=== PATIENT | female | born 1965 | race Two or more races ===

== ENCOUNTER 2017-01-03 17:39 | Observation (INO) | payer SELFPAY ==
[2017-01-03 17:50] VITALS: BMI 31.1
[2017-01-03 18:22] LABS: BASOPHIL 0.5 % (0-2.0); MCHC 33.9 g/dl (32.0-36.0); MEAN CELL VOLUME 88.3 fl (80-96); PLATELET COUNT 250 K/MM3 (134-434); RDW 14.5 % (11.6-15.6); WHITE BLOOD COUNT 9.6 K/mm3 (4.0-10.0)
[2017-01-03] MEDS ORDERED: ASPIRIN 81 MG CHEWABLE TABLETS ONE (18:22)
[2017-01-03 18:50] LABS: ALBUMIN 3.5 g/dl (3.4-5.0); ANION GAP 10 (8-16); CALCIUM 8.7 mg/dL (8.5-10.1); CO2 25 mmol/L (21-32); GLUCOSE,RANDOM 99 mg/dL (74-106); MAGNESIUM 1.7 mg/dL (1.8-2.4)
[2017-01-03] MEDS ORDERED: ASPIRIN 81 MG CHEWABLE TABLETS PO ONE (18:50)
[2017-01-03] MEDS ORDERED: NITROGLYCERIN SUBLINGUAL 1/150 0.4 MG TAB SL ONE (18:50)
[2017-01-03] MEDS ORDERED: SODIUM CHLORIDE 1,000 ML IV STA (18:50)
[2017-01-03 18:56] LABS: ALK PHOS 75 U/L (45-117); BILIRUBIN,TOTAL 0.4 mg/dL (0.2-1.0); CREATININE 0.9 mg/dL (0.55-1.02); SGOT/AST 41 U/L (15-37); SGPT/ALT 59 U/L (12-78); TOT PROT 7.6 g/dl (6.4-8.2); TROPONIN I < 0.02 ng/ml (0.00-0.05)
--- NOTE | 2017-01-03 18:59 | PDOC ---
History of Present Illness - General History Source: Patient, Old Records Exam Limitations: No Limitations - History of Present Illness Initial Comments: 01/03/17 19:13 The patient is a 51 year old female, with a significant past medical history of asthma and hypertension (patient has been noncompliant with medications for the past 3 months due to insurance issues), who presents to the emergency department with nonradiating midsternal chest pressure since the patient woke up this morning. The patient describes the chest pressure as squeezing and reports an associated tension-like headache. The patient states that she experienced similar symptoms in the past when her blood pressure was uncontrolled and was too high. The patient denies palpitations or shortness of breath. The patient denies fever, chills, cough, nausea, vomiting or any recent illnesses. Allergies: Morphine. Past Surgical History: None reported. Social History: Former smoker (quit 8 months ago). Denies alcohol or drug use. <Joselyn Guerrero - Last Filed: 01/03/17 20:59> - General History Source: Patient, Family Exam Limitations: No Limitations <Ernesto Heller - Last Filed: 01/03/17 21:29> - General Chief Complaint: Chest Pain Stated Complaint: CHEST PAIN Time Seen by Provider: 01/03/17 18:01 Past History <Joselyn Guerrero - Last Filed: 01/03/17 20:59> - Past Medical History Anemia: Yes (iron deficiency) Asthma: Yes HTN: Yes Thyroid Disease: Yes (hypo) - Immunization History Immunization Up to Date: Yes - Psycho/Social/Smoking Cessation Hx Anxiety: No Suicidal Ideation: No Smoking Status: No Smoking History: Never smoked Have you smoked in the past 12 months: Yes Number of Cigarettes Smoked Daily: 0 If you are a former smoker, when did you quit?: 8 months ago Information on smoking cessation initiated: No Hx Alcohol Use: No Drug/Substance Use Hx: No Substance Use Type: None <Ernesto Heller - Last Filed: 01/03/17 21:29> - Past Medical History Allergies/Adverse Reactions: Allergies Allergy/AdvReac Type Severity Reaction Status Date / Time morphine Allergy Severe Hives Verified 01/03/17 17:50 Home Medications: Ambulatory Orders Albuterol Sulfate [Proair Respiclick] 90 mcg IH Q3H PRN #1 aer.pow.[email or web address] 03/07/16 Amlodipine Besylate [Norvasc -] 10 mg PO DAILY #30 tablet 03/07/16 Salmeterol/Fluticasone [Advair 100Mcg/50Mcg -] 1 puff IH BID #1 inhaler Levothyroxine [Synthroid -] 75 mcg PO DAILY 05/05/16 Sertraline HCl [Zoloft -] 25 mg PO DAILY 05/05/16 Amoxicillin - [Amoxicillin 875mg Tablet -] 875 mg PO BID #14 tab 10/16/16 Review of Systems - Review of Systems Able to Perform ROS?: Yes Comments:: 01/03/17 19:11 GENERAL/CONSTITUTIONAL: No fever or chills. No weakness. HEAD, EYES, EARS, NOSE AND THROAT: No change in vision. No ear pain or discharge. No sore throat. CARDIOVASCULAR: +Chest pressure. No shortness of breath. RESPIRATORY: No cough, wheezing, or hemoptysis. GASTROINTESTINAL: No nausea, vomiting, diarrhea or constipation. GENITOURINARY: No dysuria, frequency, or change in urination. MUSCULOSKELETAL: No joint or muscle swelling or pain. No neck or back pain. SKIN: No rash. NEUROLOGIC: +Headache. No vertigo, loss of consciousness, or change in strength/ sensation. ENDOCRINE: No increased thirst. No abnormal weight change. HEMATOLOGIC/LYMPHATIC: No anemia, easy bleeding, or history of blood clots. ALLERGIC/IMMUNOLOGIC: No hives or skin allergy. <Joselyn Guerrero - Last Filed: 01/03/17 20:59> *Physical Exam - Vital Signs Last Vital Signs Temp Pulse Resp BP Pulse Ox 98 F 90 19 169/139 98 01/03/17 17:48 01/03/17 17:48 01/03/17 17:48 01/03/17 17:48 01/03/17 17:48 - Physical Exam Comments: 01/03/17 19:10 GENERAL: Awake, alert, and fully oriented, in no acute distress. HEAD: No signs of trauma. EYES: PERRLA, EOMI, sclera anicteric, conjunctiva clear. ENT: Auricles normal inspection, hearing grossly normal, nares patent, oropharynx clear without exudates. Moist mucosa. NECK: Normal ROM, supple, no lymphadenopathy, JVD, or masses. LUNGS: Breath sounds equal, clear to auscultation bilaterally. No wheezes, and no crackles. HEART: Regular rate and rhythm, normal S1 and S2, no murmurs, rubs or gallops. ABDOMEN: Soft, nontender, normoactive bowel sounds. No guarding, no rebound. No masses. EXTREMITIES: Normal range of motion, no edema. No clubbing or cyanosis. No cords , erythema, or tenderness. NEUROLOGICAL: Cranial nerves II through XII intact. Normal speech, normal gait. SKIN: Warm, dry, normal turgor, no rashes or lesions noted. <Joselyn Guerrero - Last Filed: 01/03/17 20:59> - Vital Signs Last Vital Signs Temp Pulse Resp BP Pulse Ox 98 F 90 19 169/139 98 01/03/17 17:48 01/03/17 17:48 01/03/17 17:48 01/03/17 17:48 01/03/17 17:48 <Ernesto Heller - Last Filed: 01/03/17 21:29> Heart Score/ECG Review - History History: Moderately suspicious - Electrocardiogram EKG: Normal - Age Age: 45-65 - Risk Factors Risk Factors Heart Score: Yes Hx Hypertension, Yes Hx Obesity Based on the list above the patient has:: 1-2 risk factors - Troponin Troponin: </= normal limit - Score Heart Score - Total: 3 #1 ECG reviewed & interpreted by me at: 17:50 01/03/17 18:55 NSR 86 no std/lianet, normal axis, normal intervals, QTC 457 msec. no brugada, no HOCM, no WPW <Ernesto Heller - Last Filed: 01/03/17 21:29> ED Treatment Course - LABORATORY CBC & Chemistry Diagram: 01/03/17 18:10 01/03/17 18:10 - ADDITIONAL ORDERS Additional order review: Laboratory Results 01/03/17 01/03/17 18:10 18:10 Sodium 140 Potassium 3.7 Chloride 105 Carbon Dioxide 25 Anion Gap 10 BUN 12 Creatinine 0.9 Creat Clearance w eGFR > 60 Random Glucose 99 Calcium 8.7 Magnesium 1.7 L Total Bilirubin 0.4 D AST 41 H D ALT 59 D Alkaline Phosphatase 75 Creatine Kinase 96 Troponin I < 0.02 Total Protein 7.6 Albumin 3.5 Serum , Qual Negative 01/03/17 18:10 RBC 4.16 MCV 88.3 MCHC 33.9 RDW 14.5 MPV 8.0 Neutrophils % 69.0 Lymphocytes % 21.2 Monocytes % 6.3 Eosinophils % 3.0 Basophils % 0.5 - Medications Given in the ED: ED Medications Discontinued Medications Generic Name Dose Route Start Last Admin Trade Name Tomq PRN Reason Stop Dose Admin Aspirin 324 mg 01/03/17 18:50 01/03/17 18:59 Asa - PO 01/03/17 18:51 324 mg ONCE ONE Administration Nitroglycerin 0.4 mg 01/03/17 18:50 01/03/17 18:40 Nitrostat - SL 01/03/17 18:51 0.4 mg ONCE ONE Administration <Joselyn Guerrero - Last Filed: 01/03/17 20:59> - LABORATORY CBC & Chemistry Diagram: 01/03/17 18:10 01/03/17 18:10 - ADDITIONAL ORDERS Additional order review: Laboratory Results 01/03/17 18:10 Serum , Qual Negative 01/03/17 18:10 RBC 4.16 MCV 88.3 MCHC 33.9 RDW 14.5 MPV 8.0 Neutrophils % 69.0 Lymphocytes % 21.2 Monocytes % 6.3 Eosinophils % 3.0 Basophils % 0.5 - RADIOLOGY Radiology Studies Ordered: Category Date Time Status HEAD CT WITHOUT CONTRAST [CT] Stat CT Scan 01/03/17 18:10 Ordered CHEST X-RAY PORTABLE* [RAD] Stat Radiology 01/03/17 18:10 Completed <Ernesto Heller - Last Filed: 01/03/17 21:29> Medical Decision Making - Medical Decision Making 01/03/17 19:16 EXAM: RAD/CHEST X-RAY PORTABLE Reviewed By: Dr. Destiny Santos IMPRESSION: No acute cardiopulmonary disease is present. EXAM: CT/HEAD CT Reviewed By: Dr. Berenice Townsend IMPRESSION: 1. There is no evidence of an acute intracranial process, intracranial hemorrhage or mass effect. 2. The ventricles are normal size. 3. 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 There is mild to moderate right ethmoid and sphenoid sinus mucosal thickening. <Joselyn Guerrero - Last Filed: 01/03/17 20:59> - Medical Decision Making 01/03/17 18:57 A portion of this note was documented by scribe services under my direction. I have reviewed the details of the note, within reason, and agree with the documentation with the following case summary and management plan written by me. Patient treated in the ED. Nursing notes are reviewed and incorporated into the medical decision-making. Vital signs reviewed. Peripheral IV access obtained by the nurse, laboratory studies are drawn and sent, reviewed and interpreted by myself. Vital Signs Temp Pulse Resp BP Pulse Ox 98 F 90 19 169/139 98 01/03/17 17:48 01/03/17 17:48 01/03/17 17:48 01/03/17 17:48 01/03/17 17:48 51-year-old female with past medical history of hypertension, asthma presents to the ED for elevated blood pressures and chest pressure. Patient reported yesterday feeling fatigued but without any focal symptoms. Today, patient woke up with chest tightness radiating up to her head. Reports a tension-like headache. She reports that she's not been taking her blood pressure medication last 3 months as she is having insurance issues. She does not remember the name of her medicines. Patient reported that she had a similar incident several years ago chest tightness in setting hypertension. She was admitted and worked up but did not have an VT at that time. Patient noted have elevated blood pressures here. We'll need to rule out VT. Given the headache and elevated blood pressure, we'll obtain head CT, though I have low suspicions for subarachnoid hemorrhage. We'll trial nitroglycerin and aspirin. We will admit the patient to the hospital for further nausea for cardiac workup. 01/03/17 21:[address] reviewed. No acute findings. Nitro improved blood pressure CBC, BMP 01/03/17 18:10 01/03/17 18:10 CMP Sodium 140 mmol/L (136-145) 01/03/17 18:10 Potassium 3.7 mmol/L (3.5-5.1) 01/03/17 18:10 Chloride 105 mmol/L (98-107) 01/03/17 18:10 Carbon Dioxide 25 mmol/L (21-32) 01/03/17 18:10 Anion Gap 10 (8-16) 01/03/17 18:10 BUN 12 mg/dL (7-18) 01/03/17 18:10 Creatinine 0.9 mg/dL (0.55-1.02) 01/03/17 18:10 Creat Clearance w eGFR > 60 (>60) 01/03/17 18:10 Random Glucose 99 mg/dL (74-106) 01/03/17 18:10 Calcium 8.7 mg/dL (8.5-10.1) 01/03/17 18:10 Magnesium 1.7 mg/dL (1.8-2.4) L 01/03/17 18:10 Total Bilirubin 0.4 mg/dL (0.2-1.0) D 01/03/17 18:10 AST 41 U/L (15-37) H D 01/03/17 18:10 ALT 59 U/L (12-78) D 01/03/17 18:10 Alkaline Phosphatase 75 U/L (45-117) 01/03/17 18:10 Creatine Kinase 96 IU/L (26-192) 01/03/17 18:10 Troponin I < 0.02 ng/ml (0.00-0.05) 01/03/17 18:10 Total Protein 7.6 g/dl (6.4-8.2) 01/03/17 18:10 Albumin 3.5 g/dl (3.4-5.0) 01/03/17 18:10 Serum , Qual Negative 01/03/17 18:10 Labs reviewed. Pt's chest pain persist despite nitro. Will admit for TASHA. Case discussed with Dr. Montalvo. She accepts under telemetry observation. Case discussed in detail with admitting physician including history, physical exam and ancillary studies. Admitting physician has assumed care for the patient, will follow all pending diagnostics and will complete the evaluation and treatment. <Ernesto Heller - Last Filed: 01/03/17 21:29> *DC/Admit/Observation/Transfer - Attestations Scribe Attestion: 01/03/17 19:10 Documentation prepared by Joselyn Guerrero, acting as medical technologist clinical for Ernesto Heller MD. <Joselyn Guerrero - Last Filed: 01/03/17 20:59> - Discharge Dispostion Admit: Yes <Erensto Heller - Last Filed: 01/03/17 21:29> Diagnosis at time of Disposition: Chest pain Qualifiers: Chest pain type: unspecified Qualified Code(s): R07.9 - Chest pain, unspecified - Discharge Dispostion Condition at time of disposition: Stable
[2017-01-03] MEDS ORDERED: ACETAMINOPHEN INJECTION 100 ML IVPB ONE (19:50)
[2017-01-03] MEDS ORDERED: ACETAMINOPHEN 1000 MG/100 ML VIAL (NON FORMULARY) IVPB ONE (20:00)
[2017-01-03] MEDS ORDERED: HYDROmorphone HCL CARPU-JECT 1 MG/1 ML DISP.SYRIN IVPB ONE (21:28)
[2017-01-03] MEDS ORDERED: PATIENT'S OWN MEDICATION (NON-FORMULARY) (Albuterol Sulfate [Proair Respiclick] 90 MCG) IH PRN (22:19)
[2017-01-03] MEDS ORDERED: ONDANSETRON 4 MG/2 ML VIAL IVPB PRN (22:25)
[2017-01-03] MEDS ORDERED: HYDROmorphone HCL CARPU-JECT 1 MG/1 ML DISP.SYRIN IVPUSH PRN (22:25)
[2017-01-03] MEDS ORDERED: NITROGLYCERIN SUBLINGUAL 1/150 0.4 MG TAB SL PRN (22:25)
[2017-01-03] MEDS ORDERED: ENALAPRILAT DIHYDRATE 1.25 MG/1 ML VIAL IVPB PRN (22:29)
[2017-01-03] MEDS ORDERED: DEXTROSE 5%-NORMAL SALINE 1,000 ML IV SCH (22:30)
--- NOTE | 2017-01-03 22:34 | HP ---
<Alexandria Lobato - Last Filed: 01/03/17 22:47> CHIEF COMPLAINT: Chest Pain PCP: -- HISTORY OF PRESENT ILLNESS: The patient is a 51 yo F who presents to the ED with CC of mid sternal chest pain, constant, 10/10 in severity, pressure like, that started in the middle of the night with associated cold sweats. She denies any exacerbating or alleviating factors. She denies taking any medications for pain relief. The patient reports previous episodes of chest pain couple of years ago where she was hospitalized and had undergone stress test but was unable to tolerate it. Patient unable to follow up with PCP due to insurance issues. Patient also complains of sore throat, which she was treated for with Amoxicillin with no relief. The patient presents to the ED for further evaluation. She denies SOB, headache or dizziness. She denies fever, chills, nausea, vomit, diarrhea or constipation. She denies dysuria, frequency, urgency or hematuria. PMHx: HTN, Asthma, Hypothyroidism, Varicose veins, Peptic ulcerative disease PSHx: Tubal ligation, Uterine fibroid surgery Allergies: Morphine Family Hx: Father at age 78 due to CAD and AL , Grandmother and mother with unknown CA Social Hx: Former smoker (30 packs/year) since age of 17 Recent Travel: None HOME MEDICATIONS: Home Medications Medication Instructions Recorded Albuterol Sulfate [Proair 90 mcg IH Q3H PRN #1 aer.pow.ba 03/07/16 Respiclick] Amlodipine Besylate [Norvasc -] 10 mg PO DAILY #30 tablet 03/07/16 Salmeterol/Fluticasone [Advair 1 puff IH BID #1 inhaler 03/07/16 100Mcg/50Mcg -] Levothyroxine [Synthroid -] 75 mcg PO DAILY 05/05/16 Sertraline HCl [Zoloft -] 25 mg PO DAILY 05/05/16 Amoxicillin - [Amoxicillin 875mg 875 mg PO BID #14 tab 10/16/16 Tablet -] REVIEW OF SYSTEMS CONSTITUTIONAL: Absent: fever, chills, diaphoresis, generalized weakness, malaise, loss of appetite, weight change HEENT: +cough. +sore throat. Absent: rhinorrhea, nasal congestion, throat swelling, difficulty swallowing, mouth swelling, ear pain, eye pain, visual changes CARDIOVASCULAR: Absent: chest pain, syncope, palpitations, irregular heart rate, lightheadedness , peripheral edema RESPIRATORY: Absent: cough, shortness of breath, dyspnea with exertion, orthopnea, wheezing, stridor, hemoptysis GASTROINTESTINAL: +acid reflux. Absent: abdominal pain, abdominal distension, nausea, vomiting, diarrhea, constipation, melena, hematochezia GENITOURINARY: Absent: dysuria, frequency, urgency, hesitancy, hematuria, flank pain, genital pain MUSCULOSKELETAL: Absent: myalgia, arthralgia, joint swelling, back pain, neck pain SKIN: Absent: rash, itching, pallor HEMATOLOGIC/IMMUNOLOGIC: Absent: easy bleeding, easy bruising, lymphadenopathy, frequent infections ENDOCRINE: Absent: unexplained weight gain, unexplained weight loss, heat intolerance, cold intolerance NEUROLOGIC: +headache Absent: focal weakness or paresthesias, dizziness, unsteady gait, seizure, mental status changes, bladder or bowel incontinence PSYCHIATRIC: Absent: anxiety, depression, suicidal or homicidal ideation, hallucinations. PHYSICAL EXAMINATION Vital Signs - 24 hr 01/03/17 01/03/17 17:48 19:20 Temperature 98 F Pulse Rate 90 Pulse Rate [ 58 L Apical] Respiratory 19 18 Rate Blood Pressure 169/139 Blood Pressure 152/102 [Right Arm] O2 Sat by Pulse 98 99 Oximetry (%) GENERAL: Awake, alert, and fully oriented, in no acute distress. HEAD: Normal with no signs of trauma. EYES: Pupils equal, round and reactive to light, extraocular movements intact, sclera anicteric, conjunctiva clear. No lid lag. EARS, NOSE, THROAT: Ears normal, nares patent, oropharynx. Moist mucous membranes. +erythema with no exudates. NECK: Normal range of motion, supple without lymphadenopathy, JVD, or masses. LUNGS: Breath sounds equal, clear to auscultation bilaterally. No wheezes, and no crackles. No accessory muscle use. HEART: Regular rate and rhythm, normal S1 and S2 without murmur, rub or gallop. +Reproducible chest pain. ABDOMEN: + Epigastric tenderness to palpation. Soft, nontender, not distended, normoactive bowel sounds, no guarding, no rebound, no masses. No hepatomegaly or splenomegaly. MUSCULOSKELETAL: Normal range of motion at all joints. No bony deformities or tenderness. No CVA tenderness. UPPER EXTREMITIES: 2+ pulses, warm, well-perfused. No cyanosis. No clubbing. No peripheral edema. LOWER EXTREMITIES: 2+ pulses, warm, well-perfused. No calf tenderness. No peripheral edema. NEUROLOGICAL: Cranial nerves II-XII intact. Normal speech. PSYCHIATRIC: Cooperative. Good eye contact. Appropriate mood and affect. SKIN: Warm, dry, normal turgor, no rashes or lesions noted, normal capillary refill. Laboratory Results - last 24 hr 01/03/17 01/03/17 01/03/17 18:10 18:10 18:10 WBC 9.6 RBC 4.16 Hgb 12.5 Hct 36.7 MCV 88.3 MCHC 33.9 RDW 14.5 Plt Count 250 MPV 8.0 Neutrophils % 69.0 Lymphocytes % 21.2 Monocytes % 6.3 Eosinophils % 3.0 Basophils % 0.5 Sodium 140 Potassium 3.7 Chloride 105 Carbon Dioxide 25 Anion Gap 10 BUN 12 Creatinine 0.9 Creat Clearance w eGFR > 60 Random Glucose 99 Calcium 8.7 Magnesium 1.7 L Total Bilirubin 0.4 D AST 41 H D ALT 59 D Alkaline Phosphatase 75 Creatine Kinase 96 Troponin I < 0.02 Total Protein 7.6 Albumin 3.5 Serum , Qual Negative EKG Reviewed by Dr. Montalvo Impression: NSR at 86 bpm ASSESSMENT/PLAN: 51 yo F with PMhx of HTN presents with atypical chest pain. 1.) Chest pain/ Atypical, musculoskeletal however considering risk factors will have to r/o ACS. Patient has epigastric tenderness and gastritis/peptic ulcerative disease cannot be excluded. Plan: -Serial cardiac enzymes -Aspirin -BP control -IV PPIs -Pain control with IV Dilaudid prn (avoid NSAIDs) 2.) Uncontrolled HTN Plan: -Will start low dose of amlodipine -Monitor BP -Adjust medications accordingly 3.) Hypothyroidism Plan: -Will continue with current dose synthroid 4.) Hx of Asthma Plan: -Currently stable -Plan to continue Advair and Albuterol as needed 5.) Sore throat: Patient apparently completed dose of amoxicillin as outpatient 6.) Gastritis, Possible peptic ulcerative disease Plan: - IV PPIs -Clear liquid diet -Will involve Gi if no improvement of her symptoms -US of RUQ to r/o cholecystitis 7.) DVT PPx -SCDs Admitted for inpatient observation. Documentation prepared by Alexandria Lobato, acting as medical surgery nurse for Sara Montalvo MD. <Sara Montalvo - Last Filed: 01/03/17 22:53> Visit type - Emergency Visit Emergency Visit: Yes Care time: The patient presented to the Emergency Department on the above date and was hospitalized for further evaluation of their emergent condition. - New Patient This patient is new to me today: Yes Date on this admission: 01/03/17 - Critical Care Critical Care patient: No
[2017-01-04] MEDS ORDERED: ONDANSETRON 4 MG/2 ML VIAL ONE (03:21)
[2017-01-04] MEDS ORDERED: HYDROmorphone HCL CARPU-JECT 1 MG/1 ML DISP.SYRIN ONE ×2 (03:21)
[2017-01-04] MEDS ORDERED: LEVOTHYROXINE NA 75 MCG TABLET (FP) PO SCH (07:00)
[2017-01-04 07:10] LABS: ALBUMIN 2.9 g/dl (3.4-5.0); ANION GAP 11 (8-16); CALCIUM 7.8 mg/dL (8.5-10.1); CHOLESTEROL 165 mg/dL (50-200); CO2 22 mmol/L (21-32); CREATININE 0.8 mg/dL (0.55-1.02); GLUCOSE,RANDOM 87 mg/dL (74-106); MAGNESIUM 1.6 mg/dL (1.8-2.4); SGOT/AST 22 U/L (15-37); SGPT/ALT 44 U/L (12-78); TOT PROT 6.5 g/dl (6.4-8.2)
[2017-01-04 07:11] LABS: ALK PHOS 67 U/L (45-117); BILIRUBIN,TOTAL 0.5 mg/dL (0.2-1.0); LDL CHOLESTEROL (ONLY SJRH) 88 mg/dL (5-100)
[2017-01-04] MEDS ORDERED: LEVOTHYROXINE NA 25 MCG TABLET (FP) ONE (08:05)
[2017-01-04 08:22] LABS: TROPONIN I < 0.02 ng/ml (0.00-0.05)
[2017-01-04] MEDS ORDERED: FLUTICASONE/SALMETEROL 100 MCG/50 MCG DISKUS IH SCH (10:00)
[2017-01-04] MEDS ORDERED: SERTRALINE HCL 25 MG TABLET (FP) PO SCH (10:00)
[2017-01-04] MEDS ORDERED: ASPIRIN COATED 81 MG TABLET.EC PO SCH (10:00)
[2017-01-04] MEDS ORDERED: PANTOPRAZOLE SODIUM 100 ML IVPB SCH (10:00)
[2017-01-04] MEDS ORDERED: amLODIPine BESYLATE 10 MG TABLET (FP) PO SCH (10:00)
[2017-01-04] MEDS ORDERED: SERTRALINE HCL 50 MG TABLET (FP) ONE (10:19)
[2017-01-04] MEDS ORDERED: PANTOPRAZOLE SODIUM 100 ML IVPB ONE (10:19)
[2017-01-04] MEDS ORDERED: amLODIPine BESYLATE 5 MG TABLET (FP) ONE (10:21)
--- NOTE | 2017-01-04 11:32 | EKG ---
Test Reason : Blood Pressure : / mmHG Vent. Rate : 061 BPM Atrial Rate : 061 BPM P-R Int : 160 ms QRS Dur : 086 ms QT Int : 452 ms P-R-T Axes : 026 014 023 degrees QTc Int : 455 ms NORMAL SINUS RHYTHM NORMAL ECG WHEN COMPARED WITH ECG OF 05-MAY-2016 14:30, NO SIGNIFICANT CHANGE WAS FOUND Confirmed by FLORENTIN TAYLOR MD ([id number]) on 01/04/2017 11:32:19 AM Referred By: Confirmed By:FLORENTIN TAYLOR MD
--- NOTE | 2017-01-04 11:46 | EKG ---
Test Reason : Blood Pressure : / mmHG Vent. Rate : 062 BPM Atrial Rate : 062 BPM P-R Int : 164 ms QRS Dur : 084 ms QT Int : 464 ms P-R-T Axes : 033 025 025 degrees QTc Int : 470 ms NORMAL SINUS RHYTHM NORMAL ECG WHEN COMPARED WITH ECG OF 04-JAN-2017 06:27, NO SIGNIFICANT CHANGE WAS FOUND Confirmed by FLORENTIN TAYLOR MD ([id number]) on 01/04/2017 11:45:58 AM Referred By: JAMIN NOVA Confirmed By:FLORENTIN TAYLOR MD
[2017-01-04] MEDS ORDERED: PNEUMOC 13-VAL CONJ-DIP CRM/PF 0.5 ML DISP.SYRIN IM ONE (11:47)
[2017-01-04] MEDS ORDERED: INFLUENZA VACCINE 45 MCG/0.5 ML (MDV 16-17) IM ONE (11:47)
[2017-01-04 12:45] LABS: TROPONIN I < 0.02 ng/ml (0.00-0.05)
[2017-01-04] MEDS ORDERED: ACETAMINOPHEN 325 MG TABLET (FP) PO PRN (13:21)
[2017-01-04] MEDS ORDERED: MAGNESIUM SULF 50% (8.12 MEQ/2 ML-1 GM VIAL) IVPB ONE (13:50)
--- NOTE | 2017-01-04 13:53 | DS ---
Physical Exam: SUBJECTIVE: Patient seen and examined OBJECTIVE: Vital Signs Period Temp Pulse Resp BP Sys/Sigala Pulse Ox Last 24 Hr 97.2 F-98.4 F 61-69 16-18 131-153/78-84 98-100 PHYSICAL EXAM GENERAL: The patient is awake, alert, and fully oriented, in no acute distress. HEAD: Normal with no signs of trauma. EYES: PERRL, extraocular movements intact, sclera anicteric, conjunctiva clear. ENT: Ears normal, nares patent, oropharynx clear without exudates, moist mucous membranes. NECK: Trachea midline, full range of motion, supple. LUNGS: Breath sounds equal, clear to auscultation bilaterally, no wheezes, no crackles, no accessory muscle use. HEART: Regular rate and rhythm, S1, S2 without murmur, rub or gallop. ABDOMEN: Soft, nontender, nondistended, normoactive bowel sounds, no guarding, no rebound, no hepatosplenomegaly, no masses. EXTREMITIES: 2+ pulses, warm, well-perfused, no edema. NEUROLOGICAL: Cranial nerves II through XII grossly intact. Normal speech, gait not observed. PSYCH: Normal mood, normal affect. SKIN: Warm, dry, normal turgor, no rashes or lesions noted. LABS Laboratory Results - last 24 hr 01/04/17 01/04/17 06:05 12:06 Sodium 139 Potassium 3.8 Chloride 106 Carbon Dioxide 22 Anion Gap 11 BUN 10 Creatinine 0.8 Creat Clearance w eGFR > 60 Random Glucose 87 Calcium 7.8 L Magnesium 1.6 L Total Bilirubin 0.5 D AST 22 D ALT 44 D Alkaline Phosphatase 67 Creatine Kinase 68 67 Troponin I < 0.02 < 0.02 Total Protein 6.5 Albumin 2.9 L Triglycerides 195 H Cholesterol 165 Total LDL Cholesterol 88 HDL Cholesterol 57 CBC, BMP 01/03/17 18:10 01/04/17 06:05 HOSPITAL COURSE: Date of Admission:01/03/17 The patient is a 51 yo F who presents to the ED with CC of mid sternal chest pain, constant, 10/10 in severity, pressure like, that started in the middle of the night with associated cold sweats. She denies any exacerbating or alleviating factors. She denies taking any medications for pain relief. The patient reports previous episodes of chest pain couple of years ago where she was hospitalized and had undergone stress test but was unable to tolerate it. Patient unable to follow up with PCP due to insurance issues. Patient also complains of sore throat, which she was treated for with Amoxicillin with no relief. The patient presents to the ED for further evaluation. She denies SOB, headache or dizziness. She denies fever, chills, nausea, vomit, diarrhea or constipation. She denies dysuria, frequency, urgency or hematuria. Our working diagnosis was atypical chest pain r/o ACS mostly likely musculoskeletal and GI origin. We trended the troponins, it was negative x3. we did 2 ekgs, they were both normal with NSR. Chest Xray was negative. US right upper quadrant did not show cholecystitis or cholelithiasis but showed fatty liver. The patient had high blood pressure on admission but after receiving amlodipine her blood pressure normalized. Overnight there was no even on the monitor. The epigastric pain has subsided with PPI. Pt still have chest wall tenderness which diminished with acetaminophen. So a diagnosis of Costochodritis and mild gastritis was made. Pt is discharge with Acetaminophen, Nexium/Zantac. Pt is to follow up with PCP, gastroeneterology within 1 week. 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 Referrals: Jacob Chandler MD [Staff Physician] - Americo Ivan MD [Staff Physician] - John Ojeda MD [Staff Physician] - Disposition: HOME - Home Medications Comprehensive Discharge Medication List: Ambulatory Orders Albuterol Sulfate [Proair Respiclick] 90 mcg IH Q3H PRN #1 aer.pow.[email or web address] 03/07/16 Amlodipine Besylate [Norvasc -] 10 mg PO DAILY #30 tablet 03/07/16 Salmeterol/Fluticasone [Advair 100Mcg/50Mcg -] 1 puff IH BID #1 inhaler Levothyroxine [Synthroid -] 75 mcg PO DAILY 05/05/16 Sertraline HCl [Zoloft -] 25 mg PO DAILY 05/05/16 Zolpidem Tartrate [Ambien] 5 mg PO HS PRN 01/04/17 This patient is new to me today: Yes Date on this admission: 01/04/17 Emergency Visit: Yes ED Registration Date: 01/03/17 Care time: The patient presented to the Emergency Department on the above date and was hospitalized for further evaluation of their emergent condition. Critical Care patient: No - Discharge Referral Referred to [facility] Med P.C.: No
--- NOTE | 2017-01-04 14:52 | PN ---
Teaching Attending Note Name of Resident: Jalele Sadler ATTENDING PHYSICIAN STATEMENT I saw and evaluated the patient. I reviewed the resident's note and discussed the case with the resident. I agree with the resident's findings and plan as documented. SUBJECTIVE: seen and evaluated at the bedside OBJECTIVE: layrngitic speech, reproducible chest wall tendernes ASSESSMENT AND PLAN: 51 year old woman admitted for atypical chest pain -EKG shows no ischemic changes -trops negative -chest pain is clearly reproducible -for discharge home with PPI and instruction to stay hydrated for viral illness and to see PMD and GI as outpatient
[2017-01-04 14:57] VITALS: BP 150/91; PULSE 90; TEMP 98
[2017-01-04] MEDS ORDERED: ATORVASTATIN CA 40 MG TABLET (FP) PO SCH (22:00)
--- NOTE | 2017-01-08 22:47 | EKG ---
Test Reason : Blood Pressure : / mmHG Vent. Rate : 086 BPM Atrial Rate : 086 BPM P-R Int : 132 ms QRS Dur : 084 ms QT Int : 382 ms P-R-T Axes : 038 049 042 degrees QTc Int : 457 ms NORMAL SINUS RHYTHM NORMAL ECG WHEN COMPARED WITH ECG OF 05-MAY-2016 14:30, NO SIGNIFICANT CHANGE WAS FOUND Confirmed by YUE MERCEDES MD ([id number]) on 01/08/2017 10:46:50 PM Referred By: Confirmed By:YUE MERCEDES MD
== END 2017-01-04 15:20 | disposition home or self-care (01) ==
LOC: JER 17:39 → JERBED 21:29 → UNDOADMOB 01-04 00:48
PROVIDERS: ADMIT Internal Medicine; ATTEND Internal Medicine
PROC: 3E033NZ Introduction of Analgesics, Hypnotics, Sedatives into Peripheral Vein, Percutaneous Approach (ICD-10-PCS; principal; 2017-01-03)
PROC: 3E033GC Introduction of Other Therapeutic Substance into Peripheral Vein, Percutaneous Approach (ICD-10-PCS; 2017-01-03)
PROC: 3E0337Z Introduction of Electrolytic and Water Balance Substance into Peripheral Vein, Percutaneous Approach (ICD-10-PCS; 2017-01-03)
PROC: 3E0F7GC Introduction of Other Therapeutic Substance into Respiratory Tract, Via Natural or Artificial Opening (ICD-10-PCS; 2017-01-03)
PROC: 3E0234Z Introduction of Serum, Toxoid and Vaccine into Muscle, Percutaneous Approach (ICD-10-PCS; 2017-01-03)
DX: R07.89 Other chest pain (principal); I10 Essential (primary) hypertension; R51 Headache; D50.9 Iron deficiency anemia, unspecified; D03.9 Melanoma in situ, unspecified; J45.909 Unspecified asthma, uncomplicated; Z91.14 Patient's other noncompliance with medication regimen; E66.9 Obesity, unspecified; Z68.31 Body mass index [BMI] 31.0-31.9, adult; J02.9 Acute pharyngitis, unspecified; I83.90 Asymptomatic varicose veins of unspecified lower extremity; K27.9 Peptic ulcer, site unspecified, unspecified as acute or chronic, without hemorrhage or perforation; K29.70 Gastritis, unspecified, without bleeding; Z87.891 Personal history of nicotine dependence; Z86.718 Personal history of other venous thrombosis and embolism
CPT/HCPCS: 36415; 70450-TC; 71010-TC; 76705-TC; 80053; 80061; 82550; 83721; 83735; 84484; 84703; 85025; 93005; 93010; 99285-25; G0378

== ENCOUNTER 2017-03-01 12:13 | Inpatient (IN) | payer SELFPAY ==
--- NOTE | 2017-03-01 14:38 | PDOC ---
*Physical Exam - Vital Signs Last Vital Signs Temp Pulse Resp BP Pulse Ox 98.9 F 99 H 18 141/98 100 03/01/17 12:31 03/01/17 12:31 03/01/17 12:31 03/01/17 12:31 03/01/17 12:31 ED Treatment Course - LABORATORY CBC & Chemistry Diagram: 03/02/17 07:30 03/02/17 07:30 Medical Decision Making - Medical Decision Making 03/01/17 15:22 Pt seen by Midlevel Provider under my direct supervision Ancillary studies reviewed I agree with plan as outlined by Midlevel Provider *DC/Admit/Observation/Transfer Diagnosis at time of Disposition: Colitis - Discharge Dispostion Condition at time of disposition: Fair
[2017-03-01] MEDS ORDERED: HYDROmorphone HCL CARPU-JECT 2 MG/1 ML DISP.SYRIN IVPB ONE ×2 (14:50→17:34)
[2017-03-01] MEDS ORDERED: SODIUM CHLORIDE 1,000 ML IV STA ×2 (14:55→17:41)
[2017-03-01] MEDS ORDERED: ONDANSETRON 4 MG/2 ML VIAL IVPUSH ONE (14:55)
[2017-03-01 15:12] LABS: BASOPHIL 0.4 % (0-2.0); MCH 29.5 pg (25.7-33.7); MCHC 32.7 g/dl (32.0-36.0); MEAN CELL VOLUME 90.2 fl (80-96); MEAN PLT VOLUME 7.8 fl (7.5-11.1); NEUTROPHILS 85.3 % (42.8-82.8); PLATELET COUNT 216 K/MM3 (134-434); RDW 13.4 % (11.6-15.6); WHITE BLOOD COUNT 9.3 K/mm3 (4.0-10.0)
[2017-03-01 15:14] LABS: URINE APPEARANCE CLEAR; URINE BILIRUBIN NEGATIVE (NEGATIVE); URINE COLOR YELLOW; URINE GLUCOSE (UA) NEGATIVE (NEGATIVE); URINE KETONE 1+ (NEGATIVE); URINE LEUK ESTERASE NEGATIVE (NEGATIVE); URINE NITRITE NEGATIVE (NEGATIVE); URINE UROBILINOGEN NEGATIVE E.U./dl (0.2-1.0)
[2017-03-01 15:15] LABS: URINE BLOOD 1+ (NEGATIVE); URINE PROTEIN 2+ (NEGATIVE)
[2017-03-01 15:16] LABS: URINE HYALINE CAST 1 /lpf; URINE MUCUS RARE; URINE RBC 46 /hpf (0-3); URINE WBC 1 /hpf (3-5)
--- NOTE | 2017-03-01 15:24 | PDOC ---
History of Present Illness - General Chief Complaint: Pain Stated Complaint: RT SIDE PAIN Time Seen by Provider: 03/01/17 14:27 History Source: Patient - History of Present Illness Timing/Duration: reports: getting worse Past History - Past Medical History Allergies/Adverse Reactions: Allergies Allergy/AdvReac Type Severity Reaction Status Date / Time morphine Allergy Severe Hives Verified 03/01/17 12:31 Home Medications: Ambulatory Orders Amlodipine Besylate [Norvasc -] 10 mg PO DAILY #30 tablet 03/07/16 Levothyroxine [Synthroid -] 75 mcg PO DAILY 05/05/16 Anemia: Yes (iron deficiency) Asthma: Yes HTN: Yes Hypercholesterolemia: Yes Thyroid Disease: Yes (hypo) - Immunization History Immunization Up to Date: Yes - Psycho/Social/Smoking Cessation Hx Anxiety: No Suicidal Ideation: No Smoking Status: No Smoking History: Never smoked Have you smoked in the past 12 months: No Number of Cigarettes Smoked Daily: 0 If you are a former smoker, when did you quit?: 8 months ago Information on smoking cessation initiated: No Hx Alcohol Use: No Drug/Substance Use Hx: No Substance Use Type: None Review of Systems - Review of Systems Constitutional: Yes: Fever ABD/GI: Yes: Diarrhea, Nausea, Vomiting, Abdominal cramping : No: Dysuria, Flank Pain, Hematuria *Physical Exam - Vital Signs Last Vital Signs Temp Pulse Resp BP Pulse Ox 98.9 F 99 H 18 141/98 100 03/01/17 12:31 03/01/17 12:31 03/01/17 12:31 03/01/17 12:31 03/01/17 12:31 - Physical Exam General Appearance: Yes: Appropriately Dressed, Severe Distress HEENT: positive: Normal Voice Neck: positive: Supple Respiratory/Chest: negative: Respiratory Distress Gastrointestinal/Abdominal: positive: Tender (sig ttp to RLQ and mid lower abd, no CVAT) Musculoskeletal: negative: CVA Tenderness Integumentary: positive: Dry, Warm Neurologic: positive: Fully Oriented, Alert, Normal Mood/Affect ED Treatment Course - LABORATORY CBC & Chemistry Diagram: 03/01/17 15:00 03/01/17 15:00 - ADDITIONAL ORDERS Additional order review: Laboratory Results 03/01/17 14:55 Urine Color Yellow Urine Appearance Clear Urine pH 6.0 Urine Protein 2+ H Urine Glucose (UA) Negative Urine Ketones 1+ H Urine Blood 1+ H Urine Nitrite Negative Urine Bilirubin Negative Urine Urobilinogen Negative Ur Leukocyte Esterase Negative 03/01/17 15:00 RBC 4.22 MCV 90.2 MCHC 32.7 RDW 13.4 MPV 7.8 Neutrophils % 85.3 H D Lymphocytes % 9.2 D Monocytes % 5.1 Eosinophils % 0.0 D Basophils % 0.4 - RADIOLOGY Radiology Studies Ordered: Category Date Time Status ABDOMEN & PELVIS CT WITH CONTR [CT] Stat CT Scan 03/01/17 14:48 Ordered Medical Decision Making - Medical Decision Making 03/01/17 15:18 52 yo F, asthma, myomectomy, p/w lower abd pain w/ n/v/d and fever. Pt states sxs started 3 days ago and constant w/ highest temp of 100. Taking otc meds w/ no relief. No recent travel, abx use or sick contact. No acute sxs or vaginal discharge. No h/o similar sxs See exam R/o appy vs colitis, possibly diverticulitis, ?renal colic -pain control -zofran -IVF -labs -CT 03/01/17 15:25 03/01/17 17:[address], no e/o appy, diverticulitis, abscess or acute pelvic ab/ nl. labs wnl. On reassessment, pt continues to appear uncomfortable and writhing in pain on stretcher. May benefit from admission to OBs for abx, pain control and reassessment 03/01/17 17:39 03/01/17 17:41 03/01/17 18:09 Pt admitted to hospitalist for pain control *DC/Admit/Observation/Transfer Diagnosis at time of Disposition: Colitis - Discharge Dispostion Condition at time of disposition: Fair Admit: Yes
[2017-03-01 15:26] LABS: INR 1.02 (0.82-1.09); PROTHROMBIN TIME (PATIENT) 11.2 SEC (9.98-11.88)
[2017-03-01] MEDS ORDERED: HYDROmorphone HCL CARPU-JECT 2 MG/1 ML DISP.SYRIN ONE ×2 (15:45→17:52)
[2017-03-01] MEDS ORDERED: ONDANSETRON 4 MG/2 ML VIAL ONE (15:45)
[2017-03-01 15:50] LABS: ALBUMIN 3.5 g/dl (3.4-5.0); ALK PHOS 76 U/L (45-117); ANION GAP 10 (8-16); BILIRUBIN,TOTAL 0.5 mg/dL (0.2-1.0); CALCIUM 9.1 mg/dL (8.5-10.1); CO2 25 mmol/L (21-32); CREATININE 0.9 mg/dL (0.55-1.02); GLUCOSE,RANDOM 108 mg/dL (74-106); SGOT/AST 20 U/L (15-37); SGPT/ALT 22 U/L (12-78); TOT PROT 7.9 g/dl (6.4-8.2)
[2017-03-01] MEDS ORDERED: CIPROFLOXACIN 500 MG TABLET (RESTRICTED TO ID) PO ONE (17:04)
[2017-03-01] MEDS ORDERED: metroNIDAZOLE 500 MG TABLET PO ONE (17:04)
[2017-03-01] MEDS ORDERED: CIPROFLOXACIN 400 MG/D5W 200 ML IVPB ONE (17:34)
[2017-03-01] MEDS ORDERED: METOCLOPRAMIDE HCL INJECTION 10 MG/2 ML VIAL IVPB ONE (17:41)
[2017-03-01] MEDS ORDERED: METOCLOPRAMIDE HCL INJECTION 10 MG/2 ML VIAL ONE (17:52)
[2017-03-01] MEDS ORDERED: ONDANSETRON 4 MG/2 ML VIAL IVPB PRN (18:14)
[2017-03-01] MEDS ORDERED: ALBUTEROL SO4 0.083% IH SOL 2.5 MG/3 ML VIAL.NEB. NEB PRN (18:14)
[2017-03-01] MEDS ORDERED: morphine CARPU-JECT 2 MG/1 ML DISP.SYRIN IVPUSH PRN (18:14)
--- NOTE | 2017-03-01 18:19 | HP ---
CHIEF COMPLAINT:abdominal pain PCP:none HISTORY OF PRESENT ILLNESS: 52 yo F, asthma,hypothyroidism , and HTN presents with 3 day history of worsening RLQ abdominal pain. She states that three days prior she was out to dinner when she developed RLQ abdominal pain with nausea and vomiting. For past three days pain has worsened and is accompanied by bilous vomiting and dark diarrhea. She describes constant 10/10 RLQ crampy abdominal pain that radiates to her back. Pain worse with movement and palpations. No alleviating factors, tried pepto bismol with no relief. Denies fever, chills, blood in stools or vomitous. Never had this problem in past. Denies CP,GONZALES, SOB, or palpitations. ER course was notable for: (1)CT shows possible collitis. (2)EKG- NSR with no st or t changes. (3)WBC not elevated. Recent Travel:denies PAST MEDICAL HISTORY: asthma,hypothyroidism , and HTN PAST SURGICAL HISTORY: Social History: Smoking: quit 7 yrs ago Alcohol:social Drugs: denies Family History: Allergies morphine Allergy (Severe, Verified 03/01/17 12:31) Hives HOME MEDICATIONS: Home Medications Medication Instructions Recorded Amlodipine Besylate [Norvasc -] 10 mg PO DAILY #30 tablet 03/07/16 Levothyroxine [Synthroid -] 75 mcg PO DAILY 05/05/16 REVIEW OF SYSTEMS CONSTITUTIONAL: (+)loss of appetite Absent: fever, chills, diaphoresis, generalized weakness, malaise, , weight change HEENT: Absent: rhinorrhea, nasal congestion, throat pain, throat swelling, difficulty swallowing, mouth swelling, ear pain, eye pain, visual changes CARDIOVASCULAR: Absent: chest pain, syncope, palpitations, irregular heart rate, lightheadedness , peripheral edema RESPIRATORY: Absent: cough, shortness of breath, dyspnea with exertion, orthopnea, wheezing, stridor, hemoptysis GASTROINTESTINAL:(+)abdominal pain, abdominal distension, nausea, vomiting, diarrhea, Absent: constipation, melena, hematochezia GENITOURINARY: Absent: dysuria, frequency, urgency, hesitancy, hematuria, flank pain, genital pain MUSCULOSKELETAL: Absent: myalgia, arthralgia, joint swelling, back pain, neck pain SKIN: Absent: rash, itching, pallor HEMATOLOGIC/IMMUNOLOGIC: Absent: easy bleeding, easy bruising, lymphadenopathy, frequent infections ENDOCRINE: Absent: unexplained weight gain, unexplained weight loss, heat intolerance, cold intolerance NEUROLOGIC: Absent: headache, focal weakness or paresthesias, dizziness, unsteady gait, seizure, mental status changes, bladder or bowel incontinence PSYCHIATRIC: Absent: anxiety, depression, suicidal or homicidal ideation, hallucinations. PHYSICAL EXAMINATION Vital Signs - 24 hr 03/01/17 12:31 Temperature 98.9 F Pulse Rate 99 H Respiratory 18 Rate Blood Pressure 141/98 O2 Sat by Pulse 100 Oximetry (%) GENERAL: AAO x3 , NAD HEAD: NC/AT EYES:PERRLA ,EOMI, sclera anicteric, conjunctiva clear. No lid lag. EARS, NOSE, THROAT: Moist mucous membranes. NECK: Supple without lymphadenopathy, JVD, or masses. LUNGS: CTAB No wheezes, and no crackles. No accessory muscle use. HEART: RRR, normal S1 and S2 without murmur, rub or gallop. ABDOMEN: RLQ tenderness, normoactive bowel sounds, voluntary guarding, no rebound, no masses. MUSCULOSKELETAL: Normal range of motion at all joints. No bony deformities or tenderness. No CVA tenderness. UPPER EXTREMITIES: 2+ pulses, warm, well-perfused. No cyanosis. No clubbing. No peripheral edema. LOWER EXTREMITIES: 2+ pulses, warm, well-perfused. No calf tenderness. No peripheral edema. NEUROLOGICAL: Cranial nerves II-XII intact. Normal speech.gait not observed. Laboratory Results - last 24 hr 03/01/17 03/01/17 03/01/17 14:48 14:55 15:00 WBC 9.3 RBC 4.22 Hgb 12.4 Hct 38.0 MCV 90.2 MCHC 32.7 RDW 13.4 Plt Count 216 MPV 7.8 Neutrophils % 85.3 H D Lymphocytes % 9.2 D Monocytes % 5.1 Eosinophils % 0.0 D Basophils % 0.4 INR Sodium Potassium Chloride Carbon Dioxide Anion Gap BUN Creatinine Creat Clearance w eGFR Random Glucose Calcium Total Bilirubin AST ALT Alkaline Phosphatase Total Protein Albumin Serum , Qual Urine Color Yellow Urine Appearance Clear Urine pH 6.0 Ur Specific [place] 1.020 Urine Protein 2+ H Urine Glucose (UA) Negative Urine Ketones 1+ H Urine Blood 1+ H Urine Nitrite Negative Urine Bilirubin Negative Urine Urobilinogen Negative Ur Leukocyte Esterase Negative Urine RBC 46 Urine WBC 1 Ur Epithelial Cells Rare Hyaline Casts 1 Urine Mucus Rare Blood Type O NEGATIVE Antibody Screen Negative 03/01/17 03/01/17 03/01/17 15:00 15:00 15:20 WBC RBC Hgb Hct MCV MCHC RDW Plt Count MPV Neutrophils % Lymphocytes % Monocytes % Eosinophils % Basophils % INR 1.02 Sodium 138 Potassium 3.6 Chloride 103 Carbon Dioxide 25 Anion Gap 10 BUN 10 Creatinine 0.9 Creat Clearance w eGFR > 60 Random Glucose 108 H D Calcium 9.1 Total Bilirubin 0.5 AST 20 ALT 22 D Alkaline Phosphatase 76 Total Protein 7.9 D Albumin 3.5 D Serum , Qual Negative Urine Color Urine Appearance Urine pH Ur Specific [place] Urine Protein Urine Glucose (UA) Urine Ketones Urine Blood Urine Nitrite Urine Bilirubin Urine Urobilinogen Ur Leukocyte Esterase Urine RBC Urine WBC Ur Epithelial Cells Hyaline Casts Urine Mucus Blood Type Antibody Screen ASSESSMENT/PLAN: 52 yo F, asthma,hypothyroidism , and HTN presents with 3 day history of worsening RLQ abdominal pain placed on observation for possible colitis. Problem List - Problem (1) Colitis Assessment/Plan: * CT show possible colitis. * Pain management * NPO * IVF NS @ 100ml/hr * IV Ceftriaxone. (2) Asthma Assessment/Plan: * Albuterol PRN (3) Hypertension Assessment/Plan: * Amlodipine 5mg PO daily Code(s): I10 - ESSENTIAL (PRIMARY) HYPERTENSION (4) Hypothyroidism Assessment/Plan: * Continue Levothyroxin Code(s): E03.9 - HYPOTHYROIDISM, UNSPECIFIED (5) Obesity (BMI 30-39.9) Code(s): E66.9 - OBESITY, UNSPECIFIED Visit type - Emergency Visit Emergency Visit: Yes ED Registration Date: 03/03/17 Care time: The patient presented to the Emergency Department on the above date and was hospitalized for further evaluation of their emergent condition. - New Patient This patient is new to me today: Yes Date on this admission: 03/05/17 - Critical Care Critical Care patient: No
--- NOTE | 2017-03-01 18:49 | PN ---
Teaching Attending Note Name of Resident: Tre Gupta ATTENDING PHYSICIAN STATEMENT I saw and evaluated the patient. I reviewed the resident's note and discussed the case with the resident. I agree with the resident's findings and plan as documented. SUBJECTIVE: Patient is c/o having intractable nausea and vomiting and diarrhea that started 3 days ago with worsening nausea and vomiting. OBJECTIVE: Vital Signs Temperature 98.9 F 03/01/17 12:31 Pulse Rate 99 H 03/01/17 12:31 Respiratory Rate 18 03/01/17 12:31 Blood Pressure 141/98 03/01/17 12:31 O2 Sat by Pulse Oximetry (%) 100 03/01/17 12:31 CBCD WBC 9.3 K/mm3 (4.0-10.0) 03/01/17 15:00 RBC 4.22 M/mm3 (3.60-5.2) 03/01/17 15:00 Hgb 12.4 GM/dL (10.7-15.3) 03/01/17 15:00 Hct 38.0 % (32.4-45.2) 03/01/17 15:00 MCV 90.2 fl (80-96) 03/01/17 15:00 MCHC 32.7 g/dl (32.0-36.0) 03/01/17 15:00 RDW 13.4 % (11.6-15.6) 03/01/17 15:00 Plt Count 216 K/MM3 (134-434) 03/01/17 15:00 MPV 7.8 fl (7.5-11.1) 03/01/17 15:00 CMP Sodium 138 mmol/L (136-145) 03/01/17 15:00 Potassium 3.6 mmol/L (3.5-5.1) 03/01/17 15:00 Chloride 103 mmol/L (98-107) 03/01/17 15:00 Carbon Dioxide 25 mmol/L (21-32) 03/01/17 15:00 Anion Gap 10 (8-16) 03/01/17 15:00 BUN 10 mg/dL (7-18) 03/01/17 15:00 Creatinine 0.9 mg/dL (0.55-1.02) 03/01/17 15:00 Creat Clearance w eGFR > 60 (>60) 03/01/17 15:00 Random Glucose 108 mg/dL (74-106) H D 03/01/17 15:00 Calcium 9.1 mg/dL (8.5-10.1) 03/01/17 15:00 Total Bilirubin 0.5 mg/dL (0.2-1.0) 03/01/17 15:00 AST 20 U/L (15-37) 03/01/17 15:00 ALT 22 U/L (12-78) D 03/01/17 15:00 Alkaline Phosphatase 76 U/L (45-117) 03/01/17 15:00 Total Protein 7.9 g/dl (6.4-8.2) D 03/01/17 15:00 Albumin 3.5 g/dl (3.4-5.0) D 03/01/17 15:00 Current Medications Generic Name Dose Route Start Last Admin Trade Name Freq PRN Reason Stop Dose Admin Albuterol Sulfate 1 amp 03/01/17 18:14 Ventolin 0.083% Nebulizer Soln - NEB Q4H PRN SHORT OF BREATH/WHEEZING Amlodipine Besylate 10 mg 03/02/17 10:00 Norvasc - PO DAILY FRANNIE Heparin Sodium (Porcine) 5,000 unit 03/01/17 22:00 Heparin - SQ BID FRANNIE Levothyroxine Sodium 75 mcg 03/02/17 10:00 Synthroid - PO DAILY FRANNIE Morphine Sulfate 2 mg 03/01/17 18:14 Morphine Injection - IVPUSH Q4H PRN PAIN Ondansetron HCl 4 mg 03/01/17 18:14 Zofran Injection IVPB Q6H PRN NAUSEA Home Medications Medication Instructions Recorded Amlodipine Besylate [Norvasc -] 10 mg PO DAILY #30 tablet 03/07/16 Levothyroxine [Synthroid -] 75 mcg PO DAILY 05/05/16 GENERAL: AAO x3 , mild distress HEAD: NC/AT EYES:PERRLA ,EOMI, sclera anicteric, conjunctiva clear. No lid lag. EARS, NOSE, THROAT: Moist mucous membranes. NECK: Supple , no JVD, or masses. LUNGS: CTAB No wheezes, and no crackles. No accessory muscle use. HEART: RRR, normal S1 and S2 without murmur, rub or gallop. ABDOMEN: RLQ tenderness, normoactive bowel sounds, voluntary guarding, no rebound, no masses appreciated MUSCULOSKELETAL: Normal range of motion at all joints. No bony deformities or tenderness. No CVA tenderness. EXTREMITIES: 2+ pulses, warm, well-perfused. No cyanosis. No clubbing. No peripheral edema. NEUROLOGICAL: Cranial nerves II-XII intact. Normal speech .gait not observed. ASSESSMENT AND PLAN: 52 yo F, asthma,hypothyroidism , and HTN presents with 3 day history of worsening RLQ abdominal pain placed on observation for possible colitis. #Acute RLQ pain; CT suggestive of possible Colitis , IV dilaudid for pain , NPO ,IVF NS @ 100ml/hr ; monitor vitals and CBC in am # Intractable nausea and vomiting with diarrhea started 3 days ago ; Acute Gastroenteritis most likely Viral will repeat cbc, cmp # Asthma stable ,albuterol PRN # Hypertension Amlodipine 5mg PO daily # Hypothyroidism Continue Levothyroxine # Morbid Obesity (BMI 30-39.9) weight loss recommended DVT Px: Heparin sq
[2017-03-01] MEDS ORDERED: ENOXAPARIN NA (PORCINE) 40 MG/0.4 ML DISP.SYRIN SQ ONE (19:59)
[2017-03-01] MEDS: ENOXAPARIN NA (PORCINE) 40 MG/0.4 ML DISP.SYRIN SQ SCH (20:20)
[2017-03-01] MEDS ORDERED: HEPARIN NA (PORCINE) 5,000 UNITS/ML 1ML VIAL SQ SCH (22:00)
[2017-03-01] MEDS: SODIUM CHLORIDE 1,000 ML IV SCH (22:30)
[2017-03-02] MEDS ORDERED: HYDROmorphone HCL CARPU-JECT 1 MG/1 ML DISP.SYRIN ONE (00:51)
[2017-03-02] MEDS: HYDROmorphone HCL CARPU-JECT 1 MG/1 ML DISP.SYRIN IVPB PRN ×5 (01:00→20:23)
[2017-03-02] MEDS ORDERED: LORATADINE 10 MG TABLET PO PRN (03:45)
[2017-03-02 04:14] VITALS: BMI 33.2
[2017-03-02 06:18] LABS: URINE APPEARANCE CLEAR; URINE BILIRUBIN NEGATIVE (NEGATIVE); URINE BLOOD NEGATIVE (NEGATIVE); URINE COLOR YELLOW; URINE GLUCOSE (UA) NEGATIVE (NEGATIVE); URINE KETONE TRACE (NEGATIVE); URINE LEUK ESTERASE NEGATIVE (NEGATIVE); URINE NITRITE NEGATIVE (NEGATIVE); URINE UROBILINOGEN NEGATIVE E.U./dl (0.2-1.0)
[2017-03-02 06:32] LABS: URINE PROTEIN 1+ (NEGATIVE)
[2017-03-02 06:35] LABS: URINE MUCUS MODERATE; URINE RBC 1 /hpf (0-3); URINE WBC 2 /hpf (3-5)
[2017-03-02 08:27] LABS: BASOPHIL 0.3 % (0-2.0); MCH 30.5 pg (25.7-33.7); MEAN CELL VOLUME 89.6 fl (80-96); MEAN PLT VOLUME 7.8 fl (7.5-11.1); NEUTROPHILS 74.4 % (42.8-82.8); PLATELET COUNT 152 K/MM3 (134-434); RDW 13.2 % (11.6-15.6); WHITE BLOOD COUNT 5.9 K/mm3 (4.0-10.0)
--- NOTE | 2017-03-02 09:03 | PN ---
Physical Exam: SUBJECTIVE: Patient seen and examined Patient is feeling better today but still having diarrhea nut less and still feeling nauseas. OBJECTIVE: Vital Signs Temperature 98.6 F 03/02/17 05:58 Pulse Rate 84 03/02/17 05:58 Respiratory Rate 18 03/02/17 05:58 Blood Pressure 149/86 03/02/17 05:58 O2 Sat by Pulse Oximetry (%) 97 03/02/17 02:00 GENERAL: The patient is awake, alert, and fully oriented, in no acute distress. HEAD: Normal with no signs of trauma. EYES: PERRL, extraocular movements intact, sclera anicteric, conjunctiva clear. ENT: Ears normal, oropharynx clear without exudates, moist mucous membranes. NECK: Trachea midline, full range of motion, supple. LUNGS: Breath sounds equal, clear to auscultation bilaterally, no wheezes, no crackles, no accessory muscle use. HEART: Regular rate and rhythm, S1, S2 without murmur, rub or gallop. ABDOMEN: Soft, mild diffuse tenderness, nondistended, large abdomen , normoactive bowel sounds, no guarding, no hepatosplenomegaly, no masses. EXTREMITIES: 2+ pulses, warm, well-perfused, no edema. NEUROLOGICAL: Cranial nerves II through XII grossly intact. Normal speech, gait not observed. PSYCH: Normal mood, normal affect. SKIN: Warm, dry, normal turgor, no rashes or lesions noted Laboratory Results - last 24 hr 03/02/17 03/02/17 04:30 07:30 WBC 5.9 D RBC 3.28 L D Hgb 10.0 L D Hct 29.4 L D MCV 89.6 MCHC 34.0 RDW 13.2 Plt Count 152 D MPV 7.8 Neutrophils % 74.4 Lymphocytes % 16.7 D Monocytes % 7.6 Eosinophils % 1.0 D Basophils % 0.3 Urine Color Yellow Urine Appearance Clear Urine pH 5.0 Urine Protein 1+ H Urine Glucose (UA) Negative Urine Ketones Trace H Urine Blood Negative Urine Nitrite Negative Urine Bilirubin Negative Urine Urobilinogen Negative Ur Leukocyte Esterase Negative Urine RBC 1 Urine WBC 2 Ur Epithelial Cells Few Urine Mucus Moderate Active Medications Generic Name Dose Route Start Last Admin Trade Name Freq PRN Reason Stop Dose Admin Albuterol Sulfate 1 amp 03/01/17 18:14 Ventolin 0.083% Nebulizer Soln - NEB Q4H PRN SHORT OF BREATH/WHEEZING Amlodipine Besylate 10 mg 03/02/17 10:00 Norvasc - PO DAILY FRANNIE Enoxaparin Sodium 40 mg 03/01/17 19:30 03/01/17 20:20 Lovenox - SQ 40 mg DAILY FRANNIE Administration Hydromorphone HCl 1 mg 03/01/17 19:01 03/02/17 04:57 Dilaudid Injection - IVPB 1 mg Q4H PRN Administration PAIN Sodium Chloride 1,000 mls @ 125 mls/hr 03/01/17 20:00 03/01/17 22:30 Normal Saline - IV 03/03/17 03:59 125 mls/hr ASDIR FRANNIE Administration Levothyroxine Sodium 75 mcg 03/02/17 10:00 Synthroid - PO DAILY FRANNIE Loratadine 10 mg 03/02/17 03:45 03/02/17 04:57 Claritin - PO 10 mg DAILY PRN Administration COUGH Ondansetron HCl 4 mg 03/01/17 18:14 03/02/17 06:51 Zofran Injection IVPB 4 mg Q6H PRN Administration NAUSEA Home Medications Medication Instructions Recorded Amlodipine Besylate [Norvasc -] 10 mg PO DAILY #30 tablet 03/07/16 Levothyroxine [Synthroid -] 75 mcg PO DAILY 05/05/16 ASSESSMENT/PLAN: 52 yo F, asthma,hypothyroidism , and HTN presents with 3 day history of worsening RLQ abdominal pain placed on observation for possible colitis. # Acute viral gastroenteritis continue IVF, stool culture pending , zofran for nausea and vomiting #Acute mild RLQ pain no rebound, no guarding ; CT suggestive of possible early Colitis , IV dilaudid for pain ,advance diet to full liquid diet ,IVF NS @ 100ml/hr ; monitor vitals and CBC in am # Asthma Albuterol PRN # Hypertension Amlodipine 5mg PO daily # Hypothyroidism Continue Levothyroxine # Morbid Obesity (BMI 30-39.9) weight loss recommended DVT Px; Lovenox Visit type - Emergency Visit Emergency Visit: Yes ED Registration Date: 03/01/17 Care time: The patient presented to the Emergency Department on the above date and was hospitalized for further evaluation of their emergent condition. - New Patient This patient is new to me today: No - Critical Care Critical Care patient: No
[2017-03-02 09:41] LABS: INR 1.11 (0.82-1.09); PROTHROMBIN TIME (PATIENT) 12.2 SEC (9.98-11.88)
[2017-03-02 09:43] LABS: ACTIVATED PTT 23.2 SECONDS (26.9-34.4)
[2017-03-02 10:15] LABS: ALBUMIN 2.7 g/dl (3.4-5.0); ALK PHOS 56 U/L (45-117); ANION GAP 10 (8-16); BILIRUBIN,TOTAL 0.4 mg/dL (0.2-1.0); CO2 21 mmol/L (21-32); CREATININE 0.7 mg/dL (0.55-1.02); GLUCOSE,RANDOM 89 mg/dL (74-106); MAGNESIUM 1.9 mg/dL (1.8-2.4); PHOSPHOROUS 2.7 mg/dL (2.5-4.9); SGOT/AST 19 U/L (15-37); SGPT/ALT 18 U/L (12-78)
[2017-03-02] MEDS: ENOXAPARIN NA (PORCINE) 40 MG/0.4 ML DISP.SYRIN SQ SCH (11:32)
[2017-03-02] MEDS: amLODIPine BESYLATE 10 MG TABLET (FP) PO SCH (11:32)
[2017-03-02] MEDS: LEVOTHYROXINE NA 75 MCG TABLET (FP) PO SCH (11:32)
[2017-03-02] MEDS: SODIUM CHLORIDE 1,000 ML IV SCH ×2 (12:55→20:24)
--- NOTE | 2017-03-02 14:08 | CON.GI ---
Consult Consult Specialty:: GI Referred by:: Dr Eden Reason for Consultation:: abdominal pain - History of Present Illness Chief Complaint: abdominal pain History of Present Illness: 52 F with h/o hypothyroid and HTN admitted with 3 days of RLQ pain which has been escalating. She has low-grade fever and vomiting. She had diarrhea this am. At this time she c/o r lower back pain. CT done on admission shows areas of colonic thickening in the ascending colon and R transverse colon suggesting colitis. - History Source History Provided By: Patient Limitations to Obtaining History: No Limitations - Past Medical History ...LMP: 12/09/16 - Alcohol/Substance Use Hx Alcohol Use: No - Smoking History Smoking history: Never smoked Have you smoked in the past 12 months: No Aproximately how many cigarettes per day: 0 If you are a former smoker, when did you quit?: 8 months ago Home Medications - Allergies Allergies/Adverse Reactions: Allergies Allergy/AdvReac Type Severity Reaction Status Date / Time morphine Allergy Severe Hives Verified 03/01/17 12:31 - Home Medications Home Medications: Ambulatory Orders Amlodipine Besylate [Norvasc -] 10 mg PO DAILY #30 tablet 03/07/16 Levothyroxine [Synthroid -] 75 mcg PO DAILY 05/05/16 Physical Exam-GI Vital Signs: Vital Signs Temperature 99.1 F 03/02/17 09:00 Pulse Rate 80 03/02/17 09:00 Respiratory Rate 18 03/02/17 09:00 Blood Pressure 135/83 03/02/17 09:00 O2 Sat by Pulse Oximetry (%) 97 03/02/17 02:00 Constitutional: Yes: Well Nourished, Anxious, Moderate Distress HENT: Yes: Normocephalic Neck: Yes: Supple Cardiovascular: Yes: Regular Rate and Rhythm Respiratory: Yes: CTA Bilaterally Gastrointestinal Inspection: Yes: WNL ...Auscultate: Yes: Normoactive Bowel Sounds ...Palpate: Yes: Soft, Tenderness (RLQ) Labs: CBC, BMP 03/02/17 07:30 03/02/17 07:30 INR, PTT INR 1.11 (0.82-1.09) 03/02/17 07:30 Imaging - Results Cat Scan: Report Reviewed (colitis as above) Assessment/Plan 52 F with above findings, suggestive of colitis. Urine with 1+ blood on admission Will start AbRx
[2017-03-02] MEDS: LEVOFLOXACIN 500 MG IVPB 100 ML IVPB SCH (15:14)
[2017-03-02] MEDS: METRONIDAZOLE 500 MG PREMIXED 100 ML IVPB SCH ×2 (15:14→20:24)
[2017-03-03] MEDS: HYDROmorphone HCL CARPU-JECT 1 MG/1 ML DISP.SYRIN IVPB PRN ×5 (00:47→21:49)
[2017-03-03] MEDS: METRONIDAZOLE 500 MG PREMIXED 100 ML IVPB SCH ×4 (02:11→21:48)
[2017-03-03] MEDS: amLODIPine BESYLATE 10 MG TABLET (FP) PO SCH (09:59)
[2017-03-03] MEDS: ENOXAPARIN NA (PORCINE) 40 MG/0.4 ML DISP.SYRIN SQ SCH (09:59)
[2017-03-03] MEDS: LEVOTHYROXINE NA 75 MCG TABLET (FP) PO SCH (10:01)
--- NOTE | 2017-03-03 11:51 | PN ---
Progress Note (short form) - Note Progress Note: Patient is c/o having severe right lower flank/back pain. Vital Signs Temperature 98.6 F 03/03/17 06:00 Pulse Rate 83 03/03/17 06:00 Respiratory Rate 18 03/03/17 06:00 Blood Pressure 132/87 03/03/17 06:00 O2 Sat by Pulse Oximetry (%) 99 03/03/17 06:00 GENERAL: The patient is awake, alert, and fully oriented, in no acute distress. HEAD: Normal with no signs of trauma. EYES: PERRL, extraocular movements intact, sclera anicteric, conjunctiva clear. ENT: Ears normal, oropharynx clear without exudates, moist mucous membranes. NECK: Trachea midline, full range of motion, supple. LUNGS: Breath sounds equal, clear to auscultation bilaterally, no wheezes, no crackles, no accessory muscle use. HEART: Regular rate and rhythm, S1, S2 without murmur, rub or gallop. ABDOMEN: Soft, severe CVA tenderness of the right side ,ND, normoactive bowel sounds, no guarding, no hepatosplenomegaly, no masses appreciated. EXTREMITIES: 2+ pulses, warm, well-perfused, no edema. NEUROLOGICAL: Cranial nerves II through XII grossly intact. Normal speech, gait not observed. PSYCH: Normal mood, normal affect. SKIN: Warm, dry, normal turgor, no rashes or lesions noted CBCD WBC 5.9 K/mm3 (4.0-10.0) D 03/02/17 07:30 RBC 3.28 M/mm3 (3.60-5.2) L D 03/02/17 07:30 Hgb 10.0 GM/dL (10.7-15.3) L D 03/02/17 07:30 Hct 29.4 % (32.4-45.2) L D 03/02/17 07:30 MCV 89.6 fl (80-96) 03/02/17 07:30 MCHC 34.0 g/dl (32.0-36.0) 03/02/17 07:30 RDW 13.2 % (11.6-15.6) 03/02/17 07:30 Plt Count 152 K/MM3 (134-434) D 03/02/17 07:30 MPV 7.8 fl (7.5-11.1) 03/02/17 07:30 CMP Sodium 139 mmol/L (136-145) 03/02/17 07:30 Potassium 3.5 mmol/L (3.5-5.1) 03/02/17 07:30 Chloride 108 mmol/L (98-107) H 03/02/17 07:30 Carbon Dioxide 21 mmol/L (21-32) 03/02/17 07:30 Anion Gap 10 (8-16) 03/02/17 07:30 BUN 10 mg/dL (7-18) 03/02/17 07:30 Creatinine 0.7 mg/dL (0.55-1.02) D 03/02/17 07:30 Creat Clearance w eGFR > 60 (>60) 03/02/17 07:30 Random Glucose 89 mg/dL (74-106) 03/02/17 07:30 Calcium 8.0 mg/dL (8.5-10.1) L 03/02/17 07:30 Total Bilirubin 0.4 mg/dL (0.2-1.0) 03/02/17 07:30 AST 19 U/L (15-37) 03/02/17 07:30 ALT 18 U/L (12-78) 03/02/17 07:30 Alkaline Phosphatase 56 U/L (45-117) D 03/02/17 07:30 Total Protein 6.0 g/dl (6.4-8.2) L D 03/02/17 07:30 Albumin 2.7 g/dl (3.4-5.0) L D 03/02/17 07:30 Current Medications Generic Name Dose Route Start Last Admin Trade Name Freq PRN Reason Stop Dose Admin Albuterol Sulfate 1 amp 03/01/17 18:14 Ventolin 0.083% Nebulizer Soln - NEB Q4H PRN SHORT OF BREATH/WHEEZING Amlodipine Besylate 10 mg 03/02/17 10:00 03/03/17 09:59 Norvasc - PO 10 mg DAILY FRANNIE Administration Enoxaparin Sodium 40 mg 03/01/17 19:30 03/03/17 09:59 Lovenox - SQ 40 mg DAILY FRANNIE Administration Hydromorphone HCl 1 mg 03/01/17 19:01 03/03/17 11:36 Dilaudid Injection - IVPB 1 mg Q4H PRN Administration PAIN Levofloxacin 100 mls @ 100 mls/hr 03/02/17 14:30 03/02/17 15:14 Levaquin 500 Mg Premixed Ivpb - IVPB 100 mls/hr DAILY FRANNIE Administration Metronidazole 100 mls @ 100 mls/hr 03/02/17 15:00 03/03/17 09:58 Flagyl 500mg Premixed Ivpb - IVPB 100 mls/hr Q6H-IV FRANNIE Administration Levothyroxine Sodium 75 mcg 03/02/17 10:00 03/03/17 10:01 Synthroid - PO 75 mcg DAILY FRANNIE Administration Loratadine 10 mg 03/02/17 03:45 03/02/17 04:57 Claritin - PO 10 mg DAILY PRN Administration COUGH Home Medications Medication Instructions Recorded Amlodipine Besylate [Norvasc -] 10 mg PO DAILY #30 tablet 03/07/16 Levothyroxine [Synthroid -] 75 mcg PO DAILY 05/05/16 CT suggestive of possible early Colitis A/P: 52 yo F, asthma,hypothyroidism , and HTN presents with 3 day history of worsening RLQ abdominal pain placed on observation for possible colitis. # Acute Early colitis on IV antibiotic Levaquin /flagyl Gi on the case # Acute CVA tenderness right side ;US kidney and pelvis r/o pyloneph continue IV antibiotic # Hx of panick disorder on Zoloft continue # Acute viral gastroenteritis improved no further diarrhea continue IVF, stool culture is still pending # Asthma Albuterol PRN # Hypertension Amlodipine 5mg PO daily # Hypothyroidism Continue Levothyroxine # Morbid Obesity (BMI 30-39.9) weight loss recommended DVT Px; Lovenox Renal/pelvic US ordered Visit type - Emergency Visit Emergency Visit: Yes ED Registration Date: 03/03/17 Care time: The patient presented to the Emergency Department on the above date and was hospitalized for further evaluation of their emergent condition. - New Patient This patient is new to me today: No - Critical Care Critical Care patient: No
[2017-03-03] MEDS: LEVOFLOXACIN 500 MG IVPB 100 ML IVPB SCH (12:20)
--- NOTE | 2017-03-03 12:45 | PN ---
GI Progress Note Subjective: Patient states feeling much better since antibiotics started. She has increased R back/flank pain however. - Objective Vital Signs: Vital Signs Temperature 98.5 F 03/03/17 10:00 Pulse Rate 79 03/03/17 10:00 Respiratory Rate 20 03/03/17 10:00 Blood Pressure 145/84 03/03/17 10:00 O2 Sat by Pulse Oximetry (%) 99 03/03/17 06:00 Constitutional: Well Nourished, Calm HENT: Yes: WNL Neck: Yes: WNL Cardiovascular: Yes: Regular Rate and Rhythm Respiratory: Yes: CTA Bilaterally Gastrointestinal Inspection: Yes: WNL ...Auscultate: Yes: Normoactive Bowel Sounds ...Palpate: Yes: Soft, Tenderness (mild RLQ) ...Percussion: Yes: Dullness Genitourinary: Yes: CVA Tenderness - Right Labs: INR, PTT INR 1.11 (0.82-1.09) 03/02/17 07:30 CBC, BMP 03/02/17 07:30 03/02/17 07:30 Assessment/Plan R CVA tenderness and flank pain R/O evolving Pyelo Sent for dedicated renal U/S Continue IVAB
[2017-03-03] MEDS: SERTRALINE HCL 25 MG TABLET (FP) PO SCH (14:03)
[2017-03-03] MEDS ORDERED: ZOLPIDEM TARTRATE 5 MG TABLET PO ONE (23:01)
--- NOTE | 2017-03-03 23:07 | CON.OBG ---
Consult Consult Specialty:: obgyn Reason for Consultation:: ovarian cyst - History of Present Illness Chief Complaint: pain History of Present Illness: 52 y/o admitted with pain and colitis. Has a 3.7 cm ovairn cyst. When questioned , has a h/o ovarian cysts. 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: Alzheimer's, CVA, Dementia, Migraine, Multiple Sclerosis, Peripheral Neuropathy, Parkinson's, Seizure, Syncope, TIA, Vertigo, Other Cardio/Vascular: No: AFIB, Aneurysm, Aortic Insufficiency, Aortic Stenosis, CAD , CHF, Deep Vein Thrombosis, HTN, Hyperlipdemia, DE, Mitral Insufficiency, Mitral Stenosis, Murmur, Pulmonary Hypertension, Other Gastrointestinal: No: Ascites, Cancer, Constipation, Crohn's Disease, Diverticulitis, Diverticulosis, Esophageal Varices, Gastritis, GERD, GI Bleed, Hemorrhoids, Hiatal Hernia, Inflamatory Bowel Disease, Irritable Bowel Disease, Pancreatitis, Peptic Ulcer Disease, Ulcerative Colitis, Other Hepatobiliary: No: Cirrhosis, Cholelithiasis, Cholecystitis, Choledocholithiasis , Hepatitis A, Hepatitis B, Hepatitis C, Other Renal/: No: Renal Failure, Renal Inusuff, BPH, Cancer, Hematuria, Hemodialysis , Neurogenic Bladder, Renal Calculi, UTI, Other Reproductive: No: Ectopic , Endometriosis, Fibroids, PID, Polycystic Ovary Syndrome, Postmenopausal, Other ...LMP: 12/09/16 Heme/Onc: No: Anemia, B12 Deficiency, Bleeding Disorder, Cancer, Current Chemotherapy, Current Radiation Therapy, Hemochromatosis, Hypercoaguable State, Myeloproliferative Synd, Sickle Cell Disease, Sickle Cell Trait, Thrombocytopenia, Other Infectious Disease: No: AIDS, C-Diff, Herpes Zoster, HIV, MRSA, STD's, Tuberculosis, VREF, Other Psych: No: Addictions, Anxiety, Bipolar, Depression, Panic, Psychosis, Schizophrenia, Other Musculoskeletal: No: Bursitis, Chronic low back pain, Hemiparesis, Hemiplegia, Osteoarthritis, Paraplegia, Other ENT: No: Allergic Rhinitis, Sinusitis, Other Endocrine: No: Custer's Disease, Caroline's Disease, Diabetes Insipidus, Diabetes Mellitus, Hyperparathyroidism, Hyperthyroidism, Hypothyroidism, Osteopenia, SIADH, Other Dermatology: No: Basal Cell, Cellulitis, Eczema, Melanoma, Psoriasis, Squamous Cell, Other - Alcohol/Substance Use Hx Alcohol Use: No - Smoking History Smoking history: Never smoked Have you smoked in the past 12 months: No Aproximately how many cigarettes per day: 0 If you are a former smoker, when did you quit?: 8 months ago Home Medications - Allergies Allergies/Adverse Reactions: Allergies Allergy/AdvReac Type Severity Reaction Status Date / Time morphine Allergy Severe Hives Verified 03/01/17 12:31 - Home Medications Home Medications: Ambulatory Orders Amlodipine Besylate [Norvasc -] 10 mg PO DAILY #30 tablet 03/07/16 Levothyroxine [Synthroid -] 75 mcg PO DAILY 05/05/16 Review of Systems - Review of Systems Constitutional: reports: No Symptoms Eyes: reports: No Symptoms HENT: reports: No Symptoms Neck: reports: No Symptoms Cardiovascular: reports: No Symptoms Gastrointestinal: reports: No Symptoms Genitourinary: reports: No Symptoms Breasts: reports: No Symptoms Reported Integumentary: reports: No Symptoms Neurological: reports: No Symptoms Endocrine: reports: No Symptoms Hematology/Lymphatic: reports: No Symptoms Psychiatric: reports: No Symptoms Physical Exam-WIND [employer] MECH[employer]IC Vital Signs: Vital Signs Temperature 98.3 F 03/03/17 18:00 Pulse Rate 77 03/03/17 18:00 Respiratory Rate 20 03/03/17 18:00 Blood Pressure 140/86 03/03/17 18:00 O2 Sat by Pulse Oximetry (%) 97 03/03/17 14:00 Constitutional: Yes: Well Nourished Eyes: Yes: WNL HENT: Yes: WNL Neck: Yes: WNL Cardiovascular: Yes: WNL Respiratory: Yes: WNL Gastrointestinal: Yes: WNL ...Rectal Exam: Yes: WNL Renal/: Yes: WNL External Genitalia: Yes: Normal Vaginal Exam: Yes: Normal Cervix: Yes: Normal Assessment/Plan as above f/u cyst in 2 -3 cycles
[2017-03-04] MEDS: METRONIDAZOLE 500 MG PREMIXED 100 ML IVPB SCH ×4 (03:07→21:39)
[2017-03-04] MEDS: LEVOTHYROXINE NA 75 MCG TABLET (FP) PO SCH (08:07)
[2017-03-04] MEDS: HYDROmorphone HCL CARPU-JECT 1 MG/1 ML DISP.SYRIN IVPB PRN ×3 (08:57→22:26)
[2017-03-04] MEDS: amLODIPine BESYLATE 10 MG TABLET (FP) PO SCH (09:09)
[2017-03-04] MEDS: SERTRALINE HCL 25 MG TABLET (FP) PO SCH (09:09)
[2017-03-04] MEDS: ENOXAPARIN NA (PORCINE) 40 MG/0.4 ML DISP.SYRIN SQ SCH (09:10)
--- NOTE | 2017-03-04 10:31 | PN ---
Progress Note (short form) - Note Progress Note: Patient continues to have Right CVA tenderness. Feeling dizzy at this time. Temperature 98.1 F 03/04/17 06:00 Pulse Rate 71 03/04/17 06:00 Respiratory Rate 16 03/04/17 06:00 Blood Pressure 137/92 03/04/17 06:00 O2 Sat by Pulse Oximetry (%) 98 03/03/17 22:00 GENERAL: The patient is awake, alert, and fully oriented, in no acute distress. HEAD: Normal with no signs of trauma. EYES: PERRL, extraocular movements intact, sclera anicteric, conjunctiva clear. ENT: Ears normal, oropharynx clear without exudates, moist mucous membranes. NECK: Trachea midline, full range of motion, supple. LUNGS: Breath sounds equal, clear to auscultation bilaterally, no wheezes, no crackles, no accessory muscle use. HEART: Regular rate and rhythm, S1, S2 without murmur, rub or gallop. ABDOMEN: Soft, severe CVA tenderness of the right side ,ND, normoactive bowel sounds, no guarding, no hepatosplenomegaly, no masses appreciated. EXTREMITIES: 2+ pulses, warm, well-perfused, no edema. NEUROLOGICAL: Cranial nerves II through XII grossly intact. Normal speech, gait is unsteady. PSYCH: Normal mood, normal affect. SKIN: Warm, dry, normal turgor, no rashes or lesions noted CBCD WBC 5.9 K/mm3 (4.0-10.0) D 03/02/17 07:30 RBC 3.28 M/mm3 (3.60-5.2) L D 03/02/17 07:30 Hgb 10.0 GM/dL (10.7-15.3) L D 03/02/17 07:30 Hct 29.4 % (32.4-45.2) L D 03/02/17 07:30 MCV 89.6 fl (80-96) 03/02/17 07:30 MCHC 34.0 g/dl (32.0-36.0) 03/02/17 07:30 RDW 13.2 % (11.6-15.6) 03/02/17 07:30 Plt Count 152 K/MM3 (134-434) D 03/02/17 07:30 MPV 7.8 fl (7.5-11.1) 03/02/17 07:30 CMP Sodium 139 mmol/L (136-145) 03/02/17 07:30 Potassium 3.5 mmol/L (3.5-5.1) 03/02/17 07:30 Chloride 108 mmol/L (98-107) H 03/02/17 07:30 Carbon Dioxide 21 mmol/L (21-32) 03/02/17 07:30 Anion Gap 10 (8-16) 03/02/17 07:30 BUN 10 mg/dL (7-18) 03/02/17 07:30 Creatinine 0.7 mg/dL (0.55-1.02) D 03/02/17 07:30 Creat Clearance w eGFR > 60 (>60) 03/02/17 07:30 Random Glucose 89 mg/dL (74-106) 03/02/17 07:30 Calcium 8.0 mg/dL (8.5-10.1) L 03/02/17 07:30 Total Bilirubin 0.4 mg/dL (0.2-1.0) 03/02/17 07:30 AST 19 U/L (15-37) 03/02/17 07:30 ALT 18 U/L (12-78) 03/02/17 07:30 Alkaline Phosphatase 56 U/L (45-117) D 03/02/17 07:30 Total Protein 6.0 g/dl (6.4-8.2) L D 03/02/17 07:30 Albumin 2.7 g/dl (3.4-5.0) L D 03/02/17 07:30 Current Medications Generic Name Dose Route Start Last Admin Trade Name Freq PRN Reason Stop Dose Admin Albuterol Sulfate 1 amp 03/01/17 18:14 03/03/17 21:50 Ventolin 0.083% Nebulizer Soln - NEB 1 amp Q4H PRN Administration SHORT OF BREATH/WHEEZING Amlodipine Besylate 10 mg 03/02/17 10:00 03/04/17 09:09 Norvasc - PO 10 mg DAILY FRANNIE Administration Enoxaparin Sodium 40 mg 03/01/17 19:30 03/04/17 09:10 Lovenox - SQ 40 mg DAILY FRANNIE Administration Hydromorphone HCl 1 mg 03/01/17 19:01 03/04/17 08:57 Dilaudid Injection - IVPB 1 mg Q4H PRN Administration PAIN Levofloxacin 100 mls @ 100 mls/hr 03/02/17 14:30 03/03/17 12:20 Levaquin 500 Mg Premixed Ivpb - IVPB 100 mls/hr DAILY FRANNIE Administration Metronidazole 100 mls @ 100 mls/hr 03/02/17 15:00 03/04/17 09:39 Flagyl 500mg Premixed Ivpb - IVPB 100 mls/hr Q6H-IV FRANNIE Administration Levothyroxine Sodium 75 mcg 03/04/17 08:00 03/04/17 08:07 Synthroid - PO 75 mcg AM FRANNIE Administration Loratadine 10 mg 03/02/17 03:45 03/02/17 04:57 Claritin - PO 10 mg DAILY PRN Administration COUGH Sertraline HCl 25 mg 03/03/17 12:30 03/04/17 09:09 Zoloft - PO 25 mg DAILY FRANNIE Administration Home Medications Medication Instructions Recorded Amlodipine Besylate [Norvasc -] 10 mg PO DAILY #30 tablet 03/07/16 Levothyroxine [Synthroid -] 75 mcg PO DAILY 05/05/16 CT suggestive of possible early Colitis US of [place] and bladder: 3.7cm left ovarian cyst slightly thickened internal septation A/P: 52 yo F, asthma,hypothyroidism , and HTN presents with 3 day history of worsening RLQ abdominal pain placed on observation for possible colitis. # Acute Early colitis on IV antibiotic Levaquin /flagyl Gi on the case # Left ovarian cyst 3.7cm with slightly thickened internla septation. OBGyn consult, ordered CA-125, CEA level and Alpha protein. # Acute viral gastroenteritis improved no further diarrhea, only formed stool, continue IVF, stool culture is still pending # Acute CVA tenderness right side ;US kidney and pelvis , no pyloneph continue IV antibiotic # Hx of panick disorder on Zoloft continue # Asthma Albuterol PRN # Hypertension Amlodipine 5mg PO daily # Hypothyroidism Continue Levothyroxine # Morbid Obesity (BMI 30-39.9) weight loss recommended DVT Px; Lovenox Visit type - Emergency Visit Emergency Visit: Yes ED Registration Date: 03/03/17 Care time: The patient presented to the Emergency Department on the above date and was hospitalized for further evaluation of their emergent condition. - New Patient This patient is new to me today: No - Critical Care Critical Care patient: No
[2017-03-04] MEDS: LEVOFLOXACIN 500 MG IVPB 100 ML IVPB SCH (10:42)
[2017-03-04] MEDS ORDERED: PNEUMOC 13-VAL CONJ-DIP CRM/PF 0.5 ML DISP.SYRIN IM ONE (11:22)
[2017-03-04] MEDS ORDERED: PNEUMOCOCCAL 23 VACCINE 0.5 ML VIAL IM ONE (12:00)
--- NOTE | 2017-03-04 13:34 | PN ---
GI Progress Note Subjective: Patient appears comfortable. Still with nausea and R flank/back pain Had episode of dizziness earlier while in the shower. - Objective Vital Signs: Vital Signs Temperature 98.2 F 03/04/17 12:52 Pulse Rate 76 03/04/17 12:52 Respiratory Rate 20 03/04/17 12:52 Blood Pressure 148/98 03/04/17 12:52 O2 Sat by Pulse Oximetry (%) 99 03/04/17 12:52 Constitutional: Well Nourished, Calm Neck: Yes: Supple Cardiovascular: Yes: Regular Rate and Rhythm Respiratory: Yes: CTA Bilaterally Gastrointestinal Inspection: Yes: WNL ...Auscultate: Yes: Normoactive Bowel Sounds ...Palpate: Yes: Soft, Tenderness (RLQ) ...Percussion: Yes: Dullness Labs: INR, PTT INR 1.11 (0.82-1.09) 03/02/17 07:30 CBC, BMP 03/02/17 07:30 03/02/17 07:30 Hepatic Panel Total Bilirubin 0.4 mg/dL (0.2-1.0) 03/02/17 07:30 AST 19 U/L (15-37) 03/02/17 07:30 ALT 18 U/L (12-78) 03/02/17 07:30 Alkaline Phosphatase 56 U/L (45-117) D 03/02/17 07:30 Albumin 2.7 g/dl (3.4-5.0) L D 03/02/17 07:30 - ....Imaging Ultrasound: Report Reviewed (Surreptitious finding of septated L ovarian cyst. Otherwise normal) Assessment/Plan Patient still with symptoms despite no pathology on radiology and blood testing. Patient now tells me she was formerly a heavy drinker, drinking a quart of vodka daily for 4-[address] shows normal liver morphology and LFT's are normal Will check AFP and fibrosure. Unlikely significant underlying liver disease.
[2017-03-04] MEDS ORDERED: ZOLPIDEM TARTRATE 5 MG TABLET PO PRN (19:42)
[2017-03-05] MEDS: METRONIDAZOLE 500 MG PREMIXED 100 ML IVPB SCH ×3 (03:12→14:35)
[2017-03-05] MEDS: LEVOTHYROXINE NA 75 MCG TABLET (FP) PO SCH (06:43)
[2017-03-05 08:10] LABS: BASOPHIL 0.4 % (0-2.0); EOSINOPHIL 3.8 % (0-4.5); MCH 30.1 pg (25.7-33.7); MCHC 34.1 g/dl (32.0-36.0); MEAN CELL VOLUME 88.5 fl (80-96); MEAN PLT VOLUME 7.8 fl (7.5-11.1); NEUTROPHILS 59.1 % (42.8-82.8); PLATELET COUNT 211 K/MM3 (134-434); RDW 13.3 % (11.6-15.6); WHITE BLOOD COUNT 5.9 K/mm3 (4.0-10.0)
[2017-03-05 08:44] LABS: ALBUMIN 2.7 g/dl (3.4-5.0); ANION GAP 10 (8-16); BILIRUBIN,TOTAL 0.3 mg/dL (0.2-1.0); CALCIUM 8.6 mg/dL (8.5-10.1); CO2 23 mmol/L (21-32); COCKROFT - GAULT 146.6335; CREATININE 0.6 mg/dL (0.55-1.02); GLUCOSE,RANDOM 98 mg/dL (74-106); MAGNESIUM 1.9 mg/dL (1.8-2.4); PHOSPHOROUS 2.7 mg/dL (2.5-4.9); SGOT/AST 40 U/L (15-37); SGPT/ALT 31 U/L (12-78); TOT PROT 6.4 g/dl (6.4-8.2)
[2017-03-05 08:45] LABS: ALK PHOS 64 U/L (45-117)
[2017-03-05] MEDS: SERTRALINE HCL 25 MG TABLET (FP) PO SCH (10:43)
[2017-03-05] MEDS: amLODIPine BESYLATE 10 MG TABLET (FP) PO SCH (10:43)
[2017-03-05] MEDS: ENOXAPARIN NA (PORCINE) 40 MG/0.4 ML DISP.SYRIN SQ SCH (10:43)
[2017-03-05] MEDS: LEVOFLOXACIN 500 MG IVPB 100 ML IVPB SCH (11:29)
[2017-03-05] MEDS: HYDROmorphone HCL CARPU-JECT 1 MG/1 ML DISP.SYRIN IVPB PRN (13:47)
[2017-03-05] MEDS ORDERED: diphenhydrAMINE HCL 25 MG CAPSULE (FP) PO ONE ×2 (14:00→17:15)
--- NOTE | 2017-03-05 16:03 | DS ---
Physical Exam: SUBJECTIVE: Patient seen and examined at bedside. No overnight events. No new complaints. Pain significantly improved. Deneis CP,GONZALES, SOB, abd.pain, n/v. OBJECTIVE: Vital Signs Period Temp Pulse Resp BP Sys/Sigala Pulse Ox Last 24 Hr 97.9 F-98.6 F 63-68 18-18 129-144/84-92 96-100 PHYSICAL EXAM GENERAL: AAO x3 , NAD HEAD: NC/AT EYES:PERRLA ,EOMI, sclera anicteric, conjunctiva clear. No lid lag. EARS, NOSE, THROAT: Moist mucous membranes. NECK: Supple without lymphadenopathy, JVD, or masses. LUNGS: CTAB No wheezes, and no crackles. No accessory muscle use. HEART: RRR, normal S1 and S2 without murmur, rub or gallop. ABDOMEN: soft, obsese, nontender,nondistended, normoactive bowel sounds, no guarding, no rebound, no masses. MUSCULOSKELETAL: Normal range of motion at all joints. No bony deformities or tenderness. No CVA tenderness. UPPER EXTREMITIES: 2+ pulses, warm, well-perfused. No cyanosis. No clubbing. No peripheral edema. LOWER EXTREMITIES: 2+ pulses, warm, well-perfused. No calf tenderness. No peripheral edema. NEUROLOGICAL: Cranial nerves II-XII intact. Normal speech.gait not observed. LABS Laboratory Results - last 24 hr 03/05/17 03/05/17 07:00 07:00 WBC 5.9 RBC 3.62 Hgb 10.9 Hct 32.1 L MCV 88.5 MCHC 34.1 RDW 13.3 Plt Count 211 D MPV 7.8 Neutrophils % 59.1 D Lymphocytes % 26.6 D Monocytes % 10.1 Eosinophils % 3.8 D Basophils % 0.4 Sodium 141 Potassium 3.9 Chloride 108 H Carbon Dioxide 23 Anion Gap 10 BUN 10 Creatinine 0.6 Creat Clearance w eGFR > 60 Random Glucose 98 Calcium 8.6 Phosphorus 2.7 Magnesium 1.9 Total Bilirubin 0.3 D AST 40 H D ALT 31 D Alkaline Phosphatase 64 Total Protein 6.4 Albumin 2.7 L IMAGING: * CT/ABDOMEN PELVIS CT WITH CONTR HISTORY PROVIDED: Right lower quadrant pain. Sequential axial images were obtained from the domes of the diaphragms through the symphysis pubis following the administration of intravenous contrast material. There are atelectatic changes at both lung bases, most marked on within the left lower lobe posteriorly. A trace amount of left pleural fluid is also noted. The liver, spleen, pancreas, adrenal glands and kidneys demonstrate no significant abnormalities. There is no evidence of intra-abdominal or retroperitoneal lymphadenopathy or fluid collections. There is no evidence of pneumoperitoneum, bowel obstruction or intra-abdominal abscess. The appendix is normal in caliber with no CT evidence of acute appendicitis. There is mild irregularity of the right and transverse colon and the possibility of right- sided colitis cannot be excluded. This finding is difficult to confirm without oral contrast material. Clinical correlation and possibly follow-up colonoscopy is recommended. No abnormalities of the left colon are identified. There is no evidence of diverticulitis. Examination of the pelvis demonstrates no evidence of pelvic masses, fluid collections or lymphadenopathy. The uterus is somewhat prominent. There is no evidence of acute bony abnormalities. IMPRESSION: 1. Questionable irregularity of the right and transverse colon. Colitis cannot be excluded. 2. No evidence of appendicitis or acute pathology within the abdomen or pelvis. Please see above discussion. Reported By: Tyler Means MD 1700 * US/KIDNEY / RENAL US [id number] US/PELVIC / BLADDER US Renal ultrasound Urinary bladder ultrasound Clinical information: evaluate for hydronephrosis, bladder mass There is no hydronephrosis. The kidneys appear unremarkable in position, cortical thickness, echogenicity and size. Each kidney measures approximately 11.4 cm in length. There is no perirenal fluid collection. Evaluation of the urinary bladder demonstrates no gross mass lesion or calculus. Additional evaluation utilizing cystoscopy may be performed. No post void residual urinary volume is seen. There is no discrete uterine pathology. Endometrial thickness appears unremarkable measuring 0.3 cm. A 3.7 cm left ovarian cyst is noted containing a slightly thickened internal septation. There is no obvious associated soft tissue nodularity. The right ovary appears unremarkable. No free intraperitoneal fluid is seen. IMPRESSION: No hydronephrosis is identified involving either kidney. The kidneys demonstrate no definite sonographic pathology. No gross urinary bladder mass lesion is noted. A 3.7 cm left ovarian cyst is seen containing a slightly thickened internal septation. Correlation with 6 week follow-up sonography is suggested to evaluate for at least partial resolution. Reported By: Jacob Harvey MD 1622 HOSPITAL COURSE: 52 yo F, asthma,hypothyroidism , and HTN presents with 3 day history of worsening RLQ abdominal pain found to have acute colitis seen on CT abdomen. Patient was kept NPO and given Ceftriaxone and pain control with dilaudid in ED. Patient was seen by Dr. Fernandez (GI) and was started on IV Levaquin and Flagyl and received 3 day course in house and will be sent with oral to complete 7 day course. Tolerated advanced diet and patient pain was significantly improved will need follow up in one week with Dr. Fernandez. Also on US imaging a left sided septated ovarial cyst was seen and Dr. Brooks was consulted . Cyst had some concerning features and tumor makers were sent and results pending. Given a referral to follow up with Dr. Brooks in one week. Hypertension mangaged with home meds, amlodipine. For her asthma was given albuterol PRN for SOB. Levothyroxine was continue at home dose. Patient is stable at time of discharge and instructed to complete her antibiotics and follow up with MD. Date of Admission:03/03/17 Date of Discharge: 03/05/17 Minutes to complete discharge: 42 <Tre Gupta - Last Filed: 03/05/17 15:47> Physical Exam: SUBJECTIVE: Patient seen and examined OBJECTIVE: Vital Signs Period Temp Pulse Resp BP Sys/Sigala Pulse Ox Last 24 Hr 98.2 F-98.6 F 63-68 18-18 129-144/86-92 96-100 PHYSICAL EXAM GENERAL: The patient is awake, alert, and fully oriented, in no acute distress. HEAD: Normal with no signs of trauma. EYES: PERRL, extraocular movements intact, sclera anicteric, conjunctiva clear. ENT: Ears normal, nares patent, oropharynx clear without exudates, moist mucous membranes. NECK: Trachea midline, full range of motion, supple. LUNGS: Breath sounds equal, clear to auscultation bilaterally, no wheezes, no crackles, no accessory muscle use. HEART: Regular rate and rhythm, S1, S2 without murmur, rub or gallop. ABDOMEN: Soft, nontender, nondistended, normoactive bowel sounds, no guarding, no rebound, no hepatosplenomegaly, no masses. EXTREMITIES: 2+ pulses, warm, well-perfused, no edema. NEUROLOGICAL: Cranial nerves II through XII grossly intact. Normal speech, gait not observed. PSYCH: Normal mood, normal affect. SKIN: Warm, dry, normal turgor, no rashes or lesions noted. LABS Laboratory Results - last 24 hr 03/05/17 03/05/17 07:00 07:00 WBC 5.9 RBC 3.62 Hgb 10.9 Hct 32.1 L MCV 88.5 MCHC 34.1 RDW 13.3 Plt Count 211 D MPV 7.8 Neutrophils % 59.1 D Lymphocytes % 26.6 D Monocytes % 10.1 Eosinophils % 3.8 D Basophils % 0.4 Sodium 141 Potassium 3.9 Chloride 108 H Carbon Dioxide 23 Anion Gap 10 BUN 10 Creatinine 0.6 Creat Clearance w eGFR > 60 Random Glucose 98 Calcium 8.6 Phosphorus 2.7 Magnesium 1.9 Total Bilirubin 0.3 D AST 40 H D ALT 31 D Alkaline Phosphatase 64 Total Protein 6.4 Albumin 2.7 L HOSPITAL COURSE: Date of Admission:03/03/17 Date of Discharge: 03/05/17 Also was suggested to repeat vaginal US within 3 months as per 's suggestion. <Gio Eden - Last Filed: 03/05/17 18:58> Discharge Summary Reason For Visit: COLITIS Current Active Problems Colitis (Acute) Asthma (Chronic) Hypertension (Chronic) Hypothyroidism (Chronic) Obesity (BMI 30-39.9) (Chronic) - Home Medications Comprehensive Discharge Medication List: Ambulatory Orders Amlodipine Besylate [Norvasc -] 10 mg PO DAILY #30 tablet 03/07/16 Levothyroxine [Synthroid -] 75 mcg PO DAILY 05/05/16 Levofloxacin [Levaquin] 500 mg PO DAILY #4 tablet 03/05/17 Metronidazole 500 mg PO Q6H #16 tablet 03/05/17 <Tre Gupta - Last Filed: 03/05/17 15:47> Current Active Problems Colitis (Acute) Asthma (Chronic) Hypertension (Chronic) Hypothyroidism (Chronic) Obesity (BMI 30-39.9) (Chronic) - Home Medications Comprehensive Discharge Medication List: Ambulatory Orders Amlodipine Besylate [Norvasc -] 10 mg PO DAILY #30 tablet 03/07/16 Levothyroxine [Synthroid -] 75 mcg PO DAILY 05/05/16 Levofloxacin [Levaquin] 500 mg PO DAILY #4 tablet 03/05/17 Metronidazole 500 mg PO Q6H #16 tablet 03/05/17 <Gio Eden - Last Filed: 03/05/17 18:58> Condition: Stable - Instructions Diet, Activity, Other Instructions: You have been treated for acute colitis. Please garbage pick up man the medication from pharmacy and take as directed for 4 more days. Follow up with your primary doctor in one week. Follow up with Dr. Fernandez (GI) in one week. For your ovarian cyst please make an appointment to follow up with Dr. Brooks(OBGYN). Regular diet . Increase activity as tolerated. Referrals: Baltazar Brooks MD [Staff Physician] - Chirag Fernandez MD [Staff Physician] - Disposition: HOME Problem List - Problems (1) Colitis (2) Asthma (3) Hypertension Code(s): I10 - ESSENTIAL (PRIMARY) HYPERTENSION (4) Hypothyroidism Code(s): E03.9 - HYPOTHYROIDISM, UNSPECIFIED (5) Obesity (BMI 30-39.9) Code(s): E66.9 - OBESITY, UNSPECIFIED <Tre Gupta - Last Filed: 03/05/17 15:47> This patient is new to me today: No Emergency Visit: Yes ED Registration Date: 03/03/17 Care time: The patient presented to the Emergency Department on the above date and was hospitalized for further evaluation of their emergent condition. Critical Care patient: No - Discharge Referral Referred to [facility] Med P.C.: No <Tre Gupta - Last Filed: 03/05/17 15:47>
--- NOTE | 2017-03-05 16:53 | HOSP ---
Subjective - Review of Symptoms Events since last encounter: To Whom it May Concern, This letter is to inform you that Christian Erazo was admitted to [facility] on 03/01/17 for an acute medical condition. She is able to return to work 03/08/17 upon completion of her treatment. If you have any further question please call [phone] Thank you, Tre Gupta MD Physical Examination Vital Signs: Visit type - Emergency Visit Emergency Visit: Yes ED Registration Date: 03/03/17 Care time: The patient presented to the Emergency Department on the above date and was hospitalized for further evaluation of their emergent condition. - New Patient This patient is new to me today: No - Critical Care Critical Care patient: No
--- NOTE | 2017-03-05 18:38 | PN ---
Teaching Attending Note Name of Resident: Tre Gupta ATTENDING PHYSICIAN STATEMENT I saw and evaluated the patient. I reviewed the resident's note and discussed the case with the resident. I agree with the resident's findings and plan as documented. SUBJECTIVE: Patient is feelinb better today. No further abdominal pain. OBJECTIVE: Vital Signs Temperature 98.2 F 03/05/17 05:58 Pulse Rate 68 03/05/17 10:00 Respiratory Rate 18 03/05/17 10:00 Blood Pressure 130/92 03/05/17 10:00 O2 Sat by Pulse Oximetry (%) 96 03/05/17 09:00 CBCD WBC 5.9 K/mm3 (4.0-10.0) 03/05/17 07:00 RBC 3.62 M/mm3 (3.60-5.2) 03/05/17 07:00 Hgb 10.9 GM/dL (10.7-15.3) 03/05/17 07:00 Hct 32.1 % (32.4-45.2) L 03/05/17 07:00 MCV 88.5 fl (80-96) 03/05/17 07:00 MCHC 34.1 g/dl (32.0-36.0) 03/05/17 07:00 RDW 13.3 % (11.6-15.6) 03/05/17 07:00 Plt Count 211 K/MM3 (134-434) D 03/05/17 07:00 MPV 7.8 fl (7.5-11.1) 03/05/17 07:00 CMP Sodium 141 mmol/L (136-145) 03/05/17 07:00 Potassium 3.9 mmol/L (3.5-5.1) 03/05/17 07:00 Chloride 108 mmol/L (98-107) H 03/05/17 07:00 Carbon Dioxide 23 mmol/L (21-32) 03/05/17 07:00 Anion Gap 10 (8-16) 03/05/17 07:00 BUN 10 mg/dL (7-18) 03/05/17 07:00 Creatinine 0.6 mg/dL (0.55-1.02) 03/05/17 07:00 Creat Clearance w eGFR > 60 (>60) 03/05/17 07:00 Random Glucose 98 mg/dL (74-106) 03/05/17 07:00 Calcium 8.6 mg/dL (8.5-10.1) 03/05/17 07:00 Total Bilirubin 0.3 mg/dL (0.2-1.0) D 03/05/17 07:00 AST 40 U/L (15-37) H D 03/05/17 07:00 ALT 31 U/L (12-78) D 03/05/17 07:00 Alkaline Phosphatase 64 U/L (45-117) 03/05/17 07:00 Total Protein 6.4 g/dl (6.4-8.2) 03/05/17 07:00 Albumin 2.7 g/dl (3.4-5.0) L 03/05/17 07:00 Home Medications Medication Instructions Recorded Amlodipine Besylate [Norvasc -] 10 mg PO DAILY #30 tablet 03/07/16 Levothyroxine [Synthroid -] 75 mcg PO DAILY 05/05/16 Levofloxacin [Levaquin] 500 mg PO DAILY #4 tablet 03/05/17 Metronidazole 500 mg PO Q6H #16 tablet 03/05/17 CT suggestive of possible early Colitis US of Kidneys and bladder: 3.7cm left ovarian cyst slightly thickened internal septation ASSESSMENT AND PLAN: 52 yo F, asthma,hypothyroidism , and HTN presents with 3 day history of worsening RLQ abdominal pain placed on observation for possible colitis. # Acute Early colitis received IV antibiotics Levaquin /flagyl , will discharge her with po flagyl/levaquin for 4 more days. discussed with Follow with for colonoscopy # Left ovarian cyst 3.7cm with slightly thickened internal septation. OBGyn consult, ordered CA-125, CEA level and Alpha protein, needs to follow up with as an outpatient , repeat US in 3 months, transvaginal US in 3 months period. # Hx of panick disorder on Zoloft continue # Asthma Albuterol PRN # Hypertension Amlodipine 5mg PO daily # Hypothyroidism Continue Levothyroxine # Morbid Obesity (BMI 30-39.9) weight loss recommended Discharge patient home with follow visits to and
[2017-03-05 20:09] VITALS: BP 120/76; PULSE 76; TEMP 98.3
[2017-03-08 09:15] LABS: ALPHA 2 MACROGLOBULINS,QN 99 mg/dL (110-276); BILIRUBIN TOTAL <0.1 mg/dL (0.0-1.2); FIBROSIS SCORE- 0.01 (0.00-0.21); GGT= 29 IU/L (0-60); GLUCOSE SERUM 94 mg/dL (65-99); HAPTOGLOBIN= 275 mg/dL (34-200); HEIGHT. 62 Inches (.); STEATOSIS SCORE- 0.82 (0.00-0.30); TRIGLYCERIDES= 140 mg/dL (0-149); WEIGHT. 182 LBS (.)
== END 2017-03-05 17:35 | disposition home or self-care (01) | DRG 249 ==
LOC: JER 12:13 → JERBED 18:08 → J5S 03-02 02:01 → OBSVTOIN 03-03 12:15
PROVIDERS: ADMIT Internal Medicine; ATTEND Internal Medicine
DX: K52.9 Noninfective gastroenteritis and colitis, unspecified (principal); I10 Essential (primary) hypertension; J45.909 Unspecified asthma, uncomplicated; E03.9 Hypothyroidism, unspecified; E66.01 Morbid (severe) obesity due to excess calories; Z68.33 Body mass index [BMI] 33.0-33.9, adult; Z71.3 Dietary counseling and surveillance; R11.2 Nausea with vomiting, unspecified; N83.202 Unspecified ovarian cyst, left side; F41.0 Panic disorder [episodic paroxysmal anxiety]; Z87.891 Personal history of nicotine dependence
CPT/HCPCS: 36415; 74177-TC; 76775-TC; 76856-TC; 80053; 81003; 81015; 82105; 82378; 83735; 84100; 84703; 85025; 85610; 85730; 86304; 86803; 86850; 86900; 86901; 87045; 87046; 87086; 87205; 90732; 94010; 94640; 99283-25; G0009; G0378

== ENCOUNTER 2017-09-16 06:20 | Day surgery (SDC) | payer OTHER ==
[2017-09-13 10:56] VITALS: BMI 33.1
[2017-09-16] MEDS: HYDROmorphone HCL CARPU-JECT 2 MG/1 ML DISP.SYRIN ONE ×2 (09:38→09:48)
--- NOTE | 2017-09-16 09:38 | HP ---
Past Medical History - Primary Care Physician PCP:: Rickey Moran - Admission Chief Complaint: 52yo P4 with menorrhagia, adenomyosis, fibroid uterus admitted for hysteroscopy, D&C, endometrial ablation. 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: No: Alzheimer's, CVA, Dementia, Migraine, Multiple Sclerosis, Peripheral Neuropathy, Parkinson's, Seizure, Syncope, TIA, Vertigo, Other Cardiovascular: Yes: HTN Pulmonary: Yes: Asthma Gastrointestinal: Yes: Ulcerative Colitis Hepatobiliary: No: Cirrhosis, Cholelithiasis, Cholecystitis, Choledocholithiasis , Hepatitis A, Hepatitis B, Hepatitis C, Other Renal/: No: Renal Failure, Renal Inusuff, BPH, Cancer, Hematuria, Hemodialysis , Neurogenic Bladder, Renal Calculi, UTI, Other Reproductive: Yes: Fibroids, PID ...Para: 4 ...Spon : 2 ...Induced : 1 Heme/Onc: Yes: Anemia Infectious Disease: No: AIDS, C-Diff, Herpes Zoster, HIV, MRSA, STD's, Tuberculosis, VREF, Other Psych: No: Addictions, Anxiety, Bipolar, Depression, Panic, Psychosis, Schizophrenia, Other Musculoskeletal: No: Bursitis, Chronic low back pain, Hemiparesis, Hemiplegia, Osteoarthritis, Paraplegia, Other Rheumatology: No: Fibromyalgia, Gout, Lupus, Rheumatoid Arthritis, Sarcoidosis, Vasculitis, Other Endocrine: No: Gurjit's Disease, Helen's Disease, Diabetes Insipidus, Diabetes Mellitus, Hyperparathyroidism, Hyperthyroidism, Hypothyroidism, Osteopenia, SIADH, Other Dermatology: No: Basal Cell, Cellulitis, Eczema, Melanoma, Psoriasis, Squamous Cell, Other - Past Surgical History Past Surgical History: Yes: Tubal Ligation Hx Myomectomy: No Hx Transabdominal Cerclage: No Additional Surgical History: D&C. Ovarian cystectomy. Rib "shaved" - Smoking History Smoking history: Former smoker Have you smoked in the past 12 months: No Aproximately how many cigarettes per day: 0 If you are a former smoker, when did you quit?: 12 years ago - Alcohol/Substance Use Hx Alcohol Use: Yes (SOCIAL) History of Substance Use: reports: None - Social History ADL: Independent History of Recent Travel: No Home Medications - Allergies Allergies/Adverse Reactions: Allergies Allergy/AdvReac Type Severity Reaction Status Date / Time morphine AdvReac Intermediate Itching Verified 09/16/17 06:57 - Home Medications Home Medications: Ambulatory Orders Ibuprofen 600 mg PO TID #30 tablet 08/11/17 Albuterol 0.083% Nebulizer Alia [Ventolin 0.083%] 1 neb NEB TID 09/13/17 Albuterol Sulfate [Proair Respiclick] 90 mcg IH PRN 09/13/17 Diphenhydramine HCl [Benadryl -] 25 mg PO DAILY 09/13/17 Fluticasone/Salmeterol [Advair 250-50 Diskus] 1 each IH BID 09/13/17 Hydrochlorothiazide 25 mg PO DAILY 09/13/17 Lisinopril [Prinivil] 20 mg PO DAILY 09/13/17 Family Disease History - Family Disease History Family Disease History: Diabetes: Mother, Heart Disease: Father (renal failure) , Other: Father Review of Systems - Review of Systems Constitutional: reports: No Symptoms Eyes: reports: No Symptoms HENT: reports: No Symptoms Neck: reports: No Symptoms Cardiovascular: reports: No Symptoms Respiratory: reports: No Symptoms Gastrointestinal: reports: No Symptoms Genitourinary: reports: No Symptoms Breasts: reports: No Symptoms Reported Musculoskeletal: reports: No Symptoms Integumentary: reports: No Symptoms Neurological: reports: No Symptoms Endocrine: reports: No Symptoms Hematology/Lymphatic: reports: No Symptoms Psychiatric: reports: No Symptoms Pain Intensity: 0 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 Signs: Vital Signs Temperature 97.8 F 09/16/17 06:45 Pulse Rate 74 09/16/17 06:45 Respiratory Rate 16 09/16/17 06:45 Blood Pressure 130/94 09/16/17 06:45 O2 Sat by Pulse Oximetry (%) 97 09/16/17 06:45 Constitutional: Yes: No Distress, Calm, Obese Eyes: Yes: WNL, Conjunctiva Clear HENT: Yes: WNL, Atraumatic, Normocephalic Neck: Yes: WNL, Supple, Trachea Midline Cardiovascular: Yes: WNL, Regular Rate and Rhythm Respiratory: Yes: WNL, Regular, CTA Bilaterally Gastrointestinal: Yes: WNL, Normal Bowel Sounds, Soft, Abdomen, Obese ...Rectal Exam: Yes: Deferred Renal/: Yes: WNL Pelvis: Yes: WNL External Genitalia: Yes: Normal Internal Exam Deferred: No Vaginal Exam: Yes: Normal Cervix: Yes: Normal Uterus: Yes: Enlarged Adnexa: Normal: Left, Right Breast(s): Yes: WNL Musculoskeletal: Yes: WNL Extremities: Yes: WNL Edema: No Integumentary: Yes: WNL Neurological: Yes: WNL, Alert, Oriented ...Motor Strength: WNL Psychiatric: Yes: WNL, Alert, Oriented Imaging - Results Ultrasound: Report Reviewed Assessment/Plan 52yo P4 with menorrhagia, adenomyosis, fibroid uterus admitted for hysteroscopy , D&C, endometrial ablation. We had discussed the risks, benefits, alternatives of surgery at length including but not limited to infection, bleeding, scarring , perforation, amenorrhea, infertility, hysterectomy, etc. The pt verbalized understanding and requested to proceed with surgery. I emphasized that all surgeries have risks and no guarantees can be provided
--- NOTE | 2017-09-16 09:48 | OP ---
Operative Note - Note: Operative Date: 09/16/17 Pre-Operative Diagnosis: Menorrhagia. Adenomyosis. Fibroid uterus Operation: Hysteroscopy, D&C, Endometrial ablation using HTA Genesys Findings: Enlarge uterine cavity with some submucosal myomas. Post-Operative Diagnosis: Same as Pre-op Surgeon: Rickey Moran Anesthesiologist/REGIONAL SALES ASSOCIATE: Benjy Nguyen Anesthesia: General Specimens Removed: Endometrial curettings Estimated Blood Loss (mls): 5 Drains, Volume Out (mls): 0 Blood Volume Replaced (mls): 0 Fluid Volume Replaced (mls): 600 Operative Report Dictated: Yes
[2017-09-16] MEDS ORDERED: oxyCODONE HCL 5 MG TABLET PO PRN ×2 (09:49→10:29)
[2017-09-16] MEDS ORDERED: ACETAMINOPHEN 1000 MG/100 ML VIAL (NON FORMULARY) IVPB PRN (09:49)
[2017-09-16] MEDS ORDERED: IBUPROFEN 800 MG/8 ML IJ IVPB PRN (09:49)
[2017-09-16] MEDS ORDERED: KETOROLAC TROMETHAMINE 30 MG/1 ML VIAL ONE (09:58)
[2017-09-16] MEDS ORDERED: SODIUM CHLORIDE 1,000 ML IV SCH (10:00)
[2017-09-16] MEDS ORDERED: HYDROmorphone HCL CARPU-JECT 2 MG/1 ML DISP.SYRIN IVPUSH PRN (10:29)
[2017-09-16] MEDS ORDERED: ONDANSETRON 4 MG/2 ML VIAL IVPUSH PRN (10:29)
[2017-09-16] MEDS ORDERED: LACTATED RINGERS SOLUTION 1,000 ML IV SCH (10:30)
[2017-09-16 10:57] VITALS: TEMP 98.5
[2017-09-16 13:38] VITALS: BP 127/70; PULSE 87
--- NOTE | 2017-09-16 19:54 | OP ---
DATE OF OPERATION: 09/16/2017 PREOPERATIVE DIAGNOSES: Menorrhagia, adenomyosis, possible fibroid uterus. POSTOPERATIVE DIAGNOSES: Menorrhagia, adenomyosis, possible fibroid uterus. PROCEDURE: Hysteroscopy, dilatation and curettage, endometrial ablation using [employer] System. FINDINGS: Enlarged uterine cavity with what appears to be some submucosal myomas; otherwise, normal uterine cavity. No pelvic or adnexal masses on examination under anesthesia. SURGEON: Rickey Moran MD ANESTHESIOLOGIST: Benjy Nguyen MD COMPLICATIONS: None. ESTIMATED BLOOD LOSS: 5 mL INTRAVENOUS FLUIDS: 600 mL of crystalloids. HYSTEROSCOPY FLUID DEFICIT: 0 mL PATHOLOGY: Endometrial curettings. FINDINGS: Examination under anesthesia revealed a slightly enlarged uterus with no pelvic or adnexal masses. Hysteroscopy revealed a slightly enlarged endometrial cavity with what appeared to be possible submucosal myomas. Otherwise, the endometrial cavity was within normal limits. DESCRIPTION OF PROCEDURE: The patient was met preoperatively. Risks, benefits, and alternatives of surgery were discussed in details. All questions were answered. The patient was then brought to the OR with the IV running. She was placed on the surgical table in the supine position. General endotracheal anesthesia was achieved without difficulty. The patient was then placed in a dorsal lithotomy position using adjustable Alban stirrups. The patient was examined under anesthesia. A slightly enlarged uterus was noted. There were no pelvic or adnexal masses noted on examination under anesthesia. The patient was then prepped and draped in the usual sterile fashion. A timeout procedure was conducted as per standard protocol. A weighted speculum was introduced inside the vagina with good visualization of the cervix. The anterior cervical lip was grasped with a single-tooth tenaculum. The cervical os was dilated to accommodate size 25 Ward dilator. A uterine curettage was then performed, and the tissue was submitted to Pathology for evaluation. Once the curettage was completed, a hysteroscope was introduced inside the uterine cavity. The uterine cavity appeared to be slightly enlarged with possible submucosal myomas. Once the uterine cavity was surveyed, a hysteroscopy procedure was initiated using [employer] System. The hysteroscopy was conducted under direct visualization with a closed-loop fluid management system. There was no fluid lost or deficit during the procedure. There were no complications during the procedure. The entire procedure was conducted under direct real-time visualization. Approximately 8 minutes and 40 seconds into the ablation cycle, the [employer] System automatically shut down due to an unknown error. The endometrial ablation was not restarted, and the surgeon proceeded with a cool-down cycle. The cool-down cycle took approximately 10 minutes. The entire process was under direct visualization and without complications. Once the cool-down cycle was completed, all of the instruments were removed from the patient. Good hemostasis was noted. Hysteroscopy confirmed excellent ablation of the endometrial cavity at the end of procedure. Sponge, lap, and instrument counts were correct. The patient was transferred to recovery room awake and in stable condition. Terri [id number]
--- NOTE | 2017-09-17 18:41 | PATH ---
Surgical Pathology Report Patient Name: LAMBERT ALVAREZ [facility]. Rec. #: [id number] /Age/Gender: 1965 (Age: 52) / F Account: [id number] Location: [facility] Taken: 09/16/2017 Received: 09/16/2017 Reported: 09/17/2017 Physicians: Rickey Moran M.D. Specimen(s) Received ENDOMETRIAL CURETTINGS Clinical History Preoperative diagnosis: Adenomyosis, frequent menstruation with regular cycles Final Diagnosis ENDOMETRIAL CURETTINGS, DILATATION AND CURETTAGE: POLYPOID FRAGMENTS OF PROLIFERATIVE ENDOMETRIUM AND BENIGN ENDOCERVICAL TISSUE. Electronically Signed Trinidad Dacosta M.D. Gross Description Received in formalin labeled "endometrial curettings," is a 1.8 x 1.5 x 0.2 cm aggregate of elias-brown soft tissue fragments. The formalin is filtered and the specimen is entirely submitted in one cassette. 09/16/201709/16/2017
== END 2017-09-16 13:39 | disposition home or self-care (01) ==
LOC: JASU-SURG 06:20
PROVIDERS: ATTEND Obstetrics & Gynecology
PROC: 0U5B8ZZ Destruction of Endometrium, Via Natural or Artificial Opening Endoscopic (ICD-10-PCS; principal; 2017-09-16 08:00)
PROC: 0UDB8ZX Extraction of Endometrium, Via Natural or Artificial Opening Endoscopic, Diagnostic (ICD-10-PCS; 2017-09-16 08:00)
DX: N92.0 Excessive and frequent menstruation with regular cycle (principal); N80.0 Endometriosis of uterus; D25.0 Submucous leiomyoma of uterus
CPT/HCPCS: 84703; 86850; 86900; 86901; 88305-TC; 94760

== ENCOUNTER 2018-01-04 10:36 | Emergency (ER) | payer OTHER ==
[2018-01-04 10:59] VITALS: BP 154/108; PULSE 71; TEMP 97.9; BMI 31.8
--- NOTE | 2018-01-04 11:38 | PDOC ---
History of Present Illness - General Chief Complaint: Sore Throat Stated Complaint: SORE THROAT Time Seen by Provider: 01/04/18 11:29 History Source: Patient Exam Limitations: No Limitations - History of Present Illness Initial Comments: 01/04/18 11:34 [id number] woman past medical history of asthma presents emergency Department with 2 weeks of vocal hoarseness and 1 week of sore throat. Patient states over the past couple days she developed a subjective fever and the pain in her throat became worse. She states she still currently able to tolerate her own secretions and is able to eat and drink without difficulty. She denies chest pain, abdominal pain, nausea, vomiting, shortness of breath. Past History - Past Medical History Allergies/Adverse Reactions: Allergies Allergy/AdvReac Type Severity Reaction Status Date / Time morphine AdvReac Intermediate Itching Verified 01/04/18 10:59 Home Medications: Ambulatory Orders Lisinopril [Prinivil] 20 mg PO DAILY 09/13/17 Amoxicillin - [Amoxicillin 500mg Capsule -] 500 mg PO BID #20 capsule 01/04/18 Anemia: Yes (iron deficiency) Asthma: Yes COPD: No HTN: Yes Hypercholesterolemia: Yes Thyroid Disease: Yes (hypo) - Immunization History Immunization Up to Date: Yes - Suicide/Smoking/Psychosocial Hx Smoking Status: No Smoking History: Former smoker Have you smoked in the past 12 months: No Number of Cigarettes Smoked Daily: 0 If you are a former smoker, when did you quit?: 12 years ago Information on smoking cessation initiated: No Hx Alcohol Use: Yes (SOCIAL) Drug/Substance Use Hx: No Substance Use Type: None Review of Systems - Review of Systems Able to Perform ROS?: Yes Is the patient limited [place] proficient: No Constitutional: Yes: See HPI HEENTM: Yes: See HPI Respiratory: Yes: See HPI Cardiac (ROS): No: Symptoms Reported ABD/GI: No: Symptoms Reported : No: Symptoms Reported Musculoskeletal: No: Symptoms Reported Integumentary: No: Symptoms Reported Neurological: No: Symptoms reported Endocrine: No: Symptoms Reported Hematologic/Lymphatic: No: Symptoms Reported *Physical Exam - Vital Signs Last Vital Signs Temp Pulse Resp BP Pulse Ox 97.9 F 71 18 154/108 99 01/04/18 10:56 01/04/18 10:56 01/04/18 10:56 01/04/18 10:56 01/04/18 10:56 - Physical Exam General Appearance: Yes: Appropriately Dressed. No: Apparent Distress HEENT: positive: TMs Normal, Muffled/Hoarse voice, Pharyngeal Erythema, Tonsillar Exudate, Tonsillar Erythema Neck: positive: Trachea midline, Supple Respiratory/Chest: positive: Lungs Clear, Normal Breath Sounds. negative: Respiratory Distress, Accessory Muscle Use Cardiovascular: positive: Regular Rhythm, Regular Rate. negative: Murmur Musculoskeletal: positive: Normal Inspection. 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 TMs within normal limits bilaterally. External auditory canals clear free of exudates or erythema Pharyngeal and peritonsillar erythema present. Exudate present to tonsils. Tender anterior cervical lymphadenopathy present. Halitosis present. No stridor auscultated. Lungs clear to auscultation bilaterally respirations even and unlabored. Physical exam is highly indicative of a streptococcal pharyngitis. I will treat the patient with amoxicillin as an outpatient. *DC/Admit/Observation/Transfer Diagnosis at time of Disposition: Streptococcal pharyngitis - Discharge Dispostion Disposition: HOME Condition at time of disposition: Stable Admit: No - Prescriptions Prescriptions: Amoxicillin - [Amoxicillin 500mg Capsule -] 500 mg PO BID #20 capsule - Referrals Referrals: Ruiz Granados MD [Primary Care Provider] - - Patient Instructions Additional Instructions: Take amoxicillin as prescribed. Salt water garggles. Throw away your toothbrush in 3 days and start using a new toothbrush. No sharing of drinks, utensils or toothbrushes. Take Motrin as directed by spray mixer's instructions. Return to ED for worsening fevers, worsening sore throat, chest pain, shortness of breath or any other concerns. - Post Discharge Activity
== END 2018-01-04 11:46 | disposition home or self-care (01) ==
LOC: JERFT 10:36
DX: J02.0 Streptococcal pharyngitis (principal); B95.5 Unspecified streptococcus as the cause of diseases classified elsewhere; I10 Essential (primary) hypertension; E78.00 Pure hypercholesterolemia, unspecified; D50.8 Other iron deficiency anemias; J45.909 Unspecified asthma, uncomplicated; Z87.891 Personal history of nicotine dependence
CPT/HCPCS: 99281-25

== ENCOUNTER 2018-08-07 08:27 | Inpatient (IN) | payer SELFPAY ==
--- NOTE | 2018-08-07 09:10 | PDOC ---
History of Present Illness - General Chief Complaint: Shortness of Breath Stated Complaint: SOB Time Seen by Provider: 08/07/18 08:51 - History of Present Illness Initial Comments: 53yo F with PMH of HTN, thyroid disorder, asthma, and obesity presenting with shortness of breath. Patient states that this started at 2am this morning, waking her up from sleep. She took her asthma inhaler twice and felt no relief. Patient endorses chest tightness that she rates 10/10. It is non-radiating and constant, worsening when she lays flat. Patient reports diaphoresis, but no nausea or vomiting. She has had dyspnea on exertion for the last two weeks. Patient reports that for the past three days she has had chills, scratchy throat , and has been unable to sleep laying flat has had to use four pillows. Patient states this episode differs from previous asthma attacks because she is not wheezing. Never had an NH. Patient was recommended by her primary care doctor to see a direct support professional home health, but had not done so. Father had a NH in his early 70s. No hemoptysis, no recent surgical history, no recent mobilization, no hormone use, no history of DVT or PE. Reports difficulty urinating, but no dysuria, hematuria, or frequency. No fevers or abdominal pain. Past History - Past Medical History Allergies/Adverse Reactions: Allergies Allergy/AdvReac Type Severity Reaction Status Date / Time morphine AdvReac Intermediate Itching Verified 06/03/18 12:11 Home Medications: Ambulatory Orders Lisinopril [Prinivil] 20 mg PO DAILY 09/13/17 Albuterol Sulfate Inhaler - [Ventolin Hfa Inhaler -] 1 puff IH BID 06/03/18 Fluticasone/Salmeterol [Advair 250-50 Diskus] 1 each IH BID 06/03/18 Levothyroxine [Synthroid -] 50 mcg PO DAILY 08/07/18 Anemia: Yes (iron deficiency) Asthma: Yes COPD: No HTN: Yes Hypercholesterolemia: Yes Thyroid Disease: Yes (hypo) - Immunization History Immunization Up to Date: Yes - Suicide/Smoking/Psychosocial Hx Smoking Status: No Smoking History: Former smoker Have you smoked in the past 12 months: No Number of Cigarettes Smoked Daily: 2 If you are a former smoker, when did you quit?: 12 years ago Information on smoking cessation initiated: No Hx Alcohol Use: No Drug/Substance Use Hx: No Substance Use Type: None Review of Systems - Review of Systems Comments:: Constitutional: no fever, +chills HEENT: +throat pain, no dysphagia Cardiovascular: no chest pain, no palpitations Respiratory: no cough, +shortness of breath Gastrointestinal: no abdominal pain, no nausea, no vomiting Genitourinary: no dysuria, no frequency Musculoskeletal: no myalgia, no arthralgia Skin: no rash, no itching Neurologic: no headache, no dizziness *Physical Exam - Vital Signs Last Vital Signs Temp Pulse Resp BP Pulse Ox 98.0 F 107 H 20 178/135 H 100 08/07/18 08:48 08/07/18 08:56 08/07/18 08:48 08/07/18 08:48 08/07/18 08:56 - Physical Exam Comments: General: Awake, alert, and fully oriented Head: no signs of trauma Eyes: EOMI, sclera anicteric ENT: Moist mucus membranes Neck: Normal ROM, supple Lungs: Tachypnic, Lungs clear, Normal breath sounds Cardio: Regular rhythm, S1 and S2 present Abdomen: Soft, nontender. No guarding, no rebound, no masses Extremities: Normal range of motion, Distal pulses present, no cords or tenderness SKIN: Warm, Dry, normal turgor Neurologic: Cranial nerves II through XII grossly intact. Normal speech ED Treatment Course - LABORATORY CBC & Chemistry Diagram: 08/07/18 09:00 08/07/18 09:00 - RADIOLOGY Radiology Studies Ordered: Category Date Time Status CHEST PA & LAT [RAD] Stat Radiology 08/07/18 09:03 Ordered Medical Decision Making - Medical Decision Making 53yo F with PMH of HTN, thyroid disorder, asthma, and obesity presenting with shortness of breath. -DDX includes but not limited to CHF, ACS, PE, PNA, asthma exacerbation, anxiety -Labs -EKG: rate 110, QTc 468, sinus tachycardia with TWI in anterolateral leads -CXR -CTA: Decision made to CTA patient to rule out PE as she is tachycardic and SOB. -duoneb, ativan 08/07/18 09:09 -Patient reports feeling better after receiving ativan and duoneb -CXR shows "left lower lobe infiltrate" suggestive of pneumonia. Ordered ceftriaxone and azithromycin. -BNP elevated ~5000 -Ordered blood cultures, lactate 08/07/18 10:25 Patient reports shortness of breath and anxiety after CTA as she had to lay flat. 0.5 ativan ordered 08/07/18 11:43 CTA negative for PE. Bilateral pleural effusions consistent with CHF. Dr. Heller discussed case with inpatient team who accepted patient for admission 08/07/18 12:15 *DC/Admit/Observation/Transfer Diagnosis at time of Disposition: CHF (congestive heart failure) Qualifiers: Heart failure type: unspecified Heart failure chronicity: acute Qualified Code( s): I50.9 - Heart failure, unspecified Pneumonia Qualifiers: Pneumonia type: due to unspecified organism Laterality: unspecified laterality Lung location: unspecified part of lung Qualified Code(s): J18.9 - Pneumonia, unspecified organism - Discharge Dispostion Condition at time of disposition: Stable - Referrals Referrals: Ruiz Granados MD [Primary Care Provider] - - Patient Instructions - Post Discharge Activity
[2018-08-07] MEDS ORDERED: predniSONE 20 MG TABLET (UD) PO ONE (09:12)
[2018-08-07] MEDS ORDERED: ALBUTEROL SO4 2.5/IPRATROPIUM 0.5 INH SOL 3 ML VIAL.NEB. NEB ONE ×2 (09:12)
[2018-08-07 09:28] LABS: BASO % 0.4 % (0-2.0); EOS % 0.9 % (0-4.5); HEMATOCRIT 35.1 % (32.4-45.2); HEMOGLOBIN 11.4 GM/dL (10.7-15.3); LYMPH % 11.7 % (8-40); MCH 29.8 pg (25.7-33.7); MCHC 32.6 g/dl (32.0-36.0); MEAN CELL VOLUME 91.5 fl (80-96); MONO % 4.5 % (3.8-10.2); NEUT % 82.5 % (42.8-82.8); PLATELET COUNT 243 K/MM3 (134-434); RBC 3.84 M/mm3 (3.60-5.2); RDW 14.2 % (11.6-15.6); WHITE BLOOD COUNT 8.5 K/mm3 (4.0-10.0)
[2018-08-07] MEDS ORDERED: predniSONE 20 MG TABLET (UD) ONE (09:28)
[2018-08-07] MEDS ORDERED: LORazepam 2 MG/ML SDV VIAL ONE ×2 (09:29→12:31)
--- NOTE | 2018-08-07 09:44 | PDOC ---
Attending Attestation - Resident Resident Name: Berenice Brown - ED Attending Attestation I have performed the following: I have examined & evaluated the patient, The case was reviewed & discussed with the resident, I agree w/resident's findings & plan, Exceptions are as noted - HPI HPI: 08/07/18 09:45 53 yo F c/ hx of HTN, thyroid disorder, asthma, obesity p/w SOB since 2 this morning. [place] chills and aches for last several days but no cough. Denies sick contacts. [place] lately with [employer] and SOB. This morning, woke up with severe chest tightness and difficulty breathing. [place] orthopneic. Uses now 4 pillows. Denies prior hx of CHF. has two nebulizers used this morning with no relief. Denies fevers, chills. Came in for an evaluation. - Physicial Exam PE: 08/07/18 09:48 GENERAL: Awake, alert, and fully oriented, in no acute distress HEAD: No signs of trauma EYES: EOMI, sclera anicteric, conjunctiva clear ENT: Auricles normal inspection, hearing grossly normal, nares patent,Moist mucosa NECK: Normal ROM, supple, LUNGS: Diminished breath sounds at the bases. +tight breath sounds. Mild tachypneic. HEART: Tachycardic. Regular rate and rhythm, normal S1 and S2, no murmurs, rubs or gallops ABDOMEN: Soft, nontender, No guarding, no rebound. No masses EXTREMITIES: Normal range of motion, no edema. No clubbing or cyanosis. No cords, erythema, or tenderness NEUROLOGICAL: Cranial nerves II through XII grossly intact. Normal speech SKIN: Warm, Dry, normal turgor, no rashes or lesions noted. - Medical Decision Making 08/07/18 09:48 Vital Signs Temp Pulse Resp BP Pulse Ox 98.0 F 95 H 22 H 157/114 H 95 08/07/18 08:48 08/07/18 09:24 08/07/18 09:24 08/07/18 09:24 08/07/18 09:24 The patient's shortness of breath may be secondary to congestive heart failure. However, the patient did report this feels somewhat similar to her pneumonia. He which is not coughing, her chest x-ray demonstrates left lower pneumonia. Within differentials also rule out myocardial infarction and acute coronary syndrome. We'll obtain lactic acid and a cultures and give empiric community acquired pneumonia antibiotics. However, given the acute onset and shortness of breath and tachycardia, we'll obtain a CAT scan a chest rule out pulmonary was in. Ultimately, given the patient's shortness of breath, the patient should be admitted to the hospital for further evaluation. 08/07/18 12:08 CBC, BMP 08/07/18 09:00 08/07/18 09:00 CMP Sodium 141 mmol/L (136-145) 08/07/18 09:00 Potassium 3.6 mmol/L (3.5-5.1) 08/07/18 09:00 Chloride 110 mmol/L (98-107) H 08/07/18 09:00 Carbon Dioxide 19 mmol/L (21-32) L 08/07/18 09:00 Anion Gap 12 MMOL/L (8-16) 08/07/18 09:00 BUN 15 mg/dL (7-18) 08/07/18 09:00 Creatinine 0.6 mg/dL (0.55-1.3) 08/07/18 09:00 Creat Clearance w eGFR > 60 (>60) 08/07/18 09:00 Random Glucose 107 mg/dL (74-106) H 08/07/18 09:00 Calcium 8.9 mg/dL (8.5-10.1) 08/07/18 09:00 Total Bilirubin 0.6 mg/dL (0.2-1) 08/07/18 09:00 AST 52 U/L (15-37) H 08/07/18 09:00 ALT 64 U/L (13-61) H 08/07/18 09:00 Alkaline Phosphatase 84 U/L (45-117) 08/07/18 09:00 Troponin I 0.03 ng/ml (0.00-0.05) 08/07/18 09:00 B-Natriuretic Peptide 4957.5 pg/ml (5-125) H 08/07/18 09:00 Total Protein 7.1 g/dl (6.4-8.2) 08/07/18 09:00 Albumin 3.2 g/dl (3.4-5.0) L 08/07/18 09:00 TSH 2.57 uIU/ml (0.358-3.74) 08/07/18 09:00 Chest xray shows left lower infiltrate. Blood cultures and lactic acid ordered. Ceftriaxone and azithromycin ordered. CT chest demonstrates bilateral pleural effusions, borderline cardiomegaly. Will treat as new onset CHF. 20 mg IV lasix ordered. Case discussed with [facility] hospitalist. Larry admitted to [facility] admission. Case discussed in detail with admitting physician including history, physical exam and ancillary studies. Admitting physician has assumed care for the patient, will follow all pending diagnostics and will complete the evaluation and treatment. *DC/Admit/Observation/Transfer Diagnosis at time of Disposition: CHF (congestive heart failure) Qualifiers: Heart failure type: unspecified Heart failure chronicity: acute Qualified Code( s): I50.9 - Heart failure, unspecified Pneumonia Qualifiers: Pneumonia type: due to unspecified organism Laterality: unspecified laterality Lung location: unspecified part of lung Qualified Code(s): J18.9 - Pneumonia, unspecified organism - Discharge Dispostion Condition at time of disposition: Stable Decision to Admit order: Yes - Referrals - Patient Instructions - Post Discharge Activity Heart Score/ECG Review #1 ECG reviewed & interpreted by me at: 08:40 08/07/18 10:22 NSR 110, occasional PAC, no std/lianet, T wave flat I, avL, VTWI V4-V6, QTC 468 msec
[2018-08-07 09:55] LABS: INR 0.99 (0.83-1.09); PROTHROMBIN TIME (PATIENT) 11.7 SEC (9.7-13.0)
[2018-08-07 10:05] LABS: ALBUMIN 3.2 g/dl (3.4-5.0); ALK PHOS 84 U/L (45-117); ANION GAP 12 MMOL/L (8-16); BILIRUBIN,TOTAL 0.6 mg/dL (0.2-1); BLOOD UREA NITROGEN 15 mg/dL (7-18); CALCIUM 8.9 mg/dL (8.5-10.1); CHLORIDE 110 mmol/L (98-107); CO2 19 mmol/L (21-32); CREATININE 0.6 mg/dL (0.55-1.3); GLUCOSE,RANDOM 107 mg/dL (74-106); N-TERMINAL BNP 4957.5 pg/ml (5-125); POTASSIUM 3.6 mmol/L (3.5-5.1); SGOT/AST 52 U/L (15-37); SGPT/ALT 64 U/L (13-61); SODIUM 141 mmol/L (136-145); TOT PROT 7.1 g/dl (6.4-8.2)
[2018-08-07] MEDS ORDERED: AZITHROMYCIN IVPB 500 MG in DEXTROSE 5%-WATER - 250 ML IVPB ONE (10:22)
[2018-08-07] MEDS ORDERED: AZITHROMYCIN IVPB 500 MG/250 ML BAG IVPB ONE (11:40)
[2018-08-07] MEDS ORDERED: CEFTRIAXONE 1 GM/50 ML BAG ONE (11:41)
[2018-08-07] MEDS ORDERED: FUROSEMIDE 100 MG/10 ML INJECTABLE VIAL IVPB ONE (12:07)
[2018-08-07] MEDS ORDERED: FUROSEMIDE 40 MG/4 ML INJECTABLE VIAL IVPB ONE (12:20)
[2018-08-07 12:50] LABS: URINE APPEARANCE CLEAR; URINE BILIRUBIN NEGATIVE (<2.0 mg/dL); URINE COLOR STRAW; URINE GLUCOSE (UA) NEGATIVE (NEGATIVE); URINE KETONE NEGATIVE (NEGATIVE); URINE LEUK ESTERASE NEGATIVE (NEGATIVE); URINE NITRITE NEGATIVE (NEGATIVE); URINE PROTEIN NEGATIVE (NEGATIVE); URINE UROBILINOGEN NEGATIVE mg/dL (0.2-1.0)
[2018-08-07] MEDS ORDERED: METOPROLOL TARTRATE 5 MG/5 ML VIAL IVPUSH ONE (12:57)
[2018-08-07] MEDS ORDERED: METOPROLOL TARTRATE 5 MG/5 ML VIAL ONE (13:16)
--- NOTE | 2018-08-07 13:31 | HP ---
CHIEF COMPLAINT: SOB PCP: Dr. Granados HISTORY OF PRESENT ILLNESS: 53 y/o F with PMHx of HTN, Hypothyroidism, Asthma, Migraines and obesity was BIBEMS from home with SOB. Over the past few months, patient has been becoming increasingly short of breath. At 2 am, Patient woke from sleep in extreme shortness of breath accompanied by chest tightness. She describes the chest tightness as mid-sternal, 101 worse with breathing and lying flat, and improves with sitting up. Patient Drank Tea, turned on her air conditioner, and tried her home dose Nebulizers with no relief, at which point she called for EMS. Patient usually uses 4 pillows to sleep however over the past few days, she has been either using 7 pillows to sleep. She additionally mentions a decreased exercise tolerance; in the past she was able to walk 8 blocks however over the past few days she hasnt even been able to complete 1 block. She is compliant with a low salt diet and has not had any recent medication changes. Patient admits she has poor compliance with medications; She does not routinely take her home HTN meds, but admits to taking them when she experiences headache or blurry vision. Earlier this year prior to her DnC, she underwent a cardiac workup including Echo and tredmill stress test (unable to complete) which she says were all normal. She was told by her PCP at that time that she needs to follow with a immigration coordinator but has not done so. Additionally she endorses Blurry vision, Stiff neck, tinnitus. Has not had a flu shot this year. ER course was notable for: (1) CTA (2) Prednisone, Lasix (3) Azithromycin, Ceftriaxone Recent Travel: Denies PAST MEDICAL HISTORY: HTN Hypothyroidism Asthma Migraines Obesity PAST SURGICAL HISTORY: DnC x 2 Rib surgery Forehead Cyst removal Social History: Smoking: Quit 8 years; 2 ppd x 30 years before this Alcohol: Social Drugs: Denies Ambulation: Without assistance Occupation: [employer] Residence: At home with family Family History: Father: Pacemaker, Bypass surgery, from CHF Mother: HTN HLD Family has hx of Breast cancer and asthma Allergies morphine Adverse Reaction (Intermediate, Verified 06/03/18 12:11) Itching HOME MEDICATIONS: Home Medications Medication Instructions Recorded Lisinopril [Prinivil] 20 mg PO DAILY 09/13/17 Albuterol Sulfate Inhaler - 1 puff IH BID 06/03/18 [Ventolin Hfa Inhaler -] Fluticasone/Salmeterol [Advair 1 each IH BID 06/03/18 250-50 Diskus] Levothyroxine [Synthroid -] 50 mcg PO DAILY 08/07/18 REVIEW OF SYSTEMS As per [facility] PHYSICAL EXAMINATION Vital Signs - 24 hr 08/07/18 08/07/18 08/07/18 08:48 08:56 09:24 Temperature 98.0 F Pulse Rate 107 H 107 H Pulse Rate [ 95 H Apical] Respiratory 20 22 H Rate Blood Pressure 178/135 H Blood Pressure 157/114 H [Right] O2 Sat by Pulse 100 100 95 Oximetry (%) GENERAL: A&Ox3, NAD HEAD: NCAT EYES: PERRL, EOMI EARS, NOSE, THROAT: Oropharynx clear without exudates. Moist mucous membranes. NECK: No JVD LUNGS: Bilateral fine crackles, Able to speak in full sentences, via 2L NC HEART: RRR, normal S1 and S2 without murmur. ABDOMEN: Soft, nontender, not distended, + bowel sounds, no guarding MUSCULOSKELETAL: No CVA tenderness. EXTREMITIES: 2+ pulses, No calf tenderness. 1+ pitting edema. NEUROLOGICAL: Cranial nerves II-XII intact. Normal speech. SKIN: Warm, dry, no rashes or lesions noted, normal capillary refill. Laboratory Results - last 24 hr 08/07/18 08/07/18 08/07/18 09:00 09:00 09:00 WBC 8.5 RBC 3.84 Hgb 11.4 Hct 35.1 MCV 91.5 MCH 29.8 MCHC 32.6 RDW 14.2 Plt Count 243 MPV 8.0 Absolute Neuts (auto) 7.0 Neutrophils % 82.5 Lymphocytes % 11.7 D Monocytes % 4.5 Eosinophils % 0.9 Basophils % 0.4 Nucleated RBC % 0 PT with INR 11.70 INR 0.99 Sodium 141 Potassium 3.6 Chloride 110 H Carbon Dioxide 19 L Anion Gap 12 BUN 15 Creatinine 0.6 Creat Clearance w eGFR > 60 Random Glucose 107 H Calcium 8.9 Total Bilirubin 0.6 AST 52 H ALT 64 H Alkaline Phosphatase 84 Troponin I 0.03 B-Natriuretic Peptide 4957.5 H Total Protein 7.1 Albumin 3.2 L TSH 2.57 Urine Color Urine Appearance Urine pH Ur Specific [place] Urine Protein Urine Glucose (UA) Urine Ketones Urine Blood Urine Nitrite Urine Bilirubin Urine Urobilinogen Ur Leukocyte Esterase 08/07/18 12:40 WBC RBC Hgb Hct MCV MCH MCHC RDW Plt Count MPV Absolute Neuts (auto) Neutrophils % Lymphocytes % Monocytes % Eosinophils % Basophils % Nucleated RBC % PT with INR INR Sodium Potassium Chloride Carbon Dioxide Anion Gap BUN Creatinine Creat Clearance w eGFR Random Glucose Calcium Total Bilirubin AST ALT Alkaline Phosphatase Troponin I B-Natriuretic Peptide Total Protein Albumin TSH Urine Color Straw Urine Appearance Clear Urine pH 6.0 Ur Specific [place] 1.039 H Urine Protein Negative Urine Glucose (UA) Negative Urine Ketones Negative Urine Blood Negative Urine Nitrite Negative Urine Bilirubin Negative Urine Urobilinogen Negative Ur Leukocyte Esterase Negative IMAGING: -EKG: SINUS TACHYCARDIA WITH PREMATURE ATRIAL COMPLEXES, NONSPECIFIC T WAVE ABNORMALITY, VR 110, QTc 468 -CXR: Segmental left lower lobe infiltrate. -Chest CTA: No evidence of pulmonary embolism. Moderate bilateral pleural effusions with areas of atelectasis bilaterally. Cardiomegaly and small pericardial effusion. ASSESSMENT/PLAN: 53 y/o F with PMHx of HTN, Hypothyroidism, Asthma, Migraines and obesity was BIBEMS from home with SOB. #New Onset CHF -Likely due to long standing HTN with poor medication compliance -BNP 4958 -Echo Pending -Given 1 dose Lasix 40mg in ED, Continue daily -Cardiology (Dr. Burton) consulted -I&Os, Daily weights #Chest Tightness -Likely due to congestion from New Onset CHF; R/O ACS -Trops 0.03 -EKG noted above -Trend Trops and EKG #Transaminitis -Likely due to Liver congestion -Continue to monitor #Hypertensive Urgency -Will attempt to decrease BP 20% in first hours -Resume Home dose Lisinopril #Hx of Hypothyroidism -TSH 3.57 -Continue home dose Synthroid #PPx -DVT: Lovenox Dispo: Admit to tele Visit type - Emergency Visit Emergency Visit: Yes ED Registration Date: 08/07/18 Care time: The patient presented to the Emergency Department on the above date and was hospitalized for further evaluation of their emergent condition. - New Patient This patient is new to me today: Yes Date on this admission: 08/07/18 - Critical Care Critical Care patient: No
--- NOTE | 2018-08-07 14:48 | EKG ---
Test Reason : Blood Pressure : / mmHG Vent. Rate : 110 BPM Atrial Rate : 110 BPM P-R Int : 138 ms QRS Dur : 086 ms QT Int : 346 ms P-R-T Axes : 037 025 114 degrees QTc Int : 468 ms POOR DATA QUALITY, INTERPRETATION MAY BE ADVERSELY AFFECTED SINUS TACHYCARDIA WITH PREMATURE ATRIAL COMPLEXES NONSPECIFIC T WAVE ABNORMALITY ABNORMAL ECG WHEN COMPARED WITH ECG OF 04-JAN-2017 09:26, PREMATURE ATRIAL COMPLEXES ARE NOW PRESENT VENT. RATE HAS INCREASED BY 48 BPM NONSPECIFIC T WAVE ABNORMALITY NOW EVIDENT IN ANTEROLATERAL LEADS Confirmed by STEPHANIE COONEY MD ([id number]) on 08/07/2018 2:48:26 PM Referred By: Confirmed By:STEPHANIE COONEY MD
[2018-08-07 14:52] VITALS: BMI 32.9
[2018-08-07] MEDS ORDERED: FLU VACCINE QUAD 60 MCG/0.5 ML (MDV 18-19) IM ONE (14:52)
--- NOTE | 2018-08-07 14:54 | CON.CARD ---
Consult Consult Specialty:: Cardiology Referred by:: Evelyn Reason for Consultation:: CHF - History of Present Illness Chief Complaint: shortness of breath History of Present Illness: 53F h/o HTN, hypothyroidism, asthma, obesity p/w dyspnea and orthopnea. Woke up at 2 AM with short of breath, chest tightness, tried nebs without relief. Usually sleeps with 4 pillows, now with 7 pillows over last few days and has had decreased exercise tolerance, dyspnea on exertion wth a few blocks. Reportedly had normal echo and treadmill stress test that she could not complete earlier this year. In the ER BNP 4957, CTA chest no PE with mod bilateral pleural effusions and small pericardial effusion. Given IV lasix 20 mg x 1. Feels better now, still SOB, feels better sitting up. no prior history of CHF, had been told to see a application systems architect before but doesn't know why. - Past Medical History Cardio/Vascular: Yes: HTN Pulmonary: Yes: Asthma Gastrointestinal: Yes: Ulcerative Colitis ...LMP: 08/08/17 - Past Surgical History Past Surgical History: Yes: Tubal Ligation - Alcohol/Substance Use Hx Alcohol Use: No History of Substance Use: reports: None - Smoking History Smoking history: Former smoker Have you smoked in the past 12 months: No Aproximately how many cigarettes per day: 2 If you are a former smoker, when did you quit?: 12 years ago - Social History ADL: Independent History of Recent Travel: No Home Medications - Allergies Allergies/Adverse Reactions: Allergies Allergy/AdvReac Type Severity Reaction Status Date / Time morphine AdvReac Intermediate Itching Verified 06/03/18 12:11 - Home Medications Home Medications: Ambulatory Orders Lisinopril [Prinivil] 20 mg PO DAILY 09/13/17 Albuterol Sulfate Inhaler - [Ventolin Hfa Inhaler -] 1 puff IH BID 06/03/18 Fluticasone/Salmeterol [Advair 250-50 Diskus] 1 each IH BID 06/03/18 Levothyroxine [Synthroid -] 50 mcg PO DAILY 08/07/18 Family Disease History - Family Disease History Family Disease History: Diabetes: Mother, Heart Disease: Father (renal failure) , Other: Father Review of Systems - Review of Systems Constitutional: reports: No Symptoms Eyes: reports: No Symptoms HENT: reports: No Symptoms Neck: reports: No Symptoms Cardiovascular: reports: Shortness of Breath Respiratory: reports: Orthopnea, SOB on Exertion Gastrointestinal: reports: No Symptoms Genitourinary: reports: No Symptoms Musculoskeletal: reports: No Symptoms Integumentary: reports: No Symptoms Neurological: reports: No Symptoms Endocrine: reports: No Symptoms Hematology/Lymphatic: reports: No Symptoms Psychiatric: reports: No Symptoms Vital Signs: Vital Signs Temperature 98.0 F 08/07/18 08:48 Pulse Rate 86 08/07/18 13:52 Respiratory Rate 18 08/07/18 13:52 Blood Pressure 152/105 H 08/07/18 13:52 O2 Sat by Pulse Oximetry (%) 100 08/07/18 13:52 Constitutional: Yes: No Distress, Calm Eyes: Yes: Conjunctiva Clear, EOM Intact HENT: Yes: Atraumatic, Normocephalic Neck: Yes: Supple, Trachea Midline Respiratory: Yes: Regular, CTA Bilaterally (dec breath sounds at bases) Gastrointestinal: Yes: Normal Bowel Sounds, Soft Renal/: Yes: WNL Cardiovascular: Yes: Regular Rate and Rhythm JVD: Yes Carotid Bruit: No Heart Sounds: Yes: S1, S2 Musculoskeletal: Yes: WNL Extremities: Yes: WNL Edema: Yes Edema: LLE: 1+, RLE: 1+ Peripheral Pulses: 2+ Left Doralis Pedis, 2+ Right Dorsalis Pedis Integumentary: Yes: WNL Neurological: Yes: Alert, Oriented ...Motor Strength: WNL Psychiatric: Yes: Alert, Oriented - Other Data Labs, Other Data: CBC, BMP 08/07/18 09:00 08/07/18 09:00 INR, PTT INR 0.99 (0.83-1.09) 08/07/18 09:00 Troponin, BNP 08/07/18 09:00 Troponin I 0.03 B-Natriuretic Peptide 4957.5 H Troponin, BNP 08/07/18 09:00 Troponin I 0.03 B-Natriuretic Peptide 4957.5 H Assessment/Plan CTA chest no PE, small pericardial effusion, mod brennan pleural effusions EKG: sinus tachy, PACs tele: sinus, PVCs Heart failure exacerbation, shortness of breath, orthopnea - elevated BNP, pleural effusions on CTA chest - EF not known, echo pending - received lasix 20 mg IV x 1 - continue lasix 40 mg IV BID - cont lisinopril - monitor Cr, daily standing weights, strict I/O monitoring HTN - elevated in ER, BP improving received IV metoprolol - has a history of difficult to control BP per patient, has tried multiple meds with intolerance in the past - cont home lisinopril, not taken yet today hypothyroidism - manage per primary team
[2018-08-07] MEDS ORDERED: FUROSEMIDE 40 MG/4 ML INJECTABLE VIAL IVPUSH ONE (15:14)
--- NOTE | 2018-08-07 15:24 | PN ---
Teaching Attending Note Name of Resident: Denisse Martinez ATTENDING PHYSICIAN STATEMENT I saw and evaluated the patient. I reviewed the resident's note and discussed the case with the resident. I agree with the resident's findings and plan as documented. CC: SOB HPI: 53 y/o lady with h/o HTN, hypothyroidism, asthma, obesity and migraines, who presented with SOB x 3 days . for the past 3 weeks she has been having orthopnea and needed 7 pillows to sleep on at night. normally she sleeps on 4. no change in diet, or meds. she reports not being compliant with her Bp , and taking her lisinopril as needed when she has GONZALES. recently in she had an echo prior to [employer] procedure, and was told ( normal). she could not finish a routine stress test due to anxiety. she denies exertional CP , but has tightness x 3 days now. her sx are different form her asthma OBJECTIVE: AND , AAOx3. HEENT: no facial droop, EOMI, MMM. CV: RRR, no MRG , no JVD Lungs decreased breath sounds at bases , no crackles Ext : fullness in ankles otherwise no pitting edema. varicose veins. abd : soft, NT, ND , obese, no hepatojugular reflux Neuro : no facial droop. EOMI, tongue at mid line. round equa pupils , reactive to light strength 5/5 in upper an lower extremities proximally and distally EKG, CXray, CTA reviewed. ASSESSMENT AND PLAN: 53 y/o lady with h/o HTN, hypothyroidism, asthma, obesity and migraines, who presented with SOB x 3 days . 1- SOB : due to Acute heart failure. likely diastolic given her longstanding uncontrolled HTN. No concern for ACS. EKG with TWI in V4-6. Nl trop. - start lasix 40 IV daily - echo pending - hold off BB until type of heart failure is identified - cont her lisinopril - I&O , weight - no clinical evidence of PNA . will not continue Abx given in ER 2- HTN urgency: due to non compliance with meds - will slowly decrease BP . - resume home lisinopril 3- Mild transaminitis: likely due ot liver congestion. monitor 4- h/o Hypothyroidism, confirm and resume her home dose. TSH 3.5 5- DVT Px HLOC
[2018-08-07] MEDS ORDERED: LISINOPRIL 20 MG TABLET (FP) PO ONE (15:56)
--- NOTE | 2018-08-07 15:56 | EKG ---
Test Reason : Blood Pressure : / mmHG Vent. Rate : 091 BPM Atrial Rate : 091 BPM P-R Int : 156 ms QRS Dur : 088 ms QT Int : 440 ms P-R-T Axes : 030 017 062 degrees QTc Int : 541 ms NORMAL SINUS RHYTHM T WAVE ABNORMALITY, CONSIDER ANTEROLATERAL ISCHEMIA PROLONGED QT ABNORMAL ECG WHEN COMPARED WITH ECG OF 07-AUG-2018 08:39, PREMATURE ATRIAL COMPLEXES ARE NO LONGER PRESENT T WAVE INVERSION NOW EVIDENT IN ANTERIOR LEADS QT HAS LENGTHENED Confirmed by STEPHANIE COONEY MD ([id number]) on 08/07/2018 3:56:15 PM Referred By: JAH MATHIS Confirmed By:STEPHANIE COONEY MD
[2018-08-07] MEDS: MELATONIN 5 MG TABLETS PO SCH (22:08)
[2018-08-08] MEDS: FUROSEMIDE 40 MG/4 ML INJECTABLE VIAL IVPUSH SCH ×2 (05:37→15:14)
[2018-08-08] MEDS: ALBUTEROL SO4 0.083% IH SOL 2.5 MG/3 ML VIAL.NEB. NEB PRN ×2 (06:00→14:30)
[2018-08-08 07:04] LABS: BASO % 0.3 % (0-2.0); EOS % 1.1 % (0-4.5); HEMATOCRIT 36.3 % (32.4-45.2); HEMOGLOBIN 11.7 GM/dL (10.7-15.3); MCH 29.5 pg (25.7-33.7); MCHC 32.3 g/dl (32.0-36.0); MEAN CELL VOLUME 91.1 fl (80-96); MEAN PLT VOLUME 8.2 fl (7.5-11.1); MONO % 6.2 % (3.8-10.2); NEUT % 69.4 % (42.8-82.8); PLATELET COUNT 264 K/MM3 (134-434); RBC 3.99 M/mm3 (3.60-5.2); RDW 14.5 % (11.6-15.6); WHITE BLOOD COUNT 8.9 K/mm3 (4.0-10.0)
[2018-08-08 08:01] LABS: ALBUMIN 3.3 g/dl (3.4-5.0); ALK PHOS 73 U/L (45-117); ANION GAP 12 MMOL/L (8-16); BILIRUBIN,TOTAL 0.6 mg/dL (0.2-1); BLOOD UREA NITROGEN 15 mg/dL (7-18); CALCIUM 9.3 mg/dL (8.5-10.1); CHLORIDE 105 mmol/L (98-107); CHOLESTEROL 230 mg/dL (50-200); CO2 22 mmol/L (21-32); CREATININE 0.8 mg/dL (0.55-1.3); GLUCOSE,RANDOM 103 mg/dL (74-106); HDL CHOLESTEROL 63 mg/dL (40-60); MAGNESIUM 2.1 mg/dL (1.8-2.4); PHOSPHOROUS 3.7 mg/dL (2.5-4.9); POTASSIUM 3.4 mmol/L (3.5-5.1); SGOT/AST 29 U/L (15-37); SGPT/ALT 51 U/L (13-61); SODIUM 138 mmol/L (136-145); TOT PROT 7.4 g/dl (6.4-8.2); TRIGLYCERIDES 141 mg/dL (0-150)
[2018-08-08] MEDS: LISINOPRIL 20 MG TABLET (FP) PO SCH (09:35)
[2018-08-08] MEDS: ENOXAPARIN NA (PORCINE) 40 MG/0.4 ML DISP.SYRIN SQ SCH (09:35)
[2018-08-08] MEDS ORDERED: FUROSEMIDE 40 MG/4 ML INJECTABLE VIAL IVPUSH SCH (10:00)
--- NOTE | 2018-08-08 11:18 | PN ---
Progress Note (short form) - Note Progress Note: s: no cp palps dizzy; sob improving o: Vital Signs Period Temp Pulse Resp BP Sys/Sigala Pulse Ox Last 24 Hr 98 F-98.6 F 72-94 18-20 116-157/56-108 96-100 Constitutional: Yes: No Distress, Calm Eyes: Yes: Conjunctiva Clear Respiratory: Yes: Regular, CTA Bilaterally nl eff Gastrointestinal: Yes: Normal Bowel Sounds, Soft Cardiovascular: Yes: Regular Rate and Rhythm JVD: Yes Heart Sounds: Yes: S1, S2 Edema: trace le edema bl Integumentary: no jaundice diaphoresis Neurological: Yes: Alert, Oriented Current Medications Generic Name Dose Route Start Last Admin Trade Name Freq PRN Reason Stop Dose Admin Albuterol Sulfate 1 amp 08/08/18 05:34 08/08/18 06:00 Ventolin 0.083% Nebulizer Soln - NEB 1 amp Q8H PRN Administration SHORT OF BREATH/WHEEZING Enoxaparin Sodium 40 mg 08/08/18 10:00 08/08/18 09:35 Lovenox - SQ 40 mg DAILY FRANNIE Administration Furosemide 40 mg 08/08/18 06:00 08/08/18 05:37 Lasix Injection - IVPUSH 40 mg BID@0600,1400 FRANNIE Administration Lisinopril 20 mg 08/08/18 10:00 08/08/18 09:35 Prinivil PO 20 mg DAILY FRANNIE Administration Melatonin 10 mg 08/07/18 22:00 08/07/18 22:08 Melatonin PO 10 mg HS FRANNIE Administration CBC, BMP 08/08/18 05:30 08/08/18 05:30 Assessment/Plan CTA chest no PE, small pericardial effusion, mod brennan pleural effusions EKG: sinus tachy, PACs tele: sinus, occ PVCs acute heart failure exacerbation, shortness of breath, orthopnea - elevated BNP, pleural effusions on CTA chest - EF not known, echo pending - sxs improving, continue lasix 40 mg IV BID - cont lisinopril - monitor Cr, daily standing weights, strict I/O monitoring HTN -cont lisinopril hypothyroidism - manage per primary team
--- NOTE | 2018-08-08 12:49 | ECHO ---
Name: LAMBERT ALVAREZ Exam:Adult Echocardiogram Study Date: 08/07/2018 01:07 PM Age: 53 yrs Reason For Study: ASSESS LVF Height: 62 in Weight: 170 lb BSA: 1.8 m2 MMode/2D Measurements & Calculations IVSd: 0.98 cm Ao root diam: 2.6 cm LVIDd: 5.3 cm LA dimension: 3.9 cm LVIDs: 4.5 cm LVPWd: 0.94 cm EDV(Teich): 136.2 ml ESV(Teich): 92.0 ml Doppler Measurements & Calculations MV E max dany: 83.1 cm/sec Ao V2 max: 138.4 cm/sec MV A max dany: 75.8 cm/sec Ao max P.7 mmHg MV E/A: 1.1 MV dec time: 0.13 sec LV V1 max P.85 mmHg MR max dany: 389.8 cm/sec LV V1 max: 46.2 cm/sec MR max P.0 mmHg Med Peak E' Dany: 6.9 cm/sec Med E/e': 12.1 Lat Peak E' Dany: 4.2 cm/sec Lat E/e': 20.0 Left Ventricle Left ventricular systolic function is severely reduced. Ejection Fraction = 20-25%. There is severe g lobal hypokinesis of the left ventricle. Right Ventricle The right ventricle is not well visualized. Atria The left atrium is borderline dilated. Mitral Valve The mitral valve is grossly normal. There is no mitral valve stenosis. There is mild mitral regurgita tion. Tricuspid Valve The tricuspid valve is not well visualized, but is grossly normal. Aortic Valve No hemodynamically significant valvular aortic stenosis. No aortic regurgitation is present. Pulmonic Valve The pulmonic valve is not well seen, but is grossly normal. There is no pulmonic valvular stenosis. T here is no pulmonic valvular regurgitation. Great Vessels The aortic root is normal size. Pericardium/Pleura There is no pericardial effusion. Interpretation Summary There is severe global hypokinesis of the left ventricle. Left ventricular systolic function is severely reduced. Ejection Fraction = 20-25%. The left atrium is borderline dilated. There is mild mitral regurgitation. There is no pericardial effusion. MD Everette Reis 08/08/2018 12:48 PM
--- NOTE | 2018-08-08 13:50 | PN ---
Teaching Attending Note Name of Resident: Wilder Hartley ATTENDING PHYSICIAN STATEMENT I saw and evaluated the patient. I reviewed the resident's note and discussed the case with the resident. I agree with the resident's findings and plan as documented. SUBJECTIVE: No fever or chills . No CP but feels tightness. SOB is better. OBJECTIVE: AND, AAOx3. CV: RRR, no MRG, no JVD Lungs: CTB , decreased breath sounds at bases Ext: fullness in ankles otherwise no pitting edema. varicose veins. ASSESSMENT AND PLAN: 53 y/o lady with h/o HTN, hypothyroidism, asthma, obesity and migraines, who presented with SOB x 3 days . 1- Acute systolic CHF exacerbation: echo with severely reduces EF. - cont lasix BID - cont ACEI - avoid BB now , pending euvolemia. - etiology of CHF will need to be determined, might need a R/L heart cath . - monitor for arrhythmias. - correct electrolytes. - will d/w card the need for temporary life vest after dc 2- HTN urgency:improved - cont lisinopril 3- Mild transaminitis: likely due ot liver congestion.resolved 4- h/o Hypothyroidism. not quan meds at home but TSH is NL. f/u as outpt 5- DVT Px
[2018-08-08] MEDS ORDERED: ACETAMINOPHEN 325 MG TABLET (FP) ONE (15:09)
--- NOTE | 2018-08-08 19:50 | PN ---
Physical Exam: SUBJECTIVE: Patient seen and examined this morning at bedside. Experienced some chest tightness that improved with breathing treatment. No acute overnight events as per nursing. OBJECTIVE: Vital Signs Period Temp Pulse Resp BP Sys/Sigala Pulse Ox Last 24 Hr 98 F-98.6 F 72-88 18-20 115-149/56-90 96-96 GENERAL: A&Ox3, NAD HEAD: NCAT EYES: PERRL, EOMI ENT: Oropharynx clear without exudates. Moist mucous membranes. NECK: No JVD LUNGS: clear to auscultation bilaterally, no wheezes, via 2L NC HEART: RRR, normal S1 and S2 without murmur. ABDOMEN: Soft, nontender, not distended, + bowel sounds, no guarding EXTREMITIES: 2+ pulses, No peripheral edema. NEUROLOGICAL: Cranial nerves II-XII intact. Normal speech. SKIN: Warm, dry, no rashes or lesions noted Laboratory Results - last 24 hr 08/07/18 08/08/18 08/08/18 20:20 05:30 05:30 WBC 8.9 RBC 3.99 Hgb 11.7 Hct 36.3 MCV 91.1 MCH 29.5 MCHC 32.3 RDW 14.5 Plt Count 264 MPV 8.2 Absolute Neuts (auto) 6.2 Neutrophils % 69.4 Lymphocytes % 23.0 D Monocytes % 6.2 Eosinophils % 1.1 Basophils % 0.3 Nucleated RBC % 0 Sodium 138 Potassium 3.4 L Chloride 105 Carbon Dioxide 22 Anion Gap 12 BUN 15 Creatinine 0.8 Creat Clearance w eGFR > 60 Random Glucose 103 Calcium 9.3 Phosphorus 3.7 Magnesium 2.1 Total Bilirubin 0.6 AST 29 ALT 51 Alkaline Phosphatase 73 Troponin I < 0.02 Total Protein 7.4 Albumin 3.3 L Triglycerides 141 Cholesterol 230 H Total LDL Cholesterol 145 H HDL Cholesterol 63 H TSH 2.67 Microbiology 08/07/18 12:00 Blood - Peripheral Venous Blood Culture - Preliminary NO GROWTH OBTAINED AFTER 24 HOURS, INCUBATION TO CONTINUE FOR 4 DAYS. 08/07/18 12:00 Blood - Peripheral Venous Blood Culture - Preliminary NO GROWTH OBTAINED AFTER 24 HOURS, INCUBATION TO CONTINUE FOR 4 DAYS. 08/07/18 12:40 Urine - Urine Clean Catch Urine Culture - Final 08/07/18 15:30 Nasopharyngeal Swab Influenza Types A,B Antigen - Final 08/07/18 15:30 Nasopharyngeal Swab - Final Active Medications Albuterol Sulfate (Ventolin 0.083% Nebulizer Soln -) 1 amp NEB Q8H PRN PRN Reason: SHORT OF BREATH/WHEEZING Last Admin: 08/08/18 14:30 Dose: 1 amp Atorvastatin Calcium (Lipitor -) 40 mg PO HS [facility] Enoxaparin Sodium (Lovenox -) 40 mg SQ DAILY [facility] Last Admin: 08/08/18 09:35 Dose: 40 mg Furosemide (Lasix Injection -) 40 mg IVPUSH BID@0600,1400 [facility] Last Admin: 08/08/18 15:14 Dose: 40 mg Lisinopril (Prinivil) 20 mg PO DAILY [facility] Last Admin: 08/08/18 09:35 Dose: 20 mg Melatonin (Melatonin) 10 mg PO HS [facility] Last Admin: 08/07/18 22:08 Dose: 10 mg IMAGING: -EKG (08/07 @ 08:36): SINUS TACHYCARDIA WITH PREMATURE ATRIAL COMPLEXES, NONSPECIFIC T WAVE ABNORMALITY, VR 110, QTc 468 -EKG (08/07 @ 15:00): NORMAL SINUS RHYTHM, T WAVE ABNORMALITY, CONSIDER ANTEROLATERAL ISCHEMIA, PROLONGED QT, VR 91, QTc 541 -ECHO: Severe global hypokinesis of the LV, LV systoilc function is severely reduced, EF 20-25%, LA is boderline dilated, Mild MR, No pericardial effusion -CXR: Segmental left lower lobe infiltrate. -Chest CTA: No evidence of pulmonary embolism. Moderate bilateral pleural effusions with areas of atelectasis bilaterally. Cardiomegaly and small pericardial effusion. -DUPLEX: There is no evidence of deep venous thromboses in both lower extremities. ASSESSMENT/PLAN: 53 y/o F with PMHx of HTN, Hypothyroidism, Asthma, Migraines and obesity was BIBEMS from home with SOB. #New Onset CHF -ECHO: Severe global hypokinesis of the LV, EF 20-25% -BNP 4958 -Continue Lasix BID -Cardiology (Dr. Burton) consulted, Appreciate Rec's -I&Os, Daily weights #Chest Tightness -Likely due to congestion from New Onset CHF; R/O ACS -Trops and EKG noted #Transaminitis -Likely due to Liver congestion, Resolved #Hypertensive Urgency -Continue Home dose Lisinopril #Hx of Hypothyroidism -TSH 3.57 -Continue home dose Synthroid #PPx -DVT: Lovenox Dispo: Tele Visit type - Emergency Visit Emergency Visit: Yes ED Registration Date: 08/07/18 Care time: The patient presented to the Emergency Department on the above date and was hospitalized for further evaluation of their emergent condition. - New Patient This patient is new to me today: No - Critical Care Critical Care patient: No - Discharge Referral Referred to [facility] Med [facility] No
[2018-08-08] MEDS ORDERED: diphenhydrAMINE HCL 25 MG CAPSULE (FP) PO ONE (22:28)
[2018-08-08] MEDS: MELATONIN 5 MG TABLETS PO SCH (22:38)
[2018-08-08] MEDS: ATORVASTATIN CA 40 MG TABLET (FP) PO SCH (22:38)
[2018-08-09] MEDS: ALBUTEROL SO4 0.083% IH SOL 2.5 MG/3 ML VIAL.NEB. NEB PRN ×3 (02:28→21:56)
[2018-08-09] MEDS: FUROSEMIDE 40 MG/4 ML INJECTABLE VIAL IVPUSH SCH ×2 (06:30→13:12)
[2018-08-09 06:56] LABS: BASO % 0.4 % (0-2.0); HEMATOCRIT 34.3 % (32.4-45.2); HEMOGLOBIN 11.7 GM/dL (10.7-15.3); LYMPH % 29.3 % (8-40); MCH 31.4 pg (25.7-33.7); MCHC 34.1 g/dl (32.0-36.0); MEAN PLT VOLUME 8.1 fl (7.5-11.1); MONO % 9.3 % (3.8-10.2); PLATELET COUNT 256 K/MM3 (134-434); RBC 3.73 M/mm3 (3.60-5.2); RDW 14.5 % (11.6-15.6); WHITE BLOOD COUNT 7.1 K/mm3 (4.0-10.0)
[2018-08-09 07:11] LABS: ALBUMIN 3.1 g/dl (3.4-5.0); ALK PHOS 72 U/L (45-117); ANION GAP 8 MMOL/L (8-16); BILIRUBIN,TOTAL 0.3 mg/dL (0.2-1); BLOOD UREA NITROGEN 24 mg/dL (7-18); CHLORIDE 107 mmol/L (98-107); CO2 27 mmol/L (21-32); CREATININE 0.9 mg/dL (0.55-1.3); GLUCOSE,RANDOM 106 mg/dL (74-106); PHOSPHOROUS 4.6 mg/dL (2.5-4.9); POTASSIUM 3.7 mmol/L (3.5-5.1); SGOT/AST 20 U/L (15-37); SGPT/ALT 45 U/L (13-61); SODIUM 142 mmol/L (136-145); TOT PROT 6.8 g/dl (6.4-8.2)
[2018-08-09] MEDS: ENOXAPARIN NA (PORCINE) 40 MG/0.4 ML DISP.SYRIN SQ SCH (09:49)
[2018-08-09] MEDS: LISINOPRIL 20 MG TABLET (FP) PO SCH (09:49)
--- NOTE | 2018-08-09 11:18 | PN ---
Progress Note (short form) - Note Progress Note: s: chest tightness, short of breath this morning. no edema, palps, dizziness o: Vital Signs Period Temp Pulse Resp BP Sys/Sigala Pulse Ox Last 24 Hr 98 F-98.2 F 71-88 18-20 115-123/76-87 96-96 Constitutional: Yes: No Distress, Calm Eyes: Yes: Conjunctiva Clear Respiratory: Yes: Regular, CTA Bilaterally nl eff Gastrointestinal: Yes: Normal Bowel Sounds, Soft Cardiovascular: Yes: Regular Rate and Rhythm JVD: Yes Heart Sounds: Yes: S1, S2 Edema: trace le edema bl Integumentary: no jaundice diaphoresis Neurological: Yes: Alert, Oriented Assessment/Plan CTA chest no PE, small pericardial effusion, mod brennan pleural effusions EKG: sinus tachy, PACs echo 08/2018 severe global hypokinesis of LV, EF 20-25%, LA bl dilated, mild MR tele: sinus, occ PVCs acute systolic heart failure exacerbation - elevated BNP, pleural effusions on CTA chest - EF 20-25%, new diagnosis - cardiac cath as outpatient for further evaluation - sxs improving, weight down, still has JVD, trace edema, some dyspnea continue lasix 40 mg IV BID - cont lisinopril, start metoprolol succinate 12.5 mg daily - monitor Cr, daily standing weights, strict I/O monitoring HTN -cont lisinopril HLD - lipid panel reviewed, continue statin hypothyroidism - manage per primary team
[2018-08-09] MEDS: POLYETHYLENE GLYCOL 3350 119 GM BTL PO SCH (13:12)
[2018-08-09] MEDS: DOCUSATE SODIUM 100 MG CAPSULE (FP) PO SCH ×2 (13:12→22:03)
[2018-08-09] MEDS: metoPROLOL SUCCINATE 25 MG TAB.SR.24H (FP) PO SCH (13:12)
[2018-08-09] MEDS: SENNOSIDES 8.6MG TABLET (FP) PO SCH ×2 (13:13→22:03)
--- NOTE | 2018-08-09 13:13 | PN ---
Physical Exam: SUBJECTIVE: Patient seen and examined this morning at bedside. Experienced some burning with urination. Also mentions has not had a BM in No acute overnight events as per nursing. OBJECTIVE: Vital Signs Period Temp Pulse Resp BP Sys/Sigala Pulse Ox Last 24 Hr 98 F-98.2 F 71-88 18-20 115-123/76-87 96-96 GENERAL: A&Ox3, NAD HEAD: NCAT EYES: PERRL, EOMI ENT: Oropharynx clear without exudates. Moist mucous membranes. NECK: No JVD LUNGS: clear to auscultation bilaterally, no wheezes, via 2L NC HEART: RRR, normal S1 and S2 without murmur. ABDOMEN: Soft, nontender, not distended, + bowel sounds, no guarding EXTREMITIES: 2+ pulses, No peripheral edema. NEUROLOGICAL: Cranial nerves II-XII intact. Normal speech. SKIN: Warm, dry, no rashes or lesions noted Laboratory Results - last 24 hr 08/09/18 08/09/18 05:30 05:30 WBC 7.1 RBC 3.73 Hgb 11.7 Hct 34.3 MCV 92.0 MCH 31.4 MCHC 34.1 RDW 14.5 Plt Count 256 MPV 8.1 Absolute Neuts (auto) 4.1 Neutrophils % 58.0 Lymphocytes % 29.3 D Monocytes % 9.3 Eosinophils % 3.0 D Basophils % 0.4 Nucleated RBC % 0 Sodium 142 Potassium 3.7 Chloride 107 Carbon Dioxide 27 Anion Gap 8 BUN 24 H Creatinine 0.9 Creat Clearance w eGFR > 60 Random Glucose 106 Calcium 9.0 Phosphorus 4.6 Magnesium 2.0 Total Bilirubin 0.3 AST 20 ALT 45 Alkaline Phosphatase 72 Total Protein 6.8 Albumin 3.1 L Microbiology 08/07/18 12:00 Blood - Peripheral Venous Blood Culture - Preliminary NO GROWTH OBTAINED AFTER 48 HOURS, INCUBATION TO CONTINUE FOR 3 DAYS. 08/07/18 12:00 Blood - Peripheral Venous Blood Culture - Preliminary NO GROWTH OBTAINED AFTER 48 HOURS, INCUBATION TO CONTINUE FOR 3 DAYS. 08/07/18 12:40 Urine - Urine Clean Catch Urine Culture - Final 08/07/18 15:30 Nasopharyngeal Swab Influenza Types A,B Antigen - Final 08/07/18 15:30 Nasopharyngeal Swab - Final Active Medications Albuterol Sulfate (Ventolin 0.083% Nebulizer Soln -) 1 amp NEB Q8H PRN PRN Reason: SHORT OF BREATH/WHEEZING Last Admin: 08/09/18 02:28 Dose: 1 amp Atorvastatin Calcium (Lipitor -) 40 mg PO HS [facility] 234 BEDS AT [facility] Last Admin: 08/08/18 22:38 Dose: 40 mg Enoxaparin Sodium (Lovenox -) 40 mg SQ DAILY [facility]CLUDE 234 BEDS AT [facility] Last Admin: 08/09/18 09:49 Dose: 40 mg Furosemide (Lasix Injection -) 40 mg IVPUSH BID@0600,1400 [facility] 234 BEDS AT [facility] Last Admin: 08/09/18 06:30 Dose: 40 mg Lisinopril (Prinivil) 20 mg PO DAILY [facility] 234 BEDS AT [facility] Last Admin: 08/09/18 09:49 Dose: 20 mg Melatonin (Melatonin) 10 mg PO HS [facility] 234 BEDS AT [facility] Last Admin: 08/08/18 22:38 Dose: 10 mg Metoprolol Succinate (Toprol Xl -) 12.5 mg PO DAILY [facility]S [facility]CLUDE 234 BEDS AT [facility] IMAGING: -EKG (08/07 @ 08:36): SINUS TACHYCARDIA WITH PREMATURE ATRIAL COMPLEXES, NONSPECIFIC T WAVE ABNORMALITY, VR 110, QTc 468 -EKG (08/07 @ 15:00): NORMAL SINUS RHYTHM, T WAVE ABNORMALITY, CONSIDER ANTEROLATERAL ISCHEMIA, PROLONGED QT, VR 91, QTc 541 -ECHO: Severe global hypokinesis of the LV, LV systoilc function is severely reduced, EF 20-25%, LA is boderline dilated, Mild MR, No pericardial effusion -CXR: Segmental left lower lobe infiltrate. -Chest CTA: No evidence of pulmonary embolism. Moderate bilateral pleural effusions with areas of atelectasis bilaterally. Cardiomegaly and small pericardial effusion. -DUPLEX: There is no evidence of deep venous thromboses in both lower extremities. ASSESSMENT/PLAN: 53 y/o F with PMHx of HTN, Hypothyroidism, Asthma, Migraines and obesity was BIBEMS from home with SOB. #New Onset Sysolic Heart Failure -ECHO: Severe global hypokinesis of the LV, EF 20-25% -BNP 4958 -Continue Lasix BID -Started Metoprolol Sccinate Daily -Cardiology (Dr. Burton) consulted, Appreciate Rec's, Cardiac Cath Shortly after D/C, Recheck Echo for improvement in 3 months, -I&Os, Daily weights #Hypertensive Urgency -Continue Home dose Lisinopril -Started Metoprolol Sccinate Daily #Burning with Urination -UA Pending, Will treat accordingly #Constipation -Miralax, Colace, Senna #Chest Tightness -Likely due to congestion from New Onset CHF; R/O ACS -Trops and EKG noted #Transaminitis -Likely due to Liver congestion, Resolved #HLD -Continue Lipitor #Hx of Hypothyroidism -TSH 3.57 -Continue home dose Synthroid #PPx -DVT: Lovenox Dispo: Tele Visit type - Emergency Visit Emergency Visit: Yes ED Registration Date: 08/07/18 Care time: The patient presented to the Emergency Department on the above date and was hospitalized for further evaluation of their emergent condition. - New Patient This patient is new to me today: No - Critical Care Critical Care patient: No - Discharge Referral Referred to [facility] Med [facility] No
[2018-08-09 14:17] LABS: URINE APPEARANCE SLCLOUDY; URINE BILIRUBIN NEGATIVE (<2.0 mg/dL); URINE COLOR YELLOW; URINE GLUCOSE (UA) NEGATIVE (NEGATIVE); URINE KETONE NEGATIVE (NEGATIVE); URINE LEUK ESTERASE 1+ (NEGATIVE); URINE NITRITE NEGATIVE (NEGATIVE); URINE PROTEIN NEGATIVE (NEGATIVE); URINE UROBILINOGEN NEGATIVE mg/dL (0.2-1.0)
[2018-08-09 14:21] LABS: EPI CELLS MODERATE /HPF (FEW); URINE BACTERIA RARE /hpf (NONE SEEN); URINE HYALINE CAST 1 /lpf; URINE MUCUS RARE
--- NOTE | 2018-08-09 14:28 | PN ---
Teaching Attending Note Name of Resident: Denisse Martinez ATTENDING PHYSICIAN STATEMENT I saw and evaluated the patient. I reviewed the resident's note and discussed the case with the resident. I agree with the resident's findings and plan as documented. SUBJECTIVE: No fever or chills . SOB is better . cough. no cp , LE edema improved . has dysuria today and constipation OBJECTIVE: AND, AAOx3. CV: RRR, no MRG, no JVD Lungs: CTAB , decreased breath sounds at bases Ext:No LE edema ASSESSMENT AND PLAN: 53 y/o lady with h/o HTN, hypothyroidism, asthma, obesity and migraines, who presented with SOB x 3 days . 1- Acute systolic CHF exacerbation: echo with severely reduces EF. - cont lasix BID - cont ACEI. BB added - R/L heart cath as out pt . - monitor for arrhythmias. tele with one episode of SVT - will d/w card the need for temporary life vest after dc 2- HTN - cont lisinopril . BB added 3- Mild transaminitis: due to liver congestion.resolved 4- h/o Hypothyroidism. not taking meds at home but TSH is NL. f/u as outpt 5- check UA for dysuria and treat constipation 6- DVT Px
[2018-08-09] MEDS ORDERED: diphenhydrAMINE HCL 25 MG CAPSULE (FP) PO ONE (21:49)
[2018-08-09] MEDS: MELATONIN 5 MG TABLETS PO SCH (22:03)
[2018-08-09] MEDS: ATORVASTATIN CA 40 MG TABLET (FP) PO SCH (22:03)
[2018-08-10] MEDS: DOCUSATE SODIUM 100 MG CAPSULE (FP) PO SCH ×3 (07:06→21:59)
[2018-08-10] MEDS: FUROSEMIDE 40 MG/4 ML INJECTABLE VIAL IVPUSH SCH ×2 (07:06→13:48)
[2018-08-10] MEDS: ALBUTEROL SO4 0.083% IH SOL 2.5 MG/3 ML VIAL.NEB. NEB PRN ×2 (07:30→15:27)
[2018-08-10] MEDS: metoPROLOL SUCCINATE 25 MG TAB.SR.24H (FP) PO SCH (09:52)
[2018-08-10] MEDS: SENNOSIDES 8.6MG TABLET (FP) PO SCH ×2 (09:53→21:59)
[2018-08-10] MEDS: LISINOPRIL 20 MG TABLET (FP) PO SCH (09:53)
[2018-08-10] MEDS: ENOXAPARIN NA (PORCINE) 40 MG/0.4 ML DISP.SYRIN SQ SCH (09:53)
[2018-08-10] MEDS: POLYETHYLENE GLYCOL 3350 119 GM BTL PO SCH (09:53)
--- NOTE | 2018-08-10 11:21 | PN ---
Progress Note (short form) - Note Progress Note: s: walking down the butcher without dyspnea. complains of orthopnea, but is anxious to lie down fully given h/o shortness of breath. no edema, palps, dizziness o: Current Medications Albuterol Sulfate (Ventolin 0.083% Nebulizer Soln -) 1 amp NEB Q8H PRN PRN Reason: SHORT OF BREATH/WHEEZING Last Admin: 08/10/18 07:30 Dose: 1 amp Atorvastatin Calcium (Lipitor -) 40 mg PO HS [facility] Last Admin: 08/09/18 22:03 Dose: 40 mg Docusate Sodium (Colace -) 100 mg PO TID [facility] Last Admin: 08/10/18 07:06 Dose: 100 mg Enoxaparin Sodium (Lovenox -) 40 mg SQ DAILY [facility] Last Admin: 08/10/18 09:53 Dose: 40 mg Furosemide (Lasix Injection -) 40 mg IVPUSH BID@0600,1400 [facility] Last Admin: 08/10/18 07:06 Dose: 40 mg Lisinopril (Prinivil) 20 mg PO DAILY [facility] Last Admin: 08/10/18 09:53 Dose: 20 mg Melatonin (Melatonin) 10 mg PO HS [facility] Last Admin: 08/09/18 22:03 Dose: 10 mg Metoprolol Succinate (Toprol Xl -) 12.5 mg PO DAILY [facility] Last Admin: 08/10/18 09:52 Dose: 12.5 mg Polyethylene Glycol (Miralax (For Daily Use) -) 17 gm PO DAILY [facility] Last Admin: 08/10/18 09:53 Dose: 17 grams Senna (Senna -) 1 tab PO BID [facility] Last Admin: 08/10/18 09:53 Dose: 1 tab Vital Signs Period Temp Pulse Resp BP Sys/Sigala Pulse Ox Last 24 Hr 98 F-98.4 F 71-87 18-20 110-135/63-90 98-98 Constitutional: Yes: No Distress, Calm Eyes: Yes: Conjunctiva Clear Respiratory: Yes: Regular, CTA Bilaterally nl eff Gastrointestinal: Yes: Normal Bowel Sounds, Soft Cardiovascular: Yes: Regular Rate and Rhythm JVD: No Heart Sounds: Yes: S1, S2 Edema: trace le edema bl Integumentary: no jaundice diaphoresis Neurological: Yes: Alert, Oriented Assessment/Plan CTA chest no PE, small pericardial effusion, mod brennan pleural effusions EKG: sinus tachy, PACs echo 08/2018 severe global hypokinesis of LV, EF 20-25%, LA bl dilated, mild MR tele: sinus, occ PVCs acute systolic heart failure exacerbation - elevated BNP, pleural effusions on CTA chest - EF 20-25%, new diagnosis - cardiac cath as outpatient for ischemic evaluation. would not recommend life vest at this point - cont lisinopril, metoprolol succinate 12.5 mg daily - monitor Cr, daily standing weights, strict I/O monitoring - sxs improving, weight down, Cr stable with BUN rising. cont lasix 40 mg IV BID for now, may be able to transition to PO tomorrow as patient is ambulating without dyspnea, exam improving, however still complaining of orthopnea HTN -cont lisinopril HLD - lipid panel reviewed, continue statin hypothyroidism - manage per primary team
[2018-08-10] MEDS ORDERED: ACETAMINOPHEN 500 MG TABLET (FP) PO ONE (14:15)
--- NOTE | 2018-08-10 14:33 | PN ---
Progress Note (short form) - Note Progress Note: Subjective: no fever or chills. SOB is better . Objective: Vital Signs: Last Vital Signs Temp Pulse Resp BP Pulse Ox 97.1 F L 90 20 115/69 95 08/10/18 10:00 08/10/18 14:08 08/10/18 10:00 08/10/18 10:00 08/10/18 14:08 Physical Exam: OBJECTIVE: AND, AAOx3. CV: RRR, no MRG, no JVD Lungs: CTAB Ext: No LE edema ASSESSMENT AND PLAN: 53 y/o lady with h/o HTN, hypothyroidism, asthma, obesity and migraines, who presented with SOB x 3 days . 1- Acute systolic CHF exacerbation: echo with severely reduces EF. - cont lasix BID - cont ACEI and BB - R/L heart cath as out pt . - monitor for arrhythmias. - life vest after dc was d/w Card,. Repeat echo as out pt was recommended before deciding on that 2- HTN - cont lisinopril and BB 3- Mild transaminitis: due to liver congestion.resolved 4- h/o Hypothyroidism. not taking meds at home but TSH is NL. f/u as outpt 5- DVT Px Visit type - Emergency Visit Emergency Visit: Yes ED Registration Date: 08/07/18 Care time: The patient presented to the Emergency Department on the above date and was hospitalized for further evaluation of their emergent condition. - New Patient This patient is new to me today: No - Critical Care Critical Care patient: No
[2018-08-10] MEDS ORDERED: PT OWN MED DRAWER 7, Y5N ONE (21:48)
[2018-08-10] MEDS: ATORVASTATIN CA 40 MG TABLET (FP) PO SCH (21:59)
[2018-08-10] MEDS: MELATONIN 5 MG TABLETS PO SCH (21:59)
[2018-08-11] MEDS: ALBUTEROL SO4 0.083% IH SOL 2.5 MG/3 ML VIAL.NEB. NEB PRN ×3 (00:07→17:39)
[2018-08-11] MEDS: DOCUSATE SODIUM 100 MG CAPSULE (FP) PO SCH ×3 (05:57→21:11)
[2018-08-11] MEDS: FUROSEMIDE 40 MG/4 ML INJECTABLE VIAL IVPUSH SCH ×2 (05:57→14:16)
[2018-08-11 06:56] LABS: ANION GAP 6 MMOL/L (8-16); BLOOD UREA NITROGEN 26 mg/dL (7-18); CALCIUM 9.1 mg/dL (8.5-10.1); CHLORIDE 105 mmol/L (98-107); CO2 28 mmol/L (21-32); GLUCOSE,RANDOM 122 mg/dL (74-106); POTASSIUM 3.9 mmol/L (3.5-5.1); SODIUM 139 mmol/L (136-145)
--- NOTE | 2018-08-11 09:42 | PN ---
Progress Note, Physician Chief Complaint: sob History of Present Illness: sob definitely improved vs home (was severe) but remains orthopneic and sleeping sitting almost upright. no cp no palpit, leg swelling severe GONZALES began yest, nausea too denies regular etoh, drugs - Current Medication List Current Medications: Active Medications Albuterol Sulfate (Ventolin 0.083% Nebulizer Soln -) 1 amp NEB Q8H PRN PRN Reason: SHORT OF BREATH/WHEEZING Last Admin: 08/11/18 06:01 Dose: 1 amp Atorvastatin Calcium (Lipitor -) 40 mg PO HS [facility] Last Admin: 08/10/18 21:59 Dose: 40 mg Docusate Sodium (Colace -) 100 mg PO TID [facility] Last Admin: 08/11/18 05:57 Dose: 100 mg Enoxaparin Sodium (Lovenox -) 40 mg SQ DAILY [facility] Last Admin: 08/10/18 09:53 Dose: 40 mg Furosemide (Lasix Injection -) 40 mg IVPUSH BID@0600,1400 [facility] Last Admin: 08/11/18 05:57 Dose: 40 mg Lisinopril (Prinivil) 20 mg PO DAILY [facility] Last Admin: 08/10/18 09:53 Dose: 20 mg Melatonin (Melatonin) 10 mg PO [facility] Last Admin: 08/10/18 21:59 Dose: 10 mg Metoprolol Succinate (Toprol Xl -) 12.5 mg PO DAILY [facility] Last Admin: 08/10/18 09:52 Dose: 12.5 mg Polyethylene Glycol (Miralax (For Daily Use) -) 17 gm PO DAILY [facility] Last Admin: 08/10/18 09:53 Dose: 17 grams Senna (Senna -) 1 tab PO BID [facility] Last Admin: 08/10/18 21:59 Dose: Not Given - Objective Vital Signs: Vital Signs Temperature 98.1 F 08/11/18 05:00 Pulse Rate 78 08/11/18 05:00 Respiratory Rate 78 H 08/11/18 05:00 Blood Pressure 126/80 08/11/18 05:00 O2 Sat by Pulse Oximetry (%) 96 08/10/18 21:00 Constitutional: Yes: No Distress, Calm Eyes: No: Sclera Icterus HENT: No: Nasal Congestion Cardiovascular: Yes: Regular Rate and Rhythm, S1, S2, Other (PMI non diplaced). No: JVD, Gallop, Murmur Respiratory: Yes: CTA Bilaterally. No: Accessory Muscle Use, Rales, Wheezes Gastrointestinal: Yes: Normal Bowel Sounds, Soft. No: Tenderness Musculoskeletal: Yes: Other (No kyphosis) Extremities: No: Cyanosis Edema: No Integumentary: No: Jaundice Neurological: Yes: Alert, Oriented (x3) Psychiatric: No: Agitated Labs: CBC, BMP 08/09/18 05:30 08/11/18 05:30 INR, PTT INR 0.99 (0.83-1.09) 08/07/18 09:00 Assessment/Plan CTA chest no PE, small pericardial effusion, mod brennan pleural effusions EKG: sinus tachy, PACs echo 08/2018 severe global hypokinesis of LV, EF 20-25%. RV tds. LA bl dilated. mild MR tele: NSR acute systolic heart failure exacerbation - elevated BNP, pleural effusions on CTA chest - EF 20-25%, new diagnosis--? etiology. no FH of CHF except father (early onset CAD/CABG). had not seen MD for several years prior to HTN dx approx 3 yrs ago-- ? hypertensive CMP. glucoses unremarkable. - cardiac cath as outpatient for ischemic evaluation. would not recommend life vest at this point - receiving lasix 40 mg IV BID here. - dry wt not known. was 182 on discharge 02/2017 admit here - 08/11: wt has come down 2 lbs with diuresis here, remains at 185. given moderate pleural effusions on admitting CT chest 08/07, doubt 2 lbs of diuresis has made significant headway--hence she is still c/o sob/orthopnea. increase diuretics (lasix 80 iv bid, for 2 doses today)--observe orthopnea, bp, wt and bun/creat response. (doubt will need inotropes for effective diuresis, does not appear low-output). - cont home lisinopril. - ? severe GONZALES from metoprolol 12.5 (started 1 day before sx onset), now worse today ? b/c increased dose to 25--d/c metoprolol for now. try carvedilol or bisoprolol later. - d/w'd pt, will plan to rule out CAD as inpatient (? transfer for L/RHC tomorrow) HTN -bp controlled -cont lisinopril HLD - lipid panel reviewed, continue statin. outpt f/u hypothyroidism - TSH normal
[2018-08-11] MEDS ORDERED: metoPROLOL SUCCINATE 25 MG TAB.SR.24H (FP) PO SCH (09:45)
[2018-08-11] MEDS: ENOXAPARIN NA (PORCINE) 40 MG/0.4 ML DISP.SYRIN SQ SCH (10:18)
[2018-08-11] MEDS: SENNOSIDES 8.6MG TABLET (FP) PO SCH ×2 (10:21→21:11)
[2018-08-11] MEDS: LISINOPRIL 20 MG TABLET (FP) PO SCH (10:21)
[2018-08-11] MEDS ORDERED: ACETAMINOPHEN/CAFFEINE/BUTALBITAL 1 TAB PO ONE (10:33)
[2018-08-11] MEDS: POLYETHYLENE GLYCOL 3350 119 GM BTL PO SCH (10:34)
--- NOTE | 2018-08-11 12:22 | PN ---
Teaching Attending Note Name of Resident: Denisse Martinez ATTENDING PHYSICIAN STATEMENT I saw and evaluated the patient. I reviewed the resident's note and discussed the case with the resident. I agree with the resident's findings and plan as documented. SUBJECTIVE: No fever or chills . No abd pain, has GONZALES , still has orthopnea but her SOB significantly improved OBJECTIVE: AND, AAOx3. CV: RRR, no MRG, no JVD Lungs: CTAB Ext: No LE edema ASSESSMENT AND PLAN: 53 y/o lady with h/o HTN, hypothyroidism, asthma, obesity and migraines, who presented with SOB x 3 days . 1- Acute systolic CHF exacerbation: - lasix increased per card - cont ACEI a. BB dc'd due to GONZALES . - PVCs on tele - plan for inpt cath and transfer to OSH tomorrow 2- HTN - cont lisinopril 3- Mild transaminitis: due to liver congestion.resolved 4- h/o Hypothyroidism. not taking meds at home but TSH is NL. f/u as outpt 5- GONZALES : hold BB and try fioricet . hold her home imitrix for now DVT Px
--- NOTE | 2018-08-11 20:25 | PN ---
Physical Exam: SUBJECTIVE: Patient seen and examined this morning at bedside. Feels SOB with laying flat. Continues to have Headaches. Denies any fevers, chills, chest pain , SOB, nausea, vomiting. OBJECTIVE: Vital Signs Period Temp Pulse Resp BP Sys/Sigala Pulse Ox Last 24 Hr 97.5 F-98.1 F 69-94 18-20 109-137/64-89 96-97 GENERAL: A&Ox3, NAD HEAD: NCAT EYES: PERRL, EOMI ENT: Oropharynx clear without exudates. Moist mucous membranes. NECK: No JVD LUNGS: clear to auscultation bilaterally, no wheezes, via 2L NC HEART: RRR, normal S1 and S2 without murmur. ABDOMEN: Soft, nontender, not distended, + bowel sounds, no guarding EXTREMITIES: 2+ pulses, No peripheral edema. NEUROLOGICAL: Cranial nerves II-XII intact. Normal speech. SKIN: Warm, dry, no rashes or lesions noted Laboratory Results - last 24 hr 08/11/18 05:30 Sodium 139 Potassium 3.9 Chloride 105 Carbon Dioxide 28 Anion Gap 6 L BUN 26 H Creatinine 1.0 Creat Clearance w eGFR 58.45 Random Glucose 122 H Calcium 9.1 Microbiology 08/07/18 12:00 Blood - Peripheral Venous Blood Culture - Preliminary NO GROWTH OBTAINED AFTER 96 HOURS, INCUBATION TO CONTINUE FOR 1 DAYS. 08/07/18 12:00 Blood - Peripheral Venous Blood Culture - Preliminary NO GROWTH OBTAINED AFTER 96 HOURS, INCUBATION TO CONTINUE FOR 1 DAYS. 08/07/18 12:40 Urine - Urine Clean Catch Urine Culture - Final 08/07/18 15:30 Nasopharyngeal Swab Influenza Types A,B Antigen - Final 08/07/18 15:30 Nasopharyngeal Swab - Final Active Medications Albuterol Sulfate (Ventolin 0.083% Nebulizer Soln -) 1 amp NEB Q8H PRN PRN Reason: SHORT OF BREATH/WHEEZING Last Admin: 08/11/18 17:39 Dose: 1 amp Atorvastatin Calcium (Lipitor -) 40 mg PO HS [facility] Last Admin: 08/10/18 21:59 Dose: 40 mg Docusate Sodium (Colace -) 100 mg PO TID [facility] Last Admin: 08/11/18 14:16 Dose: 100 mg Enoxaparin Sodium (Lovenox -) 40 mg SQ DAILY [facility] Last Admin: 08/11/18 10:18 Dose: 40 mg Furosemide (Lasix Injection -) 80 mg IVPUSH BID@0600,1400 [facility] Last Admin: 08/11/18 14:16 Dose: 80 mg Lisinopril (Prinivil) 20 mg PO DAILY [facility] Last Admin: 08/11/18 10:21 Dose: 20 mg Melatonin (Melatonin) 10 mg PO HS [facility] Last Admin: 08/10/18 21:59 Dose: 10 mg Polyethylene Glycol (Miralax (For Daily Use) -) 17 gm PO DAILY [facility] Last Admin: 08/11/18 10:34 Dose: 17 grams Senna (Senna -) 1 tab PO BID [facility] Last Admin: 08/11/18 10:21 Dose: 1 tab IMAGING: -EKG (08/07 @ 08:36): SINUS TACHYCARDIA WITH PREMATURE ATRIAL COMPLEXES, NONSPECIFIC T WAVE ABNORMALITY, VR 110, QTc 468 -EKG (08/07 @ 15:00): NORMAL SINUS RHYTHM, T WAVE ABNORMALITY, CONSIDER ANTEROLATERAL ISCHEMIA, PROLONGED QT, VR 91, QTc 541 -ECHO: Severe global hypokinesis of the LV, LV systoilc function is severely reduced, EF 20-25%, LA is boderline dilated, Mild MR, No pericardial effusion -CXR: Segmental left lower lobe infiltrate. -Chest CTA: No evidence of pulmonary embolism. Moderate bilateral pleural effusions with areas of atelectasis bilaterally. Cardiomegaly and small pericardial effusion. -DUPLEX: There is no evidence of deep venous thromboses in both lower extremities. ASSESSMENT/PLAN: 53 y/o F with PMHx of HTN, Hypothyroidism, Asthma, Migraines and obesity was BIBEMS from home with SOB. #New Onset Sysolic Heart Failure -ECHO: Severe global hypokinesis of the LV, EF 20-25% -BNP 4958 -Continue Lasix BID, increased to 80mg -Continue Metoprolol Sucinate, ACEi Daily -Cardiology (Dr. Burton) consulted, Appreciate Rec's -I&Os, Daily weights -Cardio to transfer for L/RHC tomorrow #Hypertensive Urgency -Continue Home dose Lisinopril -Started Metoprolol Sucinate Daily #Headache -Fioricet -Beta blockers held, Home dose imitrex held #Burning with Urination -UA Noted #Constipation -Miralax, Colace, Senna #Chest Tightness -Likely due to congestion from New Onset CHF; R/O ACS -Trops and EKG noted #Transaminitis -Likely due to Liver congestion, Resolved #HLD -Continue Lipitor #Hx of Hypothyroidism -TSH 3.57 -Continue home dose Synthroid #PPx -DVT: Lovenox Dispo: Cardio to transfer for L/RHC tomorrow Visit type - Emergency Visit Emergency Visit: Yes ED Registration Date: 08/07/18 Care time: The patient presented to the Emergency Department on the above date and was hospitalized for further evaluation of their emergent condition. - New Patient This patient is new to me today: No - Critical Care Critical Care patient: No - Discharge Referral Referred to [facility] Med P.C.: No
[2018-08-11] MEDS ORDERED: diphenhydrAMINE HCL 25 MG CAPSULE (FP) PO ONE (20:37)
[2018-08-11] MEDS: ATORVASTATIN CA 40 MG TABLET (FP) PO SCH (21:11)
[2018-08-11] MEDS: MELATONIN 5 MG TABLETS PO SCH ×2 (21:11→21:29)
[2018-08-12] MEDS: ALBUTEROL SO4 0.083% IH SOL 2.5 MG/3 ML VIAL.NEB. NEB PRN (05:03)
[2018-08-12] MEDS: DOCUSATE SODIUM 100 MG CAPSULE (FP) PO SCH (06:11)
[2018-08-12] MEDS: FUROSEMIDE 40 MG/4 ML INJECTABLE VIAL IVPUSH SCH (06:13)
[2018-08-12 07:38] LABS: ANION GAP 11 MMOL/L (8-16); BLOOD UREA NITROGEN 24 mg/dL (7-18); CALCIUM 9.9 mg/dL (8.5-10.1); CHLORIDE 102 mmol/L (98-107); CO2 26 mmol/L (21-32); CREATININE 0.9 mg/dL (0.55-1.3); GLUCOSE,RANDOM 95 mg/dL (74-106); MAGNESIUM 2.1 mg/dL (1.8-2.4); PHOSPHOROUS 3.9 mg/dL (2.5-4.9); SODIUM 139 mmol/L (136-145)
[2018-08-12 07:52] VITALS: BP 98/76; PULSE 75; TEMP 97.4
--- NOTE | 2018-08-12 07:55 | DS ---
Physical Exam: SUBJECTIVE: Patient was transferred to to [facility] for Cardiac cath before she could be seen or examined. OBJECTIVE: Vital Signs Period Temp Pulse Resp BP Sys/Sigala Pulse Ox Last 24 Hr 97.4 F-98.2 F 75-86 18-20 98-137/52-87 96-97 PHYSICAL EXAM Unable to exam as patient has been transferred prior to examination LABS Laboratory Last Values WBC 7.1 K/mm3 (4.0-10.0) 08/09/18 05:30 RBC 3.73 M/mm3 (3.60-5.2) 08/09/18 05:30 Hgb 11.7 GM/dL (10.7-15.3) 08/09/18 05:30 Hct 34.3 % (32.4-45.2) 08/09/18 05:30 MCV 92.0 fl (80-96) 08/09/18 05:30 MCH 31.4 pg (25.7-33.7) 08/09/18 05:30 MCHC 34.1 g/dl (32.0-36.0) 08/09/18 05:30 RDW 14.5 % (11.6-15.6) 08/09/18 05:30 Plt Count 256 K/MM3 (134-434) 08/09/18 05:30 MPV 8.1 fl (7.5-11.1) 08/09/18 05:30 Absolute Neuts (auto) 4.1 K/mm3 (1.5-8.0) 08/09/18 05:30 Neutrophils % 58.0 % (42.8-82.8) 08/09/18 05:30 Lymphocytes % 29.3 % (8-40) D 08/09/18 05:30 Monocytes % 9.3 % (3.8-10.2) 08/09/18 05:30 Eosinophils % 3.0 % (0-4.5) D 08/09/18 05:30 Basophils % 0.4 % (0-2.0) 08/09/18 05:30 Nucleated RBC % 0 % (0-0) 08/09/18 05:30 PT with INR 11.70 SEC (9.7-13.0) 08/07/18 09:00 INR 0.99 (0.83-1.09) 08/07/18 09:00 Sodium 139 mmol/L (136-145) 08/12/18 05:30 Potassium 4.0 mmol/L (3.5-5.1) 08/12/18 05:30 Chloride 102 mmol/L (98-107) 08/12/18 05:30 Carbon Dioxide 26 mmol/L (21-32) 08/12/18 05:30 Anion Gap 11 MMOL/L (8-16) 08/12/18 05:30 BUN 24 mg/dL (7-18) H 08/12/18 05:30 Creatinine 0.9 mg/dL (0.55-1.3) 08/12/18 05:30 Creat Clearance w eGFR > 60 (>60) 08/12/18 05:30 Random Glucose 95 mg/dL (74-106) 08/12/18 05:30 Lactic Acid 1.4 mmol/L (0.4-2.0) 08/07/18 12:00 Calcium 9.9 mg/dL (8.5-10.1) 08/12/18 05:30 Phosphorus 3.9 mg/dL (2.5-4.9) 08/12/18 05:30 Magnesium 2.1 mg/dL (1.8-2.4) 08/12/18 05:30 Total Bilirubin 0.3 mg/dL (0.2-1) 08/09/18 05:30 AST 20 U/L (15-37) 08/09/18 05:30 ALT 45 U/L (13-61) 08/09/18 05:30 Alkaline Phosphatase 72 U/L (45-117) 08/09/18 05:30 Troponin I < 0.02 ng/ml (0.00-0.05) 08/07/18 20:20 B-Natriuretic Peptide 4957.5 pg/ml (5-125) H 08/07/18 09:00 Total Protein 6.8 g/dl (6.4-8.2) 08/09/18 05:30 Albumin 3.1 g/dl (3.4-5.0) L 08/09/18 05:30 Triglycerides 141 mg/dL (0-150) 08/08/18 05:30 Cholesterol 230 mg/dL (50-200) H 08/08/18 05:30 Total LDL Cholesterol 145 mg/dL (5-100) H 08/08/18 05:30 HDL Cholesterol 63 mg/dL (40-60) H 08/08/18 05:30 TSH 2.67 uIU/ml (0.358-3.74) 08/08/18 05:30 Urine Color Yellow 08/09/18 13:50 Urine Appearance Slcloudy 08/09/18 13:50 Urine pH 6.0 (5.0-8.0) 08/09/18 13:50 Ur Specific [place] 1.017 (1.010-1.035) 08/09/18 13:50 Urine Protein Negative (NEGATIVE) 08/09/18 13:50 Urine Glucose (UA) Negative (NEGATIVE) 08/09/18 13:50 Urine Ketones Negative (NEGATIVE) 08/09/18 13:50 Urine Blood Negative (NEGATIVE) 08/09/18 13:50 Urine Nitrite Negative (NEGATIVE) 08/09/18 13:50 Urine Bilirubin Negative (<2.0 mg/dL) 08/09/18 13:50 Urine Urobilinogen Negative mg/dL (0.2-1.0) 08/09/18 13:50 Ur Leukocyte Esterase 1+ (NEGATIVE) H 08/09/18 13:50 Urine WBC (Auto) 6 /hpf (3-5) 08/09/18 13:50 Urine RBC (Auto) 1 /hpf (0-3) 08/09/18 13:50 Ur Epithelial Cells Moderate /HPF (FEW) 08/09/18 13:50 Urine Bacteria Rare /hpf (NONE SEEN) 08/09/18 13:50 Hyaline Casts 1 /lpf 08/09/18 13:50 Urine Mucus Rare 08/09/18 13:50 Microbiology 08/07/18 12:00 Blood - Peripheral Venous Blood Culture - Preliminary NO GROWTH OBTAINED AFTER 96 HOURS, INCUBATION TO CONTINUE FOR 1 DAYS. 08/07/18 12:00 Blood - Peripheral Venous Blood Culture - Preliminary NO GROWTH OBTAINED AFTER 96 HOURS, INCUBATION TO CONTINUE FOR 1 DAYS. 08/07/18 12:40 Urine - Urine Clean Catch Urine Culture - Final 08/07/18 15:30 Nasopharyngeal Swab Influenza Types A,B Antigen - Final 08/07/18 15:30 Nasopharyngeal Swab - Final IMAGING: -EKG (08/07 @ 08:36): SINUS TACHYCARDIA WITH PREMATURE ATRIAL COMPLEXES, NONSPECIFIC T WAVE ABNORMALITY, VR 110, QTc 468 -EKG (08/07 @ 15:00): NORMAL SINUS RHYTHM, T WAVE ABNORMALITY, CONSIDER ANTEROLATERAL ISCHEMIA, PROLONGED QT, VR 91, QTc 541 -ECHO: Severe global hypokinesis of the LV, LV systoilc function is severely reduced, EF 20-25%, LA is boderline dilated, Mild MR, No pericardial effusion -CXR: Segmental left lower lobe infiltrate. -Chest CTA: No evidence of pulmonary embolism. Moderate bilateral pleural effusions with areas of atelectasis bilaterally. Cardiomegaly and small pericardial effusion. -DUPLEX: There is no evidence of deep venous thromboses in both lower extremities. HOSPITAL COURSE: Date of Admission:08/07/18 Date of Discharge: 08/12/18 53 y/o F was BIBEMS from home with SOB. On admission, her BP was 178/135. Trops , EKG and ECHO were done (noted above). Cardiology recommended ruling out CAD with a Left and Right heart Cath. She was monitored on Tele. Patient home dose Imitrex was held. Her constipation and transaminitis resolved. Patient was transferred to [facility] for left and right heart cath. Minutes to complete discharge: 40 Discharge Summary Reason For Visit: CONGESTIVE HEART FAILURE, PNEUMONIA Current Active Problems CHF (congestive heart failure) (Acute) Pneumonia (Acute) Condition: Stable - Instructions Diet, Activity, Other Instructions: You are being transferred to [facility] for a catheterization of your heart. You will be under the care of a cardiac team at that facility, moving forward. You will need to follow up with your sourcing specialist after the procedure is done. You can speak with your sourcing specialist and with the medical team at that facility regarding discharge instructions. Referrals: Ruiz Granados MD [Primary Care Provider] - Rell Burton MD [Staff Physician] - Disposition: TRANSFER ACUTE CARE/OTHER HOSP - Home Medications Comprehensive Discharge Medication List: Ambulatory Orders Lisinopril [Prinivil] 20 mg PO DAILY 09/13/17 Albuterol Sulfate Inhaler - [Ventolin Hfa Inhaler -] 1 puff IH BID 06/03/18 Fluticasone/Salmeterol [Advair 250-50 Diskus] 1 each IH BID 06/03/18 Levothyroxine [Synthroid -] 50 mcg PO DAILY 08/07/18 This patient is new to me today: No Emergency Visit: Yes ED Registration Date: 08/07/18 Care time: The patient presented to the Emergency Department on the above date and was hospitalized for further evaluation of their emergent condition. Critical Care patient: No - Discharge Referral Referred to [facility] Med [facility].C.: No
--- NOTE | 2018-08-12 11:54 | HOSP ---
Subjective - Review of Symptoms Events since last encounter: patient was transferred early in am before she was evaluated by me. Physical Examination Vital Signs: Vital Signs Temperature 97.4 F L 08/12/18 05:00 Pulse Rate 75 08/12/18 05:00 Respiratory Rate 18 08/12/18 05:00 Blood Pressure 98/76 08/12/18 05:00 O2 Sat by Pulse Oximetry (%) 96 08/11/18 21:00 Labs: CBC, BMP 08/09/18 05:30 08/12/18 05:30
== END 2018-08-12 08:24 | disposition short-term general hospital (02) | DRG 194 ==
LOC: JER 08:27 → JERBED 12:11 → J4W 14:30
PROVIDERS: ADMIT Internal Medicine; ATTEND Internal Medicine
DX: I11.0 Hypertensive heart disease with heart failure (principal); I50.21 Acute systolic (congestive) heart failure; I31.3 Pericardial effusion (noninflammatory); I16.0 Hypertensive urgency; J45.909 Unspecified asthma, uncomplicated; E66.9 Obesity, unspecified; Z68.33 Body mass index [BMI] 33.0-33.9, adult; E03.9 Hypothyroidism, unspecified; G43.909 Migraine, unspecified, not intractable, without status migrainosus; Z91.14 Patient's other noncompliance with medication regimen; R74.0 Nonspecific elevation of levels of transaminase and lactic acid dehydrogenase [LDH]; I49.3 Ventricular premature depolarization; K59.00 Constipation, unspecified; J98.11 Atelectasis; J18.9 Pneumonia, unspecified organism; J90 Pleural effusion, not elsewhere classified
CPT/HCPCS: 36415; 71045-TC-FY; 71275-TC; 80048; 80053; 80061; 81003; 81015; 83605; 83721; 83735; 83880; 84100; 84443; 84484; 85025; 85610; 87040; 87086; 87804; 90688; 93005; 93010; 93306-TC; 93970-TC; 94640; 94761; 97116-GP; 97161-GP; 99283-25; G0008

== ENCOUNTER 2018-11-12 11:51 | Observation (INO) | payer OTHER ==
[2018-11-12 12:25] VITALS: BMI 36.3
--- NOTE | 2018-11-12 13:46 | EKG ---
Test Reason : Blood Pressure : / mmHG Vent. Rate : 061 BPM Atrial Rate : 061 BPM P-R Int : 152 ms QRS Dur : 088 ms QT Int : 422 ms P-R-T Axes : 033 034 038 degrees QTc Int : 424 ms NORMAL SINUS RHYTHM NORMAL ECG WHEN COMPARED WITH ECG OF 07-AUG-2018 15:07, VENT. RATE HAS DECREASED BY 30 BPM NONSPECIFIC T WAVE ABNORMALITY, IMPROVED IN INFERIOR LEADS T WAVE INVERSION NO LONGER EVIDENT IN ANTERIOR LEADS QT HAS SHORTENED Confirmed by MICHEL MANN, CATE ([id number]) on 11/12/2018 1:46:08 PM Referred By: Confirmed By:CATE PEARSON MD
--- NOTE | 2018-11-12 14:24 | PDOC ---
Attending Attestation - Resident Resident Name: FredtoniKevin - ED Attending Attestation I have performed the following: I have examined & evaluated the patient, The case was reviewed & discussed with the resident, I agree w/resident's findings & plan, Exceptions are as noted - Physicial Exam PE: 11/12/18 15:13 Patient is awake and alert, well-appearing, in no distress Normocephalic and atraumatic No JVD, CTA RRR - Medical Decision Making 11/12/18 15:13 53-year-old female with history of cardiomyopathy, hypertension presents with atraumatic chest pain radiating to the back and neck associated with left arm weakness and hypotension. Will rule out dissection. Will obtain CT of head or contrast followed by a CTA of chest with contrast. Likely admission. <Matthew Ramírez - Last Filed: 11/12/18 15:13> - HPI HPI: 11/12/18 15:16 The patient is a 53 year old female with history of CHF (20-25% EF, no clear etiology with "mostly normal" cath) asthma, HTN, anemia, who presents to the ED today with chest pain and shortness of breath since last night. She reports that the pain radiates to her back and neck. She reports associated left arm weakness. She denies fevers, chills, vomiting, endorses nausea. allergies: Morphine <Laury Luna - Last Filed: 11/12/18 15:21> Attestations - Attestations 11/12/18 15:17 Documentation prepared by Laury Luna, acting as medical office scheduler for Matthew Ramírez MD <Laury Luna - Last Filed: 11/12/18 15:21>
[2018-11-12 14:44] LABS: INR 1.03 (0.83-1.09); PROTHROMBIN TIME (PATIENT) 12.1 SEC (9.7-13.0)
[2018-11-12 14:49] LABS: ALBUMIN 3.4 g/dl (3.4-5.0); ALK PHOS 83 U/L (45-117); ANION GAP 5 MMOL/L (8-16); BILIRUBIN,TOTAL 0.4 mg/dL (0.2-1); BLOOD UREA NITROGEN 21 mg/dL (7-18); CALCIUM 8.9 mg/dL (8.5-10.1); CHLORIDE 108 mmol/L (98-107); CO2 27 mmol/L (21-32); GLUCOSE,RANDOM 98 mg/dL (74-106); MAGNESIUM 2.4 mg/dL (1.8-2.4); N-TERMINAL BNP 251.9 pg/ml (5-125); SGOT/AST 22 U/L (15-37); SGPT/ALT 44 U/L (13-61); SODIUM 140 mmol/L (136-145); TOT PROT 7.5 g/dl (6.4-8.2)
[2018-11-12 14:52] LABS: BASO % 0.3 % (0-2.0); EOS % 2.6 % (0-4.5); HEMATOCRIT 30.1 % (32.4-45.2); HEMOGLOBIN 10.6 GM/dL (10.7-15.3); MCH 32.5 pg (25.7-33.7); MCHC 35.2 g/dl (32.0-36.0); MEAN CELL VOLUME 92.5 fl (80-96); MEAN PLT VOLUME 8.4 fl (7.5-11.1); MONO % 6.4 % (3.8-10.2); NEUT % 63.7 % (42.8-82.8); PLATELET COUNT 256 K/MM3 (134-434); RBC 3.26 M/mm3 (3.60-5.2); RDW 14.2 % (11.6-15.6); WHITE BLOOD COUNT 7.7 K/mm3 (4.0-10.0)
--- NOTE | 2018-11-12 15:00 | PDOC ---
History of Present Illness - General Chief Complaint: Chest Pain Stated Complaint: CHEST PAIN Time Seen by Provider: 11/12/18 13:26 History Source: Patient Exam Limitations: No Limitations - History of Present Illness Initial Comments: 11/12/18 15:06 Patient is a 53F with history of CHF (20-25% EF, no clear etiology with "mostly normal" cath) asthma, HTN, anemia here today with chest pain and shortness of breath that onset last night. Patient reports that the pain radiates to her back and neck. Patient reports left arm weakness as well. Denies fevers, chills , vomiting, endorses nausea. Denies leg swelling, history of blood clots. Patient endorses no modifying factors to her pain or shortness of breath. Patient states that she has recently changed what diuretic she's taking, but does not know the name and simply says that it's stronger than furosemide. Past History - Past Medical History Allergies/Adverse Reactions: Allergies Allergy/AdvReac Type Severity Reaction Status Date / Time morphine AdvReac Intermediate Itching Verified 11/12/18 12:22 Home Medications: Ambulatory Orders Aspirin [Aspirin EC] 81 mg PO DAILY 11/12/18 Carvedilol 12.5 mg PO BID 11/12/18 Ergocalciferol (Vitamin D2) [Vitamin D2] 50,000 unit PO WEEKLY 11/12/18 Ferrous Sulfate 325 mg PO BID 11/12/18 Furosemide 80 mg PO DAILY 11/12/18 Levothyroxine [Synthroid -] 25 mcg PO DAILY 11/12/18 Lisinopril [Prinivil -] 40 mg PO DAILY 11/12/18 Pantoprazole Sodium [Protonix -] 20 mg PO DAILY 11/12/18 Anemia: Yes (iron deficiency) Asthma: Yes Cancer: No Cardiac Disorders: No CVA: No COPD: No CHF: Yes Dementia: No Diabetes: No GI Disorders: No Disorders: No HTN: Yes Hypercholesterolemia: Yes Liver Disease: No Seizures: No Thyroid Disease: Yes (hypo) - Surgical History Abdominal Surgery: No Appendectomy: No Cardiac Surgery: No Cholecystectomy: No Lung Surgery: No Neurologic Surgery: No Orthopedic Surgery: No - Immunization History Immunization Up to Date: Yes - Suicide/Smoking/Psychosocial Hx Smoking Status: No Smoking History: Never smoked Have you smoked in the past 12 months: No Number of Cigarettes Smoked Daily: 2 If you are a former smoker, when did you quit?: 12 years ago Hx Alcohol Use: No Drug/Substance Use Hx: No Substance Use Type: None Hx Substance Use Treatment: No Review of Systems - Review of Systems Comments:: 11/12/18 15:10 GENERAL/CONSTITUTIONAL: No fever or chills. No weakness. HEAD, EYES, EARS, NOSE AND THROAT: No change in vision. No sore throat. CARDIOVASCULAR: +chest pain +shortness of breath RESPIRATORY: No cough, wheezing, or hemoptysis. GASTROINTESTINAL: No nausea, vomiting, diarrhea or constipation. GENITOURINARY: No dysuria, frequency, or change in urination. MUSCULOSKELETAL: +l arm pain. +neck +back pain. SKIN: No rash NEUROLOGIC: No headache, vertigo, loss of consciousness, +l arm weakness ENDOCRINE: No increased thirst. No abnormal weight change HEMATOLOGIC/LYMPHATIC: No anemia, easy bleeding, or history of blood clots. ALLERGIC/IMMUNOLOGIC: No hives or skin allergy. *Physical Exam - Vital Signs Last Vital Signs Temp Pulse Resp BP Pulse Ox 97.8 F 67 18 91/54 L 96 11/12/18 12:22 11/12/18 12:22 11/12/18 12:22 11/12/18 12:22 11/12/18 12:22 - Physical Exam Comments: 11/12/18 15:10 GENERAL: Awake, alert, and fully oriented, in no acute distress HEAD: No signs of trauma, normocephalic, atraumatic EYES: PERRLA, EOMI, sclera anicteric, conjunctiva clear ENT: Auricles normal inspection, hearing grossly normal, nares patent, oropharynx clear without exudates. Moist mucosa NECK: Normal ROM, supple, no lymphadenopathy, JVD, or masses LUNGS: No distress, speaks full sentences, clear to auscultation bilaterally HEART: Regular rate and rhythm, normal S1 and S2, no murmurs, rubs or gallops, peripheral pulses normal and equal bilaterally. ABDOMEN: Soft, nontender, normoactive bowel sounds. No guarding, no rebound. No masses EXTREMITIES: Normal inspection, Normal range of motion, no edema. No clubbing or cyanosis. NEUROLOGICAL: Cranial nerves II through XII grossly intact. Normal speech, normal gait, 4/5 strength in L arm SKIN: Warm, Dry, normal turgor, no rashes or lesions noted. Moderate Sedation - Procedure Monitoring Vital Signs: Procedure Monitoring Vital Signs Temperature 97.8 F 11/12/18 12:22 Pulse Rate 67 11/12/18 12:22 Respiratory Rate 18 11/12/18 12:22 Blood Pressure 91/54 L 11/12/18 12:22 O2 Sat by Pulse Oximetry (%) 96 11/12/18 12:22 ED Treatment Course - LABORATORY CBC & Chemistry Diagram: 11/12/18 14:16 11/12/18 14:16 - ADDITIONAL ORDERS Additional order review: Laboratory Results 11/12/18 14:16 PT with INR 12.10 INR 1.03 - RADIOLOGY Radiology Studies Ordered: Category Date Time Status CHEST CTA [CT] Stat CT Scan 11/12/18 13:[address] WITHOUT CONTRAST [CT] Stat CT Scan 11/12/18 13:40 Ordered CHEST PA & LAT [RAD] Stat Radiology 11/12/18 13:39 Taken Medical Decision Making - Medical Decision Making 11/12/18 15:11 Patient is a 53F with history of CHF (reduced EF, unknown etiology, recently diagnosed), asthma, HTN, anemia here today with chest pain that radiates to back , left arm weakness. DDx includes, but is not limited to: chf, overdiuresis, stroke, dissection. Will workup with cardiac labs, ekg, cxr, cta. Hypotensive 90 /54. EKG shows normal sinus rhythm with rate of 61. No st elevation/depressions. Normal axis. Normal intervals. No significant t wave abnormalities. CXR clear. CBC, CMP reassuring. Trop neg. BNP mildly elevated. Pending CTA. Holding on fluids until dissection rule out. Patient will require admission. 11/12/18 17:[address] head normal. Presume 2/2 dehydration, given 500cc fluids. Hospitalist paged for obs admission. *DC/Admit/Observation/Transfer Diagnosis at time of Disposition: Chest pain - Discharge Dispostion Condition at time of disposition: Stable Decision to Admit order: Yes - Referrals Referrals: Delia Urbina MD [Primary Care Provider] - - Patient Instructions - Post Discharge Activity
[2018-11-12] MEDS ORDERED: SODIUM CHLORIDE 500 ML IV STA ×2 (15:12→17:22)
[2018-11-12] MEDS ORDERED: ACETAMINOPHEN 500 MG TABLET (FP) PO ONE (19:55)
[2018-11-12] MEDS ORDERED: ACETAMINOPHEN 325 MG TABLET (FP) ONE (20:09)
--- NOTE | 2018-11-12 21:39 | HP ---
Admitting History and Physical - Primary Care Physician PCP: Martinez Choi - Admission History of Present Illness: 53F with history of CHF (20-25% EF, no clear etiology with "mostly normal" cath ) asthma, HTN, anemia here today with chest pain and shortness of breath that onset last night. Patient reports that the pain radiates to her back and neck. Patient reports left arm weakness as well. Denies fevers, chills, vomiting, endorses nausea. Denies leg swelling, history of blood clots. Patient endorses no modifying factors to her pain or shortness of breath. Patient states that she has recently changed what diuretic she's taking, but does not know the name and simply says that it's stronger than furosemide. - Past Medical History Cardiovascular: Yes: HTN Pulmonary: Yes: Asthma Gastrointestinal: Yes: Ulcerative Colitis ...LMP: 08/08/17 Heme/Onc: Yes: Anemia - Past Surgical History Past Surgical History: Yes: Tubal Ligation - Smoking History Smoking history: Never smoked Have you smoked in the past 12 months: No Aproximately how many cigarettes per day: 2 If you are a former smoker, when did you quit?: 12 years ago - Alcohol/Substance Use Hx Alcohol Use: No History of Substance Use: reports: None - Social History ADL: Independent History of Recent Travel: No Home Medications - Allergies Allergies/Adverse Reactions: Allergies Allergy/AdvReac Type Severity Reaction Status Date / Time morphine AdvReac Intermediate Itching Verified 11/12/18 12:22 - Home Medications Home Medications: Ambulatory Orders Aspirin [Aspirin EC] 81 mg PO DAILY 11/12/18 Carvedilol 12.5 mg PO BID 11/12/18 Ergocalciferol (Vitamin D2) [Vitamin D2] 50,000 unit PO WEEKLY 11/12/18 Ferrous Sulfate 325 mg PO BID 11/12/18 Furosemide 80 mg PO DAILY 11/12/18 Levothyroxine [Synthroid -] 25 mcg PO DAILY 11/12/18 Lisinopril [Prinivil -] 40 mg PO DAILY 11/12/18 Pantoprazole Sodium [Protonix -] 20 mg PO DAILY 11/12/18 Family Disease History - Family Disease History Family Disease History: Diabetes: Mother, Heart Disease: Father (renal failure) , Other: Father Review of Systems - Review of Systems Cardiovascular: reports: Chest Pain Physical Examination Vital Signs: Vital Signs Temperature 97.8 F 11/12/18 12:22 Pulse Rate 67 11/12/18 12:22 Respiratory Rate 18 11/12/18 12:22 Blood Pressure 91/54 L 11/12/18 12:22 O2 Sat by Pulse Oximetry (%) 96 11/12/18 12:22 Constitutional: Yes: No Distress HENT: Yes: Atraumatic Neck: Yes: Supple Cardiovascular: Yes: Regular Rate and Rhythm Respiratory: Yes: CTA Bilaterally Gastrointestinal: Yes: Normal Bowel Sounds Extremities: Yes: WNL Edema: No Neurological: Yes: Alert, Oriented Labs: CBC, BMP 11/12/18 14:16 11/12/18 14:16 Assessment/Plan Laboratory Tests 11/12/18 11/12/18 11/12/18 14:16 14:16 14:16 WBC 7.7 RBC 3.26 L Hgb 10.6 L Hct 30.1 L MCV 92.5 MCH 32.5 MCHC 35.2 RDW 14.2 Plt Count 256 MPV 8.4 Absolute Neuts (auto) 4.9 Neutrophils % 63.7 Lymphocytes % 27.0 Monocytes % 6.4 Eosinophils % 2.6 Basophils % 0.3 Nucleated RBC % 0 PT with INR 12.10 INR 1.03 Sodium 140 Potassium 4.0 Chloride 108 H Carbon Dioxide 27 Anion Gap 5 L BUN 21 H Creatinine 1.0 Creat Clearance w eGFR 58.45 Random Glucose 98 Calcium 8.9 Magnesium 2.4 Total Bilirubin 0.4 AST 22 ALT 44 Alkaline Phosphatase 83 Creatine Kinase 91 Troponin I < 0.02 B-Natriuretic Peptide 251.9 H Total Protein 7.5 Albumin 3.4
[2018-11-12] MEDS ORDERED: CARVEDILOL 12.5 MG TABLET (FP) ONE (22:36)
[2018-11-12] MEDS: CARVEDILOL 12.5 MG TABLET (FP) PO SCH (22:56)
[2018-11-13] MEDS ORDERED: LEVOTHYROXINE NA 25 MCG TABLET (FP) ONE (06:50)
[2018-11-13] MEDS: LEVOTHYROXINE NA 25 MCG TABLET (FP) PO SCH (07:13)
[2018-11-13] MEDS ORDERED: PT OWN MED DRAWER 7, Y5N ONE (08:56)
[2018-11-13] MEDS ORDERED: FUROSEMIDE 40 MG TABLET (FP) PO SCH (10:00)
[2018-11-13] MEDS: CARVEDILOL 12.5 MG TABLET (FP) PO SCH (10:03)
[2018-11-13] MEDS: ASPIRIN COATED 81 MG TABLET.EC PO SCH (10:03)
[2018-11-13] MEDS: PANTOPRAZOLE 20 MG TABLET (FP) PO SCH (10:04)
[2018-11-13] MEDS: LISINOPRIL 20 MG TABLET (FP) PO SCH (10:04)
[2018-11-13] MEDS ORDERED: traMADol HCL 50 MG TABLET PO ONE (11:00)
[2018-11-13] MEDS: FLUTICASONE/SALMETEROL 100 MCG/50 MCG DISKUS IH SCH (11:17)
[2018-11-13] MEDS: ALBUTEROL SO4 2.5/IPRATROPIUM 0.5 INH SOL 3 ML VIAL.NEB. NEB PRN (12:21)
--- NOTE | 2018-11-13 13:41 | PN ---
Progress Note, Physician Chief Complaint: Pt sitting in stretcher in no acute distress. pt appears very anxious, reports she is feeling better today however still c/o substernal heaviness. Denies sob, n/v/d Reassessed pt around 1330, pt reports having a syncopal episode in the bathroom. she said she is urinating a lot from lasix and got up and felt very dizzy which caused to lose consciousness and fall where she hit her lower back. She denies hitting head head. She reports accompanying nausea. Cardiology informed of findings. 1345 called by RN. Pt now reporting she hit her head during fall - Current Medication List Current Medications: Active Medications Albuterol/Ipratropium (Duoneb -) 1 amp NEB Q6H PRN PRN Reason: SHORTNESS OF BREATH Last Admin: 11/13/18 12:21 Dose: 1 amp Aspirin (Ecotrin -) 81 mg PO DAILY [facility] Last Admin: 11/13/18 10:03 Dose: 81 mg Carvedilol (Coreg -) 12.5 mg PO BID [facility] Last Admin: 11/13/18 10:03 Dose: 12.5 mg Furosemide (Lasix -) 80 mg PO DAILY [facility] Last Admin: 11/13/18 10:04 Dose: 80 mg Levothyroxine Sodium (Synthroid -) 25 mcg PO DAILY@0700 [facility] Last Admin: 11/13/18 07:13 Dose: 25 mcg Lisinopril (Prinivil) 40 mg PO DAILY [facility] Last Admin: 11/13/18 10:04 Dose: 40 mg Pantoprazole Sodium (Protonix -) 20 mg PO DAILY [facility] Last Admin: 11/13/18 10:04 Dose: 20 mg Fluticasone/Salmeterol (Advair 100mcg/50mcg -) 1 puff IH BID [facility] Last Admin: 11/13/18 11:17 Dose: Not Given - Objective Vital Signs: Vital Signs Temperature 97.4 F L 11/13/18 10:00 Pulse Rate 80 11/13/18 10:00 Respiratory Rate 18 11/13/18 10:00 Blood Pressure 126/87 11/13/18 10:00 O2 Sat by Pulse Oximetry (%) 98 11/13/18 07:56 Constitutional: Yes: Well Nourished, Anxious Cardiovascular: Yes: Regular Rate and Rhythm Respiratory: Yes: WNL, Regular, CTA Bilaterally. No: Accessory Muscle Use, SOB , Tachypnea, Wheezes Gastrointestinal: Yes: WNL, Normal Bowel Sounds, Soft, Abdomen, Obese. No: Distention, Tenderness Genitourinary: Yes: WNL Edema: Yes Edema: LLE: Trace, RLE: Trace Neurological: Yes: WNL, Alert, Oriented Psychiatric: Yes: WNL, Alert, Oriented Labs: CBC, BMP 11/12/18 14:16 11/12/18 14:16 INR, PTT INR 1.03 (0.83-1.09) 11/12/18 14:16 Problem List - Problems (1) Chest pain Assessment/Plan: suspect atypical suspect anxiety provoked trop x2 neg echo pending chest cta neg case discussed w/ cardiology Code(s): R07.9 - CHEST PAIN, UNSPECIFIED (2) Syncope Assessment/Plan: possible vasovagal orthostatics ordered echo pending head ct/lumbar xray ordered fall precautions tele monitoring Code(s): R55 - SYNCOPE AND COLLAPSE Qualifiers: Encounter type: initial encounter (3) CHF (congestive heart failure) Assessment/Plan: stable, euvolemic continue lasix Code(s): I50.9 - HEART FAILURE, UNSPECIFIED Qualifiers: Heart failure type: systolic Heart failure chronicity: chronic Qualified Code(s): I50.22 - Chronic systolic (congestive) heart failure (4) Hypertension Assessment/Plan: controlled continue home meds Code(s): I10 - ESSENTIAL (PRIMARY) HYPERTENSION Qualifiers: Hypertension type: essential hypertension Qualified Code(s): I10 - Essential (primary) hypertension (5) Hypothyroidism Assessment/Plan: stable continue synthroid Code(s): E03.9 - HYPOTHYROIDISM, UNSPECIFIED
--- NOTE | 2018-11-13 13:45 | CON.CARD ---
Cardiology Consult (text) - Consultation Consultation Note: Consult Consult Specialty:: Cardiology Referred by:: Bryanna Reason for Consultation:: chest pain - History of Present Illness Chief Complaint: chest pain History of Present Illness: 53F h/o HTN, hypothyroidism, asthma, obesity, nonischemic cardiomyopathy, chronic systolic HF p/w chest pain, shortness of breath starting night prior to admission. Pain radiates to back and neck, constant. No edema, palps. Occasional dizziness. Of note patient was recently seen in clinic 10/2017 for dizziness, tiredness, shortness of breath; appeared euvolemic on exam, CXR no congestion. had been on torsemide which was changed back to lasix which was reduced to 40 mg daily and carvedilol and lisinopril doses were increased, had planned echo next week to reevaluate EF. This morning went to the bathroom to urinate, after urinating felt lightheadedness/room spinning and "blacked out" she is not sure for how long. no prior episodes of syncope - Past Medical History Cardio/Vascular: Yes: HTN Pulmonary: Yes: Asthma Gastrointestinal: Yes: Ulcerative Colitis ...LMP: 08/08/17 - Past Surgical History Past Surgical History: Yes: Tubal Ligation - Alcohol/Substance Use Hx Alcohol Use: No History of Substance Use: reports: None - Smoking History Smoking history: Former smoker Have you smoked in the past 12 months: No Aproximately how many cigarettes per day: 2 If you are a former smoker, when did you quit?: 12 years ago - Social History ADL: Independent History of Recent Travel: No Home Medications - Allergies Allergies/Adverse Reactions: Allergies Allergy/AdvReac Type Severity Reaction Status Date / Time morphine AdvReac Intermediate Itching Verified 11/12/18 12:22 Current Medications Albuterol/Ipratropium (Duoneb -) 1 amp NEB Q6H PRN PRN Reason: SHORTNESS OF BREATH Last Admin: 11/13/18 12:21 Dose: 1 amp Aspirin (Ecotrin -) 81 mg PO DAILY [facility] Last Admin: 11/13/18 10:03 Dose: 81 mg Carvedilol (Coreg -) 12.5 mg PO BID [facility] Last Admin: 11/13/18 10:03 Dose: 12.5 mg Furosemide (Lasix -) 80 mg PO DAILY [facility] Last Admin: 02/07/19 10:04 Dose: 80 mg Levothyroxine Sodium (Synthroid -) 25 mcg PO DAILY@0700 [facility] Last Admin: 11/13/18 07:13 Dose: 25 mcg Lisinopril (Prinivil) 40 mg PO DAILY [facility] Last Admin: 11/13/18 10:04 Dose: 40 mg Pantoprazole Sodium (Protonix -) 20 mg PO DAILY [facility] Last Admin: 11/13/18 10:04 Dose: 20 mg Fluticasone/Salmeterol (Advair 100mcg/50mcg -) 1 puff IH BID [facility] Last Admin: 11/13/18 11:17 Dose: Not Given Family Disease History - Family Disease History Family Disease History: Diabetes: Mother, Heart Disease: Father (renal failure) , Other: Father Review of Systems - Review of Systems Constitutional: reports: No Symptoms Eyes: reports: No Symptoms HENT: reports: No Symptoms Neck: reports: No Symptoms Cardiovascular: reports: Shortness of Breath Respiratory: reports: Orthopnea, SOB on Exertion Gastrointestinal: reports: No Symptoms Genitourinary: reports: No Symptoms Musculoskeletal: reports: No Symptoms Integumentary: reports: No Symptoms Neurological: reports: No Symptoms Endocrine: reports: No Symptoms Hematology/Lymphatic: reports: No Symptoms Psychiatric: reports: No Symptoms Vital Signs Period Temp Pulse Resp BP Sys/Sigala Pulse Ox Last 24 Hr 97.4 F-98.6 F 56-80 18-20 121-136/69-87 96-98 Constitutional: Yes: No Distress, Calm Eyes: Yes: Conjunctiva Clear, EOM Intact HENT: Yes: Atraumatic, Normocephalic Neck: Yes: Supple, Trachea Midline Respiratory: Yes: Regular, CTA Bilaterally Gastrointestinal: Yes: Normal Bowel Sounds, Soft Renal/: Yes: WNL Cardiovascular: Yes: Regular Rate and Rhythm JVD: No Carotid Bruit: No Heart Sounds: Yes: S1, S2 Musculoskeletal: Yes: WNL Extremities: Yes: WNL Edema: No Peripheral Pulses: 2+ Left Doralis Pedis, 2+ Right Dorsalis Pedis Integumentary: Yes: WNL Neurological: Yes: Alert, Oriented ...Motor Strength: WNL Psychiatric: Yes: Alert, Oriented - Other Data Laboratory Last Values WBC 7.7 K/mm3 (4.0-10.0) 11/12/18 14:16 RBC 3.26 M/mm3 (3.60-5.2) L 11/12/18 14:16 Hgb 10.6 GM/dL (10.7-15.3) L 11/12/18 14:16 Hct 30.1 % (32.4-45.2) L 11/12/18 14:16 MCV 92.5 fl (80-96) 11/12/18 14:16 MCH 32.5 pg (25.7-33.7) 11/12/18 14:16 MCHC 35.2 g/dl (32.0-36.0) 11/12/18 14:16 RDW 14.2 % (11.6-15.6) 11/12/18 14:16 Plt Count 256 K/MM3 (134-434) 11/12/18 14:16 MPV 8.4 fl (7.5-11.1) 11/12/18 14:16 Absolute Neuts (auto) 4.9 K/mm3 (1.5-8.0) 11/12/18 14:16 Neutrophils % 63.7 % (42.8-82.8) 11/12/18 14:16 Lymphocytes % 27.0 % (8-40) 11/12/18 14:16 Monocytes % 6.4 % (3.8-10.2) 11/12/18 14:16 Eosinophils % 2.6 % (0-4.5) 11/12/18 14:16 Basophils % 0.3 % (0-2.0) 11/12/18 14:16 Nucleated RBC % 0 % (0-0) 11/12/18 14:16 PT with INR 12.10 SEC (9.7-13.0) 11/12/18 14:16 INR 1.03 (0.83-1.09) 11/12/18 14:16 Sodium 140 mmol/L (136-145) 11/12/18 14:16 Potassium 4.0 mmol/L (3.5-5.1) 11/12/18 14:16 Chloride 108 mmol/L (98-107) H 11/12/18 14:16 Carbon Dioxide 27 mmol/L (21-32) 11/12/18 14:16 Anion Gap 5 MMOL/L (8-16) L 11/12/18 14:16 BUN 21 mg/dL (7-18) H 11/12/18 14:16 Creatinine 1.0 mg/dL (0.55-1.3) 11/12/18 14:16 Creat Clearance w eGFR 58.45 (>60) 11/12/18 14:16 Random Glucose 98 mg/dL (74-106) 11/12/18 14:16 Calcium 8.9 mg/dL (8.5-10.1) 11/12/18 14:16 Magnesium 2.4 mg/dL (1.8-2.4) 11/12/18 14:16 Total Bilirubin 0.4 mg/dL (0.2-1) 11/12/18 14:16 AST 22 U/L (15-37) 11/12/18 14:16 ALT 44 U/L (13-61) 11/12/18 14:16 Alkaline Phosphatase 83 U/L (45-117) 11/12/18 14:16 Creatine Kinase 68 U/L (26-192) 11/13/18 11:05 Troponin I < 0.02 ng/ml (0.00-0.05) 11/13/18 11:05 B-Natriuretic Peptide 251.9 pg/ml (5-125) H 11/12/18 14:16 Total Protein 7.5 g/dl (6.4-8.2) 11/12/18 14:16 Albumin 3.4 g/dl (3.4-5.0) 11/12/18 14:16 Assessment/Plan CTA chest:no aortic dissection, resolution of prior effusions EKG: sinus, nl intervals, no ischemic changes echo 08/2018 severe global hypokinesis of LV, EF 20-25%. RV tds. LA bl dilated. mild MR echo 11/2018 LV function mild to mod reduced, EF 40-45%, mild to mod global hypokinesis of LV, nl RV function chest pain, sob - likely MSK, worse with moving arm - CTA chest unremarkable - trop neg x 2, EKG stable, recent cath no obstructive dz dizziness/syncope - complained of loss of consciousness and fall in the shower while in ER - history consistent with vasvogal, also complained of episodes of lightheadedness at home, may be overdiuresis - felt better yesterday after receiving IVF - monitoring on tele Chronic systolic HF - BNP 281, no congestive changes on CT chest - cardiac cath nonobstructive dz 08/2018 - less likely HF exacerbation - cont home lisinopril 40 mg daily, carvedilol 25 mg BID - reduce lasix to 20 mg daily, dizziness may be due to overdiuresis, appears euvolemic - echo shows improved EF compared to prior HTN - cont home meds hypothyroidism - manage per primary team
[2018-11-13] MEDS ORDERED: ACETAMINOPHEN 325 MG TABLET (FP) PO PRN (14:49)
--- NOTE | 2018-11-13 16:13 | ECHO ---
Name: LAMBERT ALVAREZ Exam:Adult Echocardiogram Study Date: 11/13/2018 02:34 PM Age: 53 yrs Reason For Study: syncope Height: 62 in Weight: 199 lb BSA: 1.9 m2 MMode/2D Measurements & Calculations IVSd: 0.97 cm Ao root diam: 2.7 cm LVIDd: 5.7 cm LA dimension: 3.6 cm LVIDs: 3.0 cm LVPWd: 1.2 cm LVPWs: 1.7 cm EDV(Teich): 159.0 ml ESV(Teich): 36.0 ml LVOT diam: 2.0 cm RV S Dany: 14.4 cm/sec Doppler Measurements & Calculations MV E max dany: 80.0 cm/sec Ao V2 max: 187.4 cm/sec MV A max dany: 80.0 cm/sec Ao max P.0 mmHg MV E/A: 1.00 MV dec time: 0.21 sec ALFONZO(V,D): 1.7 cm2 LV V1 max P.2 mmHg PA V2 max: 111.3 cm/sec LV V1 max: 102.8 cm/sec PA max P.0 mmHg Med Peak E' Dany: 6.7 cm/sec Med E/e': 11.9 Lat Peak E' Dany: 7.1 cm/sec Lat E/e': 11.3 Procedure A complete two-dimensional transthoracic echocardiogram was performed (2D, M-mode, Doppler and color flow Doppler). Left Ventricle The left ventricle is normal in size. Left ventricular systolic function is mild to moderately reduce d. Ejection Fraction = 40-45%. There is mild to moderate global hypokinesis of the left ventricle. Right Ventricle The right ventricle is normal in size and function. Atria Normal left and right atrial size and function. Mitral Valve There is no mitral regurgitation noted. Tricuspid Valve There is trace tricuspid regurgitation. There was insufficient TR detected to calculate RV systolic p ressure. Aortic Valve No hemodynamically significant valvular aortic stenosis. No aortic regurgitation is present. Pulmonic Valve There is no pulmonic valvular regurgitation. Great Vessels The aortic root is normal size. Pericardium/Pleura There is no pericardial effusion. Interpretation Summary Left ventricular systolic function is mild to moderately reduced. The left ventricle is normal in size. There is mild to moderate global hypokinesis of the left ventricle. The right ventricle is normal in size and function. There is trace tricuspid regurgitation. MD Javi Dash 11/13/2018 04:12 PM
[2018-11-13] MEDS ORDERED: ACETAMINOPHEN 325 MG TABLET (FP) ONE (17:19)
[2018-11-13] MEDS: CARVEDILOL 25 MG TABLET (FP) PO SCH (21:42)
[2018-11-13] MEDS ORDERED: diphenhydrAMINE HCL 25 MG CAPSULE (FP) PO ONE (21:51)
[2018-11-14] MEDS: FLUTICASONE/SALMETEROL 100 MCG/50 MCG DISKUS IH SCH ×2 (00:02→09:19)
[2018-11-14] MEDS: ALBUTEROL SO4 2.5/IPRATROPIUM 0.5 INH SOL 3 ML VIAL.NEB. NEB PRN ×2 (01:07→09:51)
[2018-11-14] MEDS: LEVOTHYROXINE NA 25 MCG TABLET (FP) PO SCH (06:26)
[2018-11-14 06:33] LABS: BASO % 0.3 % (0-2.0); HEMATOCRIT 27.4 % (32.4-45.2); HEMOGLOBIN 9.4 GM/dL (10.7-15.3); LYMPH % 32.4 % (8-40); MCHC 34.4 g/dl (32.0-36.0); MEAN CELL VOLUME 92.9 fl (80-96); MEAN PLT VOLUME 7.9 fl (7.5-11.1); MONO % 8.6 % (3.8-10.2); NEUT % 55.7 % (42.8-82.8); PLATELET COUNT 203 K/MM3 (134-434); RBC 2.95 M/mm3 (3.60-5.2); RDW 14.4 % (11.6-15.6); WHITE BLOOD COUNT 6.1 K/mm3 (4.0-10.0)
[2018-11-14 07:14] LABS: ANION GAP 5 MMOL/L (8-16); BLOOD UREA NITROGEN 19 mg/dL (7-18); CALCIUM 8.5 mg/dL (8.5-10.1); CHLORIDE 110 mmol/L (98-107); CO2 27 mmol/L (21-32); CREATININE 0.8 mg/dL (0.55-1.3); GLUCOSE,RANDOM 96 mg/dL (74-106); MAGNESIUM 2.2 mg/dL (1.8-2.4); PHOSPHOROUS 3.6 mg/dL (2.5-4.9); POTASSIUM 4.1 mmol/L (3.5-5.1); SODIUM 141 mmol/L (136-145)
[2018-11-14] MEDS: PANTOPRAZOLE 20 MG TABLET (FP) PO SCH (09:17)
[2018-11-14] MEDS: ASPIRIN COATED 81 MG TABLET.EC PO SCH (09:17)
[2018-11-14] MEDS: CARVEDILOL 25 MG TABLET (FP) PO SCH (09:17)
[2018-11-14] MEDS: LISINOPRIL 20 MG TABLET (FP) PO SCH (09:17)
[2018-11-14] MEDS ORDERED: FUROSEMIDE 20 MG TABLET (FP) PO SCH (10:00)
[2018-11-14 10:32] VITALS: BP 140/78; PULSE 66; TEMP 98
--- NOTE | 2018-11-14 11:27 | PN ---
Progress Note (short form) - Note Progress Note: s: no cp sob palps dizzy o: Vital Signs Period Temp Pulse Resp BP Sys/Sigala Pulse Ox Last 24 Hr 97.8 F-98.6 F 54-102 16-20 98-159/54-90 96-100 Constitutional: Yes: No Distress, Calm Eyes: Yes: Conjunctiva Clear Respiratory: Yes: Regular, CTA Bilaterally Gastrointestinal: Yes: Normal Bowel Sounds, Soft Cardiovascular: Yes: Regular Rate and Rhythm JVD: No Edema: No Peripheral Pulses: 2+ Left Doralis Pedis, 2+ Right Dorsalis Pedis Neurological: Yes: Alert, Oriented Current Medications Generic Name Dose Route Start Last Admin Trade Name Freq PRN Reason Stop Dose Admin Acetaminophen 650 mg 11/13/18 14:49 11/13/18 17:37 Tylenol - PO 650 mg Q6H PRN Administration PAIN LEVEL 1-5 Albuterol/Ipratropium 1 amp 11/13/18 10:24 11/14/18 09:51 Duoneb - NEB 1 amp Q6H PRN Administration SHORTNESS OF BREATH Aspirin 81 mg 11/13/18 10:00 11/14/18 09:17 Ecotrin - PO 81 mg DAILY FRANNIE Administration Carvedilol 25 mg 11/13/18 22:00 11/14/18 09:17 Coreg - PO 25 mg BID FRANNIE Administration Furosemide 20 mg 11/14/18 10:00 11/14/18 09:17 Lasix - PO 20 mg DAILY FRANNIE Administration Levothyroxine Sodium 25 mcg 11/13/18 07:00 11/14/18 06:26 Synthroid - PO 25 mcg DAILY@0700 FRANNIE Administration Lisinopril 40 mg 11/13/18 10:00 11/14/18 09:17 Prinivil PO 40 mg DAILY FRANNIE Administration Pantoprazole Sodium 20 mg 11/13/18 10:00 11/14/18 09:17 Protonix - PO 20 mg DAILY FRANNIE Administration Fluticasone/Salmeterol 1 puff 11/13/18 11:45 11/14/18 09:19 Advair 100mcg/50mcg - IH 1 puff BID FRANNIE Administration CBC, BMP 11/14/18 05:30 11/14/18 05:30 Assessment/Plan CTA chest:no aortic dissection, resolution of prior effusions EKG: sinus, nl intervals, no ischemic changes echo 08/2018 severe global hypokinesis of LV, EF 20-25%. RV tds. LA bl dilated. mild MR echo 11/2018 LV function mild to mod reduced, EF 40-45%, mild to mod global hypokinesis of LV, nl RV function tele: sr chest pain, sob - likely MSK, worse with moving arm - CTA chest unremarkable - trop neg, EKG stable, recent cath no obstructive dz dizziness/syncope - complained of loss of consciousness and fall in the shower while in ER - history consistent with vasvogal, also complained of episodes of lightheadedness at home, may be overdiuresis - felt better after receiving IVF Chronic systolic HF - BNP 281, no congestive changes on CT chest - cardiac cath nonobstructive dz 08/2018 - less likely HF exacerbation - cont home lisinopril 40 mg daily, carvedilol 25 mg BID - reduce lasix to 20 mg daily, dizziness may be due to overdiuresis, appears euvolemic - echo shows improved EF compared to prior HTN - cont home meds hypothyroidism - manage per primary team cardiac ortiz stable for dc
--- NOTE | 2018-11-14 12:57 | DS ---
Physical Examination Vital Signs: Vital Signs Temperature 98 F 11/14/18 10:00 Pulse Rate 66 11/14/18 10:00 Respiratory Rate 20 11/14/18 10:00 Blood Pressure 140/78 11/14/18 10:00 O2 Sat by Pulse Oximetry (%) 100 11/14/18 10:00 Constitutional: Yes: Well Nourished, No Distress, Calm Cardiovascular: Yes: WNL, Regular Rate and Rhythm Respiratory: Yes: WNL, Regular, CTA Bilaterally. No: Accessory Muscle Use, SOB , Tachypnea, Wheezes Gastrointestinal: Yes: WNL, Normal Bowel Sounds, Soft. No: Distention, Tenderness Renal/: Yes: WNL Musculoskeletal: Yes: WNL Extremities: Yes: WNL Edema: Yes Edema: LLE: Trace, RLE: Trace Neurological: Yes: WNL, Alert, Oriented Psychiatric: Yes: WNL, Alert, Oriented Labs: CBC, BMP 11/14/18 05:30 11/14/18 05:30 Discharge Summary Reason For Visit: CHEST PAIN Current Active Problems Chest pain (Acute) Syncope (Acute) Hospital Course: 53 year old female admitted for evaluation of chest pain. All cardiac work up negative. Pt had a syncopal episode during her stay, all work up negative. suspect vasovagal , possible 2/2 overdiuresis. Lasix decreased by cardiology. Pt is medically stable for discharge home. Follow up as directed Condition: Good - Instructions Diet, Activity, Other Instructions: meds as directed lasix 20mg daily Referrals: Tori Peters MD [Staff Physician] - 1 Week Delia Urbina MD [Primary Care Provider] - 1 Week Disposition: HOME - Home Medications Comprehensive Discharge Medication List: Ambulatory Orders Aspirin [Aspirin EC] 81 mg PO DAILY 11/12/18 Carvedilol 25 mg PO BID 11/12/18 Ergocalciferol (Vitamin D2) [Vitamin D2] 50,000 unit PO WEEKLY 11/12/18 Ferrous Sulfate 325 mg PO BID 11/12/18 Levothyroxine [Synthroid -] 25 mcg PO DAILY 11/12/18 Lisinopril [Prinivil -] 40 mg PO DAILY 11/12/18 Pantoprazole Sodium [Protonix -] 20 mg PO DAILY 11/12/18 Salmeterol/Fluticasone [Advair 100Mcg/50Mcg -] 1 puff IH BID inhaler 11/13/18 Furosemide [Lasix -] 20 mg PO DAILY #30 tablet 11/14/18
== END 2018-11-14 13:26 | disposition home or self-care (01) ==
LOC: JER 11:51 → JERBED 17:27 → J4W 11-13 19:45
PROVIDERS: ADMIT Internal Medicine; ATTEND Internal Medicine
PROC: 3E0F7GC Introduction of Other Therapeutic Substance into Respiratory Tract, Via Natural or Artificial Opening (ICD-10-PCS; principal; 2018-11-12)
DX: R07.9 Chest pain, unspecified (principal); R55 Syncope and collapse; I50.22 Chronic systolic (congestive) heart failure; I11.0 Hypertensive heart disease with heart failure; I42.0 Dilated cardiomyopathy; E03.9 Hypothyroidism, unspecified; D50.9 Iron deficiency anemia, unspecified; E78.5 Hyperlipidemia, unspecified; J45.909 Unspecified asthma, uncomplicated; E66.9 Obesity, unspecified; Z68.37 Body mass index [BMI] 37.0-37.9, adult; Z79.82 Long term (current) use of aspirin; Z88.6 Allergy status to analgesic agent
CPT/HCPCS: 36415; 70450-TC; 71046-TC-FY; 71275-TC; 72100-TC-FY; 80048; 80053; 82550; 83735; 83880; 84100; 84484; 85025; 85610; 93005; 93010; 93306-TC; 94640; 96360; 96361; 99284-25; G0378

== ENCOUNTER 2019-01-16 18:59 | Inpatient (IN) | payer OTHER ==
[2019-01-16 19:16] VITALS: BMI 35.4
--- NOTE | 2019-01-16 19:44 | PDOC ---
History of Present Illness - General Chief Complaint: Urinary Problem Stated Complaint: KIDNEY PAIN Time Seen by Provider: 01/16/19 19:35 - History of Present Illness Initial Comments: 01/16/19 19:37 53 yo F with h/o HTN, obesity, CHF, fibroids, asthma, hypothyroidism, who p/w BL flank pain. Patient with 3 days of stable, dull, crampy, BL flank pain, with no identifiable triggers or alleviators. Reports being advised by Production Engineer Track to come to ED for elevated Creatinine 1.7 as seen on preop labs. Scheduled for elective total hysterectomy in setting of ongoing menometrorrhagia. Currently with 3 days of vaginal bleeding and clotting requiring 3 tampons, 3 pads per day. Reports 2 weeks of dry productive cough, worse with supine positioning. 3 days of intermittent SOB, decreased urination. Recently discontinued lisinopril , now on Losartan for HTN. On Torsemide once daily x 1 month. Was on Toresmide four times a day but switched to once daily by Cardiology Dr. Suarez. Patient denies GONZALES, vision change, palpitations, orthopena, PND, leg swelling/ pain, N/V, F,C, CP, urinary complaints, hematuria, BPR, abdominal pain, diarrhea , constipation, lightheadedness, weakness, sensory changes. PMHx: as noted above ROS: as noted Allergies: Morphine Past History - Past Medical History Allergies/Adverse Reactions: Allergies Allergy/AdvReac Type Severity Reaction Status Date / Time morphine AdvReac Intermediate Itching Verified 01/16/19 19:12 Home Medications: Ambulatory Orders Aspirin [Aspirin EC] 81 mg PO DAILY 11/12/18 Carvedilol 25 mg PO BID 11/12/18 Ergocalciferol (Vitamin D2) [Vitamin D2] 50,000 unit PO WEEKLY 11/12/18 Ferrous Sulfate 325 mg PO BID 11/12/18 Levothyroxine [Synthroid -] 25 mcg PO DAILY 11/12/18 Pantoprazole Sodium [Protonix -] 20 mg PO DAILY 11/12/18 Furosemide [Lasix -] 20 mg PO DAILY #30 tablet 11/14/18 Albuterol Sulfate Inhaler - [Ventolin Hfa Inhaler -] 1 - 2 inh PO QID 01/16/19 Atorvastatin Ca [Lipitor] 10 mg PO HS 01/16/19 Losartan Potassium 100 mg PO DAILY 01/16/19 Anemia: Yes (iron deficiency) Asthma: Yes Cancer: No Cardiac Disorders: No CVA: No COPD: No CHF: Yes Dementia: No Diabetes: No GI Disorders: No Disorders: No HTN: Yes Hypercholesterolemia: Yes Liver Disease: No Seizures: No Thyroid Disease: Yes (hypo) - Surgical History Abdominal Surgery: No Appendectomy: No Cardiac Surgery: No Cholecystectomy: No Lung Surgery: No Neurologic Surgery: No Orthopedic Surgery: No - Immunization History Immunization Up to Date: Yes - Suicide/Smoking/Psychosocial Hx Smoking Status: No Smoking History: Never smoked Have you smoked in the past 12 months: No Number of Cigarettes Smoked Daily: 2 If you are a former smoker, when did you quit?: 12 years ago Hx Alcohol Use: No Drug/Substance Use Hx: No Substance Use Type: None Hx Substance Use Treatment: No Review of Systems - Review of Systems Comments:: 01/16/19 19:37 GENERAL/CONSTITUTIONAL: No fever or chills. No weakness. HEAD, EYES, EARS, NOSE AND THROAT: No change in vision. No ear pain or discharge. No sore throat. CARDIOVASCULAR: No chest pain or shortness of breath RESPIRATORY:+ cough, wheezing. No hemoptysis. GASTROINTESTINAL: No nausea, vomiting, diarrhea or constipation. GENITOURINARY: + Vaginal bleeding, decreased urination. No dysuria, frequency. MUSCULOSKELETAL:+ Flank Pain BL. No joint or muscle swelling or pain. No neck or back pain. SKIN: No rash NEUROLOGIC: No headache, vertigo, loss of consciousness, or change in strength/ sensation. ENDOCRINE: No increased thirst. No abnormal weight change HEMATOLOGIC/LYMPHATIC: No anemia, easy bleeding, or history of blood clots. ALLERGIC/IMMUNOLOGIC: No hives or skin allergy. *Physical Exam - Vital Signs Last Vital Signs Temp Pulse Resp BP Pulse Ox 98.8 F 72 18 95/62 97 01/16/19 19:12 01/16/19 19:12 01/16/19 19:12 01/16/19 19:12 01/16/19 19:12 - Physical Exam Comments: 01/16/19 19:37 GENERAL: Awake, alert, and fully oriented, in no acute distress HEAD: No signs of trauma, normocephalic, atraumatic EYES: PERRLA, EOMI, sclera anicteric, conjunctiva clear ENT: Hearing grossly normal, nares patent, oropharynx clear without exudates. Moist mucosa NECK: Normal ROM, supple, no lymphadenopathy, JVD, or masses LUNGS: + Diffuse mild exp rhonci. No distress, speaks full sentences, absent rales HEART: Regular rate and rhythm, normal S1 and S2, no murmurs, rubs or gallops, peripheral pulses normal and equal bilaterally. ABDOMEN:+ BL flank ttp. Soft, nontender, normoactive bowel sounds. No guarding , no rebound. No masses EXTREMITIES : Normal inspection, Normal range of motion, no edema. No clubbing or cyanosis. NEUROLOGICAL: Cranial nerves II through XII grossly intact. Normal speech, normal gait, no focal sensorimotor deficits SKIN: Warm, Dry, normal turgor, no rashes or lesions noted ED Treatment Course - LABORATORY CBC & Chemistry Diagram: 01/17/19 06:30 01/17/19 06:30 - ADDITIONAL ORDERS Additional order review: 01/17/19 00:05 Raffy Martin Name: LAMBERT ALVAREZ DEPARTMENT OF RADIOLOGY Phys: Anthony Melgar RESIDENT : 1965 Age: 53 Sex: F [facility] Acct: [id number] Loc: [address] Exam Date: 01/16/19 Status: TALIA Reddy [id number] Unit Number: [id number] EXAM#: TYPE/EXAM: RESULT: [id number] CT/SPIRAL- RENAL-STONE CT Abdomen and pelvis pain. CT scan of the abdomen pelvis without oral and intravenous contrast Coronal and sagittal reformatted images were obtained Compared to prior CT scan of the abdomen pelvis dated 06/03/2018 There are mild atelectatic changes in the medial aspect of the right middle lobe and lingular segment of the left upper lobe as well as minimal atelectatic changes in the right posterior costophrenic angle. The heart is within normal limits in size with a trace of pericardial effusion. Partially distended stomach limiting evaluation of its wall. The liver, spleen, pancreas, partially distended gallbladder, both adrenal glands and both kidneys appear unremarkable. There is no evidence of hydroureteronephrosis, renal or ureteral stone, bilaterally. Partially distended urinary bladder without wall thickening or intraluminal stones. There is no evidence of small bowel obstruction. Normal-appearing terminal ileum and appendix. Normal stool burden in the colon without wall thickening. Normal size uterus. Both ovaries were identified and are within normal limits in size. Perirectal and pericecal fat are clear. No free air , free fluid or gross enlarged lymph nodes are identified. Normal size abdominal aorta down through its bifurcation. Moderate degenerative disc disease at L4-L5 and L5-S1 level. Moderate to marked right and moderate left facet hypertrophy at L5-S1 level. There is mild compression of L4 superior endplate, on the right, likely chronic without compromise of the spinal canal. Impression: There is no evidence of hydroureteronephrosis, renal or ureteral stone, bilaterally. No CT evidence of an acute process in the abdomen and pelvis. Moderate degenerative disc disease at L4-L5 and L5-S1 level with minimal compression of the right L5 superior endplate, likely chronic. Reported By: Destiny Santos MD 01/16/195 Anthony Melgar Technologist: Jorge Nelson Transcribed Date/Time: 01/16/192344 Mailing Machine Operator: Destiny Santos Printed Date/Time: By: Medical Decision Making - Medical Decision Making 01/16/19 19:44 53 yo F with h/o HTN, CHF, fibroids, asthma, hypothyroidism, who p/w 3 days of stable, dull, crampy, BL flank pain and decreased urination, 3 days of vaginal bleeding and clotting, 3 days of SOB, 2 weeks of dry productive cough, worse with supine positioning. BP 95/62, vitals otherwise wnl, AF. Will assess for obstructive uropathy, renal dysfunction, acute blood loss anemia. Will consider acute CHF exxacerbation. R/o PNA, ACS, or demand ischemia. Will assess for cardiac dysarrythmias, hypoglycemia, electrolyte abnml, metabolic and toxic derangements, acid-base disturbances, infection. ED Course: 01/16/19 22:31 Laboratory Tests 01/16/19 01/16/19 01/16/19 20:40 20:40 20:40 WBC 8.3 Hgb 10.7 Hct 32.0 L D BUN 51 H Creatinine 2.5 H B-Natriuretic Peptide 50.4 Serum , Qual 01/16/19 20:40 WBC Hgb Hct BUN Creatinine B-Natriuretic Peptide Serum , Qual Negative 01/16/19 22:50 EKG: NSR with absent TAMMY, STD. Nml interval duration and axis. Nml R wave progression. Absent Q waves. 01/17/19 00:06 CTAP: There is no evidence of hydroureteronephrosis, renal or ureteral stone, bilaterally. No CT evidence of an acute process in the abdomen and pelvis. Moderate degenerative disc disease at L4-L5 and L5-S1 level with minimal compression of the right L5 superior endplate, likely chronic. 01/17/19 00:06 UA: Neg 01/17/19 00:34 Patient endorsed to medicine. Admit to [facility]. *DC/Admit/Observation/Transfer Diagnosis at time of Disposition: GERARD (acute kidney injury) - Discharge Dispostion Condition at time of disposition: Stable Decision to Admit order: Yes - Referrals - Patient Instructions - Post Discharge Activity
[2019-01-16] MEDS ORDERED: SODIUM CHLORIDE 1,000 ML IV STA (19:57)
--- NOTE | 2019-01-16 20:16 | PDOC ---
Attending Attestation - HPI HPI: The patient is a 53 year old female with history of CHF (20-25% EF, no clear etiology with "mostly normal" cath), HTN, iron deficiency anemia, obesity, fibroids, asthma, HLD, and hypothyroidism, who presents to the emergency department today complaining of bilateral flank pain, vaginal bleeding, decreased urinary output, and shortness of breath for 3 days. Patient describes her flank pain as dull and crampy in nature, without any aggravating or alleviating factors. Patient notes her OBGYN referred her to come to the ED for elevated creatine (1.7) while obtaining pre-operative labs (yesterday), as patient is going to undergoing elective total hysterectomy for her current menometrorrhagia. Patient notes her vaginal bleeding consists of heavy clotting , requiring 3 tampons/3 pads per day, with associated decreased urinary output. Patient additionally complains of intermittent shortness of breath, with associated dry cough. She notes her cough is exacerbated while lying on her back. Patient was recently switching from Lisinopril to Losartan for her hypertension because of concern of her cough. The patient denies chest pain, headache and dizziness. Denies fever, chills, nausea, vomit, diarrhea and constipation. Denies dysuria, urgency and hematuria. Allergies: Morphine Past surgical history: None reported Social history: PCP: Dr. Delia Urbina OBGYN: Dr. Shona Demarco Cardiology: Dr. Tori Peters 01/16/19 21:37 - Physicial Exam PE: GENERAL: Awake, alert, and oriented. The patient is in no acute distress. HEAD: Normal with no signs of trauma. EYES: PERRLA, EOMI, sclera anicteric, conjunctiva clear. ENT: Ears normal, nares patent, oropharynx clear without exudates. Moist mucous membranes. NECK: Normal range of motion, supple without lymphadenopathy, JVD, or masses. LUNGS: Breath sounds equal, clear to auscultation bilaterally. No wheezes, and no crackles. HEART:Regular rate and rhythm, normal S1 and S2 without murmur, rub or gallop. ABDOMEN: Soft, nontender, normoactive bowel sounds. No guarding, no rebound. No masses palpable. EXTREMITIES: Normal range of motion, no edema. No clubbing or cyanosis. No erythema, or tenderness. NEUROLOGICAL: Cranial nerves II through XII grossly intact. Normal speech. No focal neurological deficits. MUSCULOSKELETAL: Back non-tender to palpation, no CVA tenderness SKIN: Warm, Dry, normal turgor, no rashes or lesions noted. 01/16/19 21:38 - Medical Decision Making EXAM#: TYPE/EXAM: RESULT: [id number] CT/SPIRAL- RENAL-STONE CT Abdomen and pelvis pain. Impression: There is no evidence of hydroureteronephrosis, renal or ureteral stone, bilaterally. No CT evidence of an acute process in the abdomen and pelvis. Moderate degenerative disc disease at L4-L5 and L5-S1 level with minimal compression of the right L5 superior endplate, likely chronic. Reported By: Destiny Santos MD 01/16/19 23:45 Documentation prepared by COLLIN Saul, acting as medical affairs specialist for Susan Rachel MD. 01/17/19 03:48 <Calrey Ledezma - Last Filed: 01/17/19 03:48> - Resident Resident Name: Anthony Melgar - ED Attending Attestation I have performed the following: I have examined & evaluated the patient, The case was reviewed & discussed with the resident, I agree w/resident's findings & plan, Exceptions are as noted - Medical Decision Making 01/16/19 20:36 53 yo F h/o CHF, Asthma, Fibroid uterus who presents to the ER with a complaint of 3 days bilateral flank pain Pt had labs which demonstrated possible GERARD Pt has had vaginal bleeding Pt has had shortness of breath x 3 days Pt s/p adjustment of torsemide 1 month ago 01/16/19 22:29 Laboratory Tests 11/14/18 11/14/18 01/16/19 05:30 05:30 20:40 WBC 6.1 8.3 Hgb 9.4 L 10.7 Hct 27.4 L 32.0 L D Plt Count 203 D 273 D INR Anion Gap 5 L Creatinine 0.8 Serum , Qual 01/16/19 01/16/19 01/16/19 20:40 20:40 20:40 WBC Hgb Hct Plt Count INR 1.03 Anion Gap 11 Creatinine 2.5 H Serum , Qual Negative Awaiting spiral CT 01/16/19 23:03 Twelve-lead EKG was performed and reviewed by me. There is normal sinus rhythm with a normal rate of 72 bpm. The axis is normal. The intervals are normal. There are no ST or T wave abnormalities. Impression: Normal twelve-lead EKG CT: no obstructing stones, no hydronephrosis/hydro ureter Clinical impression: ACUTE KIDNEY INJURY <Susan Rachel - Last Filed: 01/17/19 20:06>
[2019-01-16 21:03] LABS: BASO % 0.4 % (0-2.0); EOS % 3.3 % (0-4.5); HEMOGLOBIN 10.7 GM/dL (10.7-15.3); LYMPH % 23.9 % (8-40); MCH 30.2 pg (25.7-33.7); MCHC 33.3 g/dl (32.0-36.0); MEAN CELL VOLUME 90.7 fl (80-96); MEAN PLT VOLUME 8.1 fl (7.5-11.1); MONO % 7.8 % (3.8-10.2); NEUT % 64.6 % (42.8-82.8); PLATELET COUNT 273 K/MM3 (134-434); RBC 3.53 M/mm3 (3.60-5.2); RDW 13.4 % (11.6-15.6); WHITE BLOOD COUNT 8.3 K/mm3 (4.0-10.0)
[2019-01-16 21:13] LABS: INR 1.03 (0.83-1.09); PROTHROMBIN TIME (PATIENT) 12.1 SEC (9.7-13.0)
[2019-01-16] MEDS ORDERED: ACETAMINOPHEN 1000 MG/100 ML VIAL (NON FORMULARY) IVPB ONE (21:20)
[2019-01-16] MEDS ORDERED: ACETAMINOPHEN INJECTION 100 ML IVPB ONE (21:23)
[2019-01-16 21:37] LABS: ALBUMIN 3.9 g/dl (3.4-5.0); ALK PHOS 87 U/L (45-117); ANION GAP 11 MMOL/L (8-16); BILIRUBIN,TOTAL 0.6 mg/dL (0.2-1); BLOOD UREA NITROGEN 51 mg/dL (7-18); CALCIUM 9.3 mg/dL (8.5-10.1); CHLORIDE 104 mmol/L (98-107); CO2 23 mmol/L (21-32); CREATININE 2.5 mg/dL (0.55-1.3); GLUCOSE,RANDOM 103 mg/dL (74-106); POTASSIUM 3.6 mmol/L (3.5-5.1); SGOT/AST 30 U/L (15-37); SGPT/ALT 36 U/L (13-61); SODIUM 139 mmol/L (136-145); TOT PROT 8.3 g/dl (6.4-8.2)
[2019-01-16 22:32] LABS: EPI CELLS 3.1 /HPF (0-5/HPF); PH,URINE 5.5 (5.0-8.0); URINE APPEARANCE CLEAR; URINE BACTERIA 128.7 /hpf (NEGATIVE); URINE BILIRUBIN NEGATIVE (NEGATIVE); URINE CASTS 1 /hpf (0-8); URINE COLOR YELLOW; URINE GLUCOSE (UA) NEGATIVE (NEGATIVE); URINE KETONE NEGATIVE (NEGATIVE); URINE LEUK ESTERASE NEGATIVE (NEGATIVE); URINE NITRITE NEGATIVE (NEGATIVE); URINE PROTEIN NEGATIVE (NEGATIVE); URINE RBC 1 /hpf (0-4); URINE UROBILINOGEN 0.2 mg/dL (0.2-1.0); URINE WBC 2 /hpf (0-5)
[2019-01-17] MEDS ORDERED: LORazepam 2 MG/ML SDV VIAL ONE (00:25)
--- NOTE | 2019-01-17 01:18 | PN ---
Teaching Attending Note Name of Resident: [place] ATTENDING PHYSICIAN STATEMENT I saw and evaluated the patient. I reviewed the resident's note and discussed the case with the resident. I agree with the resident's findings and plan as documented. SUBJECTIVE: Patient is a 53 year old woman with PMH HTN, obesity, CHF (diagnosed 08/2018), menometrorrhagia due to fibroids, asthma and hypothyroidism, who presents with bilateral flank pain for 4 days. Pain is dull, crampy, with no identifiable triggers or alleviators. Reports being advised by Forestry Biology Specialist to come to ER for elevated Creatinine 1.7 as seen on preop labs for hysterectomy. Scheduled for elective total hysterectomy in setting of ongoing menometrorrhagia. Currently with 3 days of vaginal bleeding and clotting requiring 3 tampons, 3 pads per day. Reports 2 weeks of dry productive cough, worse with supine positioning. Has had 3 days of intermittent SOB, decreased urination. Her PCP discontinued lisinopril when Azotemia was found. Now on Losartan for HTN. On Torsemide once daily x 1 month. Was on Toresmide four times a day but switched to once daily by Cardiology Dr. Suarez. Says she had 8 loose bowel movements yesterday and passed out yesterday in her kitchen and her daughter held her and prevented her from falling to the ground. Denies family history of kidney stones. 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 Does not smoke or use illicit drugs. Patient denies headache, vision change, palpitations , orthopena, PND, leg swelling/pain, nausea, vomiting, fever, chills, chest pain , hematuria, or abdominal pain. OBJECTIVE: Alert Vital Signs Period Temp Pulse Resp BP Sys/Sigala Pulse Ox Last 24 Hr 98.8 F 72 18 95/62 97 HEENT: No Jaundice, eye redness or discharge, PERRLA, EOMI. Normocephalic, atraumatic. External ears are normal and hearing is grossly intact. No nasal discharge. Neck: Supple, nontender. No palpable adenopathy or thyromegaly. No JVD Chest: Good effort. Clear to auscultation and percussion. Heart: Regular. No S3, rub or murmur Abdomen: Not distended, soft, nontender and no HSM. No rebound or guarding. Normal bowel sounds. Ext: Peripheral pulses intact. No leg edema. Low back tenderness. Skin: Warm and dry. No petechiae, rash or ecchymosis. Neuro: Alert. Oriented x3. CN 2-12 grossly intact. Sensation grossly intact in all four extremities and DTR are symmetric. Psych: Appropriate mood and affect. Good insight. Current Medications Generic Name Dose Route Start Last Admin Trade Name Freq PRN Reason Stop Dose Admin Acetaminophen 650 mg 01/17/19 02:14 Tylenol - PO Q6H PRN PAIN LEVEL 1-5 OR FEVER Methyl Salicylate 1 applic 01/17/19 10:00 Delmar-Schmitt - TP BID FRANNIE Miscellaneous 1 each 01/17/19 15:00 Lidoderm Patch Removal MC 01/17/19 15:01 ONCE ONE Home Medications Medication Instructions Recorded Aspirin [Aspirin EC] 81 mg PO DAILY 11/12/18 Carvedilol 25 mg PO BID 11/12/18 Ergocalciferol (Vitamin D2) 50,000 unit PO WEEKLY 11/12/18 [Vitamin D2] Ferrous Sulfate 325 mg PO BID 11/12/18 Levothyroxine [Synthroid -] 25 mcg PO DAILY 11/12/18 Pantoprazole Sodium [Protonix -] 20 mg PO DAILY 11/12/18 Furosemide [Lasix -] 20 mg PO DAILY #30 tablet 11/14/18 Albuterol Sulfate Inhaler - 1 - 2 inh PO QID 01/16/19 [Ventolin Hfa Inhaler -] Atorvastatin Ca [Lipitor] 10 mg PO HS 01/16/19 Losartan Potassium 100 mg PO DAILY 01/16/19 Abnormal Lab Results 01/16/19 01/16/19 01/16/19 20:40 20:40 22:00 RBC 3.53 L Hct 32.0 L D BUN 51 H Creatinine 2.5 H Total Protein 8.3 H Ur Specific [place] 1.008 L Urine Blood 1+ H ASSESSMENT AND PLAN: 1. Low back pain - Likely musculoskeletal or related to lumbar disc disease. CT scan of abd/pelvis showed degenerative lumbar disc disease, no kidney/ureteral stones or other gross abnormality. Will do pain control with warm compress, lidocaine patch, bengay and PO tramadol. If pain persists after the aforementioned measures will add prednisone and possibly get an MRI. Recent near syncope may be due to blood loss/excessive diuresis causing intravascular volume contraction. Will hold lasix and monitor daily standing weight in view of CHF. 2. Anemia - Possibly chiefly due to menometrorrhagia. Was already scheduled for hysterectomy. Do basic anemia work up including serial stool guaiacs, reticulocyte count and iron studies. 3. Obesity Counseled on the risks associated with obesity. Will provide patient all the necessary assistance, counseling and positive reinforcement to facilitate weight loss. Consult quotation checker. 4. CKD? - Urine SG of 1.008 if correct, suggests some underlying intrinsic kidney disease perhaps exacerbated by intravascular volume contraction. Lisinopril and lasix on hold. Monitor urine output and get kidney sonogram, PTH and phosphate. Will permit liberal oral fluid intake but avoid IV hydration in view of CHF history. Consult nephrology and avoid nephrotoxic agents such as NSAIDS, aminoglycosides, contrast dyes and certain Alternative medicine products. 5. DVT prophylaxis - SCDs, TEDs, Early ambulation 6. Advance directives - Full code
[2019-01-17] MEDS ORDERED: LIDOCAINE 5% TOPICAL PATCH TP ONE (02:13)
[2019-01-17] MEDS ORDERED: LIDOCAINE 5% TOPICAL PATCH ONE (02:26)
--- NOTE | 2019-01-17 03:00 | HP ---
CHIEF COMPLAINT:low back pain, heavy vaginal bleeding PCP: CArdio: OCCUPATIONAL MEDICINE OFFICER: Dr. Demarco HISTORY OF PRESENT ILLNESS: Patient is a 53 year old female with past medical history of HTN, obesity, systolic CHF, fibroids, asthma, Hypothyroidism, anxiety, presented to the ED with bilateral low back pain for 3 days. Patient reported the back pain started about 3 days ago and was described as "heavy" at the paraspinal area at the lower back. Patient also has history of fibroids presenting as menometrorrhagia. She was planned for KASSANDRA-Bilateral salpingectomy by her OCCUPATIONAL MEDICINE OFFICER and was sent to cardio for pre-op clearance. Yesterday, patient was seen by cardio, where Crea was noted to be 1.7 and Lisinopril was switched to Losartan. PAtient also reports nonproductive cough in the last week and shortness of breath relieved by albuterol inhaler. Otherwise, she denies fever, chills, headache, dizziness, chest pain, abdominal pain, diarrhea, urinary symptoms. ER course was notable for: (1)Spiral CT: no hydroureteronephrosis, no kidney or ureteral stones bilaterally , no acute abdominal/pelvic pathologies, degenerative disc disease L4-L5, L5-S1. (2)BUN/Cr 51/2.5 (3)BP 95/62 Recent Travel:denies PAST MEDICAL HISTORY: HTN obesity systolic CHF fibroids asthma Hypothyroidism anxiety PAST SURGICAL HISTORY: Social History: Smoking: previous smoker, quit 10 years ago ([id number]) Alcohol:occasional Drugs: denies Family History: Allergies morphine Adverse Reaction (Intermediate, Verified 01/16/19 19:12) Itching HOME MEDICATIONS: Home Medications Medication Instructions Recorded Aspirin [Aspirin EC] 81 mg PO DAILY 11/12/18 Carvedilol 25 mg PO BID 11/12/18 Ergocalciferol (Vitamin D2) 50,000 unit PO WEEKLY 11/12/18 [Vitamin D2] Ferrous Sulfate 325 mg PO BID 11/12/18 Levothyroxine [Synthroid -] 25 mcg PO DAILY 11/12/18 Pantoprazole Sodium [Protonix -] 20 mg PO DAILY 11/12/18 Furosemide [Lasix -] 20 mg PO DAILY #30 tablet 11/14/18 Albuterol Sulfate Inhaler - 1 - 2 inh PO QID 01/16/19 [Ventolin Hfa Inhaler -] Atorvastatin Ca [Lipitor] 10 mg PO HS 01/16/19 Losartan Potassium 100 mg PO DAILY 01/16/19 REVIEW OF SYSTEMS CONSTITUTIONAL: Absent: fever, chills, diaphoresis, generalized weakness, malaise, loss of appetite, weight change HEENT: Absent: rhinorrhea, nasal congestion, throat pain, throat swelling, difficulty swallowing, mouth swelling, ear pain, eye pain, visual changes CARDIOVASCULAR: Absent: chest pain, syncope, palpitations, irregular heart rate, lightheadedness , peripheral edema RESPIRATORY: cough, shortness of breath Absent: dyspnea with exertion, orthopnea, wheezing, stridor, hemoptysis GASTROINTESTINAL: Absent: abdominal pain, abdominal distension, nausea, vomiting, diarrhea, constipation, melena, hematochezia GENITOURINARY: heavy vaginal bleeding Absent: dysuria, frequency, urgency, hesitancy, hematuria, flank pain, genital pain MUSCULOSKELETAL: back pain Absent: myalgia, arthralgia, joint swelling,neck pain SKIN: Absent: rash, itching, pallor HEMATOLOGIC/IMMUNOLOGIC: Absent: easy bleeding, easy bruising, lymphadenopathy, frequent infections ENDOCRINE: Absent: unexplained weight gain, unexplained weight loss, heat intolerance, cold intolerance NEUROLOGIC: Absent: headache, focal weakness or paresthesias, dizziness, unsteady gait, seizure, mental status changes, bladder or bowel incontinence PSYCHIATRIC: Absent: anxiety, depression, suicidal or homicidal ideation, hallucinations. PHYSICAL EXAMINATION Vital Signs - 24 hr 01/16/19 19:12 Temperature 98.8 F Pulse Rate 72 Respiratory 18 Rate Blood Pressure 95/62 O2 Sat by Pulse 97 Oximetry (%) GENERAL: Awake, alert, and fully oriented, in no acute distress. HEAD: Normal with no signs of trauma. EYES: PERRLA, EOMI, sclera anicteric, conjunctiva clear. EARS, NOSE, THROAT: oropharynx clear without exudates. Moist mucous membranes. NECK: Normal range of motion, supple without lymphadenopathy, JVD, or masses. LUNGS: Breath sounds equal, clear to auscultation bilaterally. HEART: Regular rate and rhythm, normal S1 and S2 without murmur, rub or gallop. ABDOMEN: Soft, nontender, not distended, normoactive bowel sounds. MUSCULOSKELETAL: Normal range of motion at all joints. No CVA tenderness. + paraspinal tenderness at L5-S1 level. UPPER EXTREMITIES: 2+ pulses, warm, well-perfused. No peripheral edema. LOWER EXTREMITIES: 2+ pulses, warm, well-perfused. No peripheral edema. NEUROLOGICAL: Cranial nerves II-XII intact. Normal speech. Normal gait. PSYCHIATRIC: Cooperative. Good eye contact. Appropriate mood and affect. SKIN: Warm, dry, normal turgor, no rashes or lesions noted. Laboratory Results - last 24 hr 01/16/19 01/16/19 01/16/19 20:40 20:40 20:40 WBC 8.3 RBC 3.53 L Hgb 10.7 Hct 32.0 L D MCV 90.7 MCH 30.2 MCHC 33.3 RDW 13.4 Plt Count 273 D MPV 8.1 Absolute Neuts (auto) 5.3 Neutrophils % 64.6 Lymphocytes % 23.9 D Monocytes % 7.8 Eosinophils % 3.3 Basophils % 0.4 Nucleated RBC % 0 PT with INR INR Sodium 139 Potassium 3.6 Chloride 104 Carbon Dioxide 23 Anion Gap 11 BUN 51 H Creatinine 2.5 H Creat Clearance w eGFR 20.30 Random Glucose 103 Calcium 9.3 Total Bilirubin 0.6 AST 30 ALT 36 Alkaline Phosphatase 87 B-Natriuretic Peptide 50.4 Total Protein 8.3 H Albumin 3.9 Serum , Qual Urine Color Urine Appearance Urine pH Ur Specific [place] Urine Protein Urine Glucose (UA) Urine Ketones Urine Blood Urine Nitrite Urine Bilirubin Urine Urobilinogen Ur Leukocyte Esterase Urine WBC (Auto) Urine RBC (Auto) Urine Casts (Auto) U Epithel Cells (Auto) Urine Bacteria (Auto) Blood Type Antibody Screen 01/16/19 01/16/19 01/16/19 20:40 20:40 20:40 WBC RBC Hgb Hct MCV MCH MCHC RDW Plt Count MPV Absolute Neuts (auto) Neutrophils % Lymphocytes % Monocytes % Eosinophils % Basophils % Nucleated RBC % PT with INR 12.10 INR 1.03 Sodium Potassium Chloride Carbon Dioxide Anion Gap BUN Creatinine Creat Clearance w eGFR Random Glucose Calcium Total Bilirubin AST ALT Alkaline Phosphatase B-Natriuretic Peptide Total Protein Albumin Serum , Qual Negative Urine Color Urine Appearance Urine pH Ur Specific [place] Urine Protein Urine Glucose (UA) Urine Ketones Urine Blood Urine Nitrite Urine Bilirubin Urine Urobilinogen Ur Leukocyte Esterase Urine WBC (Auto) Urine RBC (Auto) Urine Casts (Auto) U Epithel Cells (Auto) Urine Bacteria (Auto) Blood Type O NEGATIVE Antibody Screen Negative 04/12/19 22:00 WBC RBC Hgb Hct MCV MCH MCHC RDW Plt Count MPV Absolute Neuts (auto) Neutrophils % Lymphocytes % Monocytes % Eosinophils % Basophils % Nucleated RBC % PT with INR INR Sodium Potassium Chloride Carbon Dioxide Anion Gap BUN Creatinine Creat Clearance w eGFR Random Glucose Calcium Total Bilirubin AST ALT Alkaline Phosphatase B-Natriuretic Peptide Total Protein Albumin Serum , Qual Urine Color Yellow Urine Appearance Clear Urine pH 5.5 Ur Specific [place] 1.008 L Urine Protein Negative Urine Glucose (UA) Negative Urine Ketones Negative Urine Blood 1+ H Urine Nitrite Negative Urine Bilirubin Negative Urine Urobilinogen 0.2 Ur Leukocyte Esterase Negative Urine WBC (Auto) 2 Urine RBC (Auto) 1 Urine Casts (Auto) 1 U Epithel Cells (Auto) 3.1 Urine Bacteria (Auto) 128.7 Blood Type Antibody Screen ASSESSMENT/PLAN: Patient is a 53 year old female with past medical history of HTN, obesity, systolic CHF, fibroids, asthma, Hypothyroidism, anxiety, presented to the ED with bilateral low back pain for 3 days, noted to have elevated Cr on recent labs. #Acute kidney injury, likely intrarenal -BUN/Cr 51/2.5, UA sp gr 1.008 -Spiral CT: no hydroureteronephrosis, no kidney or ureteral stones bilaterally -PTH, calcium and phosphate ordered -Renal US -I & O -Will avoid IV hydration with hx of CHF, encourage increased oral fluid intake -Nephrology (Dr. Dominique) consulted. -Will hold losartan and Lasix -Avoid nephrotoxic agents such as NSAIds, aminoglycosides and contrast. #Low back pain -likely MSK -will given Lidocaine patch and tylenol prn as patient is allergic to morphine -Avoid NSAIDs #Heavy vaginal bleeding 2/2 fibroids -H/H stable, will continue to monitor -consider consult for OCCUPATIONAL MEDICINE OFFICER #Anemia: -likely from heavy vaginal bleeding -Continue Ferrous sulfate 325 BId #Asthma -Albuterol neb q6h PRN #HTN -Will continue Carvedilol 25mg BID with parameters #systolic CHF -Echo (11/13/18): EF 40-45%, LV systolic function mild to moderately reduced, mild-mod global hypokinesis of LV, RV normal, trace TR -Will hold Lasix and Losartan right now #Hypothyroidism -Continue Synthroid 25mcg daily #FEN -Not on any standing fluids -Encourage increased oral fluid intake -Electrolytes wnl, routine bmp monitoring -Sodium controlled diet #Prophylaxis -SCDs, current heavy vaginal bleed #Disposition -full code -med surg Visit type - Emergency Visit Emergency Visit: Yes ED Registration Date: 01/17/19 Care time: The patient presented to the Emergency Department on the above date and was hospitalized for further evaluation of their emergent condition. - New Patient This patient is new to me today: Yes Date on this admission: 01/17/19 - Critical Care Critical Care patient: No
[2019-01-17] MEDS ORDERED: ALBUTEROL SO4 0.083% IH SOL 2.5 MG/3 ML VIAL.NEB. NEB ONE ×2 (03:22→12:30)
[2019-01-17] MEDS ORDERED: POTASSIUM CHLORIDE TABS 20 MEQ TABLET.ER (FP) PO ONE ×3 (03:32→06:09)
[2019-01-17] MEDS ORDERED: LEVOTHYROXINE NA 25 MCG TABLET (FP) ONE (06:10)
[2019-01-17] MEDS: LEVOTHYROXINE NA 25 MCG TABLET (FP) PO SCH (06:15)
[2019-01-17 07:31] LABS: BASO % 0.6 % (0-2.0); EOS % 3.5 % (0-4.5); HEMATOCRIT 27.8 % (32.4-45.2); HEMOGLOBIN 9.5 GM/dL (10.7-15.3); LYMPH % 34.5 % (8-40); MCH 30.8 pg (25.7-33.7); MCHC 34.1 g/dl (32.0-36.0); MEAN CELL VOLUME 90.3 fl (80-96); MEAN PLT VOLUME 8.1 fl (7.5-11.1); MONO % 9.6 % (3.8-10.2); NEUT % 51.8 % (42.8-82.8); PLATELET COUNT 239 K/MM3 (134-434); RBC 3.08 M/mm3 (3.60-5.2); RDW 13.3 % (11.6-15.6); WHITE BLOOD COUNT 6.3 K/mm3 (4.0-10.0)
[2019-01-17 08:11] LABS: ALBUMIN 3.4 g/dl (3.4-5.0); ALK PHOS 67 U/L (45-117); ANION GAP 9 MMOL/L (8-16); BILIRUBIN,TOTAL 0.4 mg/dL (0.2-1); BLOOD UREA NITROGEN 50 mg/dL (7-18); CALCIUM 8.7 mg/dL (8.5-10.1); CHLORIDE 108 mmol/L (98-107); CO2 24 mmol/L (21-32); CREATININE 1.7 mg/dL (0.55-1.3); GLUCOSE,RANDOM 95 mg/dL (74-106); PHOSPHOROUS 4.9 mg/dL (2.5-4.9); POTASSIUM 3.6 mmol/L (3.5-5.1); SGOT/AST 20 U/L (15-37); SGPT/ALT 31 U/L (13-61); SODIUM 140 mmol/L (136-145); TOT PROT 7.2 g/dl (6.4-8.2)
[2019-01-17] MEDS ORDERED: ACETAMINOPHEN 325 MG TABLET (FP) ONE (09:13)
[2019-01-17] MEDS: ACETAMINOPHEN 325 MG TABLET (FP) PO PRN ×2 (09:22→18:27)
[2019-01-17] MEDS: METHYL SALICYLATE/MENTHOL OINT 30 GM TUBE TP SCH ×2 (09:53→21:35)
[2019-01-17] MEDS: FERROUS SO4 325 MG TABLET (FP) PO SCH ×2 (09:53→21:35)
[2019-01-17] MEDS: PANTOPRAZOLE 20 MG TABLET (FP) PO SCH (09:53)
[2019-01-17] MEDS: ASPIRIN COATED 81 MG TABLET.EC PO SCH (09:53)
[2019-01-17] MEDS ORDERED: CARVEDILOL 25 MG TABLET (FP) PO SCH (10:00)
[2019-01-17] MEDS: ALBUTEROL SO4 0.083% IH SOL 2.5 MG/3 ML VIAL.NEB. NEB PRN ×2 (12:38→20:18)
--- NOTE | 2019-01-17 13:37 | PN ---
Physical Exam: SUBJECTIVE: Patient seen and examined, dizziness improved. Ongoing periods with heavy bleeding, reports passes clots with need to change 4 pads a day. no chest pain, dyspnea, dizziness noted Bilateral flank pain with dysuria and urinary dribbling/urgency. OBJECTIVE: Vital Signs Period Temp Pulse Resp BP Sys/Sigala Pulse Ox Last 24 Hr 97.5 F-98.8 F 62-84 18-20 77-105/45-71 95-97 Intake & Output 01/14/19 01/15/19 01/16/19 01/17/19 23:59 23:59 23:59 23:59 Intake Total 270 Balance 270 Weight 194 lb GENERAL: The patient is awake, alert, and fully oriented, in no acute distress, pallor. HEAD: Normal with no signs of trauma. EYES: PERRL, extraocular movements intact, sclera anicteric, conjunctiva clear. No ptosis. ENT: Ears normal, nares patent, oropharynx clear without exudates, moist mucous membranes. NECK: Trachea midline, full range of motion, supple. LUNGS: Breath sounds equal, clear to auscultation bilaterally, no wheezes, no crackles, no accessory muscle use. HEART: Regular rate and rhythm, S1, S2 ABDOMEN: Soft, nontender, nondistended, normoactive bowel sounds, no guarding, no rebound,no CVA tenderness EXTREMITIES: 2+ pulses, warm, well-perfused, no edema. PSYCH: Normal mood, normal affect. SKIN: Warm, dry, normal turgor, no rashes or lesions noted Laboratory Results - last 24 hr 01/16/19 01/16/19 01/16/19 20:40 20:40 20:40 WBC 8.3 RBC 3.53 L Hgb 10.7 Hct 32.0 L D MCV 90.7 MCH 30.2 MCHC 33.3 RDW 13.4 Plt Count 273 D MPV 8.1 Absolute Neuts (auto) 5.3 Neutrophils % 64.6 Lymphocytes % 23.9 D Monocytes % 7.8 Eosinophils % 3.3 Basophils % 0.4 Nucleated RBC % 0 PT with INR INR Sodium 139 Potassium 3.6 Chloride 104 Carbon Dioxide 23 Anion Gap 11 BUN 51 H Creatinine 2.5 H Creat Clearance w eGFR 20.30 Random Glucose 103 Calcium 9.3 Phosphorus Magnesium Total Bilirubin 0.6 AST 30 ALT 36 Alkaline Phosphatase 87 B-Natriuretic Peptide 50.4 Total Protein 8.3 H Albumin 3.9 Serum , Qual Urine Color Urine Appearance Urine pH Ur Specific [place] Urine Protein Urine Glucose (UA) Urine Ketones Urine Blood Urine Nitrite Urine Bilirubin Urine Urobilinogen Ur Leukocyte Esterase Urine WBC (Auto) Urine RBC (Auto) Urine Casts (Auto) U Epithel Cells (Auto) Urine Bacteria (Auto) Blood Type Antibody Screen Crossmatch 01/16/19 01/16/19 01/16/19 20:40 20:40 20:40 WBC RBC Hgb Hct MCV MCH MCHC RDW Plt Count MPV Absolute Neuts (auto) Neutrophils % Lymphocytes % Monocytes % Eosinophils % Basophils % Nucleated RBC % PT with INR 12.10 INR 1.03 Sodium Potassium Chloride Carbon Dioxide Anion Gap BUN Creatinine Creat Clearance w eGFR Random Glucose Calcium Phosphorus Magnesium Total Bilirubin AST ALT Alkaline Phosphatase B-Natriuretic Peptide Total Protein Albumin Serum , Qual Negative Urine Color Urine Appearance Urine pH Ur Specific [place] Urine Protein Urine Glucose (UA) Urine Ketones Urine Blood Urine Nitrite Urine Bilirubin Urine Urobilinogen Ur Leukocyte Esterase Urine WBC (Auto) Urine RBC (Auto) Urine Casts (Auto) U Epithel Cells (Auto) Urine Bacteria (Auto) Blood Type O NEGATIVE Antibody Screen Negative Crossmatch See Detail 01/16/19 01/17/19 01/17/19 22:00 06:30 06:30 WBC 6.3 RBC 3.08 L Hgb 9.5 L Hct 27.8 L MCV 90.3 MCH 30.8 MCHC 34.1 RDW 13.3 Plt Count 239 MPV 8.1 Absolute Neuts (auto) 3.3 Neutrophils % 51.8 Lymphocytes % 34.5 D Monocytes % 9.6 Eosinophils % 3.5 Basophils % 0.6 Nucleated RBC % 0 PT with INR INR Sodium 140 Potassium 3.6 Chloride 108 H Carbon Dioxide 24 Anion Gap 9 BUN 50 H Creatinine 1.7 H Creat Clearance w eGFR 31.69 Random Glucose 95 Calcium 8.7 Phosphorus 4.9 Magnesium 2.0 Total Bilirubin 0.4 AST 20 ALT 31 Alkaline Phosphatase 67 B-Natriuretic Peptide Total Protein 7.2 Albumin 3.4 Serum , Qual Urine Color Yellow Urine Appearance Clear Urine pH 5.5 Ur Specific [place] 1.008 L Urine Protein Negative Urine Glucose (UA) Negative Urine Ketones Negative Urine Blood 1+ H Urine Nitrite Negative Urine Bilirubin Negative Urine Urobilinogen 0.2 Ur Leukocyte Esterase Negative Urine WBC (Auto) 2 Urine RBC (Auto) 1 Urine Casts (Auto) 1 U Epithel Cells (Auto) 3.1 Urine Bacteria (Auto) 128.7 Blood Type Antibody Screen Crossmatch Home Medications Medication Instructions Recorded Aspirin [Aspirin EC] 81 mg PO DAILY 11/12/18 Carvedilol 25 mg PO BID 11/12/18 Ergocalciferol (Vitamin D2) 50,000 unit PO WEEKLY 11/12/18 [Vitamin D2] Ferrous Sulfate 325 mg PO BID 11/12/18 Levothyroxine [Synthroid -] 25 mcg PO DAILY 11/12/18 Pantoprazole Sodium [Protonix -] 20 mg PO DAILY 11/12/18 Furosemide [Lasix -] 20 mg PO DAILY #30 tablet 11/14/18 Albuterol Sulfate Inhaler - 1 - 2 inh PO QID 01/16/19 [Ventolin Hfa Inhaler -] Atorvastatin Ca [Lipitor] 10 mg PO HS 01/16/19 Losartan Potassium 100 mg PO DAILY 01/16/19 Active Medications Generic Name Dose Route Start Last Admin Trade Name Freq PRN Reason Stop Dose Admin Acetaminophen 650 mg 01/17/19 02:14 01/17/19 09:22 Tylenol - PO 650 mg Q6H PRN Administration PAIN LEVEL 1-5 OR FEVER Albuterol Sulfate 1 amp 01/17/19 03:17 01/17/19 12:38 Ventolin 0.083% Nebulizer Soln - NEB 1 amp Q6H PRN Administration SHORT OF BREATH/WHEEZING Aspirin 81 mg 01/17/19 10:00 01/17/19 09:53 Ecotrin - PO 81 mg DAILY [facility] Administration Atorvastatin Calcium 10 mg 01/17/19 22:00 Lipitor - PO HS [facility] Carvedilol 25 mg 01/17/19 10:00 Coreg - PO BID [facility] Ergocalciferol 50,000 unit 01/23/19 10:00 Drisdol - PO Fr@1000 [facility] Ferrous Sulfate 325 mg 01/17/19 10:00 01/17/19 09:53 Feosol - PO 325 mg BID [facility] Administration Levothyroxine Sodium 25 mcg 01/17/19 07:00 01/17/19 06:15 Synthroid - PO 25 mcg DAILY@0700 [facility] Administration Methyl Salicylate 1 applic 01/17/19 10:00 01/17/19 09:53 Delmar-Schmitt - TP Not Given BID FRANNIE Miscellaneous 1 each 01/17/19 15:00 Lidoderm Patch Removal MC 01/17/19 15:01 ONCE ONE Pantoprazole Sodium 20 mg 01/17/19 10:00 01/17/19 09:53 Protonix - PO 20 mg DAILY FRANNIE Administration CT A/P results reviewed ASSESSMENT/PLAN: 53 yof with PMHx of HTN, hypothyroidism, asthma, obesity, nonischemic cardiomyopathy, chronic systolic HF (last Echo 11/2018 EF 40-45%), cath 08/2018 with non obstructive dz, dizziness/syncope in felt from vasovagal/over diuresis admitted with lower back pain and GERARD. -GERARD, suspect prerenal from hypotension, poor oral intake/continuation of lasix/ ARB -Acute on chronic blood loss anemia from menorrhagia/fibroids -Chronic systolic HF (last Echo 11/2018 EF 40-45%) -Nonischemic cardiomyopathy -Hypothyroidism -HTN -Asthma -Obesity Plan: Reports subjective fevers with cough/poor oral intake over last 1 week. ALso was on lasix reportedly at 80 mg daily that was decreased to 20 mg daily 2 days ago, per patient Recent cough, with change in lisinopril to losartan. Suspect all above combined with ongoing heavy menstrual blood loss contributed to hypotension/hypovolumia and GERARD. Cr improved with hydration. Await renal input. Will transfuse 1 unit PRBC given ongoing blood loss. Fe panel prior. Additional IVF post transfusion based on hemodynamics, oral intake and renal function. ua and CT A/P neg for concerns. Hold lasix/losartan. Continue ASA, decrease coreg to 12.5 mg BID as tolerated. Continue ASA/levothyroxine/statin/Fe suppl. DVTPPX SCDs for now Dispo in 1-2 days if renal function improves and no new concerns. Plan discussed with patient and nursing in detail, all questions answered. Visit type - Emergency Visit Emergency Visit: Yes ED Registration Date: 01/17/19 Care time: The patient presented to the Emergency Department on the above date and was hospitalized for further evaluation of their emergent condition. - New Patient This patient is new to me today: Yes Date on this admission: 01/17/19 - Critical Care Critical Care patient: No - Discharge Referral Referred to [facility] Med P.C.: No
[2019-01-17] MEDS ORDERED: LIDOCAINE PATCH REMOVAL MC ONE (15:00)
--- NOTE | 2019-01-17 17:50 | CONSULT ---
Consult Consult Specialty:: Nephrology Reason for Consultation:: GERARD - History of Present Illness Chief Complaint: sent in for abnormal creatinine History of Present Illness: Pt is a 53 year old female with pmhx of obesity, CHF, HTN, asthma, hypothyroidism and uterine fibroids who was sent in to the ER for elevated creatinine of 1.7. She denies history of CKD. She has had vaginal bleeding that is active. She was getting preop labs for a hysterectomy. She was also on lasix for CHF. She says that her blood pressure was low and she felt that she was going to pass out several times. She was on lisinopril which was changed to losartan. She was also on torsemide. - History Source History Provided By: Patient, Medical Record - Past Medical History Cardio/Vascular: Yes: CHF, HTN Pulmonary: Yes: Asthma Gastrointestinal: Yes: Ulcerative Colitis Renal/: Yes: Other (fibroids) ...LMP: 08/08/17 Heme/Onc: Yes: Anemia - Past Surgical History Past Surgical History: Yes: Tubal Ligation - Alcohol/Substance Use Hx Alcohol Use: No History of Substance Use: reports: None - Smoking History Smoking history: Never smoked Have you smoked in the past 12 months: No Aproximately how many cigarettes per day: 2 If you are a former smoker, when did you quit?: 12 years ago - Social History ADL: Independent History of Recent Travel: No Home Medications - Allergies Allergies/Adverse Reactions: Allergies Allergy/AdvReac Type Severity Reaction Status Date / Time morphine AdvReac Intermediate Itching Verified 01/16/19 19:12 - Home Medications Home Medications: Ambulatory Orders Aspirin [Aspirin EC] 81 mg PO DAILY 11/12/18 Carvedilol 25 mg PO BID 11/12/18 Ergocalciferol (Vitamin D2) [Vitamin D2] 50,000 unit PO WEEKLY 11/12/18 Ferrous Sulfate 325 mg PO BID 11/12/18 Levothyroxine [Synthroid -] 25 mcg PO DAILY 11/12/18 Pantoprazole Sodium [Protonix -] 20 mg PO DAILY 11/12/18 Furosemide [Lasix -] 20 mg PO DAILY #30 tablet 11/14/18 Albuterol Sulfate Inhaler - [Ventolin Hfa Inhaler -] 1 - 2 inh PO QID 01/16/19 Atorvastatin Ca [Lipitor] 10 mg PO HS 01/16/19 Losartan Potassium 100 mg PO DAILY 01/16/19 Family Disease History - Family Disease History Family Disease History: Diabetes: Mother, Heart Disease: Father (renal failure) , Other: Father Review of Systems - Review of Systems Constitutional: reports: Malaise. denies: Chills Eyes: reports: No Symptoms HENT: reports: No Symptoms Neck: reports: No Symptoms Cardiovascular: reports: Shortness of Breath. denies: Edema Respiratory: reports: SOB on Exertion Gastrointestinal: reports: No Symptoms Genitourinary: reports: Vaginal Bleeding Musculoskeletal: reports: No Symptoms Integumentary: reports: No Symptoms Neurological: reports: No Symptoms Endocrine: reports: No Symptoms Hematology/Lymphatic: reports: No Symptoms Psychiatric: reports: No Symptoms Physical Exam Vital Signs: Vital Signs Temperature 98.2 F 01/17/19 16:44 Pulse Rate 66 01/17/19 16:44 Respiratory Rate 18 01/17/19 16:44 Blood Pressure 103/57 L 01/17/19 16:44 O2 Sat by Pulse Oximetry (%) 98 01/17/19 16:44 Constitutional: Yes: Calm Eyes: Yes: Conjunctiva Clear HENT: Yes: Atraumatic Cardiovascular: Yes: S1, S2 Respiratory: Yes: CTA Bilaterally Gastrointestinal: Yes: Soft Renal/: Yes: WNL Musculoskeletal: Yes: WNL Edema: No Neurological: Yes: Oriented Psychiatric: Yes: Oriented Labs: CBC, BMP 01/17/19 06:30 01/17/19 06:30 Laboratory Tests 08/12/18 11/12/18 01/16/19 05:30 14:16 20:40 Hgb 10.7 Creatinine 0.9 1.0 Urine Protein Urine Blood Ur Random Sodium 01/16/19 01/16/19 01/17/19 20:40 22:00 06:30 Hgb 9.5 L Creatinine 2.5 H Urine Protein Negative Urine Blood 1+ H Ur Random Sodium 01/17/19 01/17/19 06:30 16:07 Hgb Creatinine 1.7 H Urine Protein Urine Blood Ur Random Sodium 19 L Imaging - Results Chest X-ray: Report Reviewed Cat Scan: Report Reviewed Ultrasound: Report Reviewed Problem List - Problems (1) GERARD (acute kidney injury) Code(s): N17.9 - ACUTE KIDNEY FAILURE, UNSPECIFIED (2) CHF (congestive heart failure) Code(s): I50.9 - HEART FAILURE, UNSPECIFIED Qualifiers: Heart failure type: systolic Heart failure chronicity: chronic Qualified Code(s): I50.22 - Chronic systolic (congestive) heart failure (3) Hypothyroidism Code(s): E03.9 - HYPOTHYROIDISM, UNSPECIFIED Assessment/Plan Current Medications Generic Name Dose Route Start Last Admin Trade Name Freq PRN Reason Stop Dose Admin Acetaminophen 650 mg 01/17/19 02:14 01/17/19 09:22 Tylenol - PO 650 mg Q6H PRN Administration PAIN LEVEL 1-5 OR FEVER Albuterol Sulfate 1 amp 01/17/19 03:17 01/17/19 12:38 Ventolin 0.083% Nebulizer Soln - NEB 1 amp Q6H PRN Administration SHORT OF BREATH/WHEEZING Aspirin 81 mg 01/17/19 10:00 01/17/19 09:53 Ecotrin - PO 81 mg DAILY FRANNIE Administration Atorvastatin Calcium 10 mg 01/17/19 22:00 Lipitor - PO HS FRANNIE Carvedilol 12.5 mg 01/17/19 22:00 Coreg - PO BID FRANNIE Ergocalciferol 50,000 unit 01/23/19 10:00 Drisdol - PO Fr@1000 FRANNIE Ferrous Sulfate 325 mg 01/17/19 10:00 01/17/19 09:53 Feosol - PO 325 mg BID FRANNIE Administration Levothyroxine Sodium 25 mcg 01/17/19 07:00 01/17/19 06:15 Synthroid - PO 25 mcg DAILY@0700 FRANNIE Administration Methyl Salicylate 1 applic 01/17/19 10:00 01/17/19 09:53 Delmar-Schmitt - TP Not Given BID FRANNIE Pantoprazole Sodium 20 mg 01/17/19 10:00 01/17/19 09:53 Protonix - PO 20 mg DAILY FRANNIE Administration Impression 1. GERARD 2. hypotension 3. anemia 4. uterine fibroids 5. vaginal bleed 6. hx of CHF 7. hypothyroidism 8. hyperlipidemia Plan - renal function is improving - likely etiology is pre-renal disease in the setting of low urine sodium along with hypotension and vaginal bleeding - hold losartan - hold torsemide - monitor volume status closely as she is getting prbc - hold coreg if bp remain low - u/s negative for obstruction - renal function is improving - repeat labs in am Dr Dominique
[2019-01-17] MEDS: CARVEDILOL 12.5 MG TABLET (FP) PO SCH (21:35)
[2019-01-17] MEDS ORDERED: ATORVASTATIN CA 10 MG TABLET (FP) PO SCH (22:00)
[2019-01-17] MEDS ORDERED: CYCLOBENZAPRINE HCL 10 MG TABLET (FP) PO ONE (22:30)
[2019-01-18] MEDS ORDERED: CYCLOBENZAPRINE HCL 10 MG TABLET (FP) PO ONE (00:45)
[2019-01-18] MEDS: LEVOTHYROXINE NA 25 MCG TABLET (FP) PO SCH (06:04)
[2019-01-18] MEDS: ALBUTEROL SO4 0.083% IH SOL 2.5 MG/3 ML VIAL.NEB. NEB PRN (06:14)
[2019-01-18 06:58] LABS: SERUM IRON SATURATION 10 % (15-55); TOTAL IRON BINDING CAPACITY 392 ug/dL (250-450); UIBC 353 ug/dL (131-425)
[2019-01-18 08:02] LABS: ANION GAP 6 MMOL/L (8-16); BASO % 0.8 % (0-2.0); BLOOD UREA NITROGEN 34 mg/dL (7-18); CALCIUM 8.9 mg/dL (8.5-10.1); CHLORIDE 110 mmol/L (98-107); CO2 24 mmol/L (21-32); CREATININE 1.2 mg/dL (0.55-1.3); EOS % 4.2 % (0-4.5); GLUCOSE,RANDOM 109 mg/dL (74-106); HEMATOCRIT 29.7 % (32.4-45.2); LYMPH % 37.9 % (8-40); MAGNESIUM 2.1 mg/dL (1.8-2.4); MCH 30.7 pg (25.7-33.7); MCHC 33.8 g/dl (32.0-36.0); MEAN CELL VOLUME 90.8 fl (80-96); MEAN PLT VOLUME 8.4 fl (7.5-11.1); MONO % 10.6 % (3.8-10.2); NEUT % 46.5 % (42.8-82.8); PHOSPHOROUS 2.9 mg/dL (2.5-4.9); PLATELET COUNT 222 K/MM3 (134-434); POTASSIUM 3.9 mmol/L (3.5-5.1); RBC 3.27 M/mm3 (3.60-5.2); RDW 13.3 % (11.6-15.6); SODIUM 141 mmol/L (136-145); WHITE BLOOD COUNT 5.9 K/mm3 (4.0-10.0)
[2019-01-18] MEDS ORDERED: PT OWN MED DRAWER 7, Y5N ONE (09:29)
[2019-01-18] MEDS: FERROUS SO4 325 MG TABLET (FP) PO SCH (10:01)
[2019-01-18] MEDS: CARVEDILOL 12.5 MG TABLET (FP) PO SCH (10:01)
[2019-01-18] MEDS: ASPIRIN COATED 81 MG TABLET.EC PO SCH (10:01)
[2019-01-18] MEDS: PANTOPRAZOLE 20 MG TABLET (FP) PO SCH (10:01)
[2019-01-18] MEDS: METHYL SALICYLATE/MENTHOL OINT 30 GM TUBE TP SCH (10:02)
[2019-01-18] MEDS: ACETAMINOPHEN 325 MG TABLET (FP) PO PRN (10:02)
--- NOTE | 2019-01-18 12:28 | DS ---
Physical Exam: SUBJECTIVE: Patient seen and examined, feels well, still with ongoing menstrual blood loss. No chest pain, dyspnea, orthopnea, PND or leg swelling. Tolerating diet well.Bilateral flank discomfort that improves with nieves-russ and warm packs OBJECTIVE: Vital Signs Period Temp Pulse Resp BP Sys/Sigala Pulse Ox Last 24 Hr 97.7 F-99.3 F 63-75 16-20 93-130/53-71 95-98 Intake & Output 01/15/19 01/16/19 01/17/19 01/18/19 23:59 23:59 23:59 23:59 Intake Total 720 350 Balance 720 350 Weight 194 lb 198 lb 204 lb PHYSICAL EXAM GENERAL: The patient is awake, alert, and fully oriented, in no acute distress, pallor, no respiratory distress, able to speak in full sentences. HEAD: Normal with no signs of trauma. EYES: PERRL, extraocular movements intact, sclera anicteric, conjunctiva clear. No ptosis. ENT: Ears normal, nares patent, oropharynx clear without exudates, moist mucous membranes. NECK: Trachea midline, full range of motion, supple. LUNGS: Breath sounds equal, clear to auscultation bilaterally, no wheezes, no crackles, no accessory muscle use. HEART: Regular rate and rhythm, S1, S2 ABDOMEN: Soft, nontender, nondistended, normoactive bowel sounds, no guarding, no rebound,no CVA tenderness EXTREMITIES: 2+ pulses, warm, well-perfused, no edema. PSYCH: Normal mood, normal affect. SKIN: Warm, dry, normal turgor, no rashes or lesions noted LABS Laboratory Results - last 24 hr 01/16/19 01/17/19 01/17/19 20:40 06:30 14:00 WBC RBC Hgb Hct MCV MCH MCHC RDW Plt Count MPV Absolute Neuts (auto) Neutrophils % Lymphocytes % Monocytes % Eosinophils % Basophils % Nucleated RBC % Sodium 140 Potassium 3.6 Chloride 108 H Carbon Dioxide 24 Anion Gap 9 BUN 50 H Creatinine 1.7 H Creat Clearance w eGFR 31.69 Random Glucose 95 Calcium 8.7 Phosphorus 4.9 Magnesium 2.0 Iron 39 TIBC 392 Iron Saturation 10 L Ferritin 120.0 Total Bilirubin 0.4 AST 20 ALT 31 Alkaline Phosphatase 67 Total Protein 7.2 Albumin 3.4 Urine Osmolality Ur Random Sodium Ur Random Potassium Ur Random Chloride Blood Type O NEGATIVE Antibody Screen Negative Crossmatch See Detail 01/17/19 01/17/19 01/18/19 16:07 16:07 06:30 WBC 5.9 RBC 3.27 L Hgb 10.0 L Hct 29.7 L MCV 90.8 MCH 30.7 MCHC 33.8 RDW 13.3 Plt Count 222 MPV 8.4 Absolute Neuts (auto) 2.8 Neutrophils % 46.5 Lymphocytes % 37.9 Monocytes % 10.6 H Eosinophils % 4.2 Basophils % 0.8 Nucleated RBC % 0 Sodium Potassium Chloride Carbon Dioxide Anion Gap BUN Creatinine Creat Clearance w eGFR Random Glucose Calcium Phosphorus Magnesium Iron TIBC Iron Saturation Ferritin Total Bilirubin AST ALT Alkaline Phosphatase Total Protein Albumin Urine Osmolality 391 Ur Random Sodium 19 L Ur Random Potassium 22.2 L Ur Random Chloride < 11 L Blood Type Antibody Screen Crossmatch 01/18/19 06:30 WBC RBC Hgb Hct MCV MCH MCHC RDW Plt Count MPV Absolute Neuts (auto) Neutrophils % Lymphocytes % Monocytes % Eosinophils % Basophils % Nucleated RBC % Sodium 141 Potassium 3.9 Chloride 110 H Carbon Dioxide 24 Anion Gap 6 L BUN 34 H Creatinine 1.2 Creat Clearance w eGFR 47.36 Random Glucose 109 H Calcium 8.9 Phosphorus 2.9 Magnesium 2.1 Iron TIBC Iron Saturation Ferritin Total Bilirubin AST ALT Alkaline Phosphatase Total Protein Albumin Urine Osmolality Ur Random Sodium Ur Random Potassium Ur Random Chloride Blood Type Antibody Screen Crossmatch CT A/P spiral study: CT scan of the abdomen pelvis without oral and intravenous contrast Coronal and sagittal reformatted images were obtained Compared to prior CT scan of the abdomen pelvis dated 06/03/2018 There are mild atelectatic changes in the medial aspect of the right middle lobe and lingular segment of the left upper lobe as well as minimal atelectatic changes in the right posterior costophrenic angle. The heart is within normal limits in size with a trace of pericardial effusion. Partially distended stomach limiting evaluation of its wall. The liver, spleen, pancreas, partially distended gallbladder, both adrenal glands and both kidneys appear unremarkable. There is no evidence of hydroureteronephrosis, renal or ureteral stone, bilaterally. Partially distended urinary bladder without wall thickening or intraluminal stones. There is no evidence of small bowel obstruction. Normal-appearing terminal ileum and appendix. Normal stool burden in the colon without wall thickening. Normal size uterus. Both ovaries were identified and are within normal limits in size. Perirectal and pericecal fat are clear. No free air , free fluid or gross enlarged lymph nodes are identified. Normal size abdominal aorta down through its bifurcation. Moderate degenerative disc disease at L4-L5 and L5-S1 level. Moderate to marked right and moderate left facet hypertrophy at L5-S1 level. There is mild compression of L4 superior endplate, on the right, likely chronic without compromise of the spinal canal. Impression: There is no evidence of hydroureteronephrosis, renal or ureteral stone, bilaterally. No CT evidence of an acute process in the abdomen and pelvis. Moderate degenerative disc disease at L4-L5 and L5-S1 level with minimal compression of the right L5 superior endplate, likely chronic. Renal US: Clinical information: acute kidney injury No hydronephrosis is identified. The kidneys appear unremarkable in position, cortical thickness, echogenicity and size. The right kidney measures approximately 11.3 cm in length, the left kidney 10.7 cm. No obvious mass lesion or calculus is seen within the limitations of sonography. There is no perirenal fluid collection Impression: Negative exam. No sonographic abnormality is identified. No definite interval change is seen in comparison to a prior ultrasound exam of 02/26/2017 CXR: Single AP view of the chest has been submitted. Since 11/12/2018, again noted are well expanded lung chandra, normal mediastinum and sharp angles. An acute infiltrate or failure is not seen. Again noted is chronic scarring or atelectasis by the left heart border. This was present on the prior study of 11/12. The bones and soft tissues are intact. Correlation recommended. Impression : No acute pathology. Chronic changes by left heart border. No significant change since 11/12/2018. HOSPITAL COURSE: Date of Admission:01/17/19 Date of Discharge: 01/18/19 Minutes to complete discharge: 40 Discharge Summary Reason For Visit: ACUTE KIDNEY INJURY Current Active Problems GERARD (acute kidney injury) (Acute) Hospital Course: 53 yof with PMHx of HTN, hypothyroidism, asthma, obesity, nonischemic cardiomyopathy, chronic systolic HF (last Echo 11/2018 EF 40-45%), cath 08/2018 with non obstructive dz, dizziness/syncope in felt from vasovagal/over diuresis, planned for KASSANDRA-BSO on 01/26, admitted with bilateral Lower back pain "like heaviness" associated with heavy menstrual bleed and cr 2.5. Patient reported URI like symptoms last week with poor oral intake. She was seen outpatient for preo-op clearance when her cr was noted 1.7. She reported her lisinopril was changed to losartan given recent cough and her lasix was decreased from 80 mg to 20 mg just 2 days prior to admission. She was noted with hypotensives episodes on admission. Her GERARD was suspected from her poor oral intake, continuation of lasix/ARB, ongoing heavy menstrual blood loss with resultant hypotension/hypovolumia. She received IV hydration and 1 unit PRBC during her stay. Her GERARD resolved with discharge creatinine of 1.2. Her lasix/losartan were held. She had CT A/P and renal US as above neg for any concerns. She was seen by nephrology. Her volume status was closely monitored with no concerns. Her coreg has been decreased to 12.5 mg BID. She is advised to hold her losartan and resume lasix at lower dose 20 mg and coreg at 12.5 mg BID with close outpatient monitoring. Her back pain improved with warm packs/topical analgesics and likely from her fibroids and menstrual cramps. She will discharged in stable condition with PCP follow up tomorrow and advised close home monitoring of her weights and BP. Condition: Stable - Instructions Diet, Activity, Other Instructions: You were admitted with abnormal kidney function, found with ongoing menstrual bleeding and low BP. Your lasix and losartan were held. You received 1 unit blood with improved response. You had kidney ultrasound that was negative for concerns. You were seen bargeman. MEDICATIONS: Stop your losartan for now. Following medications are changed: Resume lasix at 20 mg daily starting tomorrow Your coreg has been decreased to 12.5 mg twice daily for now. (Prescription has been provided) (do not take your home 25 mg dose of coreg while taking this) Continue other medications as before. INSTRUCTIONS: It is very important that your kidney function, weights and BP are closely monitored after discharge from the hospital. You are discharged on lasix 20 mg daily and reduced dose of coreg 12.5 mg twice daily. However, based on your kidney function, weights and BP, the medications will need to be titrated and hence, advised close follow up with your primary doctor, watershed program manager and bargeman this week. Weigh yourself daily and notify doctor if weight gain > 3lbs in 2 days Home BP monitoring daily till next doctor visit. Notify your doctor if SBP ( upper reading) persistently > 140. If it is <100 or you notice any dizziness or concerns, you are advised to come to the ED. Your blood counts (CBC) will also need close monitoring with your doctor. FOLLOW UP: With PCP Dr. Urbina tomorrow as scheduled With watershed program manager in 1 week Advised follow up with bargeman in 1-2 weeks (Information is provided of the doctor who saw you in the hospital) Blood work BMP (Basic Metabolic panel) and CBC (Complete blood count) in 3 days with your doctor. Continued follow up with your Commissioner Of [employer]. If you notice any dizziness, decreased urination, trouble breathing, ongoing bleeding that does not stop or any new concerns, please call 911 or come to the ED. Referrals: Tori Peters MD [Staff Physician] - 1 Week Delia Urbina MD [Primary Care Provider] - 01/19/19 Cheng Dominique MD [Staff Physician] - 1 Week Disposition: HOME - Home Medications Comprehensive Discharge Medication List: Ambulatory Orders Aspirin [Aspirin EC] 81 mg PO DAILY 11/12/18 Ergocalciferol (Vitamin D2) [Vitamin D2] 50,000 unit PO WEEKLY 11/12/18 Ferrous Sulfate 325 mg PO BID 11/12/18 Levothyroxine [Synthroid -] 25 mcg PO DAILY 11/12/18 Pantoprazole Sodium [Protonix -] 20 mg PO DAILY 11/12/18 Furosemide [Lasix -] 20 mg PO DAILY #30 tablet 11/14/18 Albuterol Sulfate Inhaler - [Ventolin HFA Inhaler -] 1 - 2 inh PO QID 01/16/19 Atorvastatin Ca [Lipitor] 10 mg PO HS 01/16/19 Carvedilol [Coreg -] 12.5 mg PO BID #30 tablet 01/18/19 Methyl Salicylate/Menthol Oint [Analgesic [place] -] 1 applic TP BID PRN #1 applic 01/18/19 This patient is new to me today: No Emergency Visit: Yes ED Registration Date: 01/17/19 Care time: The patient presented to the Emergency Department on the above date and was hospitalized for further evaluation of their emergent condition. Critical Care patient: No - Discharge Referral Referred to [facility] Med P.C.: No
[2019-01-18 14:29] VITALS: BP 120/75; PULSE 69; TEMP 98.2
--- NOTE | 2019-01-19 10:38 | EKG ---
Test Reason : Blood Pressure : / mmHG Vent. Rate : 072 BPM Atrial Rate : 072 BPM P-R Int : 154 ms QRS Dur : 088 ms QT Int : 412 ms P-R-T Axes : 032 026 034 degrees QTc Int : 451 ms NORMAL SINUS RHYTHM NORMAL ECG WHEN COMPARED WITH ECG OF 12-NOV-2018 11:59, NO SIGNIFICANT CHANGE WAS FOUND Confirmed by STEPHANIE COONEY MD ([id number]) on 01/19/2019 10:38:32 AM Referred By: Confirmed By:STEPHANIE COONEY MD
[2019-01-23] MEDS ORDERED: ERGOCALCIFEROL (VITAMIN D2) 50,000 UNIT CAPSULE (FP) PO SCH (10:00)
== END 2019-01-18 13:15 | disposition home or self-care (01) | DRG 469 ==
LOC: JER 18:59 → JERBED 01-17 00:08 → OBSVTOIN 01-17 01:59 → J7W 01-17 18:00
PROVIDERS: ADMIT Internal Medicine; ATTEND Hospitalist
PROC: 30233N1 Transfusion of Nonautologous Red Blood Cells into Peripheral Vein, Percutaneous Approach (ICD-10-PCS; principal; 2019-01-17)
DX: N17.9 Acute kidney failure, unspecified (principal); I11.0 Hypertensive heart disease with heart failure; I50.22 Chronic systolic (congestive) heart failure; I42.8 Other cardiomyopathies; D62 Acute posthemorrhagic anemia; I95.9 Hypotension, unspecified; E03.9 Hypothyroidism, unspecified; J45.909 Unspecified asthma, uncomplicated; E66.9 Obesity, unspecified; Z68.37 Body mass index [BMI] 37.0-37.9, adult; E78.5 Hyperlipidemia, unspecified; M51.86 Other intervertebral disc disorders, lumbar region; D64.9 Anemia, unspecified; F41.9 Anxiety disorder, unspecified; D25.9 Leiomyoma of uterus, unspecified
CPT/HCPCS: 36415; 36430; 36511; 71045-TC-FY; 74176-TC; 76775-TC; 80048; 80053; 81003; 82310; 82436; 82728; 83540; 83550; 83735; 83880; 83935; 83970; 84100; 84133; 84300; 84703; 85025; 85610; 86850; 86900; 86901; 86922; 87086; 93005; 93010; 94640; 99285-25; G0378; J0131; J7030; P9038; P9058

== ENCOUNTER 2019-01-26 06:07 | Inpatient (IN) | payer OTHER ==
[2019-01-23 15:13] VITALS: BMI 35.4
[2019-01-23 15:26] LABS: BASO % 0.4 % (0-2.0); EOS % 3.2 % (0-4.5); HEMATOCRIT 33.2 % (32.4-45.2); HEMOGLOBIN 11.2 GM/dL (10.7-15.3); LYMPH % 29.1 % (8-40); MCH 30.7 pg (25.7-33.7); MCHC 33.8 g/dl (32.0-36.0); MEAN CELL VOLUME 90.7 fl (80-96); MEAN PLT VOLUME 8.4 fl (7.5-11.1); MONO % 8.2 % (3.8-10.2); NEUT % 59.1 % (42.8-82.8); PLATELET COUNT 241 K/MM3 (134-434); RBC 3.66 M/mm3 (3.60-5.2); RDW 13.2 % (11.6-15.6); WHITE BLOOD COUNT 7.2 K/mm3 (4.0-10.0)
[2019-01-23 16:02] LABS: ALBUMIN 3.8 g/dl (3.4-5.0); ALK PHOS 76 U/L (45-117); ANION GAP 8 MMOL/L (8-16); BILIRUBIN,TOTAL 0.4 mg/dL (0.2-1); BLOOD UREA NITROGEN 24 mg/dL (7-18); CALCIUM 9.3 mg/dL (8.5-10.1); CHLORIDE 105 mmol/L (98-107); CO2 27 mmol/L (21-32); CREATININE 1.2 mg/dL (0.55-1.3); GLUCOSE,RANDOM 94 mg/dL (74-106); SGOT/AST 24 U/L (15-37); SGPT/ALT 44 U/L (13-61); SODIUM 140 mmol/L (136-145); TOT PROT 7.6 g/dl (6.4-8.2)
[~2019-01-26 06:07] MED LIST: BUPIVACAINE HCL/PF (5 MG/ML) 30 ML VIAL IJ ONE
[2019-01-26] MEDS ORDERED: IBUPROFEN 800 MG/8 ML IJ IVPB PRN (07:01)
[2019-01-26] MEDS ORDERED: PHENAZOPYRIDINE HCL 100 MG TABLET (FP) PO ONE (07:04)
[2019-01-26] MEDS ORDERED: PHENAZOPYRIDINE HCL 100 MG TABLET (FP) PO STA (07:05)
--- NOTE | 2019-01-26 07:08 | HP ---
History & Physical Update - History History: No Change - Physical Physical: No Change - Assessment Assessment: No Change - Plan Plan: No Change (No change in HP)
[2019-01-26] MEDS ORDERED: PROPOFOL 20 ML ONE (07:23)
[2019-01-26] MEDS ORDERED: fentaNYL CITRATE 250 MCG/5 ML VIAL ONE (07:23)
[2019-01-26] MEDS ORDERED: ROCURONIUM BROMIDE 50 MG/5 ML VIAL ONE ×2 (07:23→09:43)
[2019-01-26] MEDS ORDERED: LIDOCAINE HCL/PF 2% SDV 5ML VIAL ONE (07:25)
[2019-01-26] MEDS ORDERED: DEXAMETHASONE SOD PHOSPHATE 4 MG/1 ML VIAL ONE (07:25)
[2019-01-26] MEDS ORDERED: BUPIVACAINE HCL/PF 0.5% (5MG/ML) 10 ML VIAL ONE ×2 (07:48→07:54)
[2019-01-26] MEDS ORDERED: MIDAZOLAM HCL 2 MG/2 ML SINGLE DOSE VIAL ONE ×2 (07:55)
[2019-01-26] MEDS ORDERED: ceFAZolin SODIUM 1 GM VIAL IVPB ONE (09:05)
[2019-01-26] MEDS ORDERED: ALBUTEROL SO4 8 GM HFA INHALER IH ONE (09:18)
[2019-01-26] MEDS ORDERED: ceFAZolin SODIUM 1 GM VIAL ONE (09:32)
[2019-01-26] MEDS ORDERED: DESFLURANE GAS 240 ML BOTTLE IH ONE (10:25)
[2019-01-26] MEDS ORDERED: LACTATED RINGERS SOLUTION 1,000 ML IV SCH (10:45)
[2019-01-26] MEDS ORDERED: GLYCOPYRROLATE 0.2 MG/1 ML VIAL ONE (11:12)
[2019-01-26] MEDS ORDERED: NEOSTIGMINE METHYLSULFATE 0.5 MG/ML - 10 ML MDV ONE (11:12)
[2019-01-26] MEDS ORDERED: HYDROmorphone *PCA* 10MG/50ML DISP.SYRIN PCA SCH ×2 (11:15→14:07)
[2019-01-26] MEDS ORDERED: DOCUSATE SODIUM 100 MG CAPSULE (FP) PO PRN (11:44)
[2019-01-26] MEDS ORDERED: BISACODYL 5 MG TABLET.DR (FP) PO PRN (11:44)
[2019-01-26] MEDS ORDERED: FUROSEMIDE 20 MG TABLET (FP) PO SCH (11:45)
[2019-01-26] MEDS ORDERED: ERGOCALCIFEROL (VITAMIN D2) 50,000 UNIT CAPSULE (FP) PO SCH (11:45)
--- NOTE | 2019-01-26 11:54 | SURG ---
Surgery Biofuels Product Development Manager Note Biofuels Product Development Manager: Walter Pleitez PA-C Date of Service: 01/26/19 Diagnosis: Fibroid uterus, Lt ovarian cyst, pelvic pain Procedure: Robotic assisted hysterectomy, Left ovarian cystectomy, bilateral salpingectomy I was present for the entirety of the operative procedure. For further detail, please refer to operative report.
[2019-01-26 13:02] LABS: ANION GAP 7 MMOL/L (8-16); BLOOD UREA NITROGEN 23 mg/dL (7-18); CALCIUM 9.1 mg/dL (8.5-10.1); CHLORIDE 106 mmol/L (98-107); CO2 26 mmol/L (21-32); GLUCOSE,RANDOM 129 mg/dL (74-106); POTASSIUM 4.2 mmol/L (3.5-5.1); SODIUM 139 mmol/L (136-145)
--- NOTE | 2019-01-26 13:07 | OP ---
DATE OF OPERATION: 01/26/2019 PREOPERATIVE DIAGNOSIS: Leiomyomatous uterus, menorrhagia, and abdominal pain. OPERATION: Robotic-laparoscopic total hysterectomy, bilateral salpingectomy, and left ovarian cystectomy. SURGEON: Shona Demarco MD BROADCAST ENGINEER: ALAN Watson. ANESTHESIA: General. FINDINGS: Uterus approximately 10 to 12 cm in size. Cyst of Morgnani noted on the periovarian cyst noted on the right tube and left ovary revealed a 3-cm ovarian cyst. PROCEDURE: The patient was taken to the operating room and placed in the dorsal lithotomy position and prepped and draped in the usual sterile fashion. A time-out was performed in accordance with hospital regulations. A speculum was placed in the vagina. The anterior lip of the cervix was grasped with a single-tooth tenaculum. The cervix was then dilated to accommodate the uterine manipulator. The uterine manipulator was then placed and the Phelan catheter was inserted. Attention was then drawn to the umbilicus where an 8-mm umbilical incision was made. The Veress needle was inserted into the cavity. Approximately 3 to 4 mL of CO2 was insufflated into the cavity. The Veress needle was then removed and an 8-mm trocar was then inserted. Laparoscope and camera were attached and visualization revealed omental adhesions as well as a 3-cm left ovarian cyst and the 2 cm cyst of Morgnani or periovarian cyst was noted on the right side. The tubes were noted to be normal. The right ovary was noted to be normal and the uterus was approximately 10 to 12 cm in size. Two trocars were placed on the left side parallel to the umbilical incision and 1 incision. Then an 8-mm incision was made 10 cm apart and then the upper abdominal incision 5 mm incision was made for the AirSeal cannula. Trocars were inserted under direct visualization. Attention was then drawn to the right side where 2 parallel incisions were made 10 mm apart from the umbilicus. The scalpel was then used to make an 8-mm incision and trocars were inserted under direct visualization. Placement of trocars was then secured. The da Julia robot was then side docked to the patients bedside. Trocars were then inserted and instruments were then placed under direct visualization. On the right side tenaculum and EndoShears were placed. On the left side a vessel sealer was placed along with the AirSeal cannula was placed. The AirSeal was then activated. After instruments had been placed control of the console was then done. The tenaculum was then used to elevate the uterus to the right side. Tubes were noticed to be normal. The uterine ovarian ligament was then identified, clamped, and cut along with the tubes on the left. The round ligament was identified, clamped, and cut. The uterine artery was identified and clamped and cut along the left side. Vesicular uterine reflection was then entered and the bladder was bluntly dissected out of the operative field. The cardinal ligaments were identified, clamped and cut down to the level of the cervix. The vagina was then entered using EndoShears after the bladder had been securely removed from the attachment to the uterus and the cervix. Tenting procedure was completed on this side. The uterine ovarian ligaments were identified, clamped, and cut. The tubes were identified, clamped, and cut. The round ligaments were identified, coagulated, clamped, and cut. Vesicular uterine reflection was then placed out of the operative field and the bladder was removed from the right side. After the bladder had been removed, the ureter on the right side was seen to be active in peristalsis. No ureter was seen prior to the surgery on the left side. The patient was noted to have a high creatinine of 1.2, we will evaluate postoperatively. The EndoShears were then use to cut the surface away from the vagina. The uterus and cervix was then removed from the vagina. The 2-0 V-Loc suture was passed into the abdomen. The tubes were bilaterally grasped coagulated, clamped and cut and was removed. Both the right and left tubes were removed. The da Julia robot was then used to close the vaginal wall using 2-0 V-Loc suture in a continuous fashion. Hemostasis was achieved. Attention was then drawn to the left ovary where a left ovarian cyst and EndoShears was then used to open the left ovary and the cyst wall was then removed and submitted to pathology. Hemostasis was achieved. Hemostasis was noted and everything was noted to be hemostatic. The 2-0 V-Loc suture needle was removed and all instruments were then removed. CO2 was removed from the abdomen. Sutures were then closed using 4-0 Biosyn stitch in a subcuticular fashion. The wound was cleaned and dressed. The patient tolerated the procedure well. ESTIMATED BLOOD LOSS: 250 mL. Terri [id number]
[2019-01-26] MEDS ORDERED: ONDANSETRON 4 MG/2 ML VIAL ONE (13:39)
[2019-01-26] MEDS: ONDANSETRON 4 MG/2 ML VIAL IVPUSH PRN ×2 (13:40→20:24)
--- NOTE | 2019-01-26 17:23 | OP ---
Operative Note - Note: Operative Date: 01/26/19 Pre-Operative Diagnosis: Fibroid uterus, ovarian cyst, pelvic pain Operation: Robotic assisted hysterectomy, bilateral salpingectomy, ovarian cystectomy Post-Operative Diagnosis: Same as Pre-op Surgeon: Shona Demarco Auto Painter Helper: Walter Pleitez Anesthesiologist/FUR STYLIST: Saima Fry Anesthesia: General Estimated Blood Loss (mls): 250 Operative Report Dictated: Yes
[2019-01-26] MEDS: FERROUS SO4 325 MG TABLET (FP) PO SCH (17:30)
[2019-01-26] MEDS ORDERED: CEFAZOLIN 1 GM/D5W 1 GM/50 ML BAG IVPB SCH (18:00)
[2019-01-26] MEDS ORDERED: ACETAMINOPHEN 325 MG TABLET (FP) PO PRN (18:23)
[2019-01-26 19:33] LABS: HEMATOCRIT 29.1 % (32.4-45.2); HEMOGLOBIN 9.8 GM/dL (10.7-15.3); MCH 30.7 pg (25.7-33.7); MCHC 33.8 g/dl (32.0-36.0); MEAN CELL VOLUME 90.8 fl (80-96); MEAN PLT VOLUME 8.7 fl (7.5-11.1); PLATELET COUNT 223 K/MM3 (134-434); RDW 13.1 % (11.6-15.6); WHITE BLOOD COUNT 9.8 K/mm3 (4.0-10.0)
[2019-01-26 19:55] LABS: BLOOD UREA NITROGEN 21 mg/dL (7-18); CREATININE 0.9 mg/dL (0.55-1.3); GLUCOSE,RANDOM 148 mg/dL (74-106); POTASSIUM 4.3 mmol/L (3.5-5.1); SODIUM 140 mmol/L (136-145)
[2019-01-26 19:56] LABS: ANION GAP 11 MMOL/L (8-16); CALCIUM 9.4 mg/dL (8.5-10.1); CHLORIDE 107 mmol/L (98-107); CO2 23 mmol/L (21-32)
[2019-01-26] MEDS: CEFAZOLIN 2 GM/D5W 2 GM/50 ML ML IVPB SCH ×2 (20:07→20:10)
[2019-01-26] MEDS: ATORVASTATIN CA 10 MG TABLET (FP) PO SCH (22:27)
[2019-01-26] MEDS: CARVEDILOL 12.5 MG TABLET (FP) PO SCH (22:27)
[2019-01-26] MEDS: SIMETHICONE 80 MG TAB.CHEW (FP) PO PRN (22:27)
[2019-01-27] MEDS: SIMETHICONE 80 MG TAB.CHEW (FP) PO PRN ×3 (03:14→21:32)
[2019-01-27] MEDS ORDERED: ALBUTEROL SO4 0.083% IH SOL 2.5 MG/3 ML VIAL.NEB. NEB ONE (03:24)
[2019-01-27] MEDS: ALBUTEROL SO4 0.083% IH SOL 2.5 MG/3 ML VIAL.NEB. NEB PRN ×3 (03:42→23:42)
[2019-01-27] MEDS ORDERED: PCA PUMP KEY 1 EACH EACH ONE ×2 (04:10→09:48)
[2019-01-27] MEDS: LEVOTHYROXINE NA 25 MCG TABLET (FP) PO SCH (06:38)
[2019-01-27] MEDS: diphenhydrAMINE HCL 25 MG CAPSULE (FP) PO PRN ×3 (07:22→21:42)
[2019-01-27] MEDS: FERROUS SO4 325 MG TABLET (FP) PO SCH (08:13)
--- NOTE | 2019-01-27 08:18 | PN ---
Progress Note (short form) - Note Progress Note: POD#1 Robotic assisted total hysterectomy, bilateral salpingectomy, ovarian cystectomy. Patient seen and examined at bedside c/o pain/ gas pain overnight despite [employer]LE[employer] ENTREPR[employer]UR MEDIA PERSONALITY. She tolerated her clear diet and has not been OOB to ambulate yet. She denies any CP, SOB, N/V fever or chills. Vital Signs Temp 98.1 F 01/27/19 02:00 Pulse 56 L 01/27/19 04:51 Resp 17 01/27/19 04:51 BP 101/60 01/27/19 04:51 Pulse Ox 99 01/26/19 21:00 Intake & Output 01/26/19 01/26/19 01/27/19 11:59 23:59 11:59 Intake Total 1400 1365 650 Output Total 319 006 6160 Balance 930 465 -450 Weight 201 lb 8 oz Intake: IV 1400 925 650 Lactated Ringers Solution 500 650 1,000 ml @ 125 mls/hr IV ASDIR FRANNIE Rx#: [id number] IVPB 100 Oral 340 Output: Urine 840 568 5196 Kaiser 600 1100 Estimated Blood Loss 250 Other: Voiding Method Indwelling Catheter Weight Measurement Method Standing Scale CBC, BMP 01/26/19 18:45 01/26/19 18:45 PE: A&Ox3, NAD unlabored resp on RA ABD: Obese, distended and diffusely ttp throughout. dressings c/d/i with surrounding tissue intact and no evidence of tracking or d/c. LE compartments soft, supple and non-tender with +2 PD pulses. Problem List - Problems (1) History of robot-assisted laparoscopic hysterectomy Assessment/Plan: POD#1 patient doing well. 1) d/c kaiser this morning 2) OOB with PT, encourage ambulation 3) advance diet as tolerated 4) Simethicone for gas 5) encourage IS 6) will look to wean [employer]RE[employer]IA PERSONALITY this morning 7) d/c planning for home. Evaluation and plan discussed with Dr Demarco. Code(s): Z90.710 - ACQUIRED ABSENCE OF BOTH CERVIX AND UTERUS
[2019-01-27 08:41] LABS: HEMATOCRIT 27.6 % (32.4-45.2); HEMOGLOBIN 9.4 GM/dL (10.7-15.3); MCHC 34.2 g/dl (32.0-36.0); MEAN CELL VOLUME 90.5 fl (80-96); MEAN PLT VOLUME 8.4 fl (7.5-11.1); PLATELET COUNT 215 K/MM3 (134-434); RBC 3.05 M/mm3 (3.60-5.2); RDW 13.1 % (11.6-15.6); WHITE BLOOD COUNT 10.8 K/mm3 (4.0-10.0)
[2019-01-27 09:00] LABS: BLOOD UREA NITROGEN 13 mg/dL (7-18); CHLORIDE 104 mmol/L (98-107); CO2 25 mmol/L (21-32); CREATININE 0.8 mg/dL (0.55-1.3); GLUCOSE,RANDOM 106 mg/dL (74-106); POTASSIUM 3.9 mmol/L (3.5-5.1); SODIUM 136 mmol/L (136-145)
[2019-01-27 09:01] LABS: ANION GAP 7 MMOL/L (8-16); CALCIUM 9.5 mg/dL (8.5-10.1)
[2019-01-27] MEDS: LOSARTAN POTASSIUM 25 MG TABLET PO SCH (09:13)
[2019-01-27] MEDS: PANTOPRAZOLE 20 MG TABLET (FP) PO SCH (09:13)
[2019-01-27] MEDS: ASPIRIN COATED 81 MG TABLET.EC PO SCH (09:13)
[2019-01-27] MEDS: ENOXAPARIN NA (PORCINE) 40 MG/0.4 ML DISP.SYRIN SQ SCH (09:14)
[2019-01-27] MEDS: CARVEDILOL 12.5 MG TABLET (FP) PO SCH ×2 (09:14→22:27)
[2019-01-27] MEDS ORDERED: ACETAMINOPHEN 1000 MG/100 ML VIAL (NON FORMULARY) IVPB ONE (09:17)
--- NOTE | 2019-01-27 11:02 | PN ---
Post Progress Note - Subjective Subjective: Status post , doing well. Post Day: 1 Vital Signs: Vital Signs Temperature 97.5 F L 01/27/19 08:44 Pulse Rate 49 L 01/27/19 08:44 Respiratory Rate 16 01/27/19 08:44 Blood Pressure 116/71 01/27/19 08:44 O2 Sat by Pulse Oximetry (%) 97 01/27/19 10:14 - Labs Labs: CBC WBC 10.8 K/mm3 (4.0-10.0) H 01/27/19 08:15 RBC 3.05 M/mm3 (3.60-5.2) L 01/27/19 08:15 Hgb 9.4 GM/dL (10.7-15.3) L 01/27/19 08:15 Hct 27.6 % (32.4-45.2) L 01/27/19 08:15 MCV 90.5 fl (80-96) 01/27/19 08:15 MCH 31.0 pg (25.7-33.7) 01/27/19 08:15 MCHC 34.2 g/dl (32.0-36.0) 01/27/19 08:15 RDW 13.1 % (11.6-15.6) 01/27/19 08:15 Plt Count 215 K/MM3 (134-434) 01/27/19 08:15 MPV 8.4 fl (7.5-11.1) 01/27/19 08:15 Absolute Neuts (auto) 4.3 K/mm3 (1.5-8.0) 01/23/19 14:50 Neutrophils % 59.1 % (42.8-82.8) D 01/23/19 14:50 Lymphocytes % 29.1 % (8-40) D 01/23/19 14:50 Monocytes % 8.2 % (3.8-10.2) 01/23/19 14:50 Eosinophils % 3.2 % (0-4.5) 01/23/19 14:50 Basophils % 0.4 % (0-2.0) 01/23/19 14:50 Nucleated RBC % 0 % (0-0) 01/23/19 14:50
[2019-01-27] MEDS: oxyCODONE HCL 5 MG TABLET PO PRN ×3 (12:58→21:33)
[2019-01-27] MEDS: DOCUSATE SODIUM 100 MG CAPSULE (FP) PO SCH ×2 (14:40→21:33)
--- NOTE | 2019-01-27 16:03 | PATH ---
Surgical Pathology Report Patient Name: LAMBERT ALVAREZ [facility]. Rec. #: [id number] /Age/Gender: 1965 (Age: 53) / F Account: [id number] Location: [facility] OBS/JUNIOR BUSINESS ANALYST Taken: 01/26/2019 Received: 01/26/2019 Reported: 01/27/2019 Physicians: Shona Demarco M.D. Specimen(s) Received A: UTERUS AND CERVIX B: LEFT OVARIAN CYST WALL C: RIGHT FALLOPIAN TUBE D: LEFT FALLOPIAN TUBE Clinical History Pelvic pain, ovarian cyst, fibroid uterus Final Diagnosis A. UTERUS AND CERVIX, HYSTERECTOMY: UTERUS AND CERVIX, 188 GRAMS, WITH ADENOMYOSIS, INACTIVE ENDOMETRIUM, AND CERVIX WITH ACUTE AND CHRONIC INFLAMMATION. B. LEFT OVARIAN CYST WALL, EXCISION: HEMORRHAGIC LUTEAL CYST WITH MARKED EOSINOPHILIC INFILTRATE (SEE COMMENT). C. RIGHT FALLOPIAN TUBE, SALPINGECTOMY: FULL LUMINAL PORTION OF FALLOPIAN TUBE INCLUDING FIMBRIATED END. BENIGN PARATUBAL CYST PRESENT. D. LEFT FALLOPIAN TUBE, SALPINGECTOMY: FULL LUMINAL PORTION OF FALLOPIAN TUBE INCLUDING FIMBRIATED END. Comment: The presence of an eosinophilic infiltrate in ovarian tissue is nonspecific, and may be due to medication, parasites, allergy, or autoimmune etiologies. Recommend correlation with clinical findings and followup as clinically indicated. Electronically Signed Del Mccormick M.D. Gross Description A. Received in formalin labeled "uterus and cervix," is a 188 g uterus with an attached cervix and no attached adnexa. The specimen measures 10 cm from superior to inferior, 7 cm from left to right and 5.2 cm from anterior to posterior. The serosa is pink-elias and smooth. The attached cervix measures 3.5 cm in length and averages 3.2 cm in diameter. The ectocervix is pink-elias, smooth and glistening. The endocervix is unremarkable. The endometrial cavity measures 5 cm in length and 1.7 cm from cornu to cornu. The endometrium is elias-red and averages 0.1 cm in thickness. The myometrium is elias-pink, firm and trabeculated, consistent with adenomyosis. The myometrium measures up to 3.0 cm in thickness. No intramural nodules are identified, despite the indication on the requisition. Sole Stitcher Hand sections are submitted in 6 cassettes as follows: 1-anterior cervix; 2-posterior cervix; 5-8-tejvankz endomyometrium; 1-6-almnthfuj endomyometrium. B. Received in formalin labeled "left ovarian cyst wall," is a 2.4 x 1.7 x 0.2 cm aggregate of elias-brown soft tissue fragments, consistent with a disrupted cyst. The larger portions are sectioned and the specimen is entirely submitted in 2 cassettes. C. Received in formalin labeled "right fallopian tube," is a 2.5 cm in length fimbriated fallopian tube. The outer surface is elias-pink with a 1.4 cm greatest dimension paratubal cyst attached to the fimbria. Sectioning reveals an unremarkable fallopian tube lumen. Sole Stitcher Hand sections are submitted in 2 cassettes as follows: 1-fimbria and paratubal cyst; 2-cross sections of fallopian tube. D. Received in formalin labeled "left fallopian tube," is a 3 cm in length fimbriated fallopian tube. The outer surface is elias chandra and smooth. Sectioning reveals an unremarkable lumen. Sole Stitcher Hand sections are submitted in 2 cassettes as follows: 1-fimbria; 2-cross sections of fallopian tube. 01/26/2019 [facility]26[facility]2019
[2019-01-27] MEDS: ACETAMINOPHEN 325 MG TABLET (FP) PO SCH (17:28)
[2019-01-27] MEDS: ATORVASTATIN CA 10 MG TABLET (FP) PO SCH (21:31)
[2019-01-27] MEDS ORDERED: BISACODYL 10 MG SUPP.RECT PR ONE (22:08)
--- NOTE | 2019-01-27 22:21 | PN ---
Progress Note (short form) - Note Progress Note: Pt with c/o of pain Pt has gas pain WIll treat with DUlcolax supp and ambulation
[2019-01-28] MEDS: ACETAMINOPHEN 325 MG TABLET (FP) PO SCH ×2 (00:08→06:10)
[2019-01-28] MEDS: SIMETHICONE 80 MG TAB.CHEW (FP) PO PRN (06:09)
[2019-01-28] MEDS: DOCUSATE SODIUM 100 MG CAPSULE (FP) PO SCH (06:10)
[2019-01-28] MEDS: LEVOTHYROXINE NA 25 MCG TABLET (FP) PO SCH (06:10)
[2019-01-28] MEDS: oxyCODONE HCL 5 MG TABLET PO PRN (06:15)
--- NOTE | 2019-01-28 06:57 | PN ---
Progress Note, Physician Chief Complaint: s/p robotic assisted hysterectomy under general anesthesia History of Present Illness: post op day one with b/l TAP blocks and OBSTETRICIAN GYNECOLOGIST for post op pain control - Current Medication List Current Medications: Active Medications Acetaminophen (Tylenol -) 650 mg PO Q6HPO [facility] Stop: 01/28/19 12:01 Last Admin: 01/28/19 06:10 Dose: 650 mg Albuterol Sulfate (Ventolin 0.083% Nebulizer Soln -) 1 amp NEB Q4H PRN PRN Reason: SHORT OF BREATH/WHEEZING Last Admin: 01/27/19 23:42 Dose: 1 amp Aspirin (Ecotrin -) 81 mg PO DAILY [facility] Last Admin: 01/27/19 09:13 Dose: 81 mg Atorvastatin Calcium (Lipitor -) 10 mg PO HS [facility] Last Admin: 01/27/19 21:31 Dose: 10 mg Bisacodyl (Dulcolax -) 10 mg PO ONCE PRN PRN Reason: CONSTIPATION Last Admin: 01/28/19 06:16 Dose: 10 mg Carvedilol (Coreg -) 12.5 mg PO BID [facility] Last Admin: 01/27/19 22:27 Dose: Not Given Diphenhydramine HCl (Benadryl -) 25 mg PO Q6H PRN PRN Reason: ITCHING Last Admin: 01/27/19 21:42 Dose: 25 mg Docusate Sodium (Colace -) 100 mg PO TID [facility] Last Admin: 01/28/19 06:10 Dose: 100 mg Enoxaparin Sodium (Lovenox -) 40 mg SQ DAILY [facility] Last Admin: 01/27/19 09:14 Dose: 40 mg Ergocalciferol (Drisdol -) 50,000 unit PO Mo [facility] Ferrous Sulfate (Feosol -) 325 mg PO BIDWM [facility] Last Admin: 01/27/19 08:13 Dose: 325 mg Lactated Ringer's (Lactated Ringers Solution) 1,000 mls @ 125 mls/hr IV ASDIR [facility] Last Admin: 01/26/19 20:08 Dose: 125 mls/hr Levothyroxine Sodium (Synthroid -) 25 mcg PO 0700 [facility] Last Admin: 01/28/19 06:10 Dose: 25 mcg Losartan Potassium (Cozaar -) 25 mg PO DAILY [facility] Last Admin: 01/27/19 09:13 Dose: 25 mg Oxycodone HCl (Roxicodone -) 5 mg PO Q4H PRN PRN Reason: PAIN LEVEL 1-5 Last Admin: 01/28/19 06:15 Dose: 5 mg Oxycodone HCl (Roxicodone -) 10 mg PO Q4H PRN PRN Reason: PAIN LEVEL 6-10 Last Admin: 01/27/19 21:33 Dose: 10 mg Pantoprazole Sodium (Protonix -) 20 mg PO DAILY [facility] Last Admin: 01/27/19 09:13 Dose: 20 mg Simethicone (Mylicon -) 80 mg PO Q4H PRN PRN Reason: GAS Last Admin: 01/28/19 06:09 Dose: 80 mg - Objective Vital Signs: Vital Signs Temperature 98.2 F 01/27/19 21:50 Pulse Rate 56 L 01/27/19 21:50 Respiratory Rate 18 01/27/19 21:50 Blood Pressure 99/60 01/27/19 21:50 O2 Sat by Pulse Oximetry (%) 98 01/27/19 21:51 Constitutional: Yes: Well Nourished Cardiovascular: Yes: WNL Respiratory: Yes: WNL Gastrointestinal: Yes: Distention Labs: CBC, BMP 01/27/19 08:15 01/27/19 08:15 Assessment/Plan OBSTETRICIAN GYNECOLOGIST stopped today, patient tolerating PO, walking, pain controlled with oral analgesics. No adverse anesthetic complications. Dept of anesthesiology will sign off care at this time.
--- NOTE | 2019-01-28 07:52 | DS ---
Physical Exam: SUBJECTIVE: Patient seen and examined. Ambulating in her room unassisted. States she feels much better compared to yesterday. Had a large BM. ABD less distended. Voiding spontaneously. Tolerating PO diet. Denies n/v/f/c, CP, palpitations, SOB or NAVAS. OBJECTIVE: Vital Signs Temperature 98.2 F 01/27/19 21:50 Pulse Rate 56 L 01/27/19 21:50 Respiratory Rate 18 01/27/19 21:50 Blood Pressure 99/60 01/27/19 21:50 O2 Sat by Pulse Oximetry (%) 98 01/27/19 21:51 PHYSICAL EXAM GENERAL: Awake, alert, and fully oriented, in no acute distress. HEAD: NC. AT. NECK: Trachea midline, full range of motion, supple. LUNGS: CTA bilat HEART: RRR ABD: Soft, all surgical ports c/d/i. No hematoma. +bs in all quadrants LE: 2+ pulses, warm, well-perfused, no edema. PSYCH: Normal mood, normal affect. LABS CBC,CMP WBC 10.8 K/mm3 (4.0-10.0) H 01/27/19 08:15 RBC 3.05 M/mm3 (3.60-5.2) L 01/27/19 08:15 Hgb 9.4 GM/dL (10.7-15.3) L 01/27/19 08:15 Hct 27.6 % (32.4-45.2) L 01/27/19 08:15 MCV 90.5 fl (80-96) 01/27/19 08:15 MCH 31.0 pg (25.7-33.7) 01/27/19 08:15 MCHC 34.2 g/dl (32.0-36.0) 01/27/19 08:15 RDW 13.1 % (11.6-15.6) 01/27/19 08:15 Plt Count 215 K/MM3 (134-434) 01/27/19 08:15 MPV 8.4 fl (7.5-11.1) 01/27/19 08:15 Absolute Neuts (auto) 4.3 K/mm3 (1.5-8.0) 01/23/19 14:50 Neutrophils % 59.1 % (42.8-82.8) D 01/23/19 14:50 Lymphocytes % 29.1 % (8-40) D 01/23/19 14:50 Monocytes % 8.2 % (3.8-10.2) 01/23/19 14:50 Eosinophils % 3.2 % (0-4.5) 01/23/19 14:50 Basophils % 0.4 % (0-2.0) 01/23/19 14:50 Nucleated RBC % 0 % (0-0) 01/23/19 14:50 Sodium 136 mmol/L (136-145) 01/27/19 08:15 Potassium 3.9 mmol/L (3.5-5.1) 01/27/19 08:15 Chloride 104 mmol/L (98-107) 01/27/19 08:15 Carbon Dioxide 25 mmol/L (21-32) 01/27/19 08:15 Anion Gap 7 MMOL/L (8-16) L 01/27/19 08:15 BUN 13 mg/dL (7-18) 01/27/19 08:15 Creatinine 0.8 mg/dL (0.55-1.3) 01/27/19 08:15 Creat Clearance w eGFR 75.62 (>60) 01/27/19 08:15 Random Glucose 106 mg/dL (74-106) 01/27/19 08:15 Calcium 9.5 mg/dL (8.5-10.1) 01/27/19 08:15 Total Bilirubin 0.4 mg/dL (0.2-1) 01/23/19 14:50 AST 24 U/L (15-37) 01/23/19 14:50 ALT 44 U/L (13-61) 01/23/19 14:50 Alkaline Phosphatase 76 U/L (45-117) 01/23/19 14:50 Total Protein 7.6 g/dl (6.4-8.2) 01/23/19 14:50 Albumin 3.8 g/dl (3.4-5.0) 01/23/19 14:50 Beta HCG, Quant 2.2 mIU/ml 01/23/19 14:50 HOSPITAL COURSE: Date of Admission:01/27/19 Date of Discharge: 01/28/19 The patient was admitted to the [facility] after an elective Robotic assisted hysterectomy, bilateral salpingectomy, ovarian cystectomy. POD #0 Narcotic and non-narcotic pain management control was achieved with an oral and IV approach. POD #1, patient c/o significant about of abd pain/bloat/gas feeling and didn't feel comfortable going home. Patient was started on Dulcolax and pain meds continued. Bloated feeling most likely attributed to the CO2 used to insufflate the abd during the surgical procedure. Reassured patient that this will be absorbed by the body. POD #2, patient feels MUCH better s/p bowel movement and abd less distended. She tolerates a regular diet. Ambulating unassisted. Diana-operative IV ABX were administered. DVT prophylaxis was achieved with SCDs and early ambulation. Narcotic script checked with [place] [employer] PROGRAM MANAGER prior to escribe. The discharge instructions and an oral pain management plan were reviewed with the patient. All questions answered. Above plan discussed with Dr. Demarco and agreed. Minutes to complete discharge: 35 Visit type - Case Type Case Type: Scheduled - New patient This patient is new to me today: Yes Date on this admission: 01/28/19
[2019-01-28] MEDS: ALBUTEROL SO4 0.083% IH SOL 2.5 MG/3 ML VIAL.NEB. NEB PRN (08:33)
[2019-01-28] MEDS: CARVEDILOL 12.5 MG TABLET (FP) PO SCH (09:30)
[2019-01-28] MEDS: LOSARTAN POTASSIUM 25 MG TABLET PO SCH (09:30)
[2019-01-28] MEDS: ASPIRIN COATED 81 MG TABLET.EC PO SCH (09:32)
[2019-01-28] MEDS: FERROUS SO4 325 MG TABLET (FP) PO SCH (09:32)
[2019-01-28] MEDS: PANTOPRAZOLE 20 MG TABLET (FP) PO SCH (09:32)
[2019-01-28] MEDS: ENOXAPARIN NA (PORCINE) 40 MG/0.4 ML DISP.SYRIN SQ SCH (09:32)
[2019-01-28 10:38] VITALS: BP 99/67; PULSE 73; TEMP 98.4
== END 2019-01-28 11:59 | disposition home or self-care (01) | DRG 519 ==
LOC: JASUSAT 06:07 → EDSTATUS 08:00 → J3W 13:52 → JASUSAT 13:52 → J3W 01-27 16:26
PROVIDERS: ADMIT Obstetrics & Gynecology; ATTEND Obstetrics & Gynecology
PROC: 8E0W4CZ Robotic Assisted Procedure of Trunk Region, Percutaneous Endoscopic Approach (ICD-10-PCS; 2019-01-26)
PROC: 0UT9FZZ Resection of Uterus, Via Natural or Artificial Opening With Percutaneous Endoscopic Assistance (ICD-10-PCS; principal; 2019-01-26 08:00)
PROC: 0UT7FZZ Resection of Bilateral Fallopian Tubes, Via Natural or Artificial Opening With Percutaneous Endoscopic Assistance (ICD-10-PCS; 2019-01-26 08:00)
PROC: 0UB14ZZ Excision of Left Ovary, Percutaneous Endoscopic Approach (ICD-10-PCS; 2019-01-26 08:00)
DX: D25.9 Leiomyoma of uterus, unspecified (principal); N83.202 Unspecified ovarian cyst, left side; N92.0 Excessive and frequent menstruation with regular cycle
CPT/HCPCS: 36415; 80048; 80053; 84702; 85025; 85027; 86850; 86900; 86901; 88302-TC; 88305-TC; 88307-TC; 94640; 94760; J0131

== ENCOUNTER 2019-01-31 16:20 | Observation (INO) | payer OTHER ==
[2019-01-31 16:25] VITALS: BMI 37.5
--- NOTE | 2019-01-31 16:42 | PDOC ---
History of Present Illness - General Chief Complaint: Blood Pressure Problem Stated Complaint: Y Time Seen by Provider: 01/31/19 16:38 - History of Present Illness Initial Comments: 01/31/19 16:39 53 yo F with h/o HTN, Hypothyroidism, CHF, obesity who p/w SOB. Patient reports worsening Oseguera, orthopena, SOB beginning 01/27/19. Recent [facility] (01/26-01/28/19) [employer] admission s/p elective Robotic assisted hysterectomy, bilateral salpingectomy, ovarian cystectomy. States that she has not been taking her home dose Lasix since Saturday (01/25/19) because she ran out of medication. Also endorses BL LE swellling x 4 days. Endorses suprapubic pain with urination, and diffuse abdominal distension and pain following her [employer] procedure (01/26/19). Had nml BM yesterday (01/30/19). Endorses lightheadedness yesterday evening. Patient denies GONZALES, vision change, palpitations, cough, wheezing, orthopena, PND , N/V, F,C, CP, hematuria, BPR, abdominal pain, diarrhea, constipation, weakness, sensory changes. PMHx: as noted above ROS: as noted SHx: Denies Etoh, IVDA Allergies: NKDA Past History - Past Medical History Allergies/Adverse Reactions: Allergies Allergy/AdvReac Type Severity Reaction Status Date / Time No Known Allergies Allergy Verified 01/26/19 06:41 Home Medications: Ambulatory Orders Aspirin [Aspirin EC] 81 mg PO DAILY 11/12/18 Ergocalciferol (Vitamin D2) [Vitamin D2] 50,000 unit PO WEEKLY 11/12/18 Ferrous Sulfate 325 mg PO BID 11/12/18 Levothyroxine [Synthroid -] 25 mcg PO DAILY 11/12/18 Pantoprazole Sodium [Protonix -] 20 mg PO DAILY 11/12/18 Albuterol Sulfate Inhaler - [Ventolin HFA Inhaler -] 1 - 2 inh PO PRN PRN Atorvastatin Ca [Lipitor] 10 mg PO DAILY 01/16/19 Carvedilol [Coreg -] 12.5 mg PO BID #30 tablet 01/18/19 Furosemide [Lasix -] 20 mg PO ASDIR 01/23/19 Losartan Potassium 25 mg PO DAILY 01/23/19 oxyCODONE HCL [Roxicodone -] 5 mg PO Q4H PRN #12 tablet MDD 6 01/28/19 Anemia: Yes (iron deficiency) Asthma: Yes Cancer: No Cardiac Disorders: No CVA: No COPD: No CHF: Yes Dementia: No Diabetes: No GI Disorders: No Disorders: No HTN: Yes Hypercholesterolemia: Yes Liver Disease: No Seizures: No Thyroid Disease: Yes (hypo) - Surgical History Abdominal Surgery: No Appendectomy: No Cardiac Surgery: No Cholecystectomy: No Lung Surgery: No Neurologic Surgery: No Orthopedic Surgery: No - Immunization History Immunization Up to Date: Yes - Suicide/Smoking/Psychosocial Hx Smoking Status: No Smoking History: Unknown if ever smoked Have you smoked in the past 12 months: No Number of Cigarettes Smoked Daily: 2 If you are a former smoker, when did you quit?: 2000 Hx Alcohol Use: No Drug/Substance Use Hx: No Substance Use Type: None Hx Substance Use Treatment: No Review of Systems - Review of Systems Comments:: 01/31/19 16:41 GENERAL/CONSTITUTIONAL: No fever or chills. No weakness. HEAD, EYES, EARS, NOSE AND THROAT: No change in vision. No ear pain or discharge. No sore throat. CARDIOVASCULAR: + SOB. No chest pain. RESPIRATORY: No cough, wheezing, or hemoptysis. GASTROINTESTINAL: No nausea, vomiting, diarrhea or constipation. GENITOURINARY: + dysuria. No frequency, or change in urination. MUSCULOSKELETAL: No joint or muscle swelling or pain. No neck or back pain. SKIN: No rash NEUROLOGIC: No headache, vertigo, loss of consciousness, or change in strength/ sensation. ENDOCRINE: No increased thirst. No abnormal weight change HEMATOLOGIC/LYMPHATIC: No anemia, easy bleeding, or history of blood clots. ALLERGIC/IMMUNOLOGIC: No hives or skin allergy. *Physical Exam - Vital Signs Last Vital Signs Temp Pulse Resp BP Pulse Ox 98 F 72 20 171/94 H 98 01/31/19 16:23 01/31/19 16:23 01/31/19 16:23 01/31/19 16:23 01/31/19 16:23 - Physical Exam Comments: 01/31/19 16:41 GENERAL: Awake, alert, and fully oriented, in no acute distress HEAD: No signs of trauma, normocephalic, atraumatic EYES: PERRLA, EOMI, sclera anicteric, conjunctiva clear ENT: Hearing grossly normal, nares patent, oropharynx clear without exudates. Moist mucosa NECK: Normal ROM, supple, no lymphadenopathy, JVD, or masses LUNGS: No distress, speaks full sentences, clear to auscultation bilaterally HEART: Regular rate and rhythm, normal S1 and S2, no murmurs, rubs or gallops, peripheral pulses normal and equal bilaterally. ABDOMEN: Diffuse distension. + LLQ and RLQ laproscopic incision sites c/d/i, diffusely ttp. Soft, normoactive bowel sounds. No guarding, no rebound. No masses EXTREMITIES : Normal inspection, Normal range of motion, no edema. No clubbing or cyanosis. NEUROLOGICAL: Cranial nerves II through XII grossly intact. Normal speech, normal gait, no focal sensorimotor deficits SKIN: Warm, Dry, normal turgor, no rashes or lesions noted ED Treatment Course - LABORATORY CBC & Chemistry Diagram: 01/31/19 18:34 01/31/19 18:34 Medical Decision Making - Medical Decision Making 01/31/19 16:41 53 yo F with h/o HTN, Hypothyroidism, CHF, obesity who worsening Oseguera, orthopena , SOB, BL LE edema beginning 01/27/19. Recent [facility] (01/26-01/28/19) [employer] admission s/p elective Robotic assisted hysterectomy, bilateral salpingectomy, ovarian cystectomy. BP 171/94, vitals otherwise wnl, AF, A&Ox3. Has not been taking home dose Lasix since Saturday (01/25/19). ACS/OK r/o. Will consider acute CHF, pleural effusion. Will assess for cardiac dysarrythmias, hypoglycemia, electrolyte abnml, metabolic and toxic derangements, acid-base disturbances, infection/cystitis. ED Course: Morphine 2 mg 01/31/19 17:02 Laboratory Tests 01/31/19 18:34 WBC 7.4 Hgb 9.1 L Hct 27.1 L Plt Count 251 EKG: NSR with absent TAMMY, STD. Nml interval duration and axis. Nml R wave progression. Absent Q waves. 01/31/19 19:44 Laboratory Tests 01/31/19 01/31/19 18:34 18:34 WBC 7.4 Hgb 9.1 L Hct 27.1 L Plt Count 251 Troponin I < 0.02 B-Natriuretic Peptide 687.3 H Plan to admit for CHF exacerbation. 01/31/19 20:04 Pt. admitted to tele/obs endorsed to Dr. Morocho. *DC/Admit/Observation/Transfer Diagnosis at time of Disposition: CHF (congestive heart failure) Qualifiers: Heart failure type: unspecified Heart failure chronicity: acute on chronic Qualified Code(s): I50.9 - Heart failure, unspecified - Discharge Dispostion Condition at time of disposition: Stable Decision to Admit order: Yes - Referrals Referrals: Delia Urbina MD [Primary Care Provider] - - Patient Instructions Printed Discharge Instructions: DI for High Blood Pressure Additional Instructions: Please return to the emergency department with any new or worsening symptoms or concerns. Please follow up with your primary care physician within 72 hours. - Post Discharge Activity
[2019-01-31] MEDS ORDERED: morphine CARPU-JECT 2 MG/1 ML DISP.SYRIN IVPUSH ONE (16:53)
[2019-01-31] MEDS ORDERED: FUROSEMIDE 40 MG/4 ML INJECTABLE VIAL IVPUSH ONE (17:20)
[2019-01-31] MEDS ORDERED: morphine CARPU-JECT 4 MG/1 ML DISP.SYRIN IVPUSH ONE (17:20)
--- NOTE | 2019-01-31 17:55 | PDOC ---
Documentation entered by Tosha Rose SCRIBE, acting as scribe for Margaret Earl MD. Margaret Earl MD: This documentation has been prepared by the dannyibe, Tosha Rose SCRIBE, under my direction and personally reviewed by me in its entirety. I confirm that the documentation accurately reflects all work, treatment, procedures, and medical decision making performed by me. Attending Attestation - Resident Resident Name: Anthony Melgar - ED Attending Attestation I have performed the following: I have examined & evaluated the patient, The case was reviewed & discussed with the resident, I agree w/resident's findings & plan - HPI HPI: 01/31/19 17:51 Ms. Erazo 53 year old female with past medical history significant for HTN, obesity, systolic CHF, fibroids, asthma, Hypothyroidism, anxiety presents to the emergency department with shortness of breath, leg swelling, back pain, abdominal pain and painful urination. The patient reports she is s/p Robotic assisted hysterectomy, bilateral salpingectomy, ovarian cystectomy (01/[address] Demarco). The patient reports she hasnt been taking her lasix since because she ran out of the medication, since then shes been endorsing increased shortness of breath, worse during the night time, orthopnea where she has to sleep on 5 pillows compared to baseline of 2 pillows. The patient states she also has associated symptoms of b/l leg swelling, dizziness and elevated blood pressure, unrelieved with medication. The patient reports additional complaint of lightheadedness abdominal bloating, constipated, pain with urination, vomiting, and a fever of 102 last night. The patient also reports her weight on Saturday was 194, currently its 210lbs, with a gain of 16 lbs this week.. Allergies: NKDA Vice President Of Human Resources: Dr. Peters PCP: Hoda Sifuentes - Physicial Exam PE: 01/31/19 17:52 NAD, EOMI, PERRL, nl conjunctiva, anicteric; neck supple. No JVD, no respiratory distress, lungs clear, RRR, +Laparoscopic scars well healed, protuberant abdomen, with diffuse tenderness, no focality of symptoms. HORTON x4, no focal neuro deficits. No peripheral edema. normal color for ethnicity, WWP. no calf tenderness. - Medical Decision Making 01/31/19 17:50 I, Margaret Earl MD, attest that this document has been prepared under my direction and personally reviewed by me in its entirety. I further attest, that it accurately reflects all work, treatment, procedures and medical decision -making performed by me. See HPI for details Vital signs reviewed, notable for mildly hypertensive, but off diuretics x several days. Prior notes reviewed, including admissions, discharges and consultations. laboratory results and imaging reviewed, basic labs and lytes wnl, notable for baseline anemia. UA_negative prelim CXR_no acute chest pathology Cardiac panel_neg trops/ EKG normal sinus rhythm at 72 bpm, no interval abnormalities, narrow QRS, ST and T wave segments and morphology normal. Nonspecific T wave abnormalities ED course - analgesia, lasix 40mg IV x1, due to likely CHF exacerbation clinically. - cards cs as inpatient, sees Dr Staley. - admit for CHF flare, off lasix post surgery. medical management, pain control , diuresis and monitoring clinically. 01/31/19 20:24 Heart Score/ECG Review #1 ECG reviewed & interpreted by me at: 17:20 General ECG Interpretation: Sinus Rhythm, Normal Rate, Normal Intervals 01/31/19 17:54 EKG normal sinus rhythm at 72 bpm, no interval abnormalities, narrow QRS, ST and T wave segments and morphology normal. Nonspecific T wave abnormalities
[2019-01-31] MEDS ORDERED: morphine SULFATE 4 MG/ML VIAL ONE (18:20)
[2019-01-31] MEDS ORDERED: FUROSEMIDE 40 MG/4 ML INJECTABLE VIAL ONE (18:21)
[2019-01-31 18:51] LABS: PH,URINE 6.5 (5.0-8.0); URINE APPEARANCE CLOUDY; URINE BILIRUBIN NEGATIVE (NEGATIVE); URINE COLOR YELLOW; URINE GLUCOSE (UA) NEGATIVE (NEGATIVE); URINE KETONE TRACE (NEGATIVE); URINE LEUK ESTERASE NEGATIVE (NEGATIVE); URINE NITRITE NEGATIVE (NEGATIVE); URINE PROTEIN NEGATIVE (NEGATIVE)
[2019-01-31 19:07] LABS: BASO % 0.3 % (0-2.0); EOS % 5.8 % (0-4.5); HEMATOCRIT 27.1 % (32.4-45.2); HEMOGLOBIN 9.1 GM/dL (10.7-15.3); LYMPH % 26.1 % (8-40); MCH 30.5 pg (25.7-33.7); MCHC 33.7 g/dl (32.0-36.0); MEAN CELL VOLUME 90.4 fl (80-96); MEAN PLT VOLUME 8.1 fl (7.5-11.1); MONO % 7.6 % (3.8-10.2); NEUT % 60.2 % (42.8-82.8); PLATELET COUNT 251 K/MM3 (134-434); RDW 13.4 % (11.6-15.6); WHITE BLOOD COUNT 7.4 K/mm3 (4.0-10.0)
[2019-01-31 19:36] LABS: ALBUMIN 3.2 g/dl (3.4-5.0); ALK PHOS 77 U/L (45-117); ANION GAP 7 MMOL/L (8-16); BILIRUBIN,TOTAL 0.4 mg/dL (0.2-1); BLOOD UREA NITROGEN 13 mg/dL (7-18); CALCIUM 9.3 mg/dL (8.5-10.1); CHLORIDE 110 mmol/L (98-107); CO2 26 mmol/L (21-32); CREATININE 0.9 mg/dL (0.55-1.3); GLUCOSE,RANDOM 122 mg/dL (74-106); N-TERMINAL BNP 687.3 pg/ml (5-125); POTASSIUM 3.7 mmol/L (3.5-5.1); SGOT/AST 34 U/L (15-37); SGPT/ALT 49 U/L (13-61); SODIUM 142 mmol/L (136-145); TOT PROT 6.7 g/dl (6.4-8.2)
[2019-01-31] MEDS ORDERED: ALBUTEROL SO4 8 GM HFA INHALER IH PRN ×2 (20:13→20:31)
--- NOTE | 2019-01-31 20:15 | HP ---
CHIEF COMPLAINT: Shortness of breath PCP: Dr. Lin HISTORY OF PRESENT ILLNESS: 53 year old female with past medical history of hypertension, hypothyroidism obesity, systolic CHF, fibroids, asthma, Hypothyroidism, anxiety, presents to the ED with shortness of breath on exertion for around 1 week duration. Patient states she had a robotic hysterectomy w/ bilateral salpingectomy and ovarian cystectomy. Reports running out of her home lasix 1 week ago. States that her legs have been more swollen and that she gained 8 pounds. Reports what caused her to come to ED was elevated BP in the setting of worsening SOB. Denies chest pain and reports improved SOB. States she has abdominal pain when she urinates. Denies frequency or urgency. Denies any blood in her stool, nausea, vomiting, diarrhea, fevers, chills. ER course was notable for: (1) BNP ~ 600 (2) (3) Recent Travel: denies PAST MEDICAL HISTORY: hypertension, hypothyroidism obesity, systolic CHF, fibroids, asthma, Hypothyroidism, anxiety PAST SURGICAL HISTORY: b/l hysterectomy w/ bilateral ovarian cystectomy Social History: Smoking: denies Alcohol: denies Drugs: denies Family History: denies Allergies No Known Allergies Allergy (Verified 01/26/19 06:41) HOME MEDICATIONS: Home Medications Medication Instructions Recorded Aspirin [Aspirin EC] 81 mg PO DAILY 11/12/18 Ergocalciferol (Vitamin D2) 50,000 unit PO WEEKLY 11/12/18 [Vitamin D2] Ferrous Sulfate 325 mg PO BID 11/12/18 Levothyroxine [Synthroid -] 25 mcg PO DAILY 11/12/18 Pantoprazole Sodium [Protonix -] 20 mg PO DAILY 11/12/18 Albuterol Sulfate Inhaler - 1 - 2 inh PO PRN PRN 01/16/19 [Ventolin HFA Inhaler -] Atorvastatin Ca [Lipitor] 10 mg PO DAILY 01/16/19 Carvedilol [Coreg -] 12.5 mg PO BID #30 tablet 01/18/19 Furosemide [Lasix -] 20 mg PO ASDIR 01/23/19 Losartan Potassium 25 mg PO DAILY 01/23/19 oxyCODONE HCL [Roxicodone -] 5 mg PO Q4H PRN #12 tablet MDD 6 01/28/19 REVIEW OF SYSTEMS CONSTITUTIONAL: weight change Absent: fever, chills, diaphoresis, generalized weakness, malaise, loss of appetite, HEENT: Absent: rhinorrhea, nasal congestion, throat pain, throat swelling, difficulty swallowing, mouth swelling, ear pain, eye pain, visual changes CARDIOVASCULAR: Absent: chest pain, syncope, palpitations, irregular heart rate, lightheadedness , peripheral edema RESPIRATORY: shortness of breath Absent: cough, dyspnea with exertion, orthopnea, wheezing, stridor, hemoptysis GASTROINTESTINAL: abdominal pain, abdominal distension Absent: nausea, vomiting, diarrhea, constipation, melena, hematochezia GENITOURINARY: Absent: dysuria, frequency, urgency, hesitancy, hematuria, flank pain, genital pain MUSCULOSKELETAL: Absent: myalgia, arthralgia, joint swelling, back pain, neck pain SKIN: Absent: rash, itching, pallor HEMATOLOGIC/IMMUNOLOGIC: Absent: easy bleeding, easy bruising, lymphadenopathy, frequent infections ENDOCRINE: Absent: unexplained weight gain, unexplained weight loss, heat intolerance, cold intolerance NEUROLOGIC: Absent: headache, focal weakness or paresthesias, dizziness, unsteady gait, seizure, mental status changes, bladder or bowel incontinence PSYCHIATRIC: Absent: anxiety, depression, suicidal or homicidal ideation, hallucinations. PHYSICAL EXAMINATION Vital Signs - 24 hr 01/31/19 16:23 Temperature 98 F Pulse Rate 72 Respiratory 20 Rate Blood Pressure 171/94 H O2 Sat by Pulse 98 Oximetry (%) GENERAL: A&Ox3, no acute distress EYES: PERRLA, EOMI ENT: Moist mucus membranes NECK: No JVD LUNGS: CTA, mild crackles noted b/l HEART: RRR, no murmurs ABDOMEN: Soft, mildly ttp diffusely, more in the inferior abdomen, surgical scars well healed MUSCULOSKELETAL: No CVA Tenderness EXTREMITIES: 2+ pulses, 2+ edema noted b/l NEUROLOGICAL: Cranial nerves II-XII intact. Laboratory Results - last 24 hr 01/31/19 01/31/19 01/31/19 18:34 18:34 18:34 WBC 7.4 RBC 3.00 L Hgb 9.1 L Hct 27.1 L MCV 90.4 MCH 30.5 MCHC 33.7 RDW 13.4 Plt Count 251 MPV 8.1 Absolute Neuts (auto) 4.5 Neutrophils % 60.2 Lymphocytes % 26.1 Monocytes % 7.6 Eosinophils % 5.8 H D Basophils % 0.3 Nucleated RBC % 0 Sodium 142 Potassium 3.7 Chloride 110 H Carbon Dioxide 26 Anion Gap 7 L BUN 13 Creatinine 0.9 Creat Clearance w eGFR 66.01 Random Glucose 122 H Calcium 9.3 Total Bilirubin 0.4 AST 34 ALT 49 Alkaline Phosphatase 77 Creatine Kinase 57 Troponin I < 0.02 B-Natriuretic Peptide 687.3 H Total Protein 6.7 Albumin 3.2 L Urine Color Yellow Urine Appearance Cloudy Urine pH 6.5 Ur Specific [place] 1.028 Urine Protein Negative Urine Glucose (UA) Negative Urine Ketones Trace H Urine Blood Negative Urine Nitrite Negative Urine Bilirubin Negative Urine Urobilinogen 1.0 Ur Leukocyte Esterase Negative ASSESSMENT/PLAN: 53 year old female with past medical history of hypertension, hypothyroidism obesity, systolic CHF, fibroids, asthma, Hypothyroidism, anxiety, presents to the ED with shortness of breath on exertion for around 1 week duration. #CHF Exacerbation: mild exacerbation due to clinical symptoms of SOB on exertion and peripheral edema, weight gain, mildly elevated BNP -echo in nov 2018 showed mild-moderate global hypokinesis of LV with reduction in function -tele monitoring -daily weights -accurate I's/O's -lasix 40 IV BID -Dr. 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 Morocho Visit type - Emergency Visit Emergency Visit: Yes Care time: The patient presented to the Emergency Department on the above date and was hospitalized for further evaluation of their emergent condition. - New Patient This patient is new to me today: Yes Date on this admission: 01/31/19 - Critical Care Critical Care patient: No
[2019-01-31] MEDS ORDERED: DOCUSATE SODIUM 100 MG CAPSULE (FP) PO PRN (20:38)
[2019-01-31] MEDS ORDERED: CARVEDILOL 12.5 MG TABLET (FP) PO SCH ×2 (22:00)
[2019-01-31] MEDS ORDERED: PATIENT'S OWN MEDICATION (NON-FORMULARY) (Ferrous Sulfate [Ferrous Sulfate] 325 MG) PO SCH (22:00)
[2019-01-31] MEDS ORDERED: oxyCODONE HCL 5 MG TABLET ONE (22:06)
[2019-01-31] MEDS: oxyCODONE HCL 5 MG TABLET PO PRN (22:10)
[2019-01-31] MEDS ORDERED: FERROUS SO4 325 MG TABLET (FP) ONE (22:36)
[2019-01-31] MEDS ORDERED: CARVEDILOL 12.5 MG TABLET (FP) ONE (22:36)
[2019-01-31] MEDS: SENNOSIDES 8.6MG TABLET (FP) PO SCH (23:00)
[2019-01-31] MEDS: CARVEDILOL 12.5 MG TABLET (FP) PO SCH (23:00)
[2019-01-31] MEDS: FERROUS SO4 325 MG TABLET (FP) PO SCH (23:00)
--- NOTE | 2019-01-31 23:06 | PN ---
Teaching Attending Note Name of Resident: Butch Chavez ATTENDING PHYSICIAN STATEMENT I saw and evaluated the patient. I reviewed the resident's note and discussed the case with the resident. I agree with the resident's findings and plan as documented. SUBJECTIVE: 53 year old female with past medical history of hypertension, hypothyroidism obesity, systolic CHF, fibroids, asthma, Hypothyroidism, anxiety, presents to the ED with shortness of breath on exertion for around 1 week duration. OBJECTIVE: s1 and s2 rrr lungs CTA good air entry - bibasilar crackles abdomen soft tender steristrips noted with scar healing +1 pitting edema pERRLA ASSESSMENT AND PLAN: Acute on chronic HFrEF exacerbation mild exacerbation due to clinical symptoms of SOB on exertion and peripheral edema, weight gain, mildly elevated BNP -echo in nov 2018 showed mild-moderate global hypokinesis of LV with reduction in function -tele monitoring -daily weights -accurate I's/O's -furosemide 40 IV twice a day -Dr. 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
[2019-01-31] MEDS ORDERED: diphenhydrAMINE HCL 25 MG CAPSULE (FP) PO ONE ×2 (23:15→23:16)
[2019-02-01] MEDS ORDERED: oxyCODONE HCL 5 MG TABLET ONE ×3 (04:42→20:31)
[2019-02-01] MEDS: oxyCODONE HCL 5 MG TABLET PO PRN ×3 (04:50→20:33)
[2019-02-01] MEDS ORDERED: LEVOTHYROXINE NA 25 MCG TABLET (FP) ONE (06:06)
[2019-02-01] MEDS ORDERED: FUROSEMIDE 40 MG/4 ML INJECTABLE VIAL ONE ×2 (06:06→15:18)
[2019-02-01] MEDS: LEVOTHYROXINE NA 25 MCG TABLET (FP) PO SCH (06:14)
[2019-02-01] MEDS: FUROSEMIDE 40 MG/4 ML INJECTABLE VIAL IVPUSH SCH ×2 (06:14→15:24)
[2019-02-01 07:17] LABS: HEMATOCRIT 28.3 % (32.4-45.2); HEMOGLOBIN 9.8 GM/dL (10.7-15.3); MCH 31.3 pg (25.7-33.7); MCHC 34.4 g/dl (32.0-36.0); MEAN CELL VOLUME 90.8 fl (80-96); PLATELET COUNT 249 K/MM3 (134-434); RBC 3.12 M/mm3 (3.60-5.2); RDW 13.3 % (11.6-15.6); WHITE BLOOD COUNT 7.1 K/mm3 (4.0-10.0)
[2019-02-01 07:20] LABS: ANION GAP 8 MMOL/L (8-16); BLOOD UREA NITROGEN 12 mg/dL (7-18); CALCIUM 9.2 mg/dL (8.5-10.1); CHLORIDE 106 mmol/L (98-107); CO2 27 mmol/L (21-32); CREATININE 0.9 mg/dL (0.55-1.3); GLUCOSE,RANDOM 102 mg/dL (74-106); MAGNESIUM 2.2 mg/dL (1.8-2.4); PHOSPHOROUS 3.8 mg/dL (2.5-4.9); POTASSIUM 3.7 mmol/L (3.5-5.1); SODIUM 141 mmol/L (136-145)
--- NOTE | 2019-02-01 09:42 | CON.CARD ---
Consult Consult Specialty:: Cardiology Referred by:: Dr. Vaz Reason for Consultation:: SOB, PND - History of Present Illness Chief Complaint: SOB History of Present Illness: 53 year old female with past medical history of hypertension, hypothyroidism obesity, systolic CHF, fibroids, asthma, Hypothyroidism, anxiety, presents to the ED with shortness of breath on exertion for around 1 week duration. Patient states she had a robotic hysterectomy w/ bilateral salpingectomy and ovarian cystectomy. Reports running out of her home lasix 1 week ago. States that her legs have been more swollen and that she gained 8 pounds. Reports what caused her to come to ED was elevated BP in the setting of worsening SOB. Denies chest pain and reports improved SOB. States she has abdominal pain when she urinates. Denies frequency or urgency. Denies any blood in her stool, nausea, vomiting, diarrhea, fevers, chills. Reports receiving IV fluids after surgery. Ran out of lasix and developed above sx of PND and SOB. Reports having cardiac cath at [place], non-obstructive. Echo here in Nov, moderate LV systolic dysx - History Source History Provided By: Patient, Medical Record - Past Medical History Cardio/Vascular: Yes: CHF, HTN Pulmonary: Yes: Asthma Gastrointestinal: Yes: Ulcerative Colitis Renal/: Yes: Renal Inusuff ...LMP: 01/09/19 - Past Surgical History Past Surgical History: Yes: Tubal Ligation - Alcohol/Substance Use Hx Alcohol Use: No History of Substance Use: reports: None - Smoking History Smoking history: Unknown if ever smoked Have you smoked in the past 12 months: No Aproximately how many cigarettes per day: 2 If you are a former smoker, when did you quit?: 2000 - Social History ADL: Independent History of Recent Travel: No Home Medications - Allergies Allergies/Adverse Reactions: Allergies Allergy/AdvReac Type Severity Reaction Status Date / Time No Known Allergies Allergy Verified 01/26/19 06:41 - Home Medications Home Medications: Ambulatory Orders Aspirin [Aspirin EC] 81 mg PO DAILY 11/12/18 Ergocalciferol (Vitamin D2) [Vitamin D2] 50,000 unit PO WEEKLY 11/12/18 Ferrous Sulfate 325 mg PO BID 11/12/18 Levothyroxine [Synthroid -] 25 mcg PO DAILY 11/12/18 Pantoprazole Sodium [Protonix -] 20 mg PO DAILY 11/12/18 Albuterol Sulfate Inhaler - [Ventolin HFA Inhaler -] 1 - 2 inh PO PRN PRN Atorvastatin Ca [Lipitor] 10 mg PO DAILY 01/16/19 Carvedilol [Coreg -] 12.5 mg PO BID #30 tablet 01/18/19 Furosemide [Lasix -] 20 mg PO ASDIR 01/23/19 Losartan Potassium 25 mg PO DAILY 01/23/19 oxyCODONE HCL [Roxicodone -] 5 mg PO Q4H PRN #12 tablet MDD 6 01/28/19 Family Disease History - Family Disease History Family Disease History: Diabetes: Mother, Heart Disease: Father (renal failure) , Other: Father Review of Systems Findings/Remarks: see HPI - Review of Systems Cardiovascular: reports: Edema, Shortness of Breath Respiratory: reports: Exercise Intolerance, Orthopnea Gastrointestinal: reports: Other (abdominal distension) Genitourinary: denies: No Symptoms, Burning, Discharge, Dysuria, Flank Pain, Frequency, Hematuria, Incontinence, Lesions, Menses, Pain, Testicular Mass, Testicular Pain, Testicular Swelling, Urgency, Vaginal Bleeding, Other Breasts: denies: No Symptoms Reported, See HPI, Breast Implants, Discharge from Nipple, Lumps, Pain, Skin Changes, Other Musculoskeletal: denies: No Symptoms, Back Pain, Crepitus, Decreased ROM, Extremity Pain, Joint Pain, Joint Swelling, Muscle Pain, Muscle Cramps, Muscle Weakness, Other Integumentary: denies: No Symptoms, Blister, Bruising, Change in Color, Eczema, Erythema, Incision, Lesions, Lump, Pallor, Pruritis, Rash, Wound, Other Neurological: denies: No Symptoms, Change in LOC, Change in Speech, Confusion, Dizziness, Headache, Incoordination, Numbness, Parasthesia, Pre-Existing Deficit , Seizure, Syncope, Tremors, Unsteady Gait, Weakness, Other Endocrine: denies: No Symptoms, Excessive Sweating, Flushing, Increased Hunger, Increased Thirst, Intolerance to Cold, Intolerance to Heat, Unexplained Weight Gain, Unexplained Weight Loss, Other Hematology/Lymphatic: denies: No Symptoms, Easily Bruised, Excessive Bleeding, Swollen Glands, Other Psychiatric: denies: No Symptoms, Altered Sleep Pattern, Anxiety, Depression, Hallucinations, Panic, Paranoia, Suicidal, Other - Risk Factors Known Risk Factors: Yes: Hypertension Vital Signs: Vital Signs Temperature 97.9 F 02/01/19 07:11 Pulse Rate 89 02/01/19 07:11 Respiratory Rate 18 02/01/19 03:28 Blood Pressure 109/82 02/01/19 07:11 O2 Sat by Pulse Oximetry (%) 97 02/01/19 07:11 Constitutional: Yes: No Distress Eyes: Yes: Conjunctiva Clear, EOM Intact HENT: Yes: Atraumatic, Normocephalic Neck: Yes: Trachea Midline Respiratory: Yes: CTA Bilaterally Gastrointestinal: Yes: Soft, Abdomen, Obese Cardiovascular: Yes: Regular Rate and Rhythm JVD: Yes Carotid Bruit: No PMI: Non-Displaced Heart Sounds: Yes: S1, S2 Edema: No Peripheral Pulses WNL: Yes Neurological: Yes: Alert, Oriented ...Motor Strength: WNL - Other Data Labs, Other Data: CBC, BMP 02/01/19 06:00 02/01/19 06:00 Troponin, BNP 01/31/19 18:34 Troponin I < 0.02 B-Natriuretic Peptide 687.3 H Troponin, BNP 01/31/19 18:34 Troponin I < 0.02 B-Natriuretic Peptide 687.3 H Laboratory Tests 01/31/19 02/01/19 02/01/19 18:34 06:00 06:00 WBC 7.1 Hgb 9.8 L Plt Count 249 Sodium 141 Potassium 3.7 BUN 12 Creatinine 0.9 Magnesium 2.2 Creatine Kinase 57 Troponin I < 0.02 B-Natriuretic Peptide 687.3 H NSR , no acute changes Echo: Report Reviewed Imaging - Results Chest X-ray: Image Reviewed EKG: Image Reviewed Problem List - Problems (1) CHF (congestive heart failure) Code(s): I50.9 - HEART FAILURE, UNSPECIFIED Qualifiers: Heart failure type: unspecified Heart failure chronicity: acute on chronic Qualified Code(s): I50.9 - Heart failure, unspecified (2) Hypertension Code(s): I10 - ESSENTIAL (PRIMARY) HYPERTENSION Qualifiers: Hypertension type: essential hypertension Qualified Code(s): I10 - Essential (primary) hypertension (3) Hypothyroidism Code(s): E03.9 - HYPOTHYROIDISM, UNSPECIFIED (4) Obesity (BMI 30-39.9) Code(s): E66.9 - OBESITY, UNSPECIFIED Assessment/Plan IMP: 1. Acute on chronic systolic CHF in setting receiving post op IVF and not taking Lasix (ran out) 2. Reported non-ischemic CM 3. Chronic HTN 4. Obesity 5. History of asthma 6. Chronic Anemia REC: 1. Seems to have had clear precipitant. -IV Lasix today. -Can resume usual PO dose in AM -Likely plan discharge in AM if remains stable. 2. Continue home doses Carvedilol and Losartan. 3. Check AM BMP.
[2019-02-01] MEDS ORDERED: LOSARTAN POTASSIUM 25 MG TABLET PO SCH (10:00)
[2019-02-01] MEDS ORDERED: PANTOPRAZOLE 20 MG TABLET (FP) PO SCH (10:00)
[2019-02-01] MEDS ORDERED: LOSARTAN POTASSIUM 50 MG TABLET (FP) PO SCH (10:00)
[2019-02-01] MEDS ORDERED: ASPIRIN COATED 81 MG TABLET.EC PO SCH (10:00)
[2019-02-01] MEDS: CARVEDILOL 12.5 MG TABLET (FP) PO SCH ×2 (10:59→21:44)
[2019-02-01] MEDS: FERROUS SO4 325 MG TABLET (FP) PO SCH ×2 (10:59→21:44)
[2019-02-01] MEDS ORDERED: ACETAMINOPHEN 325 MG TABLET (FP) PO PRN (12:47)
--- NOTE | 2019-02-01 12:49 | PN ---
Physical Exam: SUBJECTIVE: Patient seen and examined, reports abdominal discomfort at surgical site, no recent worsening. breathing improved, swelling improved. OBJECTIVE: Vital Signs Period Temp Pulse Resp BP Sys/Sigala Pulse Ox Last 24 Hr 97.9 F-98 F 72-89 18-20 109-171/76-98 96-99 Intake & Output 01/29/19 01/30/19 01/31/19 02/01/19 23:59 23:59 23:59 23:59 Weight 205 lb GENERAL: sitting in bed in no acute distress Chest: CTAb, no rales or wheezing Abdomen:Soft, obese, laparoscopic site clean, vague tenderness around the surgical site, no voluntary or involuntary guarding or rigidity, positive bowel sounds Extremities: trace pedal edema Neck: soft, supple, no JVD Laboratory Results - last 24 hr 01/31/19 01/31/19 01/31/19 18:34 18:34 18:34 WBC 7.4 RBC 3.00 L Hgb 9.1 L Hct 27.1 L MCV 90.4 MCH 30.5 MCHC 33.7 RDW 13.4 Plt Count 251 MPV 8.1 Absolute Neuts (auto) 4.5 Neutrophils % 60.2 Lymphocytes % 26.1 Monocytes % 7.6 Eosinophils % 5.8 H D Basophils % 0.3 Nucleated RBC % 0 Sodium 142 Potassium 3.7 Chloride 110 H Carbon Dioxide 26 Anion Gap 7 L BUN 13 Creatinine 0.9 Creat Clearance w eGFR 66.01 Random Glucose 122 H Calcium 9.3 Phosphorus Magnesium Total Bilirubin 0.4 AST 34 ALT 49 Alkaline Phosphatase 77 Creatine Kinase 57 Troponin I < 0.02 B-Natriuretic Peptide 687.3 H Total Protein 6.7 Albumin 3.2 L Urine Color Yellow Urine Appearance Cloudy Urine pH 6.5 Ur Specific [place] 1.028 Urine Protein Negative Urine Glucose (UA) Negative Urine Ketones Trace H Urine Blood Negative Urine Nitrite Negative Urine Bilirubin Negative Urine Urobilinogen 1.0 Ur Leukocyte Esterase Negative 02/01/19 02/01/19 06:00 06:00 WBC 7.1 RBC 3.12 L Hgb 9.8 L Hct 28.3 L MCV 90.8 MCH 31.3 MCHC 34.4 RDW 13.3 Plt Count 249 MPV 8.0 Absolute Neuts (auto) Neutrophils % Lymphocytes % Monocytes % Eosinophils % Basophils % Nucleated RBC % Sodium 141 Potassium 3.7 Chloride 106 Carbon Dioxide 27 Anion Gap 8 BUN 12 Creatinine 0.9 Creat Clearance w eGFR 66.01 Random Glucose 102 Calcium 9.2 Phosphorus 3.8 Magnesium 2.2 Total Bilirubin AST ALT Alkaline Phosphatase Creatine Kinase Troponin I B-Natriuretic Peptide Total Protein Albumin Urine Color Urine Appearance Urine pH Ur Specific [place] Urine Protein Urine Glucose (UA) Urine Ketones Urine Blood Urine Nitrite Urine Bilirubin Urine Urobilinogen Ur Leukocyte Esterase Active Medications Generic Name Dose Route Start Last Admin Trade Name Freq PRN Reason Stop Dose Admin Albuterol Sulfate 1 puff 01/31/19 20:13 Ventolin Hfa Inhaler - IH Q6H PRN Dyspnea Albuterol Sulfate 2 puff 01/31/19 20:31 Ventolin Hfa Inhaler - IH Q6H PRN Dyspnea Aspirin 81 mg 02/01/19 10:00 02/01/19 10:59 Ecotrin - PO 81 mg DAILY FRANNIE Administration Atorvastatin Calcium 10 mg 02/01/19 22:00 Lipitor - PO HS FRANNIE Carvedilol 12.5 mg 01/31/19 22:00 02/01/19 10:59 Coreg - PO 12.5 mg BID FRANNIE Administration Docusate Sodium 100 mg 01/31/19 20:38 Colace - PO Q12H PRN CONSTIPATION Ergocalciferol 50,000 unit 02/02/19 10:00 Drisdol - PO Mo@1000 [facility] Ferrous Sulfate 325 mg 01/31/19 22:00 02/01/19 10:59 Feosol - PO 325 mg BID FRANNIE Administration Furosemide 40 mg 02/01/19 06:00 02/01/19 06:14 Lasix Injection - IVPUSH 40 mg BID@0600,1400 [facility] Administration Levothyroxine Sodium 25 mcg 02/01/19 07:00 02/01/19 06:14 Synthroid - PO 25 mcg DAILY@0700 FRANNIE Administration Losartan Potassium 50 mg 02/01/19 10:00 02/01/19 10:59 Cozaar - PO 50 mg DAILY FRANNIE Administration Oxycodone HCl 5 mg 01/31/19 20:13 02/01/19 12:09 Roxicodone - PO 5 mg Q4H PRN Administration PAIN LEVEL 1-5 Pantoprazole Sodium 20 mg 02/01/19 10:00 02/01/19 10:59 Protonix - PO 20 mg DAILY FRANNIE Administration Senna 1 tab 01/31/19 22:00 01/31/19 23:00 Senna - PO 1 tab HS FRANNIE Administration CXR results reviewed ASSESSMENT/PLAN: 53 yof with PMHx of HTN, hypothyroidism, asthma, obesity, nonischemic cardiomyopathy, chronic systolic HF (last Echo 11/2018 EF 40-45%), cath 08/2018 with non obstructive dz, dizziness/syncope in 11/2018 felt from vasovagal/over diuresis, recently admitted with GERARD/anemia, now s/p Lap hysterectomy/BSO comes with progressive dyspnea in the setting of not taking her lasix for 1 week -Acute on chronic systolic heart failure exacerbation, in the setting of non compliance -Recent lap hysterectomy/BSO/cystectomy 01/26/2019 -Non ischemic cardiomyopathy -Chronic systolic HF (Last Echo 11/2018 EF 40-45%), cath 08/2018 with non obstructive dz -HTN -Hypothyroidism -Asthma -Obesity Plan: Cardiology input noted. IV lasix today, transition to PO in AM if no concerns. Continue ASA/statin/coreg/Losartan/levothyroxine Pain control tylenol/oxycodone, outpatient Real Estate Manager follow up Dispo d/c in 24 hours if no new events. Plan discussed with patient in detail, all questions answered. Visit type - Emergency Visit Emergency Visit: Yes ED Registration Date: 01/31/19 Care time: The patient presented to the Emergency Department on the above date and was hospitalized for further evaluation of their emergent condition. - New Patient This patient is new to me today: Yes Date on this admission: 02/01/19 - Critical Care Critical Care patient: No - Discharge Referral Referred to [facility] Med P.C.: No
--- NOTE | 2019-02-01 15:27 | EKG ---
Test Reason : Blood Pressure : / mmHG Vent. Rate : 072 BPM Atrial Rate : 072 BPM P-R Int : 152 ms QRS Dur : 088 ms QT Int : 422 ms P-R-T Axes : 015 012 058 degrees QTc Int : 462 ms NORMAL SINUS RHYTHM NORMAL ECG WHEN COMPARED WITH ECG OF 16-JAN-2019 22:21, NO SIGNIFICANT CHANGE WAS FOUND Confirmed by NUZHAT RITCHIE MD ([id number]) on 02/01/2019 3:27:33 PM Referred By: Confirmed By:NUZHAT RITCHIE MD
[2019-02-01] MEDS ORDERED: ACETAMINOPHEN 325 MG TABLET (FP) PO ONE (20:51)
[2019-02-01] MEDS ORDERED: CARVEDILOL 12.5 MG TABLET (FP) ONE (21:09)
[2019-02-01] MEDS ORDERED: ATORVASTATIN CA 10 MG TABLET (FP) ONE (21:09)
[2019-02-01] MEDS ORDERED: FERROUS SO4 325 MG TABLET (FP) ONE (21:09)
[2019-02-01] MEDS: SENNOSIDES 8.6MG TABLET (FP) PO SCH (21:44)
[2019-02-01] MEDS ORDERED: ATORVASTATIN CA 10 MG TABLET (FP) PO SCH (22:00)
[2019-02-02] MEDS ORDERED: LEVOTHYROXINE NA 25 MCG TABLET (FP) ONE (06:13)
[2019-02-02] MEDS ORDERED: FUROSEMIDE 40 MG/4 ML INJECTABLE VIAL ONE (06:14)
[2019-02-02] MEDS: FUROSEMIDE 40 MG/4 ML INJECTABLE VIAL IVPUSH SCH (06:22)
[2019-02-02] MEDS: LEVOTHYROXINE NA 25 MCG TABLET (FP) PO SCH (06:22)
[2019-02-02] MEDS: oxyCODONE HCL 5 MG TABLET PO PRN (06:22)
[2019-02-02] MEDS ORDERED: oxyCODONE HCL 5 MG TABLET ONE (06:23)
[2019-02-02 06:56] LABS: BASO % 0.5 % (0-2.0); HEMATOCRIT 31.2 % (32.4-45.2); HEMOGLOBIN 10.7 GM/dL (10.7-15.3); LYMPH % 23.9 % (8-40); MCHC 34.2 g/dl (32.0-36.0); MEAN CELL VOLUME 90.4 fl (80-96); MEAN PLT VOLUME 7.8 fl (7.5-11.1); MONO % 9.4 % (3.8-10.2); NEUT % 61.2 % (42.8-82.8); PLATELET COUNT 277 K/MM3 (134-434); RBC 3.46 M/mm3 (3.60-5.2); RDW 13.4 % (11.6-15.6); WHITE BLOOD COUNT 8.1 K/mm3 (4.0-10.0)
[2019-02-02 07:19] LABS: ANION GAP 6 MMOL/L (8-16); BLOOD UREA NITROGEN 18 mg/dL (7-18); CALCIUM 9.3 mg/dL (8.5-10.1); CHLORIDE 104 mmol/L (98-107); CO2 27 mmol/L (21-32); CREATININE 0.9 mg/dL (0.55-1.3); GLUCOSE,RANDOM 108 mg/dL (74-106); PHOSPHOROUS 4.4 mg/dL (2.5-4.9); POTASSIUM 3.8 mmol/L (3.5-5.1); SODIUM 138 mmol/L (136-145)
[2019-02-02 08:09] VITALS: BP 110/72; PULSE 90
--- NOTE | 2019-02-02 08:19 | DS ---
Physical Exam: SUBJECTIVE: Patient seen and examined, ambulating in the ED, no complaints. OBJECTIVE: Vital Signs Period Temp Pulse Resp BP Sys/Sigala Pulse Ox Last 24 Hr 98.6 F 81-99 18-20 96-129/71-79 95-97 Intake & Output 01/30/19 01/31/19 02/01/19 02/02/19 23:59 23:59 23:59 23:59 Weight 205 lb PHYSICAL EXAM GENERAL: The patient is awake, alert, and fully oriented, in no acute distress. HEAD: Normal with no signs of trauma. EYES: PERRL, extraocular movements intact, sclera anicteric, conjunctiva clear. ENT: Ears normal, nares patent, oropharynx clear without exudates, moist mucous membranes. NECK: soft, supple, no JVD visualized LUNGS: Breath sounds equal, clear to auscultation bilaterally, no wheezes, no crackles, no accessory muscle use. HEART: Regular rate and rhythm, S1, S2 ABDOMEN: Soft, nontender, laparoscopic sites clean, no voluntary or involuntary guarding or rigidity, no new distension, positive bowel sounds EXTREMITIES: 2+ pulses, warm, well-perfused, no edema. NEUROLOGICAL: Cranial nerves II through XII grossly intact. Normal speech, gait normal PSYCH: Normal mood, normal affect. SKIN: Warm, dry, normal turgor, no rashes or lesions noted. LABS Laboratory Results - last 24 hr 02/02/19 02/02/19 05:50 05:50 WBC 8.1 RBC 3.46 L Hgb 10.7 Hct 31.2 L MCV 90.4 MCH 31.0 MCHC 34.2 RDW 13.4 Plt Count 277 MPV 7.8 Absolute Neuts (auto) 5.0 Neutrophils % 61.2 Lymphocytes % 23.9 Monocytes % 9.4 Eosinophils % 5.0 H Basophils % 0.5 Nucleated RBC % 0 Sodium 138 Potassium 3.8 Chloride 104 Carbon Dioxide 27 Anion Gap 6 L BUN 18 Creatinine 0.9 Creat Clearance w eGFR 66.01 Random Glucose 108 H Calcium 9.3 Phosphorus 4.4 Magnesium 2.0 HOSPITAL COURSE: Date of Admission:01/31/19 Date of Discharge: 02/02/19 Minutes to complete discharge: 40 Discharge Summary Reason For Visit: CONGESTIVE HEART FAILURE Current Active Problems CHF (congestive heart failure) (Acute) Hospital Course: 53 yof with PMHx of HTN, hypothyroidism, asthma, obesity, nonischemic cardiomyopathy, chronic systolic HF (last Echo 11/2018 EF 40-45%), cath 08/2018 with non obstructive dz, dizziness/syncope in 11/2018 felt from vasovagal/over diuresis, recently admitted with EGRARD/anemia, now s/p Lap hysterectomy/BSO comes with progressive dyspnea in the setting of not taking her lasix for 1 week. Patient was placed on lasix 40 mg IV BID with improvement. she was seen by cardiology with no recommendations for additional interventions. She has been provided counseling on CHF management and medication compliance. She will be discharged home in stable condition with outpatietn follow up with her PCP, cage tender and costume rental clerk. Condition: Stable - Instructions Diet, Activity, Other Instructions: You were admitted with congestive heart failure, received lasix intravenously with improvement. Your oxygenation and kidney function have been stable. You were seen by cage tender MEDICATIONS: Lasix 40 mg daily for 1 week, then as directed by your primary care doctor or cage tender (prescription has been sent to [facility] pharmacy) Continue other medications as before INSTRUCTIONS: Strongly advise to check your weights daily and notify doctor if weight gain > 3lbs in 2 days. Take your medications as directed You will need monitoring of your kidney function with your doctor FOLLOW UP: With primary care doctor in 1 week With cage tender in 1-2 weeks With your costume rental clerk as directed by her. Blood work to check your kidneys BMP (basic metabolic panel) in 1 week with your doctor. If you notice any new fevers, chills, trouble breathing, or any new concerns, please call 911 or come to the ED. Referrals: Shona Demarco MD [Staff Physician] - Tori Peters MD [Staff Physician] - Delia Urbina MD [Primary Care Provider] - Disposition: HOME - Home Medications Comprehensive Discharge Medication List: Ambulatory Orders Aspirin [Aspirin EC] 81 mg PO DAILY 11/12/18 Ergocalciferol (Vitamin D2) [Vitamin D2] 50,000 unit PO WEEKLY 11/12/18 Ferrous Sulfate 325 mg PO BID 11/12/18 Levothyroxine [Synthroid -] 25 mcg PO DAILY 11/12/18 Pantoprazole Sodium [Protonix -] 20 mg PO DAILY 11/12/18 Albuterol Sulfate Inhaler - [Ventolin HFA Inhaler -] 1 - 2 inh PO PRN PRN Atorvastatin Ca [Lipitor] 10 mg PO DAILY 01/16/19 Carvedilol [Coreg -] 12.5 mg PO BID #30 tablet 01/18/19 Losartan Potassium 25 mg PO DAILY 01/23/19 oxyCODONE HCL [Roxicodone -] 5 mg PO Q4H PRN #12 tablet MDD 6 01/28/19 Furosemide 40 mg PO DAILY #60 tablet 02/02/19 This patient is new to me today: No Emergency Visit: Yes ED Registration Date: 01/31/19 Care time: The patient presented to the Emergency Department on the above date and was hospitalized for further evaluation of their emergent condition. Critical Care patient: No - Discharge Referral Referred to [facility] Med P.C.: No
[2019-02-02 08:57] VITALS: TEMP 97.9
[2019-02-02] MEDS ORDERED: ERGOCALCIFEROL (VITAMIN D2) 50,000 UNIT CAPSULE (FP) PO SCH (10:00)
== END 2019-02-02 09:15 | disposition home or self-care (01) ==
LOC: JER 16:20 → JERBED 19:45
PROVIDERS: ADMIT Internal Medicine; ATTEND Hospitalist
PROC: 3E033NZ Introduction of Analgesics, Hypnotics, Sedatives into Peripheral Vein, Percutaneous Approach (ICD-10-PCS; principal; 2019-01-31)
PROC: 3E033GC Introduction of Other Therapeutic Substance into Peripheral Vein, Percutaneous Approach (ICD-10-PCS; 2019-01-31)
DX: I50.23 Acute on chronic systolic (congestive) heart failure (principal); I11.0 Hypertensive heart disease with heart failure; E78.5 Hyperlipidemia, unspecified; E03.9 Hypothyroidism, unspecified; J45.909 Unspecified asthma, uncomplicated; F41.9 Anxiety disorder, unspecified; E66.9 Obesity, unspecified; Z68.37 Body mass index [BMI] 37.0-37.9, adult; Z91.14 Patient's other noncompliance with medication regimen; Z79.82 Long term (current) use of aspirin; Z90.710 Acquired absence of both cervix and uterus; Z90.721 Acquired absence of ovaries, unilateral; Z87.42 Personal history of other diseases of the female genital tract
CPT/HCPCS: 36415; 71045-TC-FY; 80048; 80053; 81003; 82550; 83735; 83880; 84100; 84484; 85025; 85027; 93005; 93010; 94761; 96374; 96375; 96376; 99283-25; G0378

== ENCOUNTER 2019-03-12 09:33 | Inpatient (IN) | payer OTHER ==
[2019-03-12 10:11] VITALS: BMI 39.3
--- NOTE | 2019-03-12 12:14 | PDOC ---
History of Present Illness - General Chief Complaint: Shortness of Breath Stated Complaint: Shortness of Breath Time Seen by Provider: 03/12/19 11:00 - History of Present Illness Initial Comments: 03/12/19 12:07 54-year-old female with a history of systolic heart failure (last EF 40-45%), hypertension, hypothyroidism, obesity, fibroid status post hysterectomy 6 weeks ago, asthma presents the emergency department with 1 week of progressive dyspnea on exertion, orthopnea and left-sided chest pain. The patient reports an 18 pound weight gain over the last 2 weeks despite taking Lasix 80 mg twice a day. She reports lower extremity swelling and states that she needs to sleep on 7 pillows at night in order to be able to breathe. She reports reports decreased exercise tolerance to walking across the room. Chest pain is constant and not triggered by anything. At times has numbness radiating to L arm and up to L jaw. States Jaw feels "tight." CP is not pleuritic. States this morning, she became lightheaded and felt like she was going to pass out while showering prompting ED visit. Denies fall or LOC. Patient had a hysterectomy 6 weeks ago for fibroids. Takes baby aspirin daily. Denies fevers, chills. Denies headache, focal weakness or numbness. Denies abdominal pain, nausea, vomiting or diarrhea. Denies urinary symptoms, immobility. PMD; Dr. Urbina Cards: Dr Peters Past History - Past Medical History Allergies/Adverse Reactions: Allergies Allergy/AdvReac Type Severity Reaction Status Date / Time No Known Allergies Allergy Verified 03/12/19 09:49 Home Medications: Ambulatory Orders Aspirin [Aspirin EC] 81 mg PO DAILY 11/12/18 Ergocalciferol (Vitamin D2) [Vitamin D2] 50,000 unit PO WEEKLY 11/12/18 Ferrous Sulfate 325 mg PO BID 11/12/18 Levothyroxine [Synthroid -] 25 mcg PO DAILY 11/12/18 Pantoprazole Sodium [Protonix -] 20 mg PO DAILY 11/12/18 Albuterol Sulfate Inhaler - [Ventolin HFA Inhaler -] 1 - 2 inh PO PRN PRN Atorvastatin Ca [Lipitor] 10 mg PO DAILY 01/16/19 Carvedilol [Coreg -] 12.5 mg PO BID #30 tablet 01/18/19 Losartan Potassium 25 mg PO DAILY 01/23/19 oxyCODONE HCL [Roxicodone -] 5 mg PO Q4H PRN #12 tablet MDD 6 01/28/19 Furosemide 40 mg PO DAILY #60 tablet 02/02/19 Anemia: Yes (iron deficiency) Asthma: Yes Cancer: No Cardiac Disorders: No CVA: No COPD: No CHF: Yes Dementia: No Diabetes: No GI Disorders: No Disorders: No HTN: Yes Hypercholesterolemia: Yes Liver Disease: No Seizures: No Thyroid Disease: Yes (hypo) - Surgical History Abdominal Surgery: No Appendectomy: No Cardiac Surgery: No Cholecystectomy: No Lung Surgery: No Neurologic Surgery: No Orthopedic Surgery: No - Immunization History Immunization Up to Date: Yes - Suicide/Smoking/Psychosocial Hx Smoking Status: No Smoking History: Never smoked Have you smoked in the past 12 months: No Number of Cigarettes Smoked Daily: 2 If you are a former smoker, when did you quit?: 2000 Information on smoking cessation initiated: No Hx Alcohol Use: No Drug/Substance Use Hx: No Substance Use Type: None Hx Substance Use Treatment: No Review of Systems - Review of Systems Comments:: 03/12/19 12:12 GENERAL/CONSTITUTIONAL: No fever or chills. No weakness. HEAD, EYES, EARS, NOSE AND THROAT: No change in vision. No ear pain or discharge. No sore throat. GASTROINTESTINAL: No nausea, vomiting, diarrhea or constipation. GENITOURINARY: No dysuria, frequency, or change in urination. CARDIOVASCULAR: +chest pain + shortness of breath. RESPIRATORY: No cough, wheezing, or hemoptysis. MUSCULOSKELETAL: No joint or muscle swelling or pain. No neck or back pain. SKIN: No rash NEUROLOGIC: No headache, vertigo, loss of consciousness, or change in strength. +numbness radiating to L arm and L jaw ENDOCRINE: No increased thirst. No abnormal weight change. HEMATOLOGIC/LYMPHATIC: No anemia, easy bleeding, or history of blood clots. ALLERGIC/IMMUNOLOGIC: No hives or skin allergy. *Physical Exam - Vital Signs Last Vital Signs Temp Pulse Resp BP Pulse Ox 97.9 F 54 L 24 H 150/76 100 03/12/19 09:35 03/12/19 11:54 03/12/19 11:54 03/12/19 11:54 03/12/19 11:56 - Physical Exam Comments: 03/12/19 12:14 GENERAL: Awake, alert, and fully oriented, in no acute distress speaking in 4-5 word sentences HEAD: No signs of trauma EYES: PERRLA, EOMI, sclera anicteric, conjunctiva clear ENT: oropharynx clear without exudates. Moist mucosa NECK: Normal ROM, supple, no lymphadenopathy, JVD, or masses LUNGS: Breath sounds equal, clear to auscultation bilaterally. No wheezes, and no crackles HEART: Regular rate and rhythm, normal S1 and S2, no murmurs, rubs or gallops ABDOMEN: Soft, nontender, normoactive bowel sounds. No guarding, no rebound. No masses EXTREMITIES: Normal range of motion, 1+ pitting edema to knees symmetric b/l. No cords, erythema, or tenderness NEUROLOGICAL: Normal speech, cranial nerves intact, equal strength and sensation b/l SKIN: Warm, Dry, normal turgor, no rashes or lesions noted. Heart Score/ECG Review #1 03/12/19 12:15 Twelve-lead EKG was performed and reviewed by me. Sinus bradycardia, rate 54. Normal axis and intervals. No ST elevations or T-wave inversions. ED Treatment Course - LABORATORY CBC & Chemistry Diagram: 03/12/19 12:38 03/12/19 11:46 - RADIOLOGY Radiology Studies Ordered: Category Date Time Status CHEST X-RAY PORTABLE* [RAD] Stat Radiology 03/12/19 11:47 Taken Medical Decision Making - Medical Decision Making 03/12/19 12:16 54yo F with MMP including CHF, HTN, HL presents to the ED with NAVAS, orthopnea, LE edema, CP Vitals wnl EKG with no ischemic changes DDx includes CHF exacerbation vs PE vs ACS vs PNA Pt had hysterectomy 6 weeks ago, in [facility] Plan for dimer, labs, monitoring, XR, anticipate admission 03/12/19 16:08 Labs with elevated BNP consistent with CHF exacerbation Pt given lasix 40mg IV Dimer positive, CTA negative for PE Pt with persistent SOB after CTA, improved with atrovent Case discussed with Dr. Vaz, pt accepted for admission Case discussed in detail with admitting physician including history, physical exam and ancillary studies. Admitting physician has assumed care for the patient, will follow all pending diagnostics and will complete the evaluation and treatment. *DC/Admit/Observation/Transfer Diagnosis at time of Disposition: Shortness of breath CHF (congestive heart failure) Qualifiers: Heart failure type: unspecified Heart failure chronicity: acute on chronic Qualified Code(s): I50.9 - Heart failure, unspecified - Discharge Dispostion Condition at time of disposition: Stable Decision to Admit order: Yes - Referrals Referrals: Delia Urbina MD [Primary Care Provider] - - Patient Instructions - Post Discharge Activity - Attestations Physician Attestion: 03/12/19 16:29 I, Dr. Nasrin Watson MD, attest that this document has been prepared under my direction and personally reviewed by me in its entirety. I further attest, that it accurately reflects all work, treatment, procedures and medical decision -making performed by me.
[2019-03-12 12:55] LABS: BASO % 0.4 % (0-2.0); EOS % 3.7 % (0-4.5); HEMATOCRIT 28.1 % (32.4-45.2); HEMOGLOBIN 9.1 GM/dL (10.7-15.3); LYMPH % 21.1 % (8-40); MCH 29.2 pg (25.7-33.7); MCHC 32.4 g/dl (32.0-36.0); MEAN CELL VOLUME 90.2 fl (80-96); MEAN PLT VOLUME 8.2 fl (7.5-11.1); MONO % 6.9 % (3.8-10.2); NEUT % 67.9 % (42.8-82.8); PLATELET COUNT 233 K/MM3 (134-434); RBC 3.11 M/mm3 (3.60-5.2); RDW 14.2 % (11.6-15.6); WHITE BLOOD COUNT 6.9 K/mm3 (4.0-10.0)
[2019-03-12 13:09] LABS: INR 0.97 (0.83-1.09); PROTHROMBIN TIME (PATIENT) 11.4 SEC (9.7-13.0)
[2019-03-12 13:11] LABS: ACTIVATED PTT 31.6 SECONDS (25.2-36.5)
[2019-03-12 13:25] LABS: ALK PHOS 67 U/L (45-117); ANION GAP 4 MMOL/L (8-16); BILIRUBIN,TOTAL 0.2 mg/dL (0.2-1); BLOOD UREA NITROGEN 15 mg/dL (7-18); CALCIUM 9.1 mg/dL (8.5-10.1); CHLORIDE 112 mmol/L (98-107); CO2 27 mmol/L (21-32); CREATININE 0.8 mg/dL (0.55-1.3); GLUCOSE,RANDOM 87 mg/dL (74-106); N-TERMINAL BNP 1606.7 pg/ml (5-125); POTASSIUM 3.6 mmol/L (3.5-5.1); SGOT/AST 12 U/L (15-37); SGPT/ALT 19 U/L (13-61); SODIUM 143 mmol/L (136-145); TOT PROT 6.4 g/dl (6.4-8.2)
[2019-03-12] MEDS ORDERED: FUROSEMIDE 40 MG/4 ML INJECTABLE VIAL IVPUSH ONE ×2 (13:46→17:32)
[2019-03-12] MEDS ORDERED: FUROSEMIDE 40 MG/4 ML INJECTABLE VIAL ONE (14:45)
[2019-03-12] MEDS ORDERED: IPRATROPIUM BR 0.02% 0.5 MG/2.5 ML VIAL.NEB. NEB ONE (14:57)
--- NOTE | 2019-03-12 16:24 | HP ---
CHIEF COMPLAINT: "im short of breath" HISTORY OF PRESENT ILLNESS: This is a 54yo F with PMH of HFREF idiopathic dilated cardiomyopathy , prior negative cath at [facility] (last EF 40-45%), HTN, hypothyroidism, obesity, fibroid status post hysterectomy 6 weeks ago, asthma, anxiety, who presents with sob and chest pressure. she reports sob, increased b/l LE edema, appetite loss and 18 lb weight gain since mon. additionally increased orthopnea and chest pressure since yesterday. states symptoms have not improved despite increasing her lasix to 80 bid,. reports compliance with home meds. denies recent f/c, uri , dysuria, abd pain n/v/d. reports some vague muscle cramping in L neck. denies historyof heavy drinking, + past cocaine use, mild, many years ago. in family 2 weeks ago ER course was notable for: (1)lasix 40 iv (2)cxr (3)cta Recent Travel: denies PAST MEDICAL HISTORY: as above PAST SURGICAL HISTORY: as above Social History: Smoking: denies Alcohol:denies Drugs: denies Family History: father cad, chf Allergies No Known Allergies Allergy (Verified 03/12/19 09:49) HOME MEDICATIONS: Home Medications Medication Instructions Recorded Aspirin [Aspirin EC] 81 mg PO DAILY 11/12/18 Ergocalciferol (Vitamin D2) 50,000 unit PO WEEKLY 11/12/18 [Vitamin D2] Ferrous Sulfate 325 mg PO BID 11/12/18 Levothyroxine [Synthroid -] 25 mcg PO DAILY 11/12/18 Pantoprazole Sodium [Protonix -] 20 mg PO DAILY 11/12/18 Albuterol Sulfate Inhaler - 1 - 2 inh PO PRN PRN 01/16/19 [Ventolin HFA Inhaler -] Atorvastatin Ca [Lipitor] 10 mg PO DAILY 01/16/19 Carvedilol [Coreg -] 12.5 mg PO BID #30 tablet 01/18/19 Losartan Potassium 25 mg PO DAILY 01/23/19 oxyCODONE HCL [Roxicodone -] 5 mg PO Q4H PRN #12 tablet MDD 6 01/28/19 Furosemide 40 mg PO DAILY #60 tablet 02/02/19 REVIEW OF SYSTEMS CONSTITUTIONAL: Absent: fever, chills HEENT: Absent: rhinorrhea, nasal congestion, throat pain CARDIOVASCULAR: Absent: syncope, palpitations, irregular heart rate, lightheadedness RESPIRATORY: Absent:hemoptysis GASTROINTESTINAL: Absent: abdominal pain, abdominal distension, nausea, vomiting, diarrhea, constipation, melena, hematochezia GENITOURINARY: Absent: dysuria MUSCULOSKELETAL: Absent: myalgia, arthralgia SKIN: Absent: rash, itching, pallor HEMATOLOGIC/IMMUNOLOGIC: Absent: easy bleeding, easy bruising ENDOCRINE: Absent: heat intolerance, cold intolerance NEUROLOGIC: Absent: headache, focal weakness or paresthesias PSYCHIATRIC: Absent: anxiety, depression PHYSICAL EXAMINATION Vital Signs - 24 hr 03/12/19 03/12/19 03/12/19 09:35 11:54 11:56 Temperature 97.9 F Pulse Rate 56 L Pulse Rate [ 54 L Apical] Respiratory 16 24 H Rate Blood Pressure 139/78 Blood Pressure 150/76 [Right Arm] O2 Sat by Pulse 99 99 100 Oximetry (%) 03/12/19 15:00 Temperature Pulse Rate Pulse Rate [ 66 Apical] Respiratory 14 Rate Blood Pressure Blood Pressure 165/99 [Right Arm] O2 Sat by Pulse 100 Oximetry (%) GENERAL: Awake, alert, and fully oriented, in no acute distress. HEAD: Normal with no signs of trauma. EYES: Pupils equal, round and reactive to light, extraocular movements intact, sclera anicteric, conjunctiva clear. No lid lag. EARS, NOSE, THROAT: Moist mucous membranes. NECK: supple without JVD LUNGS: Breath sounds equal, clear to auscultation bilaterally HEART: Regular rate and rhythm, normal S1 and S2 ABDOMEN: Soft, nontender, not distended, normoactive bowel sounds, no guarding, no rebound, no masses. MUSCULOSKELETAL: No CVA tenderness. UPPER EXTREMITIES: LOWER EXTREMITIES: 2+ pulses, warm, well-perfused. No calf tenderness. trace peripheral edema. NEUROLOGICAL: Cranial nerves II-XII grossly intact. Normal speech. PSYCHIATRIC: Cooperative. Good eye contact. Appropriate mood and affect. SKIN: Warm, dry Laboratory Results - last 24 hr 03/12/19 03/12/19 03/12/19 11:46 11:46 12:38 WBC RBC Hgb Hct MCV MCH MCHC RDW Plt Count MPV Absolute Neuts (auto) Neutrophils % Lymphocytes % Monocytes % Eosinophils % Basophils % Nucleated RBC % PT with INR INR PTT (Actin FS) D-Dimer 841 H Sodium 143 Potassium 3.6 Chloride 112 H Carbon Dioxide 27 Anion Gap 4 L BUN 15 Creatinine 0.8 Est GFR (CKD-EPI)AfAm 98.24 Est GFR (CKD-EPI)NonAf 84.76 Random Glucose 87 Calcium 9.1 Magnesium 2.0 Total Bilirubin 0.2 AST 12 L ALT 19 Alkaline Phosphatase 67 Creatine Kinase 60 Troponin I < 0.02 B-Natriuretic Peptide 1606.7 H Total Protein 6.4 Albumin 3.0 L 03/12/19 03/12/19 12:38 12:38 WBC 6.9 RBC 3.11 L Hgb 9.1 L Hct 28.1 L MCV 90.2 MCH 29.2 MCHC 32.4 RDW 14.2 Plt Count 233 MPV 8.2 Absolute Neuts (auto) 4.7 Neutrophils % 67.9 Lymphocytes % 21.1 Monocytes % 6.9 Eosinophils % 3.7 Basophils % 0.4 Nucleated RBC % 0 PT with INR 11.40 INR 0.97 PTT (Actin FS) 31.6 D-Dimer Sodium Potassium Chloride Carbon Dioxide Anion Gap BUN Creatinine Est GFR (CKD-EPI)AfAm Est GFR (CKD-EPI)NonAf Random Glucose Calcium Magnesium Total Bilirubin AST ALT Alkaline Phosphatase Creatine Kinase Troponin I B-Natriuretic Peptide Total Protein Albumin ASSESSMENT/PLAN: This is a 54yo F with PMH of HFREF idiopathic dilated cardiomyopathy , prior negative cath at [place] (last EF 40-45%), HTN, hypothyroidism, obesity, fibroid status post hysterectomy 6 weeks ago, asthma, anxiety, who presents with sob and chest pressure. acute on chronic chf exacerbation idiopathic dilated cardiomyopathy with ref htn hypothyroidism obesity anxiety normocytic anemia -chrt mild increase in cephalization. -BNP 1606 slightly above baseline -trop negative x 1 get 2nd -ekg no evidence of acs or strain -recent tte appreciated -clinically does not appear severly overloaded, voiced complaints out of proportion to exam -diurese lasix 80 iv -cardio consult -continue arb, asa, statin -would benefit from switching to entresto and up titrating dose (BP suboptimally controlled for chf, goal < 110 systolic) -would eventually add aldactone since still symptomatic -cardiac monitoring -would benefit from outpatient event monitor or loop recorder to r/o arrhythmia that could have precipitated chf -would benefit from outpatient CMR to r/o infiltrative causes -f/u tfts. lipid, a1c, Cu. -replete lytes -stric i and o daily weights -anemia workup Problem List - Problem (1) CHF exacerbation Code(s): I50.9 - HEART FAILURE, UNSPECIFIED (2) Dilated cardiomyopathy Code(s): I42.0 - DILATED CARDIOMYOPATHY (3) Anxiety Code(s): F41.9 - ANXIETY DISORDER, UNSPECIFIED (4) CHF (congestive heart failure) Code(s): I50.9 - HEART FAILURE, UNSPECIFIED Qualifiers: Heart failure type: unspecified Heart failure chronicity: acute on chronic Qualified Code(s): I50.9 - Heart failure, unspecified (5) Shortness of breath Code(s): R06.02 - SHORTNESS OF BREATH (6) Chest pain Code(s): R07.9 - CHEST PAIN, UNSPECIFIED (7) Asthma Code(s): J45.909 - UNSPECIFIED ASTHMA, UNCOMPLICATED Qualifiers: Asthma severity: moderate persistent Asthma complication type: with acute exacerbation Qualified Code(s): J45.41 - Moderate persistent asthma with ( acute) exacerbation (8) Hypertension Code(s): I10 - ESSENTIAL (PRIMARY) HYPERTENSION Qualifiers: Hypertension type: essential hypertension Qualified Code(s): I10 - Essential (primary) hypertension Visit type - Emergency Visit Emergency Visit: Yes ED Registration Date: 03/12/19 Care time: The patient presented to the Emergency Department on the above date and was hospitalized for further evaluation of their emergent condition. - New Patient This patient is new to me today: Yes Date on this admission: 03/12/19 - Critical Care Critical Care patient: No
--- NOTE | 2019-03-12 17:39 | PN ---
Teaching Attending Note Name of Resident: Clara Monsivais ATTENDING PHYSICIAN STATEMENT I saw and evaluated the patient. I reviewed the resident's note and discussed the case with the resident. I agree with the resident's findings and plan as documented with exceptions below. SUBJECTIVE: 53 yof with PMHx of HTN, hypothyroidism, asthma, obesity, nonischemic cardiomyopathy, chronic systolic HF (last Echo 11/2018 EF 40-45%), cath 08/2018 with non obstructive dz, dizziness/syncope in 11/2018 felt from vasovagal/over diuresis, recurrent admissions, with GERARD/anemia, then recently in 01/2019 with CHF when d/jennifer after short stay with IV lasix, comes back with progressive dyspnea, orthopnea, PND, facial puffiness and weight gain 215 lbs from reported 199 lbs 2 days ago. Was seen by PCP on Saturday, reportedly lasix increased from 40 mg BID to 80 mg BID, but given progressive symptoms, came to the ED. Also had some left shoulder/neck pain/headache and left jaw numbness on her PCP visit, prescribed muscle relaxant ?cyclobenzaprine with some relief. 12 point ROS done, denies any dietary or medication non compliance. No palpitations, chest pain, or other concerns. Does report 'anxiety attacks'. OBJECTIVE: Vital Signs Period Temp Pulse Resp BP Sys/Sigala Pulse Ox Last 24 Hr 97.9 F 54-66 14-24 139-165/76-99 99-100 Intake & Output 03/09/19 03/10/19 03/11/19 03/12/19 23:59 23:59 23:59 23:59 Weight 215 lb GENERAL: Awake, alert, and fully oriented, in no acute distress. HEAD: Normal with no signs of trauma. EYES: Pupils equal, round and reactive to light, extraocular movements intact, sclera anicteric, conjunctiva clear. No lid lag. EARS, NOSE, THROAT: Ears normal, nares patent, oropharynx clear without exudates. Moist mucous membranes. NECK: Normal range of motion, supple, no JVD visualized LUNGS: Breath sounds equal, clear to auscultation bilaterally. No wheezes, and no crackles. No accessory muscle use. HEART: Regular rate and rhythm, normal S1 and S2 ABDOMEN: Soft, obese, NT throughout, no voluntary or involuntary guarding or rigidity MUSCULOSKELETAL: Normal range of motion at all joints. No bony deformities or tenderness. No CVA tenderness. UPPER EXTREMITIES: 2+ pulses, warm, well-perfused. No cyanosis. No clubbing. No peripheral edema. LOWER EXTREMITIES: 2+ pulses, warm, well-perfused. No calf tenderness. Trace pedal edema NEUROLOGICAL: AAOx3, Cranial nerves II-XII intact. Normal speech. Gait not observed PSYCHIATRIC: Cooperative. Good eye contact. Appropriate mood and affect. SKIN: Warm, dry, normal turgor, no rashes or lesions noted, normal capillary refill. Home Medications Medication Instructions Recorded Aspirin [Aspirin EC] 81 mg PO DAILY 11/12/18 Ergocalciferol (Vitamin D2) 50,000 unit PO WEEKLY 11/12/18 [Vitamin D2] Ferrous Sulfate 325 mg PO BID 11/12/18 Levothyroxine [Synthroid -] 25 mcg PO DAILY 11/12/18 Pantoprazole Sodium [Protonix -] 20 mg PO DAILY 11/12/18 Albuterol Sulfate Inhaler - 1 - 2 inh PO PRN PRN 01/16/19 [Ventolin HFA Inhaler -] Atorvastatin Ca [Lipitor] 10 mg PO DAILY 01/16/19 Carvedilol [Coreg -] 12.5 mg PO BID #30 tablet 01/18/19 Losartan Potassium 25 mg PO DAILY 01/23/19 oxyCODONE HCL [Roxicodone -] 5 mg PO Q4H PRN #12 tablet MDD 6 01/28/19 Furosemide 40 mg PO DAILY #60 tablet 02/02/19 Active Medications Enoxaparin Sodium (Lovenox -) 40 mg SQ DAILY [facility] Furosemide (Lasix Injection -) 40 mg IVPUSH ONCE ONE Stop: 03/12/19 17:33 Last Admin: 03/12/19 17:35 Dose: 40 mg Furosemide (Lasix Injection -) 80 mg IVPB DAILY [facility] Laboratory Results - last 24 hr 03/12/19 03/12/19 03/12/19 11:46 11:46 12:38 WBC RBC Hgb Hct MCV MCH MCHC RDW Plt Count MPV Absolute Neuts (auto) Neutrophils % Lymphocytes % Monocytes % Eosinophils % Basophils % Nucleated RBC % PT with INR INR PTT (Actin FS) D-Dimer 841 H Sodium 143 Potassium 3.6 Chloride 112 H Carbon Dioxide 27 Anion Gap 4 L BUN 15 Creatinine 0.8 Est GFR (CKD-EPI)AfAm 98.24 Est GFR (CKD-EPI)NonAf 84.76 Random Glucose 87 Calcium 9.1 Magnesium 2.0 Total Bilirubin 0.2 AST 12 L ALT 19 Alkaline Phosphatase 67 Creatine Kinase 60 Troponin I < 0.02 B-Natriuretic Peptide 1606.7 H Total Protein 6.4 Albumin 3.0 L 03/12/19 03/12/19 12:38 12:38 WBC 6.9 RBC 3.11 L Hgb 9.1 L Hct 28.1 L MCV 90.2 MCH 29.2 MCHC 32.4 RDW 14.2 Plt Count 233 MPV 8.2 Absolute Neuts (auto) 4.7 Neutrophils % 67.9 Lymphocytes % 21.1 Monocytes % 6.9 Eosinophils % 3.7 Basophils % 0.4 Nucleated RBC % 0 PT with INR 11.40 INR 0.97 PTT (Actin FS) 31.6 D-Dimer Sodium Potassium Chloride Carbon Dioxide Anion Gap BUN Creatinine Est GFR (CKD-EPI)AfAm Est GFR (CKD-EPI)NonAf Random Glucose Calcium Magnesium Total Bilirubin AST ALT Alkaline Phosphatase Creatine Kinase Troponin I B-Natriuretic Peptide Total Protein Albumin CXr and CT chest results reviewed EKG sinus bradycardia 54, no acute ST-T changes ASSESSMENT AND PLAN: 53 yof with PMHx of HTN, hypothyroidism, asthma, obesity, nonischemic cardiomyopathy, chronic systolic HF (last Echo 11/2018 EF 40-45%), cath 08/2018 with non obstructive dz, dizziness/syncope in 11/2018 felt from vasovagal/over diuresis, recurrent admissions, with GERARD/anemia, then recently in 01/2019 with CHF when d/jennifer after short stay with IV lasix, admitted with acute CHF -Acute on chronic systolic heart failure exacerbation -Non ischemic cardiomyopathy -Chronic systolic HF (Last Echo 11/2018 EF 40-45%), cath 08/2018 with non obstructive dz -Left shoulder/neck pain, suspect musculoskeletal, unlikely ACS -Recent lap hysterectomy/BSO/cystectomy 01/26/2019 -HTN -Hypothyroidism -Asthma -Obesity Plan: Lasix 80 mg IV daily as tolerated, strict I/os, daily weights. Failure to respond to 80 mg BID per patient, may need to increase 80 mg IV bid as needed. NO clear precipitating factors, reporting variable doses of lasix. Cardiology consult. CHF education. Telemetry, repeat trop. Continue ASA/statin/coreg/Losartan/levothyroxine Pain control tylenol/flexeril. Dispo dc in 48 hours if volume status imprvoes and no new concerns. Plan discussed with patient in detail, all questions answered. Total admit time spent 65 min.
[2019-03-12] MEDS ORDERED: ALBUTEROL SO4 8 GM HFA INHALER IH PRN (18:12)
[2019-03-12] MEDS ORDERED: ACETAMINOPHEN 325 MG TABLET (FP) PO ONE (19:26)
[2019-03-12] MEDS: RANITIDINE HCL 150 MG TABLET (FP) PO SCH (19:35)
[2019-03-12] MEDS ORDERED: PT OWN MED DRAWER 7, Y5N ONE (21:05)
[2019-03-12] MEDS: CARVEDILOL 12.5 MG TABLET (FP) PO SCH (21:19)
[2019-03-12] MEDS: CYCLOBENZAPRINE HCL 10 MG TABLET (FP) PO SCH (21:19)
[2019-03-13] MEDS: LEVOTHYROXINE NA 25 MCG TABLET (FP) PO SCH (06:20)
[2019-03-13 07:50] LABS: BASO % 0.5 % (0-2.0); EOS % 3.6 % (0-4.5); HEMATOCRIT 28.8 % (32.4-45.2); HEMOGLOBIN 9.6 GM/dL (10.7-15.3); LYMPH % 24.6 % (8-40); MCH 29.8 pg (25.7-33.7); MCHC 33.5 g/dl (32.0-36.0); MEAN PLT VOLUME 8.4 fl (7.5-11.1); MONO % 6.4 % (3.8-10.2); NEUT % 64.9 % (42.8-82.8); RBC 3.24 M/mm3 (3.60-5.2); RDW 14.5 % (11.6-15.6); WHITE BLOOD COUNT 5.8 K/mm3 (4.0-10.0)
[2019-03-13 09:14] LABS: BILIRUBIN,TOTAL 0.4 mg/dL (0.2-1); CALCIUM 8.9 mg/dL (8.5-10.1); CREATININE 0.9 mg/dL (0.55-1.3); MAGNESIUM 1.9 mg/dL (1.8-2.4); PHOSPHOROUS 3.6 mg/dL (2.5-4.9); POTASSIUM 3.1 mmol/L (3.5-5.1); TOT PROT 6.6 g/dl (6.4-8.2)
[2019-03-13 09:15] LABS: URINE APPEARANCE CLEAR; URINE BILIRUBIN NEGATIVE (NEGATIVE); URINE COLOR YELLOW; URINE GLUCOSE (UA) NEGATIVE (NEGATIVE); URINE KETONE NEGATIVE (NEGATIVE); URINE LEUK ESTERASE NEGATIVE (NEGATIVE); URINE NITRITE NEGATIVE (NEGATIVE); URINE PROTEIN NEGATIVE (NEGATIVE); URINE UROBILINOGEN 0.2 mg/dL (0.2-1.0)
[2019-03-13] MEDS: ASPIRIN COATED 81 MG TABLET.EC PO SCH (09:16)
[2019-03-13] MEDS: ENOXAPARIN NA (PORCINE) 40 MG/0.4 ML DISP.SYRIN SQ SCH (09:16)
[2019-03-13] MEDS: PANTOPRAZOLE 20 MG TABLET (FP) PO SCH (09:16)
[2019-03-13] MEDS: FUROSEMIDE 40 MG/4 ML INJECTABLE VIAL IVPB SCH (09:16)
[2019-03-13] MEDS: LOSARTAN POTASSIUM 25 MG TABLET PO SCH (09:16)
[2019-03-13] MEDS: RANITIDINE HCL 150 MG TABLET (FP) PO SCH (09:16)
[2019-03-13] MEDS: CARVEDILOL 12.5 MG TABLET (FP) PO SCH ×2 (09:16→21:12)
--- NOTE | 2019-03-13 09:58 | CON.CARD ---
Consult Consult Specialty:: Cardiology Referred by:: Dr. Vaz Reason for Consultation:: CHF - History of Present Illness Chief Complaint: SOB, edema History of Present Illness: This is a 54yo F with PMH of HFREF idiopathic dilated cardiomyopathy , prior negative cath at [place] (last EF 40-45%), HTN, hypothyroidism, obesity, fibroid status post hysterectomy 6 weeks ago, asthma, anxiety, who presents with sob and chest pressure. she reports sob, increased b/l LE edema, appetite loss and 18 lb weight gain since mon. additionally increased orthopnea and chest pressure since yesterday. states symptoms have not improved despite increasing her lasix to 80 bid,. reports compliance with home meds. denies recent f/c, uri , dysuria, abd pain n/v/d. reports some vague muscle cramping in L neck. denies historyof heavy drinking, + past cocaine use, mild, many years ago. in family 2 weeks ago Reports recently buying and eating packaged Crab dinners- likely high sodium content. Began experiencing sx shortly thereafter. Now improved after IV Lasix - History Source History Provided By: Patient - Past Medical History Cardio/Vascular: Yes: CHF, HTN Pulmonary: Yes: Asthma Gastrointestinal: Yes: Ulcerative Colitis Renal/: Yes: Renal Inusuff ...LMP: 01/09/19 - Past Surgical History Past Surgical History: Yes: Tubal Ligation - Alcohol/Substance Use Hx Alcohol Use: No History of Substance Use: reports: None - Smoking History Smoking history: Former smoker Have you smoked in the past 12 months: No Aproximately how many cigarettes per day: 2 If you are a former smoker, when did you quit?: 2000 - Social History ADL: Independent History of Recent Travel: No Home Medications - Allergies Allergies/Adverse Reactions: Allergies Allergy/AdvReac Type Severity Reaction Status Date / Time No Known Allergies Allergy Verified 03/12/19 09:49 - Home Medications Home Medications: Ambulatory Orders Aspirin [Aspirin EC] 81 mg PO DAILY 11/12/18 Ergocalciferol (Vitamin D2) [Vitamin D2] 50,000 unit PO WEEKLY 11/12/18 Ferrous Sulfate 325 mg PO BID 11/12/18 Levothyroxine [Synthroid -] 25 mcg PO DAILY 11/12/18 Pantoprazole Sodium [Protonix -] 20 mg PO DAILY 11/12/18 Albuterol Sulfate Inhaler - [Ventolin HFA Inhaler -] 1 - 2 inh PO PRN PRN Atorvastatin Ca [Lipitor] 10 mg PO DAILY 01/16/19 Carvedilol [Coreg -] 12.5 mg PO BID #30 tablet 01/18/19 Losartan Potassium 25 mg PO DAILY 01/23/19 Cyclobenzaprine HCl [Flexeril 10 mg] 10 mg PO HS 03/12/19 Furosemide [Lasix] 40 mg PO BID 03/12/19 Ranitidine HCl 300 mg PO HS 03/12/19 Family Disease History - Family Disease History Family Disease History: Diabetes: Mother, Heart Disease: Father (renal failure) , Other: Father Review of Systems - Review of Systems Constitutional: reports: No Symptoms Eyes: reports: No Symptoms HENT: reports: No Symptoms Cardiovascular: reports: Edema, Shortness of Breath Respiratory: reports: Exercise Intolerance, SOB on Exertion Gastrointestinal: denies: No Symptoms, Abdominal Pain, Bloating, Constipation, Diarrhea, Dysphagia, Indigestion, Melena, Nausea, Rectal Bleeding, Vomiting, Vomiting Blood, Other Genitourinary: denies: No Symptoms, Burning, Discharge, Dysuria, Flank Pain, Frequency, Hematuria, Incontinence, Lesions, Menses, Pain, Testicular Mass, Testicular Pain, Testicular Swelling, Urgency, Vaginal Bleeding, Other Breasts: denies: No Symptoms Reported, See HPI, Breast Implants, Discharge from Nipple, Lumps, Pain, Skin Changes, Other Musculoskeletal: denies: No Symptoms, Back Pain, Crepitus, Decreased ROM, Extremity Pain, Joint Pain, Joint Swelling, Muscle Pain, Muscle Cramps, Muscle Weakness, Other Integumentary: denies: No Symptoms, Blister, Bruising, Change in Color, Eczema, Erythema, Incision, Lesions, Lump, Pallor, Pruritis, Rash, Wound, Other Neurological: denies: No Symptoms, Change in LOC, Change in Speech, Confusion, Dizziness, Headache, Incoordination, Numbness, Parasthesia, Pre-Existing Deficit , Seizure, Syncope, Tremors, Unsteady Gait, Weakness, Other Endocrine: denies: No Symptoms, Excessive Sweating, Flushing, Increased Hunger, Increased Thirst, Intolerance to Cold, Intolerance to Heat, Unexplained Weight Gain, Unexplained Weight Loss, Other Hematology/Lymphatic: denies: No Symptoms, Easily Bruised, Excessive Bleeding, Swollen Glands, Other Psychiatric: denies: No Symptoms, Altered Sleep Pattern, Anxiety, Depression, Hallucinations, Panic, Paranoia, Suicidal, Other - Risk Factors Known Risk Factors: Yes: Hypertension Vital Signs: Vital Signs Temperature 97.8 F 03/13/19 06:00 Pulse Rate 64 03/13/19 06:00 Respiratory Rate 20 03/13/19 07:00 Blood Pressure 129/75 03/13/19 06:00 O2 Sat by Pulse Oximetry (%) 97 03/13/19 07:00 Constitutional: Yes: No Distress, Calm Eyes: Yes: Conjunctiva Clear Respiratory: Yes: CTA Bilaterally Gastrointestinal: Yes: Soft, Abdomen, Obese Cardiovascular: Yes: Regular Rate and Rhythm JVD: No Carotid Bruit: No PMI: Non-Displaced Heart Sounds: Yes: S1, S2 (rrr) Edema: No Neurological: Yes: Alert, Oriented ...Motor Strength: WNL - Other Data Labs, Other Data: CBC, BMP 03/13/19 06:15 03/13/19 06:15 INR, PTT INR 0.97 (0.83-1.09) 03/12/19 12:38 Troponin, BNP 03/12/19 03/12/19 11:46 19:25 Troponin I < 0.02 0.02 B-Natriuretic Peptide 1606.7 H Troponin, BNP 03/12/19 03/12/19 11:46 19:25 Troponin I < 0.02 0.02 B-Natriuretic Peptide 1606.7 H sinus whitney 54, no acute changes Echo: Pending, Report Reviewed, Image Reviewed Prior Cardiac Procedures: Cardiac Catheterization Imaging - Results Chest X-ray: Report Reviewed Cat Scan: Report Reviewed (no PE) Assessment/Plan IMP: 1. Acute on chronic systolic CHF, possibly precipitated by dietary indiscretion (Crab dinners) 2. NICM 3. Obesity REC: 1. IV Lasix today, swithc PO in AM 2. Replete K, Mg 3. Daily weights 4. Cont usual GDMT for chronic systolic CHF 5. May benefit from enrolling in [facility]F care management program as outpatient. Will follow
--- NOTE | 2019-03-13 10:46 | PN ---
Physical Exam: SUBJECTIVE: Patient seen and examined, breathing improved, no new complaints. OBJECTIVE: Vital Signs Period Temp Pulse Resp BP Sys/Sigala Pulse Ox Last 24 Hr 97.8 F-98.3 F 54-78 14-24 118-165/75-99 97-100 Intake & Output 03/10/19 03/11/19 03/12/19 03/13/19 23:59 23:59 23:59 23:59 Intake Total 120 Output Total 1 Balance 120 -1 Weight 215 lb GENERAL: sitting in bed in no acute distress necK; soft, supple, no JVD visualized Chest: distant air entry all over, no rales or wheezing appreciated Abdomen:Soft, obese, NT Extremities: trace pedal edema Psych: anxious, appropriate Laboratory Results - last 24 hr 03/12/19 03/12/19 03/12/19 11:46 11:46 12:38 WBC RBC Hgb Hct MCV MCH MCHC RDW Plt Count MPV Absolute Neuts (auto) Neutrophils % Lymphocytes % Monocytes % Eosinophils % Basophils % Nucleated RBC % Retic Count PT with INR INR PTT (Actin FS) D-Dimer 841 H Sodium 143 Potassium 3.6 Chloride 112 H Carbon Dioxide 27 Anion Gap 4 L BUN 15 Creatinine 0.8 Est GFR (CKD-EPI)AfAm 98.24 Est GFR (CKD-EPI)NonAf 84.76 Random Glucose 87 Hemoglobin A1c % Calcium 9.1 Phosphorus Magnesium 2.0 Ferritin Total Bilirubin 0.2 AST 12 L ALT 19 Alkaline Phosphatase 67 Creatine Kinase 60 Troponin I < 0.02 B-Natriuretic Peptide 1606.7 H Total Protein 6.4 Albumin 3.0 L Triglycerides Cholesterol Total LDL Cholesterol HDL Cholesterol Vitamin B12 TSH Free T4 Urine Color Urine Appearance Urine pH Ur Specific [place] Urine Protein Urine Glucose (UA) Urine Ketones Urine Blood Urine Nitrite Urine Bilirubin Urine Urobilinogen Ur Leukocyte Esterase 03/12/19 03/12/19 03/12/19 12:38 12:38 19:25 WBC 6.9 RBC 3.11 L Hgb 9.1 L Hct 28.1 L MCV 90.2 MCH 29.2 MCHC 32.4 RDW 14.2 Plt Count 233 MPV 8.2 Absolute Neuts (auto) 4.7 Neutrophils % 67.9 Lymphocytes % 21.1 Monocytes % 6.9 Eosinophils % 3.7 Basophils % 0.4 Nucleated RBC % 0 Retic Count PT with INR 11.40 INR 0.97 PTT (Actin FS) 31.6 D-Dimer Sodium Potassium Chloride Carbon Dioxide Anion Gap BUN Creatinine Est GFR (CKD-EPI)AfAm Est GFR (CKD-EPI)NonAf Random Glucose Hemoglobin A1c % Calcium Phosphorus Magnesium Ferritin Total Bilirubin AST ALT Alkaline Phosphatase Creatine Kinase Troponin I 0.02 B-Natriuretic Peptide Total Protein Albumin Triglycerides Cholesterol Total LDL Cholesterol HDL Cholesterol Vitamin B12 TSH Free T4 Urine Color Urine Appearance Urine pH Ur Specific [place] Urine Protein Urine Glucose (UA) Urine Ketones Urine Blood Urine Nitrite Urine Bilirubin Urine Urobilinogen Ur Leukocyte Esterase 03/13/19 03/13/19 03/13/19 06:15 06:15 06:15 WBC 5.8 RBC 3.24 L Hgb 9.6 L Hct 28.8 L MCV 89.0 MCH 29.8 MCHC 33.5 RDW 14.5 Plt Count MPV 8.4 Absolute Neuts (auto) 3.8 Neutrophils % 64.9 Lymphocytes % 24.6 Monocytes % 6.4 Eosinophils % 3.6 Basophils % 0.5 Nucleated RBC % 0 Retic Count 1.95 H PT with INR INR PTT (Actin FS) D-Dimer Sodium 141 Potassium 3.1 L Chloride 105 Carbon Dioxide 29 Anion Gap 7 L BUN 14 Creatinine 0.9 Est GFR (CKD-EPI)AfAm 85.20 Est GFR (CKD-EPI)NonAf 73.51 Random Glucose 85 Hemoglobin A1c % Calcium 8.9 Phosphorus 3.6 Magnesium 1.9 Ferritin Total Bilirubin 0.4 AST 13 L ALT 19 Alkaline Phosphatase 73 Creatine Kinase Troponin I B-Natriuretic Peptide Total Protein 6.6 Albumin 3.0 L Triglycerides Cholesterol Total LDL Cholesterol HDL Cholesterol Vitamin B12 TSH Free T4 Urine Color Urine Appearance Urine pH Ur Specific [place] Urine Protein Urine Glucose (UA) Urine Ketones Urine Blood Urine Nitrite Urine Bilirubin Urine Urobilinogen Ur Leukocyte Esterase 03/13/19 03/13/19 03/13/19 06:15 06:15 06:15 WBC RBC Hgb Hct MCV MCH MCHC RDW Plt Count MPV Absolute Neuts (auto) Neutrophils % Lymphocytes % Monocytes % Eosinophils % Basophils % Nucleated RBC % Retic Count PT with INR INR PTT (Actin FS) D-Dimer Sodium Potassium Chloride Carbon Dioxide Anion Gap BUN Creatinine Est GFR (CKD-EPI)AfAm Est GFR (CKD-EPI)NonAf Random Glucose Hemoglobin A1c % Calcium Phosphorus Magnesium Ferritin 71.3 Total Bilirubin AST ALT Alkaline Phosphatase Creatine Kinase Troponin I B-Natriuretic Peptide Total Protein Albumin Triglycerides 167 H Cholesterol 154 Total LDL Cholesterol 87 HDL Cholesterol 47 Vitamin B12 247 TSH 3.12 Free T4 1.02 Urine Color Urine Appearance Urine pH Ur Specific [place] Urine Protein Urine Glucose (UA) Urine Ketones Urine Blood Urine Nitrite Urine Bilirubin Urine Urobilinogen Ur Leukocyte Esterase 03/13/19 03/13/19 06:15 06:30 WBC RBC Hgb Hct MCV MCH MCHC RDW Plt Count MPV Absolute Neuts (auto) Neutrophils % Lymphocytes % Monocytes % Eosinophils % Basophils % Nucleated RBC % Retic Count PT with INR INR PTT (Actin FS) D-Dimer Sodium Potassium Chloride Carbon Dioxide Anion Gap BUN Creatinine Est GFR (CKD-EPI)AfAm Est GFR (CKD-EPI)NonAf Random Glucose Hemoglobin A1c % 5.6 Calcium Phosphorus Magnesium Ferritin Total Bilirubin AST ALT Alkaline Phosphatase Creatine Kinase Troponin I B-Natriuretic Peptide Total Protein Albumin Triglycerides Cholesterol Total LDL Cholesterol HDL Cholesterol Vitamin B12 TSH Free T4 Urine Color Yellow Urine Appearance Clear Urine pH 6.0 Ur Specific [place] 1.024 Urine Protein Negative Urine Glucose (UA) Negative Urine Ketones Negative Urine Blood Negative Urine Nitrite Negative Urine Bilirubin Negative Urine Urobilinogen 0.2 Ur Leukocyte Esterase Negative Active Medications Generic Name Dose Route Start Last Admin Trade Name Freq PRN Reason Stop Dose Admin Albuterol Sulfate 1 - 2 puff 03/12/19 18:12 Ventolin Hfa Inhaler - IH Q4H PRN Dyspnea Aspirin 81 mg 03/13/19 10:00 03/13/19 09:16 Ecotrin - PO 81 mg DAILY FRANNIE Administration Atorvastatin Calcium 10 mg 03/13/19 22:00 Lipitor - PO HS FRANNIE Carvedilol 12.5 mg 03/12/19 22:00 03/13/19 09:16 Coreg - PO 12.5 mg BID FRANNIE Administration Cyclobenzaprine HCl 10 mg 03/12/19 22:00 03/12/19 21:19 Flexeril - PO 10 mg HS FRANNIE Administration Enoxaparin Sodium 40 mg 03/13/19 10:00 03/13/19 09:16 Lovenox - SQ 40 mg DAILY FRANNIE Administration Ferrous Sulfate 325 mg 03/13/19 18:30 Feosol - PO BIDWM FRANNIE Furosemide 80 mg 03/13/19 10:00 03/13/19 09:16 Lasix Injection - IVPB 80 mg DAILY FRANNIE Administration Levothyroxine Sodium 25 mcg 03/13/19 07:00 03/13/19 06:20 Synthroid - PO 25 mcg AM FRANNIE Administration Losartan Potassium 25 mg 03/13/19 10:00 03/13/19 09:16 Cozaar - PO 25 mg DAILY FRANNIE Administration Pantoprazole Sodium 20 mg 03/13/19 10:00 03/13/19 09:16 Protonix - PO 20 mg DAILY FRANNIE Administration Potassium Chloride 40 meq 03/13/19 10:45 K-Dur - PO 03/13/19 14:46 Q4H FRANNIE Ranitidine HCl 300 mg 03/12/19 18:14 03/13/19 09:16 Zantac - PO 300 mg DAILY FRANNIE Administration ASSESSMENT/PLAN: 53 yof with PMHx of HTN, hypothyroidism, asthma, obesity, nonischemic cardiomyopathy, chronic systolic HF (last Echo 11/2018 EF 40-45%), cath 08/2018 with non obstructive dz, dizziness/syncope in 11/2018 felt from vasovagal/over diuresis, recurrent admissions, with GERARD/anemia, then recently in 01/2019 with CHF when d/jennifer after short stay with IV lasix, admitted with acute CHF -Acute on chronic systolic heart failure exacerbation, suspect from dietary non compliance -Non ischemic cardiomyopathy -Chronic systolic HF (Last Echo 11/2018 EF 40-45%), cath 08/2018 with non obstructive dz -Left shoulder/neck pain, suspect musculoskeletal, unlikely ACS -Recent lap hysterectomy/BSO/cystectomy 01/26/2019 -HTN -Hypothyroidism -Asthma -Obesity Plan: Cardiology input noted Lasix 80 mg IV today, transition to PO in am if no concerns. Monitor volume status. CHF education. Telemetry, repeat trop. Continue ASA/statin/coreg/Losartan/levothyroxine Pain control tylenol/flexeril. Home oxygen needs assessment prior to dc. Dispo dc in 24 horus on po lasix if volume status imprvoes and no new concerns. Plan discussed with patient and nursing in detail, all questions answered. Visit type - Emergency Visit Emergency Visit: Yes ED Registration Date: 03/12/19 Care time: The patient presented to the Emergency Department on the above date and was hospitalized for further evaluation of their emergent condition. - New Patient This patient is new to me today: No - Critical Care Critical Care patient: No - Discharge Referral Referred to [facility] Med P.C.: No
[2019-03-13] MEDS ORDERED: MAGNESIUM OXIDE 400 MG TABLET (FP) PO ONE (10:47)
[2019-03-13] MEDS: ACETAMINOPHEN 325 MG TABLET (FP) PO PRN ×2 (11:43→18:01)
[2019-03-13] MEDS: POTASSIUM CHLORIDE TABS 20 MEQ TABLET.ER (FP) PO SCH ×2 (11:44→17:04)
[2019-03-13 12:12] LABS: PLATELET COUNT 249 K/MM3 (134-434)
--- NOTE | 2019-03-13 12:38 | EKG ---
Test Reason : Blood Pressure : / mmHG Vent. Rate : 054 BPM Atrial Rate : 054 BPM P-R Int : 164 ms QRS Dur : 094 ms QT Int : 460 ms P-R-T Axes : 009 041 025 degrees QTc Int : 436 ms SINUS BRADYCARDIA WHEN COMPARED WITH ECG OF 31-JAN-2019 17:19, NO SIGNIFICANT CHANGE WAS FOUND Confirmed by FLORENTIN TAYLOR MD ([id number]) on 03/13/2019 12:37:46 PM Referred By: Confirmed By:FLORENTIN TAYLOR MD
[2019-03-13] MEDS ORDERED: PT OWN MED DRAWER 7, Y5N ONE (15:11)
[2019-03-13] MEDS: FERROUS SO4 325 MG TABLET (FP) PO SCH (18:00)
[2019-03-13] MEDS: CYCLOBENZAPRINE HCL 10 MG TABLET (FP) PO SCH (21:12)
[2019-03-13] MEDS ORDERED: ATORVASTATIN CA 10 MG TABLET (FP) PO SCH (22:00)
[2019-03-14] MEDS ORDERED: ALBUTEROL SO4 8 GM HFA INHALER IH ONE (01:48)
[2019-03-14] MEDS: ACETAMINOPHEN 325 MG TABLET (FP) PO PRN (01:49)
[2019-03-14 04:11] LABS: SERUM IRON SATURATION 12 % (15-55); TOTAL IRON BINDING CAPACITY 334 ug/dL (250-450); UIBC 293 ug/dL (131-425)
[2019-03-14] MEDS: LEVOTHYROXINE NA 25 MCG TABLET (FP) PO SCH (06:14)
[2019-03-14 07:42] LABS: BLOOD UREA NITROGEN 14.7 mg/dL (7-18); CALCIUM 8.9 mg/dL (8.5-10.1); CREATININE 0.9 mg/dL (0.55-1.3)
[2019-03-14] MEDS: FERROUS SO4 325 MG TABLET (FP) PO SCH ×2 (09:46→17:30)
[2019-03-14] MEDS: RANITIDINE HCL 150 MG TABLET (FP) PO SCH (09:46)
[2019-03-14] MEDS: ASPIRIN COATED 81 MG TABLET.EC PO SCH (09:46)
[2019-03-14] MEDS: PANTOPRAZOLE 20 MG TABLET (FP) PO SCH (09:46)
[2019-03-14] MEDS: LOSARTAN POTASSIUM 25 MG TABLET PO SCH (09:46)
[2019-03-14] MEDS: CARVEDILOL 12.5 MG TABLET (FP) PO SCH (09:46)
[2019-03-14] MEDS: FUROSEMIDE 40 MG/4 ML INJECTABLE VIAL IVPB SCH (09:47)
[2019-03-14] MEDS: ENOXAPARIN NA (PORCINE) 40 MG/0.4 ML DISP.SYRIN SQ SCH (09:47)
--- NOTE | 2019-03-14 11:35 | PN ---
Progress Note (short form) - Note Progress Note: s: no cp sob palps dizzy o: Vital Signs Period Temp Pulse Resp BP Sys/Sigala Pulse Ox Last 24 Hr 98.0 F-98.4 F 64-93 18-20 107-133/59-89 95-98 Constitutional: Yes: No Distress, Calm Eyes: Yes: Conjunctiva Clear Respiratory: Yes: CTA Bilaterally nl eff Gastrointestinal: Yes: Soft, Abdomen, Obese Cardiovascular: Yes: Regular Rate and Rhythm JVD: No Heart Sounds: Yes: S1, S2 (rrr) Edema: No Neurological: Yes: Alert, Oriented no jaundice diaphoresis Current Medications Generic Name Dose Route Start Last Admin Trade Name Freq PRN Reason Stop Dose Admin Acetaminophen 650 mg 03/13/19 11:30 03/14/19 01:49 Tylenol - PO 650 mg Q6H PRN Administration PAIN LEVEL 1-5 Albuterol Sulfate 1 - 2 puff 03/12/19 18:12 03/14/19 01:49 Ventolin Hfa Inhaler - IH 1 puff Q4H PRN Administration Dyspnea Aspirin 81 mg 03/13/19 10:00 03/14/19 09:46 Ecotrin - PO 81 mg DAILY FRANNIE Administration Atorvastatin Calcium 10 mg 03/13/19 22:00 03/13/19 21:12 Lipitor - PO 10 mg HS FRANNIE Administration Carvedilol 12.5 mg 03/12/19 22:00 03/14/19 09:46 Coreg - PO 12.5 mg BID FRANNIE Administration Cyclobenzaprine HCl 10 mg 03/12/19 22:00 03/13/19 21:12 Flexeril - PO 10 mg HS FRANNIE Administration Enoxaparin Sodium 40 mg 03/13/19 10:00 03/14/19 09:47 Lovenox - SQ 40 mg DAILY FRANNIE Administration Ferrous Sulfate 325 mg 03/13/19 18:30 03/14/19 09:46 Feosol - PO 325 mg BIDWM FRANNIE Administration Furosemide 80 mg 03/13/19 10:00 03/14/19 09:47 Lasix Injection - IVPB 80 mg DAILY FRANNIE Administration Levothyroxine Sodium 25 mcg 03/13/19 07:00 03/14/19 06:14 Synthroid - PO 25 mcg AM FRANNIE Administration Losartan Potassium 25 mg 03/13/19 10:00 03/14/19 09:46 Cozaar - PO 25 mg DAILY FRANNIE Administration Pantoprazole Sodium 20 mg 03/13/19 10:00 03/14/19 09:46 Protonix - PO 20 mg DAILY FRANNIE Administration Ranitidine HCl 300 mg 03/12/19 18:14 03/14/19 09:46 Zantac - PO 300 mg DAILY FRANNIE Administration CBC, BMP 03/13/19 06:15 03/14/19 05:10 tele: sr, artifact Assessment/Plan IMP: 1. Acute on chronic systolic CHF, possibly precipitated by dietary indiscretion 2. NICM 3. Obesity REC: 1. vol status improved after iv lasix, may now resume home lasix 80 po bid 2. Cont usual GDMT for chronic systolic CHF 3. May benefit from enrolling in [place] CHF care management program as outpatient. cardiac ortiz stable for dc
--- NOTE | 2019-03-14 14:09 | DS ---
Physical Exam: SUBJECTIVE: Patient seen and examined, breathing improved, no concerns. OBJECTIVE: Vital Signs Period Temp Pulse Resp BP Sys/Sigala Pulse Ox Last 24 Hr 98.0 F-98.4 F 64-93 18-20 107-133/70-89 95-98 Intake & Output 03/11/19 03/12/19 03/13/19 03/14/19 23:59 23:59 23:59 23:59 Intake Total 120 500 470 Output Total 1 500 Balance 120 499 -30 Weight 215 lb 205 lb PHYSICAL EXAM GENERAL: sitting in bed in no acute distress necK; soft, supple, no JVD visualized Chest: distant air entry all over, no rales or wheezing appreciated Abdomen:Soft, obese, NT Extremities: trace pedal edema Psych: anxious, appropriate LABS Laboratory Results - last 24 hr 03/13/19 03/13/19 03/14/19 06:15 06:15 05:10 Hct 29.4 L Haptoglobin 216 H Sodium 139 Potassium 4.0 Chloride 105 Carbon Dioxide 28 Anion Gap 6 L BUN 14.7 Creatinine 0.9 Est GFR (CKD-EPI)AfAm 85.20 Est GFR (CKD-EPI)NonAf 73.51 Random Glucose 125 H Calcium 8.9 Phosphorus 3.0 Magnesium 2.0 Iron 41 TIBC 334 Iron Saturation 12 L Transferrin 268 Folate 1390 Folate Hemolysate 408.8 CTA chest: There is good opacification of the central pulmonary vasculature with no filling defects suspicious for pulmonary embolism. The lung chandra are free of pulmonary masses, areas of acute consolidation or pleural effusions. There are increased interstitial markings diffusely indicative of chronic lung disease. Mild atelectatic changes are also noted at the lung bases. No mediastinal masses , fluid collections or lymphadenopathy are identified. The heart is not enlarged. There is no evidence of thoracic aortic aneurysm or dissection. Limited evaluation of the upper abdomen demonstrates no acute abnormalities. There is no evidence of acute bony pathology. IMPRESSION: 1. No evidence of pulmonary embolism. 2. Mild chronic lung disease with no acute pathology within the chest. HOSPITAL COURSE: Date of Admission:03/12/19 Date of Discharge: 03/14/19 Minutes to complete discharge: 40 Discharge Summary Reason For Visit: SOB Current Active Problems Anxiety (Acute) CHF (congestive heart failure) (Acute) CHF exacerbation (Acute) Dilated cardiomyopathy (Acute) Shortness of breath (Acute) Hospital Course: 53 yof with PMHx of HTN, hypothyroidism, asthma, obesity, nonischemic cardiomyopathy, chronic systolic HF (last Echo 11/2018 EF 40-45%), cath 08/2018 with non obstructive dz, dizziness/syncope in 11/2018 felt from vasovagal/over diuresis, recurrent admissions, with GERARD/anemia, then recently in 01/2019 with CHF when d/jennifer after short stay with IV lasix, admitted with progressive dyspnea , orthopnea, and weigh gain. She was suspected to have acute systolic heart failure exacerbation in the setting of dietary non compliance. She was placed on lasix 80 mg IV daily with improvement. She was seen by cardiology and will be transitioned to lasix 80 mg PO BID on discharge. She will be discharged home in stable condition with outpatient cardiology follow up and recommendations to participate in [facility] CHF program. Condition: Stable - Instructions Diet, Activity, Other Instructions: You were admitted with trouble breathing and received intravenous lasix. You were seen by cardiology. MEDICATIONS: Resume all your medications as before. Continue lasix at 80 mg twice daily. INSTRUCTIONS: Weigh yourself daily and notify doctor if weight gain > 3 lbs in 2 days. Advise strict low salt diet. FOLLOW UP: With primary care doctor in1 week With Dr. Peters in 1 week. Please discuss with your doctor about outpatient referral to CHF program. IF you notice severe trouble breathing or any new concerns, please call 911 or come to ED. Referrals: Tori Peters MD [Staff Physician] - Delia Urbina MD [Primary Care Provider] - Disposition: VNS/HOME HEALTH CARE - Home Medications Comprehensive Discharge Medication List: Ambulatory Orders Aspirin [Aspirin EC] 81 mg PO DAILY 11/12/18 Ergocalciferol (Vitamin D2) [Vitamin D2] 50,000 unit PO WEEKLY 11/12/18 Ferrous Sulfate 325 mg PO BID 11/12/18 Levothyroxine [Synthroid -] 25 mcg PO DAILY 11/12/18 Pantoprazole Sodium [Protonix -] 20 mg PO DAILY 11/12/18 Albuterol Sulfate Inhaler - [Ventolin HFA Inhaler -] 1 - 2 inh PO PRN PRN Atorvastatin Ca [Lipitor] 10 mg PO DAILY 01/16/19 Carvedilol [Coreg -] 12.5 mg PO BID #30 tablet 01/18/19 Losartan Potassium 25 mg PO DAILY 01/23/19 Cyclobenzaprine HCl [Flexeril 10 mg] 10 mg PO HS 03/12/19 Furosemide [Lasix] 80 mg PO BID 03/12/19 Ranitidine HCl 300 mg PO HS 03/12/19 This patient is new to me today: No Emergency Visit: Yes ED Registration Date: 03/12/19 Care time: The patient presented to the Emergency Department on the above date and was hospitalized for further evaluation of their emergent condition. Critical Care patient: No - Discharge Referral Referred to [facility] Med P.C.: No
[2019-03-14 14:55] VITALS: BP 114/79; PULSE 74; TEMP 97.8
== END 2019-03-14 17:30 | disposition home health service (06) | DRG 194 ==
LOC: JER 09:33 → JERBED 15:00 → J4S 18:26
PROVIDERS: ADMIT Hospitalist; ATTEND Hospitalist
DX: I11.0 Hypertensive heart disease with heart failure (principal); I50.23 Acute on chronic systolic (congestive) heart failure; E83.42 Hypomagnesemia; E87.6 Hypokalemia; E03.9 Hypothyroidism, unspecified; E66.9 Obesity, unspecified; J45.909 Unspecified asthma, uncomplicated; I42.9 Cardiomyopathy, unspecified; F41.9 Anxiety disorder, unspecified; D64.9 Anemia, unspecified; M25.512 Pain in left shoulder; Z91.11 Patient's noncompliance with dietary regimen; Z68.37 Body mass index [BMI] 37.0-37.9, adult
CPT/HCPCS: 36415; 71045-TC-FY; 71275-TC; 80048; 80053; 80061; 81003; 82525; 82550; 82607; 82728; 82747; 83010; 83036; 83540; 83550; 83721; 83735; 83880; 84100; 84439; 84443; 84466; 84484; 85014; 85025; 85044; 85379; 85610; 85730; 87086; 93005; 93010; 94761; 99283-25

== ENCOUNTER 2019-05-13 15:33 | Inpatient (IN) | payer OTHER ==
--- NOTE | 2019-05-13 15:43 | PDOC ---
Rapid Medical Evaluation Time Seen by Provider: 05/13/19 15:39 Medical Evaluation: Allergies Allergy/AdvReac Type Severity Reaction Status Date / Time No Known Allergies Allergy Verified 03/12/19 09:49 05/13/19 15:42 I have performed a brief in-person evaluation of this patient. The patient presents with a chief complaint of: epigastric pain Pertinent physical exam findings: VSS. AF. Lungs CTAB. No m/r/g. I have ordered the following: cardiac w/u The patient will proceed to the ED for further evaluation. Discharge Disposition - Diagnosis Epigastric pain - Referrals - Patient Instructions - Post Discharge Activity
--- NOTE | 2019-05-13 16:31 | PDOC ---
History of Present Illness - General Chief Complaint: Chest Pain Stated Complaint: CHEST PAIN Time Seen by Provider: 05/13/19 15:39 History Source: Patient Exam Limitations: No Limitations - History of Present Illness Initial Comments: 54 year old male with PMH HFREF idiopathic dilated cardiomyopathy (on loop diuretic), prior negative cath at [facility] (last EF 40-45% 11/13/18), HTN, H. pylori (diagnosed x1 week ago), hypothyroidism, obesity, asthma, anxiety presented to ED for chest pain since 0400 this AM. Pt reported she was laying in bed when the pain began. Pt reported pain is located to her left chest, intermittent, squeezing in sensation now, but shock-like at presentation, radiating to left neck, aggravated by lying flat, alleviated by siting forward. Pt admitted to left sided oral numbness, shortness of breath, NAVAS, and left sided neck pressure. Pt reported she was switched from Lasxi 80 mg BID to Torsemide 40 mg BID x1 month ago by Dr. Peters. Pt reported x1 week ago her PCP increased the following medications: increased Losartan 50 mg PO daily to Losartan 100 mg PO daily; Carvidolol 12.5 mg PO BID to Carvidolol 25 mg PO BID because of higher blood pressure recordings. Pt admitted to diarrhea (loose, watery) x1 week since starting H. Pylori antibiotics. Allergies: NKDA Past History - Past Medical History Allergies/Adverse Reactions: Allergies Allergy/AdvReac Type Severity Reaction Status Date / Time No Known Allergies Allergy Verified 05/13/19 15:44 Home Medications: Ambulatory Orders Aspirin [Aspirin EC] 81 mg PO DAILY 11/12/18 Ergocalciferol (Vitamin D2) [Vitamin D2] 50,000 unit PO WEEKLY 11/12/18 Ferrous Sulfate 325 mg PO BID 11/12/18 Levothyroxine [Synthroid -] 25 mcg PO DAILY 11/12/18 Pantoprazole Sodium [Protonix -] 20 mg PO DAILY 11/12/18 Albuterol Sulfate Inhaler - [Ventolin HFA Inhaler -] 1 - 2 inh PO PRN PRN Atorvastatin Ca [Lipitor] 10 mg PO DAILY 01/16/19 Losartan Potassium 100 mg PO DAILY 01/23/19 Cyclobenzaprine HCl [Flexeril 10 mg] 10 mg PO HS 03/12/19 Ranitidine HCl 300 mg PO HS 03/12/19 Amoxicillin - [Amoxicillin 500mg Capsule -] 500 mg PO BID 05/13/19 Carvedilol [Coreg -] 25 mg PO BID 05/13/19 Clarithromycin 500 mg PO BID 05/13/19 Torsemide [Demadex] 40 mg PO BID 05/13/19 Anemia: Yes (iron deficiency) Asthma: Yes Cancer: No Cardiac Disorders: No CVA: No COPD: No CHF: Yes Dementia: No Diabetes: No GI Disorders: No Disorders: No HTN: Yes Hypercholesterolemia: Yes Liver Disease: No Seizures: No Thyroid Disease: Yes (hypo) - Surgical History Abdominal Surgery: No Appendectomy: No Cardiac Surgery: No Cholecystectomy: No Lung Surgery: No Neurologic Surgery: No Orthopedic Surgery: No - Immunization History Immunization Up to Date: Yes - Suicide/Smoking/Psychosocial Hx Smoking Status: No Smoking History: Never smoked Have you smoked in the past 12 months: No Number of Cigarettes Smoked Daily: 2 If you are a former smoker, when did you quit?: 2000 Hx Alcohol Use: No Drug/Substance Use Hx: No Substance Use Type: None Hx Substance Use Treatment: No Review of Systems - Review of Systems Able to Perform ROS?: Yes Comments:: General: admitted to generalized weakness. denied fever, chills. HEENT: denied sore throat, rhinorrhea, ear pain. Cardiovascular: admitted to chest pain. denied palpitations, syncope, diaphoresis. Respiratory: admitted to shortness of breath, NAVAS. denied cough, sputum production, hemoptysis. Gastrointestinal: admitted to diarrhea. denied abdominal pain, nausea, vomiting , constipation, blood in stool. Genitourinary: denied dysuria, increased urinary frequency, hematuria, urinary incontinence, flank pain. Back: denied back pain. Musculoskeletal: denied joint pain, muscle pain, joint swelling. Neurological: denied headache, dizziness, numbness, tingling, weakness. Integumentary: denied rash, laceration, abrasion. Hematologic/Lymphatic: denied bruising or bleeding. *Physical Exam - Vital Signs Last Vital Signs Temp Pulse Resp BP Pulse Ox 98.0 F 70 16 93/65 97 05/13/19 15:39 05/13/19 15:39 05/13/19 15:39 05/13/19 15:39 05/13/19 15:39 - Physical Exam Comments: Constitutional: Well-nourished, Well-developed, appearing stated age. HEENT: head is normocephalic, atraumatic. EOMI. PERRLA. Neck: supple. Full ROM. Cardiovascular: regular heart rhythm. no murmurs. no pericardial friction rub. Respiratory: wheezing bilaterally. no crackles. no stridor. speaking full sentences. Gastrointestinal: soft, flat, nontender. normal bowel sounds. no rebound, guarding, masses. Extremities: peripheral pulses intact. no lower extremity edema. Neurological: CN 2-12 grossly intact. moves all four extremities. Psych: awake, alert, oriented x3. follows commands. answers questions appropriately. Skin: no obvious rashes to exposed skin. Procedures - Bedside Ultrasound Bedside Ultrasound: Cardiac Remarks: Bedside ECHO was technically limited. PSLA view showed decreased global squeeze , with no aortic root dilation, no pericardial effusion. Bedside lung US showed positive lung sliding bilaterally. no B-lines bilaterally. negative spine sign bilaterally. IVC US showed increased collapsibility - consistent with dehydration. Pt can tolerate fluid bolus. Heart Score/ECG Review - History History: Moderately suspicious - Electrocardiogram EKG: Non specific repolarization disturbance - Age Age: 45-65 - Risk Factors Risk Factors Heart Score: Yes Hx Hypercholesterolemia, Yes Hx Hypertension, Yes Hx Obesity Based on the list above the patient has:: >/=3 risk factors or Hx atherosclerotic disease - Troponin Troponin: </= normal limit - Score Heart Score - Total: 5 ED Treatment Course - LABORATORY CBC & Chemistry Diagram: 05/14/19 05:05 05/14/19 05:05 Medical Decision Making - Medical Decision Making 05/13/19 16:35 54 year old female with above PMH presented to ED for chest pain since 0 today. Pt also has diarrhea since starting recent triple antibiotic coverage for H. pylori. Initial Vital Signs Temp Pulse Resp BP Pulse Ox 98.0 F 70 16 93/65 97 05/13/19 15:39 05/13/19 15:39 05/13/19 15:39 05/13/19 15:39 05/13/19 15:39 Afebrile. No tachycardia. No tachypnea. Mild hypotension. No hypoxia on room air. Labs ordered: CBC, CMP, troponin, BNP, lipase Imaging ordered: CXR Medications ordered: ASA 162 mg PO chew once, duonebx3, normal saline bolus 500 cc once EKG performed at 1524: rate 68, regular rhythm, normal axis, QTc 499, flipped T V2, otherwise no acute ST changes. 05/13/19 18:27 Vital Signs O2 Sat by Pulse Oximetry (%) 99 05/13/19 18:17 05/13/19 18:41 CBC WBC 9.2 K/mm3 (4.0-10.0) 05/13/19 17:59 RBC 3.72 M/mm3 (3.60-5.2) 05/13/19 17:59 Hgb 10.8 GM/dL (10.7-15.3) 05/13/19 17:59 Hct 31.9 % (32.4-45.2) L 05/13/19 17:59 MCV 85.8 fl (80-96) 05/13/19 17:59 MCH 29.2 pg (25.7-33.7) 05/13/19 17:59 MCHC 34.0 g/dl (32.0-36.0) 05/13/19 17:59 RDW 14.5 % (11.6-15.6) 05/13/19 17:59 Plt Count 278 K/MM3 (134-434) 05/13/19 17:59 MPV 8.3 fl (7.5-11.1) 05/13/19 17:59 Absolute Neuts (auto) 6.1 K/mm3 (1.5-8.0) 05/13/19 17:59 Neutrophils % 66.8 % (42.8-82.8) 05/13/19 17:59 Lymphocytes % 23.2 % (8-40) 05/13/19 17:59 Monocytes % 5.9 % (3.8-10.2) 05/13/19 17:59 Eosinophils % 3.6 % (0-4.5) 05/13/19 17:59 Basophils % 0.5 % (0-2.0) 05/13/19 17:59 Nucleated RBC % 0 % (0-0) 05/13/19 17:59 No leukocytosis. No anemia. No thrombocytopenia. 05/13/19 19:10 CMP Sodium 142 mmol/L (136-145) 05/13/19 17:59 Potassium 2.8 mmol/L (3.5-5.1) L* 05/13/19 17:59 Chloride 104 mmol/L (98-107) 05/13/19 17:59 Carbon Dioxide 29 mmol/L (21-32) 05/13/19 17:59 Anion Gap 9 MMOL/L (8-16) 05/13/19 17:59 BUN 31.1 mg/dL (7-18) H 05/13/19 17:59 Creatinine 1.7 mg/dL (0.55-1.3) H 05/13/19 17:59 Est GFR (CKD-EPI)AfAm 39.49 05/13/19 17:59 Est GFR (CKD-EPI)NonAf 34.08 05/13/19 17:59 Random Glucose 112 mg/dL (74-106) H 05/13/19 17:59 Calcium 9.0 mg/dL (8.5-10.1) 05/13/19 17:59 Magnesium 1.8 mg/dL (1.8-2.4) 05/13/19 17:59 Total Bilirubin 0.6 mg/dL (0.2-1) 05/13/19 17:59 AST 18 U/L (15-37) 05/13/19 17:59 ALT 33 U/L (13-61) 05/13/19 17:59 Alkaline Phosphatase 109 U/L (45-117) 05/13/19 17:59 Creatine Kinase 105 U/L (26-192) 05/13/19 17:59 Troponin I < 0.02 ng/ml (0.00-0.05) 05/13/19 17:59 B-Natriuretic Peptide 97.4 pg/ml (5-125) 05/13/19 17:59 Total Protein 7.6 g/dl (6.4-8.2) 05/13/19 17:59 Albumin 3.4 g/dl (3.4-5.0) 05/13/19 17:59 Lipase 240 U/L (73-393) 05/13/19 17:59 Hypokalemia - fluids running Normal magnesium. GERARD - fluids running Troponin undetectable Lipase wnl BNP wnl Medications ordered: KCL 20 mEq PO once, KCL 10 mEq IV once CXR my view: no pulmonary vascular congestion. no obvious infiltrate or pneumothorax. -Pending official report Pt to be admitted for hypokalemia, chest pain. Pending admission. 05/14/19 12:30 Follow up: Official CXR report: Exam Date: 05/13/19 Status: TALIA [id number] Unit Number: [id number] EXAM#: TYPE/EXAM: RESULT: [id number] RAD/CHEST X-RAY PORTABLE* Chest pain. Left neck pain. Portable chest x ray, AP sitting Compared to prior chest x-ray dated 03/12/2019. The cardiac silhouette is within normal limits in size. The lung is clear. Mediastinum and visualized osseous structures appear intact . Impression: Unremarkable examination. Reported By: Destiny Santos MD 05/13/19 1923 *DC/Admit/Observation/Transfer Diagnosis at time of Disposition: Epigastric pain, Hypokalemia - Discharge Dispostion Condition at time of disposition: Stable Decision to Admit order: Yes - Referrals - Patient Instructions - Post Discharge Activity
[2019-05-13] MEDS ORDERED: ASPIRIN 81 MG CHEWABLE TABLETS PO ONE (16:48)
[2019-05-13] MEDS ORDERED: SODIUM CHLORIDE 500 ML IV STA (17:01)
[2019-05-13] MEDS ORDERED: ALBUTEROL SO4 2.5/IPRATROPIUM 0.5 INH SOL 3 ML VIAL.NEB. NEB ONE ×2 (17:01→17:50)
[2019-05-13] MEDS ORDERED: ASPIRIN 81 MG CHEWABLE TABLETS ONE (17:50)
[2019-05-13 18:23] LABS: BASO % 0.5 % (0-2.0); EOS % 3.6 % (0-4.5); HEMATOCRIT 31.9 % (32.4-45.2); HEMOGLOBIN 10.8 GM/dL (10.7-15.3); LYMPH % 23.2 % (8-40); MCH 29.2 pg (25.7-33.7); MEAN CELL VOLUME 85.8 fl (80-96); MEAN PLT VOLUME 8.3 fl (7.5-11.1); MONO % 5.9 % (3.8-10.2); NEUT % 66.8 % (42.8-82.8); PLATELET COUNT 278 K/MM3 (134-434); RBC 3.72 M/mm3 (3.60-5.2); RDW 14.5 % (11.6-15.6); WHITE BLOOD COUNT 9.2 K/mm3 (4.0-10.0)
--- NOTE | 2019-05-13 18:44 | PDOC ---
Documentation entered by Robby Palafox SCRIBE, acting as scribe for Susan Rachel MD. Susan Rachel MD: This documentation has been prepared by the Javy colin Elijah, SCRIBE, under my direction and personally reviewed by me in its entirety. I confirm that the documentation accurately reflects all work, treatment, procedures, and medical decision making performed by me. Attending Attestation - Resident Resident Name: Joselyn Chong - ED Attending Attestation I have performed the following: I have examined & evaluated the patient, The case was reviewed & discussed with the resident, I agree w/resident's findings & plan - HPI HPI: 05/13/19 17:38 Patient is a 54 year old female with a significant past medical history of idiopathic dilated cardiomyopathy, prior negative cath at [facility] (last EF 40-45%) , HTN, hypothyroidism, obesity, asthma, anxiety who presents to the ED Chest Pain beginning x13 hours ago. Patient reports that the pain woke her up in the middle of the night, led her to start gasping for air and have associated blurry vision. Patient notes that she has had increases in the dosages of her medicines. Allergies: NKA PCP: Dr. Maldonado Cardiologists: Dr. Peters 05/15/19 19:16 - Physicial Exam PE: 05/13/19 17:42 GENERAL: The patient is in no acute distress. ENT: Ears normal, nares patent, oropharynx clear without exudates. Moist mucous membranes. NECK: Normal range of motion, supple, no nuchal rigidity LUNGS: Breath sounds equal, clear to auscultation bilaterally. No wheezes, and no crackles. HEART: Regular rate and rhythm, normal S1 and S2 without murmur, rub or gallop. ABDOMEN: Soft, nontender, normoactive bowel sounds. No guarding, no rebound. No masses palpable. EXTREMITIES: Normal range of motion, no edema. NEUROLOGICAL: Cranial nerves II through XII grossly intact. Normal speech. No focal neurological deficits. SKIN: Warm, Dry, normal turgor, no rashes or lesions noted. - Medical Decision Making 05/13/19 18:34 MS Erazo is a 54 yo F h/o idiopathic dilated cardiomyopathy, prior negative cath at [facility] (last EF 40-45%), HTN, hypothyroidism, obesity, asthma, anxiety who presented to the ER due to awakening at 4am with chest pain She was laying in bed when this happened Symptoms woresn while laying flat Recent medication adjustments (increased Losartan from 50 mg daily to Losartan 100 mg daily; Carvidolol 12.5 mg BID to Carvidolol 25 mg BID due to elevated BP ) No cough No fevers or chills Pt recently was started on treatment for H pylori Developed diarrhea Laboratory Tests 03/13/19 05/13/19 06:15 17:59 WBC 5.8 9.2 Hgb 9.6 L 10.8 Hct 28.8 L 31.9 L Plt Count 249 278 05/13/19 18:35 CXR pending CMP pending Bedside US demonstrates No b lines, no effusion, collapsible IVC 05/13/19 18:55 Laboratory Tests 03/14/19 05/13/19 05:10 17:59 Sodium 139 142 Potassium 4.0 2.8 L* Chloride 105 104 Anion Gap 6 L 9 Creatinine 0.9 1.7 H Random Glucose 125 H 112 H Creatine Kinase 105 Troponin I < 0.02 GERARD (given IVF) Hypokalemia (will give potassium) Trop neg BNP - 97 Will admit
[2019-05-13 18:51] LABS: ALBUMIN 3.4 g/dl (3.4-5.0); ALK PHOS 109 U/L (45-117); ANION GAP 9 MMOL/L (8-16); BILIRUBIN,TOTAL 0.6 mg/dL (0.2-1); BLOOD UREA NITROGEN 31.1 mg/dL (7-18); CHLORIDE 104 mmol/L (98-107); CO2 29 mmol/L (21-32); CREATININE 1.7 mg/dL (0.55-1.3); GLUCOSE,RANDOM 112 mg/dL (74-106); LIPASE 240 U/L (73-393); MAGNESIUM 1.8 mg/dL (1.8-2.4); SGOT/AST 18 U/L (15-37); SGPT/ALT 33 U/L (13-61); SODIUM 142 mmol/L (136-145); TOT PROT 7.6 g/dl (6.4-8.2)
[2019-05-13 18:53] LABS: POTASSIUM 2.8 mmol/L (3.5-5.1)
[2019-05-13] MEDS ORDERED: KCL 10 MEQ IVPB 10 MEQ/100 ML INFUS.BAG IVPB SCH ×2 (19:15→23:45)
[2019-05-13] MEDS ORDERED: KCL 10 MEQ IVPB 10 MEQ/100 ML INFUS.BAG IVPB ONE (19:33)
--- NOTE | 2019-05-13 19:55 | PN ---
Teaching Attending Note ATTENDING PHYSICIAN STATEMENT I saw and evaluated the patient. I reviewed the resident's note and discussed the case with the resident. I agree with the resident's findings and plan as documented. Seen and examined; please refer to resident note for further historical information. Briefly, this is a 54 y/o female with PMH of CHF (systolic, 2/2 CHF, NYHA-II baseline), obesity, HTN, hypothyroid, anemia. She states that she woke up gasping from sleep due to apparent PND and then had pain in her L- breast and felt a "lump" which resolved with rubbing it. VS, labs, imaging reviewed NAD, AAO, resting in bed NC AT EOMI PERRLA RRR s1/2 Mild JVD noted, +HJR Obese, NT ND +BS CN2-12 wnl, no fnd EKG reviewed; tele ordered Echo 11/2018 shows LVEF 40-45% with global hypokinesis, normal RV, function, trace TR Prior EKGs and CV consults reviewed Prior cath at [facility] [place] reported as normal but I do not have the report ASSESSMENT AND PLAN: Patient is a 54 y/o female presenting with atypical chest pain relieved with rubbing breast lump; associated with what sounds to be PND # Atypical CP -Less likely cardiac; troponins and tele. Reviewed old reports. Consider consulting CV nonurgently. Continue home meds # Breast lump -OP mammography # Hx HFrEF (40%, NICM) -Negative BNP, on RA, baseline NYHA class. Continue home meds; takes lasix baseline torsemide with worsening edema # Likely TAIWO/PND sx -OP TAIWO eval # Obesity (BMI 34) -Counseled; consider bariatric referral prior to DC # Hypothyroidism -TSH pending Full Code
[2019-05-13 20:11] LABS: INR 1.03 (0.83-1.09); PROTHROMBIN TIME (PATIENT) 12.1 SEC (9.7-13.0)
[2019-05-13] MEDS ORDERED: ACETAMINOPHEN 325 MG TABLET (FP) PO PRN (20:40)
[2019-05-13] MEDS ORDERED: ALBUTEROL SO4 8 GM HFA INHALER IH PRN (21:16)
[2019-05-13] MEDS ORDERED: POTASSIUM CHLORIDE ORAL LIQUID 20 MEQ/15 ML ONE (21:27)
[2019-05-13] MEDS ORDERED: RANITIDINE HCL 150 MG TABLET (FP) ONE (21:27)
[2019-05-13] MEDS ORDERED: traMADol HCL 50 MG TABLET PO ONE (21:43)
[2019-05-13] MEDS ORDERED: RANITIDINE HCL 150 MG TABLET (FP) PO SCH (22:00)
[2019-05-13] MEDS ORDERED: POTASSIUM CHLORIDE ORAL LIQUID 20 MEQ/15 ML PO SCH (22:00)
--- NOTE | 2019-05-13 22:13 | HP ---
CHIEF COMPLAINT: Chest pain and perioral numbness PCP: Dr. Maldonado HISTORY OF PRESENT ILLNESS: 54 y/o F, pmh of Dilated CM, CHF, negative cath at [facility], HTN, H. Pylori- currently on abx, hypothyroidism, asthma, presents to the ED c/o of left-sided, localized, intermittent, squeezing, chest pain of 1 day duration radiating to the left side of the neck. Pt reports last month she went for an endoscopy to remove polyps during which they biopsied the stomach and it confirmed H-pylori. Pt has been on Abx since last week, however, during the week she visited her PCP who increased her BP meds, which she attributes to her drop in pressure and fainting the very next day. However, she was advised to go back to her original dose of BP. Now she presents with chest pain. She describes the pain as a cramping like pain, worsened when laying down and improved on sitting up and forward. Pt also reports perioral numbness that began at the same time. Pt reports that the symptoms started at 4 am, when she woke up and has since worsened. She admits to chills, n/v, headache, diarrhea of 1 week s/p H-pylori treatment. Denies fevers, sob, abdominal pain, urinary incontinence. ER course was notable for: (1) CXR- normal (2) Echo (11/25)- mild LV systolic dysfxn, global hypokinesia, trace Tricuspid regurge (3) Trop neg Recent Travel: denies PAST MEDICAL HISTORY: dilated cardiomyopathy, CHF, hyperlipidemia, prior negative cath at [facility] (last EF 40-45%), HTN, hypothyroidism, obesity, asthma, anxiety PAST SURGICAL HISTORY: Hysterectomy 4 months ago, forehead cyst removal, rib cyst removal Social History: Smoking: denies Alcohol: denies Drugs: denies Family History: Father- of Heart disease- CABG Allergies No Known Allergies Allergy (Verified 05/13/19 15:44) HOME MEDICATIONS: Home Medications Medication Instructions Recorded Aspirin [Aspirin EC] 81 mg PO DAILY 11/12/18 Ergocalciferol (Vitamin D2) 50,000 unit PO WEEKLY 11/12/18 [Vitamin D2] Ferrous Sulfate 325 mg PO BID 11/12/18 Levothyroxine [Synthroid -] 25 mcg PO DAILY 11/12/18 Pantoprazole Sodium [Protonix -] 20 mg PO DAILY 11/12/18 Albuterol Sulfate Inhaler - 1 - 2 inh PO PRN PRN 01/16/19 [Ventolin HFA Inhaler -] Atorvastatin Ca [Lipitor] 10 mg PO DAILY 01/16/19 Losartan Potassium 100 mg PO DAILY 01/23/19 Cyclobenzaprine HCl [Flexeril 10 10 mg PO HS 03/12/19 mg] Ranitidine HCl 300 mg PO HS 03/12/19 Amoxicillin - [Amoxicillin 500mg 500 mg PO BID 05/13/19 Capsule -] Carvedilol [Coreg -] 25 mg PO BID 05/13/19 Clarithromycin 500 mg PO BID 05/13/19 Torsemide [Demadex] 40 mg PO BID 05/13/19 REVIEW OF SYSTEMS CONSTITUTIONAL: Admits: chills, headache Absent: fever, chills, diaphoresis, malaise, loss of appetite, weight change CARDIOVASCULAR: Admits: chest pain, Absent: syncope, palpitations, irregular heart rate, lightheadedness, peripheral edema RESPIRATORY: Absent: cough, shortness of breath, dyspnea with exertion GASTROINTESTINAL: Admits: nausea, vomiting, diarrhea, Absent: abdominal pain, abdominal distension, constipation, melena, hematochezia GENITOURINARY: Absent: dysuria, frequency, urgency, hesitancy, hematuria, flank pain, genital pain NEUROLOGIC: Absent: focal weakness or paresthesias, dizziness, unsteady gait, seizure, mental status changes, bladder or bowel incontinence PSYCHIATRIC: Admits: anxiety, Absent: depression, suicidal or homicidal ideation, hallucinations. PHYSICAL EXAMINATION Vital Signs - 24 hr Last Vital Signs Temp Pulse Resp BP Pulse Ox 98.0 F 70 16 93/65 99 05/13/19 15:39 05/13/19 15:39 05/13/19 15:39 05/13/19 15:39 05/13/19 18:17 GENERAL: Awake, alert, and fully oriented, in no acute distress. EYES: Pupils equal, round and reactive to light, extraocular movements intact, NECK: supple without lymphadenopathy, JVD, or masses. No thyroid fullness LUNGS: Breath sounds equal, clear to auscultation bilaterally. No wheezes, and no crackles. HEART: Regular rate and rhythm, normal S1 and S2 without murmur, rub or gallop. Chest: no tenderness on palpation ABDOMEN: Soft, nontender, not distended, normoactive bowel sounds, no guarding, no rebound, no masses. MUSCULOSKELETAL: Pain on ROM of Left UE. Pain on palpation of spine and paraspinal muscles. Normal range of motion at all other joints. UPPER EXTREMITIES: 2+ pulses, warm, well-perfused. No peripheral edema. LOWER EXTREMITIES: 2+ pulses, warm, well-perfused. No peripheral edema. PSYCHIATRIC: Cooperative. Good eye contact. Laboratory Results - last 24 hr CBC, BMP 05/13/19 17:59 Abnormal Lab Results 05/13/19 05/13/19 17:59 17:59 Hct 31.9 L Potassium 2.8 L* BUN 31.1 H Creatinine 1.7 H Random Glucose 112 H ASSESSMENT/PLAN: 54 y/o F, pmh of Dilated CM, CHF, negative cath at [facility], HTN, H. Pylori- currently on abx, presents to the ED c/o of left-sided, localized chest pain of 1 day #Atypical chest Pain r/o ACS vs Musculoskeletal Monitor on tele EKG neg CXR neg Tramadol 50mg for pain continue Aspirin 1st Trop neg- f/u trops f/u labs #Hypokalemia Monitor Potassium replete Potassium- f/u magnesium ordered #Diarrhea r/o C. Diff C-diff stool study- pending daily weights PPI given #Hypothyroidism Continue home meds- synthroid TSH levels- f/u #GERARD 500 bolus given in ED Educate pts about appropriate medication use w/ diuretics #Hyperlipidemia Continue home meds- atorvastatin #DVT ppx Heparin SQ Q8H FEN: Low sodium diet Dispo: f/u stool studies, r/o c-diff and ACS, replete potassium, symptomatic management Visit type - Emergency Visit Emergency Visit: Yes ED Registration Date: 05/13/19 Care time: The patient presented to the Emergency Department on the above date and was hospitalized for further evaluation of their emergent condition. - New Patient This patient is new to me today: Yes Date on this admission: 05/15/19 - Critical Care Critical Care patient: No ATTENDING PHYSICIAN STATEMENT I saw and evaluated the patient. I reviewed the resident's note and discussed the case with the resident. I agree with the resident's findings and plan as documented. SUBJECTIVE: OBJECTIVE: ASSESSMENT AND PLAN:
[2019-05-13] MEDS ORDERED: traMADol HCL 50 MG TABLET ONE (22:19)
--- NOTE | 2019-05-13 23:25 | EKG ---
Test Reason : Blood Pressure : / mmHG Vent. Rate : 068 BPM Atrial Rate : 068 BPM P-R Int : 150 ms QRS Dur : 086 ms QT Int : 470 ms P-R-T Axes : 059 045 037 degrees QTc Int : 499 ms NORMAL SINUS RHYTHM PROLONGED QT ABNORMAL ECG WHEN COMPARED WITH ECG OF 12-MAR-2019 09:59, QT HAS LENGTHENED Confirmed by COLUMBA KEENAN MD ([id number]) on 05/13/2019 11:25:37 PM Referred By: Confirmed By:COLUMBA KEENAN MD
[2019-05-13] MEDS ORDERED: MAGNESIUM SULF 50% (8.12 MEQ/2 ML-1 GM VIAL) IVPB ONE (23:34)
[2019-05-14] MEDS ORDERED: KCL 10 MEQ IVPB 10 MEQ/100 ML INFUS.BAG IVPB ONE ×3 (00:03→10:47)
[2019-05-14] MEDS ORDERED: MAGNESIUM 1GM/D5W - 2 GM/200 ML IVPB IVPB ONE (00:03)
[2019-05-14 06:01] LABS: BASO % 0.5 % (0-2.0); EOS % 4.2 % (0-4.5); HEMATOCRIT 28.5 % (32.4-45.2); HEMOGLOBIN 9.7 GM/dL (10.7-15.3); LYMPH % 30.9 % (8-40); MCH 29.2 pg (25.7-33.7); MEAN CELL VOLUME 85.8 fl (80-96); MONO % 8.4 % (3.8-10.2); PLATELET COUNT 237 K/MM3 (134-434); RBC 3.32 M/mm3 (3.60-5.2); RDW 14.6 % (11.6-15.6); WHITE BLOOD COUNT 6.6 K/mm3 (4.0-10.0)
[2019-05-14] MEDS ORDERED: HEPARIN NA (PORCINE) 5,000 UNITS/ML 1ML VIAL ONE (06:17)
[2019-05-14] MEDS ORDERED: LEVOTHYROXINE NA 25 MCG TABLET (FP) ONE (06:17)
[2019-05-14] MEDS: HEPARIN NA (PORCINE) 5,000 UNITS/ML 1ML VIAL SQ SCH ×3 (06:42→21:58)
[2019-05-14] MEDS: LEVOTHYROXINE NA 25 MCG TABLET (FP) PO SCH (06:43)
[2019-05-14 07:23] LABS: ALBUMIN 3.1 g/dl (3.4-5.0); BILIRUBIN,TOTAL 0.4 mg/dL (0.2-1); BLOOD UREA NITROGEN 32.9 mg/dL (7-18); CALCIUM 8.9 mg/dL (8.5-10.1); CREATININE 1.3 mg/dL (0.55-1.3); MAGNESIUM 2.4 mg/dL (1.8-2.4); TOT PROT 6.8 g/dl (6.4-8.2)
[2019-05-14 07:30] LABS: POTASSIUM 2.9 mmol/L (3.5-5.1)
[2019-05-14] MEDS: KCL 10 MEQ IVPB 10 MEQ/100 ML INFUS.BAG IVPB SCH ×2 (08:40→10:46)
[2019-05-14] MEDS: ASPIRIN COATED 81 MG TABLET.EC PO SCH (09:27)
[2019-05-14] MEDS: POTASSIUM CHLORIDE ORAL LIQUID 20 MEQ/15 ML PO SCH (09:27)
[2019-05-14] MEDS: PANTOPRAZOLE 20 MG TABLET (FP) PO SCH (09:27)
--- NOTE | 2019-05-14 11:20 | CON.CARD ---
Cardiology Consult (text) - Consultation Consultation Note: Chief Complaint: SOB, cp History of Present Illness: This is a 54yo F with PMH of HFREF idiopathic dilated cardiomyopathy , prior negative cath at [facility] (last EF 40-45%), HTN, hypothyroidism, obesity, fibroid status post hysterectomy, asthma, anxiety, who presents with sob and chest pain. Last night had sob and chest pain, sharp under left breast. CP worse with deep breaths and palpation. No palps dizzy loc pnd orthopnea le edema. - History Source History Provided By: Patient - Past Medical History Cardio/Vascular: Yes: CHF, HTN Pulmonary: Yes: Asthma Gastrointestinal: Yes: Ulcerative Colitis Renal/: Yes: Renal Inusuff ...LMP: 01/09/19 - Past Surgical History Past Surgical History: Yes: Tubal Ligation - Alcohol/Substance Use Hx Alcohol Use: No History of Substance Use: reports: None - Smoking History Smoking history: Former smoker Have you smoked in the past 12 months: No Aproximately how many cigarettes per day: 2 If you are a former smoker, when did you quit?: 2000 - Social History ADL: Independent History of Recent Travel: No Home Medications - Allergies Allergies/Adverse Reactions: Allergies Allergy/AdvReac Type Severity Reaction Status Date / Time No Known Allergies Allergy Verified 05/13/19 15:44 - Home Medications Ambulatory Orders Aspirin [Aspirin EC] 81 mg PO DAILY 11/12/18 Ergocalciferol (Vitamin D2) [Vitamin D2] 50,000 unit PO WEEKLY 11/12/18 Ferrous Sulfate 325 mg PO BID 11/12/18 Levothyroxine [Synthroid -] 25 mcg PO DAILY 11/12/18 Pantoprazole Sodium [Protonix -] 20 mg PO DAILY 11/12/18 Albuterol Sulfate Inhaler - [Ventolin HFA Inhaler -] 1 - 2 inh PO PRN PRN Atorvastatin Ca [Lipitor] 10 mg PO DAILY 01/16/19 Losartan Potassium 100 mg PO DAILY 01/23/19 Cyclobenzaprine HCl [Flexeril 10 mg] 10 mg PO HS 03/12/19 Ranitidine HCl 300 mg PO HS 03/12/19 Amoxicillin - [Amoxicillin 500mg Capsule -] 500 mg PO BID 05/13/19 Carvedilol [Coreg -] 25 mg PO BID 05/13/19 Clarithromycin 500 mg PO BID 05/13/19 Torsemide [Demadex] 40 mg PO BID 05/13/19 Family Disease History - Family Disease History Family Disease History: Diabetes: Mother, Heart Disease: Father (renal failure) , Other: Father Review of Systems - Review of Systems Constitutional: reports: No Symptoms Eyes: reports: No Symptoms HENT: reports: No Symptoms Cardiovascular: reports: Shortness of Breath Respiratory: reports: Exercise Intolerance, SOB on Exertion Gastrointestinal: denies: No Symptoms, Abdominal Pain, Bloating, Constipation, Diarrhea, Dysphagia, Indigestion, Melena, Nausea, Rectal Bleeding, Vomiting, Vomiting Blood, Other Genitourinary: denies: No Symptoms, Burning, Discharge, Dysuria, Flank Pain, Frequency, Hematuria, Incontinence, Lesions, Menses, Pain, Testicular Mass, Testicular Pain, Testicular Swelling, Urgency, Vaginal Bleeding, Other Breasts: denies: No Symptoms Reported, See HPI, Breast Implants, Discharge from Nipple, Lumps, Pain, Skin Changes, Other Musculoskeletal: denies: No Symptoms, Back Pain, Crepitus, Decreased ROM, Extremity Pain, Joint Pain, Joint Swelling, Muscle Pain, Muscle Cramps, Muscle Weakness, Other Integumentary: denies: No Symptoms, Blister, Bruising, Change in Color, Eczema, Erythema, Incision, Lesions, Lump, Pallor, Pruritis, Rash, Wound, Other Neurological: denies: No Symptoms, Change in LOC, Change in Speech, Confusion, Dizziness, Headache, Incoordination, Numbness, Parasthesia, Pre-Existing Deficit , Seizure, Syncope, Tremors, Unsteady Gait, Weakness, Other Endocrine: denies: No Symptoms, Excessive Sweating, Flushing, Increased Hunger, Increased Thirst, Intolerance to Cold, Intolerance to Heat, Unexplained Weight Gain, Unexplained Weight Loss, Other Hematology/Lymphatic: denies: No Symptoms, Easily Bruised, Excessive Bleeding, Swollen Glands, Other Psychiatric: denies: No Symptoms, Altered Sleep Pattern, Anxiety, Depression, Hallucinations, Panic, Paranoia, Suicidal, Other - Risk Factors Known Risk Factors: Yes: Hypertension Vital Signs: Vital Signs Period Temp Pulse Resp BP Sys/Sigala Pulse Ox Last 24 Hr 98.0 F-98.3 F 58-70 16-16 93-119/63-80 97-99 Constitutional: Yes: No Distress, Calm Eyes: Yes: Conjunctiva Clear Respiratory: Yes: CTA Bilaterally nl eff Gastrointestinal: Yes: Soft, Abdomen, Obese Cardiovascular: Yes: Regular Rate and Rhythm JVD: No Carotid Bruit: No PMI: Non-Displaced Heart Sounds: Yes: S1, S2 (rrr) Edema: No Neurological: Yes: Alert, Orientedx3 ...Motor Strength: WNL no jaundice diaphoresis +chest wall tenderness - Other Data Labs, Other Data: Laboratory Last Values WBC 6.6 K/mm3 (4.0-10.0) 05/14/19 05:05 RBC 3.32 M/mm3 (3.60-5.2) L 05/14/19 05:05 Hgb 9.7 GM/dL (10.7-15.3) L 05/14/19 05:05 Hct 28.5 % (32.4-45.2) L 05/14/19 05:05 MCV 85.8 fl (80-96) 05/14/19 05:05 MCH 29.2 pg (25.7-33.7) 05/14/19 05:05 MCHC 34.0 g/dl (32.0-36.0) 05/14/19 05:05 RDW 14.6 % (11.6-15.6) 05/14/19 05:05 Plt Count 237 K/MM3 (134-434) 05/14/19 05:05 MPV 8.0 fl (7.5-11.1) 05/14/19 05:05 Absolute Neuts (auto) 3.7 K/mm3 (1.5-8.0) 05/14/19 05:05 Neutrophils % 56.0 % (42.8-82.8) 05/14/19 05:05 Lymphocytes % 30.9 % (8-40) D 05/14/19 05:05 Monocytes % 8.4 % (3.8-10.2) 05/14/19 05:05 Eosinophils % 4.2 % (0-4.5) 05/14/19 05:05 Basophils % 0.5 % (0-2.0) 05/14/19 05:05 Nucleated RBC % 0 % (0-0) 05/14/19 05:05 PT with INR 12.10 SEC (9.7-13.0) 05/13/19 17:59 INR 1.03 (0.83-1.09) 05/13/19 17:59 Sodium 138 mmol/L (136-145) 05/14/19 05:05 Potassium 2.9 mmol/L (3.5-5.1) L* 05/14/19 05:05 Chloride 101 mmol/L (98-107) 05/14/19 05:05 Carbon Dioxide 29 mmol/L (21-32) 05/14/19 05:05 Anion Gap 8 MMOL/L (8-16) 05/14/19 05:05 BUN 32.9 mg/dL (7-18) H 05/14/19 05:05 Creatinine 1.3 mg/dL (0.55-1.3) 05/14/19 05:05 Est GFR (CKD-EPI)AfAm 54.62 05/14/19 05:05 Est GFR (CKD-EPI)NonAf 47.13 05/14/19 05:05 Random Glucose 94 mg/dL (74-106) 05/14/19 05:05 Calcium 8.9 mg/dL (8.5-10.1) 05/14/19 05:05 Magnesium 2.4 mg/dL (1.8-2.4) 05/14/19 05:05 Total Bilirubin 0.4 mg/dL (0.2-1) 05/14/19 05:05 AST 16 U/L (15-37) 05/14/19 05:05 ALT 29 U/L (13-61) 05/14/19 05:05 Alkaline Phosphatase 89 U/L (45-117) 05/14/19 05:05 Creatine Kinase 105 U/L (26-192) 05/13/19 17:59 Troponin I < 0.02 ng/ml (0.00-0.05) 05/13/19 21:35 B-Natriuretic Peptide 97.4 pg/ml (5-125) 05/13/19 17:59 Total Protein 6.8 g/dl (6.4-8.2) 05/14/19 05:05 Albumin 3.1 g/dl (3.4-5.0) L 05/14/19 05:05 Lipase 240 U/L (73-393) 05/13/19 17:59 TSH 4.45 uIU/ml (0.358-3.74) H 05/14/19 05:05 Blood Type O NEGATIVE 05/13/19 19:20 Antibody Screen Negative 05/13/19 19:20 cxr: clear lungs ecg: sr, no ischemic changes, prolonged qtc echo 08/2018 severe global hypokinesis of LV, EF 20-25%. RV tds. LA bl dilated. mild MR echo 11/2018 LV function mild to mod reduced, EF 40-45%, mild to mod global hypokinesis of LV, nl RV function a/p: This is a 54yo F with PMH of HFREF idiopathic dilated cardiomyopathy , prior negative cath at [facility] (last EF 40-45%), HTN, hypothyroidism, obesity, fibroid status post hysterectomy, asthma, anxiety, who presents with sob and chest pain. chest pain, sob - cp likely MSK, worse with moving arm, palpation, deep breaths - no signs acs or chf, trops negx2 - cath 08/2018 with non obs cad - monitor for now Chronic systolic HF - no signs of acute failure - cardiac cath nonobstructive dz 08/2018 - cont home lisinopril 40 mg daily, carvedilol 25 mg BID - resume home lasix when low k normalized HTN - cont home meds hypothyroidism - manage per primary hypokalemia, abnl ecg: -ecg with long qtc, likely from low k. Replete k, monitor on tele, repeat ecg when k corrected.
[2019-05-14] MEDS ORDERED: LOSARTAN POTASSIUM 25 MG TABLET PO SCH (11:45)
--- NOTE | 2019-05-14 11:56 | PN ---
Physical Exam: SUBJECTIVE: Patient seen and examined complain of left side chest pain worsening with breathing and moving complain of generalized weakness. OBJECTIVE: Vital Signs Period Temp Pulse Resp BP Sys/Sigala Pulse Ox Last 24 Hr 98.0 F-98.3 F 58-70 16-16 93-119/63-80 97-99 GENERAL: AAOx3 in NAD HEAD: NC/AT EYES: EOMI, Conjunctiva clear, sclera anicteric ENT: moist mucous membrane NECK: Supple, no JVD LUNGS: CTA B/L, no crackles no wheezing no accessory muscle use.tenderness on left side ribs beneath the breast. HEART: RRR normal s1, s2, no M/R/G ABDOMEN: Soft, ND, NT, +BS 4 Q, no CVA Tenderness LOWER EXTREMITIES: no edema, +2DP pulse, NEUROLOGICAL: No focal deficit. Normal speech. gait not observed. PSYCHIATRIC: Cooperative. Good eye contact. Appropriate mood and affect. SKIN: Warm, dry, Laboratory Results - last 24 hr 05/13/19 05/13/19 05/13/19 17:59 17:59 17:59 WBC 9.2 RBC 3.72 Hgb 10.8 Hct 31.9 L MCV 85.8 MCH 29.2 MCHC 34.0 RDW 14.5 Plt Count 278 MPV 8.3 Absolute Neuts (auto) 6.1 Neutrophils % 66.8 Lymphocytes % 23.2 Monocytes % 5.9 Eosinophils % 3.6 Basophils % 0.5 Nucleated RBC % 0 PT with INR INR Sodium 142 Potassium 2.8 L* Chloride 104 Carbon Dioxide 29 Anion Gap 9 BUN 31.1 H Creatinine 1.7 H Est GFR (CKD-EPI)AfAm 39.49 Est GFR (CKD-EPI)NonAf 34.08 Random Glucose 112 H Calcium 9.0 Magnesium 1.8 Total Bilirubin 0.6 AST 18 ALT 33 Alkaline Phosphatase 109 Creatine Kinase 105 Troponin I < 0.02 B-Natriuretic Peptide 97.4 Total Protein 7.6 Albumin 3.4 Lipase 240 TSH Blood Type Antibody Screen 05/13/19 05/13/19 05/13/19 17:59 19:20 21:35 WBC RBC Hgb Hct MCV MCH MCHC RDW Plt Count MPV Absolute Neuts (auto) Neutrophils % Lymphocytes % Monocytes % Eosinophils % Basophils % Nucleated RBC % PT with INR 12.10 INR 1.03 Sodium Potassium Chloride Carbon Dioxide Anion Gap BUN Creatinine Est GFR (CKD-EPI)AfAm Est GFR (CKD-EPI)NonAf Random Glucose Calcium Magnesium Total Bilirubin AST ALT Alkaline Phosphatase Creatine Kinase Troponin I < 0.02 B-Natriuretic Peptide Total Protein Albumin Lipase TSH Blood Type O NEGATIVE Antibody Screen Negative 05/14/19 05/14/19 05/14/19 02:20 05:05 05:05 WBC 6.6 RBC 3.32 L Hgb 9.7 L Hct 28.5 L MCV 85.8 MCH 29.2 MCHC 34.0 RDW 14.6 Plt Count 237 MPV 8.0 Absolute Neuts (auto) 3.7 Neutrophils % 56.0 Lymphocytes % 30.9 D Monocytes % 8.4 Eosinophils % 4.2 Basophils % 0.5 Nucleated RBC % 0 PT with INR INR Sodium 138 Potassium 3.0 L 2.9 L* Chloride 101 Carbon Dioxide 29 Anion Gap 8 BUN 32.9 H Creatinine 1.3 Est GFR (CKD-EPI)AfAm 54.62 Est GFR (CKD-EPI)NonAf 47.13 Random Glucose 94 Calcium 8.9 Magnesium 2.4 Total Bilirubin 0.4 AST 16 ALT 29 Alkaline Phosphatase 89 Creatine Kinase Troponin I B-Natriuretic Peptide Total Protein 6.8 Albumin 3.1 L Lipase TSH 4.45 H Blood Type Antibody Screen Active Medications Generic Name Dose Route Start Last Admin Trade Name Freq PRN Reason Stop Dose Admin Acetaminophen 650 mg 05/13/19 20:40 Tylenol - PO Q4H PRN PAIN Albuterol Sulfate 1 puff 05/13/19 21:16 05/14/19 04:54 Ventolin Hfa Inhaler - IH 1 puff Q4H PRN Administration Dyspnea Aspirin 81 mg 05/14/19 10:00 05/14/19 09:27 Ecotrin - PO 81 mg DAILY FRANNIE Administration Atorvastatin Calcium 10 mg 05/14/19 22:00 Lipitor - PO HS FRANNIE Carvedilol 25 mg 05/14/19 22:00 Coreg - PO BID FRANNIE Heparin Sodium (Porcine) 5,000 unit 05/14/19 06:00 05/14/19 06:42 Heparin - SQ 5,000 unit TID FRANNIE Administration Ketorolac Tromethamine 10 mg 05/14/19 12:00 Toradol PO 05/19/19 11:59 Q6HPO FRANNIE Levothyroxine Sodium 25 mcg 05/14/19 07:00 08/08/19 06:43 Synthroid - PO 25 mcg AM FRANNIE Administration Losartan Potassium 100 mg 05/15/19 11:45 Cozaar - PO DAILY FRANNIE Pantoprazole Sodium 20 mg 05/14/19 10:00 05/14/19 09:27 Protonix - PO 20 mg DAILY FRANNIE Administration Potassium Chloride 20 meq 05/14/19 10:00 05/14/19 09:27 Potassium Chloride Oral Liquid PO 20 meq DAILY FRANNIE Administration Ranitidine HCl 300 mg 05/13/19 22:00 05/13/19 21:38 Zantac - PO 300 mg HS FRANNIE Administration CBC, BMP 05/14/19 05:05 05/14/19 05:05 ASSESSMENT/PLAN: 54 y/o F, pmh of Dilated CM, CHF, negative cath at [place], HTN, H. Pylori- currently on abx, presents to the ED c/o of left-sided, localized chest pain of 1 day #Atypical chest Pain r/o ACS , most likely Musculoskeletal as pain worsening with movememt and deep breathing . * Monitor on tele * EKG neg * CXR neg * Tramadol for pain, cont , * continue Aspirin * Trop neg x3 * cardiology consulted agree with the plan. #Hypokalemia, due to diarrhea and diuretics * replinished as needed * hold lasix , #Diarrhea r/o C. Diff * C-diff stool study- as pt was on recent abx for Hpylori * daily weights * PPI given, dc ranitidin # Prolonged QTC 499 , correct K and repeat EKG ,monitor in Tele #Hypothyroidism * Continue home meds- synthroid * TSH levels-4.5 repeat out pt #GERARD, likely pre renal improved with fluids , cont to monitor Cr #Hyperlipidemia * Continue home meds- atorvastatin #DVT ppx * Heparin SQ Q8H FEN: * Low sodium diet Visit type - Emergency Visit Emergency Visit: Yes ED Registration Date: 05/13/19 Care time: The patient presented to the Emergency Department on the above date and was hospitalized for further evaluation of their emergent condition. - New Patient This patient is new to me today: No - Critical Care Critical Care patient: No ATTENDING PHYSICIAN STATEMENT I saw and evaluated the patient. I reviewed the resident's note and discussed the case with the resident. I agree with the resident's findings and plan as documented. SUBJECTIVE: OBJECTIVE: ASSESSMENT AND PLAN:
[2019-05-14] MEDS: KETOROLAC TROMETHAMINE 10 MG TABLET PO SCH ×2 (12:08→17:50)
[2019-05-14 12:52] LABS: BLOOD UREA NITROGEN 28.9 mg/dL (7-18); CALCIUM 8.9 mg/dL (8.5-10.1); CREATININE 1.2 mg/dL (0.55-1.3); POTASSIUM 3.6 mmol/L (3.5-5.1)
--- NOTE | 2019-05-14 13:48 | EKG ---
Test Reason : Blood Pressure : / mmHG Vent. Rate : 067 BPM Atrial Rate : 067 BPM P-R Int : 178 ms QRS Dur : 092 ms QT Int : 480 ms P-R-T Axes : 033 016 028 degrees QTc Int : 507 ms NORMAL SINUS RHYTHM PROLONGED QT ABNORMAL ECG WHEN COMPARED WITH ECG OF 13-MAY-2019 15:42, NO SIGNIFICANT CHANGE WAS FOUND Confirmed by STEPHANIE COONEY MD ([id number]) on 05/14/2019 1:47:46 PM Referred By: Confirmed By:STEPHANIE COONEY MD
[2019-05-14] MEDS ORDERED: TORSEMIDE 20 MG TABLET (FP) PO SCH (16:00)
--- NOTE | 2019-05-14 18:35 | PN ---
Teaching Attending Note Name of Resident: Uri Soto ATTENDING PHYSICIAN STATEMENT I saw and evaluated the patient. I reviewed the resident's note and discussed the case with the resident. I agree with the resident's findings and plan as documented. SUBJECTIVE: Ms Erazo complains of difficulty breathing on lying flat. Also still with diarrhea. No cp, sob, n/v. OBJECTIVE: Last Vital Signs Temp Pulse Resp BP Pulse Ox 36.8 C 74 16 125/87 99 05/14/19 18:00 05/14/19 18:00 05/14/19 18:00 05/14/19 18:00 05/14/19 18:00 Gen: nad, obese Pulm: ctab w/o w/r/r CV: rrr w/o m/r/g Abd: +bs, s/nt/nd Ext: no c/c/e CBC, BMP 05/14/19 05:05 05/14/19 12:12 ASSESSMENT AND PLAN: Problem List - Problems (1) Hypokalemia Assessment/Plan: -secondary to diarrhea -replaced -monitor Code(s): E87.6 - HYPOKALEMIA (2) GERARD (acute kidney injury) Assessment/Plan: -improved with hydration -hold IVF currently -see if maintains fluid status with po intake Code(s): N17.9 - ACUTE KIDNEY FAILURE, UNSPECIFIED (3) CHF (congestive heart failure) Assessment/Plan: -not in exacerbation -monitor -possible restart diuretics tomorrow Code(s): I50.9 - HEART FAILURE, UNSPECIFIED Qualifiers: Heart failure type: systolic Heart failure chronicity: chronic Qualified Code(s): I50.22 - Chronic systolic (congestive) heart failure (4) Asthma Assessment/Plan: -continue home regimen Code(s): J45.909 - UNSPECIFIED ASTHMA, UNCOMPLICATED Qualifiers: Asthma severity: moderate persistent Asthma complication type: with acute exacerbation Qualified Code(s): J45.41 - Moderate persistent asthma with ( acute) exacerbation (5) Hypertension Assessment/Plan: -continue current regimen Code(s): I10 - ESSENTIAL (PRIMARY) HYPERTENSION Qualifiers: Hypertension type: essential hypertension Qualified Code(s): I10 - Essential (primary) hypertension (6) Hypothyroidism Assessment/Plan: -continue synthroid Code(s): E03.9 - HYPOTHYROIDISM, UNSPECIFIED (7) Obesity (BMI 30-39.9) Assessment/Plan: -outpatient weight loss program Code(s): E66.9 - OBESITY, UNSPECIFIED (8) Chest pain Assessment/Plan: -atypical -appreciate cardiology assistance -no further evaluation needed Code(s): R07.9 - CHEST PAIN, UNSPECIFIED Qualifiers: Chest pain type: intercostal pain Qualified Code(s): R07.82 - Intercostal pain
[2019-05-14] MEDS: ATORVASTATIN CA 10 MG TABLET (FP) PO SCH (21:58)
[2019-05-14] MEDS: CARVEDILOL 25 MG TABLET (FP) PO SCH (21:58)
[2019-05-15] MEDS: KETOROLAC TROMETHAMINE 10 MG TABLET PO SCH ×4 (00:08→17:37)
[2019-05-15] MEDS: HEPARIN NA (PORCINE) 5,000 UNITS/ML 1ML VIAL SQ SCH ×3 (05:09→21:55)
[2019-05-15] MEDS: LEVOTHYROXINE NA 25 MCG TABLET (FP) PO SCH (06:18)
[2019-05-15] MEDS ORDERED: PT OWN MED DRAWER 7, Y5N ONE (06:39)
[2019-05-15 07:15] LABS: ALBUMIN 2.8 g/dl (3.4-5.0); BILIRUBIN,TOTAL 0.3 mg/dL (0.2-1); CALCIUM 8.8 mg/dL (8.5-10.1); CREATININE 1.2 mg/dL (0.55-1.3); MAGNESIUM 2.3 mg/dL (1.8-2.4); PHOSPHOROUS 3.4 mg/dL (2.5-4.9); POTASSIUM 3.4 mmol/L (3.5-5.1); TOT PROT 6.4 g/dl (6.4-8.2)
[2019-05-15 07:23] LABS: BASO % 0.7 % (0-2.0); HEMATOCRIT 27.9 % (32.4-45.2); HEMOGLOBIN 9.5 GM/dL (10.7-15.3); LYMPH % 31.3 % (8-40); MCH 29.6 pg (25.7-33.7); MCHC 34.3 g/dl (32.0-36.0); MEAN CELL VOLUME 86.5 fl (80-96); MEAN PLT VOLUME 8.1 fl (7.5-11.1); MONO % 8.8 % (3.8-10.2); NEUT % 53.2 % (42.8-82.8); PLATELET COUNT 216 K/MM3 (134-434); RBC 3.22 M/mm3 (3.60-5.2); RDW 14.5 % (11.6-15.6); WHITE BLOOD COUNT 5.4 K/mm3 (4.0-10.0)
--- NOTE | 2019-05-15 09:10 | PN ---
Progress Note, Physician Chief Complaint: No weight yet today She states she is "swollen" yet there is no edema and no JVD - Current Medication List Current Medications: Active Medications Acetaminophen (Tylenol -) 650 mg PO Q4H PRN PRN Reason: PAIN Albuterol Sulfate (Ventolin Hfa Inhaler -) 1 puff IH Q4H PRN PRN Reason: Dyspnea Last Admin: 05/14/19 04:54 Dose: 1 puff Aspirin (Ecotrin -) 81 mg PO DAILY [facility] Last Admin: 05/14/19 09:27 Dose: 81 mg Atorvastatin Calcium (Lipitor -) 10 mg PO HS [facility] Last Admin: 05/14/19 21:58 Dose: 10 mg Carvedilol (Coreg -) 25 mg PO BID [facility] Last Admin: 05/14/19 21:58 Dose: 25 mg Heparin Sodium (Porcine) (Heparin -) 5,000 unit SQ TID [facility] Last Admin: 05/15/19 05:09 Dose: 5,000 unit Ketorolac Tromethamine (Toradol) 10 mg PO Q6HPO [facility] Stop: 05/19/19 11:59 Last Admin: 05/15/19 05:09 Dose: 10 mg Levothyroxine Sodium (Synthroid -) 25 mcg PO AM [facility] Last Admin: 05/15/19 06:18 Dose: 25 mcg Losartan Potassium (Cozaar -) 100 mg PO DAILY [facility] Pantoprazole Sodium (Protonix -) 20 mg PO DAILY [facility] Last Admin: 05/14/19 09:27 Dose: 20 mg Potassium Chloride (Potassium Chloride Oral Liquid) 20 meq PO DAILY [facility] Last Admin: 05/14/19 09:27 Dose: 20 meq - Objective Vital Signs: Vital Signs Temperature 97.9 F 05/15/19 05:00 Pulse Rate 59 L 05/15/19 05:00 Respiratory Rate 18 05/15/19 05:00 Blood Pressure 110/79 05/15/19 05:00 O2 Sat by Pulse Oximetry (%) 98 05/14/19 20:22 Constitutional: Yes: Calm Cardiovascular: Yes: Regular Rate and Rhythm, Other (no S3) Respiratory: Yes: CTA Bilaterally (no wheezing or rales) Gastrointestinal: Yes: Soft (NT) Edema: No Neurological: Yes: Alert, Oriented Labs: CBC, BMP 05/15/19 05:40 05/15/19 05:40 INR, PTT INR 1.03 (0.83-1.09) 05/13/19 17:59 - ....Imaging EKG: Image Reviewed (NSR, PVC-single and rare) Assessment/Plan cxr: clear lungs ecg: sr, no ischemic changes, prolonged qtc echo 08/2018 severe global hypokinesis of LV, EF 20-25%. RV tds. LA bl dilated. mild MR echo 11/2018 LV function mild to mod reduced, EF 40-45%, mild to mod global hypokinesis of LV, nl RV function 54yo F with PMH of HFREF idiopathic dilated cardiomyopathy , prior negative cath at [facility] [place] (last EF 40-45%), HTN, hypothyroidism, obesity, fibroid status post hysterectomy, asthma, anxiety, who presents with sob and chest pain. Atypical CP: - cp likely MSK, worse with moving arm, palpation - no signs acs or chf, trops negx2 - cath 08/2018 with non obs cad - monitor for now Chronic systolic HF: - no signs of acute failure - cardiac cath nonobstructive dz 08/2018 - cont home losartan, carvedilol 25 mg BID - D/W Dr. Peters, She typically becomes dehdydrated on Torsemide. Would resume Lasix when K+ normalizes HTN - cont home meds hypothyroidism - manage per primary Hypokalemia, abnl ecg: -ecg with long qtc, likely from low k. Replete k improved/ing; repeat ECG today
[2019-05-15] MEDS ORDERED: KCL 10 MEQ IVPB 10 MEQ/100 ML INFUS.BAG IVPB SCH (10:00)
[2019-05-15] MEDS: PANTOPRAZOLE 20 MG TABLET (FP) PO SCH (10:07)
[2019-05-15] MEDS: CARVEDILOL 25 MG TABLET (FP) PO SCH ×2 (10:07→21:55)
[2019-05-15] MEDS: ASPIRIN COATED 81 MG TABLET.EC PO SCH (10:07)
[2019-05-15] MEDS: POTASSIUM CHLORIDE ORAL LIQUID 20 MEQ/15 ML PO SCH (10:08)
--- NOTE | 2019-05-15 10:26 | PN ---
Physical Exam: SUBJECTIVE: Patient seen and examined feels her body is swollen but can not really tell upon exam denies fever , chills, sob.left side MSK pain. pt mixing her Diuretic medicine sometime take Lasix and some times Torosemide , Dr yoder spoke with Dr Staley and recommend Lasix as she get very dry on Torsemide. OBJECTIVE: Vital Signs Period Temp Pulse Resp BP Sys/Sigala Pulse Ox Last 24 Hr 97.9 F-98.4 F 53-74 16-18 106-135/60-87 96-99 GENERAL: AAOx3 in NAD HEAD: NC/AT EYES: EOMI, Conjunctiva clear, sclera anicteric ENT: moist mucous membrane NECK: Supple, no JVD LUNGS: CTA B/L, no crackles no wheezing no accessory muscle use.tenderness on left side ribs beneath the breast. HEART: RRR normal s1, s2, no M/R/G ABDOMEN: Soft, ND, NT, +BS 4 Q, no CVA Tenderness LOWER EXTREMITIES: no edema, +2DP pulse, NEUROLOGICAL: No focal deficit. Normal speech. gait not observed. PSYCHIATRIC: Cooperative. Good eye contact. Appropriate mood and affect. SKIN: Warm, dry, Laboratory Results - last 24 hr 05/14/19 05/15/19 05/15/19 12:12 05:40 05:40 WBC 5.4 RBC 3.22 L Hgb 9.5 L Hct 27.9 L MCV 86.5 MCH 29.6 MCHC 34.3 RDW 14.5 Plt Count 216 MPV 8.1 Absolute Neuts (auto) 2.9 Neutrophils % 53.2 Lymphocytes % 31.3 Monocytes % 8.8 Eosinophils % 6.0 H Basophils % 0.7 Nucleated RBC % 0 Sodium 140 141 Potassium 3.6 3.4 L Chloride 103 106 Carbon Dioxide 30 27 Anion Gap 7 L 9 BUN 28.9 H 29.0 H Creatinine 1.2 1.2 Est GFR (CKD-EPI)AfAm 60.17 60.17 Est GFR (CKD-EPI)NonAf 51.92 51.92 Random Glucose 112 H 110 H Calcium 8.9 8.8 Phosphorus 3.4 Magnesium 2.3 Total Bilirubin 0.3 AST 22 ALT 31 Alkaline Phosphatase 90 Total Protein 6.4 Albumin 2.8 L Active Medications Generic Name Dose Route Start Last Admin Trade Name Freq PRN Reason Stop Dose Admin Acetaminophen 650 mg 05/13/19 20:40 Tylenol - PO Q4H PRN PAIN Albuterol Sulfate 1 puff 05/13/19 21:16 05/14/19 04:54 Ventolin Hfa Inhaler - IH 1 puff Q4H PRN Administration Dyspnea Aspirin 81 mg 05/14/19 10:00 05/15/19 10:07 Ecotrin - PO 81 mg DAILY FRANNIE Administration Atorvastatin Calcium 10 mg 05/14/19 22:00 05/14/19 21:58 Lipitor - PO 10 mg HS FRANNIE Administration Carvedilol 25 mg 05/14/19 22:00 05/15/19 10:07 Coreg - PO 25 mg BID FRANNIE Administration Heparin Sodium (Porcine) 5,000 unit 05/14/19 06:00 05/15/19 05:09 Heparin - SQ 5,000 unit TID FRANNIE Administration Potassium Chloride 10 meq in 100 mls @ 100 mls/hr 05/15/19 10:00 05/15/19 10: 08 Potassium Chloride 10 Meq Premix Ivpb - IVPB 05/15/19 10:59 100 mls/hr Q60M FRANNIE Administration Ketorolac Tromethamine 10 mg 05/14/19 12:00 05/15/19 05:09 Toradol PO 05/19/19 11:59 10 mg Q6HPO FRANNIE Administration Levothyroxine Sodium 25 mcg 05/14/19 07:00 05/15/19 06:18 Synthroid - PO 25 mcg AM FRANNIE Administration Losartan Potassium 100 mg 05/15/19 11:45 Cozaar - PO DAILY FRANNIE Pantoprazole Sodium 20 mg 05/14/19 10:00 05/15/19 10:07 Protonix - PO 20 mg DAILY FRANNIE Administration Potassium Chloride 20 meq 05/14/19 10:00 05/15/19 10:08 Potassium Chloride Oral Liquid PO 20 meq DAILY FRANNIE Administration CBC, BMP 05/15/19 05:40 05/15/19 05:40 ASSESSMENT/PLAN: 54 y/o F, pmh of Dilated CM, CHF, negative cath at [place], HTN, H. Pylori- currently on abx, presents to the ED c/o of left-sided, localized chest pain of 1 day #Atypical chest Pain r/o ACS , most likely Musculoskeletal as pain worsening with movement and deep breathing . * Monitor on tele * EKG neg * CXR neg * Tramadol for pain, cont , * continue Aspirin * Trop neg x3 * cardiology consulted agree with the plan. 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 #Diarrhea r/o C. Diff * C-diff stool study- as pt was on recent abx for Hpylori * daily weights * PPI given, dc ranitidin(was on both at home) # Prolonged QTC 499 , correct K and repeat EKG ,monitor in Tele #Hypothyroidism * Continue home meds- synthroid * TSH levels-4.5 repeat out pt #GERARD, likely pre renal improved with fluids , cont to monitor Cr , hold diuretics per cardiology till K normalized. #Hyperlipidemia * Continue home meds- atorvastatin #DVT ppx * Heparin SQ Q8H FEN: * Low sodium diet # Dispo:possible DC in the next 24-48 hours if kidney function improve Visit type - Emergency Visit Emergency Visit: Yes ED Registration Date: 05/15/19 Care time: The patient presented to the Emergency Department on the above date and was hospitalized for further evaluation of their emergent condition. - New Patient This patient is new to me today: No - Critical Care Critical Care patient: No ATTENDING PHYSICIAN STATEMENT I saw and evaluated the patient. I reviewed the resident's note and discussed the case with the resident. I agree with the resident's findings and plan as documented. SUBJECTIVE: OBJECTIVE: ASSESSMENT AND PLAN:
--- NOTE | 2019-05-15 11:05 | PN ---
Teaching Attending Note Name of Resident: Uri Soto ATTENDING PHYSICIAN STATEMENT I saw and evaluated the patient. I reviewed the resident's note and discussed the case with the resident. I agree with the resident's findings and plan as documented. SUBJECTIVE: Ms Erazo says she is having some wheezing. Denies cp, sob, n/v. OBJECTIVE: Last Vital Signs Temp Pulse Resp BP Pulse Ox 36.9 C 65 20 135/77 98 05/15/19 14:00 05/15/19 14:00 05/15/19 14:00 05/15/19 14:00 05/14/19 20:22 Gen: nad, obese Pulm: ctab w/o w/r/r CV: rrr w/o m/r/g Abd: +bs, s/nt/nd Ext: no c/c/e CBC, BMP 05/15/19 05:40 05/15/19 05:40 ASSESSMENT AND PLAN: (1) Hypokalemia Assessment/Plan: -improved but still low -replace -recheck in am Code(s): E87.6 - HYPOKALEMIA (2) GERARD (acute kidney injury) Assessment/Plan: -improved with hydration -resolved Code(s): N17.9 - ACUTE KIDNEY FAILURE, UNSPECIFIED (3) CHF (congestive heart failure) Assessment/Plan: -not in exacerbation -monitor -start lasix tomorrow Code(s): I50.9 - HEART FAILURE, UNSPECIFIED Qualifiers: Heart failure type: systolic Heart failure chronicity: chronic Qualified Code(s): I50.22 - Chronic systolic (congestive) heart failure (4) Asthma Assessment/Plan: -continue home regimen Code(s): J45.909 - UNSPECIFIED ASTHMA, UNCOMPLICATED Qualifiers: Asthma severity: moderate persistent Asthma complication type: with acute exacerbation Qualified Code(s): J45.41 - Moderate persistent asthma with ( acute) exacerbation (5) Hypertension Assessment/Plan: -continue current regimen Code(s): I10 - ESSENTIAL (PRIMARY) HYPERTENSION Qualifiers: Hypertension type: essential hypertension Qualified Code(s): I10 - Essential (primary) hypertension (6) Hypothyroidism Assessment/Plan: -continue synthroid Code(s): E03.9 - HYPOTHYROIDISM, UNSPECIFIED (7) Obesity (BMI 30-39.9) Assessment/Plan: -outpatient weight loss program Code(s): E66.9 - OBESITY, UNSPECIFIED (8) Chest pain Assessment/Plan: -atypical -appreciate cardiology assistance -no further evaluation needed Code(s): R07.9 - CHEST PAIN, UNSPECIFIED Qualifiers: Chest pain type: intercostal pain Qualified Code(s): R07.82 - Intercostal pain Problem List - Problems (1) Hypokalemia Code(s): E87.6 - HYPOKALEMIA (2) GERARD (acute kidney injury) Code(s): N17.9 - ACUTE KIDNEY FAILURE, UNSPECIFIED (3) CHF (congestive heart failure) Code(s): I50.9 - HEART FAILURE, UNSPECIFIED Qualifiers: Heart failure type: systolic Heart failure chronicity: chronic Qualified Code(s): I50.22 - Chronic systolic (congestive) heart failure (4) Asthma Code(s): J45.909 - UNSPECIFIED ASTHMA, UNCOMPLICATED Qualifiers: Asthma severity: moderate persistent Asthma complication type: with acute exacerbation (5) Hypertension Code(s): I10 - ESSENTIAL (PRIMARY) HYPERTENSION Qualifiers: Hypertension type: essential hypertension Qualified Code(s): I10 - Essential (primary) hypertension (6) Hypothyroidism Code(s): E03.9 - HYPOTHYROIDISM, UNSPECIFIED (7) Obesity (BMI 30-39.9) Code(s): E66.9 - OBESITY, UNSPECIFIED (8) Chest pain Code(s): R07.9 - CHEST PAIN, UNSPECIFIED Qualifiers: Chest pain type: intercostal pain Qualified Code(s): R07.82 - Intercostal pain
[2019-05-15] MEDS: LOSARTAN POTASSIUM 50 MG TABLET (FP) PO SCH (12:55)
--- NOTE | 2019-05-15 13:51 | EKG ---
Test Reason : Blood Pressure : / mmHG Vent. Rate : 054 BPM Atrial Rate : 054 BPM P-R Int : 164 ms QRS Dur : 088 ms QT Int : 488 ms P-R-T Axes : 032 028 036 degrees QTc Int : 462 ms SINUS BRADYCARDIA WHEN COMPARED WITH ECG OF 14-MAY-2019 09:23, NO SIGNIFICANT CHANGE WAS FOUND Confirmed by FLORENTIN TAYLOR MD ([id number]) on 05/15/2019 1:51:36 PM Referred By: Confirmed By:FLORENTIN TAYLOR MD
[2019-05-15] MEDS: ALBUTEROL SO4 2.5/IPRATROPIUM 0.5 INH SOL 3 ML VIAL.NEB. NEB PRN (18:15)
[2019-05-15] MEDS: ATORVASTATIN CA 10 MG TABLET (FP) PO SCH (21:55)
[2019-05-16] MEDS: KETOROLAC TROMETHAMINE 10 MG TABLET PO SCH ×2 (00:59→05:57)
[2019-05-16] MEDS: ALBUTEROL SO4 2.5/IPRATROPIUM 0.5 INH SOL 3 ML VIAL.NEB. NEB PRN ×2 (01:01→09:44)
[2019-05-16 04:16] VITALS: BMI 35.9
[2019-05-16] MEDS ORDERED: PT OWN MED DRAWER 7, Y5N ONE (05:52)
[2019-05-16] MEDS: HEPARIN NA (PORCINE) 5,000 UNITS/ML 1ML VIAL SQ SCH (05:57)
[2019-05-16] MEDS: LEVOTHYROXINE NA 25 MCG TABLET (FP) PO SCH (05:59)
[2019-05-16 07:11] LABS: BLOOD UREA NITROGEN 21.2 mg/dL (7-18); CALCIUM 8.8 mg/dL (8.5-10.1); MAGNESIUM 2.3 mg/dL (1.8-2.4); PHOSPHOROUS 3.2 mg/dL (2.5-4.9); POTASSIUM 3.8 mmol/L (3.5-5.1)
[2019-05-16 07:32] LABS: BASO % 0.5 % (0-2.0); EOS % 5.8 % (0-4.5); HEMATOCRIT 26.7 % (32.4-45.2); HEMOGLOBIN 9.2 GM/dL (10.7-15.3); LYMPH % 26.8 % (8-40); MCH 29.8 pg (25.7-33.7); MCHC 34.2 g/dl (32.0-36.0); MEAN CELL VOLUME 86.9 fl (80-96); MEAN PLT VOLUME 8.2 fl (7.5-11.1); MONO % 7.6 % (3.8-10.2); NEUT % 59.3 % (42.8-82.8); PLATELET COUNT 198 K/MM3 (134-434); RBC 3.08 M/mm3 (3.60-5.2); RDW 14.6 % (11.6-15.6); WHITE BLOOD COUNT 5.6 K/mm3 (4.0-10.0)
[2019-05-16] MEDS: LOSARTAN POTASSIUM 50 MG TABLET (FP) PO SCH (09:20)
[2019-05-16] MEDS: CARVEDILOL 25 MG TABLET (FP) PO SCH (09:20)
[2019-05-16] MEDS: ASPIRIN COATED 81 MG TABLET.EC PO SCH (09:22)
[2019-05-16] MEDS: POTASSIUM CHLORIDE ORAL LIQUID 20 MEQ/15 ML PO SCH (09:22)
[2019-05-16] MEDS: PANTOPRAZOLE 20 MG TABLET (FP) PO SCH (09:22)
--- NOTE | 2019-05-16 10:29 | PN ---
Progress Note, Physician Chief Complaint: no acute distress TELE: NSR - Current Medication List Current Medications: Active Medications Acetaminophen (Tylenol -) 650 mg PO Q4H PRN PRN Reason: PAIN Albuterol Sulfate (Ventolin Hfa Inhaler -) 1 puff IH Q4H PRN PRN Reason: Dyspnea Last Admin: 05/14/19 04:54 Dose: 1 puff Albuterol/Ipratropium (Duoneb -) 1 amp NEB Q4H PRN PRN Reason: SHORTNESS OF BREATH Last Admin: 05/16/19 09:44 Dose: 1 amp Aspirin (Ecotrin -) 81 mg PO DAILY [facility] Last Admin: 05/16/19 09:22 Dose: 81 mg Atorvastatin Calcium (Lipitor -) 10 mg PO HS [facility] Last Admin: 05/15/19 21:55 Dose: 10 mg Carvedilol (Coreg -) 25 mg PO BID [facility] Last Admin: 05/16/19 09:20 Dose: 25 mg Heparin Sodium (Porcine) (Heparin -) 5,000 unit SQ TID [facility] Last Admin: 05/16/19 05:57 Dose: 5,000 unit Ketorolac Tromethamine (Toradol) 10 mg PO Q6HPO [facility] Stop: 05/19/19 11:59 Last Admin: 05/16/19 05:57 Dose: 10 mg Levothyroxine Sodium (Synthroid -) 25 mcg PO AM [facility] Last Admin: 05/16/19 05:59 Dose: 25 mcg Losartan Potassium (Cozaar -) 100 mg PO DAILY [facility] Last Admin: 05/16/19 09:20 Dose: 100 mg Pantoprazole Sodium (Protonix -) 20 mg PO DAILY [facility] Last Admin: 05/16/19 09:22 Dose: 20 mg Potassium Chloride (Potassium Chloride Oral Liquid) 20 meq PO DAILY [facility] Last Admin: 05/16/19 09:22 Dose: 20 meq - Objective Vital Signs: Vital Signs Temperature 97.6 F 05/16/19 06:00 Pulse Rate 56 L 05/16/19 06:00 Respiratory Rate 20 05/16/19 06:00 Blood Pressure 123/76 05/16/19 06:00 O2 Sat by Pulse Oximetry (%) 97 05/16/19 04:00 Constitutional: Yes: No Distress Cardiovascular: Yes: Regular Rate and Rhythm Respiratory: Yes: CTA Bilaterally Gastrointestinal: Yes: Soft Edema: No Neurological: Yes: Alert Labs: CBC, BMP 05/16/19 05:30 05/16/19 05:30 INR, PTT INR 1.03 (0.83-1.09) 05/13/19 17:59 - ....Imaging EKG: Image Reviewed Assessment/Plan Assessment/Plan cxr: clear lungs ecg: sr, no ischemic changes, prolonged qtc echo 08/2018 severe global hypokinesis of LV, EF 20-25%. RV tds. LA bl dilated. mild MR echo 11/2018 LV function mild to mod reduced, EF 40-45%, mild to mod global hypokinesis of LV, nl RV function 54yo F with PMH of HFREF idiopathic dilated cardiomyopathy , prior negative cath at [place] (last EF 40-45%), HTN, hypothyroidism, obesity, fibroid status post hysterectomy, asthma, anxiety, who presents with sob and chest pain. Atypical CP: - cp likely MSK, worse with moving arm, palpation - no signs acs or chf, trops negx2 - cath 08/2018 with non obs cad - monitor for now Chronic systolic HF: euvolemic - no signs of acute failure - cardiac cath nonobstructive dz 08/2018 - cont home losartan, carvedilol 25 mg BID - D/W Dr. Peters, She typically becomes dehdydrated on Torsemide. Thus, would discharge on usual home dose Lasix with K+ supplimentation and f/u as outpatient in 1 week. HTN - cont home meds hypothyroidism - manage per primary Hypokalemia, abnl ecg: -ecg with long qtc improved with K+ supplimentation. No sustained arrhythmias noted several days on tele
[2019-05-16 10:48] VITALS: BP 118/68; PULSE 63; TEMP 98
--- NOTE | 2019-05-16 11:07 | DS ---
Physical Examination Vital Signs: Vital Signs Temperature 36.6 C 05/16/19 10:00 Pulse Rate 63 05/16/19 10:00 Respiratory Rate 20 05/16/19 10:00 Blood Pressure 118/68 05/16/19 10:00 O2 Sat by Pulse Oximetry (%) 97 05/16/19 04:00 Constitutional: Yes: No Distress, Calm, Obese Cardiovascular: Yes: Regular Rate and Rhythm. No: Gallop, Murmur, Rub Respiratory: Yes: Regular, CTA Bilaterally. No: Rales, Rhonchi, Wheezes Gastrointestinal: Yes: Normal Bowel Sounds, Soft. No: Distention, Tenderness Extremities: Yes: WNL Edema: No Labs: CBC, BMP 05/16/19 05:30 05/16/19 05:30 Discharge Summary Reason For Visit: CHEST PAIN,HYPOKALEMIA Current Active Problems Epigastric pain (Acute) Hypokalemia (Acute) Hospital Course: (1) Hypokalemia Code(s): E87.6 - HYPOKALEMIA (2) GERARD (acute kidney injury) Code(s): N17.9 - ACUTE KIDNEY FAILURE, UNSPECIFIED (3) CHF (congestive heart failure) Code(s): I50.9 - HEART FAILURE, UNSPECIFIED Qualifiers: Heart failure type: systolic Heart failure chronicity: chronic Qualified Code(s): I50.22 - Chronic systolic (congestive) heart failure (4) Asthma Code(s): J45.909 - UNSPECIFIED ASTHMA, UNCOMPLICATED Qualifiers: Asthma severity: moderate persistent Asthma complication type: with acute exacerbation Qualified Code(s): J45.41 - Moderate persistent asthma with ( acute) exacerbation (5) Hypertension Code(s): I10 - ESSENTIAL (PRIMARY) HYPERTENSION Qualifiers: Hypertension type: essential hypertension Qualified Code(s): I10 - Essential (primary) hypertension (6) Hypothyroidism Code(s): E03.9 - HYPOTHYROIDISM, UNSPECIFIED (7) Obesity (BMI 30-39.9) Code(s): E66.9 - OBESITY, UNSPECIFIED (8) Chest pain Code(s): R07.9 - CHEST PAIN, UNSPECIFIED Qualifiers: Chest pain type: intercostal pain Qualified Code(s): R07.82 - Intercostal pain Ms Erazo is a pleasant 54 year old female who comes in with GERARD and hypokalemia secondary to dehydration. She was admitted to telemetry. She was hydrated and the GERARD resolved. Her potassium was replaced without difficulty. She was monitored on telemetry and had no arrhythmia secondary to hypokalemia. She was seen by cardiology and is now safe to restart her home lasix. This was sent to the pharmacy along with potassium supplementation. Her diarrhea resolved prior to presentation. She is safe for discharge home. 35 minutes spent in preparation for this discharge Condition: Stable - Instructions Diet, Activity, Other Instructions: resume previous diet and activity Referrals: Tori Peters MD [Staff Physician] - Delia Urbina MD [Primary Care Provider] - Disposition: HOME - Home Medications Comprehensive Discharge Medication List: Ambulatory Orders Aspirin [Aspirin EC] 81 mg PO DAILY 11/12/18 Ergocalciferol (Vitamin D2) [Vitamin D2] 50,000 unit PO WEEKLY 11/12/18 Ferrous Sulfate 325 mg PO BID 11/12/18 Levothyroxine [Synthroid -] 25 mcg PO DAILY 11/12/18 Pantoprazole Sodium [Protonix -] 20 mg PO DAILY 11/12/18 Atorvastatin Ca [Lipitor] 10 mg PO DAILY 01/16/19 Losartan Potassium 100 mg PO DAILY 01/23/19 Ranitidine HCl 300 mg PO HS 03/12/19 Carvedilol [Coreg -] 25 mg PO BID 05/13/19 Albuterol Sulfate Inhaler - [Ventolin HFA Inhaler -] 1 - 2 inh PO PRN PRN #30 inhaler 05/16/19 Furosemide [Lasix -] 40 mg PO DAILY #30 tablet 05/16/19 Potassium Chloride [K-Dur -] 20 meq PO DAILY #30 tablet.er 05/16/19
== END 2019-05-16 11:44 | disposition home or self-care (01) | DRG 469 ==
LOC: JER 15:33 → JERBED 19:12 → J4W 05-14 18:42 → OBSVTOIN 05-15 14:58
PROVIDERS: ADMIT Internal Medicine; ATTEND Internal Medicine
DX: N17.9 Acute kidney failure, unspecified (principal); I11.0 Hypertensive heart disease with heart failure; I50.22 Chronic systolic (congestive) heart failure; R07.89 Other chest pain; I42.8 Other cardiomyopathies; E03.9 Hypothyroidism, unspecified; E66.9 Obesity, unspecified; J45.909 Unspecified asthma, uncomplicated; F41.9 Anxiety disorder, unspecified; E86.0 Dehydration; E87.6 Hypokalemia; N63.0 Unspecified lump in unspecified breast; Z68.34 Body mass index [BMI] 34.0-34.9, adult; E78.5 Hyperlipidemia, unspecified; R19.7 Diarrhea, unspecified
CPT/HCPCS: 36415; 71045-TC-FY; 80048; 80053; 82272; 82550; 83690; 83735; 83880; 84100; 84132; 84443; 84484; 85025; 85610; 86850; 86900; 86901; 93005; 93010; 94640; 99285-25; G0378; J1644; J7030

== ENCOUNTER 2019-08-06 10:52 | Inpatient (IN) | payer OTHER ==
--- NOTE | 2019-08-06 12:30 | PDOC ---
History of Present Illness - General Chief Complaint: Injury Stated Complaint: FALL Time Seen by Provider: 08/06/19 11:09 - History of Present Illness Initial Comments: 08/06/19 14:10 54 yo F with a hx of CHF (last echo 11/2018; LVEF 40-45% with mild to moderate global hypokinesis of LV), HTN, HLD, h, pylori infection, hx of ETOH and cocaine abuse (last use of both "many years ago"), hypothyroidism, and anemia presents to the emergency department s/p syncope at approximately 12 am today. Per the patient, she has had lightheadedness, room spinning sensation, and increased sweating for the previous 2 days. She presented to her PMD yesterday. Currently, she concluded her cefdinir for an ear infection on the right side ( started on 07/29/2019). At approximately midnight, she walked to her bathroom. Her last memory before "blacking out" was sitting on the toilet. She awoken at approximately 2 am on the floor with the following complaints: left sided headache, left face pain, left shoulder pain, left elbow pain, left hip pain, lower back pain, and left knee pain. In addition, she had concurrent SOB since 2 am. She had 2x episodes of vomiting after her syncope that were non bloody and non billious. Endorses the following on ROS: nausea, headache, diarrhea. Denies the following: fever, chest pain, dysuria, hematuria, hematochezia, and leg swelling. Allergies: NKDA Shx: Hysterectomy Past History - Past Medical History Allergies/Adverse Reactions: Allergies Allergy/AdvReac Type Severity Reaction Status Date / Time No Known Allergies Allergy Verified 05/13/19 15:44 Home Medications: Ambulatory Orders Aspirin [Aspirin EC] 81 mg PO DAILY 11/12/18 Ergocalciferol (Vitamin D2) [Vitamin D2] 50,000 unit PO WEEKLY 11/12/18 Ferrous Sulfate 325 mg PO BID 11/12/18 Levothyroxine [Synthroid -] 25 mcg PO DAILY 11/12/18 Pantoprazole Sodium [Protonix -] 20 mg PO DAILY 11/12/18 Atorvastatin Ca [Lipitor] 10 mg PO DAILY 01/16/19 Losartan Potassium 100 mg PO DAILY 01/23/19 Ranitidine HCl 300 mg PO HS 03/12/19 Carvedilol [Coreg -] 25 mg PO BID 05/13/19 Albuterol Sulfate Inhaler - [Ventolin HFA Inhaler -] 1 - 2 inh PO PRN PRN #30 inhaler 05/16/19 Furosemide [Lasix -] 40 mg PO DAILY #30 tablet 05/16/19 Potassium Chloride [K-Dur -] 20 meq PO DAILY #30 tablet.er 05/16/19 Anemia: Yes (iron deficiency) Asthma: Yes Cancer: No Cardiac Disorders: Yes (HFrEF, Iriopathic, dilated cardiomyopathy, [place] [facility] [place] CVA: No COPD: No CHF: Yes Dementia: No Diabetes: No GI Disorders: Yes (Ulcerative colitis) Disorders: No HTN: Yes Hypercholesterolemia: Yes Liver Disease: No Seizures: No Thyroid Disease: Yes (Hypothyroidism) - Surgical History Abdominal Surgery: Yes (Hysterectomy) Appendectomy: No Cardiac Surgery: No Cholecystectomy: No Lung Surgery: No Neurologic Surgery: No Orthopedic Surgery: No - Immunization History Immunization Up to Date: Yes - Psycho Social/Smoking Cessation Hx Smoking Status: No Smoking History: Never smoked Have you smoked in the past 12 months: No Number of Cigarettes Smoked Daily: 2 If you are a former smoker, when did you quit?: 2000 Information on smoking cessation initiated: No Hx Alcohol Use: No Drug/Substance Use Hx: No Substance Use Type: None Hx Substance Use Treatment: No Review of Systems - Review of Systems Able to Perform ROS?: Yes Is the patient limited Maori proficient: No *Physical Exam - Vital Signs Last Vital Signs Temp Pulse Resp BP Pulse Ox 97.9 F 86 24 H 108/68 98 08/06/19 11:25 08/06/19 11:25 08/06/19 11:25 08/06/19 11:25 08/06/19 11:25 ED Treatment Course - LABORATORY CBC & Chemistry Diagram: 08/06/19 12:55 08/06/19 12:55 Medical Decision Making - Medical Decision Making 08/06/19 15:26 Patient's EKG reads as follows: ventricular rate 69 bpm, HI is 146 ms, QRS is 84 ms, QTc is 490ms. NSR without ST elevation or depression with new TWI compared to 05/2019. Patient 08/06/19 15:29 Discharge - Discharge Information Condition: Stable - Follow up/Referral Referrals: Delia Urbina MD [Primary Care Provider] - - Patient Discharge Instructions - Post Discharge Activity
[2019-08-06] MEDS ORDERED: ACETAMINOPHEN 1000 MG/100 ML VIAL (NON FORMULARY) IVPB ONE (12:31)
[2019-08-06] MEDS ORDERED: ACETAMINOPHEN INJECTION 100 ML IVPB ONE (12:43)
--- NOTE | 2019-08-06 13:04 | PDOC ---
Attending Attestation - Resident Resident Name: Seth Shell - ED Attending Attestation I have performed the following: I have examined & evaluated the patient, The case was reviewed & discussed with the resident, I agree w/resident's findings & plan, Exceptions are as noted - HPI HPI: 08/06/19 13:02 54 F with h/o dilated CM, CHF, negative cath at [place], HTN, hypothyroidism , asthma, presenting to ED with syncopal episode last night. Pt reports fainting around midnight and waking up approx 2 hours later. Does not know if she hit her head or not. Now complaining of GONZALES, neck pain, diffuse body pain. - Physicial Exam PE: 08/06/19 13:03 GENERAL: Awake, alert, and fully oriented, in no acute distress. HEAD: No signs of trauma EYES: PERRLA, EOMI, sclera anicteric, conjunctiva clear ENT: Auricles normal inspection, hearing grossly normal, nares patent, oropharynx clear without exudates. Moist mucosa NECK: Nontender, no stepoffs, Normal ROM, supple, no lymphadenopathy, JVD, or masses LUNGS: Breath sounds equal, clear to auscultation bilaterally. No wheezes, and no crackles HEART: Regular rate and rhythm, normal S1 and S2, no murmurs, rubs or gallops ABDOMEN: Soft, nontender, normoactive bowel sounds. No guarding, no rebound. No masses EXTREMITIES: + L shoulder TTP, L hip TTP, no obvious deformities NEUROLOGICAL: Cranial nerves II through XII intact. 5/5 strength and sensation in all extremities, Normal speech, normal gait, normal cerebellar function SKIN: Warm, Dry, normal turgor, no rashes or lesions noted. - Medical Decision Making 08/06/19 13:04 54 F with syncope. EKG shows NSR. No evidence of arrhythmia. New TWI in V2-V5. - Labs, cardiac enzymes - CTs, XRs 08/06/19 15:15 Trop negative x1 Labs notable for GERARD 500cc fluid bolus given
[2019-08-06 13:11] LABS: BASO % 0.6 % (0-2.0); EOS % 1.4 % (0-4.5); HEMATOCRIT 34.8 % (32.4-45.2); HEMOGLOBIN 11.3 GM/dL (10.7-15.3); LYMPH % 19.5 % (8-40); MCH 28.1 pg (25.7-33.7); MCHC 32.4 g/dl (32.0-36.0); MEAN CELL VOLUME 86.7 fl (80-96); MEAN PLT VOLUME 8.2 fl (7.5-11.1); MONO % 8.1 % (3.8-10.2); NEUT % 70.4 % (42.8-82.8); PLATELET COUNT 277 K/MM3 (134-434); RBC 4.01 M/mm3 (3.60-5.2); RDW 15.3 % (11.6-15.6); WHITE BLOOD COUNT 12.2 K/mm3 (4.0-10.0)
[2019-08-06 13:43] LABS: ALBUMIN 3.6 g/dl (3.4-5.0); BILIRUBIN,TOTAL 0.6 mg/dL (0.2-1); BLOOD UREA NITROGEN 36.4 mg/dL (7-18); CALCIUM 9.4 mg/dL (8.5-10.1); CREATININE 2.7 mg/dL (0.55-1.3); POTASSIUM 3.6 mmol/L (3.5-5.1)
[2019-08-06 13:52] LABS: N-TERMINAL BNP 806.5 pg/ml (5-125)
[2019-08-06 14:54] LABS: INR 1.01 (0.83-1.09); PROTHROMBIN TIME (PATIENT) 11.9 SEC (9.7-13.0)
[2019-08-06] MEDS ORDERED: morphine CARPU-JECT 2 MG/1 ML DISP.SYRIN IVPUSH ONE (15:15)
[2019-08-06] MEDS ORDERED: SODIUM CHLORIDE 500 ML IV STA (15:18)
[2019-08-06] MEDS ORDERED: MORPHINE SULFATE 2 MG/ML VIAL ONE ×2 (15:30→20:16)
--- NOTE | 2019-08-06 17:36 | HP ---
CHIEF COMPLAINT: syncope PCP: Dr. Osborn HISTORY OF PRESENT ILLNESS: 54F w/ pmhx of CHF (last echo 11/25 showed EF 40-45%), HTN/HLD, hypothyroidism, anemia presents in the ED after a syncopal episode. States over the past 4 days she has been feeling "not well" complaining of profuse sweating, generalized weakness and body aches after which she proceeded to see her PCP and was told it was due to anxiety. At 12am last night, she woke to use the bathroom, sat on the toilet, then had a syncopal episode. States she woke up at 2am, on the floor with pain the L side of her body soiled in her urine and stool. States she was unsure if she hit her head and the fall was unwitnessed as she lives alone. She was able to get up from the floor and proceed to the bed. States she had some shortness of breath upon awakening. At baseline, she uses a walker to help with ambulation. Admit to generalized L sided body pain. Of note, he was recently on PO abx for medication due to an ear infection, but admits to not taking it as prescribed 4 days ago. Denies f/c, n/v, chest pain, sob, ER course was notable for: (1) VS stable, WBC 12.2, Na 135, Cr 2.7, trops neg x1, BNP 800s (2) EKG showed NSR, new TWIs in V2-V5, QTc 490 ms (3) Recent Travel: Denies PAST MEDICAL HISTORY: As per HPI PAST SURGICAL HISTORY: hysterectomy cyst removal fibroid removal Social History: Smoking: Former smoker quit 10 years ago, previously smoked 2 PPD since 14 years of age Alcohol: Denies Drugs: Denies Reitred, used to work in the [employer] Allergies No Known Allergies Allergy (Verified 05/13/19 15:44) HOME MEDICATIONS: Home Medications Medication Instructions Recorded Aspirin [Aspirin EC] 81 mg PO DAILY 11/12/18 Ergocalciferol (Vitamin D2) 50,000 unit PO WEEKLY 11/12/18 [Vitamin D2] Ferrous Sulfate 325 mg PO BID 11/12/18 Levothyroxine [Synthroid -] 25 mcg PO DAILY 11/12/18 Pantoprazole Sodium [Protonix -] 20 mg PO DAILY 11/12/18 Atorvastatin Ca [Lipitor] 10 mg PO DAILY 01/16/19 Losartan Potassium 100 mg PO DAILY 01/23/19 Ranitidine HCl 300 mg PO HS 03/12/19 Carvedilol [Coreg -] 25 mg PO BID 05/13/19 Albuterol Sulfate Inhaler - 1 - 2 inh PO PRN PRN #30 inhaler 05/16/19 [Ventolin HFA Inhaler -] Furosemide [Lasix -] 40 mg PO DAILY #30 tablet 05/16/19 Potassium Chloride [K-Dur -] 20 meq PO DAILY #30 tablet.er 05/16/19 REVIEW OF SYSTEMS CONSTITUTIONAL: Absent: fever, chills, diaphoresis, generalized weakness, malaise, loss of appetite, weight change HEENT: Absent: rhinorrhea, nasal congestion, throat pain, throat swelling, difficulty swallowing, mouth swelling, ear pain, eye pain, visual changes CARDIOVASCULAR: syncope Absent: chest pain, palpitations, irregular heart rate, lightheadedness, peripheral edema RESPIRATORY: shortness of breath Absent: cough, dyspnea with exertion, orthopnea, wheezing, stridor, hemoptysis GASTROINTESTINAL: Absent: abdominal pain, abdominal distension, nausea, vomiting, diarrhea, constipation, melena, hematochezia GENITOURINARY: Absent: dysuria, frequency, urgency, hesitancy, hematuria, flank pain, genital pain MUSCULOSKELETAL: Absent: myalgia, arthralgia, joint swelling, back pain, neck pain SKIN: Absent: rash, itching, pallor HEMATOLOGIC/IMMUNOLOGIC: Absent: easy bleeding, easy bruising, lymphadenopathy, frequent infections ENDOCRINE: Absent: unexplained weight gain, unexplained weight loss, heat intolerance, cold intolerance NEUROLOGIC: +LE weakness Absent: headache, focal weakness or paresthesias, dizziness, unsteady gait, seizure, mental status changes, bladder or bowel incontinence PSYCHIATRIC: Absent: anxiety, depression, suicidal or homicidal ideation, hallucinations. PHYSICAL EXAMINATION Vital Signs - 24 hr 08/06/19 08/06/19 08/06/19 10:55 11:25 15:28 Temperature 98.1 F 97.9 F 98.4 F Pulse Rate 72 Pulse Rate [ 86 Left Radial] Respiratory 16 24 H Rate Blood Pressure 93/66 Blood Pressure 108/68 98/63 [Right Arm] O2 Sat by Pulse 96 98 99 Oximetry (%) GENERAL: Mildly uncomfortable female, NAD. Cooperative. HEENT: AT/NC. EOMI. MMM. Facial symmetry noted. NECK: Normal range of motion, supple without lymphadenopathy, JVD, or masses. LUNGS: CTA B/L. B/l expiratory wheezes heard. No crackles noted. Symmetric chest rise. HEART: RRR. Normal S1, S2. No murmurs noted. ABDOMEN: Obese, nontender. Mildly distended. No obvious masses/deformities. Normoactive bowel sounds. MUSCULOSKELETAL: Limited range of motion in RLE due to pain. 5/5 muscle strength b/l UE. EXTREMITIES: No peripheral edema noted. NEUROLOGICAL: Cranial nerves II-XII intact. Normal speech. PSYCHIATRIC: Cooperative. Good eye contact. Appropriate mood and affect. SKIN: Warm, dry, normal turgor, no rashes or lesions noted, normal capillary refill. Laboratory Results - last 24 hr 08/06/19 08/06/19 08/06/19 12:55 12:55 12:55 WBC 12.2 H RBC 4.01 Hgb 11.3 Hct 34.8 D MCV 86.7 MCH 28.1 MCHC 32.4 RDW 15.3 Plt Count 277 D MPV 8.2 Absolute Neuts (auto) 8.6 H Neutrophils % 70.4 Lymphocytes % 19.5 D Monocytes % 8.1 Eosinophils % 1.4 Basophils % 0.6 Nucleated RBC % 0 PT with INR INR Sodium 135 L Potassium 3.6 Chloride 99 Carbon Dioxide 27 Anion Gap 9 BUN 36.4 H Creatinine 2.7 H Est GFR (CKD-EPI)AfAm 22.57 Est GFR (CKD-EPI)NonAf 19.48 Random Glucose 89 Calcium 9.4 Total Bilirubin 0.6 AST 12 L ALT 25 Alkaline Phosphatase 85 Creatine Kinase 71 Troponin I < 0.02 B-Natriuretic Peptide 806.5 H Total Protein 8.0 Albumin 3.6 TSH 2.04 08/06/19 12:55 WBC RBC Hgb Hct MCV MCH MCHC RDW Plt Count MPV Absolute Neuts (auto) Neutrophils % Lymphocytes % Monocytes % Eosinophils % Basophils % Nucleated RBC % PT with INR 11.90 INR 1.01 Sodium Potassium Chloride Carbon Dioxide Anion Gap BUN Creatinine Est GFR (CKD-EPI)AfAm Est GFR (CKD-EPI)NonAf Random Glucose Calcium Total Bilirubin AST ALT Alkaline Phosphatase Creatine Kinase Troponin I B-Natriuretic Peptide Total Protein Albumin TSH IMAGING: * L knee xray: Arthritic changes. No fx/subluxation, blastic/lytic changes. * L hip/pelvis xray: No acute hip pathology. * Head CT: No acute pathology. Large defect in nasal septum anteriorly. * Facial bones CT: Unremarkable. * L shoulder xray: Neg. * CT C-spine: C3-C4 mild to mod degenerative disease w/ prominent anterior spondylosis * CT T-spine: Unremarkable. * CT L-spine: Minimal anterior/compression deformity of L3 superior endplate, likely chronic. Mild compression of L5 superior endplate, likely recent--MRI of L spine needed for confirmation and to eval bone marrow edema. Partially included low-attenuation mass-like density in the R side pelvis measuring 2.8 cm for which pelvic u/s is recommended ASSESSMENT/PLAN: 54F w/ pmhx of CHF (last echo 11/25 showed EF 40-45%), HTN/HLD, hypothyroidism, anemia presents in the ED after a syncopal episode. #Syncope; r/o seizure vs. vasovagal -Given hx of syncopal episode with LOC and urinary/bowel incontinence, will need assess for seizure. Neuro consulted. -Seizure/Fall precautions -Orthostatic neg -Echo/Carotid duplex ordered #GERARD; Cr 2.7, likely pre-renal due to volume depletion as pt has had poor oral intake for 3-4 days -NS 500cc bolus given x1 in ED -will continue IV hydration -Avoid nephrotoxic agents; hold home Lasix, Losartan -repeat BMP in AM #TWI; EKG showed new TWI -No active chest pain on exam; +reproducible chest tenderness. -Trops neg x1; will cont to trend -Cardio consulted #Hx of systolic CHF; Pt appears to be euvolemic on exam; no significant crackles , pedal edema, or JVD noted. CXR unremarkable. Will hold home Lasix and Losartan for now in setting of GERARD. -Gentle IV hydration #HTN/HLD; Cont home meds: ASA 81, Coreg 25 BID, Lipitor 10 #Hypothyroidism; Cont home meds: Synthroid 25 mcg #KAUSHAL; Cont home med: Ferrous Sulfate 325 BID #R Pelvic mass; incidental finding on CT scan. Recommend pelvic u/s #Prophylaxis GI: Cont home Protonix 20 DVT: SQH FEN -NS @ 100 -recheck lytes in AM -Low fat Dispo -admit to inpatient tele Visit type - Emergency Visit Emergency Visit: Yes ED Registration Date: 08/06/19 Care time: The patient presented to the Emergency Department on the above date and was hospitalized for further evaluation of their emergent condition. - New Patient This patient is new to me today: Yes Date on this admission: 08/07/19 - Critical Care Critical Care patient: No ATTENDING PHYSICIAN STATEMENT I saw and evaluated the patient. I reviewed the resident's note and discussed the case with the resident. I agree with the resident's findings and plan as documented. SUBJECTIVE: OBJECTIVE: ASSESSMENT AND PLAN:
[2019-08-06] MEDS: SODIUM CHLORIDE 1,000 ML IV SCH (18:00)
[2019-08-06] MEDS: ASPIRIN COATED 81 MG TABLET.EC PO SCH (18:15)
[2019-08-06] MEDS: PANTOPRAZOLE 20 MG TABLET (FP) PO SCH (18:15)
[2019-08-06] MEDS ORDERED: ASPIRIN COATED 81 MG TABLET.EC ONE (18:19)
[2019-08-06] MEDS ORDERED: PANTOPRAZOLE 20 MG TABLET (FP) PO ONE (18:21)
--- NOTE | 2019-08-06 18:44 | PN ---
Teaching Attending Note Name of Resident: Dionne Galo ATTENDING PHYSICIAN STATEMENT I saw and evaluated the patient. I reviewed the resident's note and discussed the case with the resident. I agree with the resident's findings and plan as documented. SUBJECTIVE: complains of back pain s/p syncope/fall. no preceeding CP/ palpitations. Uncertain head injury. Refers LOC for at least 2 hours. OBJECTIVE: Afberile, Hemodynamically Stable Last Vital Signs Temp Pulse Resp BP Pulse Ox 98.4 F 86 24 H 98/63 99 08/06/19 15:28 08/06/19 11:25 08/06/19 11:25 08/06/19 15:28 08/06/19 15:28 HEENT - Atramatic, Normocephalic. Heart - S1, S2, RRR Lungs - clear to auscultation Abdomen - soft, non-tender. Bowel Sounds normal. Extremities - Mild edema. No calf tenderness. Pain on flexion of LEs bilaterally. Neurovascularly intact. Neuro - AAO x 3. SERGIO. CN intact. Pain on movement of LEs. Laboratory Results - last 24 hr 08/06/19 08/06/19 08/06/19 12:55 12:55 12:55 WBC 12.2 H RBC 4.01 Hgb 11.3 Hct 34.8 D MCV 86.7 MCH 28.1 MCHC 32.4 RDW 15.3 Plt Count 277 D MPV 8.2 Absolute Neuts (auto) 8.6 H Neutrophils % 70.4 Lymphocytes % 19.5 D Monocytes % 8.1 Eosinophils % 1.4 Basophils % 0.6 Nucleated RBC % 0 PT with INR INR Sodium 135 L Potassium 3.6 Chloride 99 Carbon Dioxide 27 Anion Gap 9 BUN 36.4 H Creatinine 2.7 H Est GFR (CKD-EPI)AfAm 22.57 Est GFR (CKD-EPI)NonAf 19.48 Random Glucose 89 Calcium 9.4 Total Bilirubin 0.6 AST 12 L ALT 25 Alkaline Phosphatase 85 Creatine Kinase 71 Troponin I < 0.02 B-Natriuretic Peptide 806.5 H Total Protein 8.0 Albumin 3.6 TSH 2.04 08/06/19 12:55 WBC RBC Hgb Hct MCV MCH MCHC RDW Plt Count MPV Absolute Neuts (auto) Neutrophils % Lymphocytes % Monocytes % Eosinophils % Basophils % Nucleated RBC % PT with INR 11.90 INR 1.01 Sodium Potassium Chloride Carbon Dioxide Anion Gap BUN Creatinine Est GFR (CKD-EPI)AfAm Est GFR (CKD-EPI)NonAf Random Glucose Calcium Total Bilirubin AST ALT Alkaline Phosphatase Creatine Kinase Troponin I B-Natriuretic Peptide Total Protein Albumin TSH Current Medications Generic Name Dose Route Start Last Admin Trade Name Freq PRN Reason Stop Dose Admin Aspirin 81 mg 08/06/19 17:45 08/06/19 18:15 Ecotrin - PO 81 mg DAILY FRANNIE Administration Atorvastatin Calcium 10 mg 08/06/19 22:00 Lipitor - PO HS FRANNIE Carvedilol 25 mg 08/06/19 22:00 Coreg - PO BID FRANNIE Ergocalciferol 50,000 unit 08/10/19 10:00 Drisdol - PO Mo@1000 FRANNIE Ferrous Sulfate 325 mg 08/06/19 22:00 Feosol - PO BID FRANNIE Heparin Sodium (Porcine) 5,000 unit 08/06/19 22:00 Heparin - SQ TID FRANNIE Sodium Chloride 1,000 mls @ 100 mls/hr 08/06/19 16:45 08/06/19 18:00 Normal Saline - IV 100 mls/hr ASDIR FRANNIE Administration Levothyroxine Sodium 25 mcg 08/07/19 07:00 Synthroid - PO AM FRANNIE Morphine Sulfate 2 mg 08/06/19 16:32 Morphine Sulfate IVPUSH Q4H PRN PAIN LEVEL 6-10 Pantoprazole Sodium 20 mg 08/06/19 17:45 08/06/19 18:15 Protonix - PO 20 mg DAILY FRANNIE Administration Home Medications Medication Instructions Recorded Aspirin [Aspirin EC] 81 mg PO DAILY 11/12/18 Ergocalciferol (Vitamin D2) 50,000 unit PO WEEKLY 11/12/18 [Vitamin D2] Ferrous Sulfate 325 mg PO BID 11/12/18 Levothyroxine [Synthroid -] 25 mcg PO DAILY 11/12/18 Pantoprazole Sodium [Protonix -] 20 mg PO DAILY 11/12/18 Atorvastatin Ca [Lipitor] 10 mg PO DAILY 01/16/19 Losartan Potassium 100 mg PO DAILY 01/23/19 Ranitidine HCl 300 mg PO HS 03/12/19 Carvedilol [Coreg -] 25 mg PO BID 05/13/19 Albuterol Sulfate Inhaler - 1 - 2 inh PO PRN PRN #30 inhaler 05/16/19 [Ventolin HFA Inhaler -] Furosemide [Lasix -] 40 mg PO DAILY #30 tablet 05/16/19 Potassium Chloride [K-Dur -] 20 meq PO DAILY #30 tablet.er 05/16/19 ASSESSMENT AND PLAN: 54 year old female with history of chronic systolic CHF (EF 40-45%), HTN, HLD, Hypothyroidism, Chronic KAUSHAL, presents to the ED with L sided body pain after a syncopal episode while on the toilet, awoke on bathroom floor incontinent of stool and urine. Background history 4 days of feeling generally unwell with diaphoresis, myalgia, lethargy. No preceding CP/palpitations/lightheadedness. Unclear if any head injury. L knee xray: Arthritic changes. No fx/subluxation. L hip/pelvis xray: No acute hip pathology. Head CT: No acute pathology. Large defect in nasal septum anteriorly. Facial bones CT: Unremarkable. L shoulder xray: no acute findings. CT C-spine: C3-C4 mild to mod degenerative disease w/ prominent anterior spondylosis CT T-spine: Unremarkable. CT L-spine: Minimal anterior/compression deformity of L3 superior endplate, likely chronic. Mild compression of L5 superior endplate, likely recent. Partially included low-attenuation mass-like density in the R side pelvis measuring 2.8 cm for which pelvic u/s is recommended 1. Syncope, etiology unclear, vasovagal versus seizure versus arrhythmia Orthostatic vitals negative ECG - SR, T waves anterolateral leads. CP free. Imaging as above. Echo, Carotid Duplex pending. Neurology and Cardiology consulted. Seizure precautions Telemonitoring PT 2. GERARD secondary to dehydration Gentle iV fluids Renal US requested. 3. Chronic Systolic CHF - no evidence of exacerbation. On gentle IV hydration for GERARD. Will monitor closely. Lasix held. 4. HTN - ARB held due to GERARD. Continue Coreg. 5. HLD - CK 71. continue Statin. 6. Hypothyroidism - continue Levothyroxine. 7. Iron Deficiency Anemia, etiology unclear. Continue FeSO4 supplementation. 8. Incidental finding of possible pelvic mass on CT - recommend US, ordered. 9. GERD - Continue PPI
[2019-08-06] MEDS: MORPHINE SULFATE 2 MG/ML VIAL IVPUSH PRN (20:29)
[2019-08-06] MEDS ORDERED: HEPARIN NA (PORCINE) 5,000 UNITS/ML 1ML VIAL SQ SCH (22:00)
[2019-08-06 22:47] VITALS: BMI 34.8
[2019-08-06] MEDS: CARVEDILOL 25 MG TABLET (FP) PO SCH (22:56)
[2019-08-06] MEDS: ATORVASTATIN CA 10 MG TABLET (FP) PO SCH (22:56)
[2019-08-06] MEDS: FERROUS SO4 325 MG TABLET (FP) PO SCH (22:56)
[2019-08-06] MEDS: HEPARIN NA (PORCINE) 5,000 UNITS/ML 1ML VIAL SQ SCH (22:56)
[2019-08-07] MEDS ORDERED: ALBUTEROL SO4 0.083% IH SOL 2.5 MG/3 ML VIAL.NEB. NEB ONE (00:15)
[2019-08-07] MEDS: MORPHINE SULFATE 2 MG/ML VIAL IVPUSH PRN ×4 (00:44→21:39)
[2019-08-07] MEDS ORDERED: LIDOCAINE 5% TOPICAL PATCH TP ONE (05:44)
[2019-08-07] MEDS: LEVOTHYROXINE NA 25 MCG TABLET (FP) PO SCH (06:07)
[2019-08-07 08:08] LABS: HEMATOCRIT 26.2 % (32.4-45.2); HEMOGLOBIN 9.3 GM/dL (10.7-15.3); MCHC 35.5 g/dl (32.0-36.0); MEAN CELL VOLUME 87.5 fl (80-96); MEAN PLT VOLUME 8.4 fl (7.5-11.1); PLATELET COUNT 209 K/MM3 (134-434); RBC 2.99 M/mm3 (3.60-5.2); RDW 15.1 % (11.6-15.6); WHITE BLOOD COUNT 6.9 K/mm3 (4.0-10.0)
[2019-08-07 08:27] LABS: BLOOD UREA NITROGEN 27.7 mg/dL (7-18); CALCIUM 7.7 mg/dL (8.5-10.1); CREATININE 1.5 mg/dL (0.55-1.3); MAGNESIUM 1.7 mg/dL (1.8-2.4); PHOSPHOROUS 3.7 mg/dL (2.5-4.9); POTASSIUM 3.3 mmol/L (3.5-5.1)
[2019-08-07] MEDS ORDERED: POTASSIUM CHLORIDE TABS 20 MEQ TABLET.ER (FP) PO ONE ×2 (08:33→16:00)
[2019-08-07] MEDS ORDERED: MAGNESIUM SULF 50% (8.12 MEQ/2 ML-1 GM VIAL) IVPB ONE (08:37)
--- NOTE | 2019-08-07 09:06 | EKG ---
Test Reason : Blood Pressure : / mmHG Vent. Rate : 069 BPM Atrial Rate : 069 BPM P-R Int : 146 ms QRS Dur : 084 ms QT Int : 458 ms P-R-T Axes : 053 030 088 degrees QTc Int : 490 ms NORMAL SINUS RHYTHM T WAVE ABNORMALITY, CONSIDER ANTERIOR ISCHEMIA PROLONGED QT ABNORMAL ECG WHEN COMPARED WITH ECG OF 15-MAY-2019 09:59, T WAVE INVERSION NOW EVIDENT IN ANTERIOR LEADS Confirmed by FLORENTIN TAYLOR MD ([id number]) on 08/07/2019 9:06:24 AM Referred By: Confirmed By:FLORENTIN TAYLOR MD
[2019-08-07] MEDS: HEPARIN NA (PORCINE) 5,000 UNITS/ML 1ML VIAL SQ SCH ×2 (09:44→21:41)
[2019-08-07] MEDS: FERROUS SO4 325 MG TABLET (FP) PO SCH ×2 (09:44→21:41)
[2019-08-07] MEDS: ASPIRIN COATED 81 MG TABLET.EC PO SCH (09:44)
[2019-08-07] MEDS: PANTOPRAZOLE 20 MG TABLET (FP) PO SCH (09:44)
[2019-08-07] MEDS: CARVEDILOL 25 MG TABLET (FP) PO SCH ×2 (09:44→21:40)
[2019-08-07] MEDS ORDERED: ALBUTEROL SO4 8 GM HFA INHALER IH PRN ×5 (10:32→14:27)
--- NOTE | 2019-08-07 10:40 | CON.CARD ---
Consult Consult Specialty:: Cardiology Referred by:: DR. Husain Reason for Consultation:: syncope - History of Present Illness Chief Complaint: syncope x 2 History of Present Illness: 54 F dilated, nicm with EF 40-45%, HTN, hx of hypokalemia and prolonged QT in that setting presents to ER after 2 syncopal episodes at home. Recent ear infxn, given cephalosporing. Woke up to go to bathroom and woke up on lisandro 2 hours later; no recollection of events. Finally got up to walk, and had recurrent syncope. In ER, ARF. Low BP. BUN /creat 36/2/7- baseline creat 1 Is on chronic Lasix 40mg daily. ECG: NSR, anterior TWI, prolonged QT - History Source History Provided By: Patient - Past Medical History Cardio/Vascular: Yes: CHF, HTN Pulmonary: Yes: Asthma Gastrointestinal: Yes: Ulcerative Colitis Renal/: Yes: Renal Inusuff ...LMP: 01/09/19 ...: No - Past Surgical History Past Surgical History: Yes: Tubal Ligation - Alcohol/Substance Use Hx Alcohol Use: No History of Substance Use: reports: None - Smoking History Smoking history: Never smoked Have you smoked in the past 12 months: No Aproximately how many cigarettes per day: 2 If you are a former smoker, when did you quit?: 2000 - Social History ADL: Independent History of Recent Travel: No Home Medications - Allergies Allergies/Adverse Reactions: Allergies Allergy/AdvReac Type Severity Reaction Status Date / Time No Known Allergies Allergy Verified 05/13/19 15:44 - Home Medications Home Medications: Ambulatory Orders Aspirin [Aspirin EC] 81 mg PO DAILY 11/12/18 Ergocalciferol (Vitamin D2) [Vitamin D2] 50,000 unit PO WEEKLY 11/12/18 Ferrous Sulfate 325 mg PO BID 11/12/18 Levothyroxine [Synthroid -] 25 mcg PO DAILY 11/12/18 Pantoprazole Sodium [Protonix -] 20 mg PO DAILY 11/12/18 Atorvastatin Ca [Lipitor] 10 mg PO DAILY 01/16/19 Losartan Potassium 100 mg PO DAILY 01/23/19 Ranitidine HCl 300 mg PO HS 03/12/19 Carvedilol [Coreg -] 25 mg PO BID 05/13/19 Albuterol Sulfate Inhaler - [Ventolin HFA Inhaler -] 1 - 2 inh PO PRN PRN #30 inhaler 05/16/19 Furosemide [Lasix -] 40 mg PO DAILY #30 tablet 05/16/19 Potassium Chloride [K-Dur -] 20 meq PO DAILY #30 tablet.er 05/16/19 Family Medical History Family History: Unremarkable Review of Systems - Review of Systems Constitutional: reports: Weakness Eyes: reports: No Symptoms HENT: reports: No Symptoms Neck: reports: No Symptoms Cardiovascular: reports: No Symptoms Respiratory: reports: No Symptoms Gastrointestinal: reports: No Symptoms Genitourinary: reports: No Symptoms Musculoskeletal: reports: No Symptoms Integumentary: reports: No Symptoms Neurological: reports: Syncope Endocrine: reports: No Symptoms Hematology/Lymphatic: reports: No Symptoms Psychiatric: reports: No Symptoms - Risk Factors Known Risk Factors: Yes: Hypertension Vital Signs: Vital Signs Temperature 97.8 F 08/07/19 08:03 Pulse Rate 66 08/07/19 08:03 Respiratory Rate 18 08/07/19 08:06 Blood Pressure 114/70 08/07/19 08:03 O2 Sat by Pulse Oximetry (%) 98 08/07/19 08:06 Constitutional: Yes: No Distress Eyes: Yes: Conjunctiva Clear Respiratory: Yes: CTA Bilaterally Gastrointestinal: Yes: Soft, Abdomen, Obese Cardiovascular: Yes: Regular Rate and Rhythm JVD: No Carotid Bruit: No Heart Sounds: Yes: S1, S2 (rrr; no m/r/g) Edema: No Neurological: Yes: Alert, Oriented ...Motor Strength: WNL - Other Data Labs, Other Data: CBC, BMP 08/07/19 07:00 08/07/19 07:00 INR, PTT INR 1.01 (0.83-1.09) 08/06/19 12:55 Troponin, BNP 08/06/19 08/06/19 12:55 21:30 Troponin I < 0.02 < 0.02 B-Natriuretic Peptide 806.5 H Troponin, BNP 08/06/19 08/06/19 12:55 21:30 Troponin I < 0.02 < 0.02 B-Natriuretic Peptide 806.5 H Prior Cardiac Procedures: Cardiac Catheterization (non-obstx cath) Imaging - Results Chest X-ray: Image Reviewed Cat Scan: Report Reviewed EKG: Image Reviewed Assessment/Plan IMP: Recurrent syncope in setting of ARF, hypotension Non-ischemic CM Hypokalemia Prolonged QT REC: 1. Agree w/ hydration cautiously; hold Lasix. Renal fx improving. Daily BMP 2. Hold ARB in this setting of ARF and hypotension 3. Cont tele, however strongly suspect syncope secondary to orthostatic hypotension and ARF 4. Replete K+ and Mg2+ to 4/2 respectively 5. Daily ECG to monitor QTc and nonspecific T wave changes, which occur in setting of electrolyte derangements 6. Echo 7. EEG. Will follow Thank you
--- NOTE | 2019-08-07 11:04 | ECHO ---
Name: LIBRADO ALVAREZ Exam:Adult Echocardiogram Study Date: 08/07/2019 08:46 AM Age: 54 yrs Reason For Study: SYNCOPE Height: 64 in Weight: 200 lb BSA: 2.0 m2 MMode/2D Measurements & Calculations IVSd: 0.94 cm Ao root diam: 2.4 cm LVIDd: 5.2 cm LA dimension: 3.0 cm LVIDs: 3.5 cm LVPWd: 0.86 cm EDV(Teich): 130.3 ml LVOT diam: 2.0 cm ESV(Teich): 49.4 ml LAV (MOD-bp): 54.0 ml Doppler Measurements & Calculations MV E max dany: 104.6 cm/sec Ao V2 max: 191.4 cm/sec MV A max dany: 111.6 cm/sec Ao max P.7 mmHg MV E/A: 0.94 MV dec time: 0.29 sec ALFONZO(V,D): 1.9 cm2 LV V1 max P.3 mmHg TR max dany: 220.6 cm/sec LV V1 max: 115.5 cm/sec TR max P.5 mmHg PA V2 max: 93.7 cm/sec PI end-d dany: 71.9 cm/sec PA max P.5 mmHg Med Peak E' Dany: 5.8 cm/sec Med E/e': 18.0 Lat Peak E' Dany: 7.0 cm/sec Lat E/e': 14.9 Left Ventricle Left ventricular systolic function is normal. Ejection Fraction = 50-55%. Right Ventricle The right ventricle is normal in size and function. Atria Normal left and right atrial size and function. Mitral Valve The mitral valve is normal in structure and function. There is no mitral valve stenosis. There is mil d mitral regurgitation. Tricuspid Valve The tricuspid valve is normal in structure and function. There is mild tricuspid regurgitation. Right ventricular systolic pressure is normal. Aortic Valve Mild focal calcification on the aortic valve. No hemodynamically significant valvular aortic stenosis . No aortic regurgitation is present. Pulmonic Valve The pulmonic valve is not well seen, but is grossly normal. There is no pulmonic valvular stenosis. Great Vessels The aortic root is normal size. Pericardium/Pleura There is no pericardial effusion. Interpretation Summary Left ventricular systolic function is normal. Ejection Fraction = 50-55%. The right ventricle is normal in size and function. There is mild mitral regurgitation. There is mild tricuspid regurgitation. Right ventricular systolic pressure is normal. Mild focal calcification on the aortic valve. There is no pericardial effusion. MD Gaviria *Sugey 08/07/2019 11:04 AM
--- NOTE | 2019-08-07 12:32 | PN ---
Teaching Attending Note Name of Resident: Mayte Cole ATTENDING PHYSICIAN STATEMENT I saw and evaluated the patient. I reviewed the resident's note and discussed the case with the resident. I agree with the resident's findings and plan as documented. SUBJECTIVE: complains of ongoing back pain s/p syncope/fall, shooting down bilateral LEs, L> R. No bladder or bowel dysfunction. No preceding CP/ palpitations prior to Syncope. Uncertain head injury. Refers LOC for at least 2 hours. OBJECTIVE: Afebrile, Hemodynamically Stable Last Vital Signs Temp Pulse Resp BP Pulse Ox 97.8 F 66 18 114/70 98 08/07/19 08:03 08/07/19 08:03 08/07/19 08:06 08/07/19 08:03 08/07/19 08:06 Heart - S1, S2, RRR Lungs - clear to auscultation Abdomen - soft, non-tender. Bowel Sounds normal. Extremities - Mild edema. No calf tenderness. Pain at rest on flexion of LEs bilaterally. Neurovascularly intact. Neuro - AAO x 3. SERGIO. CN intact. Pain on movement of LEs. Laboratory Results - last 24 hr 08/06/19 08/06/19 08/06/19 12:55 12:55 12:55 WBC 12.2 H RBC 4.01 Hgb 11.3 Hct 34.8 D MCV 86.7 MCH 28.1 MCHC 32.4 RDW 15.3 Plt Count 277 D MPV 8.2 Absolute Neuts (auto) 8.6 H Neutrophils % 70.4 Lymphocytes % 19.5 D Monocytes % 8.1 Eosinophils % 1.4 Basophils % 0.6 Nucleated RBC % 0 PT with INR INR Sodium 135 L Potassium 3.6 Chloride 99 Carbon Dioxide 27 Anion Gap 9 BUN 36.4 H Creatinine 2.7 H Est GFR (CKD-EPI)AfAm 22.57 Est GFR (CKD-EPI)NonAf 19.48 Random Glucose 89 Calcium 9.4 Phosphorus Magnesium Total Bilirubin 0.6 AST 12 L ALT 25 Alkaline Phosphatase 85 Creatine Kinase 71 Troponin I < 0.02 B-Natriuretic Peptide 806.5 H Total Protein 8.0 Albumin 3.6 TSH 2.04 08/06/19 08/06/19 08/07/19 12:55 21:30 07:00 WBC 6.9 RBC 2.99 L Hgb 9.3 L Hct 26.2 L D MCV 87.5 MCH 31.0 D MCHC 35.5 RDW 15.1 Plt Count 209 D MPV 8.4 Absolute Neuts (auto) Neutrophils % Lymphocytes % Monocytes % Eosinophils % Basophils % Nucleated RBC % PT with INR 11.90 INR 1.01 Sodium Potassium Chloride Carbon Dioxide Anion Gap BUN Creatinine Est GFR (CKD-EPI)AfAm Est GFR (CKD-EPI)NonAf Random Glucose Calcium Phosphorus Magnesium Total Bilirubin AST ALT Alkaline Phosphatase Creatine Kinase Troponin I < 0.02 B-Natriuretic Peptide Total Protein Albumin TSH 08/07/19 07:00 WBC RBC Hgb Hct MCV MCH MCHC RDW Plt Count MPV Absolute Neuts (auto) Neutrophils % Lymphocytes % Monocytes % Eosinophils % Basophils % Nucleated RBC % PT with INR INR Sodium 137 Potassium 3.3 L Chloride 106 Carbon Dioxide 22 Anion Gap 9 BUN 27.7 H Creatinine 1.5 H Est GFR (CKD-EPI)AfAm 45.95 Est GFR (CKD-EPI)NonAf 39.64 Random Glucose 123 H Calcium 7.7 L Phosphorus 3.7 Magnesium 1.7 L Total Bilirubin AST ALT Alkaline Phosphatase Creatine Kinase Troponin I B-Natriuretic Peptide Total Protein Albumin TSH Current Medications Generic Name Dose Route Start Last Admin Trade Name Freq PRN Reason Stop Dose Admin Albuterol Sulfate 1 - 2 puff 08/07/19 11:02 Ventolin Hfa Inhaler - IH PRN PRN Dyspnea Aspirin 81 mg 08/06/19 17:45 08/07/19 09:44 Ecotrin - PO 81 mg DAILY FRANNIE Administration Atorvastatin Calcium 10 mg 08/06/19 22:00 08/06/19 22:56 Lipitor - PO 10 mg HS FRANNIE Administration Carvedilol 25 mg 08/06/19 22:00 08/07/19 09:44 Coreg - PO 25 mg BID FRANNIE Administration Ergocalciferol 50,000 unit 08/10/19 10:00 Drisdol - PO Mo@1000 FRANNIE Ferrous Sulfate 325 mg 08/06/19 22:00 08/07/19 09:44 Feosol - PO 325 mg BID FRANNIE Administration Heparin Sodium (Porcine) 5,000 unit 08/06/19 22:00 08/07/19 09:44 Heparin - SQ 5,000 unit BID FRANNIE Administration Sodium Chloride 1,000 mls @ 100 mls/hr 08/06/19 16:45 08/06/19 18:00 Normal Saline - IV 100 mls/hr ASDIR FRANNIE Administration Levothyroxine Sodium 25 mcg 08/07/19 07:00 08/07/19 06:07 Synthroid - PO 25 mcg AM FRANNIE Administration Miscellaneous 1 each 08/07/19 22:00 Lidoderm Patch Removal MC DAILY@2200 FRANNIE Morphine Sulfate 2 mg 08/06/19 16:32 08/07/19 10:21 Morphine Sulfate IVPUSH 2 mg Q4H PRN Administration PAIN LEVEL 6-10 Pantoprazole Sodium 20 mg 08/06/19 17:45 08/07/19 09:44 Protonix - PO 20 mg DAILY FRANNIE Administration Potassium Chloride 40 meq 08/07/19 16:00 K-Dur - PO 08/07/19 16:01 ONCE ONE Home Medications Medication Instructions Recorded Aspirin [Aspirin EC] 81 mg PO DAILY 11/12/18 Ergocalciferol (Vitamin D2) 50,000 unit PO WEEKLY 11/12/18 [Vitamin D2] Ferrous Sulfate 325 mg PO BID 11/12/18 Levothyroxine [Synthroid -] 25 mcg PO DAILY 11/12/18 Pantoprazole Sodium [Protonix -] 20 mg PO DAILY 11/12/18 Atorvastatin Ca [Lipitor] 10 mg PO DAILY 01/16/19 Losartan Potassium 100 mg PO DAILY 01/23/19 Ranitidine HCl 300 mg PO HS 03/12/19 Carvedilol [Coreg -] 25 mg PO BID 05/13/19 Albuterol Sulfate Inhaler - 1 - 2 inh PO PRN PRN #30 inhaler 05/16/19 [Ventolin HFA Inhaler -] Furosemide [Lasix -] 40 mg PO DAILY #30 tablet 05/16/19 Potassium Chloride [K-Dur -] 20 meq PO DAILY #30 tablet.er 05/16/19 ASSESSMENT AND PLAN: 54 year old female with history of chronic systolic CHF (EF 40-45%), HTN, HLD, Hypothyroidism, Chronic KAUSHAL, presents to the ED with L sided body pain after a syncopal episode while on the toilet, awoke on bathroom floor incontinent of stool and urine. Background history 4 days of feeling generally unwell with diaphoresis, myalgia, lethargy. No preceding CP/palpitations/lightheadedness. Unclear if any head injury. L knee xray: Arthritic changes. No fx/subluxation. L hip/pelvis xray: No acute hip pathology. Head CT: No acute pathology. Large defect in nasal septum anteriorly. Facial bones CT: Unremarkable. L shoulder xray: no acute findings. CT C-spine: C3-C4 mild to mod degenerative disease w/ prominent anterior spondylosis CT T-spine: Unremarkable. CT L-spine: Minimal anterior/compression deformity of L3 superior endplate, likely chronic. Mild compression of L5 superior endplate, likely recent. Partially included low-attenuation mass-like density in the R side pelvis measuring 2.8 cm for which pelvic u/s is recommended 1. Syncope, etiology unclear, vasovagal versus seizure versus arrhythmia Orthostatic vitals negative ECG - SR, T waves anterolateral leads, prolonged QTc. CP free. Imaging as above. Echo normal, Carotid Duplex shows no hemodynamically significant stenosis EEG pending. Neurology and Cardiology consulted. Seizure precautions Telemonitoring PT 2. GERARD secondary to dehydration Improving with gentle IV fluids Renal US - no obstruction. 3. Acute compression fracture L5 with L4/5 and L5/S1 disc bulge with foraminal stenosis Back Pain with shoting pains down both legs and mobility limited by pain. No bladder/bowel dysfunction. NeuroSurgery (Dr. Juarez) consulted for above findings 4. Chronic Systolic CHF - no evidence of exacerbation. On gentle IV hydration for GERARD. Will monitor closely. Lasix held. 5. HTN - ARB held due to GERARD. Continue Coreg. 6. HLD - CK 71. continue Statin. 7. Hypothyroidism - continue Levothyroxine. 8. Iron Deficiency Anemia, etiology unclear. Continue FeSO4 supplementation. 10. Incidental finding of possible pelvic mass on CT - Pelvic US does not show mass or cyst. Discussed with Dr. Danielle Dixon re: need for further imaging - he thinks this is likely ovarian cyst and recommends Transvaginal US 11. GERD - Continue PPI 12. Hypokalemia/Hypomagnesemia - repleted. DVT Px - Heparin SQ
--- NOTE | 2019-08-07 12:46 | CONSULT ---
Consult - text type - Consultation Consultation Note: NEUROLOGY CONSULT GREATLY APPRECIATED: Events reviewed and discussed with ALAN Cortez. Patient examined by me with her mother at the bedside This 54 yo RH woman with four adult children is on disability since diagnosis of "heart failure" Aug 2018. PMHX: Iron anemia, GERD, HLD, HTN, asthma, "migraines," hypothyroidism, prior cocaine/ETOH/smoker, S/P hysterectomy. On: ASA 81, Vit D, FeSO4 325 BID, levothyroxine, pantoprazole, atorvastatin, losartan, ranitidine, carvedilol 25 BID, albuterol, furosemide, KCL. History of migraines since age 19 without warning describes as bitemporal "pounding" with photophobia, phonophobia, kinesiophobia, dizziness, nausea. These occur almost "every other day," not relieved with use of Tylenol, however at one point was using Imitrex with good effect. She describes multiple hospitalizations due to severe headaches, however has not seen a neurologist. Last week, she noted "R ear pain" and surrounding R hemicranium discomfort, saw ENT Dr. Chen and was prescribed ear drops for inner ear infection. 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 Prior to admission, she felt "clammy, "dizzy". At 12AM, she walked to bathroom to urinate and had loss of consciousness, awakening two hours later and "dazed. " She noted she had soiled herself with urine. When she attempted to ambulate to bedroom she self lightheaded, flushed and again passed out. Around 4 AM she noted dizziness and measured BP at "60 something." She called her mother to bring her to hospital where systolic BP of 80 was noted. FH++ 28 year daughter with headaches and growing pains Review of systems sig for severe leg cramps during her pregnancies and attributed to severe anemia, which somewhat improved after hysterectomy. Many years of insomnia, worse recently attributed to heart failure. Associated radiating pains from arm into fingers L > R worse at nighttime, however AM "weakness" and dropping things. Also many years of nocturnal "cramps " radiating down left leg awakening her from sleep. Multiple scans reviewed including CT of facial bones, head, C spine, hips/pelvis : Normal without acute pathology. Carotid duplex: Min intimal plaques without heme sig stenosis. ECHO normal study, EKG NSR Ct and MRI of LS spine (C-) reviewed: Some straightening of lumbar lordosis. Multilevel disc dessication. No central canal stenosis, Bulging discs at L45 and L5S1. B/L L5-S1. Min loss of disc height at L5 WITHOUT fracture or bone marrow edema. WBC= 12.2-> 6.9; MCV=- 86.7; H/H 11.3/34.8-> 9.3/26.2; CK= 71; Mg= 1.7; Phos= 3.7; TSH= 2.04 RAFAELA: 200 lbs. BP supine 89/57 sitting 126/76. Neck supple. Neg SLR. +/- Stanford' s on L. Neg Tinel's.No evidence of head trauma. Scrape L arm,bruise to L thigh. NEURO: Awake, alert, responsive. Ox X 3. CNII-CNXII: EOM full without nystagmus. Full chandra. No facial. Motor: No drift or tremor. Strength normal. Reflexes normal, except possibly reduced L AJ. Plantars silent. Coordination: No FTN dystaxia. Sensation: Feels vibration. Decreased pinprick L digits I,II,III. Gait: Pt declines at this time. Impression: Normal neurological exam. Syncope due to hypotension +/- Vasovagal factors. Doubt seizure Migraine Headaches/ Chronic daily headache syndrome L hemisyndrome possibly on basis of Restless Limbs syndrome. R/ O L CTS, Left LS radiculopathy Worsened by Toxic Metabolic Encephalopathy (? otitis media). R/ O UTI Suggest: IV fluids and replenish lytes. Check Fe++, TIBC, Ferritin, UA/C & S Orthostatic BP's. Can continue carvedilol 25 mg BID if BP allows for both HTN and migraine prophylaxis. Add topiramate 50 mg HS and gradually increase. Will Rx pain and RLS as out patient when BP is stabilized. Thank you very much, Enrique Ahn MD
--- NOTE | 2019-08-07 14:01 | PN ---
Physical Exam: SUBJECTIVE: Patient seen and examined. No acute events overnight. Continues to complain of L-sided body pain. No headaches, lightheadedness, chest pain, palpitations, SOB. OBJECTIVE: Vital Signs Period Temp Pulse Resp BP Sys/Sigala Pulse Ox Last 24 Hr 97.8 F-98.4 F 66-83 14-18 89-138/51-78 97-99 GENERAL: The patient is awake, alert, and fully oriented, in no acute distress. HEAD: Normal with no signs of trauma. EYES: PERRL, extraocular movements intact, sclera anicteric, conjunctiva clear. No ptosis. ENT: Ears normal, nares patent, oropharynx clear without exudates, moist mucous membranes. NECK: Trachea midline, full range of motion, supple. LUNGS: Breath sounds equal, clear to auscultation bilaterally, mild expiratory wheezes, no crackles, no accessory muscle use. HEART: Regular rate and rhythm, S1, S2 without murmur, rub or gallop. ABDOMEN: Soft, nontender, nondistended, normoactive bowel sounds, no guarding, no rebound, no hepatosplenomegaly, no masses. EXTREMITIES: 2+ pulses, warm, well-perfused, no edema. NEUROLOGICAL: Cranial nerves II through XII grossly intact. Normal speech, gait not observed. Limited ROM in LLE 2/2 pain. PSYCH: Normal mood, normal affect. SKIN: Warm, dry, normal turgor, no rashes or lesions noted Laboratory Results - last 24 hr CBC, BMP 08/07/19 07:00 08/07/19 07:00 Active Medications Albuterol Sulfate (Ventolin Hfa Inhaler -) 1 - 2 puff IH PRN PRN PRN Reason: Dyspnea Aspirin (Ecotrin -) 81 mg PO DAILY [facility] Last Admin: 08/07/19 09:44 Dose: 81 mg Atorvastatin Calcium (Lipitor -) 10 mg PO HS [facility] Last Admin: 08/06/19 22:56 Dose: 10 mg Carvedilol (Coreg -) 25 mg PO BID [facility] Last Admin: 08/07/19 09:44 Dose: 25 mg Ergocalciferol (Drisdol -) 50,000 unit PO Mo@1000 [facility] Ferrous Sulfate (Feosol -) 325 mg PO BID [facility] Last Admin: 08/07/19 09:44 Dose: 325 mg Heparin Sodium (Porcine) (Heparin -) 5,000 unit SQ BID [facility] Last Admin: 08/07/19 09:44 Dose: 5,000 unit Sodium Chloride (Normal Saline -) 1,000 mls @ 100 mls/hr IV ASDIR [facility] Last Admin: 08/06/19 18:00 Dose: 100 mls/hr Levothyroxine Sodium (Synthroid -) 25 mcg PO AM [facility] Last Admin: 08/07/19 06:07 Dose: 25 mcg Miscellaneous (Lidoderm Patch Removal) 1 each MC DAILY@2200 [facility] Morphine Sulfate (Morphine Sulfate) 2 mg IVPUSH Q4H PRN PRN Reason: PAIN LEVEL 6-10 Last Admin: 08/07/19 10:21 Dose: 2 mg Pantoprazole Sodium (Protonix -) 20 mg PO DAILY [facility] Last Admin: 08/07/19 09:44 Dose: 20 mg Potassium Chloride (K-Dur -) 40 meq PO ONCE ONE Stop: 08/07/19 16:01 ASSESSMENT/PLAN: 54F w/ pmhx of CHF (last echo 11/25 showed EF 40-45%), HTN, COPD, HLD, hypothyroidism, anemia presents s/p unwitnessed syncopal episode. #Syncope, etiology unclear. R/o vasovagal vs arrhythmia vs seizure CT/XR [facility]-imaging remarkable only for mild compression of L5 endplate. No other fx, no bleeding. Incidental mass in R pelvis EKG: NSR, T wave inversions in anterolateral leads, prolonged QTc Troponin neg x2 Echo: LV normal, EF: 50-55% Carotid US: no hemodynamically significant stenosis Orthostatics negative Cardiology consulted (Dr. Mayes), recommendations appreciated - Monitor on tele - Replete K+ and Mg2+ to 4/2 respectively - Daily EKG to monitor QTc and nonspecific T wave changes - Hold lasix and ARB in setting of ARF and hypotension - Suspect syncope 2/2 orthostatics and ARF Neuro consultated (Dr. Ahn), recommendations appreciated - F/u EEG, pending - IV fluids, replenish electrolytes - F/u iron studies - F/u UA, Urine cx, Utox - Frequent orthostatic BPs - Cont carvedilol mg BID if BP allows (both HTN and migraine ppx) - Consider adjunctive topiramate 50 mg HS and gradually increase Cont morphine 2mg IV Q4H for L-body pain Fall and seizure precautions Physicaly therapy evaluation #GERARD 2/2 dehydration Cr: 2.7 --> 1.5, trending down Improving with gentle hydration, will cont IV NS @ 100ml/hr Hold home lasix and losartan. Avoid nephrotoxic agents Renal/pelvic US: no obstruction. No masses Cont to monitor kidney function #Lumbar compression fracture CT L-spine: mild compression fracture L5 endplate Lumbar MRI: Mild acute L5 compression fx deformity, disc bulge to R L4/L5 and L5/S1 Pt endorses back pain with sharp pain shooting down BL legs, mobility limited 2/2 pain. Denies bladder/bowel dysfunction Neurosurgery (Dr. Juarez) consulted F/u lumbar MRI #Incidental finding of R pelvic mass on CT Pelvic US: no mass or cyst Per radiology, likely ovarian cyst. Recommend transvaginal US - f/u as outpatient #Chronic Systolic CHF Pt endorses NAVAS and orthopnea at baseline, no evidence of exacerbation Receiving gentle hydration for GERARD, closely monitor volume status Lasix and losartan held for GERARD #HTN Losartan being held for GERARD Cont home carvedilol 25mg BID #COPD Cont Nebs Q4H prn #HLD Cont home asa 81mg, lipitor 10mg daily #Hypothyroidism Cont home synthroid 25mcg daily #Iron deficiency anemia Hgb: 9.3 (baseline Cont home ferrous sulfate 325mg BID #GERD Cont home protonix 20mg daily #DVT ppx Heparin SQ TID #FEN Gentle hydration IV NS @ 100ML/HR Replete K+/Mg2+ to 4/2 respectively Low cholesterol diet #Dispo Monitor on tele Visit type - Emergency Visit Emergency Visit: No - New Patient This patient is new to me today: Yes Date on this admission: 08/07/19 - Critical Care Critical Care patient: No ATTENDING PHYSICIAN STATEMENT I saw and evaluated the patient. I reviewed the resident's note and discussed the case with the resident. I agree with the resident's findings and plan as documented. SUBJECTIVE: OBJECTIVE: ASSESSMENT AND PLAN:
[2019-08-07] MEDS: ALBUTEROL SO4 0.083% IH SOL 2.5 MG/3 ML VIAL.NEB. NEB PRN ×2 (14:25→20:15)
[2019-08-07] MEDS: SODIUM CHLORIDE 1,000 ML IV SCH (16:34)
--- NOTE | 2019-08-07 17:00 | PN ---
Progress Note (short form) - Note Progress Note: NEUROSURGERY CONSULT DICTATED Pt examined Chart reviewed CT reviewed/MRI reviewed h/o CHF (EF 40-45%) secondary to EtOH use?, HTN/HLD, hypothyroidism, anemia presents in the ED after a syncopal episode. Not feeling well x 4 days. c/o profuse sweating, generalized weakness and body ache. Had a syncopal episode with pain the L side of her body with B/B incontinence. No prior similar episode. LBP to L buttock and posterior thigh. PE: AF, VSS General- unremarkable, mildly obese CN- intact II- XII; Motor- 5/5 except L IP/Quad/TA /EHL 4+; Sensation- intact LT ; DTR- 2+; Back- tender L L4-5-S1 paraspinal region; + SLR on L at [address]- negative for bleed or fx; no HCP; no acute large infarct LS spine CT- L5-S1 DDD, mild L4-5 spondylolisthesis;mild L5 sup endplate depression LS spine MRI- L5-S1 DDD with facet hypertrophy; L5 sup endplate depression with vertebral mild edema on FSE; no marked stenosis; R > L mild L4-5 disc bulge Mild L5 superior endplate fx with L4-5 disc bulge Lumbar support PRN F/u LS spine x-rays in 2 week- expect mild vertebral L5 subsidence PT No neurosurgical intervention indicated nor recommended Muscle relaxant prn Pain meds prn If persistent pain consider pain management for EPSI Further syncope w/u per cardiology
--- NOTE | 2019-08-07 18:15 | CONS ---
DATE OF CONSULTATION: 08/07/2019 REQUESTING PHYSICIAN: Aaron Husain MD [facility] PROCESSOR: Torri Aguiar MD, Neurosurgery CHIEF COMPLAINT: Lower back pain with L5 vertebral fracture. HISTORY OF PRESENT ILLNESS: Patient is a 54-year-old right-handed female with a history of ETOH use with possible resultant CHF, hypertension, hypercholesterolemia, obesity, hypothyroid, anemia who presented to the emergency room after a syncopal episode. She stated that she had not been feeling well for about 4 days. She had been sweating with generalized weakness and body aches. She woke up in late night to go to the bathroom and lost consciousness. She found herself waking up with bowel and bladder incontinence. She had lower back pain radiating down her left buttock and posterior thigh. There was some subjective weakness as a result because of the pain. She has no headache, nausea, or vomiting. PAST MEDICAL HISTORY: Significant for congestive heart failure, ETOH abuse, hypertension, hypercholesterolemia, hypothyroidism, anemia. CURRENT MEDICATIONS: Include baby aspirin, morphine, Protonix, Synthroid, Drisdol. ALLERGIES: There are no known drug allergies. FAMILY HISTORY: Noncontributory. SOCIAL HISTORY: She does not smoke and only drinks alcohol periodically and socially. She does not work at this time. She lives at home with her family. REVIEW OF SYSTEMS: Otherwise negative for major constitutional, head, neck, cardiovascular, pulmonary, gastrointestinal, genitourinary, endocrinological, neurological, or psychological problems except for the above. FAMILY HISTORY: Significant for cardiac disease in her father who a couple of years ago because of heart attack. PHYSICAL EXAMINATION: Vital Signs: Temperature is 97.5, blood pressure 115/81 with a pulse rate of 62, O2 saturation 98% on room air. HEENT: Shows the patient to be normocephalic, atraumatic, anicteric. Neck: Supple with no nuchal rigidity. No carotid bruits. Coronary: Demonstrates regular rhythm. Lungs: Clear bilaterally. Abdomen: Benign but mildly obese. Extremities: Show no sign of DVT. Neurologic: She is awake, alert, and oriented x4. Cranial nerve examination is intact 2-12. Motor examination shows 5/5 strength except left iliopsoas, tibialis anterior, and quadriceps, which are 4+, which is pain limited. Sensory examination is intact to light touch. Deep tendon reflexes are 2+ throughout. There is no pathological or long-tract sign. CT scan of lumbar spine demonstrated mild L5 superior endplate depression. There is L5, S1 degenerative disk space narrowing. MRI of the lumbar spine demonstrated L5 superior endplate fracture with 15%-20% loss of vertebral body height. There is vertebral edema. There is an L4, 5 disk bulge, right greater than left with no marked central canal narrowing or stenosis. Facet hypertrophy is noted to L4, 5 and L5, S1 bilaterally. IMPRESSION: 1. L5 superior endplate fracture with L4, 5 broad-based disk bulge right greater than left. 2. L5, S1 degenerative disk space narrowing. 3. Obesity. 4. Congestive heart failure. 5. History of ethyl alcohol abuse. 6. Hypertension. 7. Hypothyroidism. RECOMMENDATIONS: Patient presents with a syncopal episode. She has fallen has some abrasion on her left arm. She also lost bowel and bladder control. CT scan of the head is negative for ischemic disk or mass lesion. CT scan of the lumbar spine demonstrated L5 superior endplate fracture. This is confirmed on MRI of the lumbar spine with hyperintensity on the fast spin echocardiogram images. The patient has likely sustained a vertebral fracture. Lumbar support with either abdominal binder or a belt is recommended for the next 3 months whenever she is out of bed. She should have flat and upright x-rays of the lumbar spine in 2 weeks to monitor the stature of the L5 vertebral body. Slight subsidence of the vertebral body at L5 is to be expected. If her pain persists, pain management consultation could be considered. I added Flexeril for muscle relaxation for her lower back pain and muscle spasm. The above was discussed with the patient and her mother at the bedside. All questions were answered. TORRI AGUIAR M.D. [id number]
[2019-08-07] MEDS: ATORVASTATIN CA 10 MG TABLET (FP) PO SCH (21:40)
[2019-08-07] MEDS: CYCLOBENZAPRINE HCL 10 MG TABLET (FP) PO SCH (21:40)
[2019-08-07] MEDS ORDERED: LIDOCAINE PATCH REMOVAL MC SCH (22:00)
[2019-08-08] MEDS: SODIUM CHLORIDE 1,000 ML IV SCH (05:59)
[2019-08-08] MEDS: MORPHINE SULFATE 2 MG/ML VIAL IVPUSH PRN ×2 (06:00→10:02)
[2019-08-08] MEDS: CYCLOBENZAPRINE HCL 10 MG TABLET (FP) PO SCH ×4 (06:01→21:35)
[2019-08-08] MEDS: LEVOTHYROXINE NA 25 MCG TABLET (FP) PO SCH (06:01)
--- NOTE | 2019-08-08 06:37 | PN ---
Progress Note, Physician Chief Complaint: feeling well Walked to bathroom, no dizziness TELE: NSR, no arrhythmias Renal function back to baseline. Repeat echo yesterday, EF basically normalized. - Current Medication List Current Medications: Active Medications Albuterol Sulfate (Ventolin 0.083% Nebulizer Soln -) 1 amp NEB Q4H PRN PRN Reason: SHORT OF BREATH/WHEEZING Last Admin: 08/07/19 20:15 Dose: 1 amp Albuterol Sulfate (Ventolin Hfa Inhaler -) 2 puff IH Q4H PRN PRN Reason: SHORTNESS OF BREATH Albuterol Sulfate (Ventolin Hfa Inhaler -) 1 puff IH Q4H PRN PRN Reason: SHORTNESS OF BREATH Aspirin (Ecotrin -) 81 mg PO DAILY [facility] Last Admin: 08/07/19 09:44 Dose: 81 mg Atorvastatin Calcium (Lipitor -) 10 mg PO HS [facility] Last Admin: 08/07/19 21:40 Dose: 10 mg Carvedilol (Coreg -) 25 mg PO BID [facility] Last Admin: 08/07/19 21:40 Dose: 25 mg Cyclobenzaprine HCl (Flexeril -) 5 mg PO TID [facility] Last Admin: 08/08/19 06:01 Dose: 5 mg Ergocalciferol (Drisdol -) 50,000 unit PO Mo@1000 [facility] Ferrous Sulfate (Feosol -) 325 mg PO BID [facility] Last Admin: 08/07/19 21:41 Dose: 325 mg Heparin Sodium (Porcine) (Heparin -) 5,000 unit SQ BID [facility] Last Admin: 08/07/19 21:41 Dose: 5,000 unit Sodium Chloride (Normal Saline -) 1,000 mls @ 100 mls/hr IV ASDIR [facility] Last Admin: 08/08/19 05:59 Dose: 100 mls/hr Levothyroxine Sodium (Synthroid -) 25 mcg PO AM [facility] Last Admin: 08/08/19 06:01 Dose: 25 mcg Miscellaneous (Lidoderm Patch Removal) 1 each MC DAILY@2200 [facility] Last Admin: 08/07/19 21:42 Dose: Not Given Morphine Sulfate (Morphine Sulfate) 2 mg IVPUSH Q4H PRN PRN Reason: PAIN LEVEL 6-10 Last Admin: 08/08/19 06:00 Dose: 2 mg Pantoprazole Sodium (Protonix -) 20 mg PO DAILY [facility] Last Admin: 08/07/19 09:44 Dose: 20 mg - Objective Vital Signs: Vital Signs Temperature 98.2 F 08/08/19 05:14 Pulse Rate 60 08/08/19 05:14 Respiratory Rate 20 08/08/19 05:14 Blood Pressure 110/65 08/08/19 05:14 O2 Sat by Pulse Oximetry (%) 98 08/07/19 21:00 Constitutional: Yes: No Distress Cardiovascular: Yes: Regular Rate and Rhythm Respiratory: Yes: CTA Bilaterally (no rales.) Gastrointestinal: Yes: Soft, Abdomen, Obese Edema: No Neurological: Yes: Alert, Oriented Labs: CBC, BMP 08/07/19 07:00 08/07/19 07:00 INR, PTT INR 1.01 (0.83-1.09) 08/06/19 12:55 - ....Imaging EKG: Image Reviewed Assessment/Plan IMP: Recurrent syncope in setting of ARF, hypotension Non-ischemic CM Hypokalemia Prolonged QT REC: 1. Agree w/ hydration cautiously; hold Lasix. Renal fx improving. Daily BMP 2. Hold ARB in this setting of ARF and hypotension; resume when renal function stable. 3. Cont tele, however strongly suspect syncope secondary to orthostatic hypotension and ARF 4. Replete K+ and Mg2+ to 4/2 respectively 5. Daily ECG to monitor QTc and nonspecific T wave changes, which occur in setting of electrolyte derangements 6. Echo showed improved EF, now near normal. Oral maintenance diuretic requirement will likely be reduced moving forward. 7. EEG pending. 8. Telemetry for additional 24 hours, if remains benign plan to d/c tele tomorrow.
[2019-08-08 07:39] LABS: HEMATOCRIT 26.7 % (32.4-45.2); HEMOGLOBIN 8.8 GM/dL (10.7-15.3); MCHC 33.1 g/dl (32.0-36.0); MEAN CELL VOLUME 87.8 fl (80-96); MEAN PLT VOLUME 8.3 fl (7.5-11.1); PLATELET COUNT 205 K/MM3 (134-434); RBC 3.05 M/mm3 (3.60-5.2); RDW 15.2 % (11.6-15.6); WHITE BLOOD COUNT 5.5 K/mm3 (4.0-10.0)
[2019-08-08 08:04] LABS: ALBUMIN 2.9 g/dl (3.4-5.0); BILIRUBIN,TOTAL 0.3 mg/dL (0.2-1); CALCIUM 8.4 mg/dL (8.5-10.1); MAGNESIUM 2.2 mg/dL (1.8-2.4); POTASSIUM 4.3 mmol/L (3.5-5.1); TOT PROT 6.2 g/dl (6.4-8.2)
[2019-08-08] MEDS: FERROUS SO4 325 MG TABLET (FP) PO SCH ×2 (09:53→21:35)
[2019-08-08] MEDS: ASPIRIN COATED 81 MG TABLET.EC PO SCH (09:53)
[2019-08-08] MEDS: PANTOPRAZOLE 20 MG TABLET (FP) PO SCH (09:54)
[2019-08-08] MEDS: CARVEDILOL 25 MG TABLET (FP) PO SCH ×2 (09:54→21:35)
[2019-08-08] MEDS: HEPARIN NA (PORCINE) 5,000 UNITS/ML 1ML VIAL SQ SCH ×2 (09:54→21:35)
--- NOTE | 2019-08-08 11:05 | PN ---
Progress Note (short form) - Note Progress Note: SUBJECTIVE: complains of ongoing back pain s/p syncope/fall, shooting down bilateral LEs, L> R. No bladder or bowel dysfunction. No CP/palps/ lightheadedness. OBJECTIVE: Afebrile, Hemodynamically Stable Last Vital Signs Temp Pulse Resp BP Pulse Ox 98.2 F 60 20 110/65 98 08/08/19 05:14 08/08/19 05:14 08/08/19 05:14 08/08/19 05:14 08/07/19 21:00 Heart - S1, S2, RRR Lungs - clear to auscultation Abdomen - soft, non-tender. Bowel Sounds normal. Extremities - Mild edema. No calf tenderness. Pain at rest on flexion of LEs bilaterally. Neurovascularly intact. MS - Lumbar spine tenderness. Neuro - AAO x 3. SERGIO. CN intact. Pain on movement of LEs. Laboratory Results - last 24 hr 08/08/19 08/08/19 06:22 06:22 WBC 5.5 RBC 3.05 L Hgb 8.8 L Hct 26.7 L MCV 87.8 MCH 29.0 MCHC 33.1 RDW 15.2 Plt Count 205 MPV 8.3 Sodium 139 Potassium 4.3 Chloride 111 H Carbon Dioxide 24 Anion Gap 5 L BUN 15.0 Creatinine 1.0 Est GFR (CKD-EPI)AfAm 75.01 Est GFR (CKD-EPI)NonAf 64.72 Random Glucose 94 Calcium 8.4 L Magnesium 2.2 Iron 50 TIBC 333 Iron Saturation 15 L Unsaturated IBC 283 H Ferritin 57.5 Total Bilirubin 0.3 AST 14 L ALT 21 Alkaline Phosphatase 70 Total Protein 6.2 L Albumin 2.9 L Current Medications Generic Name Dose Route Start Last Admin Trade Name Freq PRN Reason Stop Dose Admin Albuterol Sulfate 1 amp 08/07/19 13:36 08/07/19 20:15 Ventolin 0.083% Nebulizer Soln - NEB 1 amp Q4H PRN Administration SHORT OF BREATH/WHEEZING Albuterol Sulfate 2 puff 08/07/19 14:26 Ventolin Hfa Inhaler - IH Q4H PRN SHORTNESS OF BREATH Albuterol Sulfate 1 puff 08/07/19 14:27 Ventolin Hfa Inhaler - IH Q4H PRN SHORTNESS OF BREATH Aspirin 81 mg 08/06/19 17:45 11/02/19 09:53 Ecotrin - PO 81 mg DAILY [facility] Administration Atorvastatin Calcium 10 mg 08/06/19 22:00 08/07/19 21:40 Lipitor - PO 10 mg HS [facility] Administration Carvedilol 25 mg 08/06/19 22:00 08/08/19 09:54 Coreg - PO 25 mg BID [facility] Administration Cyclobenzaprine HCl 5 mg 08/07/19 22:00 08/08/19 06:01 Flexeril - PO 5 mg TID [facility] Administration Ergocalciferol 50,000 unit 08/10/19 10:00 Drisdol - PO Mo@1000 [facility] Ferrous Sulfate 325 mg 08/06/19 22:00 08/08/19 09:53 Feosol - PO 325 mg BID [facility] Administration Heparin Sodium (Porcine) 5,000 unit 08/06/19 22:00 08/08/19 09:54 Heparin - SQ 5,000 unit BID [facility] Administration Sodium Chloride 1,000 mls @ 100 mls/hr 08/06/19 16:45 08/08/19 05:59 Normal Saline - IV 100 mls/hr ASDIR [facility] Administration Levothyroxine Sodium 25 mcg 08/07/19 07:00 08/08/19 06:01 Synthroid - PO 25 mcg AM [facility] Administration Miscellaneous 1 each 08/07/19 22:00 08/07/19 21:42 Lidoderm Patch Removal MC Not Given DAILY@2200 [facility] Oxycodone HCl 5 mg 08/08/19 10:55 Roxicodone - PO Q6H PRN PAIN LEVEL 6-10 Pantoprazole Sodium 20 mg 08/06/19 17:45 08/08/19 09:54 Protonix - PO 20 mg DAILY [facility] Administration Home Medications Medication Instructions Recorded Aspirin [Aspirin EC] 81 mg PO DAILY 11/12/18 Ergocalciferol (Vitamin D2) 50,000 unit PO WEEKLY 11/12/18 [Vitamin D2] Ferrous Sulfate 325 mg PO BID 11/12/18 Levothyroxine [Synthroid -] 25 mcg PO DAILY 11/12/18 Pantoprazole Sodium [Protonix -] 20 mg PO DAILY 11/12/18 Atorvastatin Ca [Lipitor] 10 mg PO DAILY 01/16/19 Losartan Potassium 100 mg PO DAILY 01/23/19 Ranitidine HCl 300 mg PO HS 03/12/19 Carvedilol [Coreg -] 25 mg PO BID 05/13/19 Albuterol Sulfate Inhaler - 1 - 2 inh PO PRN PRN #30 inhaler 05/16/19 [Ventolin HFA Inhaler -] Furosemide [Lasix -] 40 mg PO DAILY #30 tablet 05/16/19 Potassium Chloride [K-Dur -] 20 meq PO DAILY #30 tablet.er 05/16/19 ASSESSMENT AND PLAN: 54 year old female with history of chronic systolic CHF (EF 40-45%), HTN, HLD, Hypothyroidism, Chronic KAUSHAL, presents to the ED with L sided body pain after a syncopal episode while on the toilet, awoke on bathroom floor incontinent of stool and urine. Background history 4 days of feeling generally unwell with diaphoresis, myalgia, lethargy. No preceding CP/palpitations/lightheadedness. Unclear if any head injury. L knee xray: Arthritic changes. No fx/subluxation. L hip/pelvis xray: No acute hip pathology. Head CT: No acute pathology. Large defect in nasal septum anteriorly. Facial bones CT: Unremarkable. L shoulder xray: no acute findings. CT C-spine: C3-C4 mild to mod degenerative disease w/ prominent anterior spondylosis CT T-spine: Unremarkable. CT L-spine: Minimal anterior/compression deformity of L3 superior endplate, likely chronic. Mild compression of L5 superior endplate, likely recent. Partially included low-attenuation mass-like density in the R side pelvis measuring 2.8 cm for which pelvic u/s is recommended 1. Syncope, etiology unclear, vasovagal versus seizure Orthostatic vitals negative no telemonoitoring events. ECG - SR, T waves anterolateral leads, prolonged QTc. CP free. Imaging as above. Echo normal, Carotid Duplex shows no hemodynamically significant stenosis EEG pending. Cardiology following. Evaluated by Neuro who recommends Topiramate for headache. No headache currently. Can follow with Neuro as out-patient for medication initiation. Additional 24 hours of telemonitoring as per Cardio. PT 2. GERARD secondary to dehydration resolved with gentle IV fluids Renal US - no obstruction. 3. Acute compression fracture L5 with L4/5 and L5/S1 disc bulge with foraminal stenosis Back Pain with shooting pains down both legs and mobility limited by pain. No bladder/bowel dysfunction. NeuroSurgery (Dr. Juarez) consulted for above findings - IV morphine transitioned to Oxycodone prn in addition to flexeril added by Neurosurgery. As per NeuroSx, no need for surgical intervention andif persistent pain consider pain management for EPSI. 4. Chronic Systolic CHF - Lasix resumed. GERARD resolved, IV fluids discontinued. 5. HTN - ARB held due to GERARD. Continue Coreg. BP borderline. continue holding ARB. 6. HLD - CK 71. continue Statin. 7. Hypothyroidism - continue Levothyroxine. 8. Iron Deficiency Anemia, etiology unclear. Iron Sat 15%. Continue FeSO4 supplementation. Further Ix as out-patient. 9. Incidental finding of possible pelvic mass on CT - Pelvic US does not show mass or cyst. Discussed with Dr. Danielle Dixon re: need for further imaging - he thinks this is likely ovarian cyst and recommends Transvaginal US - patient agrees to have the study. 10. GERD - Continue PPI 11. Hypokalemia/Hypomagnesemia - repleted. DVT Px - Heparin SQ Visit type - Emergency Visit Emergency Visit: Yes ED Registration Date: 08/06/19 Care time: The patient presented to the Emergency Department on the above date and was hospitalized for further evaluation of their emergent condition. - New Patient This patient is new to me today: No - Critical Care Critical Care patient: No - Discharge Referral Referred to [facility] Med [facility].C.: No
[2019-08-08] MEDS: oxyCODONE HCL 5 MG TABLET PO PRN ×2 (12:43→20:13)
[2019-08-08] MEDS: ALBUTEROL SO4 0.083% IH SOL 2.5 MG/3 ML VIAL.NEB. NEB PRN (20:55)
[2019-08-08] MEDS: ATORVASTATIN CA 10 MG TABLET (FP) PO SCH (21:35)
[2019-08-09] MEDS: oxyCODONE HCL 5 MG TABLET PO PRN ×2 (03:47→11:49)
[2019-08-09] MEDS: CYCLOBENZAPRINE HCL 10 MG TABLET (FP) PO SCH ×2 (06:27→13:50)
[2019-08-09] MEDS: LEVOTHYROXINE NA 25 MCG TABLET (FP) PO SCH (06:28)
--- NOTE | 2019-08-09 06:46 | PN ---
Progress Note, Physician Chief Complaint: ambulating w/o sx No dizziness No presyncope sx No CP, SOB. L arm IV infiltrated on 08/08, was swollen and warm (per patient); IV removed and today erythema resolved and swelling improving. Tele: NSR BP low normal. Weight up from admission, but clinically appears euvolemic - Current Medication List Current Medications: Active Medications Albuterol Sulfate (Ventolin 0.083% Nebulizer Soln -) 1 amp NEB Q4H PRN PRN Reason: SHORT OF BREATH/WHEEZING Last Admin: 08/08/19 20:55 Dose: 1 amp Albuterol Sulfate (Ventolin Hfa Inhaler -) 2 puff IH Q4H PRN PRN Reason: SHORTNESS OF BREATH Albuterol Sulfate (Ventolin Hfa Inhaler -) 1 puff IH Q4H PRN PRN Reason: SHORTNESS OF BREATH Aspirin (Ecotrin -) 81 mg PO DAILY [facility] Last Admin: 08/08/19 09:53 Dose: 81 mg Atorvastatin Calcium (Lipitor -) 10 mg PO HS [facility] Last Admin: 08/08/19 21:35 Dose: 10 mg Carvedilol (Coreg -) 25 mg PO BID [facility] Last Admin: 08/08/19 21:35 Dose: 25 mg Cyclobenzaprine HCl (Flexeril -) 5 mg PO TID [facility] Last Admin: 08/09/19 06:27 Dose: 5 mg Ergocalciferol (Drisdol -) 50,000 unit PO Mo@1000 [facility] Ferrous Sulfate (Feosol -) 325 mg PO BID [facility] Last Admin: 08/08/19 21:35 Dose: 325 mg Furosemide (Lasix -) 20 mg PO DAILY [facility] Heparin Sodium (Porcine) (Heparin -) 5,000 unit SQ BID [facility] Last Admin: 08/08/19 21:35 Dose: 5,000 unit Levothyroxine Sodium (Synthroid -) 25 mcg PO AM [facility] Last Admin: 08/09/19 06:28 Dose: 25 mcg Oxycodone HCl (Roxicodone -) 5 mg PO Q6H PRN PRN Reason: PAIN LEVEL 6-10 Last Admin: 08/09/19 03:47 Dose: 5 mg Pantoprazole Sodium (Protonix -) 20 mg PO DAILY [facility] Last Admin: 08/08/19 09:54 Dose: 20 mg - Objective Vital Signs: Vital Signs Temperature 98.4 F 08/09/19 05:13 Pulse Rate 57 L 08/09/19 05:13 Respiratory Rate 20 08/09/19 05:13 Blood Pressure 110/70 08/09/19 05:13 O2 Sat by Pulse Oximetry (%) 98 08/08/19 20:23 Constitutional: Yes: No Distress, Calm Eyes: Yes: Conjunctiva Clear Cardiovascular: Yes: Regular Rate and Rhythm Respiratory: Yes: CTA Bilaterally (no rales) Gastrointestinal: Yes: Soft, Abdomen, Obese Edema: No Neurological: Yes: Alert, Oriented Labs: CBC, BMP 08/08/19 06:22 08/08/19 06:22 INR, PTT INR 1.01 (0.83-1.09) 08/06/19 12:55 - ....Imaging EKG: Image Reviewed Assessment/Plan IMP: Recurrent syncope in setting of ARF, hypotension Non-ischemic CM Hypokalemia Prolonged QT REC: 1. Renal fxn rapidly normalized with gentle hydration and temp. d/c Lasix; now resumed PO Lasix at half dose. Will need close outpatient monitoring of volume status and renal fx. Echo this admission shows normalization LVEF (on med Rx) and thus maintenance diuretic requirements likely reduced. 2. Hold ARB in this setting of ARF and hypotension; resume when renal function stable. 3. Cont tele, however strongly suspect syncope secondary to orthostatic hypotension and ARF; repeat ECG to assure QTc normalized 4. Replete K+ and Mg2+ to 4/2 respectively 5. EEG pending. 6. If repeat ECG shows normalization of QTc, ok to d/c tele.
[2019-08-09] MEDS: ALBUTEROL SO4 0.083% IH SOL 2.5 MG/3 ML VIAL.NEB. NEB PRN ×2 (07:10→11:40)
[2019-08-09 08:11] LABS: BASO % 0.4 % (0-2.0); EOS % 4.3 % (0-4.5); HEMOGLOBIN 9.3 GM/dL (10.7-15.3); LYMPH % 30.7 % (8-40); MCHC 33.3 g/dl (32.0-36.0); MEAN CELL VOLUME 86.9 fl (80-96); MEAN PLT VOLUME 7.7 fl (7.5-11.1); NEUT % 57.6 % (42.8-82.8); PLATELET COUNT 205 K/MM3 (134-434); RBC 3.22 M/mm3 (3.60-5.2); RDW 15.2 % (11.6-15.6); WHITE BLOOD COUNT 5.4 K/mm3 (4.0-10.0)
--- NOTE | 2019-08-09 08:44 | PN ---
Teaching Attending Note Name of Resident: K[place]ly Bay ATTENDING PHYSICIAN STATEMENT I saw and evaluated the patient. I reviewed the resident's note and discussed the case with the resident. I agree with the resident's findings and plan as documented. SUBJECTIVE: improving back pain and mobility s/p syncope/fall. No bladder or bowel dysfunction. No CP/palps/lightheadedness. OBJECTIVE: Afebrile, Hemodynamically Stable Last Vital Signs Temp Pulse Resp BP Pulse Ox 98.4 F 57 L 20 110/70 98 08/09/19 05:13 08/09/19 05:13 08/09/19 05:13 08/09/19 05:13 08/08/19 20:23 Heart - S1, S2, RRR Lungs - clear to auscultation Abdomen - soft, non-tender. Bowel Sounds normal. Extremities - Mild edema. No calf tenderness. Pain at rest on flexion of LEs bilaterally. Neurovascularly intact. MS - Lumbar spine tenderness. Neuro - AAO x 3. SERGIO. CN intact. Pain on movement of LEs. Power normal. Laboratory Results - last 24 hr 08/09/19 08:00 WBC 5.4 RBC 3.22 L Hgb 9.3 L Hct 28.0 L MCV 86.9 MCH 29.0 MCHC 33.3 RDW 15.2 Plt Count 205 MPV 7.7 Absolute Neuts (auto) 3.1 Neutrophils % 57.6 Lymphocytes % 30.7 D Monocytes % 7.0 Eosinophils % 4.3 D Basophils % 0.4 Nucleated RBC % 0 Current Medications Generic Name Dose Route Start Last Admin Trade Name Freq PRN Reason Stop Dose Admin Albuterol Sulfate 1 amp 08/07/19 13:36 08/09/19 07:10 Ventolin 0.083% Nebulizer Soln - NEB 1 amp Q4H PRN Administration SHORT OF BREATH/WHEEZING Albuterol Sulfate 2 puff 08/07/19 14:26 Ventolin Hfa Inhaler - IH Q4H PRN SHORTNESS OF BREATH Aspirin 81 mg 08/06/19 17:45 08/08/19 09:53 Ecotrin - PO 81 mg DAILY [facility] Administration Atorvastatin Calcium 10 mg 08/06/19 22:00 08/08/19 21:35 Lipitor - PO 10 mg HS [facility] Administration Carvedilol 25 mg 08/06/19 22:00 08/08/19 21:35 Coreg - PO 25 mg BID [facility] Administration Cyclobenzaprine HCl 5 mg 08/07/19 22:00 08/09/19 06:27 Flexeril - PO 5 mg TID [facility] Administration Ergocalciferol 50,000 unit 08/10/19 10:00 Drisdol - PO Mo@1000 [facility] Ferrous Sulfate 325 mg 08/06/19 22:00 08/08/19 21:35 Feosol - PO 325 mg BID [facility] Administration Furosemide 20 mg 08/09/19 10:00 Lasix - PO DAILY [facility] Heparin Sodium (Porcine) 5,000 unit 08/06/19 22:00 08/08/19 21:35 Heparin - SQ 5,000 unit BID [facility] Administration Levothyroxine Sodium 25 mcg 08/07/19 07:00 08/09/19 06:28 Synthroid - PO 25 mcg AM [facility] Administration Oxycodone HCl 5 mg 08/08/19 10:55 08/09/19 03:47 Roxicodone - PO 5 mg Q6H PRN Administration PAIN LEVEL 6-10 Pantoprazole Sodium 20 mg 08/06/19 17:45 08/08/19 09:54 Protonix - PO 20 mg DAILY [facility] Administration Home Medications Medication Instructions Recorded Aspirin [Aspirin EC] 81 mg PO DAILY 11/12/18 Ergocalciferol (Vitamin D2) 50,000 unit PO WEEKLY 11/12/18 [Vitamin D2] Ferrous Sulfate 325 mg PO BID 11/12/18 Levothyroxine [Synthroid -] 25 mcg PO DAILY 11/12/18 Pantoprazole Sodium [Protonix -] 20 mg PO DAILY 11/12/18 Atorvastatin Ca [Lipitor] 10 mg PO DAILY 01/16/19 Losartan Potassium 100 mg PO DAILY 01/23/19 Ranitidine HCl 300 mg PO HS 03/12/19 Carvedilol [Coreg -] 25 mg PO BID 05/13/19 Albuterol Sulfate Inhaler - 1 - 2 inh PO PRN PRN #30 inhaler 05/16/19 [Ventolin HFA Inhaler -] Furosemide [Lasix -] 40 mg PO DAILY #30 tablet 05/16/19 Potassium Chloride [K-Dur -] 20 meq PO DAILY #30 tablet.er 05/16/19 ASSESSMENT AND PLAN: 54 year old female with history of chronic systolic CHF (EF 40-45%), HTN, HLD, Hypothyroidism, Chronic KAUSHAL, presents to the ED with L sided body pain after a syncopal episode while on the toilet, awoke on bathroom floor incontinent of stool and urine. Background history 4 days of feeling generally unwell with diaphoresis, myalgia, lethargy. No preceding CP/palpitations/lightheadedness. Unclear if any head injury. L knee xray: Arthritic changes. No fx/subluxation. L hip/pelvis xray: No acute hip pathology. Head CT: No acute pathology. Large defect in nasal septum anteriorly. Facial bones CT: Unremarkable. L shoulder xray: no acute findings. CT C-spine: C3-C4 mild to mod degenerative disease w/ prominent anterior spondylosis CT T-spine: Unremarkable. CT L-spine: Minimal anterior/compression deformity of L3 superior endplate, likely chronic. Mild compression of L5 superior endplate, likely recent. Partially included low-attenuation mass-like density in the R side pelvis measuring 2.8 cm for which pelvic u/s is recommended 1. Syncope, etiology unclear, vasovagal versus seizure versus substance abuse Orthostatic vitals negative No telemonoitoring events. Utox - cocaine positive ECG - SR, T waves anterolateral leads, prolonged QTc, now normalized. CP free. Imaging as above. Echo normal, Carotid Duplex shows no hemodynamically significant stenosis EEG result pending - will follow with Neuro as out-patient for result. Cardiology evaluated. Evaluated by Neuro who recommends Topiramate for headache. No headache currently. Can follow with Neuro as out-patient for medication initiation. Mobilizes independently with PT. Medically optimized for discharge. 2. GERARD secondary to dehydration resolved with gentle IV fluids Renal US - no obstruction. Lasix home dose reduced to 20mg. Will continue to hold ARB - Cardiology follow up as out-patient for consideration of resumption. 3. Acute compression fracture L5 with L4/5 and L5/S1 disc bulge with foraminal stenosis Back Pain with shooting pains down both legs and mobility limited by pain. No bladder/bowel dysfunction. NeuroSurgery (Dr. Juarez) consulted for above findings - IV morphine transitioned to Oxycodone prn in addition to flexeril added by Neurosurgery. As per NeuroSx, no need for surgical intervention and if persistent pain consider pain management for EPSI. Follow up NeuroSx and Pain Management on DC. 4. Chronic Systolic CHF - EF recovered. Lasix resumed at lower dose of 20mg. GERARD resolved. 5. HTN - ARB held due to GERARD. Continue Coreg. BP borderline. continue holding ARB. 6. HLD - CK 71. continue Statin. 7. Hypothyroidism - continue Levothyroxine. 8. Iron Deficiency Anemia, etiology unclear. Iron Sat 15%. Continue FeSO4 supplementation. Further Ix as out-patient. 9. Incidental finding of possible pelvic mass on CT - Pelvic US does not show mass or cyst. Discussed with Dr. Danielle Dixon re: need for further imaging - he thinks this is likely ovarian cyst and recommends Transvaginal US -awaiting result. 10. GERD - Continue PPI 11. Hypokalemia/Hypomagnesemia - repleted. DVT Px - Heparin SQ Medicaly optimized for discharge home with Cardio, Neuro, NeuroSurgery, Pain Management, PCP, and GI follow ups.
[2019-08-09] MEDS ORDERED: FUROSEMIDE 20 MG TABLET (FP) PO SCH (10:00)
[2019-08-09] MEDS: PANTOPRAZOLE 20 MG TABLET (FP) PO SCH (10:12)
[2019-08-09] MEDS: CARVEDILOL 25 MG TABLET (FP) PO SCH (10:12)
[2019-08-09] MEDS: FERROUS SO4 325 MG TABLET (FP) PO SCH (10:12)
[2019-08-09] MEDS: HEPARIN NA (PORCINE) 5,000 UNITS/ML 1ML VIAL SQ SCH (10:12)
[2019-08-09] MEDS: ASPIRIN COATED 81 MG TABLET.EC PO SCH (10:12)
[2019-08-09 10:25] LABS: METHADONE, UR NEGATIVE ng/ml (CUTOFF=300); PHENCYCLIDINE,URINE NEGATIVE ng/ml (CUTOFF=25); URINE AMPHETAMINES NEGATIVE ng/ml (CUTOFF=500); URINE BARBITURATES NEGATIVE ng/ml (CUTOFF=200); URINE BENZODIAZEPINES NEGATIVE ng/ml (CUTOFF=200)
[2019-08-09 10:37] LABS: COCAINE, UR POSITIVE ng/ml (CUTOFF=300); OPIATES, URI POSITIVE ng/ml (CUTOFF=300)
--- NOTE | 2019-08-09 10:58 | PN ---
Progress Note (short form) - Note Progress Note: NEUROSURGERY LBP to L buttock and posterior thigh, better Some R hip pain, mild. PE: AF, VSS General- unremarkable, mildly obese CN- intact II- XII; Motor- 5/5 except L IP/Quad/TA /EHL 4+; Sensation- intact LT ; DTR- 2+; Back- tender L L4-5-S1 paraspinal region; + SLR on L at [address]- negative for bleed or fx; no HCP; no acute large infarct LS spine CT- L5-S1 DDD, mild L4-5 spondylolisthesis;mild L5 sup endplate depression LS spine MRI- L5-S1 DDD with facet hypertrophy; L5 sup endplate depression with vertebral mild edema on FSE; no marked stenosis; R > L mild L4-5 disc bulge Mild L5 superior endplate fx with L4-5 disc bulge Lumbar support PRN F/u LS spine x-rays in 2 week- expect mild vertebral L5 subsidence PT/ambulate No neurosurgical intervention indicated nor recommended Muscle relaxant prn Pain meds prn Lumbar support ordered and being used F/U LS spine x-rays in 2 weeks to f/u L5 stature If persistent pain consider pain management for EPSI Pt aware of the above
[2019-08-09] MEDS ORDERED: LIDOCAINE 5% TOPICAL PATCH TP ONE (13:21)
--- NOTE | 2019-08-09 13:48 | DS ---
Physical Exam: SUBJECTIVE: Patient seen and examined at bedside this morning. No acute events overnight. Patient reports improvement of back pain. Denies any fever, chills, headache, dizziness, chest pain, SOB, abdominal pain, diarrhea, urinary symptoms. OBJECTIVE: Vital Signs Temperature 98.2 F 08/09/19 14:00 Pulse Rate 74 08/09/19 14:00 Respiratory Rate 20 08/09/19 14:00 Blood Pressure 111/70 08/09/19 14:00 O2 Sat by Pulse Oximetry (%) 98 08/09/19 09:00 PHYSICAL EXAM GENERAL: The patient is awake, alert, and fully oriented, in no acute distress. HEAD: Normal with no signs of trauma. EYES: PERRLA, EOMI, sclera anicteric, conjunctiva clear. ENT: moist mucous membranes. NECK: Trachea midline, full range of motion, supple. LUNGS: Breath sounds equal, clear to auscultation bilaterally. HEART: Regular rate and rhythm, S1, S2 without murmur, rub or gallop. ABDOMEN: Soft, nontender, nondistended, normoactive bowel sounds. EXTREMITIES: 2+ pulses, warm, well-perfused, no edema. NEUROLOGICAL: Cranial nerves II through XII grossly intact. Normal speech, gait not observed. PSYCH: Normal mood, normal affect. SKIN: Warm, dry, normal turgor, no rashes or lesions noted. LABS Laboratory Results - last 24 hr 08/07/19 08/09/19 08/09/19 07:30 07:30 08:00 WBC 5.4 RBC 3.22 L Hgb 9.3 L Hct 28.0 L MCV 86.9 MCH 29.0 MCHC 33.3 RDW 15.2 Plt Count 205 MPV 7.7 Absolute Neuts (auto) 3.1 Neutrophils % 57.6 Lymphocytes % 30.7 D Monocytes % 7.0 Eosinophils % 4.3 D Basophils % 0.4 Nucleated RBC % 0 Creatinine Cancelled Specific [place] Cancelled Urine Butalbital Cancelled Ur Butalbital Confirm Cancelled Opiates Screen Positive A* Urine Opiates Screen Cancelled Meperidine Cancelled Urine Normeperidine Cancelled U Normeperidine GC/MS Cancelled Urine Codeine Cancelled U Codeine Confrm GC/MS Cancelled Urine Morphine Cancelled Morphine Confirm GC/MS Cancelled Urine Hydrocodone Cancelled Ur Hydrocodone (GC/MS) Cancelled Urine Oxycodone Cancelled Ur Oxycodone GC/MS Cancelled Oxymorphone Confirm Cancelled Urine Oxymorphone Cancelled U Oxycodone/Oxymorphon Cancelled Methadone Screen Negative Ur Methadone Cancelled Ur Methadone Confirm Cancelled Ur Hydromorphone Cancelled Ur Hydromorphone (GC/MS) Cancelled Urine Propoxyphene Cancelled U Propoxyphene/M GC/MS Cancelled Barbiturate Screen Negative Ur Barbiturates Screen Cancelled Urine Barbiturates Cancelled Phencyclidine Screen Negative Ur Phencyclidine (PCP) Cancelled Ur PCP Confirm (GC/MS) Cancelled Amphetamines Cancelled Amphetamines Grp GC/MS Cancelled Ur Amphetamines Screen Negative Urine Amphetamine Cancelled Ur Amphetamines, Quant Cancelled Methamphetamine Cancelled Methamphetamine GC/MS Cancelled MDMA (Ecstasy) Screen Negative Urine Amobarbital Cancelled Ur Amobarbital GC/MS Cancelled Urine Pentobarbital Cancelled U Pentobarbital GC/MS Cancelled Urine Phenobarbital Cancelled U Phenobarbital GC/MS Cancelled Urine Secobarbital Cancelled U Secobarbital GC/MS Cancelled Urine Alprazolam Cancelled U [place]-Alprazolam GC/MS Cancelled Benzodiazepines Screen Negative U Benzodiazepines Scrn Cancelled Urine Clonazepam Cancelled U 7-Amino Clonazep GC/MS Cancelled Ur Nordiazepam Cancelled Ur Nordiazepam GC/MS Cancelled Flurazepam Cancelled Flurazepam Confirm Cancelled Lorazepam Cancelled Urine Lorazepam Cancelled Ur Oxazepam Cancelled U Oxazepam Confm GC/MS Cancelled Urine Temazepam Cancelled Ur Temazepam (GC/MS) Cancelled Urine Triazolam Cancelled Ur Triazolam (GC/MS) Cancelled Meperidine (GC/MS) Cancelled Ur Meperidine Cancelled Cocaine Screen Positive A* Cocaine & Metabolite Cancelled Urine Cocaine Cancelled Benzoylecgonine Cancelled Cannabinoids Cancelled Urine Cannabinoids Cancelled U Marijuana (THC) Screen Negative Urine Marijuana (THC) Cancelled Ethyl Alc Confirm Cancelled L knee xray: Arthritic changes. No fx/subluxation. L hip/pelvis xray: No acute hip pathology. Head CT: No acute pathology. Large defect in nasal septum anteriorly. Facial bones CT: Unremarkable. L shoulder xray: no acute findings. CT C-spine: C3-C4 mild to mod degenerative disease w/ prominent anterior spondylosis CT T-spine: Unremarkable. CT L-spine: Minimal anterior/compression deformity of L3 superior endplate, likely chronic. Mild compression of L5 superior endplate, likely recent. Partially included low-attenuation mass-like density in the R side pelvis measuring 2.8 cm for which pelvic u/s is recommended HOSPITAL COURSE: Date of Admission:08/06/19 Date of Discharge: 08/09/19 Patient is a 54 year old female with history of chronic systolic CHF (EF 40-45%) , HTN, HLD, Hypothyroidism, Chronic KAUSHAL, presents to the ED with L sided body pain after a syncopal episode while on the toilet, awoke on bathroom floor incontinent of stool and urine. Background history 4 days of feeling generally unwell with diaphoresis, myalgia, lethargy. Patient was admitted for further work-up of syncopal episode. Orthostatics negative. No telemonitoring events. Head CT, Carotid doppler, and Echo were normal. Patient was also found to have GERARD on admission. IV fluids were given and GERARD resolved. CT spine was done which revealed compression fracture at L5. Neurosurgery was consulted and recommended conservative management with Flexeril and oxycodone and outpatient follow up for further management. Patient was discharged with instructions to follow up with PCP, Neurosurgery and cardiology. Minutes to complete discharge: 36 Discharge Summary Problems reviewed: Yes Reason For Visit: SYNCOPE Condition: Improved - Instructions Diet, Activity, Other Instructions: Your visit You were admitted to the hospital because you had an episode of passing out. You were evaluated by cardiology and an ultrasound of your heart was done and your heart function was noted to be improved from your previous echo. Your passing out was likely caused by dehydration. At the emergency department, your kidney function was noted to be abnormal. You were given IV fluids and your Lasix dose was decreased. Your kidney function improved and normalized. Please note that your Lasix dose was decreased to 20mg daily. You would need to follow up with your primary care doctor within the week for repeat bloodwork to check your kidney function and electrolytes. While here, you were also evaluated by Neurology for the headache and Neurosurgery for the back pain. No surgical intervention was recommended at this time. You were started on muscle relaxants which improved your pain. You were also found to be anemic. You will be started on iron supplement, Ferrous sulfate. Please note that this causes black stools and constipation. You may take stool softeners, like Colace, as needed for constipation. PLease follow up with the air crew officer for further work-up. Medications Please note of the following changes to your medications: 1. Take Flexeril 5mg three times a day as needed. 2. Decrease Lasix dose to 20mg daily. 3. Please STOP taking Losartan, and follow up with cardiology when to resume it. Continue your other home medications. Follow up Please follow up with your primary care doctor within 1 week. You need repeat bloodwork (CBC, BMP) on 08/14 to check your electrolytes and kidney function. Please follow up with the safemaker (Dr. Mayes) within 1 week. Please follow up with the neurosurgeon (Dr. Juarez) within 1-2 weeks. Please follow up with the neurologist (Dr. Ahn) within 1-2 weeks. Please follow up with the air crew officer (Dr. Ojeda) within 1-2 weeks. Additional info Please call 911 or go to the ED if with any worsening fevers, chills, headache, dizziness, chest pain, shortness of breath, abdominal pain, or any new concerns noted. Referrals: Enrique Ahn MD [Staff Physician] - 2 Weeks Tori Peters MD [Staff Physician] - 1 Week (follow up after hospital discharge) John Ojeda MD [Staff Physician] - 2 Weeks Kevin Juarez MD [Staff Physician] - 1 Week Delia Urbina MD [Primary Care Provider] - 1 Week Haylie Zelaya NP [Nurse Practitioner] - 2 Weeks (back pain management) Disposition: HOME - Home Medications Comprehensive Discharge Medication List: Ambulatory Orders Aspirin [Aspirin EC] 81 mg PO DAILY 11/12/18 Ergocalciferol (Vitamin D2) [Vitamin D2] 50,000 unit PO WEEKLY 11/12/18 Ferrous Sulfate 325 mg PO BID 11/12/18 Levothyroxine [Synthroid -] 25 mcg PO DAILY 11/12/18 Pantoprazole Sodium [Protonix -] 20 mg PO DAILY 11/12/18 Atorvastatin Ca [Lipitor] 10 mg PO DAILY 01/16/19 Ranitidine HCl 300 mg PO HS 03/12/19 Carvedilol [Coreg -] 25 mg PO BID 05/13/19 Albuterol Sulfate Inhaler - [Ventolin HFA Inhaler -] 1 - 2 inh PO PRN PRN #30 inhaler 05/16/19 Potassium Chloride [K-Dur -] 20 meq PO DAILY #30 tablet.er 05/16/19 Cyclobenzaprine HCl [Flexeril -] 5 mg PO TID PRN #20 tablet 08/09/19 Furosemide [Lasix -] 20 mg PO DAILY tablet 08/09/19 Oxycodone HCl 5 mg PO Q8H PRN 1 Days #3 tablet MDD 15mg 08/09/19 This patient is new to me today: No Emergency Visit: Yes ED Registration Date: 08/06/19 Care time: The patient presented to the Emergency Department on the above date and was hospitalized for further evaluation of their emergent condition. Critical Care patient: No - Discharge Referral Referred to [facility] No ATTENDING PHYSICIAN STATEMENT I saw and evaluated the patient. I reviewed the resident's note and discussed the case with the resident. I agree with the resident's findings and plan as documented. SUBJECTIVE: OBJECTIVE: ASSESSMENT AND PLAN:
[2019-08-09 14:15] VITALS: BP 111/70; PULSE 74; TEMP 98.2
[2019-08-09] MEDS ORDERED: LIDOCAINE PATCH REMOVAL MC ONE (22:00)
[2019-08-10] MEDS ORDERED: ERGOCALCIFEROL (VIT D2) 50,000 UNIT (1.25 MG) CAPSULE PO SCH (10:00)
--- NOTE | 2019-08-10 10:11 | EKG ---
Test Reason : Blood Pressure : / mmHG Vent. Rate : 059 BPM Atrial Rate : 059 BPM P-R Int : 164 ms QRS Dur : 088 ms QT Int : 446 ms P-R-T Axes : 030 035 060 degrees QTc Int : 441 ms SINUS BRADYCARDIA NONSPECIFIC T WAVE ABNORMALITY ABNORMAL ECG WHEN COMPARED WITH ECG OF 08-AUG-2019 11:11, NO SIGNIFICANT CHANGE WAS FOUND Confirmed by MARIA ELENA BLOCK MD ([id number]) on 08/10/2019 10:11:01 AM Referred By: Stephan OLEARY Confirmed By:MARIA ELENA BLOCK MD
--- NOTE | 2019-08-10 10:49 | EKG ---
Test Reason : Blood Pressure : / mmHG Vent. Rate : 055 BPM Atrial Rate : 055 BPM P-R Int : 160 ms QRS Dur : 090 ms QT Int : 474 ms P-R-T Axes : 033 044 070 degrees QTc Int : 453 ms SINUS BRADYCARDIA NONSPECIFIC T WAVE ABNORMALITY ABNORMAL ECG WHEN COMPARED WITH ECG OF 06-AUG-2019 12:43, T WAVE VARIATION Confirmed by UMAIR MANN, MARIA ELENA ([id number]) on 08/10/2019 10:49:25 AM Referred By: Stephan OLEARY Confirmed By:MARIA ELENA BLOCK MD
== END 2019-08-09 14:54 | disposition home or self-care (01) | DRG 469 ==
LOC: JER 10:52 → J4W 16:06 → JERBED 19:36 → J4W 21:49
DX: N17.9 Acute kidney failure, unspecified (principal); M48.56XA Collapsed vertebra, not elsewhere classified, lumbar region, initial encounter for fracture; I11.0 Hypertensive heart disease with heart failure; I50.22 Chronic systolic (congestive) heart failure; I95.9 Hypotension, unspecified; E83.42 Hypomagnesemia; I42.8 Other cardiomyopathies; Z87.891 Personal history of nicotine dependence; R55 Syncope and collapse; D50.9 Iron deficiency anemia, unspecified; F10.10 Alcohol abuse, uncomplicated; F14.10 Cocaine abuse, uncomplicated; R19.00 Intra-abdominal and pelvic swelling, mass and lump, unspecified site; E03.9 Hypothyroidism, unspecified; E78.5 Hyperlipidemia, unspecified; E86.0 Dehydration; K21.9 Gastro-esophageal reflux disease without esophagitis; R94.31 Abnormal electrocardiogram [ECG] [EKG]; E87.6 Hypokalemia; G43.909 Migraine, unspecified, not intractable, without status migrainosus; M51.37 Other intervertebral disc degeneration, lumbosacral region; E66.9 Obesity, unspecified; M47.812 Spondylosis without myelopathy or radiculopathy, cervical region; Z68.36 Body mass index [BMI] 36.0-36.9, adult
CPT/HCPCS: 36415; 70450-TC; 70486-TC; 71046-TC-FY; 72125-TC; 72128-TC; 72131-TC; 72148-TC; 73030-TC-LT-FY; 73523-TC-FY; 73562-TC-LT-FY; 76775-TC; 76830-TC; 76856-TC; 80048; 80053; 80307; 82550; 82728; 83540; 83550; 83735; 83880; 84100; 84443; 84484; 85025; 85027; 85610; 93005; 93010; 93306-TC; 93880-TC; 94640; 95816; 97116-GP; 97161-GP; 99284-25; J0131; J1644; J7030

== ENCOUNTER 2019-12-08 11:59 | Emergency (ER) | payer OTHER ==
[2019-12-08 12:11] VITALS: TEMP 98.2; BMI 35.4
--- NOTE | 2019-12-08 12:12 | PDOC ---
Rapid Medical Evaluation Time Seen by Provider: 12/08/19 12:08 Medical Evaluation: Allergies Allergy/AdvReac Type Severity Reaction Status Date / Time No Known Allergies Allergy Verified 05/13/19 15:44 12/08/19 12:09 CC: bloody discharge from left ear x4 days; seen by ENT 1 week ago and had TT removed from left ear. fell onto left face 3 weeks ago. PE: firm mobile mass present over left zygoma (?encapsulated hematoma) Orders: CT head, face, c-spine Patient will proceed to ED for further evaluation. Discharge Disposition - Diagnosis Head trauma - Referrals - Patient Instructions - Post Discharge Activity
--- NOTE | 2019-12-08 12:30 | PDOC ---
History of Present Illness - General Chief Complaint: Headache Stated Complaint: LFT EAR BLEEDING Time Seen by Provider: 12/08/19 12:08 - History of Present Illness Initial Comments: The pt is a 54F w/ a history of CHF (40-45%), HTN, HLD, hypothyroidism, and distant hx of EtOH and cocaine abuse who presents for evaluation of left ear bleeding and GONZALES. She states that she fell three weeks ago and had subsequent left facial swelling/ear pain. She was evaluated by her ENT on 12/04/19, where her left typanostomy tube was removed. Since that time has continued to have bleeding from the left ear canal. She denies any new trauma. She also reports a left sided GONZALES that is gradual onset, intermittent, non- radiating, throbbing, and not alleviated by Tylenol. Reports persistent left sided facial nodule (over left maxilla). She is also being treated for a R OM with Ciprofloxacin (day 2) from ENT ENT: Dr. Pacheco Smith - [phone] 12/08/19 12:32 Past History - Past Medical History Allergies/Adverse Reactions: Allergies Allergy/AdvReac Type Severity Reaction Status Date / Time No Known Allergies Allergy Verified 12/08/19 12:12 Home Medications: Ambulatory Orders Aspirin [Aspirin EC] 81 mg PO DAILY 11/12/18 Ergocalciferol (Vitamin D2) [Vitamin D2] 50,000 unit PO TU 11/12/18 Ferrous Sulfate 325 mg PO BID 11/12/18 Levothyroxine [Synthroid -] 25 mcg PO DAILY 11/12/18 Pantoprazole Sodium [Protonix -] 20 mg PO DAILY 11/12/18 Atorvastatin Ca [Lipitor] 10 mg PO HS 01/16/19 Carvedilol [Coreg -] 25 mg PO BID 05/13/19 Albuterol Sulfate Inhaler - [Ventolin HFA Inhaler -] 1 - 2 inh PO PRN PRN #30 inhaler 05/16/19 Potassium Chloride [K-Dur -] 20 meq PO DAILY #30 tablet.er 05/16/19 Furosemide [Lasix -] 40 mg PO DAILY 12/04/19 Gabapentin [Neurontin -] 100 mg PO Q8H #30 capsule 12/04/19 Losartan Potassium [Cozaar -] 50 mg PO DAILY 12/04/19 Budesonide/Formeterol Fumarate [SYMBICORT 160/4.5mcg -] 1 inh PO BID 12/08/19 Ciprofloxacin HCl/Dexameth [Ciprodex Otic Suspension] 4 drop BID #1 bottle Tiotropium [place] [Spiriva] 1 inh PO DAILY 12/08/19 Anemia: Yes (iron deficiency) Asthma: Yes Cancer: No Cardiac Disorders: Yes (HFrEF, Iriopathic, dilated cardiomyopathy, [place] [facility] [place] CVA: No COPD: No CHF: Yes Dementia: No Diabetes: No GI Disorders: Yes (colitis, GERD) Disorders: No HTN: Yes Hypercholesterolemia: Yes Liver Disease: No Seizures: No Thyroid Disease: Yes (Hypothyroidism) - Surgical History Abdominal Surgery: Yes (Hysterectomy) Appendectomy: No Cardiac Surgery: No Cholecystectomy: No Lung Surgery: No Neurologic Surgery: No Orthopedic Surgery: No - Immunization History Immunization Up to Date: Yes - Psycho Social/Smoking Cessation Hx Smoking Status: No Smoking History: Never smoked Have you smoked in the past 12 months: No Number of Cigarettes Smoked Daily: 2 If you are a former smoker, when did you quit?: 2000 Hx Alcohol Use: Yes Drug/Substance Use Hx: No Substance Use Type: Cocaine Hx Substance Use Treatment: No Review of Systems - Review of Systems Able to Perform ROS?: Yes Comments:: GENERAL/CONSTITUTIONAL: No fever or chills. No weakness HEAD, EYES, EARS, NOSE AND THROAT: No change in vision. No sore throat CARDIOVASCULAR: No chest pain or shortness of breath RESPIRATORY: Denies cough, hemoptysis GASTROINTESTINAL: No nausea, vomiting, diarrhea or constipation GENITOURINARY: No dysuria, frequency, or change in urination MUSCULOSKELETAL: No joint or muscle swelling or pain. No back pain SKIN: No rash NEUROLOGIC: No loss of consciousness, or change in strength/sensation ENDOCRINE: No increased thirst. No abnormal weight holguin HEMATOLOGIC/LYMPHATIC: No anemia, easy bleeding, or history of blood clots ALLERGIC/IMMUNOLOGIC: No hives or skin allergy 12/08/19 12:29 Is the patient limited [place]an proficient: No *Physical Exam - Vital Signs Last Vital Signs Temp Pulse Resp BP Pulse Ox 98.2 F 72 16 159/99 97 12/08/19 12:12/08/19 12:12/08/19 12:12/08/19 12:12/08/19 12:09 - Physical Exam GENERAL: Awake, alert, and oriented to person/place/time, in no acute distress HEAD: No signs of trauma, normocephalic, atraumatic EYES: PERRLA, EOMI, sclera anicteric, conjunctiva clear ENT: L EAM with small amount of blood, no hemotympanum; R tympanostomy tube in place; Hearing grossly normal, nares patent, oropharynx clear without exudates. No uvular deviation. Moist mucosa LUNGS: No distress, speaks in full sentences, clear to auscultation bilaterally HEART: Regular rate and rhythm, normal S1 and S2, no murmurs appreciated, peripheral pulses normal and equal bilaterally ABDOMEN: Soft, nontender, normoactive bowel sounds. No guarding, no rebound EXTREMITIES: Normal inspection, Normal range of motion, no edema. No clubbing or cyanosis NEUROLOGICAL: Cranial nerves II through XII grossly intact. Normal speech, normal gait, no focal sensorimotor deficits SKIN: Warm, Dry 12/08/19 12:29 ED Treatment Course - LABORATORY CBC & Chemistry Diagram: 12/08/19 13:00 12/08/19 13:00 - RADIOLOGY Radiograph Interpretation: CT scan of the brain Impression: Mild volume loss. No gross evidence of a focal intracranial lesion or hemorrhage is seen. Bilateral mastoid effusion. Partial opacification of the left middle ear. Large defect in the nasal septum. Mild chronic sinusitis. No gross fracture is identified. CT scan of the facial bones without intravenous contrast. IMPRESSION: See discussion above. No gross fracture is identified. Mastoid air cells are almost totally opacified, bilaterally. Mild mucosal thickening in the left middle ear. The external auditory canals are well aerated. No gross temporal bone fracture is identified, bilaterally CT scan of the cervical spine without intravenous contrast IMPRESSION: The alignment is satisfactory. No gross fracture or subluxation is seen. No jumped facets are identified. Mild degenerative disc disease at C3-C4 and minimal degenerative disc disease at C5-C6 level, as described above. 12/08/19 16:11 Medical Decision Making - Medical Decision Making The pt is a 54F w/ a history of CHF (40-45%), HTN, HLD, hypothyroidism, and distant hx of EtOH and cocaine abuse who presents for evaluation of left ear bleeding and GONZALES. ED Course CMP, CBC CT head, facial bones, c-spine IVF, Ofirmev, Benadryl for symptomatic relief 12/08/19 13:16 No leukocytosis No anemia Hypokalemia noted, repleted Other lytes unremarkable No GERADR LFTs wnl 12/08/19 15:[address] w/ b/l mastoid effusions, perforated nasal septum, left middle ear effusion Case discussed w/ Dr. Chen, will add Otic gtt -Rx sent to pt's pharmacy Plan for D/C w/ ENT f/u Discharge instructions and return precautions given Patient in agreement and verbalized understanding Dispo: Home 12/08/19 16:14 Discharge - Discharge Information Problems reviewed: Yes Clinical Impression/Diagnosis: Left ear pain Headache Qualifiers: Headache type: unspecified Headache chronicity pattern: unspecified pattern Intractability: not intractable Qualified Code(s): R51 - Headache Condition: Stable Disposition: HOME - Admission No - Additional Discharge Information Prescriptions: Ciprofloxacin HCl/Dexameth [Ciprodex Otic Suspension] 4 drop BID #1 bottle - Follow up/Referral Referrals: Delia Urbina MD [Primary Care Provider] - Pacheco Smith MD [Staff Physician] - - Patient Discharge Instructions Patient Printed Discharge Instructions: DI for Middle Ear Infection-Adult Additional Instructions: You were seen in the Emergency Department for evaluation of left ear pain and bleeding. Your CT scan was notable for effusions (fluid) in your mastoid air cells (behind your ear). Ear drops were prescribed, use twice a day. Review the handout provided at discharge. Follow up with your ENT. Return to the Emergency Department if you develop fevers, chest pain, trouble breathing, worsening symptoms, or any new/concerning symptoms. - Post Discharge Activity Work/Back to School Note: Back to Work
[2019-12-08] MEDS ORDERED: METOCLOPRAMIDE HCL INJECTION 10 MG/2 ML VIAL IVPB ONE (12:53)
[2019-12-08] MEDS ORDERED: SODIUM CHLORIDE 0.9% 500 ML INFUS.BAG IV ONE (12:53)
[2019-12-08] MEDS ORDERED: ACETAMINOPHEN 1000 MG/100 ML VIAL (NON FORMULARY) IVPB ONE (12:53)
[2019-12-08 13:14] LABS: HEMATOCRIT 34.3 % (32.4-45.2); HEMOGLOBIN 11.4 GM/dL (10.7-15.3); MCHC 33.1 g/dl (32.0-36.0); MEAN CELL VOLUME 87.6 fl (80-96); RBC 3.92 M/mm3 (3.60-5.2)
[2019-12-08 13:15] LABS: BASO % 0.5 % (0-2.0); LYMPH % 18.4 % (8-40); MONO % 6.5 % (3.8-10.2); NEUT % 72.6 % (42.8-82.8); PLATELET COUNT 271 K/MM3 (134-434); RDW 15.2 % (11.6-15.6)
[2019-12-08] MEDS ORDERED: METOCLOPRAMIDE HCL INJECTION 10 MG/2 ML VIAL ONE (13:21)
[2019-12-08] MEDS ORDERED: ACETAMINOPHEN INJECTION 100 ML IVPB ONE (13:22)
[2019-12-08 13:46] LABS: ALBUMIN 3.6 g/dl (3.4-5.0); BILIRUBIN,TOTAL 0.4 mg/dL (0.2-1); BLOOD UREA NITROGEN 11.6 mg/dL (7-18); CALCIUM 8.4 mg/dL (8.5-10.1); CREATININE 0.9 mg/dL (0.55-1.3); POTASSIUM 3.3 mmol/L (3.5-5.1); TOT PROT 7.8 g/dl (6.4-8.2)
--- NOTE | 2019-12-08 14:16 | PDOC ---
Attending Attestation - Resident Resident Name: Shira Quigleyan - ED Attending Attestation I have performed the following: I have examined & evaluated the patient, The case was reviewed & discussed with the resident, I agree w/resident's findings & plan - HPI HPI: 12/08/19 14:13 54-year-old female with history of CHF, hypertension, hearing impairment with bilateral tympanostomy tubes presents from ENT office with persistent bleeding from left ear. Patient has baseline dizziness and falls, sustained a slip and fall with face and head injury about 3 weeks ago, resulting in facial swelling and bruising, now mostly resolved. 5 days ago, patient was seen by ENT and left tympanostomy tube removed, since then has had intermittent bleeding from the left ear worse this morning so she presents for evaluation. No headache, slight residual neck pain from the fall, no new dizziness or neurological deficits. Patient is on antibiotics for right tympanostomy/ear infection, otherwise without new complaints. - Physicial Exam PE: 12/08/19 14:14 Vitals are within normal limits Patient seated comfortably in stretcher speaking full sentences Facial exam is notable for slight soft tissue swelling with residual ecchymosis in the left zygomatic region, tenderness without palpable deformity or step-off along the zygoma, temporal bone, mastoid. There is dried blood in the posterior aspect of the left external auditory canal, the TM is otherwise clear. No C-spine tenderness, full range of motion. No other Traumatic injuries, neurologically intact - Medical Decision Making 12/08/19 14:15 54-year-old female with persistent bleeding from left auditory canal status post removal of tympanostomy but also in the setting of trauma 3 weeks ago. Rule out traumatic injury of temporal bones/auditory canal, otherwise may be secondary to scar tissue from tympanostomy tube. CT head/face/C-spine Reassess, disposition with Dr. Chen of ENT
[2019-12-08] MEDS ORDERED: POTASSIUM CHLORIDE TABS 20 MEQ TABLET.ER (FP) PO ONE ×2 (14:25→16:12)
[2019-12-08] MEDS ORDERED: KETOROLAC TROMETHAMINE 15 MG/ML VIAL IVPUSH ONE (16:04)
[2019-12-08] MEDS ORDERED: KETOROLAC TROMETHAMINE 15 MG/ML VIAL ONE (16:12)
[2019-12-08 17:09] VITALS: PULSE 75
[2019-12-08 18:14] VITALS: BP 136/87
== END 2019-12-08 16:35 | disposition home or self-care (01) ==
LOC: JER 11:59
DX: H95.41 Postprocedural hemorrhage of ear and mastoid process following a procedure on the ear and mastoid process (principal); I11.0 Hypertensive heart disease with heart failure; I50.9 Heart failure, unspecified; I42.0 Dilated cardiomyopathy; E78.5 Hyperlipidemia, unspecified; E03.9 Hypothyroidism, unspecified; D50.9 Iron deficiency anemia, unspecified; J45.909 Unspecified asthma, uncomplicated; K21.9 Gastro-esophageal reflux disease without esophagitis; H91.93 Unspecified hearing loss, bilateral
CPT/HCPCS: 36415; 70450-TC; 70486-TC; 72125-TC; 80053; 85025; 99285-25; J0131

== ENCOUNTER 2019-12-18 08:37 | Day surgery (SDC) | payer OTHER ==
[2019-12-17 10:52] VITALS: BMI 35.4
[2019-12-18] MEDS ORDERED: MIDAZOLAM HCL 2 MG/2 ML SINGLE DOSE VIAL ONE ×2 (13:15)
[2019-12-18] MEDS ORDERED: ONDANSETRON 4 MG/2 ML VIAL ONE (13:37)
[2019-12-18] MEDS ORDERED: LIDOCAINE HCL 1%, 10 MG/ML (20ML VIAL) NR ONE (13:40)
[2019-12-18] MEDS ORDERED: BUPIVACAINE HCL 0.25% 125 MG/50 ML VIAL NR ONE (13:40)
[2019-12-18] MEDS ORDERED: IOHEXOL 300 MG/ML INFUS..BTL IJ ONE (13:40)
[2019-12-18] MEDS ORDERED: BETAMET ACET/BETAMET NA PH 30 MG/5 ML VIAL NR ONE (13:40)
[2019-12-18 14:18] VITALS: TEMP 98.3
[2019-12-18 14:51] VITALS: BP 101/64; PULSE 75
[2019-12-18] MEDS ORDERED: oxyCODONE HCL 5 MG TABLET PO PRN (14:56)
[2019-12-18] MEDS ORDERED: BETAMET ACET/BETAMET NA PH 30 MG/5 ML VIAL ONE (15:00)
[2019-12-18] MEDS ORDERED: LIDOCAINE HCL 1%, 10 MG/ML (20ML VIAL) ONE (15:00)
[2019-12-18] MEDS ORDERED: BUPIVACAINE HCL/PF 0.25% (2.5MG/ML) 10 ML VIAL ONE (15:01)
--- NOTE | 2019-12-20 14:57 | PROC ---
Procedure Note Procedure: Date of service: 12/18/2019 Preoperative Diagnosis: Low back pain and lumbar radiculopathy on Left Postoperative Diagnosis: Same Procedure Performed: Lumbar Epidural Steroid Injection (LESI) on Left L4-5 with dye under Fluoroscopy Anesthesia: Local / MAC Anesthesiologist: Procedure: I discussed with the patient in detail about the risks, benefits, and alternatives to treatment not only limited to infection, headache, numbness, weakness, and injury to nerves, blood vessels and muscles. The patient understood, agreed and signed the written consent. The patient was placed in the prone position with the head, abdomen and legs supported with the pillows. The lumbosacral area was prepped and draped with Betadine times three in a sterile fashion. Lumbar vertebrae were identified under the C-arm. At L4-5 level on the Left side, 3 ml of 1 % Lidocaine was infiltrated into the skin and subcutaneous tissue. A 3 inch, #20 gauge Tuohy needle was advanced to the epidural space with loss of resistance technique under fluoroscopic guidance. Aspiration was negative for cerebrospinal fluid and blood. 2ml of Omnipaque (radio-opaque dye) was injected to confirm the tip of the needle into epidural space and spread of dye. There was no CSF or vascular spread. The spread of dye was noted cranially and caudally on epidurogram. Aspiration was done again which was negative. A solution of 2.5 ml of Celestone, 2.5 ml of 0.25% Marcaine and a total of 5 ml was injected slowly. While Tuohy needle was withdrawn 2.0 ml of 1 % Lidocaine was infiltrated. Bleeding was checked. Betadine was wiped off. A sterile bandage was placed. The patient tolerated the procedure well. There were no immediate complications. The patient was transferred to the recovery room. The patient was observed for some time and discharged as per ASU criteria. The patient was told to apply ice at the injection site. Follow up appointment was given and also call my office at [phone]. If there is any problem, call my office or report to Emergency Room. Abid Huynh M.D.
== END 2019-12-18 14:50 | disposition home or self-care (01) ==
LOC: JASU-SURG 08:37
PROVIDERS: ATTEND Physical Medicine & Rehabilitation
PROC: 3E0R33Z Introduction of Anti-inflammatory into Spinal Canal, Percutaneous Approach (ICD-10-PCS; 2019-12-18)
PROC: B01BYZZ Fluoroscopy of Spinal Cord using Other Contrast (ICD-10-PCS; 2019-12-18)
PROC: 3E0R3BZ Introduction of Anesthetic Agent into Spinal Canal, Percutaneous Approach (ICD-10-PCS; principal; 2019-12-18 10:30)
DX: M54.16 Radiculopathy, lumbar region (principal); M54.5 Low back pain

== ENCOUNTER 2020-04-18 12:22 | Inpatient (IN) | payer OTHER ==
--- NOTE | 2020-04-18 12:31 | PDOC ---
Rapid Medical Evaluation Chief Complaint: Pain, Acute Time Seen by Provider: 04/18/20 12:27 Medical Evaluation: Allergies Allergy/AdvReac Type Severity Reaction Status Date / Time gabapentin AdvReac Intermediate Swelling Verified 02/04/20 09:11 methocarbamol [From Robaxin] AdvReac Intermediate Swelling Verified 02/04/20 09:11 04/18/20 12:27 I have performed a brief in-person evaluation of this patient. The patient presents with a chief complaint of: h/o HTN, HTN, previous chronic alcohol abuse, fatty liver and CHF sent in by PCP for eval of elevated LFTs and abdominal pain with N/V Pertinent physical exam findings: mildly distended abd. TTP to RUQ. afebrile I have ordered the following: CBC, CMP, lipase, IV insert, abd U/S The patient will proceed to the ED for further evaluation. Discharge Disposition - Diagnosis Abdominal pain Qualifiers: Abdominal location: right upper quadrant Qualified Code(s): R10.11 - Right upper quadrant pain - Discharge Dispostion Condition at time of disposition: Stable - Referrals - Patient Instructions - Post Discharge Activity
[2020-04-18 13:19] LABS: BASO % 0.5 % (0-2.0); EOS % 3.5 % (0-4.5); HEMATOCRIT 33.8 % (32.4-45.2); HEMOGLOBIN 11.3 GM/dL (10.7-15.3); LYMPH % 23.2 % (8-40); MCH 30.6 pg (25.7-33.7); MCHC 33.6 g/dl (32.0-36.0); MEAN PLT VOLUME 8.3 fl (7.5-11.1); MONO % 6.3 % (3.8-10.2); NEUT % 66.5 % (42.8-82.8); PLATELET COUNT 248 K/MM3 (134-434); RBC 3.71 M/mm3 (3.60-5.2); RDW 14.8 % (11.6-15.6); WHITE BLOOD COUNT 8.9 K/mm3 (4.0-10.0)
[2020-04-18 13:26] LABS: INR 0.96 (0.83-1.09); PROTHROMBIN TIME (PATIENT) 11.3 SEC (9.7-13.0)
--- NOTE | 2020-04-18 13:26 | PDOC ---
History of Present Illness - General Chief Complaint: Pain, Acute Stated Complaint: ABD PAIN Time Seen by Provider: 04/18/20 12:27 - History of Present Illness Initial Comments: 04/18/20 13:22 55F with PMH of CHF, HTN, HLD, hypothyroidism, alcohol and cocaine abuse, asthma presented to the ED with abdominal pain. Pain started out 2 weeks ago, 9/10 in severity, radiating to the back. Tylenol has been helping, but movement made it worse. Her PCP called her last for abnormal lab work stating that her LFT and WBC was high. Pain is associated with N/V. ROS: GENERAL/CONSTITUTIONAL: No fever or chills. No weakness. HEAD, EYES, EARS, NOSE AND THROAT: Change in vision due to meds. No ear pain or discharge. Sore throat. CARDIOVASCULAR: No chest pain or shortness of breath RESPIRATORY: No cough, wheezing, or hemoptysis. GASTROINTESTINAL: Nausea, vomiting, and constipation. GENITOURINARY: No dysuria, frequency, or change in urination. MUSCULOSKELETAL: No neck or back pain. Mild Extremity edema SKIN: No rash NEUROLOGIC: No headache, vertigo, loss of consciousness, or change in strength/sensation. ENDOCRINE: No increased thirst. No abnormal weight change HEMATOLOGIC/LYMPHATIC: No anemia, easy bleeding, or history of blood clots. ALLERGIC/IMMUNOLOGIC: No hives or skin allergy. PMH: stated above PSH: hysterectomy Med: home meds Allergy: gapapentin, methocarbamol SS: none, used to smoke, drink, and do cocaine PCP: [facility] Service Technician: Lorraine Past History - Medical History Allergies/Adverse Reactions: Allergies Allergy/AdvReac Type Severity Reaction Status Date / Time gabapentin AdvReac Intermediate Swelling Verified 04/18/20 12:27 methocarbamol [From Robaxin] AdvReac Intermediate Swelling Verified 04/18/20 12:27 Home Medications: Ambulatory Orders Aspirin [Aspirin EC] 81 mg PO DAILY 11/12/18 Ergocalciferol (Vitamin D2) [Vitamin D2] 50,000 unit PO TU 11/12/18 Ferrous Sulfate 325 mg PO BID 11/12/18 Levothyroxine [Synthroid -] 25 mcg PO DAILY 11/12/18 Pantoprazole Sodium [Protonix -] 20 mg PO DAILY 11/12/18 Atorvastatin Ca [Lipitor] 10 mg PO HS 01/16/19 Carvedilol [Coreg -] 25 mg PO BID 05/13/19 Albuterol Sulfate Inhaler - [Ventolin HFA Inhaler -] 1 - 2 inh PO PRN PRN #30 inhaler 05/16/19 Potassium Chloride [K-Dur -] 20 meq PO DAILY #30 tablet.er 05/16/19 Furosemide [Lasix -] 40 mg PO DAILY 12/04/19 Losartan Potassium [Cozaar -] 50 mg PO DAILY 12/04/19 Budesonide/Formeterol Fumarate [SYMBICORT 160/4.5mcg -] 1 inh PO BID 12/08/19 Tiotropium [place] [Spiriva] 1 inh PO DAILY 12/08/19 Cetirizine HCl [Zyrtec -] 10 mg PO DAILY 12/17/19 Meclizine HCl [Antivert -] 12.5 mg PO PRN 12/17/19 Topiramate [Topamax] 50 mg PO BID 12/17/19 Amitriptyline HCl 25 mg PO HS #30 tablet 02/04/20 Tizanidine HCl 4 mg PO BID PRN #30 tablet 02/04/20 Anemia: Yes (iron deficiency) Asthma: Yes Cancer: No Cardiac Disorders: Yes (HFrEF, Iriopathic, dilated cardiomyopathy, negative cath in [facility]) CVA: No COPD: No CHF: Yes Dementia: No Diabetes: No GI Disorders: Yes (colitis, GERD) Disorders: No HTN: Yes Hypercholesterolemia: Yes Liver Disease: No Seizures: No Thyroid Disease: Yes (Hypothyroidism) - Surgical History Abdominal Surgery: Yes (Hysterectomy) Appendectomy: No Cardiac Surgery: No Cholecystectomy: No Lung Surgery: No Neurologic Surgery: No Orthopedic Surgery: No - Immunization History Immunization Up to Date: Yes - Psycho-Social/Smoking History Smoking Status: No Smoking History: Never smoked Have you smoked in the past 12 months: No Number of Cigarettes Smoked Daily: 2 If you are a former smoker, when did you quit?: 13 YEARS AGO Information on smoking cessation initiated: No - Substance Abuse Hx (Audit-C & DAST Scrn) How often the patient has a drink containing alcohol: Never Score: In Men: 4 or > Positive; In Women: 3 or > Positive: 0 Screen Result (Pos requires Nsg. Audit-10AR): Negative In the last yr the pt used illegal drug/Rx for NonMed reason: No Score: Yes response is considered Positive: 0 Screen Result (Positive result requires Nsg. DAST-10): Negative *Physical Exam - Vital Signs Last Vital Signs Temp Pulse Resp BP Pulse Ox 97.8 F 101 H 17 177/114 H 99 04/18/20 12:27 04/18/20 12:27 04/18/20 12:27 04/18/20 12:27 04/18/20 12:27 - Physical Exam 04/18/20 13:55 GENERAL: Awake, alert, and fully oriented, in no acute distress HEAD: No signs of trauma, normocephalic, atraumatic EYES: PERRLA, EOMI, sclera anicteric, conjunctiva clear ENT: Auricles normal inspection, hearing grossly normal, nares patent, oropharynx clear without exudates. Moist mucosa NECK: Normal ROM, supple, no lymphadenopathy, JVD, or masses LUNGS: No distress, speaks full sentences, clear to auscultation bilaterally HEART: Regular rate and rhythm, normal S1 and S2, no murmurs, rubs or gallops, p eripheral pulses normal and equal bilaterally. ABDOMEN: Soft, nontender, normoactive bowel sounds. Mild guarding on RUQ, no rebound. No masses. Right CVA tenderness EXTREMITIES : Normal inspection, Normal range of motion, no edema. No clubbing or cyanosis. NEUROLOGICAL: Cranial nerves II through XII grossly intact. Normal speech, normal gait, no focal sensorimotor deficits SKIN: Warm, Dry, normal turgor, no rashes or lesions noted ED Treatment Course - LABORATORY CBC & Chemistry Diagram: 04/18/20 13:00 04/18/20 13:00 Medical Decision Making - Medical Decision Making 04/18/20 14:03 Patient came here for abdominal pain. We ordered CBC, CMP, lactate, tylenol lev el, lipase, CT scan with contrast. For Pain, torrado 15 mg IV push was ordered and administered. Her PCP Dr. Ham was called with [phone] ext [phone] . No one picked up . Will recall again to update patient status and call for her abnormal lab result. 04/18/20 16:57 Lab came back with elevated LFT, tylenol level is negative, lactate was not high. Patient was not anemic. CT scan revealed acute hepatitis vs noninflam process. Based on the H&P, lab, and radiology, patient will be admitted under Dr. Clemente Huynh. Dr. Yaneth Galo and her team came down to ED for sign out and visit. They recommended EKG, UA, and COVID testing. 04/18/20 17:[address] Urbina called. We gave her a thorough report on Ms. Erazo and her progress in the ED. Discharge - Discharge Information Problems reviewed: Yes Clinical Impression/Diagnosis: Hepatitis Abdominal pain Qualifiers: Abdominal location: right upper quadrant Qualified Code(s): R10.11 - Right upper quadrant pain Condition: Stable - Admission Yes - Follow up/Referral Referrals: Delia Urbina MD [Primary Care Provider] - - Patient Discharge Instructions - Post Discharge Activity
[2020-04-18] MEDS ORDERED: KETOROLAC TROMETHAMINE 15 MG/ML VIAL IVPUSH ONE (13:27)
[2020-04-18 13:29] LABS: ACTIVATED PTT 30.5 SECONDS (25.2-36.5)
[2020-04-18] MEDS ORDERED: KETOROLAC TROMETHAMINE 15 MG/ML VIAL ONE (13:42)
[2020-04-18 14:02] LABS: ALBUMIN 3.4 g/dl (3.4-5.0); BILIRUBIN,TOTAL 0.3 mg/dL (0.2-1); BLOOD UREA NITROGEN 13.7 mg/dL (7-18); CALCIUM 9.3 mg/dL (8.5-10.1); POTASSIUM 3.1 mmol/L (3.5-5.1); TOT PROT 7.4 g/dl (6.4-8.2)
--- NOTE | 2020-04-18 14:13 | PDOC ---
Attending Attestation - Resident Resident Name: Kasi Hunter - ED Attending Attestation I have performed the following: I have examined & evaluated the patient, The case was reviewed & discussed with the resident, I agree w/resident's findings & plan - HPI HPI: 04/18/20 14:12 55F with PMH of CHF, HTN, HLD, hypothyroidism, alcohol and cocaine abuse, asthma presented to the ED with right sided abdominal pain x 2 weeks. Pain started out 2 weeks ago, 9/10 in severity, radiating to the back. Tylenol has been helping, but movement made it worse. Her PCP called her last for abnormal lab work stating that her LFT and WBC was high. Pain is associated with N/V, inability to tolerate PO intake. no travel or sick contacts. no diarrhea no urinary sx, hematuria. 04/18/20 16:35 - Physicial Exam PE: 04/18/20 14:12 General: awake and alert, NAD. HEENT: NCAT, PERRL, EOMI, clear conjunctiva, anicteric, moist mucous membranes, clear oropharynx, no oral lesions.. Neck: neck supple, FROM Resp: CTAB, normal and even respirations, no respiratory distress CVS: RRR, no murmurs, 2+ peripheral pulses throughout, no peripheral edema Abdomen: soft, obese abdomen. RUQ tenderness, distended. no rebound or guarding. No CVAT. Back: nontender, normal inspection and ROM] MSK: no edema, HORTON x4, ROM intact. No clubbing or cyanosis. normal bulk and tone. Extremities: no calf tenderness Neuro: alert, oriented appropriately; no focal neurologic deficits Skin: warm and well perfused, cap refill <2 sec, normal color 04/18/20 16:34 - Medical Decision Making 04/18/20 14:12 Vital Signs Temp Pulse Resp BP Pulse Ox 97.8 F 101 H 17 177/114 H 99 04/18/20 12:27 04/18/20 12:27 04/18/20 12:27 04/18/20 12:27 04/18/20 12:27 vitals reviewed hypertensive and mild tachy. DDx abdominal pain: Renal colic, biliary colic, metabolic/electrolyte derangements. GERD, PUD, esophageal spasm, pancreatitis, hepatitis, constipation, colitis, gastroenteritis, cholecystitis, UTI, pyelonephritis, ileus, SBO, medication side effect, hernia, appendicitis, diverticulitis, mesenteric ischemia. msk strain, mesenteric adenitis, psoas abscess. Calcium is mildly low 3.1, will replete with 40 mEq. LFTs is mildly elevated compared to previous Tylenol levels negative. normal wbc ct. No evidence of pancreatitis, AAA, cholecystitis, choledocholithiasis, cholangitis, mesenteric ischemia, small bowel obstruction, diverticulitis, colitis, appendicitis, or pelvic etiolology, yahir ryan tear, no pelvic sx/pain. 04/18/20 16:35 ct with hepatitis/hepatomegaly and fatty liver no other acute pathology noted pt still in pain morphine, IVF admit to medical service for RUQ pain, new hepatitis, GI cs, pain control, serial abdominal exams. Dr Clemente Huynh, hospitalist. 04/18/20 17:13 Discharge - Discharge Information Problems reviewed: Yes Clinical Impression/Diagnosis: Hepatitis Abdominal pain Qualifiers: Abdominal location: right upper quadrant Qualified Code(s): R10.11 - Right upper quadrant pain Condition: Stable - Admission Yes - Follow up/Referral Referrals: Delia Urbina MD [Primary Care Provider] - - Patient Discharge Instructions - Post Discharge Activity
[2020-04-18] MEDS ORDERED: POTASSIUM CHLORIDE TABS 20 MEQ TABLET.ER (FP) PO ONE ×4 (14:19→20:18)
[2020-04-18] MEDS ORDERED: morphine CARPU-JECT 4 MG/1 ML DISP.SYRIN IVPUSH ONE (16:33)
[2020-04-18] MEDS ORDERED: morphine SULFATE 4 MG/ML VIAL ONE (16:49)
--- NOTE | 2020-04-18 18:02 | HP ---
CHIEF COMPLAINT: abd pain PCP: Dr. Urbina Cardio: Dr. Peters HISTORY OF PRESENT ILLNESS: 55F w/ pmhx of CHF, HTN, HLD, hypothyroidism, alcohol and cocaine abuse, asthma presented to the ED with right sided abdominal pain for 2 weeks. States she has been having chronic back for which she sees pain mgmt and receives steroid injections, but started taking Tylenol as the pain had gotten worse. States she has been taking Tylenol daily for the past 2 weeks, ~500 mg x6-8 tablets a day. Since then, her RUQ abd pain has been getting worse. Admits to vomiting yesterday, +nausea, but denies chest pain, sob, h/a. Admits to subjective fevers at home, but denies sick contacts and lives alone. Denies changes in her bowel habits or urinary symptoms. No known liver issues in the past. She does report significant history of alcohol abuse, but stopped 2 years ago after her diagnosis of CHF. Used to drink daily since 15 years old up until 2 years ago. Also admits to cocaine use in the past, but no longer uses it. ER course was notable for: (1) Afebrile, HR 101, 132/82 (2) K 3.1, Lac 2.1, AST/ALT 73/127. Acetaminophen level neg. Hep A, B, C pending (3) PO K-Dur 40 given Recent Travel: Denies PAST MEDICAL HISTORY: As per HPI PAST SURGICAL HISTORY: hysterectomy cyst removal fibroid removal Social History: Smoking: Former smoker, quit 10 years ago Alcohol: As per HPI Drugs: former cocaine user Allergies gabapentin Adverse Reaction (Intermediate, Verified 04/18/20 12:27) Swelling methocarbamol [From Robaxin] Adverse Reaction (Intermediate, Verified 04/18/20 12:27) Swelling HOME MEDICATIONS: Home Medications Medication Instructions Recorded Aspirin [Aspirin EC] 81 mg PO DAILY 11/12/18 Ergocalciferol (Vitamin D2) 50,000 unit PO TU 11/12/18 [Vitamin D2] Ferrous Sulfate 325 mg PO BID 11/12/18 Levothyroxine [Synthroid -] 25 mcg PO DAILY 11/12/18 Pantoprazole Sodium [Protonix -] 20 mg PO DAILY 11/12/18 Atorvastatin Ca [Lipitor] 10 mg PO HS 01/16/19 Carvedilol [Coreg -] 25 mg PO BID 05/13/19 Albuterol Sulfate Inhaler - 1 - 2 inh PO PRN PRN #30 inhaler 05/16/19 [Ventolin HFA Inhaler -] Potassium Chloride [K-Dur -] 20 meq PO DAILY #30 tablet.er 05/16/19 Furosemide [Lasix -] 40 mg PO DAILY 12/04/19 Losartan Potassium [Cozaar -] 50 mg PO DAILY 12/04/19 Budesonide/Formeterol Fumarate 1 inh PO BID 12/08/19 [SYMBICORT 160/4.5mcg -] Tiotropium [place] [Spiriva] 1 inh PO DAILY 12/08/19 Cetirizine HCl [Zyrtec -] 10 mg PO DAILY 12/17/19 Meclizine HCl [Antivert -] 12.5 mg PO PRN 12/17/19 Topiramate [Topamax] 50 mg PO BID 12/17/19 Amitriptyline HCl 25 mg PO HS #30 tablet 02/04/20 Tizanidine HCl 4 mg PO BID PRN #30 tablet 02/04/20 REVIEW OF SYSTEMS CONSTITUTIONAL: Absent: fever, chills, diaphoresis, generalized weakness, malaise, loss of appetite, weight change HEENT: Absent: rhinorrhea, nasal congestion, throat pain, throat swelling, difficulty swallowing, mouth swelling, ear pain, eye pain, visual changes CARDIOVASCULAR: Absent: chest pain, syncope, palpitations, irregular heart rate, lightheadedness, peripheral edema RESPIRATORY: Absent: cough, shortness of breath, dyspnea with exertion, orthopnea, wheezing, stridor, hemoptysis GASTROINTESTINAL: abdominal pain, abdominal distension, nausea, vomiting Absent: diarrhea, constipation, melena, hematochezia GENITOURINARY: Absent: dysuria, frequency, urgency, hesitancy, hematuria, flank pain, genital pain MUSCULOSKELETAL: Absent: myalgia, arthralgia, joint swelling, back pain, neck pain SKIN: Absent: rash, itching, pallor HEMATOLOGIC/IMMUNOLOGIC: Absent: easy bleeding, easy bruising, lymphadenopathy, frequent infections ENDOCRINE: Absent: unexplained weight gain, unexplained weight loss, heat intolerance, cold intolerance NEUROLOGIC: Absent: headache, focal weakness or paresthesias, dizziness, unsteady gait, seizure, mental status changes, bladder or bowel incontinence PSYCHIATRIC: Absent: anxiety, depression, suicidal or homicidal ideation, hallucinations. PHYSICAL EXAMINATION Vital Signs - 24 hr 04/18/20 04/18/20 12:27 15:45 Temperature 97.8 F 97.5 F L Pulse Rate 101 H Pulse Rate [ 76 Left Radial] Respiratory 17 20 Rate Blood Pressure 177/114 H Blood Pressure 132/82 [Right Arm] O2 Sat by Pulse 99 95 Oximetry (%) GENERAL: Well-appearing female. NAD. HEENT: AT/NC. EOMI. MMM NECK: Normal range of motion, supple without lymphadenopathy, JVD, or masses. LUNGS: CTA B/L. No wheezes/rales noted. HEART: RRR. S1,S2. No murmurs ABDOMEN: Obese, mildly distended. Normactive BS in all 4q's. +TTP deep palpation in RUQ. No rebound tenderness or guarding. MUSCULOSKELETAL: Moves all extremities. EXTREMITIES: No peripheral edema noted. NEUROLOGICAL: Cranial nerves II-XII intact. Normal speech. Laboratory Results - last 24 hr CBC, BMP 04/18/20 13:00 04/18/20 13:00 IMAGING: * CTAP: Diffuse hepatic steatosis noted w/ associated hepatomegaly - ? representing acute hepatitis vs. noninflammatory change. Minimal stable hepatomegaly. Chronic staple to mild L5 superior endplate compression fx. ASSESSMENT/PLAN: 55F w/ pmhx of CHF, HTN, HLD, hypothyroidism, alcohol and cocaine abuse, asthma presented to the ED with right sided abdominal pain for 2 weeks admitted for acute hepatitis 2/2 acetaminophen use. #Acute Hepatitis; 2/2 acetaminophen use. AST/ALT 73/127 -Hold all hepatotoxic agents, will hold home statin -Tylenol level <2.0 -Cont to trend LFTs -Will give Tramadol 25 Q6H PO instead -Hep A/B, Hep C Ab ordered -CTAP noted above; diffuse hepatic steatosis w/ associated hepatomegaly - representing ? acute hepatitis vs. non-inflammatory change -Will need outpatient follow up upon discharge #Hypokalemia; K 3.1 -PO K-Dur given x1 -Cont to trend BMP. Cont home med: K-Dur 20 meq QD #Chronic Back Pain; Cont home meds: Baclofen 10 BID #HTN/HLD; Hold home Atorvastatin. Will need to med-rec BP meds. Cont home meds: ASA 81 #Hx of CHF; No acute issues. Will need to med-rec rest of meds (BB, not cu rrently on ACEI/ARB). Cont home meds: Torsemide 40, ASA 81 #Hypothyroidism; Needs med rec. Will cont once confirmed. #Asthma; Stable. No new issues. Cont home meds: Duonebs, Ventolin nebs, Albuterol inhaler, Symbicort, Spiriva #Prophylaxis DVT: Lovenox GI: Cont home Protonix 40 #FEN -PO hydration -recheck lytes in AM (K) -Cholesterol/Fat-controlled diet Dispo -Admit to med-surg Visit type - Emergency Visit Emergency Visit: Yes ED Registration Date: 04/18/20 Care time: The patient presented to the Emergency Department on the above date and was hospitalized for further evaluation of their emergent condition. - New Patient This patient is new to me today: No - Critical Care Critical Care patient: No ATTENDING PHYSICIAN STATEMENT I saw and evaluated the patient. I reviewed the resident's note and discussed the case with the resident. I agree with the resident's findings and plan as documented. SUBJECTIVE: OBJECTIVE: ASSESSMENT AND PLAN:
--- NOTE | 2020-04-18 18:45 | PN ---
Teaching Attending Note Name of Resident: Dionne Galo ATTENDING PHYSICIAN STATEMENT I saw and evaluated the patient. I reviewed the resident's note and discussed the case with the resident. I agree with the resident's findings and plan as documented. SUBJECTIVE: 55 y/o F with pmh of Heart failure 2/2 drug/ETOh abuse, HTN, HLD, Hypothyroi dism, asthma who presents with RUQ abdominal pain. Patient states that she has chronic back pain, and in an effort to not take opiate medication patient was ingesting close to 4-5g of tylenol/day. Today she reports that she has been having abdominal pain, nausea and NB/NB vomiting. In addition she does report decrease in taste sensation, but denies loss of smell, jaundice, icterus, shortness of breath, chest pain, urinary discomfort, diarrhea or constipation. She denies any COVID exposure. PMH/PSH/ROS/Allergies as per resident note OBJECTIVE: Vital Signs Period Temp Pulse Resp BP Sys/Sigala Pulse Ox Last 24 Hr 97.5 F-97.8 F 76-101 17-20 132-177/82-114 95-99 GENERAL: Awake, alert, and fully oriented, in no acute distress. HEAD: Normal with no signs of trauma. EYES: Pupils equal, round and reactive to light, extraocular movements intact, sclera anicteric, conjunctiva clear. No lid lag. EARS, NOSE, THROAT: Ears normal, nares patent, oropharynx clear without exudates. Moist mucous membranes. NECK: Normal range of motion, supple without lymphadenopathy, JVD, or masses. LUNGS: Breath sounds equal, clear to auscultation bilaterally. No wheezes, and no crackles. No accessory muscle use. HEART: Regular rate and rhythm, normal S1 and S2 without murmur, rub or gallop. ABDOMEN: soft, tender to deep palpation, +Hepatomegaly, non-distended MUSCULOSKELETAL: Normal range of motion at all joints. No bony deformities or tenderness. No CVA tenderness. UPPER EXTREMITIES: 2+ pulses, warm, well-perfused. No cyanosis. No clubbing. Cap refill <2 seconds. No peripheral edema. LOWER EXTREMITIES: 2+ pulses, warm, well-perfused. No calf tenderness. No peripheral edema. NEUROLOGICAL: Cranial nerves II-XII intact. Normal speech. Normal gait. PSYCHIATRIC: Cooperative. Good eye contact. Appropriate mood and affect. SKIN: Warm, dry, normal turgor, no rashes or lesions noted. ASSESSMENT AND PLAN: 55 y/o F with PMh as noted who presents with RUQ abdominal pain in setting of extensive tylenol use. Acute Hepatitis: Patient advised to decrease her tylenol use Continue to monitor LFTs Check hepatitis panel Consider tramadol as an alternate so patient can avoid opiate medication Patient appears euvolemic--unlikely that patient has congestive hepatopathy at this time Patient had extensive hepatology workup on her previous admission--negative at that time Hold Statin Heart Failure with preserved EF: patient not in acute exacerbation at this time continue ASA, Toresemide Coreg Patient not on GUANACO or ARB Hold Statin Restart home medications for patients chronic conditions Rest of plan as per resident note Patient seen at bedside with resident.
[2020-04-18] MEDS ORDERED: ASPIRIN COATED 81 MG TABLET.EC ONE (19:29)
[2020-04-18] MEDS ORDERED: ENOXAPARIN NA (PORCINE) 40 MG/0.4 ML DISP.SYRIN SQ ONE (19:30)
[2020-04-18] MEDS ORDERED: PANTOPRAZOLE 40 MG TABLET ONE (19:30)
[2020-04-18] MEDS: ENOXAPARIN NA (PORCINE) 40 MG/0.4 ML DISP.SYRIN SQ SCH (20:15)
[2020-04-18] MEDS: ASPIRIN COATED 81 MG TABLET.EC PO SCH (20:16)
[2020-04-18] MEDS: DULoxetine HCL 20 MG CAPSULE.DR PO SCH (20:16)
[2020-04-18] MEDS: PANTOPRAZOLE 40 MG TABLET PO SCH (20:16)
[2020-04-18] MEDS: TORSEMIDE 20 MG TABLET (FP) PO SCH (20:16)
[2020-04-18] MEDS: TIOTROPIUM BROMIDE 2.5 MCG (SPIRIVA) RESPIMAT INHALER IH SCH (20:16)
[2020-04-18] MEDS: POTASSIUM CHLORIDE TABS 20 MEQ TABLET.ER (FP) PO SCH (20:20)
[2020-04-18 21:37] LABS: URINE COLOR YELLOW
[2020-04-18 21:38] LABS: URINE APPEARANCE CLEAR; URINE BILIRUBIN NEGATIVE (NEGATIVE); URINE GLUCOSE (UA) NEGATIVE (NEGATIVE); URINE KETONE TRACE (NEGATIVE)
[2020-04-18 21:39] LABS: EPI CELLS 44.5 /uL (0-25.1); URINE LEUK ESTERASE NEGATIVE (NEGATIVE); URINE NITRITE NEGATIVE (NEGATIVE); URINE PROTEIN TRACE (NEGATIVE); URINE RBC 22 /uL (0-23.9); URINE WBC 17.6 /uL (0-25.8)
[2020-04-18 21:40] LABS: HYALINE CASTS 1.46 /uL (0-3.1); URINE BACTERIA 713.1 /uL (0-1359)
[2020-04-18] MEDS ORDERED: ALBUTEROL SO4 0.083% IH SOL 2.5 MG/3 ML VIAL.NEB. NEB PRN (22:00)
[2020-04-18] MEDS ORDERED: traMADol HCL 50 MG TABLET ONE (22:09)
[2020-04-18] MEDS ORDERED: BACLOFEN 10 MG TABLET (FP) ONE (22:10)
[2020-04-18] MEDS: BACLOFEN 10 MG TABLET (FP) PO SCH (22:19)
[2020-04-18] MEDS: BUDESONIDE/FORMETEROL FUMARATE 160/4.5 mcg INHALER IH SCH (22:19)
[2020-04-18] MEDS: traMADol HCL 50 MG TABLET PO PRN (22:20)
[2020-04-19] MEDS ORDERED: traMADol HCL 50 MG TABLET PO ONE (00:26)
[2020-04-19 01:38] VITALS: BMI 37.7
[2020-04-19] MEDS: traMADol HCL 50 MG TABLET PO PRN ×4 (05:05→23:39)
[2020-04-19 07:43] LABS: HEMATOCRIT 31.4 % (32.4-45.2); HEMOGLOBIN 10.6 GM/dL (10.7-15.3); MCH 30.2 pg (25.7-33.7); MCHC 33.7 g/dl (32.0-36.0); MEAN CELL VOLUME 89.7 fl (80-96); MEAN PLT VOLUME 7.9 fl (7.5-11.1); PLATELET COUNT 229 K/MM3 (134-434); RDW 14.5 % (11.6-15.6); WHITE BLOOD COUNT 7.9 K/mm3 (4.0-10.0)
[2020-04-19 08:03] LABS: ALBUMIN 3.4 g/dl (3.4-5.0); BLOOD UREA NITROGEN 12.7 mg/dL (7-18); CALCIUM 8.4 mg/dL (8.5-10.1); CREATININE 0.9 mg/dL (0.55-1.3); POTASSIUM 3.4 mmol/L (3.5-5.1); TOT PROT 7.1 g/dl (6.4-8.2)
[2020-04-19 08:22] LABS: BILIRUBIN,TOTAL 0.4 mg/dL (0.2-1)
[2020-04-19] MEDS ORDERED: POTASSIUM CHLORIDE TABS 20 MEQ TABLET.ER (FP) PO ONE (08:52)
[2020-04-19] MEDS: BACLOFEN 10 MG TABLET (FP) PO SCH ×2 (09:34→21:24)
[2020-04-19] MEDS: ASPIRIN COATED 81 MG TABLET.EC PO SCH (09:34)
[2020-04-19] MEDS: PANTOPRAZOLE 40 MG TABLET PO SCH (09:34)
[2020-04-19] MEDS: ENOXAPARIN NA (PORCINE) 40 MG/0.4 ML DISP.SYRIN SQ SCH (09:34)
[2020-04-19] MEDS ORDERED: PT OWN MED DRAWER 7, Y5N ONE (09:36)
[2020-04-19] MEDS: TIOTROPIUM BROMIDE 2.5 MCG (SPIRIVA) RESPIMAT INHALER IH SCH (09:43)
[2020-04-19] MEDS: BUDESONIDE/FORMETEROL FUMARATE 160/4.5 mcg INHALER IH SCH ×2 (09:43→21:24)
--- NOTE | 2020-04-19 10:05 | EKG ---
Test Reason : Blood Pressure : / mmHG Vent. Rate : 079 BPM Atrial Rate : 079 BPM P-R Int : 164 ms QRS Dur : 090 ms QT Int : 402 ms P-R-T Axes : 032 020 038 degrees QTc Int : 460 ms SINUS RHYTHM with APC NONSPECIFIC ST ABNORMALITY BORDERLINE ECG Confirmed by MD BANDAR, EMIR ([id number]) on 04/19/2020 10:05:17 AM Referred By: Confirmed By:EMIR PORTILLO MD
[2020-04-19] MEDS: TORSEMIDE 20 MG TABLET (FP) PO SCH (10:53)
[2020-04-19] MEDS: DULoxetine HCL 20 MG CAPSULE.DR PO SCH (10:54)
[2020-04-19] MEDS: POTASSIUM CHLORIDE TABS 20 MEQ TABLET.ER (FP) PO SCH (13:52)
--- NOTE | 2020-04-19 16:32 | PN ---
Teaching Attending Note Name of Resident: Phill Cunningham ATTENDING PHYSICIAN STATEMENT I saw and evaluated the patient. I reviewed the resident's note and discussed the case with the resident. I agree with the resident's findings and plan as documented. SUBJECTIVE: Feeling better - still has ongoing RUQ abdominal pain along with chronic back pain. No fever/chills/nausea/vomiting. OBJECTIVE: Afebrile, Hemodynamically Stable Last Vital Signs Temp Pulse Resp BP Pulse Ox 97.8 F 73 18 130/84 96 04/19/20 12:00 04/19/20 12:00 04/19/20 12:00 04/19/20 12:00 04/19/20 12:00 HEENT - Atraumatic, Normocephalic. Heart - S1, S2, RRR Lungs - clear to auscultation Abdomen - Soft, RUQ tenderness. No guarding/rebound. Bowel Sounds normal Extremities - RLE edema +, venous stasis, no calf tenderness. Neuro - AAO x 3. Tone/Power normal all extremities. Laboratory Results - last 24 hr 04/18/20 04/19/20 04/19/20 21:06 07: 07:20 WBC 7.9 RBC 3.50 L Hgb 10.6 L Hct 31.4 L MCV 89.7 MCH 30.2 MCHC 33.7 RDW 14.5 Plt Count 229 MPV 7.9 Sodium 139 Potassium 3.4 L Chloride 101 Carbon Dioxide 28 Anion Gap 9 BUN 12.7 Creatinine 0.9 Est GFR (CKD-EPI)AfAm 84.61 Est GFR (CKD-EPI)NonAf 73.00 Random Glucose 120 H Calcium 8.4 L Total Bilirubin 0.4 AST 88 H ALT 133 H Alkaline Phosphatase 77 Total Protein 7.1 Albumin 3.4 Urine Color Yellow Urine Appearance Clear Urine pH 5.0 Ur Specific Dol[place] > 1.035 H Urine Protein Trace Urine Glucose (UA) Negative Urine Ketones Trace H Urine Blood Negative Urine Nitrite Negative Urine Bilirubin Negative Urine Urobilinogen 1.0 Ur Leukocyte Esterase Negative Urine WBC (Auto) 17.6 Urine RBC (Auto) 22 Urine Casts (Auto) 1.46 U Epithel Cells (Auto) 44.5 Urine Bacteria (Auto) 713.1 Current Medications Generic Name Dose Route Start Last Admin Trade Name Freq PRN Reason Stop Dose Admin Albuterol Sulfate 1 amp 04/18/20 22:00 Ventolin 0.083% Nebulizer Soln - NEB Q8H PRN SHORT OF BREATH/WHEEZING Aspirin 81 mg 04/18/20 19:15 04/19/20 09:34 Ecotrin - PO 81 mg DAILY FRANNIE Administration Baclofen 10 mg 04/18/20 22:00 04/19/20 09:34 Lioresal - PO 10 mg BID FRANNIE Administration Budesonide/Formoterol Fumarate 2 puff 04/18/20 22:00 04/19/20 09:43 Symbicort 160/4.5mcg - IH 2 puff BID FRANNIE Administration Duloxetine HCl 20 mg 04/18/20 19:15 04/19/20 10:54 Cymbalta - PO 20 mg DAILY FRANNIE Administration Enoxaparin Sodium 40 mg 04/18/20 18:00 04/19/20 09:34 Lovenox - SQ 40 mg DAILY FRANNIE Administration Pantoprazole Sodium 40 mg 04/18/20 19:15 04/19/20 09:34 Protonix - PO 40 mg DAILY FRANNIE Administration Potassium Chloride 20 meq 04/18/20 19:15 04/19/20 13:52 K-Dur - PO 20 meq DAILY FRANNIE Administration Tiotropium [place] 2 puff 04/18/20 19:15 04/19/20 09:43 Spiriva Respimat IH 2 puff DAILY FRANNIE Administration Torsemide 40 mg 04/18/20 19:15 04/19/20 10:53 Demadex - PO 40 mg DAILY FRANNIE Administration Tramadol HCl 25 mg 04/18/20 20:36 04/19/20 11:08 Ultram - PO 25 mg Q6H PRN Administration PAIN LEVEL 7 - 10 Home Medications Medication Instructions Recorded Aspirin [Aspirin EC] 81 mg PO DAILY 11/12/18 Ergocalciferol (Vitamin D2) 50,000 unit PO TU 11/12/18 [Vitamin D2] Ferrous Sulfate 325 mg PO BID 11/12/18 Levothyroxine [Synthroid -] 25 mcg PO DAILY 11/12/18 Pantoprazole Sodium [Protonix -] 40 mg PO DAILY 11/12/18 Atorvastatin Ca [Lipitor] 10 mg PO HS 01/16/19 Carvedilol [Coreg -] 25 mg PO BID 05/13/19 Potassium Chloride [K-Dur -] 20 meq PO DAILY #30 tablet.er 05/16/19 Cetirizine HCl [Zyrtec -] 10 mg PO DAILY 12/17/19 Albuterol 0.083% Nebulizer Alia 1 neb NEB TID 04/18/20 [Ventolin 0.083%] Albuterol 2.5/Ipratropium 0.5 1 inh NEB TID 04/18/20 [Duoneb -] Albuterol Sulfate Inhaler - 1 - 2 inh PO PRN PRN 04/18/20 [Ventolin HFA Inhaler -] Baclofen 10 mg PO BID 04/18/20 Budesonide/Formeterol Fumarate 2 inh PO BID 04/18/20 [SYMBICORT 160/4.5mcg -] Duloxetine HCl [Drizalma Sprinkle] 20 mg PO DAILY 04/18/20 Tiotropium [place] [Spiriva 2 puff IH DAILY 04/18/20 Respimat] Torsemide 40 mg PO DAILY 04/18/20 Meclizine HCl 25 mg PO PRN 04/19/20 ASSESSMENT AND PLAN: 55 year old female with history of Chronic Diastolic CHF, HTN, HLD, Hypothyroidism, Asthma/COPD, Depression/Anxiety, prior Alcohol excess and cocaine use, who presents with RUQ abdominal pain/nausea/non-bloody vomiting. 1. Acute Hepatitis, etiology unclear CT A/P- no evidenc eo fcholecystitis or biliary tree dilatation. Reported recent excessive Tylenol use 4-5g/day, Tylenol level normal. Acute Hepatitis viral screen pending (prior Hx alcohol and cocaine use, denies IV drug use). Statin held. Monitor LFTs. GI eval. 2. Chronic Diastolic CHF EF normal 08/2019 Continue Torsemide Continue BB. 3. HTN - Continue Coreg. 4. Asthma/COPD - appears stable - continue Ventolin, Spiriva, Symbicort. 5. Hypothyroiidism - Continue Synthroid. 6. RLE>LLE - US Duplex negative for DVT. 7. Depression/Anxiety - continue Duloxetine. 8. Chronic Back Pain - chronic stable L5 compression fracture. Follows with Pain Management Dr. Huynh. Tramadol PRN as in-patient. 9. Hypokalemia - repleted. 10. RML and stable lingular opacity on CT Chest - for out-patient Pulmonary referral. DVT Px - Lovenox SQ
[2020-04-19] MEDS ORDERED: ALBUTEROL SO4 HFA INHALER IH PRN (16:44)
[2020-04-19] MEDS ORDERED: ERGOCALCIFEROL (VIT D2) 50,000 UNIT (1.25 MG) CAPSULE PO SCH (16:45)
[2020-04-19] MEDS: FERROUS SO4 325 MG TABLET (FP) PO SCH (17:35)
[2020-04-19] MEDS ORDERED: POLYETHYLENE GLYCOL 3350 119 GM BTL PO SCH (17:48)
--- NOTE | 2020-04-19 18:45 | PN ---
Physical Exam: SUBJECTIVE: Patient seen and examined at bedside. The patient continues to 7/10 right upper quadrant abdominal pain. The patient reports feeling some constipation and not having had a bowel movement in 2 days. The patient also reports some shortness of breath on exertion, which she believes is due to her asthma. The patient denies fever/chills, nausea/vomiting, and diarrhea. The patient denies any recent tobacco, alcohol, or drug use. She reports also taking LARISSA injections for weight loss. Dr. Huynh explained to me over the phone that LARISSA injections contain Methionine, Inositol, and Choline, and are unlikely to be a cause of her increased liver enzymes. OBJECTIVE: Vital Signs Period Temp Pulse Resp BP Sys/Sigala Pulse Ox Last 24 Hr 97.6 F-98.1 F 73-91 18-20 114-151/84-93 95-96 GENERAL: The patient is awake, alert, and fully oriented, in no acute distress. HEAD: Normal with no signs of trauma. EYES: Extraocular movements intact. No ptosis. ENT: Ears normal, nares patent, oropharynx clear without exudates, moist mucous membranes. NECK: Trachea midline, full range of motion, supple. LUNGS: Breath sounds equal, clear to auscultation bilaterally, no wheezes, no crackles, no accessory muscle use. HEART: Regular rate and rhythm, S1, S2 without murmur, rub or gallop. ABDOMEN: Soft, tender to palpation of RUQ, nondistended, normoactive bowel sounds, no guarding, no rebound, no masses. EXTREMITIES: 2+ pulses, warm, well-perfused, Right LE edema with venous stasis. NEUROLOGICAL: Normal speech, gait not observed. PSYCH: Normal mood, normal affect. SKIN: Warm, dry, normal turgor, no rashes or lesions noted Laboratory Results - last 24 hr 04/18/20 04/19/20 04/19/20 21:06 07:20 07:20 WBC 7.9 RBC 3.50 L Hgb 10.6 L Hct 31.4 L MCV 89.7 MCH 30.2 MCHC 33.7 RDW 14.5 Plt Count 229 MPV 7.9 Sodium 139 Potassium 3.4 L Chloride 101 Carbon Dioxide 28 Anion Gap 9 BUN 12.7 Creatinine 0.9 Est GFR (CKD-EPI)AfAm 84.61 Est GFR (CKD-EPI)NonAf 73.00 Random Glucose 120 H Calcium 8.4 L Total Bilirubin 0.4 AST 88 H ALT 133 H Alkaline Phosphatase 77 Total Protein 7.1 Albumin 3.4 Urine Color Yellow Urine Appearance Clear Urine pH 5.0 Ur Specific [place] > 1.035 H Urine Protein Trace Urine Glucose (UA) Negative Urine Ketones Trace H Urine Blood Negative Urine Nitrite Negative Urine Bilirubin Negative Urine Urobilinogen 1.0 Ur Leukocyte Esterase Negative Urine WBC (Auto) 17.6 Urine RBC (Auto) 22 Urine Casts (Auto) 1.46 U Epithel Cells (Auto) 44.5 Urine Bacteria (Auto) 713.1 Active Medications Generic Name Dose Route Start Last Admin Trade Name Freq PRN Reason Stop Dose Admin Albuterol Sulfate 1 amp 04/18/20 22:00 Ventolin 0.083% Nebulizer Soln - NEB Q8H PRN SHORT OF BREATH/WHEEZING Aspirin 81 mg 04/18/20 19:15 04/19/20 09:34 Ecotrin - PO 81 mg DAILY FRANNIE Administration Baclofen 10 mg 04/18/20 22:00 04/19/20 09:34 Lioresal - PO 10 mg BID FRANNIE Administration Budesonide/Formoterol Fumarate 2 puff 04/18/20 22:00 04/19/20 09:43 Symbicort 160/4.5mcg - IH 2 puff BID FRANNIE Administration Carvedilol 25 mg 04/19/20 22:00 Coreg - PO BID [facility] Duloxetine HCl 20 mg 04/18/20 19:15 04/19/20 10:54 Cymbalta - PO 20 mg DAILY FRANNIE Administration Enoxaparin Sodium 40 mg 04/18/20 18:00 04/19/20 09:34 Lovenox - SQ 40 mg DAILY [facility] Administration Ergocalciferol 50,000 unit 04/19/20 16:45 04/19/20 17:53 Drisdol - PO 50,000 unit Tu@1000 [facility] Administration Ferrous Sulfate 325 mg 04/19/20 17:30 04/19/20 17:35 Feosol - PO 325 mg BIDLS [facility] Administration Levothyroxine Sodium 25 mcg 04/20/20 07:00 Synthroid - PO DAILY@0700 [facility] Pantoprazole Sodium 40 mg 04/18/20 19:15 04/19/20 09:34 Protonix - PO 40 mg DAILY FRANNIE Administration Polyethylene Glycol 17 gm 04/19/20 17:48 Miralax (For Daily Use) - PO DAILY FRANNIE Potassium Chloride 20 meq 04/18/20 19:15 04/19/20 13:52 K-Dur - PO 20 meq DAILY FRANNIE Administration Tiotropium [place] 2 puff 04/18/20 19:15 04/19/20 09:43 Spiriva Respimat IH 2 puff DAILY FRANNIE Administration Torsemide 40 mg 04/18/20 19:15 04/19/20 10:53 Demadex - PO 40 mg DAILY FRANNIE Administration Tramadol HCl 25 mg 04/18/20 20:36 04/19/20 17:36 Ultram - PO 25 mg Q6H PRN Administration PAIN LEVEL 7 - 10 ASSESSMENT/PLAN: 55 year old female patient with past medical history that includes diastolic CHF, HTN, HLD, Hypothyroidism, Alcohol and Cocaine abuse, asthma, and chronic back pain on steroid injections, who presented to the ED with right upper quadrant pain for 2 weeks with nausea and yellow nonbloody vomit after drinking 4-5g of Tylenol per day for her back pain. 1. Acute Hepatitis possibly secondary to statin or medication use vs. viral infection - Statin held secondary to elevated liver enzymes. - Tylenol is < 2.0 - Hepatitis viruses pending - CT Abdomen/Pelvis shows no gallbladder pathology - GI consulted - monitoring LFTs - 04/15 pain right upper quadrant pain likely secondary to capsular distention of the liver secondary to the acute hepatitis 2. Chronic back pain - The patient reported that her pain medicine doctor is Dr. Abdi Huynh - The patient is taking Tramadol as needed 3. Diastolic CHF - ECHO from 08/2019 shows a normal EF - The patient is taking Torsemide and Carvedilol 4. HTN - The patient is taking Carvedilol 5. HLD - Statin held as it may be a possible etiology for her elevated liver enzymes 6. Hypothyroidism - The patient is taking levothyroxine 7. Asthma - The patient is taking albuterol, symbicort, spiriva # FEN - PO fluids. The patient is on a cholesterol/fat controlled diet. Monitoring electrolytes. DVT PPx - Lovenox Sq Visit type - Emergency Visit Emergency Visit: Yes ED Registration Date: 04/18/20 Care time: The patient presented to the Emergency Department on the above date and was hospitalized for further evaluation of their emergent condition. - New Patient This patient is new to me today: Yes Date on this admission: 04/19/20 - Critical Care Critical Care patient: No - Discharge Referral Referred to [facility] No ATTENDING PHYSICIAN STATEMENT I saw and evaluated the patient. I reviewed the resident's note and discussed the case with the resident. I agree with the resident's findings and plan as documented. SUBJECTIVE: OBJECTIVE: ASSESSMENT AND PLAN:
--- NOTE | 2020-04-19 19:00 | CON.GI ---
Consult Consult Specialty:: Gastroenterology ( covering the [facility] service) Referred by:: Dr Kevin Otero Reason for Consultation:: Abnormal LFTs. N/V - History of Present Illness Chief Complaint: Bloating pain. N/V. Constipation History of Present Illness: 55F admitted for N/V, postprandial bloating and inability to eat. This occurs in the setting of constipation triggered over a month ago by Robaxin and other pain relievers given for her back pain. She had an EGD and a colonoscopy in 2019 at [facility]. Benign polyps were removed but she was told that the studies were otherwise unremarkable. Prior to that she describes frequent daily BMs with the inability to relieve herself completely. She drank alcohol modestly until 2017. None since then. - History Source History Provided By: Patient Limitations to Obtaining History: No Limitations - Past Medical History Cardio/Vascular: Yes: CHF (diastolic), HTN Pulmonary: Yes: Asthma (seasonal) Gastrointestinal: Yes: Constipation, Other (colon polyps removed 2018 at [facility], EGD unremarkable 2018 at [facility]) Hepatobiliary: Yes: Other (fatty liver) Renal/: Yes: Renal Inusuff ...LMP: 01/09/19 ...: No Heme/Onc: Yes: Anemia Musculoskeletal: Yes: Chronic low back pain (lumbar fracture after fall [facility] - Dr. 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 (year[place] age 3 History of Recent Travel: No Home Medications - Allergies Allergies/Adverse Reactions: Allergies Allergy/AdvReac Type Severity Reaction Status Date / Time gabapentin AdvReac Intermediate Swelling Verified 04/18/20 12:27 methocarbamol [From Robaxin] AdvReac Intermediate Swelling Verified 04/18/20 12:27 - Home Medications Home Medications: Ambulatory Orders Aspirin [Aspirin EC] 81 mg PO DAILY 11/12/18 Ergocalciferol (Vitamin D2) [Vitamin D2] 50,000 unit PO TU 11/12/18 Ferrous Sulfate 325 mg PO BID 11/12/18 Levothyroxine [Synthroid -] 25 mcg PO DAILY 11/12/18 Pantoprazole Sodium [Protonix -] 40 mg PO DAILY 11/12/18 Atorvastatin Ca [Lipitor] 10 mg PO HS 01/16/19 Carvedilol [Coreg -] 25 mg PO BID 05/13/19 Potassium Chloride [K-Dur -] 20 meq PO DAILY #30 tablet.er 05/16/19 Cetirizine HCl [Zyrtec -] 10 mg PO DAILY 12/17/19 Albuterol 0.083% Nebulizer Alia [Ventolin 0.083%] 1 neb NEB TID 04/18/20 Albuterol 2.5/Ipratropium 0.5 [Duoneb -] 1 inh NEB TID 04/18/20 Albuterol Sulfate Inhaler - [Ventolin HFA Inhaler -] 1 - 2 inh PO PRN PRN 04/18/20 Baclofen 10 mg PO BID 04/18/20 Budesonide/Formeterol Fumarate [SYMBICORT 160/4.5mcg -] 2 inh PO BID 04/18/20 Duloxetine HCl [Drizalma Sprinkle] 20 mg PO DAILY 04/18/20 Tiotropium [place] [Spiriva Respimat] 2 puff IH DAILY 04/18/20 Torsemide 40 mg PO DAILY 04/18/20 Meclizine HCl 25 mg PO PRN 04/19/20 Family Medical History Family Hx Congestive Heart Failure: Father ( 88 of CHF) Family Hx Diabetes: Mother, Father Review of Systems - Review of Systems Constitutional: reports: Malaise, Other (weight gain) Eyes: reports: No Symptoms HENT: reports: No Symptoms Neck: reports: No Symptoms Cardiovascular: reports: Shortness of Breath Respiratory: reports: Exercise Intolerance Gastrointestinal: reports: Abdominal Pain, Bloating, Constipation, Other (2019 EGD and colonoscopy at [facility]- had benign polyps rmeovaed and was todl preeti study was unremarkable otherwise) Musculoskeletal: reports: Back Pain, Extremity Pain, Joint Pain Physical Exam-GI Vital Signs: Vital Signs Temperature 97.6 F 04/19/20 18:00 Pulse Rate 73 04/19/20 18:00 Respiratory Rate 18 04/19/20 18:00 Blood Pressure 141/92 04/19/20 18:00 O2 Sat by Pulse Oximetry (%) 96 04/19/20 12:00 CBC,CMP WBC 7.9 K/mm3 (4.0-10.0) 04/19/20 07:20 RBC 3.50 M/mm3 (3.60-5.2) L 04/19/20 07:20 Hgb 10.6 GM/dL (10.7-15.3) L 04/19/20 07: Hct 31.4 % (32.4-45.2) L 04/19/20 07: MCV 89.7 fl (80-96) 04/19/20 07:20 MCH 30.2 pg (25.7-33.7) 04/19/20 07: MCHC 33.7 g/dl (32.0-36.0) 04/19/20 07:20 RDW 14.5 % (11.6-15.6) 04/19/20 07:20 Plt Count 229 K/MM3 (134-434) 04/19/20 07:20 MPV 7.9 fl (7.5-11.1) 04/19/20 07:20 Absolute Neuts (auto) 5.9 K/mm3 (1.5-8.0) 04/18/20 13:00 Neutrophils % 66.5 % (42.8-82.8) 04/18/20 13:00 Lymphocytes % 23.2 % (8-40) D 04/18/20 13:00 Monocytes % 6.3 % (3.8-10.2) 04/18/20 13:00 Eosinophils % 3.5 % (0-4.5) 04/18/20 13:00 Basophils % 0.5 % (0-2.0) 04/18/20 13:00 Nucleated RBC % 0 % (0-0) 04/18/20 13:00 Sodium 139 mmol/L (136-145) 04/19/20 07:20 Potassium 3.4 mmol/L (3.5-5.1) L 04/19/20 07:20 Chloride 101 mmol/L (98-107) 04/19/20 07:20 Carbon Dioxide 28 mmol/L (21-32) 04/19/20 07:20 Anion Gap 9 MMOL/L (8-16) 04/19/20 07:20 BUN 12.7 mg/dL (7-18) 04/19/20 07:20 Creatinine 0.9 mg/dL (0.55-1.3) 04/19/20 07:20 Est GFR (CKD-EPI)AfAm 84.61 04/19/20 07:20 Est GFR (CKD-EPI)NonAf 73.00 04/19/20 07:20 Random Glucose 120 mg/dL (74-106) H 04/19/20 07:20 Lactic Acid 2.1 mmol/L (0.4-2.0) H 04/18/20 13:50 Calcium 8.4 mg/dL (8.5-10.1) L 04/19/20 07:20 Total Bilirubin 0.4 mg/dL (0.2-1) 04/19/20 07:20 AST 88 U/L (15-37) H 04/19/20 07:20 ALT 133 U/L (13-61) H 04/19/20 07:20 Alkaline Phosphatase 77 U/L (45-117) 04/19/20 07:20 Total Protein 7.1 g/dl (6.4-8.2) 04/19/20 07:20 Albumin 3.4 g/dl (3.4-5.0) 04/19/20 07:20 Lipase 317 U/L (73-393) 04/18/20 13:00 Lipase Cancelled 04/18/20 13:00 Current Medications Generic Name Dose Route Start Last Admin Trade Name Freq PRN Reason Stop Dose Admin Albuterol Sulfate 1 amp 04/18/20 22:00 Ventolin 0.083% Nebulizer Soln - NEB Q8H PRN SHORT OF BREATH/WHEEZING Aspirin 81 mg 04/18/20 19:15 04/19/20 09:34 Ecotrin - PO 81 mg DAILY FRANNIE Administration Baclofen 10 mg 04/18/20 22:00 04/19/20 09:34 Lioresal - PO 10 mg BID FRANNIE Administration Budesonide/Formoterol Fumarate 2 puff 04/18/20 22:00 04/19/20 09:43 Symbicort 160/4.5mcg - IH 2 puff BID FRANNIE Administration Carvedilol 25 mg 04/19/20 22:00 Coreg - PO BID FRANNIE Duloxetine HCl 20 mg 04/18/20 19:15 04/19/20 10:54 Cymbalta - PO 20 mg DAILY FRANNIE Administration Enoxaparin Sodium 40 mg 04/18/20 18:00 04/19/20 09:34 Lovenox - SQ 40 mg DAILY FRANNIE Administration Ergocalciferol 50,000 unit 04/19/20 16:45 04/19/20 17:53 Drisdol - PO 50,000 unit Tu@1000 FRANNIE Administration Ferrous Sulfate 325 mg 04/19/20 17:30 04/19/20 17:35 Feosol - PO 325 mg BIDLS FRANNIE Administration Levothyroxine Sodium 25 mcg 04/20/20 07:00 Synthroid - PO DAILY@0700 FRANNIE Pantoprazole Sodium 40 mg 04/18/20 19:15 04/19/20 09:34 Protonix - PO 40 mg DAILY FRANNIE Administration Polyethylene Glycol 17 gm 04/19/20 17:48 04/19/20 18:29 Miralax (For Daily Use) - PO 17 gm DAILY FRANNIE Administration Potassium Chloride 20 meq 04/18/20 19:15 04/19/20 13:52 K-Dur - PO 20 meq DAILY FRANNIE Administration Tiotropium [place] 2 puff 04/18/20 19:15 04/19/20 09:43 Spiriva Respimat IH 2 puff DAILY FRANNIE Administration Torsemide 40 mg 04/18/20 19:15 04/19/20 10:53 Demadex - PO 40 mg DAILY FRANNIE Administration Tramadol HCl 25 mg 04/18/20 20:36 04/19/20 17:36 Ultram - PO 25 mg Q6H PRN Administration PAIN LEVEL 7 - 10 Constitutional: Yes: Anxious Eyes: Yes: Conjunctiva Clear HENT: Yes: Atraumatic Neck: Yes: Trachea Midline Cardiovascular: Yes: Regular Rate and Rhythm Respiratory: Yes: CTA Bilaterally Gastrointestinal Inspection: Yes: Distention, Scars (healed robotic incisions) ...Auscultate: Yes: Hypoactive Bowel Sounds ...Palpate: Yes: Soft, Other (nontender) ...Percussion: Yes: Tympanitic ...Rectal Exam: Yes: Guaiac Negative (full of soft guaiac negative stool), Hemorrhoids/External Edema: No Neurological: Yes: Alert, Oriented Labs: CBC, BMP 04/19/20 07:20 04/19/20 07:20 INR, PTT INR 0.96 (0.83-1.09) 04/18/20 13:00 Laboratory Tests 04/06/11 07/20/11 01/19/12 08:54 17:53 18:00 Plt Count GGT Iron Iron Saturation Liver Fibrosis Score Ferritin Total Bilirubin ALT 37 AST 7 L D 12 L Alkaline Phosphatase Tumor Marker AFP GEOFFREY Screen COVID-19 (IVANA) HIV-1 Ab Rapid Screen NEGATIVE Hepatitis C Antibody Hep A IgM Ab Confirm Hep Bs Antigen Hep B Core IgM Ab Hepatitis C Ab (EIA) 05/05/16 01/03/17 03/04/17 15:03 18:10 11:50 Plt Count GGT Iron Iron Saturation Liver Fibrosis Score Ferritin Total Bilirubin ALT 59 D AST 14 L D 41 H D Alkaline Phosphatase Tumor Marker AFP GEOFFREY Screen COVID-19 (IVANA) HIV-1 Ab Rapid Screen Hepatitis C Antibody <0.1 Hep A IgM Ab Confirm Hep Bs Antigen Hep B Core IgM Ab Hepatitis C Ab (EIA) 03/05/17 08/11/17 08/07/18 07:00 13:33 09:00 Plt Count GGT 29 Iron Iron Saturation Liver Fibrosis Score 0.01 Ferritin Total Bilirubin ALT 22 D 64 H AST 45 H 14 L D 52 H Alkaline Phosphatase Tumor Marker AFP 1.9 GEOFFREY Screen COVID-19 (IVANA) HIV-1 Ab Rapid Screen Hepatitis C Antibody Hep A IgM Ab Confirm Hep Bs Antigen Hep B Core IgM Ab Hepatitis C Ab (EIA) 08/08/18 01/23/19 05/14/19 05:30 14:50 05:05 Plt Count GGT Iron Iron Saturation Liver Fibrosis Score Ferritin Total Bilirubin ALT 44 29 AST 29 Alkaline Phosphatase Tumor Marker AFP GEOFFREY Screen COVID-19 (IVANA) HIV-1 Ab Rapid Screen Hepatitis C Antibody Hep A IgM Ab Confirm Hep Bs Antigen Hep B Core IgM Ab Hepatitis C Ab (EIA) 08/08/19 12/04/19 12/08/19 06:22 11:30 13:00 Plt Count GGT Iron 50 Iron Saturation 15 L Liver Fibrosis Score Ferritin 57.5 Total Bilirubin ALT 37 AST 14 L 26 Alkaline Phosphatase 90 Tumor Marker AFP GEOFFREY Screen Positive COVID-19 (IVANA) HIV-1 Ab Rapid Screen Hepatitis C Antibody Hep A IgM Ab Confirm Hep Bs Antigen Hep B Core IgM Ab Hepatitis C Ab (EIA) 04/18/20 04/18/20 04/18/20 13:00 16:51 17:17 Plt Count GGT Iron Iron Saturation Liver Fibrosis Score Ferritin Total Bilirubin ALT 127 H AST 73 H Alkaline Phosphatase 88 Tumor Marker AFP GEOFFREY Screen COVID-19 (IVANA) Pending HIV-1 Ab Rapid Screen Hepatitis C Antibody Hep A IgM Ab Confirm Pending Hep Bs Antigen Pending Hep B Core IgM Ab Pending Hepatitis C Ab (EIA) Pending 04/19/20 04/19/20 07:20 07:20 Plt Count 229 GGT Iron Iron Saturation Liver Fibrosis Score Ferritin Total Bilirubin 0.4 ALT 133 H AST 88 H Alkaline Phosphatase 77 Tumor Marker AFP GEOFFREY Screen COVID-19 (IVANA) HIV-1 Ab Rapid Screen Hepatitis C Antibody Hep A IgM Ab Confirm Hep Bs Antigen Hep B Core IgM Ab Hepatitis C Ab (EIA) Imaging - Results Cat Scan: Report Reviewed ( Final Report CT ABDOMEN & PELVIS CT WITH CONTR Show Printer-Friendly Version Patient Name: Lambert Erazo : 1965 ID: [id number] Study Date: 18-Apr-2020 14:50 Raffy Martin Name: LAMBERT ERAZO DEPARTMENT OF RADIOLOGY Phys: JaredTrey RES EM : 1965 Age: 55 Sex: F [facility] Acct: [id number] Loc: [address] Exam Date: 04/18/20 Status: [id number] Unit Number: [id number] EXAM#: TYPE/EXAM: RESULT: [id number] CT/ABDOMEN PELVIS CT WITH CONTR Abdomen and pelvis CT with intravenous contrast Clinical information: right-sided abdominal pain, distention; evaluate for ascites, hepatitis Multiplanar imaging was performed following the intravenous administration of nonionic contrast. No evidence of pneumoperitoneum, abscess, free intraperitoneal fluid or bowel obstruction. In comparison to a prior CT exam of 01/16/2019 interval development of diffuse fatty infiltration of the liver is noted. There is resultant increased hepatomegaly. No obvious mass lesion is seen. There is minimal splenomegaly without interval change. The appendix appears unremarkable. No gross small bowel pathology is identified allowing for lack of intraluminal contrast. There is no obvious CT evidence of acute colitis. No evidence of acute diverticulitis. The pancreas, gallbladder, adrenal glands and kidneys demonstrate no discrete abnormality. No biliary tract dilatation is visualized .There is no aortic aneurysm. No definite lymphadenopathy is noted on the basis of size criteria. Mild prostate enlargement. A trace amount of fluid is seen within the urinary bladder lumen limiting evaluation. Note is again made of a minimal to mild chronic fracture along the right lateral half of the L5 superior endplate. No bony retropulsion is noted. Moderate to marked L5- S1 degenerative disc space narrowing. IMPRESSION: Diffuse hepatic steatosis is noted with associated hepatomegaly - ? representing acute hepatitis versus noninflammatory change. Correlate clinically. This finding was not definitely present on a prior CT study of 01/16/2019. Minimal stable splenomegaly. Chronic stable minimal to mild L5 superior endplate compression fracture. In comparison to a chest CT exam of 03/12/2019 interval development of a small wedge-shaped opacity is noted within the right middle lobe ventrally probably on the basis of atelectasis, less likely representing a small infiltrate. Correlate clinically. Note is again made of a similar stable opacity within the lingula without interval change. Reported By: Jacob Harvey MD 04/18/201618 TREY FRITZ Technologist: Katia Saldaña Transcribed Date/Time: 04/18/201618 Dry Kiln Operator Helper: Jacob Harvey Printed Date/Time: By: Signed by: Jacob Harvey Signed on: 18-Apr-2020 16:20) Problem List - Problems (1) Abdominal pain Code(s): R10.9 - UNSPECIFIED ABDOMINAL PAIN Qualifiers: Abdominal location: right upper quadrant Qualified Code(s): R10.11 - Right upper quadrant pain (2) Abnormal liver enzymes Code(s): R74.8 - ABNORMAL LEVELS OF OTHER SERUM ENZYMES (3) Fatty liver Code(s): K76.0 - FATTY (CHANGE OF) LIVER, NOT ELSEWHERE CLASSIFIED (4) Constipation Code(s): K59.00 - CONSTIPATION, UNSPECIFIED (5) Fecal impaction of colon Code(s): K56.41 - FECAL IMPACTION (6) Colon polyps Code(s): K63.5 - POLYP OF COLON (7) Hepatitis Code(s): K75.9 - INFLAMMATORY LIVER DISEASE, UNSPECIFIED (8) Back pain with radiculopathy Code(s): M54.10 - RADICULOPATHY, SITE UNSPECIFIED (9) CHF (congestive heart failure) Code(s): I50.9 - HEART FAILURE, UNSPECIFIED Qualifiers: Heart failure type: systolic Heart failure chronicity: chronic Qualified Code(s): I50.22 - Chronic systolic (congestive) heart failure (10) History of robot-assisted laparoscopic hysterectomy Code(s): Z90.710 - ACQUIRED ABSENCE OF BOTH CERVIX AND UTERUS (11) Asthma Code(s): J45.909 - UNSPECIFIED ASTHMA, UNCOMPLICATED Qualifiers: Asthma severity: moderate persistent Asthma complication type: with acute exacerbation (12) Compression fracture Code(s): BEA3500 - (13) Hypertension Code(s): I10 - ESSENTIAL (PRIMARY) HYPERTENSION Qualifiers: Hypertension type: essential hypertension Qualified Code(s): I10 - Essential (primary) hypertension (14) Hypothyroidism Code(s): E03.9 - HYPOTHYROIDISM, UNSPECIFIED (15) Obesity (BMI 30-39.9) Code(s): E66.9 - OBESITY, UNSPECIFIED Assessment/Plan Impression: - I believe that the change in liver fat content by imaging while she has been abstaining from alcohol suggests that Lambert has GERARDO. Her 08/25 echo does not support congestive hepatopathy as her RV and LV function is good - Her N/V, bloating is due to fecal impaction aggravated by Baclofen which had earlier caused paradoxical diarrhea - Colon polyps Plan: -- Miralax TID to relieve the fecal impaction. Need to take at least once daily indefinitely to try to offset the constipating effects of Baclofen and her lack of exercise -- Please refer Lambert after discharge to see my partner Dr Chad Cortes who can do a Fibroscan to determine at which stage of fatty liver disease Lambert is in. He can also draw liver studies that cannot be obtained on inpatients, ie ceruloplasmin. I have advised a Weight watchers type diet and exercise to promote weight loss. -- Mobilize as much as is possible, PT Dr Kidd will be covering tomorrow and on this weekend
[2020-04-19] MEDS: CARVEDILOL 25 MG TABLET (FP) PO SCH (21:24)
[2020-04-19] MEDS ORDERED: ALBUTEROL SO4 2.5/IPRATROPIUM 0.5 INH SOL 3 ML VIAL.NEB. NEB SCH ×2 (22:00)
[2020-04-20] MEDS ORDERED: LEVOTHYROXINE NA 25 MCG TABLET (FP) PO SCH (07:00)
[2020-04-20] MEDS ORDERED: POTASSIUM CHLORIDE TABS 20 MEQ TABLET.ER (FP) PO ONE (07:21)
[2020-04-20 08:12] LABS: HEMATOCRIT 32.1 % (32.4-45.2); HEMOGLOBIN 10.7 GM/dL (10.7-15.3); MCH 29.8 pg (25.7-33.7); MCHC 33.2 g/dl (32.0-36.0); MEAN CELL VOLUME 89.8 fl (80-96); PLATELET COUNT 233 K/MM3 (134-434); RBC 3.57 M/mm3 (3.60-5.2); RDW 14.3 % (11.6-15.6); WHITE BLOOD COUNT 7.5 K/mm3 (4.0-10.0)
[2020-04-20] MEDS: traMADol HCL 50 MG TABLET PO PRN ×2 (08:14→15:26)
[2020-04-20 08:37] LABS: ALBUMIN 3.2 g/dl (3.4-5.0); BILIRUBIN,DIRECT 0.2 mg/dL (0.0-0.2); BILIRUBIN,TOTAL 0.6 mg/dL (0.2-1); BLOOD UREA NITROGEN 14.4 mg/dL (7-18); CALCIUM 8.2 mg/dL (8.5-10.1); CREATININE 0.9 mg/dL (0.55-1.3); MAGNESIUM 1.9 mg/dL (1.8-2.4); PHOSPHOROUS 2.6 mg/dL (2.5-4.9); POTASSIUM 3.8 mmol/L (3.5-5.1); TOT PROT 6.9 g/dl (6.4-8.2)
[2020-04-20] MEDS ORDERED: PT OWN MED DRAWER 7, Y5N ONE (09:12)
[2020-04-20] MEDS: BACLOFEN 10 MG TABLET (FP) PO SCH (09:14)
[2020-04-20] MEDS: CARVEDILOL 25 MG TABLET (FP) PO SCH (09:14)
[2020-04-20] MEDS: PANTOPRAZOLE 40 MG TABLET PO SCH (09:14)
[2020-04-20] MEDS: ASPIRIN COATED 81 MG TABLET.EC PO SCH (09:14)
[2020-04-20] MEDS: TORSEMIDE 20 MG TABLET (FP) PO SCH (09:15)
[2020-04-20] MEDS: DULoxetine HCL 20 MG CAPSULE.DR PO SCH (09:15)
[2020-04-20] MEDS: ENOXAPARIN NA (PORCINE) 40 MG/0.4 ML DISP.SYRIN SQ SCH (09:15)
[2020-04-20] MEDS: BUDESONIDE/FORMETEROL FUMARATE 160/4.5 mcg INHALER IH SCH (09:22)
[2020-04-20] MEDS: TIOTROPIUM BROMIDE 2.5 MCG (SPIRIVA) RESPIMAT INHALER IH SCH (09:22)
[2020-04-20] MEDS ORDERED: MAGNESIUM HYDROX 2400MG/30ML ORAL SUSPENSION 30 ML CUP PO ONE (10:44)
[2020-04-20] MEDS ORDERED: POLYETHYLENE GLYCOL 3350 119 GM BTL PO ONE (10:44)
[2020-04-20] MEDS: POTASSIUM CHLORIDE TABS 20 MEQ TABLET.ER (FP) PO SCH (12:20)
[2020-04-20] MEDS: FERROUS SO4 325 MG TABLET (FP) PO SCH ×2 (12:20→17:29)
[2020-04-20] MEDS ORDERED: POLYETHYLENE GLYCOL 3350 119 GM BTL PO SCH (14:00)
--- NOTE | 2020-04-20 15:06 | PN ---
Teaching Attending Note Name of Resident: Phill Cunningham ATTENDING PHYSICIAN STATEMENT I saw and evaluated the patient. I reviewed the resident's note and discussed the case with the resident. I agree with the resident's findings and plan as documented. SUBJECTIVE: Feeling much better - RUQ abdominal pain improving. No fever/chills/nausea/vomiting. OBJECTIVE: Afebrile, Hemodynamically Stable Last Vital Signs Temp Pulse Resp BP Pulse Ox 98.1 F 68 18 135/84 94 L 04/20/20 09:59 04/20/20 09:59 04/20/20 09:59 04/20/20 09:59 04/20/20 09:59 Heart - S1, S2, RRR Lungs - clear to auscultation Abdomen - Soft, some RUQ tenderness. No guarding/rebound. Bowel Sounds normal Extremities - RLE edema +, venous stasis, no calf tenderness. Neuro - AAO x 3. Tone/Power normal all extremities. Laboratory Results - last 24 hr 04/18/20 04/18/20 04/20/20 16:51 17:17 07:45 WBC RBC Hgb Hct MCV MCH MCHC RDW Plt Count MPV Sodium Potassium Chloride Carbon Dioxide Anion Gap BUN Creatinine Est GFR (CKD-EPI)AfAm Est GFR (CKD-EPI)NonAf Random Glucose Calcium Phosphorus Magnesium Total Bilirubin Direct Bilirubin GGT 118 H AST ALT Alkaline Phosphatase Total Protein Albumin COVID-19 (IVANA) Not detected Hep A IgM Ab Confirm Negative Hep Bs Antigen Negative Hep B Core IgM Ab Negative Hepatitis C Ab (EIA) 0.1 04/20/20 04/20/20 07:45 07:45 WBC 7.5 RBC 3.57 L Hgb 10.7 Hct 32.1 L MCV 89.8 MCH 29.8 MCHC 33.2 RDW 14.3 Plt Count 233 MPV 8.0 Sodium 138 Potassium 3.8 Chloride 102 Carbon Dioxide 30 Anion Gap 7 L BUN 14.4 Creatinine 0.9 Est GFR (CKD-EPI)AfAm 84.61 Est GFR (CKD-EPI)NonAf 73.00 Random Glucose 107 H Calcium 8.2 L Phosphorus 2.6 Magnesium 1.9 Total Bilirubin 0.6 Direct Bilirubin 0.2 GGT AST 74 H ALT 127 H Alkaline Phosphatase 79 Total Protein 6.9 Albumin 3.2 L COVID-19 (IVANA) Hep A IgM Ab Confirm Hep Bs Antigen Hep B Core IgM Ab Hepatitis C Ab (EIA) Current Medications Generic Name Dose Route Start Last Admin Trade Name Freq PRN Reason Stop Dose Admin Albuterol Sulfate 1 amp 04/18/20 22:00 Ventolin 0.083% Nebulizer Soln - NEB Q8H PRN SHORT OF BREATH/WHEEZING Aspirin 81 mg 04/18/20 19:15 04/20/20 09:14 Ecotrin - PO 81 mg DAILY FRANNIE Administration Baclofen 10 mg 04/18/20 22:00 04/20/20 09:14 Lioresal - PO 10 mg BID FRANNIE Administration Budesonide/Formoterol Fumarate 2 puff 04/18/20 22:00 04/20/20 09:22 Symbicort 160/4.5mcg - IH 2 puff BID FRANNIE Administration Carvedilol 25 mg 04/19/20 22:00 04/20/20 09:14 Coreg - PO 25 mg BID FRANNIE Administration Duloxetine HCl 20 mg 04/18/20 19:15 04/20/20 09:15 Cymbalta - PO 20 mg DAILY FRANNIE Administration Enoxaparin Sodium 40 mg 04/18/20 18:00 04/20/20 09:15 Lovenox - SQ 40 mg DAILY FRANNIE Administration Ergocalciferol 50,000 unit 04/19/20 16:45 04/19/20 17:53 Drisdol - PO 50,000 unit Tu@1000 FRANNIE Administration Ferrous Sulfate 325 mg 04/19/20 17:30 04/20/20 12:20 Feosol - PO 325 mg BIDLS FRANNIE Administration Levothyroxine Sodium 25 mcg 04/20/20 07:00 04/20/20 06:19 Synthroid - PO 25 mcg DAILY@0700 FRANNIE Administration Pantoprazole Sodium 40 mg 04/18/20 19:15 04/20/20 09:14 Protonix - PO 40 mg DAILY FRANNIE Administration Polyethylene Glycol 17 gm 04/20/20 14:00 Miralax (For Daily Use) - PO TID [facility] Potassium Chloride 20 meq 04/18/20 19:15 04/20/20 12:20 K-Dur - PO 20 meq DAILY FRANNIE Administration Tiotropium [place] 2 puff 04/18/20 19:15 04/20/20 09:22 Spiriva Respimat IH 2 puff DAILY [facility] Administration Torsemide 40 mg 04/18/20 19:15 04/20/20 09:15 Demadex - PO 40 mg DAILY FRANNIE Administration Tramadol HCl 25 mg 04/18/20 20:36 04/20/20 08:14 Ultram - PO 25 mg Q6H PRN Administration PAIN LEVEL 7 - 10 Home Medications Medication Instructions Recorded Aspirin [Aspirin EC] 81 mg PO DAILY 11/12/18 Ergocalciferol (Vitamin D2) 50,000 unit PO TU 11/12/18 [Vitamin D2] Ferrous Sulfate 325 mg PO BID 11/12/18 Levothyroxine [Synthroid -] 25 mcg PO DAILY 11/12/18 Pantoprazole Sodium [Protonix -] 40 mg PO DAILY 11/12/18 Carvedilol [Coreg -] 25 mg PO BID 05/13/19 Potassium Chloride [K-Dur -] 20 meq PO DAILY #30 tablet.er 05/16/19 Cetirizine HCl [Zyrtec -] 10 mg PO DAILY 12/17/19 Albuterol 0.083% Nebulizer Alia 1 neb NEB TID 04/18/20 [Ventolin 0.083% Nebulizer Soln -] Albuterol 2.5/Ipratropium 0.5 1 inh NEB TID 04/18/20 [Duoneb -] Albuterol Sulfate Inhaler - 1 - 2 inh PO PRN PRN 04/18/20 [Ventolin HFA Inhaler -] Baclofen 10 mg PO BID 04/18/20 Budesonide/Formeterol Fumarate 2 inh PO BID 04/18/20 [SYMBICORT 160/4.5mcg -] Duloxetine HCl [Drizalma Sprinkle] 20 mg PO DAILY 04/18/20 Tiotropium [place] [Spiriva 2 puff IH DAILY 04/18/20 Respimat] Torsemide 40 mg PO DAILY 04/18/20 Meclizine HCl 25 mg PO PRN 04/19/20 Polyethylene Glycol 3350 [Miralax 17 gm PO TID PRN #1 bottle 04/20/20 (For Bowel Prep) -] ASSESSMENT AND PLAN: 55 year old female with history of Chronic Diastolic CHF, HTN, HLD, Hypot hyroidism, Asthma/COPD, Depression/Anxiety, prior Alcohol excess and cocaine use, who presents with RUQ abdominal pain/nausea/non-bloody vomiting. 1. GERARDO CT A/P - diffuse steatosis, no evidence of cholecystitis or biliary tree dilatation. Acute Hepatitis viral screen negative (prior Hx alcohol and cocaine use, denies IV drug use). Statin held. LFTs improving. Autoimmune Hepatitis work-up pending GI recommends follow up as out-patient by Dr. Cortes for Fibroscan. Miralax PRN for constipation as per GI. 2. Chronic Diastolic CHF EF normal 08/2019 Continue Torsemide, BB. 3. HTN - Continue Coreg. 4. Asthma/COPD - appears stable - continue Ventolin, Spiriva, Symbicort. 5. Hypothyroiidism - Continue Synthroid. 6. RLE>LLE - US Duplex negative for DVT. 7. Depression/Anxiety - continue Duloxetine. 8. Chronic Back Pain - chronic stable L5 compression fracture. Follows with Pain Management Dr. Huynh. 9. Hypokalemia - repleted. 10. RML and stable lingular opacity on CT Chest - for out-patient Pulmonary referral. DVT Px - Lovenox SQ Dispo - medically stable for discharge with GI follow up.
[2020-04-20 15:44] VITALS: BP 106/78; PULSE 67; TEMP 98.4
--- NOTE | 2020-04-20 15:54 | DS ---
Physical Exam: SUBJECTIVE: Patient seen and examined at bedside. The patient reports that she still has 7/10 right upper quadrant abdominal pain. The patient denies nausea/vomiting, shortness of breath, or diarrhea. The patient was able to have a bowel movement, and is therefore able to be discharged. OBJECTIVE: Vital Signs Period Temp Pulse Resp BP Sys/Sigala Pulse Ox Last 24 Hr 97.5 F-98.4 F 67-75 18-18 106-141/53-92 94-95 PHYSICAL EXAM GENERAL: The patient is awake, alert, and fully oriented, in no acute distress. HEAD: Normal with no signs of trauma. EYES: Extraocular movements intact. ENT: Ears normal, nares patent, oropharynx clear without exudates, moist mucous membranes. NECK: Trachea midline, full range of motion, supple. LUNGS: Breath sounds equal, clear to auscultation bilaterally, no wheezes, no crackles, no accessory muscle use. HEART: Regular rate and rhythm, S1, S2 without murmur, rub or gallop. ABDOMEN: Soft, tender to palpation of right upper quadrant, nondistended, normoactive bowel sounds, no guarding, no rebound, no masses. EXTREMITIES: 2+ pulses, warm, well-perfused, Right LE edema with venous stasis. NEUROLOGICAL: Normal speech, gait not observed. PSYCH: Normal mood, normal affect. SKIN: Warm, dry, normal turgor, no rashes or lesions noted. LABS Laboratory Results - last 24 hr 04/18/20 04/18/20 04/20/20 16:51 17:17 07:45 WBC RBC Hgb Hct MCV MCH MCHC RDW Plt Count MPV Sodium Potassium Chloride Carbon Dioxide Anion Gap BUN Creatinine Est GFR (CKD-EPI)AfAm Est GFR (CKD-EPI)NonAf Random Glucose Calcium Phosphorus Magnesium Total Bilirubin Direct Bilirubin GGT 118 H AST ALT Alkaline Phosphatase Total Protein Albumin COVID-19 (IAVNA) Not detected Hep A IgM Ab Confirm Negative Hep Bs Antigen Negative Hep B Core IgM Ab Negative Hepatitis C Ab (EIA) 0.1 04/20/20 04/20/20 07:45 07:45 WBC 7.5 RBC 3.57 L Hgb 10.7 Hct 32.1 L MCV 89.8 MCH 29.8 MCHC 33.2 RDW 14.3 Plt Count 233 MPV 8.0 Sodium 138 Potassium 3.8 Chloride 102 Carbon Dioxide 30 Anion Gap 7 L BUN 14.4 Creatinine 0.9 Est GFR (CKD-EPI)AfAm 84.61 Est GFR (CKD-EPI)NonAf 73.00 Random Glucose 107 H Calcium 8.2 L Phosphorus 2.6 Magnesium 1.9 Total Bilirubin 0.6 Direct Bilirubin 0.2 GGT AST 74 H ALT 127 H Alkaline Phosphatase 79 Total Protein 6.9 Albumin 3.2 L COVID-19 (IVANA) Hep A IgM Ab Confirm Hep Bs Antigen Hep B Core IgM Ab Hepatitis C Ab (EIA) HOSPITAL COURSE: Date of Admission:04/18/20 55 year old female patient with past medical history that includes diastolic CHF, HTN, HLD, Hypothyroidism, Alcohol and Cocaine abuse, asthma, and chronic back pain on steroid injections, who presented to the ER with severe right upper quadrant abdominal pain for 2 weeks with nausea and yellow nonbloody vomiting. She has been drinking 4 to 5 grams of Tylenol daily for her back pain. Labs showed elevated LFTs. CT A/P showed diffuse steatosis with no evidence of cholecystitis or biliary tree dilatation. GI felt that the patient may have a diagnosis of GERARDO. Acute hepatitis viral screen was negative. On discharge, the patient was told to follow up with Dr. Cortes for a Fibroscan, and to follow up with Dr. Huynh for better pain management. The patient was also told to discontinue statin use due to her elevated LFTs and to not drink 4 to 5 grams of Tylenol anymore. Date of Discharge: 04/20/20 Minutes to complete discharge: 45 Discharge Summary Problems reviewed: Yes Reason For Visit: INFLAMMATORY LIVER DISEASE Condition: Good - Instructions Diet, Activity, Other Instructions: You were admitted to the hospital for abdominal pain and nausea. We evaluated you with blood work, lab work, and imaging including a CAT scan of your abdomen and pelvis. Based on your evaluation, we determined that you had an inflammation of your liver. We treated you with medications and your symptoms improved. Recommendation To help prevent a reoccurrence of your symptoms, please avoid using Tylenol until you follow up regarding your liver with the doctor. Diet Recommendation To help with your fatty liver, please try to follow a Weight watchers-type diet and exercise to promote weight loss. Imaging Findings We also found some abnormalities on imaging, which we would like you to follow up with the dope dry house operator Dr. Chad Cortes for further imaging. We also found on the CAT scan an abnormality in your lung, which we would like you to follow up with the gun stock maker Dr. Del Marina. Medications Please take all of your medications as prescribed. Please START taking Miralax as needed, up to three times a day to help with constipation. Please STOP taking Lipitor because of your liver inflammation and follow up with your primary care physician for further recommendation. Follow ups Please follow up with your pain medication doctor Dr. Abdi Huynh, within 1 week regarding pain management. Please follow up with the dope dry house operator Dr. Chad Cortes regarding your liver within 1 week for further imaging. Please follow up with the gun stock maker Dr. Del Marina regarding your CAT scan finding in your lung within 1 week. Please follow up with your primary care physician, Dr. Delia Urbina, within 1 week for further medication adjustment. Referrals: Delia Urbina MD [Primary Care Provider] - 1 Week Abdi Huynh MD [Staff Physician] - 1 Week () Chad Cortes MD [Staff Physician] - 1 Week Del Marina MD, MD [Staff Physician] - Disposition: HOME - Home Medications Comprehensive Discharge Medication List: Ambulatory Orders Aspirin [Aspirin EC] 81 mg PO DAILY 11/12/18 Ergocalciferol (Vitamin D2) [Vitamin D2] 50,000 unit PO TU 11/12/18 Ferrous Sulfate 325 mg PO BID 11/12/18 Levothyroxine [Synthroid -] 25 mcg PO DAILY 11/12/18 Pantoprazole Sodium [Protonix -] 40 mg PO DAILY 11/12/18 Carvedilol [Coreg -] 25 mg PO BID 05/13/19 Potassium Chloride [K-Dur -] 20 meq PO DAILY #30 tablet.er 05/16/19 Cetirizine HCl [Zyrtec -] 10 mg PO DAILY 12/17/19 Albuterol 0.083% Nebulizer Alia [Ventolin 0.083% Nebulizer Soln -] 1 neb NEB TID 04/18/20 Albuterol 2.5/Ipratropium 0.5 [Duoneb -] 1 inh NEB TID 04/18/20 Albuterol Sulfate Inhaler - [Ventolin HFA Inhaler -] 1 - 2 inh PO PRN PRN 04/18/20 Baclofen 10 mg PO BID 07/13/20 Budesonide/Formeterol Fumarate [SYMBICORT 160/4.5mcg -] 2 inh PO BID 04/18/20 Duloxetine HCl [Drizalma Sprinkle] 20 mg PO DAILY 04/18/20 Tiotropium Maple [Spiriva Respimat] 2 puff IH DAILY 04/18/20 Torsemide 40 mg PO DAILY 04/18/20 Polyethylene Glycol 3350 [Miralax (For Bowel Prep) -] 17 gm PO TID PRN #1 bottle 04/20/20 This patient is new to me today: No Emergency Visit: Yes ED Registration Date: 04/18/20 Care time: The patient presented to the Emergency Department on the above date and was hospitalized for further evaluation of their emergent condition. Critical Care patient: No - Discharge Referral Referred to [facility] No ATTENDING PHYSICIAN STATEMENT I saw and evaluated the patient. I reviewed the resident's note and discussed the case with the resident. I agree with the resident's findings and plan as documented. SUBJECTIVE: OBJECTIVE: ASSESSMENT AND PLAN:
--- NOTE | 2020-04-20 18:34 | PN ---
Physical Exam: SUBJECTIVE: Patient seen and examined at bedside. The patient reports 7/10 RUQ pain and 8/10 back pain. She still feels constipated. She denies fever/chills, diarrhea, and shortness of breath. OBJECTIVE: Vital Signs Period Temp Pulse Resp BP Sys/Sigala Pulse Ox Last 24 Hr 97.5 F-98.4 F 67-75 18-18 106-135/53-84 94-95 GENERAL: The patient is awake, alert, and fully oriented, in no acute distress. HEAD: Normal with no signs of trauma. EYES: Extraocular movements intact. No ptosis. ENT: Ears normal, nares patent, oropharynx clear without exudates, moist mucous membranes. NECK: Trachea midline, full range of motion, supple. LUNGS: Breath sounds equal, clear to auscultation bilaterally, no wheezes, no crackles, no accessory muscle use. HEART: Regular rate and rhythm, S1, S2 without murmur, rub or gallop. ABDOMEN: Soft, nontender, nondistended, normoactive bowel sounds, no guarding, no rebound, no masses. EXTREMITIES: 2+ pulses, warm, well-perfused, mild right leg edema. NEUROLOGICAL: Normal speech, gait not observed. PSYCH: Normal mood, normal affect. SKIN: Warm, dry, normal turgor, no rashes or lesions noted Laboratory Results - last 24 hr 04/18/20 04/18/20 04/20/20 16:51 17:17 07:45 WBC RBC Hgb Hct MCV MCH MCHC RDW Plt Count MPV Sodium Potassium Chloride Carbon Dioxide Anion Gap BUN Creatinine Est GFR (CKD-EPI)AfAm Est GFR (CKD-EPI)NonAf Random Glucose Calcium Phosphorus Magnesium Total Bilirubin Direct Bilirubin GGT 118 H AST ALT Alkaline Phosphatase Total Protein Albumin COVID-19 (IVANA) Not detected Hep A IgM Ab Confirm Negative Hep Bs Antigen Negative Hep B Core IgM Ab Negative Hepatitis C Ab (EIA) 0.1 04/20/20 04/20/20 07:45 07:45 WBC 7.5 RBC 3.57 L Hgb 10.7 Hct 32.1 L MCV 89.8 MCH 29.8 MCHC 33.2 RDW 14.3 Plt Count 233 MPV 8.0 Sodium 138 Potassium 3.8 Chloride 102 Carbon Dioxide 30 Anion Gap 7 L BUN 14.4 Creatinine 0.9 Est GFR (CKD-EPI)AfAm 84.61 Est GFR (CKD-EPI)NonAf 73.00 Random Glucose 107 H Calcium 8.2 L Phosphorus 2.6 Magnesium 1.9 Total Bilirubin 0.6 Direct Bilirubin 0.2 GGT AST 74 H ALT 127 H Alkaline Phosphatase 79 Total Protein 6.9 Albumin 3.2 L COVID-19 (IVANA) Hep A IgM Ab Confirm Hep Bs Antigen Hep B Core IgM Ab Hepatitis C Ab (EIA) ASSESSMENT/PLAN: 55 year old female patient with past medical history that includes diastolic CHF, HTN, HLD, Hypothyroidism, Alcohol and Cocaine abuse, asthma, and chronic back pain on steroid injections, who presented to the ED with right upper quadrant pain for 2 weeks with nausea and yellow nonbloody vomit after drinking 4-5g of Tylenol per day for her back pain. 1. Acute Hepatitis possibly secondary to GERARDO vs. statin and/or medication - GI feels that the patient may have GERARDO, as the CT scan shows liver steatosis - Statin held secondary to elevated liver enzymes. - Tylenol is < 2.0 - Hepatitis viruses negative - CT Abdomen/Pelvis shows no gallbladder pathology - monitoring LFTs - 7/10 pain right upper quadrant pain likely secondary to capsular distention of the liver secondary to the acute hepatitis - Follow up outpatient once discharged for her GERARDO - The patient is receiving Miralax and a Fleet Enema for her constipation with discharge once she has a bowel movement. 2. Chronic back pain - Back pain is 8/10 per patient today - The patient is taking Tramadol as needed 3. Diastolic CHF - ECHO from 08/2019 shows a normal EF - The patient is taking Torsemide and Carvedilol 4. HTN - The patient is taking Carvedilol 5. HLD - Statin held due to elevated liver enzymes 6. Hypothyroidism - The patient is taking levothyroxine 7. Asthma - The patient is taking albuterol, symbicort, spiriva # FEN - PO fluids. The patient is on a cholesterol/fat controlled diet. Monitoring electrolytes. DVT PPx - Lovenox Sq Dispo - Discharge after bowel movement Visit type - Emergency Visit Emergency Visit: Yes ED Registration Date: 04/18/20 Care time: The patient presented to the Emergency Department on the above date and was hospitalized for further evaluation of their emergent condition. - New Patient This patient is new to me today: No - Critical Care Critical Care patient: No - Discharge Referral Referred to [facility] No ATTENDING PHYSICIAN STATEMENT I saw and evaluated the patient. I reviewed the resident's note and discussed the case with the resident. I agree with the resident's findings and plan as documented. SUBJECTIVE: OBJECTIVE: ASSESSMENT AND PLAN:
[2020-04-21 23:09] LABS: TRANSGLUTAMINASE IGA < 2 U/mL (0-3); TRANSGLUTAMINASE IGG 5 U/mL (0-5)
[2020-04-26 06:06] LABS: ALPHA 2 MACROGLOBULINS,QN 99 mg/dL (110-276); ALT(SGPT)P5P 112 IU/L (0-40); CHOLESTEROL TOTAL 194 mg/dL (100-199); FIBROSIS SCORE 0.07 (0.00-0.21); GLUCOSE SERUM 103 mg/dL (65-99); HEIGHT 63 in (.); WEIGHT- 211 LBS (.)
== END 2020-04-20 18:10 | disposition home or self-care (01) ==
LOC: JER 12:22 → JERBED 17:48 → J5S 23:11
PROVIDERS: ADMIT Internal Medicine
DX: B17.9 Acute viral hepatitis, unspecified (principal); D50.9 Iron deficiency anemia, unspecified; J45.909 Unspecified asthma, uncomplicated; K21.9 Gastro-esophageal reflux disease without esophagitis; E78.00 Pure hypercholesterolemia, unspecified; E03.9 Hypothyroidism, unspecified; R16.0 Hepatomegaly, not elsewhere classified; E87.6 Hypokalemia; I11.0 Hypertensive heart disease with heart failure; E78.5 Hyperlipidemia, unspecified; R10.11 Right upper quadrant pain; R74.8 Abnormal levels of other serum enzymes; K56.41 Fecal impaction; M54.10 Radiculopathy, site unspecified; E66.9 Obesity, unspecified; Z68.37 Body mass index [BMI] 37.0-37.9, adult; K75.81 Nonalcoholic steatohepatitis (NASH); I50.22 Chronic systolic (congestive) heart failure; I42.0 Dilated cardiomyopathy; Z87.891 Personal history of nicotine dependence
CPT/HCPCS: 36415; 74177-TC; 80048; 80053; 80074; 80076; 80307; 81003; 82105; 82172; 82247; 82465; 82947; 82977; 83010; 83516; 83605; 83690; 83735; 83883; 84100; 84450; 84460; 84478; 85025; 85027; 85610; 85730; 86038; 93005; 93010; 93971-TC; 97116-GP; 97161-GP; 99285-25; J0475; U0003

== ENCOUNTER 2020-04-26 12:50 | Inpatient (IN) | payer OTHER ==
[2020-04-26] MEDS ORDERED: ONDANSETRON 4 MG/2 ML VIAL IVPUSH ONE ×2 (13:07→19:33)
[2020-04-26] MEDS ORDERED: morphine CARPU-JECT 4 MG/1 ML DISP.SYRIN IVPUSH ONE ×2 (13:07→19:33)
[2020-04-26] MEDS ORDERED: SODIUM CHLORIDE 500 ML IV STA (13:07)
--- NOTE | 2020-04-26 13:14 | PDOC ---
History of Present Illness - General Chief Complaint: Nausea/Vomiting Stated Complaint: VOMITING/STOMACH DISCOMFORT Time Seen by Provider: 04/26/20 12:59 History Source: Patient, Old Records Exam Limitations: No Limitations - History of Present Illness Travel History: No Initial Comments: 04/26/20 13:18 HISTORY OF PRESENT ILLNESS: 55-year-old female with past medical history of CHF, asthma, remote alcohol and cocaine use, hypothyroidism presents emergency department for evaluation of right-sided abdominal pain worsening over the past 2 days. Patient reports she was seen and evaluated on 04/18 was admitted to the hospital for right sided upper abdominal pain. She reports the pain today is a sharp pain in her right lower quadrant which started yesterday. Patient is unable to tolerate solid foods or liquids including water over the past 24 ana rs. Patient reports she has been experiencing constipation as of late but is been taking MiraLAX and her last bowel movement was this morning which was a formed brown stool without blood noted. Patient denies any dysuria, hematuria, vaginal discharge or vaginal bleeding. No recent travel or sick contacts. PAST MEDICAL HISTORY: See HPI SURGICAL HISTORY: Denies ALLERGIES: Gabapentin, Robaxin REVIEW OF SYSTEMS General/Constitutional: Denies fever or chills. Denies weakness, weight change. HEENT: Denies change in vision. Denies ear pain or discharge. Denies sore throat. Cardiovascular: Denies chest pain or shortness of breath. Respiratory: Denies cough, wheezing, or hemoptysis. Gastrointestinal: See HPI Genitourinary: Denies dysuria, frequency, or change in urination. Musculoskeletal: Denies joint or muscle swelling or pain. Denies neck or back pain. Skin and breasts: Denies rash or easy bruising. Neurologic: Denies headache, vertigo, loss of consciousness, or loss of sensation. Psychiatric: Denies depression or anxiety. Endocrine: Denies increased thirst. Denies abnormal weight change. Hematologic/Lymphatic: Denies anemia, easy bleeding, or history of blood clots. Allergic/Immunologic: Denies hives or skin allergy. Denies latex allergy. PHYSICAL EXAM General Appearance: Well-appearing, appropriately dressed. No apparent distress, no intoxication. Respiratory/Chest: Lungs CTAB. No shortness of breath, chest tenderness, respiratory distress, accessory muscle use. No crackles, rales, rhonchi, stridor, wheezing, dullness Cardiovascular: RRR. S1, S2. No JVD, murmur, bradycardia, tachycardia. Vascular Pulses: Dorsalis-Pedis (R): 2+, Dorsalis-Pedis (L): 2+ Gastrointestinal/Abdominal: Normal bowel sounds. Abdomen soft, non-distended. Right lower quadrant tenderness with guarding and without rebound tenderness. Remainder of abdomen is benign. Negative Kulkarni sign. Negative psoas, obturator or Rovsing signs. No organomegaly, pulsatile mass, hernia, hepatomegaly, splenomegaly. Lymphatic: No adenopathy, tenderness. Musculoskeletal/Extremities: Normal inspection. FROM of all extremities, normal capillary refill. Pelvis Stable. No CVA tenderness. No tenderness to extremities, pedal edema, swelling, erythema or deformity. Integumentary: Appropriate color, dry, warm. No cyanosis, erythema, jaundice or rash Neurologic: pitch flaker II-XII intact. Fully oriented, alert. Appropriate mood/affect. Motor strength 5/5. No appreciable EOM palsy, facial droop or sensory deficit. Past History - Medical History Allergies/Adverse Reactions: Allergies Allergy/AdvReac Type Severity Reaction Status Date / Time gabapentin AdvReac Intermediate Swelling Verified 04/26/20 12:57 methocarbamol [From Robaxin] AdvReac Intermediate Swelling Verified 04/26/20 12:57 Home Medications: Ambulatory Orders Aspirin [Aspirin EC] 81 mg PO DAILY 11/12/18 Ergocalciferol (Vitamin D2) [Vitamin D2] 50,000 unit PO TU 11/12/18 Ferrous Sulfate 325 mg PO BID 11/12/18 Levothyroxine [Synthroid -] 25 mcg PO DAILY 11/12/18 Pantoprazole Sodium [Protonix -] 40 mg PO DAILY 11/12/18 Carvedilol [Coreg -] 25 mg PO BID 05/13/19 Potassium Chloride [K-Dur -] 20 meq PO DAILY #30 tablet.er 05/16/19 Cetirizine HCl [Zyrtec -] 10 mg PO DAILY 12/17/19 Albuterol 0.083% Nebulizer Alia [Ventolin 0.083% Nebulizer Soln -] 1 neb NEB TID 04/18/20 Albuterol 2.5/Ipratropium 0.5 [Duoneb -] 1 inh NEB TID 04/18/20 Albuterol Sulfate Inhaler - [Ventolin HFA Inhaler -] 1 - 2 inh PO PRN PRN 04/18/20 Baclofen 10 mg PO BID 04/18/20 Budesonide/Formeterol Fumarate [SYMBICORT 160/4.5mcg -] 2 inh PO BID 04/18/20 Duloxetine HCl [Drizalma Sprinkle] 20 mg PO DAILY 04/18/20 Tiotropium Willard [Spiriva Respimat] 2 puff IH DAILY 04/18/20 Torsemide 40 mg PO DAILY 04/18/20 Polyethylene Glycol 3350 [Miralax (For Bowel Prep) -] 17 gm PO TID PRN #1 bottle 04/20/20 Anemia: Yes (iron deficiency) Asthma: Yes Cancer: No Cardiac Disorders: Yes (HFrEF, Iriopathic, dilated cardiomyopathy, negative cath in [facility]) CVA: No COPD: No CHF: Yes Dementia: No Diabetes: No GI Disorders: Yes (colitis, GERD) Disorders: No HTN: Yes Hypercholesterolemia: Yes Liver Disease: No Seizures: No Thyroid Disease: Yes (Hypothyroidism) - Surgical History Abdominal Surgery: Yes (Hysterectomy) Appendectomy: No Cardiac Surgery: No Cholecystectomy: No Lung Surgery: No Neurologic Surgery: No Orthopedic Surgery: Yes (Shaved rib on left side) - Immunization History Immunization Up to Date: Yes - Psycho-Social/Smoking History Smoking Status: No Smoking History: Never smoked Have you smoked in the past 12 months: No Number of Cigarettes Smoked Daily: 2 If you are a former smoker, when did you quit?: 13 YEARS AGO Information on smoking cessation initiated: No - Substance Abuse Hx (Audit-C & DAST Scrn) How often the patient has a drink containing alcohol: Never Score: In Men: 4 or > Positive; In Women: 3 or > Positive: 0 Screen Result (Pos requires Nsg. Audit-10AR): Negative In the last yr the pt used illegal drug/Rx for NonMed reason: No Score: Yes response is considered Positive: 0 Screen Result (Positive result requires Nsg. DAST-10): Negative *Physical Exam - Vital Signs Last Vital Signs Temp Pulse Resp BP Pulse Ox 98.4 F 125 H 19 137/86 97 04/26/20 12:52 04/26/20 12:52 04/26/20 12:52 04/26/20 12:52 04/26/20 12:52 ED Treatment Course - LABORATORY CBC & Chemistry Diagram: 04/26/20 14:30 04/26/20 14:30 - RADIOLOGY Radiology Studies Ordered: Category Date Time Status ABDOMEN & PELVIS CT WITH CONTR [CT] Stat CT Scan 04/26/20 13:12 Ordered Medical Decision Making - Medical Decision Making 04/26/20 13:21 A/P: 55-year-old woman with 2 days of right lower quadrant pain and inability to tole rate solids or liquids including water Heart rate 125 on arrival. Exquisitely tender in the right lower quadrant with light palpation. No rebound tenderness noted. Guarding is present in the right lower quadrant Negative psoas, Rovsing's and obturator signs. Patient with negative hepatitis testing on last visit Patient has GI follow-up in [address] Cortes. Differential diagnosis includes but is not limited to-appendicitis, Kelly, obstruction, perforation, occult infection. Less likely hepatitis given negative testing 1 week ago. Negative cover testing at that time makes coronavirus less likely. While patient is tachycardic she does have a history of heart failure she has clear lungs and no pedal edema will give 500 cc of fluid IV bolus and reevaluate prior to additional fluids. Labs including lipase Urinalysis, urine culture CT of the abdomen and pelvis with IV contrast EKG N.p.o. Morphine 4 mg IV push Zofran 4 mg IV push Reassess 04/26/20 17:08 Laboratory Tests 04/26/20 04/26/20 14:30 14:30 WBC 10.3 H RBC 4.46 Hgb 13.5 Hct 40.5 D MCV 90.8 MCH 30.2 MCHC 33.2 RDW 14.5 Plt Count 303 D MPV 8.3 Absolute Neuts (auto) 6.9 Neutrophils % 67.0 Lymphocytes % 23.2 Monocytes % 6.8 Eosinophils % 2.5 Basophils % 0.5 Nucleated RBC % 0 Sodium 138 Potassium 3.7 Chloride 101 Carbon Dioxide 23 Anion Gap 14 BUN 23.6 H Creatinine 1.4 H Est GFR (CKD-EPI)AfAm 49.59 Est GFR (CKD-EPI)NonAf 42.79 Random Glucose 113 H Calcium 9.8 Total Bilirubin 0.7 AST 71 H ALT 109 H Alkaline Phosphatase 101 Creatine Kinase Pending Troponin I Pending Total Protein 8.9 H Albumin 4.0 Lipase 207 Patient with creatinine of 1.4 and a GFR of 42.79. Patient has received hydration since laboratory testing has been drawn. It was explained to the patient the need for IV contrast in her CAT scan to rule out appendicitis and the risks of receiving IV contrast are outweighed by the benefits of receiving contrast for the study. Patient is in agreement with the plan and is okay receiving CAT scan with IV contrast with mildly elevated kidney function. 04/26/20 20:19 CT scan is read by Dr. Harvey: No definite CT findings of acute pathology are identified. The appendix appears unremarkable. Prominent diffuse hepatic steatosis is again noted on a prior CT exam of 04/18/2020. Stable minimal spinal splenomegaly. Stable chronic minimal mid L5 vertebral body compression fracture. Chest x-ray as read by me: Angle sharp. Cardiac silhouette is within normal limits. Lung chandra are clear without any evidence of infiltrate or consolidation. No significant change from study performed 08/06/2019. EKG sinus rhythm with rate of 104. PACs present. New T wave inversions in leads I, V5 and V6. I will contact the hospitalist service for admission for GERARD as well as EKG changes. 04/26/20 20:46 Case has been discussed with Dr. Ambriz of the hospitalist service who accepts patient for observation under Dr. Edwards. Discharge - Discharge Information Problems reviewed: Yes Clinical Impression/Diagnosis: GERARD (acute kidney injury) Condition: Fair - Admission Yes - Follow up/Referral Referrals: Delia Urbina MD [Primary Care Provider] - - Patient Discharge Instructions - Post Discharge Activity
[2020-04-26] MEDS ORDERED: morphine SULFATE 4 MG/ML VIAL ONE ×2 (14:41→20:50)
[2020-04-26 15:42] LABS: BASO % 0.5 % (0-2.0); EOS % 2.5 % (0-4.5); HEMATOCRIT 40.5 % (32.4-45.2); HEMOGLOBIN 13.5 GM/dL (10.7-15.3); LYMPH % 23.2 % (8-40); MCH 30.2 pg (25.7-33.7); MCHC 33.2 g/dl (32.0-36.0); MEAN CELL VOLUME 90.8 fl (80-96); MEAN PLT VOLUME 8.3 fl (7.5-11.1); MONO % 6.8 % (3.8-10.2); PLATELET COUNT 303 K/MM3 (134-434); RBC 4.46 M/mm3 (3.60-5.2); RDW 14.5 % (11.6-15.6); WHITE BLOOD COUNT 10.3 K/mm3 (4.0-10.0)
--- NOTE | 2020-04-26 16:08 | EKG ---
Test Reason : Blood Pressure : / mmHG Vent. Rate : 104 BPM Atrial Rate : 104 BPM P-R Int : 144 ms QRS Dur : 088 ms QT Int : 368 ms P-R-T Axes : 019 015 104 degrees QTc Int : 483 ms SINUS TACHYCARDIA WITH PREMATURE ATRIAL COMPLEXES NONSPECIFIC T WAVE ABNORMALITY ABNORMAL ECG Confirmed by MD HENOK, TAYLOR ([id number]) on 04/26/2020 4:08:06 PM Referred By: Confirmed By:TAYLOR WHITING MD
[2020-04-26 16:14] LABS: ALK PHOS 101 U/L (45-117); ANION GAP 14 MMOL/L (8-16); BILIRUBIN,TOTAL 0.7 mg/dL (0.2-1); BLOOD UREA NITROGEN 23.6 mg/dL (7-18); CALCIUM 9.8 mg/dL (8.5-10.1); CHLORIDE 101 mmol/L (98-107); CO2 23 mmol/L (21-32); CREATININE 1.4 mg/dL (0.55-1.3); GLUCOSE,RANDOM 113 mg/dL (74-106); LIPASE 207 U/L (73-393); POTASSIUM 3.7 mmol/L (3.5-5.1); SGOT/AST 71 U/L (15-37); SGPT/ALT 109 U/L (13-61); SODIUM 138 mmol/L (136-145); TOT PROT 8.9 g/dl (6.4-8.2)
--- NOTE | 2020-04-26 20:30 | PN ---
Teaching Attending Note Name of Resident: Isauro Rodney ATTENDING PHYSICIAN STATEMENT I saw and evaluated the patient. I reviewed the resident's note and discussed the case with the resident. I agree with the resident's findings and plan as documented. SUBJECTIVE: Patient is a 55-year-old woman with a PMH of HFpEF, Asthma, HLD, HTN, Remote alc ohol and cocaine use and Hypothyroidism who presents to the ER for evaluation of right-sided abdominal pain worsening over the past 2 days. Patient reports she was seen and evaluated on 04/18/2020 and was admitted to the hospital for right sided upper abdominal pain. She reports the pain today is a sharp pain in her right lower quadrant which started yesterday. Patient is unable to tolerate solid foods or liquids including water over the past 24 hours. Patient reports she has been experiencing constipation as of late but has been taking MiraLAX and her last bowel movement was this morning which was a formed brown stool without blood noted. Patient denies any dysuria, hematuria, abnormal vaginal discharge or vaginal bleeding. Patient denies chest pain, shortness of breath, dizziness, fever, chills, nausea, vomiting, melena, hematochezia or hematuria. Ex-smoker. Denies alcohol, tobacco or illicit drug use. No sick contacts or recent travels. Family history is unremarkable. OBJECTIVE: Alert Vital Signs Period Temp Pulse Resp BP Sys/Sigala Pulse Ox Last 24 Hr 98.4 F-98.6 F 85-125 19 132-137/86-95 95-97 HEENT: No Jaundice, eye redness or discharge, PERRLA, EOMI. Normocephalic, atraumatic. External ears are normal and hearing is grossly intact. No nasal discharge. Neck: Supple, nontender. No palpable adenopathy or thyromegaly. No JVD Chest: Good effort. Clear to auscultation and percussion. Heart: Regular. No S3, rub or murmur Abdomen: Not distended, soft, upper abdominal tenderness and no HSM. No rebound or guarding. Normal bowel sounds. Ext: Peripheral pulses intact. No leg edema. Skin: Warm and dry. No petechiae, rash or ecchymosis. Neuro: Alert. Oriented x3. CN 2-12 grossly intact. Sensation grossly intact in all four extremities and DTR are symmetric. Psych: Appropriate mood and affect. Good insight. Home Medications Medication Instructions Recorded Aspirin [Aspirin EC] 81 mg PO DAILY 11/12/18 Ergocalciferol (Vitamin D2) 50,000 unit PO TU 11/12/18 [Vitamin D2] Ferrous Sulfate 325 mg PO BID 11/12/18 Levothyroxine [Synthroid -] 25 mcg PO DAILY 11/12/18 Pantoprazole Sodium [Protonix -] 40 mg PO DAILY 11/12/18 Carvedilol [Coreg -] 25 mg PO BID 05/13/19 Potassium Chloride [K-Dur -] 20 meq PO DAILY #30 tablet.er 05/16/19 Cetirizine HCl [Zyrtec -] 10 mg PO DAILY 12/17/19 Albuterol 0.083% Nebulizer Alia 1 neb NEB TID 04/18/20 [Ventolin 0.083% Nebulizer Soln -] Albuterol 2.5/Ipratropium 0.5 1 inh NEB TID 04/18/20 [Duoneb -] Albuterol Sulfate Inhaler - 1 - 2 inh PO PRN PRN 04/18/20 [Ventolin HFA Inhaler -] Baclofen 10 mg PO BID 04/18/20 Budesonide/Formeterol Fumarate 2 inh PO BID 04/18/20 [SYMBICORT 160/4.5mcg -] Duloxetine HCl [Drizalma Sprinkle] 20 mg PO DAILY 04/18/[address] Tiotropium [place] [Spiriva 2 puff IH DAILY 04/18/20 Respimat] Torsemide 40 mg PO DAILY 04/18/20 Polyethylene Glycol 3350 [Miralax 17 gm PO TID PRN #1 bottle 04/20/20 (For Bowel Prep) -] Abnormal Lab Results 04/26/20 04/26/20 14:30 14:30 WBC 10.3 H BUN 23.6 H Creatinine 1.4 H Random Glucose 113 H AST 71 H ALT 109 H Total Protein 8.9 H ASSESSMENT AND PLAN: 1. Abdominal pain - Cause unclear. CT abdomen/pelvis with IV contrast didnot reveal any acute abnormality but showed L5 vertebral compression fracture; L5-S1 degenerative disc changes and right middle lobe focal scarring or chronic infiltrates. "Mild prostate enlargement" also noted on CT abdomen/pelvis. It is possible that her abdominal pain may be referred pain from her vertebral fracture/degenerative disease. Consult Neurology. No acute abnormality on CXR. Consult Pulmonary. Will treat constipation with saline enema and Miralax bid; consult GI for IBD workup, EGD and colonoscopy. Continue IV NS, get urine toxicology and use Morphine for pain control. Get CRP, fecal calprotectin and lactoferrin. Viral testing for COVID-19 ordered and patient placed on airborne, droplet and contact isolation. Consult Pian management - needs to be weaned off Baclofen. EKG shows sinus tachycardia at 104/minute and QTc 483 with new T wave inversion in I, V5, V6, but no significant ST changes. Initial troponin is negative. Will repeat troponin and EKG. Will continue comprehensive care for all of patients comorbid conditions including Synthroid for hypothyroidism and Duoneb PRN for Asthma. 2. GERARD May be due to volume loss or recent contrast dye study. Will get kidney sonogram, hydrate gently with IV NS, monitor urine output and consult Nephrology. Avoid nephrotoxic agents such as NSAIDS, aminoglycosides, contrast dyes and certain Alternative medicine products. 3. Obesity Counseled on the risks associated with obesity. Will provide patient all the necessary assistance, counseling and positive reinforcement to facilitate weight loss. Consult wire bound box machine operator. 4. Hypertension Will restart suitable outpatient antihypertensive drugs when clinically appropriate. Subsequently, will revise regimen to ensure [id number] excellent BP control. Patient counseled on the injurious effects of uncontrolled hypertension. Nonpharmacologic measures to control hypertension like weight loss, salt restriction and exercise stressed. Importance of adherence to treatment regimen and attainment of normotension emphasized. 5. DVT prophylaxis - Heparin 5000u sq tid. 6. Advance directives - Full code
[2020-04-27] MEDS: SODIUM CHLORIDE 1,000 ML IV SCH ×2 (00:47→13:57)
--- NOTE | 2020-04-27 02:12 | HP ---
CHIEF COMPLAINT: R sided abdominal pain x 2 days PCP: Dr. Urbina HISTORY OF PRESENT ILLNESS: Pt is a 55 year old female with PMHx of asthma, HLD, stable L5 vertebral body compression fracture, hypothyroid, HFpEF presenting to the ED with R sided abdominal pain that has been worsening for the last 2 days. Pt was seen and admitted on 04/18 for abdominal pain in the same location, on that admission abdomen/pelvis CT was found to have hepatic steatosis. Pt states the abdominal pain is located in the R middle and lower quadrant which is the same location as her last admission. Pt also states she has back pain in the mid lumbar region. Pt states she has been unable to tolerate solids and liquids for the past 24 hours due to nausea and episodes of nonbilious, nonbloody vomiting since yesterday. Pt was started on Miralax on discharge on last visit due to constipation, and has since been having 4 formed stools per day. This AM, she states she had a dark formed bowel movement, which was mixed with some diarrhea. Denies Fever, CP, SOB, NAVAS, cough, urinary changes. Admits to R middle and lower quadrant abdominal pain, nausea, vomiting, back pain. EKG findings with T wave inversions in I, V5 and V6 without any ST changes. PAST MEDICAL HISTORY: as stated above PAST SURGICAL HISTORY: Hysterectomy Social History: Smoking: Quit 10 years ago Alcohol: Was modest drinker, quit in 2017 Drugs: Last cocaine use 1 year ago Allergies gabapentin Adverse Reaction (Intermediate, Verified 04/26/20 12:57) Swelling methocarbamol [From Robaxin] Adverse Reaction (Intermediate, Verified 04/26/20 12:57) Swelling HOME MEDICATIONS: Home Medications Medication Instructions Recorded Aspirin [Aspirin EC] 81 mg PO DAILY 11/12/18 Ergocalciferol (Vitamin D2) 50,000 unit PO TU 11/12/18 [Vitamin D2] Ferrous Sulfate 325 mg PO BID 11/12/18 Levothyroxine [Synthroid -] 25 mcg PO DAILY 11/12/18 Pantoprazole Sodium [Protonix -] 40 mg PO DAILY 11/12/18 Carvedilol [Coreg -] 25 mg PO BID 05/13/19 Potassium Chloride [K-Dur -] 20 meq PO DAILY #30 tablet.er 05/16/19 Cetirizine HCl [Zyrtec -] 10 mg PO DAILY 12/17/19 Albuterol 0.083% Nebulizer Alia 1 neb NEB TID 04/18/20 [Ventolin 0.083% Nebulizer Soln -] Albuterol 2.5/Ipratropium 0.5 1 inh NEB TID 04/18/20 [Duoneb -] Albuterol Sulfate Inhaler - 1 - 2 inh PO PRN PRN 04/18/20 [Ventolin HFA Inhaler -] Baclofen 10 mg PO BID 04/18/20 Budesonide/Formeterol Fumarate 2 inh PO BID 04/18/20 [SYMBICORT 160/4.5mcg -] Duloxetine HCl [Drizalma Sprinkle] 20 mg PO DAILY 04/18/20 Tiotropium [place] [Spiriva 2 puff IH DAILY 04/18/20 Respimat] Torsemide 40 mg PO DAILY 04/18/20 Polyethylene Glycol 3350 [Miralax 17 gm PO TID PRN #1 bottle 04/20/20 (For Bowel Prep) -] REVIEW OF SYSTEMS CONSTITUTIONAL: Admits loss of appetite, weakness Absent: fever, chills, diaphoresis, malaise, weight change HEENT: Absent: rhinorrhea, nasal congestion, throat pain, throat swelling, difficulty swallowing, mouth swelling, ear pain, eye pain, visual changes CARDIOVASCULAR: Absent: chest pain, syncope, palpitations, irregular heart rate, lightheaded ness, peripheral edema RESPIRATORY: Absent: cough, shortness of breath, dyspnea with exertion, orthopnea, wheezing, stridor, hemoptysis GASTROINTESTINAL: Admits R middle and lower quadrant abdominal pain, nausea, vomiting Absent: abdominal distension, diarrhea, constipation, melena, hematochezia GENITOURINARY: Absent: dysuria, frequency, urgency, hesitancy, hematuria, flank pain, genital pain MUSCULOSKELETAL: Absent: myalgia, arthralgia, joint swelling, back pain, neck pain SKIN: Absent: rash, itching, pallor HEMATOLOGIC/IMMUNOLOGIC: Absent: easy bleeding, easy bruising, lymphadenopathy, frequent infections ENDOCRINE: Absent: unexplained weight gain, unexplained weight loss, heat intolerance, cold intolerance NEUROLOGIC: Absent: headache, focal weakness or paresthesias, dizziness, unsteady gait, seizure, mental status changes, bladder or bowel incontinence PSYCHIATRIC: Absent: anxiety, depression, suicidal or homicidal ideation, hallucinations. PHYSICAL EXAMINATION Vital Signs - 24 hr 04/26/20 04/26/20 04/26/20 12:52 18:39 19:56 Temperature 98.4 F 98.6 F Pulse Rate 125 H Pulse Rate [ Left Radial] Pulse Rate [ 85 Right Radial] Respiratory 19 Rate Blood Pressure 137/86 Blood Pressure 132/95 [Left Arm] O2 Sat by Pulse 97 96 95 Oximetry (%) 04/27/20 00:46 Temperature 98.5 F Pulse Rate Pulse Rate [ 83 Left Radial] Pulse Rate [ Right Radial] Respiratory 20 Rate Blood Pressure Blood Pressure 142/97 [Left Arm] O2 Sat by Pulse 95 Oximetry (%) GENERAL: Awake, alert, and fully oriented, in moderate distress. HEAD: Normal with no signs of trauma. EYES: Pupils equal, round and reactive to light, extraocular movements intact, sclera anicteric, conjunctiva clear. No lid lag. EARS, NOSE, THROAT: Ears normal, nares patent, oropharynx clear without exudates. Moist mucous membranes. NECK: Normal range of motion, supple without lymphadenopathy, JVD, or masses. LUNGS: Breath sounds equal, clear to auscultation bilaterally. No wheezes, and no crackles. No accessory muscle use. HEART: Regular rate and rhythm, normal S1 and S2 without murmur, rub or gallop. ABDOMEN: Soft, R middle and lower quadrant abdominal tenderness. Negative [place], Psoas signs Abdomen not distended, normoactive bowel sounds, no guarding, no rebound, no masses. No hepatomegaly or splenomegaly. MUSCULOSKELETAL: Normal range of motion at all joints. No bony deformities or te nderness. No CVA tenderness. UPPER EXTREMITIES: 2+ pulses, warm, well-perfused. No cyanosis. No clubbing. No peripheral edema. LOWER EXTREMITIES: 2+ pulses, warm, well-perfused. No calf tenderness. No peripheral edema. NEUROLOGICAL: Cranial nerves II-XII intact. Normal speech. Normal gait. PSYCHIATRIC: Cooperative. Good eye contact. Appropriate mood and affect. SKIN: Warm, dry, normal turgor, no rashes or lesions noted, normal capillary refill. Laboratory Results - last 24 hr 04/26/20 04/26/20 04/26/20 14:30 14:30 21:00 WBC 10.3 H RBC 4.46 Hgb 13.5 Hct 40.5 D MCV 90.8 MCH 30.2 MCHC 33.2 RDW 14.5 Plt Count 303 D MPV 8.3 Absolute Neuts (auto) 6.9 Neutrophils % 67.0 Lymphocytes % 23.2 Monocytes % 6.8 Eosinophils % 2.5 Basophils % 0.5 Nucleated RBC % 0 Sodium 138 Potassium 3.7 Chloride 101 Carbon Dioxide 23 Anion Gap 14 BUN 23.6 H Creatinine 1.4 H Est GFR (CKD-EPI)AfAm 49.59 Est GFR (CKD-EPI)NonAf 42.79 Random Glucose 113 H Calcium 9.8 Total Bilirubin 0.7 AST 71 H ALT 109 H Alkaline Phosphatase 101 Creatine Kinase 177 Creatine Kinase Index No Result Required. CK-MB (CK-2) < 1.0 Troponin I < 0.02 < 0.02 Total Protein 8.9 H Albumin 4.0 Lipase 207 ASSESSMENT/PLAN: Pt is a 55 year old female with PMHx of PMHx of stable L5 vertebral body compression fracture, hypothyroid, HFpEF presenting to the ED with R sided abdominal pain that has been worsening for the last 2 days admitted for GERARD. Previous admission last week most recent Cr 0.9, presenting today with 1.4. Elevated AST/ALT similar to previous admission. #Abdominal Pain -Secondary to GERARDO vs IBS vs. constipation -FOBT ordered -Morphine 2mgIV PRN Q4H for abdominal pain; avoid Tylenol due to transaminitis and NSAIDs due to GERARD -Consulted GI -Hold tylenol, statin, baclofen -Rule out IBS due to change in frequency and form of stool - fecal lactoferrin, calprotectin and CRP -TSH ordered; rule out hypothyroid state as contributor to constipation/abdominal pain #GERARD -Cr 1.4, baseline 0.9 -Secondary to contrast induced vs volume loss (diarrhea, vomiting) -UA pending -Urine tox due to history of cocaine use -Renal ultrasound -Hydrate NS at 83cc/hr -Avoid nephrotoxic agents (ex. NSAIDs) #Transaminitis -Secondary to GERARDO vs. Tylenol use -Hold statin, avoid tylenol use -Monitor LFT #Hx of HTN -Continue home meds #Hx of HFpEF -Continue home meds #Hx of hypothyroidism -Continue home synthroid 25mcg -TSH ordered; rule out hypothyroid state as contributor to constipation/abdominal pain Prophylaxis: Heparin 5000u SQ TID FEN: -Sodium controlled diet -NS at 83cc/hour Dispo: Admitted for GERARD and R sided abdominal pain. Consulted GI (Dr. Regan) for follow up. UA, Utox and renal ultrasound pending. Repeat EKG and trops due to new onset T wave inversions. Family Medical History Family History: Unremarkable Problem List - Problem (1) Anxiety Code(s): F41.9 - ANXIETY DISORDER, UNSPECIFIED (2) Asthma Code(s): J45.909 - UNSPECIFIED ASTHMA, UNCOMPLICATED Qualifiers: Asthma severity: moderate persistent Asthma complication type: with acute exacerbation (3) CHF (congestive heart failure) Code(s): I50.9 - HEART FAILURE, UNSPECIFIED Qualifiers: Heart failure type: systolic Heart failure chronicity: chronic Qualified Code(s): I50.22 - Chronic systolic (congestive) heart failure (4) Compression fracture of L5 vertebra Code(s): S32.050A - WEDGE COMPRESSION FRACTURE OF FIFTH LUMBAR VERTEBRA, INIT (5) Degenerative disc disease at L5-S1 level Code(s): M51.36 - OTHER INTERVERTEBRAL DISC DEGENERATION, LUMBAR REGION (6) Dilated cardiomyopathy Code(s): I42.0 - DILATED CARDIOMYOPATHY (7) Fatty liver Code(s): K76.0 - FATTY (CHANGE OF) LIVER, NOT ELSEWHERE CLASSIFIED (8) Hypertension Code(s): I10 - ESSENTIAL (PRIMARY) HYPERTENSION Qualifiers: Hypertension type: essential hypertension Qualified Code(s): I10 - Essential (primary) hypertension (9) Hypothyroidism Code(s): E03.9 - HYPOTHYROIDISM, UNSPECIFIED (10) Obesity (BMI 30-39.9) Code(s): E66.9 - OBESITY, UNSPECIFIED (11) Abdominal pain Code(s): R10.9 - UNSPECIFIED ABDOMINAL PAIN (12) Hepatitis Code(s): K75.9 - INFLAMMATORY LIVER DISEASE, UNSPECIFIED (13) Hypokalemia Code(s): E87.6 - HYPOKALEMIA Visit type - Emergency Visit Emergency Visit: Yes ED Registration Date: 04/26/20 Care time: The patient presented to the Emergency Department on the above date and was hospitalized for further evaluation of their emergent condition. - New Patient This patient is new to me today: Yes Date on this admission: 04/26/20 - Critical Care Critical Care patient: No ATTENDING PHYSICIAN STATEMENT I saw and evaluated the patient. I reviewed the resident's note and discussed the case with the resident. I agree with the resident's findings and plan as documented. SUBJECTIVE: OBJECTIVE: ASSESSMENT AND PLAN:
[2020-04-27] MEDS: MORPHINE SULFATE 2 MG/ML VIAL IVPUSH PRN ×2 (02:45→20:50)
[2020-04-27 03:19] VITALS: BMI 35.8
[2020-04-27] MEDS ORDERED: ALBUTEROL SO4 2.5/IPRATROPIUM 0.5 INH SOL 3 ML VIAL.NEB. NEB PRN (04:08)
[2020-04-27] MEDS: LEVOTHYROXINE NA 25 MCG TABLET (FP) PO SCH (06:02)
[2020-04-27] MEDS: ALBUTEROL SO4 HFA INHALER IH PRN (06:14)
[2020-04-27 08:51] LABS: HEMATOCRIT 33.3 % (32.4-45.2); HEMOGLOBIN 11.2 GM/dL (10.7-15.3); MCH 30.5 pg (25.7-33.7); MCHC 33.5 g/dl (32.0-36.0); MEAN CELL VOLUME 90.9 fl (80-96); MEAN PLT VOLUME 7.9 fl (7.5-11.1); PLATELET COUNT 249 K/MM3 (134-434); RBC 3.67 M/mm3 (3.60-5.2); RDW 14.8 % (11.6-15.6)
[2020-04-27 09:24] LABS: ALBUMIN 3.3 g/dl (3.4-5.0); ALK PHOS 80 U/L (45-117); ANION GAP 9 MMOL/L (8-16); BILIRUBIN,TOTAL 0.6 mg/dL (0.2-1); BLOOD UREA NITROGEN 19.7 mg/dL (7-18); CHLORIDE 101 mmol/L (98-107); CO2 27 mmol/L (21-32); CREATININE 1.1 mg/dL (0.55-1.3); GLUCOSE,RANDOM 138 mg/dL (74-106); MAGNESIUM 2.1 mg/dL (1.8-2.4); PHOSPHOROUS 4.6 mg/dL (2.5-4.9); POTASSIUM 3.2 mmol/L (3.5-5.1); SGOT/AST 49 U/L (15-37); SGPT/ALT 88 U/L (13-61); SODIUM 136 mmol/L (136-145); TOT PROT 7.1 g/dl (6.4-8.2)
--- NOTE | 2020-04-27 09:34 | CON.GI ---
Consult Consult Specialty:: GI - Dr. Trinidad Kidd Reason for Consultation:: ABD pain - History of Present Illness Chief Complaint: ABD pain, N/V, postprandial bloating and inability to eat. History of Present Illness: 55F w/ PMHx as noted below presents to [facility] ED w/ c/o abd pain with associated n/v and inability to eat. Patient well know to our service as she was recently discharged from our hospital where she presented with same problem. Continues to c/o RUQ pain (intermittent). She was seen/evaluated by Dr. Ojeda on 04/19/20. Per Dr. Ojeda's note, patient's change in liver fat content by imaging while she has been abstaining from alcohol suggests that Christian has GERARDO. Her 08/25 echo does not support congestive hepatopathy as her RV and LV function is good. She was instructed to follow-up w/ Dr. Cortes to further eval her fatty liver with fibroscan. Patient states she has appointment at end of the month. H/o fecal retention/impaction/constipation associated with Baclofen use. She tested positive for Cocaine and opioids. She is passing flatus. Last BM was yesterday (solid). Denies CP, palpitations, SOB or NAVAS. Denies hematuria, dysuria, melena or hematochazia. Last EGD and a colonoscopy in 2018 at [facility] --> Benign polyps were removed but she was told that the studies were otherwise unremarkable. She drank alcohol modestly until 2017. None since then. - History Source History Provided By: Patient, Medical Record Limitations to Obtaining History: No Limitations - Past Medical History Cardio/Vascular: Yes: CHF (diastolic), HTN Pulmonary: Yes: Asthma (seasonal) Gastrointestinal: Yes: Constipation, Other (Colitis) Hepatobiliary: Yes: Other (fatty liver) Renal/: Yes: Renal Inusuff ...LMP: 01/09/19 ...LMP Comment: hystrectomy ...: No Musculoskeletal: Yes: Chronic low back pain [facility]. [facility] - Past Surgical History Past Surgical History: Yes: Colonoscopy (Colon polyps removed 2018 at [facility]), Hysterectomy (Robotic assisted hysterectomy, bilateral salpingectomy, ovarian cystectomy 01/28/2019 ([facility])), Upper Endoscopy (EGD unremarkable 2019 at [facility]) - Alcohol/Substance Use Hx Alcohol Use: Yes (quit 2017) History of Substance Use: reports: Cocaine (snorted in the past) - Smoking History Smoking history: Former smoker Have you smoked in the past 12 months: No Aproximately how many cigarettes per day: 2 If you are a former smoker, when did you quit?: 13 YEARS AGO - Social History Usual Living Arrangement: Alone ADL: Independent 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 History of Recent Travel: No <Pineda Dash - Last Filed: 04/27/20 10:54> Home Medications <Pineda Dash - Last Filed: 04/27/20 10:54> <Trinidad Kidd - Last Filed: 04/27/20 15:47> - Allergies Allergies/Adverse Reactions: Allergies Allergy/AdvReac Type Severity Reaction Status Date / Time gabapentin AdvReac Intermediate Swelling Verified 04/26/20 12:57 methocarbamol [From Robaxin] AdvReac Intermediate Swelling Verified 04/26/20 12:57 - Home Medications Home Medications: Ambulatory Orders Aspirin [Aspirin EC] 81 mg PO DAILY 11/12/18 Ergocalciferol (Vitamin D2) [Vitamin D2] 50,000 unit PO TU 11/12/18 Ferrous Sulfate 325 mg PO BID 11/12/18 Levothyroxine [Synthroid -] 25 mcg PO DAILY 11/12/18 Pantoprazole Sodium [Protonix -] 40 mg PO DAILY 11/12/18 Carvedilol [Coreg -] 25 mg PO BID 05/13/19 Potassium Chloride [K-Dur -] 20 meq PO DAILY #30 tablet.er 05/16/19 Cetirizine HCl [Zyrtec -] 10 mg PO DAILY 12/17/19 Albuterol 0.083% Nebulizer Alia [Ventolin 0.083% Nebulizer Soln -] 1 neb NEB TID 04/18/20 Albuterol 2.5/Ipratropium 0.5 [Duoneb -] 1 inh NEB TID 04/18/20 Albuterol Sulfate Inhaler - [Ventolin HFA Inhaler -] 1 - 2 inh PO PRN PRN Baclofen 10 mg PO BID 04/18/20 Budesonide/Formeterol Fumarate [SYMBICORT 160/4.5mcg -] 2 inh PO BID 04/18/20 Duloxetine HCl [Drizalma Sprinkle] 20 mg PO DAILY 04/18/20 Tiotropium [place] [Spiriva Respimat] 2 puff IH DAILY 04/18/20 Torsemide 40 mg PO DAILY 04/18/20 Polyethylene Glycol 3350 [Miralax (For Bowel Prep) -] 17 gm PO TID PRN #1 bottle 04/20/20 Family Medical History Family Hx Congestive Heart Failure: Father ( 88 years old) Family Hx Diabetes: Mother, Father <Pineda Dash P - Last Filed: 04/27/20 10:54> Review of Systems - Review of Systems Constitutional: reports: No Symptoms Eyes: reports: No Symptoms HENT: reports: No Symptoms Neck: reports: No Symptoms Cardiovascular: reports: No Symptoms Respiratory: reports: No Symptoms Gastrointestinal: reports: Abdominal Pain, Bloating, Dysphagia, Nausea, Vomiting. denies: Diarrhea, Rectal Bleeding Genitourinary: reports: No Symptoms Breasts: reports: No Symptoms Reported Musculoskeletal: reports: No Symptoms Neurological: reports: No Symptoms Endocrine: reports: No Symptoms Hematology/Lymphatic: reports: No Symptoms Psychiatric: reports: No Symptoms <Pineda Dash P - Last Filed: 04/27/20 10:54> Physical Exam-GI Vital Signs: Vital Signs Temperature 98.5 F 04/27/20 06:00 Pulse Rate 94 H 04/27/20 06:00 Respiratory Rate 18 04/27/20 06:00 Blood Pressure 133/72 04/27/20 06:00 O2 Sat by Pulse Oximetry (%) 94 L 04/27/20 06:00 Constitutional: Yes: Well Nourished, No Distress, Calm Eyes: Yes: WNL, Conjunctiva Clear, EOM Intact HENT: Yes: WNL, Atraumatic, Normocephalic Neck: Yes: WNL, Supple, Trachea Midline Cardiovascular: Yes: WNL, Regular Rate and Rhythm Respiratory: Yes: WNL, Regular, CTA Bilaterally Gastrointestinal Inspection: Yes: WNL, Distention, Scars (fromprevious robotic surgery), Other (obese habitus). No: Ascites, Hernia ...Auscultate: Yes: Normoactive Bowel Sounds ...Palpate: No: Guarding, Mass, Pulsatile Mass, Tenderness, Epigastium, Tenderness, Rebound ...Rectal Exam: Yes: Deferred Genitourinary: Yes: WNL Breast(s): Yes: WNL Musculoskeletal: Yes: WNL Extremities: Yes: WNL Edema: No Peripheral Pulses WNL: Yes Neurological: Yes: WNL, Alert, Oriented ...Motor Strength: WNL Psychiatric: Yes: WNL, Alert, Oriented Labs: CBC, BMP 04/27/20 08:10 04/27/20 08:10 Hepatic Panel Total Bilirubin 0.6 mg/dL (0.2-1) 04/27/20 08:10 AST 49 U/L (15-37) H 04/27/20 08:10 ALT 88 U/L (13-61) H 04/27/20 08:10 Alkaline Phosphatase 80 U/L (45-117) 04/27/20 08:10 Albumin 3.3 g/dl (3.4-5.0) L 04/27/20 08:10 Hepatitis Profile WBC 8.0 K/mm3 (4.0-10.0) 04/27/20 08:10 RBC 3.67 M/mm3 (3.60-5.2) 04/27/20 08:10 Hgb 11.2 GM/dL (10.7-15.3) 04/27/20 08:10 Hct 33.3 % (32.4-45.2) D 04/27/20 08:10 MCV 90.9 fl (80-96) 04/27/20 08:10 Neutrophils % 67.0 % (42.8-82.8) 04/26/20 14:30 Lymphocytes % 23.2 % (8-40) 04/26/20 14:30 Monocytes % 6.8 % (3.8-10.2) 04/26/20 14:30 Basophils % 0.5 % (0-2.0) 04/26/20 14:30 Urine Test Results Urine Color Yellow 04/27/20 06:30 Urine Appearance Clear 04/27/20 06:30 Urine pH 5.0 (5.0-8.0) 04/27/20 06:30 Ur Specific [place] 1.032 (1.010-1.035) 04/27/20 06:30 Urine Protein Negative (NEGATIVE) 04/27/20 06:30 Urine Glucose (UA) Negative (NEGATIVE) 04/27/20 06:30 Urine Ketones Negative (NEGATIVE) 04/27/20 06:30 Urine Blood Negative (NEGATIVE) 04/27/20 06:30 Urine Nitrite Negative (NEGATIVE) 04/27/20 06:30 Urine Bilirubin Negative (NEGATIVE) 04/27/20 06:30 Ur Leukocyte Esterase Negative (NEGATIVE) 04/27/20 06:30 Serology Test 04/27/20 00:42 COVID-19 (IVANA) Pending Toxicology Tests 04/27/20 06:30 Opiates Screen Positive Cocaine Screen Positive <Pineda Dash - Last Filed: 04/27/20 10:54> Vital Signs: Vital Signs Temperature 97.9 F 04/27/20 14:00 Pulse Rate 79 04/27/20 14:00 Respiratory Rate 18 04/27/20 14:00 Blood Pressure 118/84 04/27/20 14:00 O2 Sat by Pulse Oximetry (%) 94 L 04/27/20 14:00 Labs: CBC, BMP 04/27/20 08:10 04/27/20 08:10 <Trinidad Kidd - Last Filed: 04/27/20 15:47> Imaging - Results Chest X-ray: Report Reviewed Cat Scan: Report Reviewed (No pneumoperitoneum, abscess, free fluid or bowel obstruction. Appendix is unremarkable. No acute diverticulitis or colitis. SB unremarkable. Mild splenomegaly. Pancreas, GB, adrenal glands no pathology. No biliary dilation. No aortic aneurysm or lymphadenopathy. Chronic L5 vertebral compression fracture without bony retropulsion. Marked L5-S1 degenerative disc changes.) <Pineda Dash - Last Filed: 04/27/20 10:54> Problem List - Problems (1) Abdominal pain Code(s): R10.9 - UNSPECIFIED ABDOMINAL PAIN (2) Fatty liver Code(s): K76.0 - FATTY (CHANGE OF) LIVER, NOT ELSEWHERE CLASSIFIED (3) CHF (congestive heart failure) Code(s): I50.9 - HEART FAILURE, UNSPECIFIED Qualifiers: Heart failure type: systolic Heart failure chronicity: chronic Qualified Code(s): I50.22 - Chronic systolic (congestive) heart failure (4) Hypertension Code(s): I10 - ESSENTIAL (PRIMARY) HYPERTENSION Qualifiers: Hypertension type: essential hypertension Qualified Code(s): I10 - Essential (primary) hypertension (5) Obesity (BMI 30-39.9) Code(s): E66.9 - OBESITY, UNSPECIFIED (6) Compression fracture of L5 vertebra Code(s): S32.050A - WEDGE COMPRESSION FRACTURE OF FIFTH LUMBAR VERTEBRA, INIT (7) Degenerative disc disease at L5-S1 level Code(s): M51.36 - OTHER INTERVERTEBRAL DISC DEGENERATION, LUMBAR REGION (8) Hypokalemia Code(s): E87.6 - HYPOKALEMIA (9) Cocaine abuse Code(s): F14.10 - COCAINE ABUSE, UNCOMPLICATED <Pineda Dash - Last Filed: 04/27/20 10:54> Assessment/Plan 55 yo female admitted with recurrent (intermittent) RUQ abd pain. States she has associated n/v and bloating. Her ABD CT scan is negative for any intrabd pathology. On admit she had mild leukocytosis 10.3 which has normalized to 8. Hypokalemia 3.2. BUN/Cr on admit 23.6/1.4 now 19.7/1.1....improved with hydration (elevated most likely 2/2 dehydration in absence of underlying renal disease). She tested positive for cocaine and opioids on this admission. -Hypokalemia -- ordered KDUR 40 mEq PO x1; f/u rpt BMP in AM -OOB and ambulate -f/u w/ Dr. Cortes as previous instructed (has appointment scheduled for end of month) -Needs out-patient endoscopic work-up -- unable to perform on this admission seeing as patient tested positive for cocaine -Substance abuse -- addiction counseling -Covid pending; isolation precaution -medical management -Antiemtics prn -Bentyl 10 mg PO Q8H -Miralax 17gm BID -Reconsult prn -Above plan discussed with my attending and agrees. On behalf of Dr. Kidd, thank you for the opportunity to participate in your patient's care <Pineda Dash - Last Filed: 04/27/20 10:54> AGREE WITH ASSESSMENT AND PLAN OUTLINED ABOVE. VSS BS, RUQ TENDERNESS WITHOUT REBOUND OR GUARDING. REC: HIDA WITH CCK TO R/O BILARY DYSKINESIA C/W BOWEL REGIMEN BENTYL FOR SPASM ADDICTION COUNSELING <Trinidad Kidd - Last Filed: 04/27/20 15:47>
[2020-04-27 09:39] LABS: URINE APPEARANCE CLEAR; URINE BILIRUBIN NEGATIVE (NEGATIVE); URINE COLOR YELLOW; URINE GLUCOSE (UA) NEGATIVE (NEGATIVE); URINE KETONE NEGATIVE (NEGATIVE); URINE LEUK ESTERASE NEGATIVE (NEGATIVE); URINE NITRITE NEGATIVE (NEGATIVE); URINE PROTEIN NEGATIVE (NEGATIVE)
[2020-04-27] MEDS ORDERED: PT OWN MED DRAWER 7, Y5N ONE ×2 (09:48→21:00)
[2020-04-27 10:09] LABS: METHADONE, UR NEGATIVE ng/ml (CUTOFF=300); PHENCYCLIDINE,URINE NEGATIVE ng/ml (CUTOFF=25); URINE AMPHETAMINES NEGATIVE ng/ml (CUTOFF=500); URINE BARBITURATES NEGATIVE ng/ml (CUTOFF=200); URINE BENZODIAZEPINES NEGATIVE ng/ml (CUTOFF=200)
[2020-04-27] MEDS: ASPIRIN COATED 81 MG TABLET.EC PO SCH (10:12)
[2020-04-27] MEDS: TORSEMIDE 20 MG TABLET (FP) PO SCH (10:12)
[2020-04-27] MEDS: POLYETHYLENE GLYCOL 3350 119 GM BTL PO SCH ×2 (10:12→21:03)
[2020-04-27] MEDS: CARVEDILOL 25 MG TABLET (FP) PO SCH ×2 (10:12→21:03)
[2020-04-27] MEDS: PANTOPRAZOLE 40 MG TABLET PO SCH (10:13)
[2020-04-27 10:17] LABS: COCAINE, UR POSITIVE ng/ml (CUTOFF=300); OPIATES, URI POSITIVE ng/ml (CUTOFF=300)
[2020-04-27] MEDS ORDERED: POTASSIUM CHLORIDE TABS 20 MEQ TABLET.ER (FP) PO ONE (10:45)
[2020-04-27] MEDS ORDERED: DICYCLOMINE HCL 10 MG CAPSULE PO PRN (10:52)
--- NOTE | 2020-04-27 12:47 | EKG ---
Test Reason : Blood Pressure : / mmHG Vent. Rate : 074 BPM Atrial Rate : 074 BPM P-R Int : 154 ms QRS Dur : 090 ms QT Int : 460 ms P-R-T Axes : 030 019 038 degrees QTc Int : 510 ms SINUS RHYTHM WITH PREMATURE ATRIAL COMPLEXES PROLONGED QT ABNORMAL ECG WHEN COMPARED WITH ECG OF 26-APR-2020 14:48, T WAVE INVERSION NO LONGER EVIDENT IN LATERAL LEADS Confirmed by MD DUY, PEYTON ([id number]) on 04/27/2020 12:46:36 PM Referred By: Confirmed By:PEYTON GORDILLO MD
--- NOTE | 2020-04-27 13:00 | PN ---
Teaching Attending Note Name of Resident: Stanford Tejada ATTENDING PHYSICIAN STATEMENT I saw and evaluated the patient. I reviewed the resident's note and discussed the case with the resident. I agree with the resident's findings and plan as documented. SUBJECTIVE: Seem and examined at bedside. Patient appears anxious and reports pain. Thorough physical exam shows pain is most severe under the right ribs. Patient does not have significant right upper quadrant or left lower quadrant abdominal pain or costochondral pain. She is now able to tolerate p.o. Of note, patient reported positive for cocaine on urine drug screen. Checked I stop. Patient does not have opioid prescription since last August. Patient strongly denies recent cocaine use. Discussed case with Dr. Kidd from GI: Recommends HIDA scan with CCK for work-up of biliary dyskinesia. GERARD has improved OBJECTIVE: Last Vital Signs Temp Pulse Resp BP Pulse Ox 98 F 83 18 121/73 94 L 04/27/20 10:00 04/27/20 10:00 04/27/20 10:00 04/27/20 10:00 04/27/20 10:00 PE: per resident note Labs/Imaging: reviewed ASSESSMENT AND PLAN: 55 year old female with PMHx of stable L5 vertebral body compression fracture, hypothyroid, HFpEF presenting to the ED with R sided abdominal pain that has been worsening for the last 2 days admitted for GERARD. #RUQ abdomnial pain most severe under R ribs suggestive of hepatic pain. Ddx 2/2 GERARDO vs pain seeking (positive cocaine test) -Dr. Kidd on board: appreciate recs -HIDA scan with CCK to check for biliary dyskinesia -outpt f/[facility] dr. 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
--- NOTE | 2020-04-27 14:21 | PN ---
Physical Exam: SUBJECTIVE: Patient seen and examined at bedside. The patient reported that she came to the ED mainly due to nausea and vomiting for the past 2 days, besides for the abdominal pain. The patient reports not being able to hold anything down for the past 2 days, including water, vomiting up whatever she tries to drink/eat within a few seconds. The patient also reports chills, weakness, lightheadedness, and an unusual smell to her urine after not eating or drinking for a couple days. Since getting the anti-nausea medication in the ED, the patient reports feeling a lot less nauseous. The patient reports RUQ abdominal pain of 7/10 in severity. She did not follow up yet with her pain medication doctor Dr. Huynh nor the GI doctor Dr. Cortes, since her last admission her a few days ago, due to the nausea, vomiting, and abdominal pain that forced her to come to the ED. OBJECTIVE: Vital Signs Period Temp Pulse Resp BP Sys/Sigala Pulse Ox Last 24 Hr 97.9 F-98.6 F 83-97 18-20 121-142/72-97 94-96 GENERAL: The patient is awake, alert, and fully oriented, in no acute distress. HEAD: Normal with no signs of trauma. EYES: Extraocular movements intact. No ptosis. ENT: Ears normal, nares patent, oropharynx clear without exudates, moist mucous membranes. NECK: Trachea midline, full range of motion, supple. LUNGS: Breath sounds equal, clear to auscultation bilaterally, no wheezes, no crackles, no accessory muscle use. HEART: Regular rate and rhythm, S1, S2 without murmur, rub or gallop. ABDOMEN: Soft, distended, tender to RUQ and RLQ, normoactive bowel sounds, no guarding, no rebound, no masses. Positive Kulkarni's sign. EXTREMITIES: 2+ pulses, warm, well-perfused, no edema. NEUROLOGICAL: Normal speech, gait not observed. PSYCH: Normal mood, normal affect. SKIN: Warm, dry, normal turgor, no rashes or lesions noted Laboratory Results - last 24 hr 04/26/20 04/26/20 04/26/20 14:30 14:30 21:00 WBC 10.3 H RBC 4.46 Hgb 13.5 Hct 40.5 D MCV 90.8 MCH 30.2 MCHC 33.2 RDW 14.5 Plt Count 303 D MPV 8.3 Absolute Neuts (auto) 6.9 Neutrophils % 67.0 Lymphocytes % 23.2 Monocytes % 6.8 Eosinophils % 2.5 Basophils % 0.5 Nucleated RBC % 0 Sodium 138 Potassium 3.7 Chloride 101 Carbon Dioxide 23 Anion Gap 14 BUN 23.6 H Creatinine 1.4 H Est GFR (CKD-EPI)AfAm 49.59 Est GFR (CKD-EPI)NonAf 42.79 Random Glucose 113 H Calcium 9.8 Phosphorus Magnesium Total Bilirubin 0.7 AST 71 H ALT 109 H Alkaline Phosphatase 101 Creatine Kinase 177 Creatine Kinase Index No Result Required. CK-MB (CK-2) < 1.0 Troponin I < 0.02 < 0.02 C-Reactive Protein Total Protein 8.9 H Albumin 4.0 Lipase 207 TSH Urine Color Urine Appearance Urine pH Ur Specific [place] Urine Protein Urine Glucose (UA) Urine Ketones Urine Blood Urine Nitrite Urine Bilirubin Urine Urobilinogen Ur Leukocyte Esterase Stool Occult Blood Opiates Screen Methadone Screen Barbiturate Screen Phencyclidine Screen Ur Amphetamines Screen MDMA (Ecstasy) Screen Benzodiazepines Screen Cocaine Screen U Marijuana (THC) Screen 04/27/20 04/27/20 04/27/20 06:30 06:30 08:10 WBC RBC Hgb Hct MCV MCH MCHC RDW Plt Count MPV Absolute Neuts (auto) Neutrophils % Lymphocytes % Monocytes % Eosinophils % Basophils % Nucleated RBC % Sodium 136 Potassium 3.2 L Chloride 101 Carbon Dioxide 27 Anion Gap 9 BUN 19.7 H Creatinine 1.1 Est GFR (CKD-EPI)AfAm 66.38 Est GFR (CKD-EPI)NonAf 57.27 Random Glucose 138 H Calcium 9.0 Phosphorus 4.6 Magnesium 2.1 Total Bilirubin 0.6 AST 49 H ALT 88 H Alkaline Phosphatase 80 Creatine Kinase Creatine Kinase Index CK-MB (CK-2) Troponin I < 0.02 C-Reactive Protein 2.2 H Total Protein 7.1 Albumin 3.3 L Lipase TSH 6.67 H Urine Color Yellow Urine Appearance Clear Urine pH 5.0 Ur Specific [place] 1.032 Urine Protein Negative Urine Glucose (UA) Negative Urine Ketones Negative Urine Blood Negative Urine Nitrite Negative Urine Bilirubin Negative Urine Urobilinogen 1.0 Ur Leukocyte Esterase Negative Stool Occult Blood Opiates Screen Positive A* Methadone Screen Negative Barbiturate Screen Negative Phencyclidine Screen Negative Ur Amphetamines Screen Negative MDMA (Ecstasy) Screen Negative Benzodiazepines Screen Negative Cocaine Screen Positive A* U Marijuana (THC) Screen Negative 04/27/20 04/27/20 08:10 13:44 WBC 8.0 RBC 3.67 Hgb 11.2 Hct 33.3 D MCV 90.9 MCH 30.5 MCHC 33.5 RDW 14.8 Plt Count 249 MPV 7.9 Absolute Neuts (auto) Neutrophils % Lymphocytes % Monocytes % Eosinophils % Basophils % Nucleated RBC % Sodium Potassium Chloride Carbon Dioxide Anion Gap BUN Creatinine Est GFR (CKD-EPI)AfAm Est GFR (CKD-EPI)NonAf Random Glucose Calcium Phosphorus Magnesium Total Bilirubin AST ALT Alkaline Phosphatase Creatine Kinase Creatine Kinase Index CK-MB (CK-2) Troponin I C-Reactive Protein Total Protein Albumin Lipase TSH Urine Color Urine Appearance Urine pH Ur Specific [place] Urine Protein Urine Glucose (UA) Urine Ketones Urine Blood Urine Nitrite Urine Bilirubin Urine Urobilinogen Ur Leukocyte Esterase Stool Occult Blood Negative Opiates Screen Methadone Screen Barbiturate Screen Phencyclidine Screen Ur Amphetamines Screen MDMA (Ecstasy) Screen Benzodiazepines Screen Cocaine Screen U Marijuana (THC) Screen Active Medications Generic Name Dose Route Start Last Admin Trade Name Freq PRN Reason Stop Dose Admin Albuterol Sulfate 2 puff 04/27/20 06:06 04/27/20 06:14 Ventolin Hfa Inhaler - IH 2 puff Q4H PRN Administration SHORT OF BREATH/WHEEZING Aspirin 81 mg 04/27/20 10:00 04/27/20 10:12 Ecotrin - PO 81 mg DAILY FRANNIE Administration Carvedilol 25 mg 04/27/20 10:00 04/27/20 10:12 Coreg - PO 25 mg BID FRANNIE Administration Dicyclomine HCl 10 mg 04/27/20 10:52 Bentyl - PO Q8H PRN MUSCLE SPASMS Sodium Chloride 1,000 mls @ 83 mls/hr 04/26/20 23:45 04/27/20 00:47 Normal Saline - IV 83 mls/hr ASDIR FRANNIE Administration Levothyroxine Sodium 25 mcg 04/27/20 07:00 04/27/20 06:02 Synthroid - PO 25 mcg DAILY@0700 FRANNIE Administration Morphine Sulfate 2 mg 04/26/20 23:41 04/27/20 02:45 Morphine Sulfate IVPUSH 2 mg Q6H PRN Administration PAIN LEVEL 7 - 10 Pantoprazole Sodium 40 mg 04/27/20 10:00 04/27/20 10:13 Protonix - PO 40 mg DAILY FRANNIE Administration Polyethylene Glycol 17 gm 04/27/20 10:00 04/27/20 10:12 Miralax (For Daily Use) - PO 17 gm BID FRANNIE Administration Torsemide 40 mg 04/27/20 10:00 04/27/20 10:12 Demadex - PO 40 mg DAILY FRANNIE Administration ASSESSMENT/PLAN: 55 year old female patient with past medical history of diastolic heart failure, HTN, HLD, Hypothyroidism, Alcohol and Cocaine abuse, Asthma, Chronic back pain on steroid injections, who presented to the ED with nausea, vomiting, and right upper quadrant abdominal pain. 1. Nausea/Vomiting secondary to infectious or inflammatory etiologies - The patient reports much less significant nausea now - The patient received Zofran yesterday 2. Right Upper Quadrant Abdominal pain likely secondary to GERARDO - Prominent Diffuse Hepatic Steatosis on CT A/P from 04/26/20 - Liver enzymes are elevated - Has an appointment with Dr. Cortes for outpatient follow up - Appointment with Dr. Huynh for pain management was today, will need to reschedule it - The patient is now receiving Morphine for her pain. Side effects of Morphine discontinuation can include Increased Pain. However, the patient just recovered from an GERARD (creatinine changed 0.3 from 1.1 to 1.4), so NSAIDs are partially contraindicated, and Tylenol partially contraindicated due to the elevated liver enzymes. - HIDA scan with CCK 3. GERARD - resolved - Creatinine changed 0.3 from 1.1 to 1.4 - Creatinine now back to within normal limits 4. Hypothyroidism - TSH is a little elevated at 6.67 - The patient is taking Synthroid 25 mcg 5. HTN - The patient is taking Coreg and Torsemide # FEN - Normal Saline. Monitoring Electrolytes. Sodium Controlled Diet. Dispo - Waiting for HIDA scan results. Visit type - Emergency Visit Emergency Visit: Yes ED Registration Date: 04/26/20 Care time: The patient presented to the Emergency Department on the above date and was hospitalized for further evaluation of their emergent condition. - New Patient This patient is new to me today: Yes Date on this admission: 04/27/20 - Critical Care Critical Care patient: No - Discharge Referral Referred to [facility] No ATTENDING PHYSICIAN STATEMENT I saw and evaluated the patient. I reviewed the resident's note and discussed the case with the resident. I agree with the resident's findings and plan as documented. SUBJECTIVE: OBJECTIVE: ASSESSMENT AND PLAN:
[2020-04-28] MEDS: ALBUTEROL SO4 HFA INHALER IH PRN ×2 (00:34→13:54)
[2020-04-28] MEDS: SODIUM CHLORIDE 1,000 ML IV SCH (00:38)
[2020-04-28] MEDS: LEVOTHYROXINE NA 25 MCG TABLET (FP) PO SCH (06:38)
[2020-04-28 08:54] LABS: HEMATOCRIT 32.6 % (32.4-45.2); HEMOGLOBIN 10.9 GM/dL (10.7-15.3); MCH 30.7 pg (25.7-33.7); MCHC 33.6 g/dl (32.0-36.0); MEAN CELL VOLUME 91.6 fl (80-96); MEAN PLT VOLUME 8.4 fl (7.5-11.1); PLATELET COUNT 253 K/MM3 (134-434); RBC 3.56 M/mm3 (3.60-5.2); RDW 14.5 % (11.6-15.6); WHITE BLOOD COUNT 7.5 K/mm3 (4.0-10.0)
[2020-04-28 09:27] LABS: BLOOD UREA NITROGEN 20.7 mg/dL (7-18); CALCIUM 8.7 mg/dL (8.5-10.1); CREATININE 1.1 mg/dL (0.55-1.3); POTASSIUM 3.5 mmol/L (3.5-5.1)
[2020-04-28] MEDS: oxyCODONE HCL 5 MG TABLET PO PRN ×2 (12:15→18:59)
[2020-04-28] MEDS ORDERED: PT OWN MED DRAWER 7, Y5N ONE (13:19)
[2020-04-28] MEDS: TORSEMIDE 20 MG TABLET (FP) PO SCH (13:22)
[2020-04-28] MEDS: CARVEDILOL 25 MG TABLET (FP) PO SCH (13:22)
[2020-04-28] MEDS: PANTOPRAZOLE 40 MG TABLET PO SCH (13:22)
[2020-04-28] MEDS: ASPIRIN COATED 81 MG TABLET.EC PO SCH (13:22)
[2020-04-28] MEDS: POLYETHYLENE GLYCOL 3350 119 GM BTL PO SCH (13:23)
--- NOTE | 2020-04-28 13:50 | PN.GI ---
GI Progress Note Subjective: Eating No abdominal pain Had JU today States that she has upcoming appointment with hose maker Dr. Chad Cortes - Objective Vital Signs: Vital Signs Temperature 97.5 F L 04/28/20 06:00 Pulse Rate 66 04/28/20 06:00 Respiratory Rate 18 04/28/20 06:00 Blood Pressure 113/71 04/28/20 06:00 O2 Sat by Pulse Oximetry (%) 94 L 04/28/20 06:00 Constitutional: Calm Eyes: No: Sclera Icterus Cardiovascular: Yes: Regular Rate and Rhythm Respiratory: Yes: CTA Bilaterally Gastrointestinal Inspection: No: Distention ...Auscultate: Yes: Normoactive Bowel Sounds ...Palpate: Yes: Soft. No: Hepatomegaly, Splenomegaly, Tenderness ...Percussion: No: Tympanitic Edema: No (No LE edema) Neurological: Yes: Alert Labs: CBC, BMP 04/28/20 07:30 04/28/20 07:30 Hepatic Panel Total Bilirubin 0.6 mg/dL (0.2-1) 04/27/20 08:10 AST 49 U/L (15-37) H 04/27/20 08:10 ALT 88 U/L (13-61) H 04/27/20 08:10 Alkaline Phosphatase 80 U/L (45-117) 04/27/20 08:10 Albumin 3.3 g/dl (3.4-5.0) L 04/27/20 08:10 Problem List - Problems (1) Abdominal pain Assessment/Plan: Follow up HIDA, however patient already eating Recommendations per initial GI consultation Advised patient to follow-up with Dr. Cortes as outpatient Asked to comment on pain management for? radha capsule stretch by medical translator. No evidence of acute hepatitis. No pain currently. No focal findings on physical exam. Do not think this is etiology of her pain. Avoid hepatotoxic agents encouraged weight loss through exercise, meaningful dietary changes Avoidance of alcohol If HIDA +, surgical evaluation Recall GI as needed Code(s): R10.9 - UNSPECIFIED ABDOMINAL PAIN
--- NOTE | 2020-04-28 17:49 | PN ---
Teaching Attending Note Name of Resident: Phill Cunningham ATTENDING PHYSICIAN STATEMENT I saw and evaluated the patient. I reviewed the resident's note and discussed the case with the resident. I agree with the resident's findings and plan as documented. SUBJECTIVE: Seen and examined at bedside. Pt reports pain and nausea improved but not resol melinda. Ate lunch today without isue. Pt is medically cleared for discharge. She will be sent home with reglan and oxycodone and will f/u with Dr. Cortes for further management of her hepatic steatosis. Results of a HIDA scan to r/o biliary dyskinesia are currently pending and can be assessed as an outpatient. Etiology of pt's pain is unclear but is likey heaptic 2/2 capsular distention in the setting of GERARDO and hepatomegally. OBJECTIVE: Last Vital Signs Temp Pulse Resp BP Pulse Ox 98.1 F 84 18 123/79 96 04/28/20 14:00 04/28/20 14:00 04/28/20 14:00 04/28/20 14:00 04/28/20 14:00 PE: per resident note Labs/Imaging: reviewed ASSESSMENT AND PLAN: 55 year old female with PMHx of stable L5 vertebral body compression fracture, hypothyroid, HFpEF presenting to the ED with R sided abdominal pain that has been worsening for the last 2 days admitted for GERARD. Pt was found to have + utox for cocaine. GERARD resolved with fluids, and abd pain and nausea improved. She will be sent home with reglan and oxycodone and will f/u with Dr. Cortes for further management of her hepatic steatosis. Results of a HIDA scan to r/o biliary dyskinesia are currently pending and can be assessed as an outpatient. Etiology of pt's pain is unclear but is likey heaptic 2/2 capsular distention in the setting of GERARDO and hepatomegally.
--- NOTE | 2020-04-28 18:06 | DS ---
Physical Exam: SUBJECTIVE: Patient seen and examined at bedside. The patient reports feeling less nauseous, however she is still in pain. OBJECTIVE: Vital Signs Period Temp Pulse Resp BP Sys/Sigala Pulse Ox Last 24 Hr 97.5 F-98.2 F 63-84 18-18 99-123/64-79 94-96 PHYSICAL EXAM GENERAL: The patient is awake, alert, and fully oriented, in no acute distress. HEAD: Normal with no signs of trauma. EYES: Extraocular movements intact. ENT: Ears normal, nares patent, oropharynx clear without exudates, moist mucous membranes. NECK: Trachea midline, full range of motion, supple. LUNGS: Breath sounds equal, clear to auscultation bilaterally, no wheezes, no crackles, no accessory muscle use. HEART: Regular rate and rhythm, S1, S2 without murmur, rub or gallop. ABDOMEN: Soft, tender to RUQ and RLQ, distended, normoactive bowel sounds, no guarding, no rebound, no hepatosplenomegaly, no masses. EXTREMITIES: 2+ pulses, warm, well-perfused, no edema. Positive Kulkarni's sign. NEUROLOGICAL: Normal speech, gait not observed. PSYCH: Normal mood, normal affect. SKIN: Warm, dry, normal turgor, no rashes or lesions noted. LABS Laboratory Results - last 24 hr 04/27/20 04/28/20 04/28/20 00:42 07:30 07:30 WBC 7.5 RBC 3.56 L Hgb 10.9 Hct 32.6 MCV 91.6 MCH 30.7 MCHC 33.6 RDW 14.5 Plt Count 253 MPV 8.4 Sodium 140 Potassium 3.5 Chloride 106 Carbon Dioxide 25 Anion Gap 9 BUN 20.7 H Creatinine 1.1 Est GFR (CKD-EPI)AfAm 66.38 Est GFR (CKD-EPI)NonAf 57.27 Random Glucose 118 H Calcium 8.7 Phosphorus 3.0 Magnesium 2.0 COVID-19 ([facility]) Not detected HOSPITAL COURSE: Date of Admission:04/26/20 55 year old female patient with past medical history of diastolic heart failure, HTN, HLD, Hypothyroidism, Alcohol and Cocaine abuse, Asthma, Chronic back pain on steroid injections, who presented to the ED with nausea, vomiting, and right upper quadrant abdominal pain. The patient had not been able to eat or drink for the past 2 days due to vomiting everything she would eat or drink within seconds. The patient was found to be dehydrated with an GERARD of a creatinine of 1.4 on admission. The patient was given IV fluids and medication such as Zofran. The Zofran successfully resolved most of her nausea, and the patient was able to eat again. The GERARD resolved, with the creatinine decreasing back to within normal limits of 1.1. For her nausea, the patient was discharged with Reglan. The patient had been in the hospital recently on 04/18/20, where she was found on imaging to have a fatty liver (for example on the CT A/P on 04/26/20), which is most likely GERARDO per GI. The patient has an appointment with the balance wheel hand filer Dr. Cortes for her newly discovered fatty liver. The patient also had an appointment with Dr. Huynh for pain management, but unfortunately she missed her appointment because she had to come to the emergency room. Liver enzymes were found to be elevated again on this hospital admission, and because of her fatty liver, the patient's Tylenol use for her pain had to be limited during her hospital stay. In addition, her GERARD made NSAIDs also contraindicated. The patient was therefore given Morphine for her pain during the hospital stay with instructions to follow up with Dr. Huynh again. She was also given Bentyl to help. The patient also had a HIDA scan with [facility] to evaluate for other reasons for her liver problem just before being discharged. The HIDA scan with [facility] showed no acute cystic duct obstruction, but did find significantly delayed biliary enteric transit of tracer, which the report says could be secondary to narcotic-morphine use, chronic cholecysitis, or biliary dyskinesia. The patient was told that results of her HIDA scan may be told to her by her outpatient follow up. The patient also had a mildly elevated TSH of 6.67, for which she is on Synthroid 25 mcg. Date of Discharge: 04/28/20 Minutes to complete discharge: 45 Discharge Summary Problems reviewed: Yes Reason For Visit: ACUTE KIDNEY INJURY Current Active Problems Compression fracture of L5 vertebra (Chronic) Degenerative disc disease at L5-S1 level (Chronic) Fatty liver (Chronic) Condition: Stable - Instructions Diet, Activity, Other Instructions: You were admitted to the hospital with abdominal pain, nausea, and vomiting, likely due to an enlarged fatty liver. While you were at the hospital, you were evaluated with lab work, blood work, and imaging. We treated you with IV fluids and medication, and your nausea resolved. Please take Reglan as needed for nausea when you get home and oxycodone for severe pain as needed. Diet Recommendation Please try to lose weight to help improve your liver findings of a fatty liver. Recommendation Please limit any Tylenol use to no more than 2 grams per day. Please do not take your statin medication unless your doctor tells you that it is okay to take, as statins have the risk of causing some liver inflammation. Please abstain from alcohol, which can cause liver damage, or any other recreational drugs including smoking or cocaine. Imaging Findings While you were in the hospital, the follow imaging findings were found: A CAT scan of your abdomen and pelvis found a fatty liver. Medications Please take Reglan 10 mg every 8 hours as needed for nausea. Please take Bentyl 10 mg every 8 hours as needed for abdominal pain. Please take Oxycodone 5 mg every 6 hours as needed for pain. Please continue all of your medications as prescribed. Follow ups Please follow up with your scheduled appointment with the balance wheel hand filer Dr. Chad Cortes regarding your fatty liver and discuss treatment. The HIDA scan may be discussed. Please follow up with the pain medication doctor Dr. Abdi Huynh within 1 week. Please follow up with your primary care physician Dr. Delia Urbina within 1 week. If you experience worsening of your symptoms, chest pain, abdominal pain, difficulty breathing, or worsening of your condition, please come back to the emergency room or call 911. Referrals: Delia Urbina MD [Primary Care Provider] - 1 Week Abdi Huynh MD [Staff Physician] - 1 Week Chad Cortes MD [Staff Physician] - Disposition: HOME - Home Medications Comprehensive Discharge Medication List: Ambulatory Orders Aspirin [Aspirin EC] 81 mg PO DAILY 11/12/18 Ergocalciferol (Vitamin D2) [Vitamin D2] 50,000 unit PO TU 11/12/18 Ferrous Sulfate 325 mg PO BID 11/12/18 Levothyroxine [Synthroid -] 25 mcg PO DAILY 11/12/18 Pantoprazole Sodium [Protonix -] 40 mg PO DAILY 11/12/18 Carvedilol [Coreg -] 25 mg PO BID 05/13/19 Potassium Chloride [K-Dur -] 20 meq PO DAILY #30 tablet.er 05/16/19 Cetirizine HCl [Zyrtec -] 10 mg PO DAILY 12/17/19 Albuterol 0.083% Nebulizer Alia [Ventolin 0.083% Nebulizer Soln -] 1 neb NEB TID 04/18/20 Albuterol 2.5/Ipratropium 0.5 [Duoneb -] 1 inh NEB TID 04/18/20 Albuterol Sulfate Inhaler - [Ventolin HFA Inhaler -] 1 - 2 inh PO PRN PRN 04/18/20 Baclofen 10 mg PO BID 04/18/20 Budesonide/Formeterol Fumarate [SYMBICORT 160/4.5mcg -] 2 inh PO BID 04/18/20 Duloxetine HCl [Drizalma Sprinkle] 20 mg PO DAILY 04/18/20 Tiotropium [place] [Spiriva Respimat] 2 puff IH DAILY 04/18/20 Torsemide 40 mg PO DAILY 04/18/20 Polyethylene Glycol 3350 [Miralax 255 gm Btl -] 17 gm PO TID PRN #1 bottle 04/20/20 Dicyclomine HCl [Bentyl -] 10 mg PO Q8H PRN 14 Days #42 capsule 04/28/20 Metoclopramide HCl [Reglan] 10 mg PO TID PRN 14 Days #42 tablet 04/28/20 oxyCODONE HCL [Roxicodone -] 5 mg PO Q6H PRN #7 tablet MDD 2 pills 04/28/20 This patient is new to me today: No Emergency Visit: Yes ED Registration Date: 04/26/20 Care time: The patient presented to the Emergency Department on the above date and was hospitalized for further evaluation of their emergent condition. Critical Care patient: No - Discharge Referral Referred to [facility] No ATTENDING PHYSICIAN STATEMENT I saw and evaluated the patient. I reviewed the resident's note and discussed the case with the resident. I agree with the resident's findings and plan as documented. SUBJECTIVE: OBJECTIVE: ASSESSMENT AND PLAN:
[2020-04-28 18:51] VITALS: BP 122/76; PULSE 61; TEMP 97.9
== END 2020-04-28 19:04 | disposition home or self-care (01) | DRG 469 ==
LOC: JER 12:50 → JERBED 20:47 → OBSVTOIN 23:41 → J5S 04-27 01:27
PROVIDERS: ADMIT Internal Medicine; ATTEND Internal Medicine
DX: N17.9 Acute kidney failure, unspecified (principal); E66.9 Obesity, unspecified; Z68.35 Body mass index [BMI] 35.0-35.9, adult; K59.00 Constipation, unspecified; J45.909 Unspecified asthma, uncomplicated; E03.9 Hypothyroidism, unspecified; K75.81 Nonalcoholic steatohepatitis (NASH); I50.30 Unspecified diastolic (congestive) heart failure; I11.0 Hypertensive heart disease with heart failure
CPT/HCPCS: 36415; 71046-TC-FY; 74177-TC; 76775-TC; 78226-TC; 80048; 80053; 80307; 81003; 82272; 82550; 82553; 83690; 83735; 84100; 84443; 84484; 85025; 85027; 86140; 87086; 93005; 93010; 97116-GP; 97161-GP; 99285-25; A9537; G0378; Q9967; U0003

== ENCOUNTER 2021-02-20 13:41 | Inpatient (IN) | payer OTHER ==
[2021-02-20] MEDS ORDERED: SODIUM CHLORIDE 0.9% 500 ML INFUS.BAG IV ONE (13:51)
[2021-02-20] MEDS ORDERED: ONDANSETRON *ODT* 4 MG TABLET SL ONE (14:18)
[2021-02-20] MEDS ORDERED: KETOROLAC TROMETHAMINE 30 MG/1 ML VIAL IVPUSH ONE (14:19)
[2021-02-20] MEDS ORDERED: KETOROLAC TROMETHAMINE 30 MG/1 ML VIAL ONE (14:54)
[2021-02-20] MEDS ORDERED: ONDANSETRON *ODT* 4 MG TABLET ONE (14:54)
[2021-02-20 15:36] LABS: BASO % 0.5 % (0-2.0); HEMATOCRIT 39.3 % (32.4-45.2); HEMOGLOBIN 13.6 GM/dL (10.7-15.3); LYMPH % 19.4 % (8-40); MCH 33.1 pg (25.7-33.7); MCHC 34.6 g/dl (32.0-36.0); MEAN CELL VOLUME 95.6 fl (80-96); MEAN PLT VOLUME 8.3 fl (7.5-11.1); MONO % 6.6 % (3.8-10.2); NEUT % 71.5 % (42.8-82.8); PLATELET COUNT 296 K/MM3 (134-434); RBC 4.11 M/mm3 (3.60-5.2); RDW 14.5 % (11.6-15.6); WHITE BLOOD COUNT 9.8 K/mm3 (4.0-10.0)
[2021-02-20] MEDS ORDERED: morphine CARPU-JECT 2 MG/1 ML DISP.SYRIN IVPUSH ONE (15:38)
[2021-02-20] MEDS ORDERED: morphine SULFATE 4 MG/ML VIAL ONE ×2 (15:45→21:33)
[2021-02-20 16:03] LABS: CHLORIDE 95 mmol/L (98-107); SODIUM 136 mmol/L (136-145)
[2021-02-20 16:08] LABS: CALCIUM 10.1 mg/dL (8.5-10.1)
[2021-02-20 16:09] LABS: ALBUMIN 3.8 g/dl (3.4-5.0); ANION GAP 10 MMOL/L (8-16); BLOOD UREA NITROGEN 15.2 mg/dL (7-18); CO2 31 mmol/L (21-32); GLUCOSE,RANDOM 108 mg/dL (74-106)
[2021-02-20 16:11] LABS: CREATININE 1.1 mg/dL (0.55-1.3); SGOT/AST 83 U/L (15-37); SGPT/ALT 97 U/L (13-61)
[2021-02-20 16:13] LABS: TOT PROT 8.5 g/dl (6.4-8.2)
[2021-02-20 16:14] LABS: ALK PHOS 107 U/L (45-117)
[2021-02-20 17:02] LABS: EPI CELLS >36 /uL (0-25.1); HYALINE CASTS 16 /uL (0-3.1); URINE APPEARANCE CLOUDY; URINE BILIRUBIN 2+ (NEGATIVE); URINE COLOR ORANGE; URINE GLUCOSE (UA) NEGATIVE (NEGATIVE); URINE KETONE NEGATIVE (NEGATIVE); URINE LEUK ESTERASE 1+ (NEGATIVE); URINE NITRITE POSITIVE (NEGATIVE); URINE PROTEIN 2+ (NEGATIVE); URINE WBC 41 /uL (0-25.8)
[2021-02-20] MEDS ORDERED: CEFTRIAXONE 250 MG in DEXTROSE 5%-WATER - 50 ML IVPB ONE (18:06)
[2021-02-20] MEDS ORDERED: cefTRIAXone SODIUM 1 GM VIAL ONE (18:35)
[2021-02-20] MEDS ORDERED: CEFTRIAXONE 2 GM/100 ML BAG IVPB ONE (18:36)
[2021-02-20] MEDS ORDERED: POTASSIUM CHLORIDE TABS 20 MEQ TABLET.ER (FP) PO ONE ×2 (18:48→19:21)
[2021-02-20] MEDS ORDERED: POTASSIUM CHLORIDE 20 MEQ PREMIX IVPB 100 ML IVPB ONE (18:48)
[2021-02-20 19:08] LABS: URINE BACTERIA 659.6 /uL (0-1359); URINE RBC 154 /uL (0-23.9)
[2021-02-20] MEDS ORDERED: KCL 10 MEQ IVPB 20 MEQ/200 ML INFUS.BAG IVPB ONE (19:21)
[2021-02-20] MEDS ORDERED: KCL 10 MEQ IVPB 10 MEQ/100 ML INFUS.BAG IVPB SCH (20:30)
[2021-02-20] MEDS ORDERED: HYDROmorphone HCL CARPU-JECT 2 MG/1 ML DISP.SYRIN IVPB ONE (21:02)
[2021-02-20] MEDS ORDERED: ACETAMINOPHEN 1000 MG/100 ML VIAL (NON FORMULARY) IVPB ONE (21:02)
[2021-02-20] MEDS ORDERED: morphine CARPU-JECT 4 MG/1 ML DISP.SYRIN IVPUSH ONE (21:04)
[2021-02-20] MEDS ORDERED: HYDROmorphone HCl 2 MG/ML VIAL ONE (21:32)
[2021-02-20] MEDS ORDERED: ACETAMINOPHEN INJECTION 100 ML IVPB ONE (21:33)
[2021-02-20] MEDS ORDERED: KCL 10 MEQ IVPB 10 MEQ/100 ML INFUS.BAG IVPB ONE (21:33)
[2021-02-20 23:44] LABS: MAGNESIUM 1.5 mg/dL (1.8-2.4)
[2021-02-21] MEDS ORDERED: PROCHLORPERAZINE MALEATE 5 MG TABLET PO PRN ×2 (00:46→02:30)
[2021-02-21] MEDS ORDERED: MORPHINE SULFATE 2 MG/ML VIAL IVPUSH PRN (00:53)
[2021-02-21] MEDS ORDERED: PROCHLORPERAZINE MALEATE 5 MG TABLET ONE (01:08)
[2021-02-21] MEDS ORDERED: morphine SULFATE 4 MG/ML VIAL ONE (02:27)
[2021-02-21] MEDS ORDERED: ONDANSETRON 4 MG/2 ML VIAL ONE (02:28)
[2021-02-21] MEDS ORDERED: TRIMETHOBENZAMIDE HCL 200MG/2ML INJ IM ONE (02:30)
[2021-02-21 03:45] VITALS: BMI 35.2
[2021-02-21] MEDS: morphine SULFATE 4 MG/ML VIAL IVPUSH PRN ×4 (04:16→23:31)
[2021-02-21] MEDS: LEVOTHYROXINE NA 25 MCG TABLET (FP) PO SCH (07:02)
[2021-02-21 07:28] LABS: HEMATOCRIT 33.7 % (32.4-45.2); HEMOGLOBIN 11.5 GM/dL (10.7-15.3); MCHC 34.1 g/dl (32.0-36.0); MEAN CELL VOLUME 96.8 fl (80-96); MEAN PLT VOLUME 7.9 fl (7.5-11.1); PLATELET COUNT 245 K/MM3 (134-434); RBC 3.48 M/mm3 (3.60-5.2); RDW 14.9 % (11.6-15.6); WHITE BLOOD COUNT 7.4 K/mm3 (4.0-10.0)
[2021-02-21 08:07] LABS: ALBUMIN 3.2 g/dl (3.4-5.0); BLOOD UREA NITROGEN 18.9 mg/dL (7-18); CALCIUM 8.7 mg/dL (8.5-10.1); MAGNESIUM 1.6 mg/dL (1.8-2.4)
[2021-02-21 08:11] LABS: PHOSPHOROUS 3.2 mg/dL (2.5-4.9)
[2021-02-21 08:12] LABS: BILIRUBIN,TOTAL 0.6 mg/dL (0.2-1); TOT PROT 7.1 g/dl (6.4-8.2)
[2021-02-21] MEDS ORDERED: MAGNESIUM SULF 50% (8.12 MEQ/2 ML-1 GM VIAL) IVPB ONE (08:16)
[2021-02-21] MEDS ORDERED: ALBUTEROL SO4 HFA INHALER IH PRN (08:47)
[2021-02-21] MEDS: KCL 10 MEQ IVPB 10 MEQ/100 ML INFUS.BAG IVPB SCH ×3 (08:52→11:15)
[2021-02-21] MEDS: ENOXAPARIN NA (PORCINE) 40 MG/0.4 ML DISP.SYRIN SQ SCH (11:15)
[2021-02-21] MEDS: BUDESONIDE/FORMETEROL FUMARATE 160/4.5 mcg INHALER IH SCH ×2 (15:39→23:02)
[2021-02-21] MEDS: TIOTROPIUM BROMIDE 2.5 MCG (SPIRIVA) RESPIMAT INHALER IH SCH (15:39)
[2021-02-21] MEDS: ALBUTEROL SO4 HFA INHALER IH PRN (23:07)
[2021-02-22] MEDS: LEVOTHYROXINE NA 25 MCG TABLET (FP) PO SCH (06:43)
[2021-02-22 06:53] LABS: HEMATOCRIT 32.9 % (32.4-45.2); HEMOGLOBIN 11.6 GM/dL (10.7-15.3); MCH 33.7 pg (25.7-33.7); MCHC 35.2 g/dl (32.0-36.0); MEAN CELL VOLUME 95.8 fl (80-96); MEAN PLT VOLUME 7.9 fl (7.5-11.1); PLATELET COUNT 239 K/MM3 (134-434); RBC 3.44 M/mm3 (3.60-5.2); RDW 14.5 % (11.6-15.6); WHITE BLOOD COUNT 6.4 K/mm3 (4.0-10.0)
[2021-02-22 07:09] LABS: CALCIUM 8.4 mg/dL (8.5-10.1)
[2021-02-22 07:10] LABS: BLOOD UREA NITROGEN 10.2 mg/dL (7-18); MAGNESIUM 2.2 mg/dL (1.8-2.4)
[2021-02-22 07:13] LABS: PHOSPHOROUS 2.6 mg/dL (2.5-4.9)
[2021-02-22 07:14] LABS: BILIRUBIN,TOTAL 0.5 mg/dL (0.2-1); TOT PROT 6.8 g/dl (6.4-8.2)
[2021-02-22 07:16] LABS: CREATININE 0.7 mg/dL (0.55-1.3)
[2021-02-22] MEDS ORDERED: POLYETHYLENE GLYCOL 3350 119 GM BTL PO PRN (08:34)
[2021-02-22] MEDS: morphine SULFATE 4 MG/ML VIAL IVPUSH PRN ×3 (09:12→22:28)
[2021-02-22] MEDS: CARVEDILOL 25 MG TABLET (FP) PO SCH ×2 (09:13→21:00)
[2021-02-22] MEDS: ENOXAPARIN NA (PORCINE) 40 MG/0.4 ML DISP.SYRIN SQ SCH (09:13)
[2021-02-22] MEDS: PANTOPRAZOLE 40 MG TABLET PO SCH (09:13)
[2021-02-22] MEDS: KCL 10 MEQ IVPB 10 MEQ/100 ML INFUS.BAG IVPB SCH ×3 (09:13→11:26)
[2021-02-22] MEDS: TIOTROPIUM BROMIDE 2.5 MCG (SPIRIVA) RESPIMAT INHALER IH SCH (09:14)
[2021-02-22] MEDS: BUDESONIDE/FORMETEROL FUMARATE 160/4.5 mcg INHALER IH SCH ×2 (09:14→21:00)
[2021-02-22] MEDS: ZINC OXIDE/PANTHENOL/VITAMIN E 56 GM TUBE TP PRN (09:37)
[2021-02-22] MEDS ORDERED: DEXTROSE 5%-WATER 100 ML IVPB ONE (13:45)
[2021-02-22] MEDS: CEFTRIAXONE 2 GM in DEXTROSE 5%-WATER 100 ML IVPB SCH (13:57)
[2021-02-23] MEDS: morphine SULFATE 4 MG/ML VIAL IVPUSH PRN ×2 (05:10→12:41)
[2021-02-23] MEDS: LEVOTHYROXINE NA 25 MCG TABLET (FP) PO SCH (06:25)
[2021-02-23 07:56] LABS: HEMATOCRIT 31.4 % (32.4-45.2); HEMOGLOBIN 10.9 GM/dL (10.7-15.3); MCH 33.6 pg (25.7-33.7); MCHC 34.7 g/dl (32.0-36.0); MEAN CELL VOLUME 96.9 fl (80-96); MEAN PLT VOLUME 8.3 fl (7.5-11.1); PLATELET COUNT 240 K/MM3 (134-434); RBC 3.24 M/mm3 (3.60-5.2); RDW 14.7 % (11.6-15.6); WHITE BLOOD COUNT 6.9 K/mm3 (4.0-10.0)
[2021-02-23] MEDS ORDERED: DEXTROSE 5%-WATER 100 ML IVPB ONE ×2 (08:15→10:42)
[2021-02-23 08:23] LABS: ALBUMIN 2.9 g/dl (3.4-5.0); BLOOD UREA NITROGEN 11.3 mg/dL (7-18); CALCIUM 8.3 mg/dL (8.5-10.1)
[2021-02-23 08:28] LABS: BILIRUBIN,TOTAL 0.5 mg/dL (0.2-1); CREATININE 0.8 mg/dL (0.55-1.3); TOT PROT 6.5 g/dl (6.4-8.2)
[2021-02-23] MEDS: ENOXAPARIN NA (PORCINE) 40 MG/0.4 ML DISP.SYRIN SQ SCH (08:59)
[2021-02-23] MEDS: PANTOPRAZOLE 40 MG TABLET PO SCH (08:59)
[2021-02-23] MEDS: CEFTRIAXONE 2 GM in DEXTROSE 5%-WATER 100 ML IVPB SCH (08:59)
[2021-02-23] MEDS: CARVEDILOL 25 MG TABLET (FP) PO SCH (08:59)
[2021-02-23] MEDS: TIOTROPIUM BROMIDE 2.5 MCG (SPIRIVA) RESPIMAT INHALER IH SCH (09:00)
[2021-02-23] MEDS: ALBUTEROL SO4 HFA INHALER IH PRN (09:01)
[2021-02-23] MEDS: BUDESONIDE/FORMETEROL FUMARATE 160/4.5 mcg INHALER IH SCH (09:01)
[2021-02-23] MEDS: ZINC OXIDE/PANTHENOL/VITAMIN E 56 GM TUBE TP PRN (11:22)
[2021-02-23 14:37] VITALS: BP 113/72; PULSE 59; TEMP 97.7
== END 2021-02-23 18:05 | disposition home or self-care (01) | DRG 690 ==
LOC: JER 13:41 → JERBED 21:04 → J7W 02-21 03:47
PROVIDERS: ADMIT Hospitalist; ATTEND Internal Medicine
DX: N10 Acute pyelonephritis (principal); I50.32 Chronic diastolic (congestive) heart failure; E87.3 Alkalosis; N12 Tubulo-interstitial nephritis, not specified as acute or chronic; E87.6 Hypokalemia; I11.0 Hypertensive heart disease with heart failure; E78.5 Hyperlipidemia, unspecified; E03.9 Hypothyroidism, unspecified; F41.9 Anxiety disorder, unspecified; E66.9 Obesity, unspecified; Z68.35 Body mass index [BMI] 35.0-35.9, adult; G43.909 Migraine, unspecified, not intractable, without status migrainosus; K76.0 Fatty (change of) liver, not elsewhere classified; R74.01 Elevation of levels of liver transaminase levels; J44.9 Chronic obstructive pulmonary disease, unspecified
CPT/HCPCS: 36415; 72100-TC-FY; 74176-TC; 76775-TC; 80053; 81003; 83036; 83735; 84100; 85025; 85027; 87086; 93005; 93010; 99285-25; C9803; J0131; Q0162; U0003; U0005

== ENCOUNTER 2021-03-05 20:50 | Emergency (ER) | payer OTHER ==
[2021-03-05 20:58] VITALS: BP 136/111; PULSE 100; TEMP 98.2; BMI 30.9
[2021-03-05] MEDS ORDERED: ACETAMINOPHEN 500 MG TABLET (FP) PO ONE (21:41)
[2021-03-05] MEDS ORDERED: LIDOCAINE 5% TOPICAL PATCH TP ONE (21:41)
[2021-03-05] MEDS ORDERED: ACETAMINOPHEN 325 MG TABLET (FP) ONE (22:31)
[2021-03-05] MEDS ORDERED: LIDOCAINE 5% TOPICAL PATCH ONE (22:32)
[2021-03-05] MEDS ORDERED: ONDANSETRON *ODT* 4 MG TABLET SL ONE (23:34)
[2021-03-05] MEDS ORDERED: ONDANSETRON *ODT* 4 MG TABLET ONE (23:34)
[2021-03-05] MEDS ORDERED: KETOROLAC TROMETHAMINE 30 MG/1 ML VIAL IM ONE (23:37)
[2021-03-05] MEDS ORDERED: KETOROLAC TROMETHAMINE 30 MG/1 ML VIAL ONE (23:39)
[2021-03-06] MEDS ORDERED: LIDOCAINE PATCH REMOVAL MC ONE (10:00)
== END 2021-03-05 23:51 | disposition home or self-care (01) ==
LOC: JER 20:50
PROC: 3E023GC Introduction of Other Therapeutic Substance into Muscle, Percutaneous Approach (ICD-10-PCS; principal; 2021-03-05)
DX: R51.9 Headache, unspecified (principal); Y04.8XXA Assault by other bodily force, initial encounter
CPT/HCPCS: 70450-TC; 70486-TC; 71045-TC-FY; 71101-TC-RT-FY; 72125-TC; 99285-25; Q0162

== ENCOUNTER 2021-03-20 05:26 | Day surgery (SDC) | payer OTHER ==
[2021-03-17 13:53] VITALS: BMI 33.8
[2021-03-20] MEDS ORDERED: MIDAZOLAM HCL 2 MG/2 ML SINGLE DOSE VIAL ONE (14:02)
[2021-03-20] MEDS ORDERED: PROPOFOL 20 ML ONE ×2 (14:07)
[2021-03-20 18:03] VITALS: BP 118/78; PULSE 78; TEMP 98
== END 2021-03-20 17:00 | disposition home or self-care (01) ==
LOC: JASU-SURG 05:26
PROVIDERS: ATTEND Urology
PROC: 0TF3XZZ Fragmentation in Right Kidney Pelvis, External Approach (ICD-10-PCS; principal; 2021-03-20 14:07)
DX: N20.0 Calculus of kidney (principal)

== ENCOUNTER 2021-04-03 05:33 | Inpatient (IN) | payer OTHER ==
[2021-03-30 16:54] VITALS: BMI 33.8
[2021-04-03] MEDS ORDERED: MIDAZOLAM HCL 2 MG/2 ML SINGLE DOSE VIAL ONE ×2 (14:20→14:22)
[2021-04-03 15:37] LABS: HEMATOCRIT 38.3 % (32.4-45.2); HEMOGLOBIN 12.9 GM/dL (10.7-15.3); MCH 31.7 pg (25.7-33.7); MCHC 33.6 g/dl (32.0-36.0); MEAN CELL VOLUME 94.2 fl (80-96); MEAN PLT VOLUME 7.9 fl (7.5-11.1); PLATELET COUNT 382 10^3/uL (134-434); RBC 4.07 M/mm3 (3.60-5.2); RDW 13.9 % (11.6-15.6)
[2021-04-03 15:44] LABS: INR 1.14 (0.83-1.09); PROTHROMBIN TIME (PATIENT) 13.7 SEC (9.7-13.0)
[2021-04-03 15:46] LABS: ACTIVATED PTT 28.6 SECONDS (25.2-36.5)
[2021-04-03 15:59] LABS: CHLORIDE 99 mmol/L (98-107); SODIUM 136 mmol/L (136-145)
[2021-04-03 16:03] LABS: ANION GAP 12 MMOL/L (8-16); BLOOD UREA NITROGEN 16.1 mg/dL (7-18); CO2 25 mmol/L (21-32); GLUCOSE,RANDOM 130 mg/dL (74-106)
[2021-04-03] MEDS ORDERED: ACETAMINOPHEN 1000 MG/100 ML VIAL (NON FORMULARY) IVPB ONE ×2 (16:15→19:12)
[2021-04-03] MEDS ORDERED: ACETAMINOPHEN INJECTION 100 ML IVPB ONE (16:22)
[2021-04-03] MEDS ORDERED: POTASSIUM CHLORIDE TABS 20 MEQ TABLET.ER (FP) PO ONE ×2 (17:11→19:07)
[2021-04-03] MEDS ORDERED: ALBUTEROL SO4 HFA INHALER IH PRN (17:32)
[2021-04-03] MEDS: SODIUM CHLORIDE 1,000 ML IV SCH (20:55)
[2021-04-03] MEDS ORDERED: traMADol HCL 50 MG TABLET PO ONE (21:02)
[2021-04-03] MEDS ORDERED: morphine CARPU-JECT 2 MG/1 ML DISP.SYRIN IVPUSH ONE (21:04)
[2021-04-03] MEDS ORDERED: PHENAZOPYRIDINE HCL 100 MG TABLET (FP) PO ONE (21:06)
[2021-04-03] MEDS ORDERED: oxyCODONE HCL 5 MG TABLET PO ONE (21:09)
[2021-04-03] MEDS ORDERED: DOCUSATE SODIUM 100 MG CAPSULE (FP) PO ONE (21:09)
[2021-04-03 21:27] LABS: MAGNESIUM 1.4 mg/dL (1.8-2.4)
[2021-04-03] MEDS ORDERED: MAGNESIUM SULF 50% (8.12 MEQ/2 ML-1 GM VIAL) IVPB ONE (21:33)
[2021-04-03] MEDS: BUDESONIDE/FORMETEROL FUMARATE 160/4.5 mcg INHALER IH SCH (22:49)
[2021-04-03] MEDS: CARVEDILOL 25 MG TABLET (FP) PO SCH (22:58)
[2021-04-04] MEDS: ACETAMINOPHEN 1000 MG/100 ML VIAL (NON FORMULARY) IVPB PRN ×2 (00:29→10:39)
[2021-04-04] MEDS ORDERED: ACETAMINOPHEN 1000 MG/100 ML VIAL (NON FORMULARY) IVPB PRN (01:00)
[2021-04-04] MEDS ORDERED: oxyCODONE HCL 5 MG TABLET PO ONE ×2 (04:39→16:21)
[2021-04-04] MEDS: LEVOTHYROXINE NA 25 MCG TABLET (FP) PO SCH (06:14)
[2021-04-04 07:33] LABS: HEMATOCRIT 32.4 % (32.4-45.2); HEMOGLOBIN 11.1 GM/dL (10.7-15.3); MCH 32.5 pg (25.7-33.7); MCHC 34.2 g/dl (32.0-36.0); MEAN CELL VOLUME 95.2 fl (80-96); MEAN PLT VOLUME 7.9 fl (7.5-11.1); PLATELET COUNT 241 10^3/uL (134-434); RDW 13.9 % (11.6-15.6); WHITE BLOOD COUNT 7.2 K/mm3 (4.0-10.0)
[2021-04-04 07:46] LABS: BLOOD UREA NITROGEN 19.5 mg/dL (7-18); CALCIUM 8.1 mg/dL (8.5-10.1)
[2021-04-04 07:48] LABS: CHOLESTEROL 217 mg/dL (50-200)
[2021-04-04 07:50] LABS: CREATININE 1.5 mg/dL (0.55-1.3); LDL CHOLESTEROL (ONLY SJRH) 137 mg/dL (5-100); TRIGLYCERIDES 288 mg/dL (0-150)
[2021-04-04 07:51] LABS: HDL CHOLESTEROL 35 mg/dL (40-60)
[2021-04-04] MEDS ORDERED: PT OWN MED DRAWER 7, Y5N ONE (08:47)
[2021-04-04] MEDS: CARVEDILOL 25 MG TABLET (FP) PO SCH ×2 (09:33→22:56)
[2021-04-04] MEDS: PANTOPRAZOLE 20 MG TABLET PO SCH (09:33)
[2021-04-04] MEDS: FLUTICASONE PROP 0.05% 16 GM NASAL SPRAY NS SCH (09:34)
[2021-04-04] MEDS: TIOTROPIUM BROMIDE 2.5 MCG (SPIRIVA) RESPIMAT INHALER IH SCH (09:34)
[2021-04-04] MEDS: BUDESONIDE/FORMETEROL FUMARATE 160/4.5 mcg INHALER IH SCH ×2 (09:34→22:56)
[2021-04-04] MEDS ORDERED: ASPIRIN 81 MG CHEWABLE TABLETS PO SCH (10:00)
[2021-04-04] MEDS ORDERED: SOLIFENACIN SUCCINATE 5 MG TAB PO SCH (10:00)
[2021-04-04] MEDS: SODIUM CHLORIDE 1,000 ML IV SCH (10:25)
[2021-04-04] MEDS ORDERED: SODIUM CHLORIDE 1,000 ML IV SCH (13:00)
[2021-04-04] MEDS ORDERED: LIDOCAINE 5% TOPICAL PATCH TP SCH (13:15)
[2021-04-04] MEDS ORDERED: POTASSIUM CHLORIDE TABS 20 MEQ TABLET.ER (FP) PO ONE ×2 (16:19→17:26)
[2021-04-04 16:55] LABS: BLOOD UREA NITROGEN 14.6 mg/dL (7-18); CALCIUM 8.4 mg/dL (8.5-10.1)
[2021-04-04 16:58] LABS: CREATININE 1.3 mg/dL (0.55-1.3)
[2021-04-04] MEDS ORDERED: MELATONIN 5 MG TABLETS PO ONE (20:21)
[2021-04-04] MEDS ORDERED: LIDOCAINE PATCH REMOVAL MC SCH (22:00)
[2021-04-05] MEDS ORDERED: oxyCODONE HCL 5 MG TABLET PO ONE (04:59)
[2021-04-05] MEDS: LEVOTHYROXINE NA 25 MCG TABLET (FP) PO SCH (06:00)
[2021-04-05 07:13] LABS: BLOOD UREA NITROGEN 13.5 mg/dL (7-18)
[2021-04-05 07:30] LABS: CREATININE 0.9 mg/dL (0.55-1.3)
[2021-04-05] MEDS ORDERED: POLYETHYLENE GLYCOL 3350 119 GM BTL PO ONE (08:06)
[2021-04-05] MEDS ORDERED: ACETAMINOPHEN/CAFFEINE/BUTALBITAL 1 TAB PO ONE (08:08)
[2021-04-05] MEDS ORDERED: POLYETHYLENE GLYCOL (HEALTHYLAX) 3350 17 GM PACKET PO ONE (08:30)
[2021-04-05] MEDS: CARVEDILOL 25 MG TABLET (FP) PO SCH (09:37)
[2021-04-05] MEDS: PANTOPRAZOLE 20 MG TABLET PO SCH (09:37)
[2021-04-05] MEDS: FLUTICASONE PROP 0.05% 16 GM NASAL SPRAY NS SCH (09:38)
[2021-04-05] MEDS: BUDESONIDE/FORMETEROL FUMARATE 160/4.5 mcg INHALER IH SCH (09:39)
[2021-04-05] MEDS: TIOTROPIUM BROMIDE 2.5 MCG (SPIRIVA) RESPIMAT INHALER IH SCH (09:39)
[2021-04-05] MEDS ORDERED: ASPIRIN 81 MG CHEWABLE TABLETS PO SCH (10:00)
[2021-04-05] MEDS ORDERED: SOLIFENACIN SUCCINATE 5 MG TAB PO SCH (10:00)
[2021-04-05] MEDS ORDERED: LIDOCAINE 5% TOPICAL PATCH TP SCH (10:00)
[2021-04-05] MEDS ORDERED: PT OWN MED DRAWER 7, Y5N ONE (10:17)
[2021-04-05] MEDS ORDERED: FUROSEMIDE 40 MG TABLET (FP) PO SCH (12:45)
[2021-04-05 15:19] VITALS: BP 119/66; PULSE 59; TEMP 98.4
[2021-04-05] MEDS ORDERED: LIDOCAINE PATCH REMOVAL MC SCH (22:00)
== END 2021-04-05 17:17 | disposition home or self-care (01) | DRG 951 ==
LOC: SUATTDRO 05:33 → JASU-SURG 05:33 → JASUSAT 05:33 → J4W 20:45 → JASUSAT 20:46 → J4W 20:46 → UNDOADMIN 04-04 19:38 → J4W 04-04 19:38
PROVIDERS: ADMIT Internal Medicine; ATTEND Internal Medicine
PROC: 0TC17ZZ Extirpation of Matter from Left Kidney, Via Natural or Artificial Opening (ICD-10-PCS; principal; 2021-04-03 13:00)
DX: I95.81 Postprocedural hypotension (principal); N20.0 Calculus of kidney; E03.9 Hypothyroidism, unspecified; E78.5 Hyperlipidemia, unspecified; N17.9 Acute kidney failure, unspecified; F41.9 Anxiety disorder, unspecified; G43.909 Migraine, unspecified, not intractable, without status migrainosus; E66.9 Obesity, unspecified; Z68.36 Body mass index [BMI] 36.0-36.9, adult; I11.0 Hypertensive heart disease with heart failure; I50.30 Unspecified diastolic (congestive) heart failure; R94.31 Abnormal electrocardiogram [ECG] [EKG]; D72.829 Elevated white blood cell count, unspecified; E87.6 Hypokalemia; K76.0 Fatty (change of) liver, not elsewhere classified; E86.0 Dehydration; M54.5 Low back pain
CPT/HCPCS: 36415; 76775-TC; 80048; 80061; 82550; 82570; 83721; 83735; 84100; 84443; 84484; 84540; 85027; 85610; 85730; 93005; 93010; 93306-TC; 94010; 94760; C9803; J0131; U0003; U0005

== ENCOUNTER 2021-05-15 16:45 | Inpatient (IN) | payer OTHER ==
[2021-05-15] MEDS ORDERED: SODIUM CHLORIDE 1,000 ML IV STA (17:44)
[2021-05-15] MEDS ORDERED: ACETAMINOPHEN 1000 MG/100 ML VIAL (NON FORMULARY) IVPB ONE (17:52)
[2021-05-15] MEDS ORDERED: ONDANSETRON 4 MG/2 ML VIAL IVPUSH ONE (17:52)
[2021-05-15] MEDS ORDERED: morphine CARPU-JECT 2 MG/1 ML DISP.SYRIN IVPUSH ONE (18:01)
[2021-05-15] MEDS ORDERED: SODIUM CHLORIDE 500 ML IV STA (18:01)
[2021-05-15 18:33] LABS: EPI CELLS >36 /uL (0-25.1); HYALINE CASTS 0 /uL (0-3.1); URINE APPEARANCE CLEAR; URINE BACTERIA 848 /uL (0-1359); URINE BILIRUBIN NEGATIVE (NEGATIVE); URINE COLOR YELLOW; URINE GLUCOSE (UA) NEGATIVE (NEGATIVE); URINE KETONE NEGATIVE (NEGATIVE); URINE LEUK ESTERASE TRACE (NEGATIVE); URINE NITRITE NEGATIVE (NEGATIVE); URINE PROTEIN NEGATIVE (NEGATIVE); URINE RBC 4 /uL (0-23.9); URINE WBC 36 /uL (0-25.8)
[2021-05-15] MEDS ORDERED: ONDANSETRON 4 MG/2 ML VIAL ONE (18:34)
[2021-05-15] MEDS ORDERED: MORPHINE SULFATE 2 MG/ML VIAL ONE (18:34)
[2021-05-15] MEDS ORDERED: ACETAMINOPHEN INJECTION 100 ML IVPB ONE (18:34)
[2021-05-15 18:40] LABS: BASO % 0.2 % (0-2.0); EOS % 0.3 % (0-4.5); HEMATOCRIT 34.9 % (32.4-45.2); HEMOGLOBIN 12.2 GM/dL (10.7-15.3); LYMPH % 9.7 % (8-40); MCH 31.9 pg (25.7-33.7); MCHC 34.9 g/dl (32.0-36.0); MEAN CELL VOLUME 91.4 fl (80-96); MEAN PLT VOLUME 7.6 fl (7.5-11.1); MONO % 6.6 % (3.8-10.2); NEUT % 83.2 % (42.8-82.8); PLATELET COUNT 236 10^3/uL (134-434); RBC 3.82 M/mm3 (3.60-5.2); RDW 14.4 % (11.6-15.6); WHITE BLOOD COUNT 12.5 K/mm3 (4.0-10.0)
[2021-05-15] MEDS ORDERED: CEFTRIAXONE 1,000 MG in DEXTROSE 5%-WATER - 50 ML IVPB ONE (18:57)
[2021-05-15] MEDS ORDERED: CEFTRIAXONE 1 GM/50 ML BAG ONE (19:38)
[2021-05-15 19:55] LABS: CHLORIDE 99 mmol/L (98-107); SODIUM 137 mmol/L (136-145)
[2021-05-15 19:58] LABS: ALBUMIN 3.2 g/dl (3.4-5.0); BLOOD UREA NITROGEN 8.2 mg/dL (7-18); CALCIUM 8.8 mg/dL (8.5-10.1); CO2 26 mmol/L (21-32); GLUCOSE,RANDOM 139 mg/dL (74-106)
[2021-05-15 20:00] LABS: SGPT/ALT 77 U/L (13-61)
[2021-05-15 20:01] LABS: CREATININE 1.1 mg/dL (0.55-1.3); SGOT/AST 50 U/L (15-37)
[2021-05-15 20:02] LABS: ANION GAP 13 MMOL/L (8-16); BILIRUBIN,TOTAL 1.1 mg/dL (0.2-1); TOT PROT 7.7 g/dl (6.4-8.2)
[2021-05-15 20:03] LABS: ALK PHOS 109 U/L (45-117)
[2021-05-15] MEDS ORDERED: METOCLOPRAMIDE HCL INJECTION 10 MG/2 ML VIAL IVPUSH ONE (20:14)
[2021-05-15] MEDS ORDERED: morphine SULFATE 4 MG/ML VIAL IVPUSH ONE (20:15)
[2021-05-15] MEDS ORDERED: METOCLOPRAMIDE HCL INJECTION 10 MG/2 ML VIAL ONE (20:28)
[2021-05-15] MEDS ORDERED: morphine SULFATE 4 MG/ML VIAL ONE (20:28)
[2021-05-15] MEDS ORDERED: KCL 10 MEQ IVPB 10 MEQ/100 ML INFUS.BAG IVPB ONE ×2 (21:59→22:57)
[2021-05-15] MEDS: KCL 10 MEQ IVPB 10 MEQ/100 ML INFUS.BAG IVPB SCH ×2 (22:14→23:06)
[2021-05-15] MEDS ORDERED: POTASSIUM CHLORIDE ORAL LIQUID 20 MEQ/15 ML PO ONE (22:16)
[2021-05-15] MEDS ORDERED: POTASSIUM CHLORIDE ORAL LIQUID 20 MEQ/15 ML ONE (22:22)
[2021-05-16] MEDS ORDERED: KCL 10 MEQ IVPB 10 MEQ/100 ML INFUS.BAG IVPB ONE ×2 (00:57→03:50)
[2021-05-16] MEDS ORDERED: morphine CARPU-JECT 4 MG/1 ML DISP.SYRIN IVPUSH ONE (00:59)
[2021-05-16] MEDS ORDERED: morphine SULFATE 4 MG/ML VIAL ONE (01:02)
[2021-05-16] MEDS: KCL 10 MEQ IVPB 10 MEQ/100 ML INFUS.BAG IVPB SCH ×5 (01:07→14:45)
[2021-05-16] MEDS ORDERED: POTASSIUM CHLORIDE 20 MEQ PREMIX IVPB 100 ML IVPB ONE (02:47)
[2021-05-16] MEDS ORDERED: MORPHINE SULFATE 2 MG/ML VIAL IVPUSH PRN (05:37)
[2021-05-16] MEDS ORDERED: morphine CARPU-JECT 4 MG/1 ML DISP.SYRIN IVPUSH PRN (05:37)
[2021-05-16] MEDS ORDERED: MORPHINE SULFATE 2 MG/ML VIAL ONE (05:45)
[2021-05-16 06:46] LABS: HEMATOCRIT 32.1 % (32.4-45.2); HEMOGLOBIN 11.2 GM/dL (10.7-15.3); MCH 32.7 pg (25.7-33.7); MCHC 34.8 g/dl (32.0-36.0); MEAN PLT VOLUME 7.6 fl (7.5-11.1); PLATELET COUNT 192 10^3/uL (134-434); RBC 3.41 M/mm3 (3.60-5.2); RDW 14.5 % (11.6-15.6); WHITE BLOOD COUNT 7.9 K/mm3 (4.0-10.0)
[2021-05-16 07:08] LABS: ALBUMIN 2.8 g/dl (3.4-5.0); BLOOD UREA NITROGEN 11.3 mg/dL (7-18); CALCIUM 7.5 mg/dL (8.5-10.1)
[2021-05-16 07:14] LABS: BILIRUBIN,TOTAL 0.9 mg/dL (0.2-1); MAGNESIUM 1.3 mg/dL (1.8-2.4); PHOSPHOROUS 2.4 mg/dL (2.5-4.9); TOT PROT 6.6 g/dl (6.4-8.2)
[2021-05-16] MEDS ORDERED: KCL 10 MEQ IVPB 10 MEQ/100 ML INFUS.BAG IVPB SCH ×2 (08:15→09:15)
[2021-05-16] MEDS ORDERED: MAGNESIUM SULF 50% (8.12 MEQ/2 ML-1 GM VIAL) IVPB ONE (09:14)
[2021-05-16] MEDS ORDERED: cefTRIAXone SODIUM 1 GM VIAL ONE (09:59)
[2021-05-16] MEDS ORDERED: DEXTROSE 5%-WATER - 50 ML IVPB ONE (09:59)
[2021-05-16] MEDS ORDERED: POTASSIUM PHOSPHATE 30 MM in SODIUM CHLORIDE 500 ML IVPB ONE (10:00)
[2021-05-16] MEDS: POTASSIUM CHLORIDE ORAL LIQUID 20 MEQ/15 ML PO SCH ×2 (10:15→21:27)
[2021-05-16] MEDS: ALBUTEROL SO4 HFA INHALER IH PRN (10:15)
[2021-05-16] MEDS: BUDESONIDE/FORMETEROL FUMARATE 160/4.5 mcg INHALER IH SCH ×2 (11:01→22:30)
[2021-05-16] MEDS: CEFTRIAXONE 1 GM in DEXTROSE 5%-WATER - 50 ML IVPB SCH (11:02)
[2021-05-16] MEDS: TIOTROPIUM BROMIDE 2.5 MCG (SPIRIVA) RESPIMAT INHALER IH SCH (11:02)
[2021-05-16] MEDS ORDERED: LEVOTHYROXINE SODIUM 100 MCG VIAL IVPUSH ONE (12:14)
[2021-05-16] MEDS ORDERED: MAGNESIUM SULFATE IN WATER 2 GM/50 ML IVPB IVPB ONE (12:30)
[2021-05-16] MEDS ORDERED: FUROSEMIDE 40 MG TABLET (FP) PO SCH (14:45)
[2021-05-16] MEDS: ASPIRIN 81 MG CHEWABLE TABLETS PO SCH (15:38)
[2021-05-16] MEDS: SOLIFENACIN SUCCINATE 5 MG TAB PO SCH (15:39)
[2021-05-16] MEDS: PANTOPRAZOLE 20 MG TABLET PO SCH (15:39)
[2021-05-16] MEDS ORDERED: PT OWN MED DRAWER 7, Y5N ONE (16:26)
[2021-05-16] MEDS ORDERED: ACETAMINOPHEN 1000 MG/100 ML VIAL (NON FORMULARY) IVPB PRN (16:36)
[2021-05-16 17:32] LABS: BLOOD UREA NITROGEN 9.5 mg/dL (7-18); CALCIUM 8.2 mg/dL (8.5-10.1); MAGNESIUM 2.4 mg/dL (1.8-2.4)
[2021-05-16 17:35] LABS: CREATININE 0.9 mg/dL (0.55-1.3); PHOSPHOROUS 1.9 mg/dL (2.5-4.9)
[2021-05-16] MEDS: MORPHINE SULFATE 2 MG/ML VIAL IVPUSH PRN (18:33)
[2021-05-16] MEDS ORDERED: POTASSIUM PHOSPHATE 30 MM in SODIUM CHLORIDE 250 ML IVPB ONE (18:56)
[2021-05-16 19:38] VITALS: BMI 34.3
[2021-05-16] MEDS: CARVEDILOL 25 MG TABLET (FP) PO SCH (21:27)
[2021-05-16] MEDS: LOSARTAN POTASSIUM 50 MG TABLET PO SCH (21:27)
[2021-05-16] MEDS: ATORVASTATIN CA 20 MG TABLET (FP) PO SCH (21:27)
[2021-05-17] MEDS: MORPHINE SULFATE 2 MG/ML VIAL IVPUSH PRN ×3 (00:48→16:44)
[2021-05-17] MEDS: LEVOTHYROXINE NA 25 MCG TABLET (FP) PO SCH (06:12)
[2021-05-17 08:55] LABS: HEMATOCRIT 29.1 % (32.4-45.2); HEMOGLOBIN 10.1 GM/dL (10.7-15.3); MCH 32.8 pg (25.7-33.7); MCHC 34.6 g/dl (32.0-36.0); MEAN CELL VOLUME 94.7 fl (80-96); PLATELET COUNT 219 10^3/uL (134-434); RBC 3.07 M/mm3 (3.60-5.2); RDW 14.4 % (11.6-15.6); WHITE BLOOD COUNT 5.8 K/mm3 (4.0-10.0)
[2021-05-17] MEDS ORDERED: cefTRIAXone SODIUM 1 GM VIAL ONE (09:02)
[2021-05-17] MEDS ORDERED: DEXTROSE 5%-WATER - 50 ML IVPB ONE (09:02)
[2021-05-17] MEDS: CEFTRIAXONE 1 GM in DEXTROSE 5%-WATER - 50 ML IVPB SCH (09:07)
[2021-05-17] MEDS: POTASSIUM CHLORIDE ORAL LIQUID 20 MEQ/15 ML PO SCH ×2 (09:07→21:36)
[2021-05-17] MEDS: LOSARTAN POTASSIUM 50 MG TABLET PO SCH ×2 (09:07→21:36)
[2021-05-17] MEDS: TIOTROPIUM BROMIDE 2.5 MCG (SPIRIVA) RESPIMAT INHALER IH SCH (09:07)
[2021-05-17] MEDS: ASPIRIN 81 MG CHEWABLE TABLETS PO SCH (09:07)
[2021-05-17] MEDS: CARVEDILOL 25 MG TABLET (FP) PO SCH ×2 (09:07→21:36)
[2021-05-17] MEDS: PANTOPRAZOLE 20 MG TABLET PO SCH (09:07)
[2021-05-17] MEDS: BUDESONIDE/FORMETEROL FUMARATE 160/4.5 mcg INHALER IH SCH ×2 (09:07→21:37)
[2021-05-17] MEDS: SOLIFENACIN SUCCINATE 5 MG TAB PO SCH (09:08)
[2021-05-17 09:17] LABS: ALBUMIN 2.5 g/dl (3.4-5.0); BLOOD UREA NITROGEN 11.5 mg/dL (7-18)
[2021-05-17 09:18] LABS: MAGNESIUM 2.1 mg/dL (1.8-2.4)
[2021-05-17 09:20] LABS: CREATININE 0.9 mg/dL (0.55-1.3)
[2021-05-17 09:21] LABS: PHOSPHOROUS 2.8 mg/dL (2.5-4.9)
[2021-05-17 09:22] LABS: BILIRUBIN,TOTAL 0.6 mg/dL (0.2-1); TOT PROT 6.3 g/dl (6.4-8.2)
[2021-05-17] MEDS: FUROSEMIDE 40 MG TABLET (FP) PO SCH (12:05)
[2021-05-17] MEDS ORDERED: POTASSIUM CHLORIDE TABS 20 MEQ TABLET.ER (FP) PO ONE (14:30)
[2021-05-17] MEDS: ALBUTEROL SO4 HFA INHALER IH PRN (16:45)
[2021-05-17] MEDS: ALPRAZolam 0.25 MG TABLET PO PRN (17:32)
[2021-05-17] MEDS: ATORVASTATIN CA 20 MG TABLET (FP) PO SCH (21:36)
[2021-05-18] MEDS: MORPHINE SULFATE 2 MG/ML VIAL IVPUSH PRN ×3 (00:14→18:46)
[2021-05-18] MEDS: POLYETHYLENE GLYCOL (HEALTHYLAX) 3350 17 GM PACKET PO PRN (01:30)
[2021-05-18] MEDS: LEVOTHYROXINE NA 25 MCG TABLET (FP) PO SCH (06:15)
[2021-05-18 09:37] LABS: BASO % 0.4 % (0-2.0); EOS % 3.3 % (0-4.5); HEMATOCRIT 28.7 % (32.4-45.2); HEMOGLOBIN 9.9 GM/dL (10.7-15.3); LYMPH % 28.6 % (8-40); MCH 32.5 pg (25.7-33.7); MCHC 34.4 g/dl (32.0-36.0); MEAN CELL VOLUME 94.4 fl (80-96); MEAN PLT VOLUME 7.7 fl (7.5-11.1); MONO % 10.1 % (3.8-10.2); NEUT % 57.6 % (42.8-82.8); PLATELET COUNT 248 10^3/uL (134-434); RBC 3.04 M/mm3 (3.60-5.2); RDW 14.3 % (11.6-15.6); WHITE BLOOD COUNT 5.5 K/mm3 (4.0-10.0)
[2021-05-18 09:49] LABS: ALBUMIN 2.5 g/dl (3.4-5.0); BLOOD UREA NITROGEN 11.8 mg/dL (7-18); CALCIUM 8.2 mg/dL (8.5-10.1)
[2021-05-18 09:50] LABS: MAGNESIUM 1.8 mg/dL (1.8-2.4)
[2021-05-18 09:52] LABS: CREATININE 0.8 mg/dL (0.55-1.3)
[2021-05-18 09:53] LABS: PHOSPHOROUS 3.1 mg/dL (2.5-4.9)
[2021-05-18 09:54] LABS: BILIRUBIN,TOTAL 0.4 mg/dL (0.2-1); TOT PROT 6.2 g/dl (6.4-8.2)
[2021-05-18] MEDS ORDERED: DEXTROSE 5%-WATER - 50 ML IVPB ONE (10:00)
[2021-05-18] MEDS ORDERED: cefTRIAXone SODIUM 1 GM VIAL ONE (10:00)
[2021-05-18] MEDS ORDERED: POLYETHYLENE GLYCOL (HEALTHYLAX) 3350 17 GM PACKET PO SCH (10:00)
[2021-05-18] MEDS: PANTOPRAZOLE 20 MG TABLET PO SCH (10:04)
[2021-05-18] MEDS: LOSARTAN POTASSIUM 50 MG TABLET PO SCH ×2 (10:05→21:50)
[2021-05-18] MEDS: POTASSIUM CHLORIDE ORAL LIQUID 20 MEQ/15 ML PO SCH ×2 (10:05→21:50)
[2021-05-18] MEDS: TIOTROPIUM BROMIDE 2.5 MCG (SPIRIVA) RESPIMAT INHALER IH SCH (10:05)
[2021-05-18] MEDS: BUDESONIDE/FORMETEROL FUMARATE 160/4.5 mcg INHALER IH SCH ×2 (10:05→21:51)
[2021-05-18] MEDS: CARVEDILOL 25 MG TABLET (FP) PO SCH ×2 (10:05→21:50)
[2021-05-18] MEDS: ASPIRIN 81 MG CHEWABLE TABLETS PO SCH (10:05)
[2021-05-18] MEDS: CEFTRIAXONE 1 GM in DEXTROSE 5%-WATER - 50 ML IVPB SCH (10:05)
[2021-05-18] MEDS: FUROSEMIDE 40 MG TABLET (FP) PO SCH (10:05)
[2021-05-18] MEDS: SOLIFENACIN SUCCINATE 5 MG TAB PO SCH (10:05)
[2021-05-18] MEDS ORDERED: MAGNESIUM SULF 50% (8.12 MEQ/2 ML-1 GM VIAL) IVPB ONE (10:10)
[2021-05-18] MEDS: ALPRAZolam 0.25 MG TABLET PO PRN ×2 (10:20→21:50)
[2021-05-18] MEDS: ATORVASTATIN CA 20 MG TABLET (FP) PO SCH (21:50)
[2021-05-19] MEDS: MORPHINE SULFATE 2 MG/ML VIAL IVPUSH PRN ×3 (01:52→17:20)
[2021-05-19] MEDS: LEVOTHYROXINE NA 25 MCG TABLET (FP) PO SCH (06:52)
[2021-05-19 09:40] LABS: BASO % 0.4 % (0-2.0); EOS % 2.8 % (0-4.5); HEMATOCRIT 30.4 % (32.4-45.2); HEMOGLOBIN 10.4 GM/dL (10.7-15.3); LYMPH % 27.5 % (8-40); MCH 32.5 pg (25.7-33.7); MCHC 34.3 g/dl (32.0-36.0); MEAN CELL VOLUME 94.7 fl (80-96); MEAN PLT VOLUME 7.6 fl (7.5-11.1); MONO % 7.2 % (3.8-10.2); NEUT % 62.1 % (42.8-82.8); PLATELET COUNT 289 10^3/uL (134-434); RBC 3.22 M/mm3 (3.60-5.2); RDW 14.4 % (11.6-15.6); WHITE BLOOD COUNT 7.1 K/mm3 (4.0-10.0)
[2021-05-19] MEDS ORDERED: PT OWN MED DRAWER 7, Y5N ONE (10:01)
[2021-05-19] MEDS ORDERED: cefTRIAXone SODIUM 1 GM VIAL ONE (10:02)
[2021-05-19] MEDS ORDERED: DEXTROSE 5%-WATER - 50 ML IVPB ONE (10:02)
[2021-05-19] MEDS: CARVEDILOL 25 MG TABLET (FP) PO SCH (10:25)
[2021-05-19] MEDS: PANTOPRAZOLE 20 MG TABLET PO SCH (10:25)
[2021-05-19] MEDS: FUROSEMIDE 40 MG TABLET (FP) PO SCH (10:25)
[2021-05-19] MEDS: SOLIFENACIN SUCCINATE 5 MG TAB PO SCH (10:25)
[2021-05-19] MEDS: ASPIRIN 81 MG CHEWABLE TABLETS PO SCH (10:25)
[2021-05-19] MEDS: POTASSIUM CHLORIDE ORAL LIQUID 20 MEQ/15 ML PO SCH (10:25)
[2021-05-19] MEDS: LOSARTAN POTASSIUM 50 MG TABLET PO SCH (10:25)
[2021-05-19] MEDS: CEFTRIAXONE 1 GM in DEXTROSE 5%-WATER - 50 ML IVPB SCH (10:26)
[2021-05-19] MEDS: BUDESONIDE/FORMETEROL FUMARATE 160/4.5 mcg INHALER IH SCH (10:27)
[2021-05-19] MEDS: TIOTROPIUM BROMIDE 2.5 MCG (SPIRIVA) RESPIMAT INHALER IH SCH (10:27)
[2021-05-19] MEDS: ALPRAZolam 0.25 MG TABLET PO PRN (10:32)
[2021-05-19] MEDS: POLYETHYLENE GLYCOL (HEALTHYLAX) 3350 17 GM PACKET PO PRN (10:35)
[2021-05-19 11:27] LABS: BLOOD UREA NITROGEN 13.1 mg/dL (7-18); CALCIUM 8.3 mg/dL (8.5-10.1)
[2021-05-19 11:28] LABS: ALBUMIN 2.5 g/dl (3.4-5.0); MAGNESIUM 1.8 mg/dL (1.8-2.4)
[2021-05-19 11:30] LABS: CREATININE 0.9 mg/dL (0.55-1.3)
[2021-05-19 11:31] LABS: PHOSPHOROUS 3.2 mg/dL (2.5-4.9)
[2021-05-19 11:32] LABS: BILIRUBIN,TOTAL 0.4 mg/dL (0.2-1); TOT PROT 6.5 g/dl (6.4-8.2)
[2021-05-19 14:22] VITALS: BP 140/93; PULSE 62; TEMP 98.1
== END 2021-05-19 19:38 | disposition home or self-care (01) | DRG 690 ==
LOC: JER 16:45 → JERBED 18:56 → J6S 05-16 08:28
PROVIDERS: ADMIT Internal Medicine; ATTEND Internal Medicine
DX: N12 Tubulo-interstitial nephritis, not specified as acute or chronic (principal); I50.32 Chronic diastolic (congestive) heart failure; E03.9 Hypothyroidism, unspecified; I11.0 Hypertensive heart disease with heart failure; E78.5 Hyperlipidemia, unspecified; F41.9 Anxiety disorder, unspecified; E66.9 Obesity, unspecified; E87.6 Hypokalemia; R94.31 Abnormal electrocardiogram [ECG] [EKG]; R74.01 Elevation of levels of liver transaminase levels; R73.9 Hyperglycemia, unspecified; Z68.35 Body mass index [BMI] 35.0-35.9, adult; E83.39 Other disorders of phosphorus metabolism; E83.42 Hypomagnesemia; R16.0 Hepatomegaly, not elsewhere classified
CPT/HCPCS: 36415; 71046-TC-FY; 74176-TC; 76705-TC; 80048; 80053; 80074; 81003; 83036; 83735; 84100; 84132; 84133; 84484; 84703; 85025; 85027; 87040; 87086; 87186; 93005; 93010; 99285-25; C9803; J0131; U0003; U0005

== ENCOUNTER 2021-06-22 12:52 | Inpatient (IN) | payer OTHER ==
[2021-06-22] MEDS ORDERED: morphine CARPU-JECT 4 MG/1 ML DISP.SYRIN IVPUSH ONE ×2 (13:39→18:28)
[2021-06-22] MEDS ORDERED: LACTATED RINGERS SOLUTION 1000 ML INFUS.BAG IV ONE (13:40)
[2021-06-22] MEDS ORDERED: ONDANSETRON 4 MG/2 ML VIAL IVPUSH ONE ×2 (13:48→18:28)
[2021-06-22] MEDS ORDERED: ONDANSETRON 4 MG/2 ML VIAL ONE ×2 (14:10→18:59)
[2021-06-22] MEDS ORDERED: morphine SULFATE 4 MG/ML VIAL ONE ×2 (14:10→18:58)
[2021-06-22 14:45] LABS: BASO % 0.5 % (0-2.0); EOS % 2.4 % (0-4.5); HEMATOCRIT 36.4 % (32.4-45.2); HEMOGLOBIN 12.5 GM/dL (10.7-15.3); MCH 32.2 pg (25.7-33.7); MCHC 34.2 g/dl (32.0-36.0); MEAN CELL VOLUME 94.1 fl (80-96); MEAN PLT VOLUME 7.2 fl (7.5-11.1); MONO % 5.6 % (3.8-10.2); NEUT % 71.5 % (42.8-82.8); PLATELET COUNT 272 10^3/uL (134-434); RBC 3.87 M/mm3 (3.60-5.2); RDW 15.8 % (11.6-15.6)
[2021-06-22 15:04] LABS: CHLORIDE 101 mmol/L (98-107); MAGNESIUM 1.5 mg/dL (1.8-2.4); SODIUM 135 mmol/L (136-145)
[2021-06-22 15:07] LABS: ALBUMIN 3.5 g/dl (3.4-5.0); ANION GAP 8 MMOL/L (8-16); BLOOD UREA NITROGEN 15.5 mg/dL (7-18); CALCIUM 9.2 mg/dL (8.5-10.1); CO2 27 mmol/L (21-32); GLUCOSE,RANDOM 108 mg/dL (74-106); LIPASE 215 U/L (73-393)
[2021-06-22 15:10] LABS: BILIRUBIN,TOTAL 0.8 mg/dL (0.2-1); CREATININE 1.1 mg/dL (0.55-1.3); SGOT/AST 62 U/L (15-37); SGPT/ALT 74 U/L (13-61)
[2021-06-22 15:11] LABS: TOT PROT 8.2 g/dl (6.4-8.2)
[2021-06-22 15:13] LABS: ALK PHOS 104 U/L (45-117)
[2021-06-22 15:18] LABS: INR 1.06 (0.83-1.09)
[2021-06-22 15:21] LABS: ACTIVATED PTT 28.2 SECONDS (25.2-36.5)
[2021-06-22 15:22] LABS: EPI CELLS >36 /uL (0-25.1); HYALINE CASTS 7 /uL (0-3.1); URINE APPEARANCE CLOUDY; URINE BACTERIA 1515 /uL (0-1359); URINE BILIRUBIN 1+ (NEGATIVE); URINE COLOR DK YELLOW; URINE GLUCOSE (UA) NEGATIVE (NEGATIVE); URINE KETONE TRACE (NEGATIVE); URINE LEUK ESTERASE 1+ (NEGATIVE); URINE NITRITE NEGATIVE (NEGATIVE); URINE PROTEIN 1+ (NEGATIVE); URINE WBC 126 /uL (0-25.8)
[2021-06-22] MEDS ORDERED: CEFTRIAXONE 1 GM in DEXTROSE 5%-WATER - 100 ML IVPB ONE (15:40)
[2021-06-22] MEDS ORDERED: KETOROLAC TROMETHAMINE 15 MG/ML VIAL IVPUSH ONE (15:41)
[2021-06-22] MEDS ORDERED: KETOROLAC TROMETHAMINE 15 MG/ML VIAL ONE (15:45)
[2021-06-22] MEDS ORDERED: CEFTRIAXONE 1 GM/50 ML BAG ONE (15:45)
[2021-06-22] MEDS ORDERED: MAGNESIUM SULF 50% (8.12 MEQ/2 ML-1 GM VIAL) IVPB ONE (15:57)
[2021-06-22] MEDS ORDERED: POTASSIUM CHLORIDE TABS 20 MEQ TABLET.ER (FP) PO ONE ×2 (15:57→16:04)
[2021-06-22] MEDS ORDERED: MAGNESIUM SULFATE IN WATER 2 GM/50 ML IVPB IVPB ONE (16:04)
[2021-06-22 17:50] LABS: URINE RBC 22.7 /uL (0-23.9)
[2021-06-22] MEDS ORDERED: hydrOXYzine PAMOATE 50 MG CAPSULE (FP) PO ONE (21:00)
[2021-06-22] MEDS ORDERED: hydrOXYzine PAMOATE 50 MG CAPSULE (FP) ONE (21:05)
[2021-06-22] MEDS ORDERED: SODIUM CHLORIDE 1,000 ML IV SCH (23:00)
[2021-06-22] MEDS ORDERED: POTASSIUM CHLORIDE ORAL LIQUID 20 MEQ/15 ML PO ONE (23:08)
[2021-06-22] MEDS ORDERED: KCL 10 MEQ IVPB 10 MEQ/100 ML INFUS.BAG IVPB SCH (23:15)
[2021-06-22] MEDS ORDERED: KCL 10 MEQ IVPB 10 MEQ/100 ML INFUS.BAG IVPB ONE (23:28)
[2021-06-23] MEDS ORDERED: MORPHINE SULFATE 2 MG/ML VIAL ONE ×2 (00:04→07:00)
[2021-06-23] MEDS ORDERED: POTASSIUM CHLORIDE ORAL LIQUID 20 MEQ/15 ML ONE (00:04)
[2021-06-23] MEDS ORDERED: PIPERACILLIN/TAZOB 3.375 GM 3.375 GM/50 ML BAG IVPB ONE ×2 (00:05→06:29)
[2021-06-23] MEDS ORDERED: MAGNESIUM SULFATE IN WATER 2 GM/50 ML IVPB IVPB ONE ×2 (00:05→06:29)
[2021-06-23] MEDS ORDERED: KCL 10 MEQ IVPB 10 MEQ/100 ML INFUS.BAG IVPB ONE (00:05)
[2021-06-23] MEDS: MORPHINE SULFATE 2 MG/ML VIAL IVPUSH PRN ×5 (00:15→20:10)
[2021-06-23] MEDS: PIPERACILLIN/TAZOB 3.375 GM 3.375 GM/50 ML BAG IVPB SCH ×2 (00:47→06:58)
[2021-06-23] MEDS: MAGNESIUM SULF 50% (8.12 MEQ/2 ML-1 GM VIAL) IVPB SCH ×3 (00:47→14:48)
[2021-06-23 08:26] LABS: BASO % 0.6 % (0-2.0); EOS % 3.3 % (0-4.5); HEMATOCRIT 30.8 % (32.4-45.2); HEMOGLOBIN 10.8 GM/dL (10.7-15.3); LYMPH % 26.4 % (8-40); MCH 33.3 pg (25.7-33.7); MEAN CELL VOLUME 95.3 fl (80-96); MEAN PLT VOLUME 7.4 fl (7.5-11.1); MONO % 6.7 % (3.8-10.2); PLATELET COUNT 244 10^3/uL (134-434); RBC 3.23 M/mm3 (3.60-5.2); WHITE BLOOD COUNT 6.6 K/mm3 (4.0-10.0)
[2021-06-23 08:37] LABS: CALCIUM 8.3 mg/dL (8.5-10.1)
[2021-06-23 08:39] LABS: ALBUMIN 2.9 g/dl (3.4-5.0); BLOOD UREA NITROGEN 12.7 mg/dL (7-18); MAGNESIUM 3.6 mg/dL (1.8-2.4)
[2021-06-23 08:41] LABS: CREATININE 1.1 mg/dL (0.55-1.3)
[2021-06-23 08:42] LABS: BILIRUBIN,TOTAL 0.5 mg/dL (0.2-1); TOT PROT 6.7 g/dl (6.4-8.2)
[2021-06-23] MEDS ORDERED: ASPIRIN 81 MG CHEWABLE TABLETS ONE (09:02)
[2021-06-23] MEDS ORDERED: ENOXAPARIN NA (PORCINE) 40 MG/0.4 ML DISP.SYRIN SQ ONE (09:06)
[2021-06-23] MEDS: ENOXAPARIN NA (PORCINE) 40 MG/0.4 ML DISP.SYRIN SQ SCH (11:14)
[2021-06-23] MEDS: CARVEDILOL 12.5 MG TABLET (FP) PO SCH ×2 (11:14→22:05)
[2021-06-23] MEDS: ASPIRIN 81 MG CHEWABLE TABLETS PO SCH (11:14)
[2021-06-23] MEDS: LOSARTAN POTASSIUM 50 MG TABLET PO SCH ×2 (11:14→22:05)
[2021-06-23] MEDS: FUROSEMIDE 40 MG TABLET (FP) PO SCH (11:14)
[2021-06-23] MEDS ORDERED: PIPERACILLIN/TAZOBACTAM 3.375 GM VIAL IVPB ONE (12:18)
[2021-06-23] MEDS ORDERED: DEXTROSE 5%-WATER - 50 ML IVPB ONE ×2 (12:18→14:06)
[2021-06-23] MEDS: PIPERACILLIN/TAZOB 3.375 GM 3.375 GM in DEXTROSE 5%-WATER - 50 ML IVPB SCH ×2 (12:28→12:29)
[2021-06-23] MEDS ORDERED: PIPERACILLIN/TAZOB 3.375 GM 3.375 GM in DEXTROSE 5%-WATER - 3.375 GM/50 ML IVPB IVPB SCH (12:30)
[2021-06-23] MEDS ORDERED: cefTRIAXone SODIUM 1 GM VIAL ONE (14:06)
[2021-06-23] MEDS: CEFTRIAXONE 1 GM in DEXTROSE 5%-WATER - 50 ML IVPB SCH (14:23)
[2021-06-23] MEDS ORDERED: CEFTRIAXONE 1 GM in DEXTROSE 5%-WATER - 50 ML IVPB SCH (15:00)
[2021-06-23] MEDS ORDERED: PT OWN MED DRAWER 7, Y5N ONE (18:53)
[2021-06-23] MEDS ORDERED: MELATONIN 5 MG TABLETS PO ONE (21:28)
[2021-06-23] MEDS: ALBUTEROL SO4 HFA INHALER IH PRN (22:03)
[2021-06-23] MEDS: BUDESONIDE/FORMETEROL FUMARATE 160/4.5 mcg INHALER IH SCH (22:03)
[2021-06-23] MEDS: ATORVASTATIN CA 20 MG TABLET (FP) PO SCH (22:05)
[2021-06-23] MEDS: FAMOTIDINE 20 MG TABLET PO SCH (22:05)
[2021-06-24] MEDS: MORPHINE SULFATE 2 MG/ML VIAL IVPUSH PRN ×5 (02:35→20:05)
[2021-06-24] MEDS ORDERED: INSULIN (LEVEMIR) 100 UNITS/ML UNITS SQ ONE ×2 (05:38→06:57)
[2021-06-24] MEDS ORDERED: PT OWN MED DRAWER 7, Y5N ONE (09:06)
[2021-06-24] MEDS ORDERED: cefTRIAXone SODIUM 1 GM VIAL ONE (09:06)
[2021-06-24] MEDS ORDERED: DEXTROSE 5%-WATER - 50 ML IVPB ONE (09:07)
[2021-06-24] MEDS: LOSARTAN POTASSIUM 50 MG TABLET PO SCH ×2 (09:20→21:33)
[2021-06-24] MEDS: CARVEDILOL 12.5 MG TABLET (FP) PO SCH ×2 (09:20→21:33)
[2021-06-24] MEDS: FAMOTIDINE 20 MG TABLET PO SCH ×2 (09:20→21:33)
[2021-06-24] MEDS: CEFTRIAXONE 1 GM in DEXTROSE 5%-WATER - 50 ML IVPB SCH (09:21)
[2021-06-24] MEDS: ASPIRIN 81 MG CHEWABLE TABLETS PO SCH (09:21)
[2021-06-24] MEDS: ENOXAPARIN NA (PORCINE) 40 MG/0.4 ML DISP.SYRIN SQ SCH (09:21)
[2021-06-24] MEDS: BUDESONIDE/FORMETEROL FUMARATE 160/4.5 mcg INHALER IH SCH ×2 (09:21→21:34)
[2021-06-24] MEDS: FUROSEMIDE 40 MG TABLET (FP) PO SCH (09:21)
[2021-06-24] MEDS: ALBUTEROL SO4 HFA INHALER IH PRN ×2 (09:22→21:34)
[2021-06-24] MEDS ORDERED: LEVOTHYROXINE NA 25 MCG TABLET (FP) PO SCH (10:30)
[2021-06-24] MEDS: TIOTROPIUM BROMIDE 2.5 MCG (SPIRIVA) RESPIMAT INHALER IH SCH (11:45)
[2021-06-24 20:05] VITALS: BMI 35.5
[2021-06-24] MEDS: MELATONIN 1 MG TABLET PO SCH (21:33)
[2021-06-24] MEDS: ATORVASTATIN CA 20 MG TABLET (FP) PO SCH (21:33)
[2021-06-25] MEDS: MORPHINE SULFATE 2 MG/ML VIAL IVPUSH PRN ×5 (00:32→19:58)
[2021-06-25] MEDS: LEVOTHYROXINE NA 25 MCG TABLET (FP) PO SCH (06:54)
[2021-06-25 08:27] LABS: BASO % 0.5 % (0-2.0); EOS % 3.6 % (0-4.5); HEMATOCRIT 30.2 % (32.4-45.2); HEMOGLOBIN 10.5 GM/dL (10.7-15.3); MCH 33.2 pg (25.7-33.7); MCHC 34.6 g/dl (32.0-36.0); MEAN CELL VOLUME 95.9 fl (80-96); MEAN PLT VOLUME 7.8 fl (7.5-11.1); MONO % 8.1 % (3.8-10.2); NEUT % 57.8 % (42.8-82.8); PLATELET COUNT 226 10^3/uL (134-434); RBC 3.15 M/mm3 (3.60-5.2); RDW 15.6 % (11.6-15.6); WHITE BLOOD COUNT 6.5 K/mm3 (4.0-10.0)
[2021-06-25 09:01] LABS: ALBUMIN 2.6 g/dl (3.4-5.0); BLOOD UREA NITROGEN 12.5 mg/dL (7-18); CALCIUM 8.3 mg/dL (8.5-10.1); MAGNESIUM 1.8 mg/dL (1.8-2.4)
[2021-06-25 09:04] LABS: CREATININE 0.8 mg/dL (0.55-1.3)
[2021-06-25 09:05] LABS: BILIRUBIN,TOTAL 0.6 mg/dL (0.2-1)
[2021-06-25 09:06] LABS: TOT PROT 6.5 g/dl (6.4-8.2)
[2021-06-25] MEDS ORDERED: DEXTROSE 5%-WATER - 50 ML IVPB ONE (09:47)
[2021-06-25] MEDS ORDERED: cefTRIAXone SODIUM 1 GM VIAL ONE (09:47)
[2021-06-25] MEDS: CEFTRIAXONE 1 GM in DEXTROSE 5%-WATER - 50 ML IVPB SCH (10:58)
[2021-06-25] MEDS: FUROSEMIDE 40 MG TABLET (FP) PO SCH (10:59)
[2021-06-25] MEDS: ASPIRIN 81 MG CHEWABLE TABLETS PO SCH (10:59)
[2021-06-25] MEDS: FAMOTIDINE 20 MG TABLET PO SCH ×2 (10:59→21:38)
[2021-06-25] MEDS: ENOXAPARIN NA (PORCINE) 40 MG/0.4 ML DISP.SYRIN SQ SCH (10:59)
[2021-06-25] MEDS: LOSARTAN POTASSIUM 50 MG TABLET PO SCH ×2 (10:59→21:38)
[2021-06-25] MEDS: TIOTROPIUM BROMIDE 2.5 MCG (SPIRIVA) RESPIMAT INHALER IH SCH (11:00)
[2021-06-25] MEDS: BUDESONIDE/FORMETEROL FUMARATE 160/4.5 mcg INHALER IH SCH ×2 (11:00→21:39)
[2021-06-25] MEDS: CARVEDILOL 12.5 MG TABLET (FP) PO SCH ×2 (11:00→21:38)
[2021-06-25] MEDS: MICONAZOLE NITRATE 2% VAGINAL CREAM 45 GM TUBE VG SCH ×4 (15:42→22:12)
[2021-06-25 15:53] LABS: URINE APPEARANCE CLEAR; URINE BILIRUBIN NEGATIVE (NEGATIVE); URINE COLOR YELLOW; URINE GLUCOSE (UA) NEGATIVE (NEGATIVE); URINE KETONE NEGATIVE (NEGATIVE); URINE LEUK ESTERASE NEGATIVE (NEGATIVE); URINE NITRITE NEGATIVE (NEGATIVE); URINE PROTEIN NEGATIVE (NEGATIVE); URINE UROBILINOGEN 0.2 mg/dL (0.2-1.0)
[2021-06-25] MEDS ORDERED: TRIMETHOBENZAMIDE HCL 300 MG CAPSULE PO ONE (18:51)
[2021-06-25] MEDS: MELATONIN 1 MG TABLET PO SCH (21:38)
[2021-06-25] MEDS: ATORVASTATIN CA 20 MG TABLET (FP) PO SCH (21:38)
[2021-06-25] MEDS: ALBUTEROL SO4 HFA INHALER IH PRN (21:39)
[2021-06-26] MEDS: MORPHINE SULFATE 2 MG/ML VIAL IVPUSH PRN ×4 (02:01→15:32)
[2021-06-26] MEDS: ALBUTEROL SO4 HFA INHALER IH PRN ×2 (06:10→09:38)
[2021-06-26] MEDS: LEVOTHYROXINE NA 25 MCG TABLET (FP) PO SCH (06:11)
[2021-06-26 09:26] LABS: BASO % 0.5 % (0-2.0); EOS % 2.9 % (0-4.5); HEMATOCRIT 30.8 % (32.4-45.2); HEMOGLOBIN 10.7 GM/dL (10.7-15.3); LYMPH % 27.6 % (8-40); MCH 33.1 pg (25.7-33.7); MCHC 34.6 g/dl (32.0-36.0); MEAN CELL VOLUME 95.7 fl (80-96); MEAN PLT VOLUME 7.8 fl (7.5-11.1); MONO % 8.3 % (3.8-10.2); NEUT % 60.7 % (42.8-82.8); PLATELET COUNT 242 10^3/uL (134-434); RBC 3.22 M/mm3 (3.60-5.2); RDW 15.6 % (11.6-15.6); WHITE BLOOD COUNT 6.5 K/mm3 (4.0-10.0)
[2021-06-26] MEDS ORDERED: cefTRIAXone SODIUM 1 GM VIAL ONE (09:34)
[2021-06-26] MEDS ORDERED: DEXTROSE 5%-WATER - 50 ML IVPB ONE (09:34)
[2021-06-26] MEDS ORDERED: PT OWN MED DRAWER 7, Y5N ONE (09:34)
[2021-06-26] MEDS: FAMOTIDINE 20 MG TABLET PO SCH (09:36)
[2021-06-26] MEDS: ENOXAPARIN NA (PORCINE) 40 MG/0.4 ML DISP.SYRIN SQ SCH (09:36)
[2021-06-26] MEDS: ASPIRIN 81 MG CHEWABLE TABLETS PO SCH (09:36)
[2021-06-26] MEDS: CARVEDILOL 12.5 MG TABLET (FP) PO SCH (09:36)
[2021-06-26] MEDS: LOSARTAN POTASSIUM 50 MG TABLET PO SCH (09:36)
[2021-06-26] MEDS: FUROSEMIDE 40 MG TABLET (FP) PO SCH (09:36)
[2021-06-26] MEDS: CEFTRIAXONE 1 GM in DEXTROSE 5%-WATER - 50 ML IVPB SCH (09:37)
[2021-06-26] MEDS: BUDESONIDE/FORMETEROL FUMARATE 160/4.5 mcg INHALER IH SCH (09:37)
[2021-06-26] MEDS: TIOTROPIUM BROMIDE 2.5 MCG (SPIRIVA) RESPIMAT INHALER IH SCH (09:38)
[2021-06-26 10:18] LABS: ALBUMIN 2.8 g/dl (3.4-5.0); CALCIUM 8.8 mg/dL (8.5-10.1); MAGNESIUM 1.8 mg/dL (1.8-2.4)
[2021-06-26 10:21] LABS: CREATININE 0.8 mg/dL (0.55-1.3)
[2021-06-26 10:23] LABS: BILIRUBIN,TOTAL 0.5 mg/dL (0.2-1); TOT PROT 6.6 g/dl (6.4-8.2)
[2021-06-26] MEDS ORDERED: FUROSEMIDE 40 MG/4 ML INJECTABLE VIAL IVPUSH ONE (11:30)
[2021-06-26] MEDS ORDERED: TRIMETHOBENZAMIDE HCL 300 MG CAPSULE PO PRN (15:57)
[2021-06-26 16:27] VITALS: BP 101/67; PULSE 59; TEMP 98
[2021-06-26] MEDS ORDERED: CARVEDILOL 25 MG TABLET (FP) PO SCH (22:00)
== END 2021-06-26 18:37 | disposition home or self-care (01) | DRG 690 ==
LOC: JER 12:52 → JERBED 19:58 → J8W 06-23 09:36
PROVIDERS: ADMIT Internal Medicine; ATTEND Nurse Practitioner Family
DX: N12 Tubulo-interstitial nephritis, not specified as acute or chronic (principal); I50.32 Chronic diastolic (congestive) heart failure; R10.9 Unspecified abdominal pain; I11.0 Hypertensive heart disease with heart failure; E03.9 Hypothyroidism, unspecified; K76.0 Fatty (change of) liver, not elsewhere classified; J45.40 Moderate persistent asthma, uncomplicated; N76.0 Acute vaginitis; E78.5 Hyperlipidemia, unspecified; E87.6 Hypokalemia; F41.9 Anxiety disorder, unspecified; E83.42 Hypomagnesemia; E66.9 Obesity, unspecified; Z68.36 Body mass index [BMI] 36.0-36.9, adult; K21.9 Gastro-esophageal reflux disease without esophagitis
CPT/HCPCS: 36415; 71045-TC-FY; 74176-TC; 76775-TC; 76856-TC; 80053; 81003; 82550; 82553; 83605; 83690; 83735; 84100; 84484; 85025; 85610; 85730; 87040; 87086; 93005; 93010; 99285-25; C9803; U0003; U0005

== ENCOUNTER 2021-07-13 13:04 | Emergency (ER) | payer OTHER ==
[2021-07-13 13:40] VITALS: TEMP 97.9; BMI 34.3
[2021-07-13] MEDS ORDERED: KETOROLAC TROMETHAMINE 15 MG/ML VIAL IVPUSH ONE (14:36)
[2021-07-13 14:52] LABS: EPI CELLS 12 /uL (0-25.1); HYALINE CASTS 2 /uL (0-3.1); PH,URINE 5.5 (5.0-8.0); URINE APPEARANCE CLEAR; URINE BACTERIA 176 /uL (0-1359); URINE BILIRUBIN 1+ (NEGATIVE); URINE COLOR DK YELLOW; URINE GLUCOSE (UA) NEGATIVE (NEGATIVE); URINE KETONE TRACE (NEGATIVE); URINE LEUK ESTERASE TRACE (NEGATIVE); URINE NITRITE NEGATIVE (NEGATIVE); URINE PROTEIN 1+ (NEGATIVE); URINE RBC 9 /uL (0-23.9); URINE WBC 5 /uL (0-25.8)
[2021-07-13 15:13] LABS: BASO % 0.8 % (0-2.0); EOS % 3.6 % (0-4.5); HEMATOCRIT 36.4 % (32.4-45.2); HEMOGLOBIN 12.6 GM/dL (10.7-15.3); LYMPH % 21.2 % (8-40); MCH 32.4 pg (25.7-33.7); MCHC 34.6 g/dl (32.0-36.0); MEAN CELL VOLUME 93.4 fl (80-96); MEAN PLT VOLUME 7.3 fl (7.5-11.1); MONO % 5.8 % (3.8-10.2); NEUT % 68.6 % (42.8-82.8); PLATELET COUNT 267 10^3/uL (134-434); RDW 15.5 % (11.6-15.6); WHITE BLOOD COUNT 8.7 K/mm3 (4.0-10.0)
[2021-07-13] MEDS ORDERED: KETOROLAC TROMETHAMINE 15 MG/ML VIAL ONE (15:29)
[2021-07-13 15:33] LABS: CHLORIDE 102 mmol/L (98-107); SODIUM 138 mmol/L (136-145)
[2021-07-13 15:36] LABS: ALBUMIN 3.5 g/dl (3.4-5.0); ANION GAP 12 MMOL/L (8-16); BLOOD UREA NITROGEN 14.2 mg/dL (7-18); CALCIUM 8.7 mg/dL (8.5-10.1); CO2 24 mmol/L (21-32); GLUCOSE,RANDOM 90 mg/dL (74-106); LIPASE 162 U/L (73-393); MAGNESIUM 1.2 mg/dL (1.8-2.4)
[2021-07-13 15:39] LABS: SGOT/AST 58 U/L (15-37); SGPT/ALT 68 U/L (13-61)
[2021-07-13 15:40] LABS: BILIRUBIN,TOTAL 0.6 mg/dL (0.2-1); TOT PROT 8.1 g/dl (6.4-8.2)
[2021-07-13 15:42] LABS: ALK PHOS 103 U/L (45-117)
[2021-07-13 15:44] LABS: N-TERMINAL BNP 90.6 pg/ml (5-125)
[2021-07-13] MEDS ORDERED: POTASSIUM CHLORIDE ORAL LIQUID 20 MEQ/15 ML PO ONE (16:49)
[2021-07-13] MEDS ORDERED: MAGNESIUM SULF 50% (8.12 MEQ/2 ML-1 GM VIAL) IVPB ONE (16:50)
[2021-07-13] MEDS ORDERED: MAGNESIUM SULFATE IN WATER 2 GM/50 ML IVPB IVPB ONE (17:24)
[2021-07-13] MEDS ORDERED: POTASSIUM CHLORIDE ORAL LIQUID 20 MEQ/15 ML ONE (17:27)
[2021-07-13] MEDS ORDERED: morphine CARPU-JECT 2 MG/1 ML DISP.SYRIN IVPUSH ONE (17:38)
[2021-07-13] MEDS ORDERED: morphine SULFATE 4 MG/ML VIAL ONE (18:00)
[2021-07-13] MEDS ORDERED: SULFAMETHOXAZOLE/TRIMETHOPRIM 800MG/160MG D.S. TABLET PO ONE (18:08)
[2021-07-13] MEDS ORDERED: LIDOCAINE 5% TOPICAL PATCH TP ONE (18:08)
[2021-07-13] MEDS ORDERED: SULFAMETHOXAZOLE/TRIMETHOPRIM 800MG/160MG D.S. TABLET ONE (19:07)
[2021-07-13] MEDS ORDERED: LIDOCAINE 5% TOPICAL PATCH ONE (19:08)
[2021-07-13 19:21] VITALS: BP 162/95; PULSE 67
[2021-07-13] MEDS ORDERED: LIDOCAINE PATCH REMOVAL MC ONE (22:00)
== END 2021-07-13 19:41 | disposition home or self-care (01) ==
LOC: JER 13:04
PROC: 3E033GC Introduction of Other Therapeutic Substance into Peripheral Vein, Percutaneous Approach (ICD-10-PCS; principal; 2021-07-13)
DX: R10.84 Generalized abdominal pain (principal)
CPT/HCPCS: 36415; 71046-TC-FY; 74177-TC; 76705-TC; 80053; 81003; 82550; 83690; 83735; 83880; 84484; 85025; 87086; 93005; 93010; 99285-25; C9803; Q9967; U0003; U0005

== ENCOUNTER 2021-08-14 16:35 | Observation (INO) | payer OTHER ==
[2021-08-14] MEDS ORDERED: ASPIRIN 81 MG CHEWABLE TABLETS PO ONE (17:24)
[2021-08-14] MEDS ORDERED: ASPIRIN 81 MG CHEWABLE TABLETS ONE (17:40)
[2021-08-14] MEDS ORDERED: ACETAMINOPHEN 325 MG TABLET (FP) PO ONE (17:47)
[2021-08-14 18:09] LABS: EOS % 1.3 % (0-4.5); HEMATOCRIT 34.1 % (32.4-45.2); HEMOGLOBIN 12.1 GM/dL (10.7-15.3); LYMPH % 18.6 % (8-40); MCH 32.8 pg (25.7-33.7); MCHC 35.5 g/dl (32.0-36.0); MEAN CELL VOLUME 92.3 fl (80-96); MEAN PLT VOLUME 7.1 fl (7.5-11.1); NEUT % 73.1 % (42.8-82.8); PLATELET COUNT 239 10^3/uL (134-434); RDW 15.1 % (11.6-15.6); WHITE BLOOD COUNT 8.9 K/mm3 (4.0-10.0)
[2021-08-14 18:27] LABS: CHLORIDE 106 mmol/L (98-107); SODIUM 140 mmol/L (136-145)
[2021-08-14 18:29] LABS: CALCIUM 9.5 mg/dL (8.5-10.1)
[2021-08-14 18:30] LABS: ALBUMIN 3.6 g/dl (3.4-5.0); ANION GAP 10 MMOL/L (8-16); BLOOD UREA NITROGEN 11.2 mg/dL (7-18); CO2 23 mmol/L (21-32); GLUCOSE,RANDOM 104 mg/dL (74-106); MAGNESIUM 1.7 mg/dL (1.8-2.4)
[2021-08-14 18:33] LABS: CREATININE 0.9 mg/dL (0.55-1.3); SGOT/AST 76 U/L (15-37); SGPT/ALT 108 U/L (13-61)
[2021-08-14 18:35] LABS: BILIRUBIN,TOTAL 0.4 mg/dL (0.2-1); TOT PROT 7.9 g/dl (6.4-8.2)
[2021-08-14 18:36] LABS: ALK PHOS 102 U/L (45-117)
[2021-08-14 18:39] LABS: N-TERMINAL BNP 33.9 pg/ml (5-125)
[2021-08-14] MEDS ORDERED: POTASSIUM CHLORIDE TABS 20 MEQ TABLET.ER (FP) PO ONE ×2 (20:20→20:42)
[2021-08-14] MEDS ORDERED: FUROSEMIDE 40 MG/4 ML INJECTABLE VIAL IVPUSH ONE (20:20)
[2021-08-14] MEDS ORDERED: MAGNESIUM 1GM/D5W 100ML - 100 ML IVPB IVPB ONE (20:39)
[2021-08-14] MEDS ORDERED: FUROSEMIDE 40 MG/4 ML INJECTABLE VIAL ONE (20:43)
[2021-08-14] MEDS ORDERED: ACETAMINOPHEN 1000 MG/100 ML VIAL IVPB ONE (20:55)
[2021-08-14] MEDS ORDERED: MAGNESIUM 1GM/D5W - 1 GM/100 ML IVPB IVPB ONE (20:59)
[2021-08-14] MEDS ORDERED: ACETAMINOPHEN INJECTION 100 ML IVPB ONE (20:59)
[2021-08-14] MEDS ORDERED: ATORVASTATIN CA 20 MG TABLET (FP) ONE (21:00)
[2021-08-14] MEDS ORDERED: CARVEDILOL 12.5 MG TABLET (FP) ONE (21:00)
[2021-08-14] MEDS: ATORVASTATIN CA 20 MG TABLET (FP) PO SCH (21:16)
[2021-08-14] MEDS: BUDESONIDE/FORMETEROL FUMARATE 160/4.5 mcg INHALER IH SCH (21:16)
[2021-08-14] MEDS: CARVEDILOL 25 MG TABLET (FP) PO SCH (21:16)
[2021-08-15] MEDS ORDERED: MELATONIN 5 MG TABLETS PO ONE ×2 (02:13→22:12)
[2021-08-15] MEDS ORDERED: ACETAMINOPHEN 500 MG TABLET (FP) PO SCH (02:45)
[2021-08-15] MEDS ORDERED: ACETAMINOPHEN 1000 MG/100 ML VIAL IVPB ONE (03:17)
[2021-08-15] MEDS ORDERED: FAMOTIDINE 20 MG TABLET PO ONE (03:17)
[2021-08-15 03:24] LABS: PH,URINE 5.5 (5.0-8.0); URINE APPEARANCE CLEAR; URINE BILIRUBIN NEGATIVE (NEGATIVE); URINE COLOR YELLOW; URINE GLUCOSE (UA) NEGATIVE (NEGATIVE); URINE KETONE NEGATIVE (NEGATIVE); URINE LEUK ESTERASE NEGATIVE (NEGATIVE); URINE NITRITE NEGATIVE (NEGATIVE); URINE PROTEIN NEGATIVE (NEGATIVE); URINE UROBILINOGEN 0.2 mg/dL (0.2-1.0)
[2021-08-15 03:26] VITALS: BMI 34.2
[2021-08-15 07:36] LABS: HEMATOCRIT 32.7 % (32.4-45.2); HEMOGLOBIN 11.4 GM/dL (10.7-15.3); MCH 32.9 pg (25.7-33.7); MCHC 34.8 g/dl (32.0-36.0); MEAN CELL VOLUME 94.3 fl (80-96); MEAN PLT VOLUME 7.8 fl (7.5-11.1); PLATELET COUNT 211 10^3/uL (134-434); RBC 3.47 M/mm3 (3.60-5.2); RDW 15.1 % (11.6-15.6); WHITE BLOOD COUNT 6.1 K/mm3 (4.0-10.0)
[2021-08-15 07:55] LABS: ALBUMIN 3.2 g/dl (3.4-5.0); BLOOD UREA NITROGEN 14.1 mg/dL (7-18); MAGNESIUM 1.9 mg/dL (1.8-2.4)
[2021-08-15 07:58] LABS: CREATININE 1.2 mg/dL (0.55-1.3); PHOSPHOROUS 3.2 mg/dL (2.5-4.9)
[2021-08-15 07:59] LABS: BILIRUBIN,TOTAL 0.9 mg/dL (0.2-1); TOT PROT 7.2 g/dl (6.4-8.2)
[2021-08-15] MEDS ORDERED: ENOXAPARIN NA (PORCINE) 40 MG/0.4 ML DISP.SYRIN SQ SCH (10:00)
[2021-08-15] MEDS ORDERED: ENOXAPARIN NA (PORCINE) 100 MG/1 ML DISP.SYRIN SQ SCH (10:00)
[2021-08-15] MEDS: CARVEDILOL 25 MG TABLET (FP) PO SCH ×2 (10:02→22:02)
[2021-08-15] MEDS: ENOXAPARIN NA (PORCINE) 40 MG/0.4 ML DISP.SYRIN SQ SCH (10:02)
[2021-08-15] MEDS: PANTOPRAZOLE 40 MG TABLET PO SCH (10:02)
[2021-08-15] MEDS: ASPIRIN 81 MG CHEWABLE TABLETS PO SCH (10:02)
[2021-08-15] MEDS: BUDESONIDE/FORMETEROL FUMARATE 160/4.5 mcg INHALER IH SCH ×2 (10:03→22:02)
[2021-08-15] MEDS: ACETAMINOPHEN 1000 MG/100 ML VIAL IVPB PRN (17:12)
[2021-08-15] MEDS: ATORVASTATIN CA 20 MG TABLET (FP) PO SCH (22:02)
[2021-08-15] MEDS: LOSARTAN POTASSIUM 50 MG TABLET PO SCH (22:02)
[2021-08-16] MEDS: ACETAMINOPHEN 1000 MG/100 ML VIAL IVPB PRN ×2 (01:56→09:42)
[2021-08-16] MEDS ORDERED: LEVOTHYROXINE NA 25 MCG TABLET (FP) PO SCH (07:00)
[2021-08-16 07:25] LABS: HEMATOCRIT 32.7 % (32.4-45.2); HEMOGLOBIN 11.4 GM/dL (10.7-15.3); MCHC 34.7 g/dl (32.0-36.0); MEAN PLT VOLUME 8.2 fl (7.5-11.1); PLATELET COUNT 209 10^3/uL (134-434); RBC 3.44 M/mm3 (3.60-5.2); RDW 15.2 % (11.6-15.6); WHITE BLOOD COUNT 5.1 K/mm3 (4.0-10.0)
[2021-08-16 07:56] LABS: BLOOD UREA NITROGEN 16.6 mg/dL (7-18)
[2021-08-16 07:57] LABS: CALCIUM 9.1 mg/dL (8.5-10.1)
[2021-08-16 08:01] LABS: BILIRUBIN,TOTAL 0.8 mg/dL (0.2-1)
[2021-08-16 08:03] LABS: TOT PROT 6.8 g/dl (6.4-8.2)
[2021-08-16] MEDS ORDERED: POTASSIUM CHLORIDE TABS 20 MEQ TABLET.ER (FP) PO ONE (08:23)
[2021-08-16] MEDS: ENOXAPARIN NA (PORCINE) 40 MG/0.4 ML DISP.SYRIN SQ SCH (09:25)
[2021-08-16] MEDS: ASPIRIN 81 MG CHEWABLE TABLETS PO SCH (09:25)
[2021-08-16] MEDS: CARVEDILOL 25 MG TABLET (FP) PO SCH (09:25)
[2021-08-16] MEDS: LOSARTAN POTASSIUM 50 MG TABLET PO SCH (09:25)
[2021-08-16] MEDS: PANTOPRAZOLE 40 MG TABLET PO SCH (09:25)
[2021-08-16] MEDS: BUDESONIDE/FORMETEROL FUMARATE 160/4.5 mcg INHALER IH SCH (09:26)
[2021-08-16] MEDS ORDERED: FUROSEMIDE 40 MG TABLET (FP) PO SCH (10:00)
[2021-08-16 12:14] VITALS: BP 100/63; PULSE 62; TEMP 98.2
== END 2021-08-16 16:53 | disposition home or self-care (01) ==
LOC: JER 16:35 → JERBED 18:44 → J4W 08-15 01:56
PROVIDERS: ATTEND Internal Medicine
PROC: 3E033NZ Introduction of Analgesics, Hypnotics, Sedatives into Peripheral Vein, Percutaneous Approach (ICD-10-PCS; principal; 2021-08-14)
PROC: 3E023GC Introduction of Other Therapeutic Substance into Muscle, Percutaneous Approach (ICD-10-PCS; 2021-08-14)
PROC: 3E033GC Introduction of Other Therapeutic Substance into Peripheral Vein, Percutaneous Approach (ICD-10-PCS; 2021-08-14)
DX: I11.0 Hypertensive heart disease with heart failure (principal); I50.32 Chronic diastolic (congestive) heart failure; E78.5 Hyperlipidemia, unspecified; K75.81 Nonalcoholic steatohepatitis (NASH); K21.9 Gastro-esophageal reflux disease without esophagitis; J44.9 Chronic obstructive pulmonary disease, unspecified; E83.42 Hypomagnesemia; Z29.9 Encounter for prophylactic measures, unspecified; R10.9 Unspecified abdominal pain; Z87.891 Personal history of nicotine dependence; F41.9 Anxiety disorder, unspecified
CPT/HCPCS: 36415; 71045-TC-FY; 71275-TC; 76705-TC; 80053; 81003; 83735; 83880; 84100; 84443; 84484; 85025; 85027; 93005; 93010; 93970-TC; 96372; 96374; 96375; 96376; 99285-25; C9803; G0378; J0131; U0003; U0005

== ENCOUNTER 2021-10-25 15:41 | Inpatient (IN) | payer OTHER ==
[2021-10-25] MEDS ORDERED: SODIUM CHLORIDE 0.9% 500 ML INFUS.BAG IV ONE (17:32)
[2021-10-25] MEDS ORDERED: morphine CARPU-JECT 4 MG/1 ML DISP.SYRIN IVPUSH ONE (17:32)
[2021-10-25] MEDS ORDERED: ONDANSETRON 4 MG/2 ML VIAL IVPUSH ONE (17:33)
[2021-10-25] MEDS ORDERED: ONDANSETRON 4 MG/2 ML VIAL ONE (17:41)
[2021-10-25] MEDS ORDERED: morphine SULFATE 4 MG/ML VIAL ONE ×2 (17:41→20:57)
[2021-10-25 18:08] LABS: BASO % 0.5 % (0-2.0); EOS % 2.7 % (0-4.5); HEMATOCRIT 38.6 % (32.4-45.2); HEMOGLOBIN 12.8 GM/dL (10.7-15.3); LYMPH % 25.4 % (8-40); MCH 31.7 pg (25.7-33.7); MEAN CELL VOLUME 95.9 fl (80-96); MEAN PLT VOLUME 8.1 fl (7.5-11.1); MONO % 7.8 % (3.8-10.2); NEUT % 63.6 % (42.8-82.8); PLATELET COUNT 242 10^3/uL (134-434); RBC 4.03 M/mm3 (3.60-5.2); RDW 15.1 % (11.6-15.6); WHITE BLOOD COUNT 7.2 K/mm3 (4.0-10.0)
[2021-10-25 18:21] LABS: EPI CELLS >36 /uL (0-25.1); HYALINE CASTS 2 /uL (0-3.1); PH,URINE 5.5 (5.0-8.0); URINE APPEARANCE CLEAR; URINE BACTERIA 156 /uL (0-1359); URINE BILIRUBIN 1+ (NEGATIVE); URINE COLOR ORANGE; URINE GLUCOSE (UA) NEGATIVE (NEGATIVE); URINE KETONE TRACE (NEGATIVE); URINE LEUK ESTERASE TRACE (NEGATIVE); URINE NITRITE NEGATIVE (NEGATIVE); URINE PROTEIN 1+ (NEGATIVE); URINE RBC 8 /uL (0-23.9); URINE WBC 9 /uL (0-25.8)
[2021-10-25 18:30] LABS: CHLORIDE 99 mmol/L (98-107); SODIUM 140 mmol/L (136-145)
[2021-10-25 18:32] LABS: CALCIUM 9.4 mg/dL (8.5-10.1)
[2021-10-25 18:34] LABS: ALBUMIN 3.6 g/dl (3.4-5.0); BLOOD UREA NITROGEN 10.7 mg/dL (7-18); CO2 31 mmol/L (21-32); GLUCOSE,RANDOM 100 mg/dL (74-106)
[2021-10-25 18:36] LABS: SGOT/AST 159 U/L (15-37); SGPT/ALT 174 U/L (13-61)
[2021-10-25 18:37] LABS: BILIRUBIN,TOTAL 0.8 mg/dL (0.2-1); TOT PROT 7.8 g/dl (6.4-8.2)
[2021-10-25 18:40] LABS: ALK PHOS 136 U/L (45-117)
[2021-10-25 19:09] LABS: ANION GAP 10 MMOL/L (8-16)
[2021-10-25] MEDS ORDERED: POTASSIUM CHLORIDE ORAL LIQUID 20 MEQ/15 ML PO ONE (19:22)
[2021-10-25] MEDS ORDERED: POTASSIUM CHLORIDE ORAL LIQUID 20 MEQ/15 ML ONE (20:00)
[2021-10-25] MEDS ORDERED: KCL 10 MEQ IVPB 10 MEQ/100 ML INFUS.BAG IVPB ONE ×2 (20:00→22:21)
[2021-10-25] MEDS: KCL 10 MEQ IVPB 10 MEQ/100 ML INFUS.BAG IVPB SCH ×2 (20:18→22:30)
[2021-10-25] MEDS ORDERED: morphine CARPU-JECT 2 MG/1 ML DISP.SYRIN IVPUSH ONE (20:50)
[2021-10-26] MEDS ORDERED: morphine CARPU-JECT 2 MG/1 ML DISP.SYRIN IVPUSH ONE (00:57)
[2021-10-26] MEDS ORDERED: morphine SULFATE 4 MG/ML VIAL ONE ×2 (01:19→05:01)
[2021-10-26 02:03] LABS: CHLORIDE 101 mmol/L (98-107); SODIUM 139 mmol/L (136-145)
[2021-10-26 02:06] LABS: ALBUMIN 3.1 g/dl (3.4-5.0); ANION GAP 10 MMOL/L (8-16); BLOOD UREA NITROGEN 10.6 mg/dL (7-18); CALCIUM 8.2 mg/dL (8.5-10.1); CO2 28 mmol/L (21-32); GLUCOSE,RANDOM 108 mg/dL (74-106)
[2021-10-26 02:10] LABS: CREATININE 0.9 mg/dL (0.55-1.3); SGOT/AST 101 U/L (15-37); SGPT/ALT 132 U/L (13-61)
[2021-10-26 02:11] LABS: BILIRUBIN,TOTAL 0.8 mg/dL (0.2-1); TOT PROT 6.8 g/dl (6.4-8.2)
[2021-10-26 02:12] LABS: ALK PHOS 110 U/L (45-117)
[2021-10-26 02:25] LABS: LIPASE 126 U/L (73-393)
[2021-10-26 07:49] LABS: MAGNESIUM 1.2 mg/dL (1.8-2.4)
[2021-10-26] MEDS ORDERED: MAGNESIUM SULF 50% (8.12 MEQ/2 ML-1 GM VIAL) IVPB ONE ×3 (07:49→22:15)
[2021-10-26] MEDS ORDERED: POTASSIUM CHLORIDE TABS 20 MEQ TABLET.ER (FP) PO ONE ×2 (07:54→10:15)
[2021-10-26] MEDS: PIPERACILLIN/TAZOB 3.375 GM 3.375 GM in DEXTROSE 5%-WATER - 50 ML IVPB SCH ×3 (10:04→18:58)
[2021-10-26] MEDS ORDERED: PANTOPRAZOLE SODIUM 40 MG/100 ML BAG IVPB ONE ×2 (10:15→10:39)
[2021-10-26] MEDS ORDERED: KCL 10 MEQ IVPB 30 MEQ/300 ML INFUS.BAG IVPB ONE (10:16)
[2021-10-26] MEDS ORDERED: MAGNESIUM 1GM/D5W - 1 GM/100 ML IVPB IVPB ONE (10:16)
[2021-10-26] MEDS ORDERED: PIPERACILLIN/TAZOB 3.375 GM 3.375 GM/50 ML BAG IVPB ONE ×2 (10:16→10:39)
[2021-10-26] MEDS: PANTOPRAZOLE SODIUM 40 MG VIAL IVPUSH SCH (10:18)
[2021-10-26] MEDS: KCL 10 MEQ IVPB 10 MEQ/100 ML INFUS.BAG IVPB SCH ×3 (10:18→19:02)
[2021-10-26] MEDS ORDERED: ALBUTEROL SO4 HFA INHALER IH PRN (11:20)
[2021-10-26 14:01] LABS: HEMATOCRIT 34.3 % (32.4-45.2); HEMOGLOBIN 11.4 GM/dL (10.7-15.3); MCH 32.3 pg (25.7-33.7); MCHC 33.3 g/dl (32.0-36.0); MEAN CELL VOLUME 96.8 fl (80-96); PLATELET COUNT 205 10^3/uL (134-434); RBC 3.54 M/mm3 (3.60-5.2); RDW 15.2 % (11.6-15.6); WHITE BLOOD COUNT 5.1 K/mm3 (4.0-10.0)
[2021-10-26] MEDS ORDERED: ONDANSETRON 4 MG/2 ML VIAL IVPUSH PRN (14:23)
[2021-10-26] MEDS ORDERED: morphine CARPU-JECT 2 MG/1 ML DISP.SYRIN IVPUSH PRN (14:23)
[2021-10-26 14:46] LABS: ALBUMIN 3.2 g/dl (3.4-5.0); CALCIUM 8.5 mg/dL (8.5-10.1); MAGNESIUM 1.5 mg/dL (1.8-2.4)
[2021-10-26 14:47] LABS: BLOOD UREA NITROGEN 9.1 mg/dL (7-18)
[2021-10-26 14:49] LABS: CREATININE 0.9 mg/dL (0.55-1.3); PHOSPHOROUS 3.2 mg/dL (2.5-4.9)
[2021-10-26 14:51] LABS: BILIRUBIN,TOTAL 0.9 mg/dL (0.2-1)
[2021-10-26 18:30] LABS: COCAINE, UR NEGATIVE (NEGATIVE); METHADONE, UR NEGATIVE (NEGATIVE); URINE BARBITURATES NEGATIVE (NEGATIVE)
[2021-10-26 18:31] LABS: PHENCYCLIDINE,URINE NEGATIVE (NEGATIVE); URINE AMPHETAMINES NEGATIVE (NEGATIVE)
[2021-10-26 18:42] LABS: OPIATES, URI POSITIVE (NEGATIVE); URINE BENZODIAZEPINES NEGATIVE (NEGATIVE)
[2021-10-26] MEDS ORDERED: PIPERACILLIN/TAZOBACTAM 3.375 GM VIAL IVPB ONE (18:54)
[2021-10-26] MEDS ORDERED: DEXTROSE 5%-WATER - 50 ML IVPB ONE (18:55)
[2021-10-26] MEDS: SODIUM CHLORIDE 1,000 ML IV SCH (19:03)
[2021-10-26] MEDS: CARVEDILOL 25 MG TABLET (FP) PO SCH (22:25)
[2021-10-27] MEDS ORDERED: PIPERACILLIN/TAZOBACTAM 3.375 GM VIAL IVPB ONE ×2 (01:03→08:57)
[2021-10-27] MEDS ORDERED: DEXTROSE 5%-WATER - 50 ML IVPB ONE ×2 (01:03→08:57)
[2021-10-27] MEDS ORDERED: PIPERACILLIN/TAZOB 3.375 GM 3.375 GM in DEXTROSE 5%-WATER - 50 ML IVPB SCH (02:00)
[2021-10-27] MEDS: PIPERACILLIN/TAZOB 3.375 GM 3.375 GM in DEXTROSE 5%-WATER - 50 ML IVPB SCH ×2 (02:21→09:03)
[2021-10-27] MEDS: CARVEDILOL 25 MG TABLET (FP) PO SCH (09:02)
[2021-10-27] MEDS: SODIUM CHLORIDE 1,000 ML IV SCH (09:02)
[2021-10-27] MEDS: ENOXAPARIN NA (PORCINE) 40 MG/0.4 ML DISP.SYRIN SQ SCH ×2 (09:02→10:40)
[2021-10-27] MEDS: PANTOPRAZOLE SODIUM 40 MG VIAL IVPUSH SCH (09:02)
[2021-10-27 09:42] LABS: HEMATOCRIT 32.8 % (32.4-45.2); HEMOGLOBIN 10.8 GM/dL (10.7-15.3); MCH 32.2 pg (25.7-33.7); MCHC 33.1 g/dl (32.0-36.0); MEAN CELL VOLUME 97.5 fl (80-96); MEAN PLT VOLUME 7.8 fl (7.5-11.1); PLATELET COUNT 183 10^3/uL (134-434); RBC 3.36 M/mm3 (3.60-5.2); RDW 14.9 % (11.6-15.6)
[2021-10-27 09:52] LABS: INR 1.09 (0.83-1.09); PROTHROMBIN TIME (PATIENT) 12.6 SEC (9.7-13.0)
[2021-10-27] MEDS ORDERED: SUCRALFATE 1 GM/10 ML UNIT DOSE CUPS PO SCH (10:00)
[2021-10-27 10:06] LABS: CALCIUM 8.7 mg/dL (8.5-10.1)
[2021-10-27 10:08] LABS: BLOOD UREA NITROGEN 9.8 mg/dL (7-18)
[2021-10-27 10:13] LABS: CREATININE 0.8 mg/dL (0.55-1.3)
[2021-10-27 10:14] LABS: TOT PROT 6.7 g/dl (6.4-8.2)
[2021-10-27] MEDS ORDERED: ACETAMINOPHEN 500 MG TABLET (FP) PO PRN (11:48)
[2021-10-27 16:15] VITALS: BMI 31.5
[2021-10-27 16:18] VITALS: BP 138/87; PULSE 69; TEMP 98.3
[2021-10-28] MEDS ORDERED: PANTOPRAZOLE 20 MG TABLET PO SCH (10:00)
== END 2021-10-27 16:20 | disposition home or self-care (01) | DRG 392 ==
LOC: JER 15:41 → JERBED 10-26 04:19 → J8W 10-26 15:27
PROVIDERS: ADMIT Internal Medicine
DX: R10.11 Right upper quadrant pain (principal); I50.32 Chronic diastolic (congestive) heart failure; J45.909 Unspecified asthma, uncomplicated; K75.81 Nonalcoholic steatohepatitis (NASH); I25.10 Atherosclerotic heart disease of native coronary artery without angina pectoris; I11.0 Hypertensive heart disease with heart failure; R11.2 Nausea with vomiting, unspecified; R79.89 Other specified abnormal findings of blood chemistry; R74.01 Elevation of levels of liver transaminase levels; E87.6 Hypokalemia; E66.9 Obesity, unspecified; Z68.31 Body mass index [BMI] 31.0-31.9, adult
CPT/HCPCS: 36415; 74177-TC; 74181-TC; 76705-TC; 76775-TC; 76856-TC; 80053; 80307; 81003; 82550; 83690; 83735; 84100; 84484; 85025; 85027; 85610; 86704; 86705; 86708; 86803; 87086; 87517; 93005; 93010; 97116-GP; 97161-GP; 99285-25; C9803; U0003; U0005

== ENCOUNTER 2022-01-01 04:30 | Day surgery (SDC) | payer OTHER ==
[2021-12-28 13:49] VITALS: BMI 33.1
[2022-01-01] MEDS ORDERED: DEXAMETHASONE SOD PHOSPHATE 4 MG/1 ML VIAL ONE (07:22)
[2022-01-01] MEDS ORDERED: BUPIVACAINE HCL/PF 0.25% (2.5MG/ML) 10 ML VIAL ONE (07:22)
[2022-01-01] MEDS ORDERED: BETAMET ACET/BETAMET NA PH 30 MG/5 ML VIAL ONE (07:23)
[2022-01-01] MEDS ORDERED: BUPIVACAINE HCL/PF 0.5% (5MG/ML) 10 ML VIAL ONE (07:23)
[2022-01-01] MEDS ORDERED: LIDOCAINE HCL/PF 1% SDV 5ML VIAL ONE (07:23)
[2022-01-01] MEDS ORDERED: KETAMINE HCL 200 MG/20 ML VIAL ONE (08:27)
[2022-01-01] MEDS ORDERED: MIDAZOLAM HCL 2 MG/2 ML SINGLE DOSE VIAL ONE (08:27)
[2022-01-01] MEDS ORDERED: PROPOFOL 20 ML ONE (09:00)
[2022-01-01] MEDS ORDERED: DEXAMETHASONE SOD PHOSPHATE 10 MG/1 ML VIAL ONE (09:04)
[2022-01-01] MEDS ORDERED: BUPIVACAINE HCL/PF 0.25% (2.5MG/ML) 10 ML VIAL IJ ONE (09:09)
[2022-01-01] MEDS ORDERED: LIDOCAINE HCL 1% PRESERVATIVE FREE - 30ML VIAL IJ ONE (09:09)
[2022-01-01] MEDS ORDERED: IOHEXOL 180 MG/1 ML ML IJ ONE (09:09)
[2022-01-01] MEDS ORDERED: DEXAMETHASONE SOD PHOSPHATE 10 MG/1 ML VIAL IVPUSH ONE (09:09)
[2022-01-01] MEDS ORDERED: ONDANSETRON 4 MG/2 ML VIAL ONE (09:53)
[2022-01-01] MEDS ORDERED: ONDANSETRON 4 MG/2 ML VIAL IVPUSH ONE ×2 (10:11→10:12)
[2022-01-01 10:59] VITALS: BP 150/90; PULSE 72; TEMP 98.2
== END 2022-01-01 11:22 | disposition home or self-care (01) ==
LOC: JASU-SURG 04:30
PROVIDERS: ATTEND Physical Medicine & Rehabilitation
PROC: 3E0R33Z Introduction of Anti-inflammatory into Spinal Canal, Percutaneous Approach (ICD-10-PCS; 2022-01-01)
PROC: B01BYZZ Fluoroscopy of Spinal Cord using Other Contrast (ICD-10-PCS; 2022-01-01)
PROC: 3E0R3BZ Introduction of Anesthetic Agent into Spinal Canal, Percutaneous Approach (ICD-10-PCS; principal; 2022-01-01 08:30)
DX: M54.16 Radiculopathy, lumbar region (principal); I11.0 Hypertensive heart disease with heart failure; I50.9 Heart failure, unspecified
CPT/HCPCS: 76000-TC-FY; J1100

== ENCOUNTER 2022-04-02 12:14 | Emergency (ER) | payer OTHER ==
[2022-04-02 13:04] VITALS: BP 163/105; PULSE 88; TEMP 98.5; BMI 32.5
[2022-04-02] MEDS ORDERED: SODIUM CHLORIDE 1,000 ML IV STA (14:48)
[2022-04-02] MEDS ORDERED: ACETAMINOPHEN 1000 MG/100 ML BAG IVPB ONE (14:49)
[2022-04-02] MEDS ORDERED: ACETAMINOPHEN INJECTION 100 ML IVPB ONE (14:55)
[2022-04-02] MEDS ORDERED: morphine SULFATE 4 MG/ML VIAL IVPUSH ONE ×2 (15:03→17:52)
[2022-04-02] MEDS ORDERED: morphine SULFATE 4 MG/ML VIAL ONE (15:19)
[2022-04-02 15:53] LABS: BASO % 0.3 % (0-2.0); EOS % 1.6 % (0-4.5); HEMATOCRIT 39.1 % (32.4-45.2); HEMOGLOBIN 13.4 GM/dL (10.7-15.3); MCH 34.4 pg (25.7-33.7); MCHC 34.3 g/dl (32.0-36.0); MEAN CELL VOLUME 100.4 fl (80-96); MEAN PLT VOLUME 7.8 fl (7.5-11.1); MONO % 6.5 % (3.8-10.2); NEUT % 71.6 % (42.8-82.8); PLATELET COUNT 271 10^3/uL (134-434); RBC 3.89 M/mm3 (3.60-5.2); RDW 14.4 % (11.6-15.6); WHITE BLOOD COUNT 10.3 K/mm3 (4.0-10.0)
[2022-04-02 16:13] LABS: ALBUMIN 3.6 g/dl (3.4-5.0); BLOOD UREA NITROGEN 12.4 mg/dL (7-18)
[2022-04-02 16:16] LABS: CREATININE 0.9 mg/dL (0.55-1.3)
[2022-04-02 16:18] LABS: BILIRUBIN,TOTAL 0.9 mg/dL (0.2-1); TOT PROT 8.2 g/dl (6.4-8.2)
[2022-04-02 16:38] LABS: EPI CELLS 16 /uL (0-25.1); HYALINE CASTS 3 /uL (0-3.1); URINE APPEARANCE CLOUDY; URINE BACTERIA 3129 /uL (0-1359); URINE BILIRUBIN 1+ (NEGATIVE); URINE COLOR ORANGE; URINE GLUCOSE (UA) NEGATIVE (NEGATIVE); URINE KETONE TRACE (NEGATIVE); URINE LEUK ESTERASE 2+ (NEGATIVE); URINE NITRITE POSITIVE (NEGATIVE); URINE PROTEIN 2+ (NEGATIVE); URINE RBC 62 /uL (0-23.9); URINE WBC 3312 /uL (0-25.8)
[2022-04-02] MEDS ORDERED: CEFTRIAXONE 2 GM/100 ML BAG IVPB ONE (18:43)
[2022-04-02] MEDS ORDERED: CEFTRIAXONE 2 GM in DEXTROSE 5%-WATER 100 ML IVPB ONE (18:45)
== END 2022-04-02 19:37 | disposition home or self-care (01) ==
LOC: JER 12:14
PROC: 3E033GC Introduction of Other Therapeutic Substance into Peripheral Vein, Percutaneous Approach (ICD-10-PCS; principal; 2022-04-02)
DX: N39.0 Urinary tract infection, site not specified (principal); B96.1 Klebsiella pneumoniae [K. pneumoniae] as the cause of diseases classified elsewhere
CPT/HCPCS: 36415; 74176-TC; 80053; 81003; 85025; 87086; 87186; 96361; 96365; 96375; 96376; 99285-25

== ENCOUNTER 2022-04-12 13:34 | Emergency (ER) | payer OTHER ==
[2022-04-12 13:39] VITALS: BP 134/89; PULSE 99; TEMP 97; BMI 32.1
[2022-04-12] MEDS ORDERED: morphine CARPU-JECT 4 MG/1 ML DISP.SYRIN IVPUSH ONE ×2 (17:08→20:17)
[2022-04-12] MEDS ORDERED: SODIUM CHLORIDE 0.9% 1000 ML INFUS.BAG IV ONE (17:08)
[2022-04-12] MEDS ORDERED: morphine SULFATE 4 MG/ML VIAL ONE ×2 (17:48→20:17)
[2022-04-12 17:54] LABS: HEMATOCRIT 37.4 % (32.4-45.2); MCH 34.7 pg (25.7-33.7); MCHC 34.9 g/dl (32.0-36.0); MEAN CELL VOLUME 99.3 fl (80-96); MEAN PLT VOLUME 7.9 fl (7.5-11.1); PLATELET COUNT 286 10^3/uL (134-434); RBC 3.76 M/mm3 (3.60-5.2); RDW 14.1 % (11.6-15.6); WHITE BLOOD COUNT 9.2 K/mm3 (4.0-10.0)
[2022-04-12 18:00] LABS: EPI CELLS >36 /uL (0-25.1); HYALINE CASTS 1 /uL (0-3.1); PH,URINE 5.5 (5.0-8.0); URINE APPEARANCE CLEAR; URINE BACTERIA 397 /uL (0-1359); URINE BILIRUBIN 1+ (NEGATIVE); URINE COLOR DK YELLOW; URINE GLUCOSE (UA) NEGATIVE (NEGATIVE); URINE KETONE TRACE (NEGATIVE); URINE LEUK ESTERASE NEGATIVE (NEGATIVE); URINE NITRITE NEGATIVE (NEGATIVE); URINE PROTEIN 1+ (NEGATIVE); URINE RBC 14 /uL (0-23.9); URINE WBC 7 /uL (0-25.8)
[2022-04-12 18:06] LABS: CALCIUM 9.7 mg/dL (8.5-10.1)
[2022-04-12 18:07] LABS: ALBUMIN 3.3 g/dl (3.4-5.0); BLOOD UREA NITROGEN 16.2 mg/dL (7-18)
[2022-04-12 18:10] LABS: CREATININE 0.8 mg/dL (0.55-1.3)
[2022-04-12 18:12] LABS: BILIRUBIN,TOTAL 1.1 mg/dL (0.2-1); TOT PROT 8.3 g/dl (6.4-8.2)
== END 2022-04-12 22:09 ==
LOC: JER 13:34
PROC: 3E033NZ Introduction of Analgesics, Hypnotics, Sedatives into Peripheral Vein, Percutaneous Approach (ICD-10-PCS; principal; 2022-04-12)
DX: M54.41 Lumbago with sciatica, right side (principal); N39.0 Urinary tract infection, site not specified
CPT/HCPCS: 36415; 74178-TC; 80053; 81003; 84703; 85027; 87086; 99285-25; Q9967

== ENCOUNTER 2022-05-24 10:58 | Emergency (ER) | payer OTHER ==
[2022-05-24 11:25] VITALS: BP 161/105; PULSE 85; RESP 18; TEMP 97.8; BMI 35.2
== END 2022-05-24 12:55 | disposition home or self-care (01) ==
LOC: JERFT 10:58
DX: M25.561 Pain in right knee (principal)
CPT/HCPCS: 73562-TC-RT-FY; 99283-25

== ENCOUNTER 2022-06-04 04:24 | Day surgery (SDC) | payer OTHER ==
[~2022-06-04 04:24] MED LIST changes: -BUPIVACAINE HCL/PF (5 MG/ML) 30 ML VIAL IJ ONE; +BUPIVACAINE HCL/PF 0.25% (2.5MG/ML) 10 ML VIAL IJ ONE; +DEXAMETHASONE SOD PHOSPHATE 10 MG/1 ML VIAL IVPUSH ONE; +IOHEXOL 180 MG/1 ML ML IJ ONE; +LIDOCAINE HCL 1% PRESERVATIVE FREE - 30ML VIAL IJ ONE
[2022-06-04] MEDS ORDERED: BUPIVACAINE HCL/PF 0.25% (2.5MG/ML) 10 ML VIAL ONE (07:50)
[2022-06-04] MEDS ORDERED: DEXAMETHASONE SOD PHOSPHATE 10 MG/1 ML VIAL ONE (07:51)
[2022-06-04] MEDS ORDERED: LIDOCAINE HCL/PF 1% SDV 5ML VIAL ONE (07:51)
[2022-06-04] MEDS ORDERED: BUPIVACAINE HCL/PF 0.5% (5MG/ML) 10 ML VIAL ONE (07:51)
[2022-06-04 10:02] VITALS: BMI 35.2
[2022-06-04] MEDS ORDERED: LIDOCAINE HCL 1% PRESERVATIVE FREE - 30ML VIAL IJ ONE ×2 (10:13→11:13)
[2022-06-04] MEDS ORDERED: MIDAZOLAM HCL 2 MG/2 ML SINGLE DOSE VIAL ONE ×2 (11:03→11:09)
[2022-06-04] MEDS ORDERED: IOHEXOL 180 MG/1 ML ML IJ ONE (11:15)
[2022-06-04] MEDS ORDERED: DEXAMETHASONE SOD PHOSPHATE 10 MG/1 ML VIAL IVPUSH ONE (11:16)
[2022-06-04] MEDS ORDERED: BUPIVACAINE HCL/PF 0.25% (2.5MG/ML) 10 ML VIAL IJ ONE (11:16)
[2022-06-04 11:38] VITALS: BP 130/89; PULSE 77; RESP 16; TEMP 97.3
== END 2022-06-04 12:40 | disposition home or self-care (01) ==
LOC: JASU-SURG 04:24
PROVIDERS: ATTEND Physical Medicine & Rehabilitation
PROC: 3E0R33Z Introduction of Anti-inflammatory into Spinal Canal, Percutaneous Approach (ICD-10-PCS; 2022-06-04)
PROC: 3E0R3BZ Introduction of Anesthetic Agent into Spinal Canal, Percutaneous Approach (ICD-10-PCS; principal; 2022-06-04 12:00)
DX: M54.16 Radiculopathy, lumbar region (principal); M54.50 Low back pain, unspecified
CPT/HCPCS: 76000-TC-FY; J1100

== ENCOUNTER 2022-08-27 05:32 | Day surgery (SDC) | payer OTHER ==
[2022-08-24 14:48] VITALS: BMI 35.2
[2022-08-27] MEDS ORDERED: BUPIVACAINE HCL/PF 0.25% (2.5MG/ML) 10 ML VIAL ONE (08:04)
[2022-08-27] MEDS ORDERED: LIDOCAINE HCL/PF 1% SDV 5ML VIAL ONE (08:05)
[2022-08-27] MEDS ORDERED: DEXAMETHASONE SOD PHOSPHATE 10 MG/1 ML VIAL ONE (08:05)
[2022-08-27] MEDS ORDERED: MIDAZOLAM HCL 2 MG/2 ML SINGLE DOSE VIAL ONE (08:48)
[2022-08-27] MEDS ORDERED: FENTANYL CITRATE/PF 50 MCG/ML VIAL ONE ×3 (08:48→09:30)
[2022-08-27] MEDS ORDERED: PROPOFOL 20 ML ONE (08:49)
[2022-08-27] MEDS ORDERED: LIDOCAINE HCL 1% PRESERVATIVE FREE - 30ML VIAL IJ ONE (09:28)
[2022-08-27] MEDS ORDERED: IOHEXOL 180 MG/1 ML ML IJ ONE (09:31)
[2022-08-27] MEDS ORDERED: DEXAMETHASONE SOD PHOSPHATE 10 MG/1 ML VIAL IVPUSH ONE (09:33)
[2022-08-27] MEDS ORDERED: BUPIVACAINE HCL/PF 0.25% (2.5MG/ML) 10 ML VIAL IJ ONE (09:33)
[2022-08-27] MEDS ORDERED: ONDANSETRON 4 MG/2 ML VIAL ONE (09:37)
[2022-08-27 10:53] VITALS: BP 142/82; PULSE 74; RESP 19; TEMP 98.7
== END 2022-08-27 11:00 | disposition home or self-care (01) ==
LOC: JASU-SURG 05:32
PROVIDERS: ATTEND Physical Medicine & Rehabilitation
PROC: 3E0R33Z Introduction of Anti-inflammatory into Spinal Canal, Percutaneous Approach (ICD-10-PCS; 2022-08-27)
PROC: B01BZZZ Fluoroscopy of Spinal Cord (ICD-10-PCS; 2022-08-27)
PROC: 3E0R3BZ Introduction of Anesthetic Agent into Spinal Canal, Percutaneous Approach (ICD-10-PCS; principal; 2022-08-27 09:00)
DX: M54.16 Radiculopathy, lumbar region (principal)
CPT/HCPCS: 76000-TC-FY; J1100

== ENCOUNTER 2022-09-04 15:17 | Emergency (ER) | payer OTHER ==
[2022-09-04 15:45] VITALS: BP 154/97; PULSE 81; RESP 18; TEMP 98.1; BMI 31.1
[2022-09-04 18:03] LABS: BASO % 0.3 % (0-2.0); HEMATOCRIT 38.5 % (32.4-45.2); HEMOGLOBIN 12.9 GM/dL (10.7-15.3); LYMPH % 20.9 % (8-40); MCH 31.2 pg (25.7-33.7); MCHC 33.6 g/dl (32.0-36.0); MEAN CELL VOLUME 92.9 fl (80-96); MEAN PLT VOLUME 7.9 fl (7.5-11.1); MONO % 5.3 % (3.8-10.2); NEUT % 71.5 % (42.8-82.8); PLATELET COUNT 293 10^3/uL (134-434); RBC 4.15 M/mm3 (3.60-5.2); RDW 14.3 % (11.6-15.6); WHITE BLOOD COUNT 10.4 K/mm3 (4.0-10.0)
[2022-09-04] MEDS ORDERED: traMADol HCL 50 MG TABLET PO ONE (18:18)
[2022-09-04] MEDS ORDERED: traMADol HCL 50 MG TABLET ONE (18:23)
[2022-09-04 18:31] LABS: ALBUMIN 3.6 g/dl (3.4-5.0); CALCIUM 9.5 mg/dL (8.5-10.1)
[2022-09-04 18:32] LABS: BLOOD UREA NITROGEN 18.1 mg/dL (7-18)
[2022-09-04 18:35] LABS: CREATININE 0.9 mg/dL (0.55-1.3)
[2022-09-04 18:36] LABS: BILIRUBIN,TOTAL 0.7 mg/dL (0.2-1); TOT PROT 7.8 g/dl (6.4-8.2)
[2022-09-04 18:44] LABS: URINE APPEARANCE CLEAR; URINE BILIRUBIN NEGATIVE (NEGATIVE); URINE COLOR YELLOW; URINE GLUCOSE (UA) NEGATIVE (NEGATIVE); URINE KETONE NEGATIVE (NEGATIVE); URINE LEUK ESTERASE NEGATIVE (NEGATIVE); URINE NITRITE NEGATIVE (NEGATIVE); URINE PROTEIN NEGATIVE (NEGATIVE); URINE UROBILINOGEN 0.2 mg/dL (0.2-1.0)
[2022-09-04] MEDS ORDERED: ONDANSETRON 4 MG/2 ML VIAL IVPUSH ONE (19:56)
[2022-09-04] MEDS ORDERED: SODIUM CHLORIDE 0.9% 500 ML INFUS.BAG IV ONE (19:56)
[2022-09-04] MEDS ORDERED: ONDANSETRON 4 MG/2 ML VIAL ONE (19:59)
== END 2022-09-04 21:11 | disposition home or self-care (01) ==
LOC: JER 15:17
PROC: 3E033GC Introduction of Other Therapeutic Substance into Peripheral Vein, Percutaneous Approach (ICD-10-PCS; principal; 2022-09-04)
DX: M54.89 Other dorsalgia (principal)
CPT/HCPCS: 36415; 74176-TC; 80053; 81003; 85025; 87086; 99285-25

== ENCOUNTER 2022-10-09 17:59 | Inpatient (IN) | payer OTHER ==
[2022-10-09 18:46] VITALS: BMI 30.6
[2022-10-10] MEDS ORDERED: ALBUTEROL SO4 2 MG TABLET PO ONE (00:54)
[2022-10-10 00:57] LABS: INR 1.08 (0.83-1.09); PROTHROMBIN TIME (PATIENT) 12.4 SEC (9.7-13.0)
[2022-10-10 01:00] LABS: ACTIVATED PTT 32.8 SECONDS (25.2-36.5)
[2022-10-10] MEDS ORDERED: ALBUTEROL SO4 HFA INHALER IH ONE (01:00)
[2022-10-10 01:11] LABS: CALCIUM 9.6 mg/dL (8.5-10.1)
[2022-10-10 01:12] LABS: ALBUMIN 3.6 g/dl (3.4-5.0); BLOOD UREA NITROGEN 19.8 mg/dL (7-18); MAGNESIUM 1.5 mg/dL (1.8-2.4)
[2022-10-10 01:16] LABS: BILIRUBIN,TOTAL 1.3 mg/dL (0.2-1); TOT PROT 8.6 g/dl (6.4-8.2)
[2022-10-10 01:43] LABS: BASO % 0.5 % (0-2.0); EOS % 0.3 % (0-4.5); HEMATOCRIT 41.4 % (32.4-45.2); HEMOGLOBIN 13.8 GM/dL (10.7-15.3); LYMPH % 22.8 % (8-40); MCH 30.4 pg (25.7-33.7); MCHC 33.4 g/dl (32.0-36.0); MEAN CELL VOLUME 90.9 fl (80-96); MONO % 12.4 % (3.8-10.2); PLATELET COUNT 244 10^3/uL (134-434); RBC 4.56 M/mm3 (3.60-5.2); RDW 14.2 % (11.6-15.6); WHITE BLOOD COUNT 7.5 K/mm3 (4.0-10.0)
[2022-10-10 05:49] LABS: EPI CELLS 29 /uL (0-25.1); HYALINE CASTS 4 /uL (0-3.1); PH,URINE 5.5 (5.0-8.0); URINE APPEARANCE CLEAR; URINE BACTERIA 123 /uL (0-1359); URINE BILIRUBIN NEGATIVE (NEGATIVE); URINE COLOR YELLOW; URINE GLUCOSE (UA) NEGATIVE (NEGATIVE); URINE KETONE NEGATIVE (NEGATIVE); URINE LEUK ESTERASE NEGATIVE (NEGATIVE); URINE NITRITE NEGATIVE (NEGATIVE); URINE PROTEIN 2+ (NEGATIVE); URINE RBC 25 /uL (0-23.9); URINE WBC 15 /uL (0-25.8)
[2022-10-10 05:56] LABS: PHENCYCLIDINE,URINE NEGATIVE (NEGATIVE); URINE BARBITURATES NEGATIVE (NEGATIVE)
[2022-10-10 05:57] LABS: COCAINE, UR NEGATIVE (NEGATIVE); OPIATES, URI NEGATIVE (NEGATIVE)
[2022-10-10 06:01] LABS: METHADONE, UR NEGATIVE (NEGATIVE); URINE AMPHETAMINES NEGATIVE (NEGATIVE); URINE BENZODIAZEPINES NEGATIVE (NEGATIVE)
[2022-10-10] MEDS ORDERED: MAGNESIUM SULF 50% (8.12 MEQ/2 ML-1 GM VIAL) IVPB ONE (06:03)
[2022-10-10] MEDS ORDERED: MAGNESIUM SULFATE IN WATER 2 GM/50 ML IVPB IVPB ONE (06:36)
[2022-10-10 08:13] LABS: CHLORIDE 96 mmol/L (98-107); SODIUM 133 mmol/L (136-145)
[2022-10-10 08:18] LABS: BASO % 0.6 % (0-2.0); EOS % 0.8 % (0-4.5); HEMATOCRIT 38.4 % (32.4-45.2); LYMPH % 24.7 % (8-40); MCH 30.7 pg (25.7-33.7); MCHC 33.8 g/dl (32.0-36.0); MEAN CELL VOLUME 90.8 fl (80-96); MEAN PLT VOLUME 7.8 fl (7.5-11.1); MONO % 11.7 % (3.8-10.2); NEUT % 62.2 % (42.8-82.8); PLATELET COUNT 217 10^3/uL (134-434); RBC 4.23 M/mm3 (3.60-5.2); RDW 14.1 % (11.6-15.6); WHITE BLOOD COUNT 6.3 K/mm3 (4.0-10.0)
[2022-10-10 08:22] LABS: ALBUMIN 3.5 g/dl (3.4-5.0); BLOOD UREA NITROGEN 21.9 mg/dL (7-18); CO2 23 mmol/L (21-32); GLUCOSE,RANDOM 99 mg/dL (74-106)
[2022-10-10 08:23] LABS: MAGNESIUM 1.4 mg/dL (1.8-2.4)
[2022-10-10 08:25] LABS: CREATININE 1.1 mg/dL (0.55-1.3); SGPT/ALT 49 U/L (13-61)
[2022-10-10 08:27] LABS: ALK PHOS 125 U/L (45-117); BILIRUBIN,TOTAL 1.5 mg/dL (0.2-1); SGOT/AST 57 U/L (15-37); TOT PROT 7.8 g/dl (6.4-8.2)
[2022-10-10 08:34] LABS: ANION GAP 14 MMOL/L (8-16)
[2022-10-10] MEDS ORDERED: MAGNESIUM OXIDE 400 MG TABLET (FP) PO ONE (08:47)
[2022-10-10] MEDS: ENOXAPARIN NA (PORCINE) 40 MG/0.4 ML DISP.SYRIN SQ SCH (09:09)
[2022-10-10] MEDS: POTASSIUM CHLORIDE ORAL LIQUID 20 MEQ/15 ML PO SCH ×2 (09:09→12:56)
[2022-10-10] MEDS ORDERED: oxyCODONE HCL 5 MG TABLET ONE ×2 (09:20→15:14)
[2022-10-10] MEDS: oxyCODONE HCL 5 MG TABLET PO PRN ×2 (09:30→15:19)
[2022-10-10] MEDS ORDERED: POTASSIUM CHLORIDE ORAL LIQUID 20 MEQ/15 ML ONE (12:53)
[2022-10-10] MEDS: INSULIN SLIDING SCALE (NOVOLOG) 1 VIAL SQ SCH (15:53)
[2022-10-10] MEDS ORDERED: INSULIN SLIDING SCALE (NOVOLOG) 1 VIAL SQ SCH (16:30)
[2022-10-10] MEDS ORDERED: ATORVASTATIN CA 40 MG TABLET (FP) ONE (22:09)
[2022-10-10] MEDS ORDERED: CARVEDILOL 25 MG TABLET (FP) ONE (22:09)
[2022-10-10] MEDS: CARVEDILOL 25 MG TABLET (FP) PO SCH (22:22)
[2022-10-10] MEDS: ATORVASTATIN CA 40 MG TABLET (FP) PO SCH (22:22)
[2022-10-11] MEDS ORDERED: oxyCODONE HCL 5 MG TABLET ONE ×3 (00:12→14:39)
[2022-10-11] MEDS: oxyCODONE HCL 5 MG TABLET PO PRN ×4 (00:16→22:00)
[2022-10-11 08:05] LABS: CALCIUM 9.4 mg/dL (8.5-10.1)
[2022-10-11 08:06] LABS: BLOOD UREA NITROGEN 25.2 mg/dL (7-18); MAGNESIUM 2.2 mg/dL (1.8-2.4)
[2022-10-11 08:09] LABS: PHOSPHOROUS 3.5 mg/dL (2.5-4.9)
[2022-10-11] MEDS: INSULIN SLIDING SCALE (NOVOLOG) 1 VIAL SQ SCH ×3 (09:17→16:28)
[2022-10-11] MEDS ORDERED: FUROSEMIDE 20 MG TABLET (FP) PO SCH (10:00)
[2022-10-11] MEDS: CARVEDILOL 25 MG TABLET (FP) PO SCH ×2 (10:30→22:00)
[2022-10-11] MEDS: ENOXAPARIN NA (PORCINE) 40 MG/0.4 ML DISP.SYRIN SQ SCH (10:30)
[2022-10-11] MEDS ORDERED: CARVEDILOL 25 MG TABLET (FP) ONE (10:33)
[2022-10-11] MEDS ORDERED: ENOXAPARIN NA (PORCINE) 40 MG/0.4 ML DISP.SYRIN SQ ONE (10:33)
[2022-10-11] MEDS ORDERED: POLYETHYLENE GLYCOL (HEALTHYLAX) 3350 17 GM PACKET PO PRN (15:54)
[2022-10-11] MEDS ORDERED: guaiFENesin 200 MG/10 ML 10 ML UNIT-DOSE CUPS ONE (16:12)
[2022-10-11] MEDS: guaiFENesin 200 MG/10 ML 10 ML UNIT-DOSE CUPS PO PRN ×2 (16:13→19:54)
[2022-10-11] MEDS: ATORVASTATIN CA 40 MG TABLET (FP) PO SCH (22:00)
[2022-10-12] MEDS: ACETAMINOPHEN 325 MG TABLET (FP) PO PRN (05:00)
[2022-10-12] MEDS: guaiFENesin 200 MG/10 ML 10 ML UNIT-DOSE CUPS PO PRN ×2 (05:00→11:36)
[2022-10-12] MEDS: INSULIN SLIDING SCALE (NOVOLOG) 1 VIAL SQ SCH ×3 (06:16→17:31)
[2022-10-12 08:02] LABS: BASO % 0.3 % (0-2.0); EOS % 4.4 % (0-4.5); HEMATOCRIT 35.1 % (32.4-45.2); LYMPH % 30.4 % (8-40); MCH 31.2 pg (25.7-33.7); MEAN CELL VOLUME 91.6 fl (80-96); MEAN PLT VOLUME 7.9 fl (7.5-11.1); MONO % 9.1 % (3.8-10.2); NEUT % 55.8 % (42.8-82.8); PLATELET COUNT 176 10^3/uL (134-434); RBC 3.83 M/mm3 (3.60-5.2); RDW 13.9 % (11.6-15.6); WHITE BLOOD COUNT 5.7 K/mm3 (4.0-10.0)
[2022-10-12 08:21] LABS: BLOOD UREA NITROGEN 24.1 mg/dL (7-18); MAGNESIUM 1.8 mg/dL (1.8-2.4)
[2022-10-12 08:25] LABS: PHOSPHOROUS 4.1 mg/dL (2.5-4.9)
[2022-10-12] MEDS: CARVEDILOL 25 MG TABLET (FP) PO SCH (09:20)
[2022-10-12] MEDS: oxyCODONE HCL 5 MG TABLET PO PRN ×3 (09:20→22:24)
[2022-10-12] MEDS: ENOXAPARIN NA (PORCINE) 40 MG/0.4 ML DISP.SYRIN SQ SCH (09:20)
[2022-10-12] MEDS ORDERED: POTASSIUM CHLORIDE TABS 20 MEQ TABLET.ER (FP) PO ONE (10:30)
[2022-10-12] MEDS ORDERED: rOPINIRole HCL 0.5 MG TABLET PO PRN (10:35)
[2022-10-12] MEDS ORDERED: ALBUTEROL SO4 0.083% IH SOL 2.5 MG/3 ML VIAL.NEB. NEB PRN (10:42)
[2022-10-12] MEDS ORDERED: PANTOPRAZOLE 20 MG TABLET PO SCH (11:15)
[2022-10-12] MEDS: LEVOTHYROXINE NA 25 MCG TABLET (FP) PO SCH (11:32)
[2022-10-12] MEDS: FUROSEMIDE 20 MG TABLET (FP) PO SCH (11:32)
[2022-10-12] MEDS: PANTOPRAZOLE 40 MG TABLET PO SCH (11:32)
[2022-10-12] MEDS: ASPIRIN 81 MG CHEWABLE TABLETS PO SCH (11:33)
[2022-10-12] MEDS: POTASSIUM CHLORIDE TABS 20 MEQ TABLET.ER (FP) PO SCH ×2 (11:33→22:24)
[2022-10-12] MEDS: TIOTROPIUM BROMIDE 2.5 MCG (SPIRIVA) RESPIMAT INHALER IH SCH (11:33)
[2022-10-12] MEDS: BUDESONIDE/FORMETEROL FUMARATE 160/4.5 mcg INHALER IH SCH ×2 (11:34→22:23)
[2022-10-12] MEDS ORDERED: CARVEDILOL 12.5 MG TABLET (FP) PO SCH (15:26)
[2022-10-12] MEDS: ALBUTEROL SO4 0.083% IH SOL 2.5 MG/3 ML VIAL.NEB. NEB SCH ×2 (15:59→20:35)
[2022-10-12] MEDS ORDERED: ATORVASTATIN CA 20 MG TABLET (FP) PO SCH (22:00)
[2022-10-13] MEDS: ACETAMINOPHEN 325 MG TABLET (FP) PO PRN (02:30)
[2022-10-13] MEDS: LEVOTHYROXINE NA 25 MCG TABLET (FP) PO SCH (07:11)
[2022-10-13] MEDS: INSULIN SLIDING SCALE (NOVOLOG) 1 VIAL SQ SCH ×3 (07:11→16:50)
[2022-10-13 08:31] VITALS: RESP 20
[2022-10-13 08:36] LABS: CALCIUM 8.8 mg/dL (8.5-10.1)
[2022-10-13 08:37] LABS: BLOOD UREA NITROGEN 23.5 mg/dL (7-18); MAGNESIUM 1.7 mg/dL (1.8-2.4)
[2022-10-13 08:40] LABS: PHOSPHOROUS 3.3 mg/dL (2.5-4.9)
[2022-10-13] MEDS: ALBUTEROL SO4 0.083% IH SOL 2.5 MG/3 ML VIAL.NEB. NEB SCH ×3 (08:58→16:27)
[2022-10-13] MEDS: ENOXAPARIN NA (PORCINE) 40 MG/0.4 ML DISP.SYRIN SQ SCH (09:39)
[2022-10-13] MEDS: FUROSEMIDE 20 MG TABLET (FP) PO SCH (09:40)
[2022-10-13] MEDS: PANTOPRAZOLE 40 MG TABLET PO SCH (09:40)
[2022-10-13] MEDS: ASPIRIN 81 MG CHEWABLE TABLETS PO SCH (09:40)
[2022-10-13] MEDS: POTASSIUM CHLORIDE TABS 20 MEQ TABLET.ER (FP) PO SCH (09:40)
[2022-10-13] MEDS: TIOTROPIUM BROMIDE 2.5 MCG (SPIRIVA) RESPIMAT INHALER IH SCH (09:47)
[2022-10-13] MEDS: BUDESONIDE/FORMETEROL FUMARATE 160/4.5 mcg INHALER IH SCH (09:47)
[2022-10-13] MEDS ORDERED: CHOLECALCIFEROL (VIT D3) 400 UNIT (10 MCG) TABLET PO SCH (10:00)
[2022-10-13] MEDS ORDERED: SOLIFENACIN SUCCINATE 5 MG TAB PO SCH (10:00)
[2022-10-13] MEDS ORDERED: CYANOCOBALAMIN 1,000 MCG TABLET (FP) PO SCH (10:00)
[2022-10-13] MEDS: oxyCODONE HCL 5 MG TABLET PO PRN (10:54)
[2022-10-13] MEDS ORDERED: MAGNESIUM OXIDE 400 MG TABLET (FP) PO ONE (11:06)
[2022-10-13 16:10] VITALS: BP 100/62; PULSE 68; TEMP 98.5
== END 2022-10-13 18:00 | disposition home or self-care (01) | DRG 312 ==
LOC: JER 17:59 → JERBED 10-10 02:22 → J4W 10-11 18:58 → OBSVTOIN 10-12 19:33
PROVIDERS: ADMIT Internal Medicine; ATTEND Internal Medicine
DX: I95.1 Orthostatic hypotension (principal); I50.32 Chronic diastolic (congestive) heart failure; K76.0 Fatty (change of) liver, not elsewhere classified; E78.5 Hyperlipidemia, unspecified; E03.9 Hypothyroidism, unspecified; E66.9 Obesity, unspecified; Z68.30 Body mass index [BMI] 30.0-30.9, adult; J45.909 Unspecified asthma, uncomplicated; I11.0 Hypertensive heart disease with heart failure; F41.9 Anxiety disorder, unspecified; G43.909 Migraine, unspecified, not intractable, without status migrainosus; E83.42 Hypomagnesemia; E87.6 Hypokalemia; R19.7 Diarrhea, unspecified
CPT/HCPCS: 0241U-QW; 36415; 70450-TC; 71045-TC-FY; 71101-TC-RT-FY; 71260-TC; 72125-TC; 72170-TC-FY; 72192-TC; 73560-TC-RT-FY; 80048; 80053; 80307; 81003; 82962; 83735; 84100; 84436; 84484; 85025; 85610; 85730; 87086; 93005; 93010; 94640; 97116-GP; 97162-GP; 99285-25; G0378; Q9967

== ENCOUNTER 2022-12-03 04:11 | Day surgery (SDC) | payer OTHER ==
[2022-11-29 11:51] VITALS: BMI 30.9
[~2022-12-03 04:11] MED LIST changes: -LIDOCAINE HCL 1% PRESERVATIVE FREE - 30ML VIAL IJ ONE; +LIDOCAINE HCL 1%, 10 MG/ML (20ML VIAL) NR ONE
[2022-12-03] MEDS ORDERED: LIDOCAINE HCL/PF 1% SDV 5ML VIAL ONE (07:15)
[2022-12-03] MEDS ORDERED: BUPIVACAINE HCL/PF 0.75% 10 ML VIAL ONE (07:15)
[2022-12-03] MEDS ORDERED: DEXAMETHASONE SOD PHOSPHATE 10 MG/1 ML VIAL ONE (07:15)
[2022-12-03 07:46] VITALS: RESP 20
[2022-12-03] MEDS ORDERED: LIDOCAINE HCL 1%, 10 MG/ML (20ML VIAL) ONE (09:05)
[2022-12-03] MEDS ORDERED: BUPIVACAINE HCL/PF 0.25% (2.5MG/ML) 10 ML VIAL ONE (09:05)
[2022-12-03] MEDS ORDERED: MIDAZOLAM HCL 2 MG/2 ML SINGLE DOSE VIAL ONE (09:44)
[2022-12-03 11:23] VITALS: BP 138/90; PULSE 82; TEMP 97.7
== END 2022-12-03 11:35 | disposition home or self-care (01) ==
LOC: JASU-SURG 04:11
PROVIDERS: ATTEND Physical Medicine & Rehabilitation
PROC: 3E0R3BZ Introduction of Anesthetic Agent into Spinal Canal, Percutaneous Approach (ICD-10-PCS; 2022-12-03)
PROC: 3E0R33Z Introduction of Anti-inflammatory into Spinal Canal, Percutaneous Approach (ICD-10-PCS; principal; 2022-12-03 09:30)
DX: M54.16 Radiculopathy, lumbar region (principal); M54.50 Low back pain, unspecified; I10 Essential (primary) hypertension
CPT/HCPCS: 76000-TC-FY; J1100

== ENCOUNTER 2023-02-14 13:10 | Observation (INO) | payer OTHER ==
[2023-02-14 14:56] LABS: PH,URINE 5.5 (5.0-8.0); URINE APPEARANCE CLEAR; URINE BILIRUBIN NEGATIVE (NEGATIVE); URINE COLOR YELLOW; URINE GLUCOSE (UA) NEGATIVE (NEGATIVE); URINE KETONE NEGATIVE (NEGATIVE); URINE LEUK ESTERASE NEGATIVE (NEGATIVE); URINE NITRITE NEGATIVE (NEGATIVE); URINE PROTEIN NEGATIVE (NEGATIVE); URINE UROBILINOGEN 0.2 mg/dL (0.2-1.0)
[2023-02-14] MEDS ORDERED: morphine CARPU-JECT 2 MG/1 ML DISP.SYRIN IVPUSH ONE ×2 (14:56→20:08)
[2023-02-14] MEDS ORDERED: ONDANSETRON 4 MG/2 ML VIAL IVPUSH ONE ×2 (15:18→18:47)
[2023-02-14 15:24] LABS: BASO % 0.6 % (0-2.0); EOS % 1.8 % (0-4.5); HEMATOCRIT 34.2 % (32.4-45.2); HEMOGLOBIN 12.2 GM/dL (10.7-15.3); LYMPH % 18.1 % (8-40); MCH 31.3 pg (25.7-33.7); MCHC 35.8 g/dl (32.0-36.0); MEAN CELL VOLUME 87.4 fl (80-96); MEAN PLT VOLUME 8.2 fl (7.5-11.1); MONO % 7.4 % (3.8-10.2); NEUT % 72.1 % (42.8-82.8); PLATELET COUNT 227 10^3/uL (134-434); RBC 3.91 M/mm3 (3.60-5.2); RDW 14.6 % (11.6-15.6); WHITE BLOOD COUNT 8.2 K/mm3 (4.0-10.0)
[2023-02-14 15:33] LABS: POTASSIUM 3.2 mmol/L (3.5-5.1)
[2023-02-14] MEDS ORDERED: ONDANSETRON 4 MG/2 ML VIAL ONE ×2 (15:35→18:54)
[2023-02-14 15:36] LABS: CALCIUM 9.4 mg/dL (8.5-10.1)
[2023-02-14 15:37] LABS: ALBUMIN 3.9 g/dl (3.4-5.0); BLOOD UREA NITROGEN 12.2 mg/dL (7-18)
[2023-02-14 15:40] LABS: CREATININE 0.9 mg/dL (0.55-1.3)
[2023-02-14 15:41] LABS: BILIRUBIN,TOTAL 0.6 mg/dL (0.2-1); TOT PROT 8.2 g/dl (6.4-8.2)
[2023-02-14] MEDS ORDERED: POTASSIUM CHLORIDE ORAL LIQUID 20 MEQ/15 ML PO ONE (18:15)
[2023-02-14] MEDS ORDERED: MAG HYDROX/AL HYDROX/SIMETH 30 ML UNIT-DOSE CUP PO ONE (18:47)
[2023-02-14] MEDS ORDERED: FAMOTIDINE 20 MG/50 ML IVPB 20 MG/50 ML MG IVPB ONE ×2 (18:47→18:54)
[2023-02-14] MEDS ORDERED: LACTATED RINGERS SOLUTION 1000 ML INFUS.BAG IV ONE (18:48)
[2023-02-14] MEDS ORDERED: POTASSIUM CHLORIDE ORAL LIQUID 20 MEQ/15 ML ONE (18:54)
[2023-02-14] MEDS ORDERED: MAG HYDROX/AL HYDROX/SIMETH 30 ML UNIT-DOSE CUP ONE (18:54)
[2023-02-14] MEDS ORDERED: diphenhydrAMINE HCL 25 MG CAPSULE (FP) PO ONE ×2 (20:04→20:14)
[2023-02-14] MEDS ORDERED: ALBUTEROL SO4 0.083% IH SOL 2.5 MG/3 ML VIAL.NEB. NEB ONE ×2 (20:16)
[2023-02-15] MEDS ORDERED: ACETAMINOPHEN 1000 MG/100 ML BAG IVPB PRN (01:02)
[2023-02-15 01:52] VITALS: BMI 30.6
[2023-02-15] MEDS ORDERED: ALBUTEROL SO4 HFA INHALER IH PRN (02:57)
[2023-02-15] MEDS ORDERED: SODIUM CHLORIDE 1,000 ML IV SCH (03:15)
[2023-02-15] MEDS ORDERED: KETOROLAC TROMETHAMINE 30 MG/1 ML VIAL IM ONE (03:45)
[2023-02-15 07:35] LABS: BASO % 0.7 % (0-2.0); EOS % 4.6 % (0-4.5); HEMATOCRIT 33.3 % (32.4-45.2); HEMOGLOBIN 11.6 GM/dL (10.7-15.3); MCH 30.6 pg (25.7-33.7); MCHC 34.8 g/dl (32.0-36.0); MEAN CELL VOLUME 88.2 fl (80-96); MEAN PLT VOLUME 8.4 fl (7.5-11.1); MONO % 10.5 % (3.8-10.2); NEUT % 47.2 % (42.8-82.8); PLATELET COUNT 215 10^3/uL (134-434); RBC 3.78 M/mm3 (3.60-5.2); RDW 14.7 % (11.6-15.6); WHITE BLOOD COUNT 6.1 K/mm3 (4.0-10.0)
[2023-02-15 07:49] LABS: POTASSIUM 3.3 mmol/L (3.5-5.1)
[2023-02-15 07:58] LABS: ALBUMIN 3.5 g/dl (3.4-5.0); BLOOD UREA NITROGEN 15.7 mg/dL (7-18); CALCIUM 9.2 mg/dL (8.5-10.1); MAGNESIUM 1.3 mg/dL (1.8-2.4)
[2023-02-15 08:01] LABS: CREATININE 1.1 mg/dL (0.55-1.3); PHOSPHOROUS 4.3 mg/dL (2.5-4.9)
[2023-02-15 08:02] LABS: BILIRUBIN,TOTAL 0.6 mg/dL (0.2-1); TOT PROT 7.4 g/dl (6.4-8.2)
[2023-02-15] MEDS: PANTOPRAZOLE 20 MG TABLET PO SCH (09:29)
[2023-02-15] MEDS: CHOLECALCIFEROL (VIT D3) 400 UNIT (10 MCG) TABLET PO SCH (09:29)
[2023-02-15] MEDS: FUROSEMIDE 20 MG TABLET (FP) PO SCH (09:29)
[2023-02-15] MEDS: MAGNESIUM OXIDE 400 MG TABLET (FP) PO SCH (09:29)
[2023-02-15] MEDS: CARVEDILOL 12.5 MG TABLET (FP) PO SCH ×2 (09:29→21:13)
[2023-02-15] MEDS: LEVOTHYROXINE NA 25 MCG TABLET (FP) PO SCH (09:29)
[2023-02-15] MEDS: CYANOCOBALAMIN 1,000 MCG TABLET (FP) PO SCH (09:29)
[2023-02-15] MEDS: ENOXAPARIN NA (PORCINE) 40 MG/0.4 ML DISP.SYRIN SQ SCH (09:30)
[2023-02-15] MEDS: POTASSIUM CHLORIDE TABS 20 MEQ TABLET.ER (FP) PO SCH (09:30)
[2023-02-15] MEDS ORDERED: FAMOTIDINE 20 MG TABLET PO SCH (10:00)
[2023-02-15] MEDS ORDERED: MAGNESIUM SULF 50% (8.12 MEQ/2 ML-1 GM VIAL) IVPB ONE (11:47)
[2023-02-15] MEDS ORDERED: NAPH,MB-DB/K PH,MBDB POWDER PACKET PO ONE (11:47)
[2023-02-15] MEDS ORDERED: traMADol HCL 50 MG TABLET PO ONE (12:10)
[2023-02-15] MEDS: BUDESONIDE/FORMETEROL FUMARATE 160/4.5 mcg INHALER IH SCH ×2 (15:33→21:15)
[2023-02-15] MEDS ORDERED: LIDOCAINE 5% TOPICAL PATCH TP PRN (17:49)
[2023-02-15] MEDS: traMADol HCL 50 MG TABLET PO PRN (20:16)
[2023-02-15] MEDS: TIOTROPIUM BROMIDE 2.5 MCG (SPIRIVA) RESPIMAT INHALER IH SCH (20:17)
[2023-02-15] MEDS: rOPINIRole HCL 0.5 MG TABLET PO SCH (21:13)
[2023-02-15] MEDS: LIDOCAINE PATCH REMOVAL MC SCH (21:13)
[2023-02-15] MEDS: ATORVASTATIN CA 20 MG TABLET (FP) PO SCH (21:14)
[2023-02-15] MEDS: POLYETHYLENE GLYCOL (HEALTHYLAX) 3350 17 GM PACKET PO PRN (21:32)
[2023-02-16] MEDS: traMADol HCL 50 MG TABLET PO PRN ×3 (04:21→21:03)
[2023-02-16 08:46] LABS: POTASSIUM 3.9 mmol/L (3.5-5.1)
[2023-02-16 08:48] LABS: BLOOD UREA NITROGEN 16.1 mg/dL (7-18)
[2023-02-16 08:51] LABS: CREATININE 0.8 mg/dL (0.55-1.3)
[2023-02-16] MEDS: CYANOCOBALAMIN 1,000 MCG TABLET (FP) PO SCH (09:39)
[2023-02-16] MEDS: MAGNESIUM OXIDE 400 MG TABLET (FP) PO SCH (09:39)
[2023-02-16] MEDS: ASPIRIN 81 MG CHEWABLE TABLETS PO SCH (09:39)
[2023-02-16] MEDS: LEVOTHYROXINE NA 25 MCG TABLET (FP) PO SCH (09:39)
[2023-02-16] MEDS: LOSARTAN POTASSIUM 50 MG TABLET PO SCH (09:39)
[2023-02-16] MEDS: FUROSEMIDE 20 MG TABLET (FP) PO SCH (09:39)
[2023-02-16] MEDS: POLYETHYLENE GLYCOL (HEALTHYLAX) 3350 17 GM PACKET PO PRN (09:39)
[2023-02-16] MEDS: ENOXAPARIN NA (PORCINE) 40 MG/0.4 ML DISP.SYRIN SQ SCH (09:39)
[2023-02-16] MEDS: CHOLECALCIFEROL (VIT D3) 400 UNIT (10 MCG) TABLET PO SCH (09:40)
[2023-02-16] MEDS: TIOTROPIUM BROMIDE 2.5 MCG (SPIRIVA) RESPIMAT INHALER IH SCH (09:40)
[2023-02-16] MEDS: PANTOPRAZOLE 20 MG TABLET PO SCH (09:40)
[2023-02-16] MEDS: POTASSIUM CHLORIDE TABS 20 MEQ TABLET.ER (FP) PO SCH (09:40)
[2023-02-16] MEDS: CARVEDILOL 12.5 MG TABLET (FP) PO SCH ×2 (09:40→21:02)
[2023-02-16] MEDS: BUDESONIDE/FORMETEROL FUMARATE 160/4.5 mcg INHALER IH SCH ×2 (09:41→21:06)
[2023-02-16] MEDS: POLYETHYLENE GLYCOL (HEALTHYLAX) 3350 17 GM PACKET PO SCH ×2 (12:03→21:02)
[2023-02-16] MEDS: ATORVASTATIN CA 20 MG TABLET (FP) PO SCH (21:02)
[2023-02-16] MEDS: rOPINIRole HCL 0.5 MG TABLET PO SCH (21:02)
[2023-02-16] MEDS: LIDOCAINE PATCH REMOVAL MC SCH (21:02)
[2023-02-17] MEDS: traMADol HCL 50 MG TABLET PO PRN (06:45)
[2023-02-17 07:43] LABS: BASO % 0.4 % (0-2.0); EOS % 3.7 % (0-4.5); HEMATOCRIT 33.5 % (32.4-45.2); HEMOGLOBIN 11.6 GM/dL (10.7-15.3); LYMPH % 26.8 % (8-40); MCH 30.6 pg (25.7-33.7); MCHC 34.5 g/dl (32.0-36.0); MEAN CELL VOLUME 88.7 fl (80-96); MEAN PLT VOLUME 8.2 fl (7.5-11.1); NEUT % 63.1 % (42.8-82.8); PLATELET COUNT 214 10^3/uL (134-434); RBC 3.78 M/mm3 (3.60-5.2); RDW 14.8 % (11.6-15.6); WHITE BLOOD COUNT 6.5 K/mm3 (4.0-10.0)
[2023-02-17 07:58] LABS: POTASSIUM 4.2 mmol/L (3.5-5.1)
[2023-02-17 08:04] LABS: ALBUMIN 3.2 g/dl (3.4-5.0); BLOOD UREA NITROGEN 20.2 mg/dL (7-18); MAGNESIUM 1.8 mg/dL (1.8-2.4)
[2023-02-17 08:07] LABS: CREATININE 0.9 mg/dL (0.55-1.3); PHOSPHOROUS 3.3 mg/dL (2.5-4.9)
[2023-02-17 08:09] LABS: TOT PROT 7.1 g/dl (6.4-8.2)
[2023-02-17 08:11] LABS: BILIRUBIN,TOTAL 0.5 mg/dL (0.2-1); CALCIUM 9.5 mg/dL (8.5-10.1)
[2023-02-17 10:05] VITALS: BP 152/83; PULSE 55; RESP 17; TEMP 98.9
[2023-02-17] MEDS: LOSARTAN POTASSIUM 50 MG TABLET PO SCH (10:18)
[2023-02-17] MEDS: LEVOTHYROXINE NA 25 MCG TABLET (FP) PO SCH (10:19)
[2023-02-17] MEDS: FUROSEMIDE 20 MG TABLET (FP) PO SCH (10:19)
[2023-02-17] MEDS: CHOLECALCIFEROL (VIT D3) 400 UNIT (10 MCG) TABLET PO SCH (10:19)
[2023-02-17] MEDS: POTASSIUM CHLORIDE TABS 20 MEQ TABLET.ER (FP) PO SCH (10:19)
[2023-02-17] MEDS: ASPIRIN 81 MG CHEWABLE TABLETS PO SCH (10:19)
[2023-02-17] MEDS: MAGNESIUM OXIDE 400 MG TABLET (FP) PO SCH (10:19)
[2023-02-17] MEDS: CARVEDILOL 12.5 MG TABLET (FP) PO SCH (10:19)
[2023-02-17] MEDS: CYANOCOBALAMIN 1,000 MCG TABLET (FP) PO SCH (10:19)
[2023-02-17] MEDS: POLYETHYLENE GLYCOL (HEALTHYLAX) 3350 17 GM PACKET PO SCH (10:20)
[2023-02-17] MEDS: ENOXAPARIN NA (PORCINE) 40 MG/0.4 ML DISP.SYRIN SQ SCH (10:20)
[2023-02-17] MEDS: PANTOPRAZOLE 20 MG TABLET PO SCH (10:20)
[2023-02-17] MEDS: BUDESONIDE/FORMETEROL FUMARATE 160/4.5 mcg INHALER IH SCH (10:25)
[2023-02-17] MEDS: TIOTROPIUM BROMIDE 2.5 MCG (SPIRIVA) RESPIMAT INHALER IH SCH (10:25)
== END 2023-02-17 13:39 | disposition home or self-care (01) ==
LOC: JER 13:10 → INTOOBSV 22:13 → JERBED 22:13 → J4S 02-15 00:44
PROVIDERS: ADMIT Internal Medicine; ATTEND Internal Medicine
PROC: 3E033NZ Introduction of Analgesics, Hypnotics, Sedatives into Peripheral Vein, Percutaneous Approach (ICD-10-PCS; principal; 2023-02-14)
PROC: 3E0F7GC Introduction of Other Therapeutic Substance into Respiratory Tract, Via Natural or Artificial Opening (ICD-10-PCS; 2023-02-14)
PROC: 3E023GC Introduction of Other Therapeutic Substance into Muscle, Percutaneous Approach (ICD-10-PCS; 2023-02-14)
PROC: 3E033GC Introduction of Other Therapeutic Substance into Peripheral Vein, Percutaneous Approach (ICD-10-PCS; 2023-02-14)
PROC: 3E0233Z Introduction of Anti-inflammatory into Muscle, Percutaneous Approach (ICD-10-PCS; 2023-02-14)
PROC: 3E0337Z Introduction of Electrolytic and Water Balance Substance into Peripheral Vein, Percutaneous Approach (ICD-10-PCS; 2023-02-14)
DX: K75.81 Nonalcoholic steatohepatitis (NASH) (principal); Z87.440 Personal history of urinary (tract) infections; N20.0 Calculus of kidney; G89.29 Other chronic pain; M54.50 Low back pain, unspecified; Z88.8 Allergy status to other drugs, medicaments and biological substances
CPT/HCPCS: 36415; 71045-TC-FY; 74177-TC; 76705-TC; 80048; 80053; 81003; 83735; 84100; 84484; 84703; 85025; 87086; 93005; 93010; 94640; 96361; 96365; 96372; 96374; 99285-25; C9803-CS; G0378; Q9967; U0003; U0005

== ENCOUNTER 2023-03-06 06:35 | Day surgery (SDC) | payer OTHER ==
[2023-03-01 13:23] VITALS: BMI 30.8
[2023-03-06] MEDS ORDERED: MIDAZOLAM HCL 2 MG/2 ML SINGLE DOSE VIAL ONE (08:36)
[2023-03-06] MEDS ORDERED: PROPOFOL 20 ML ONE (09:01)
[2023-03-06] MEDS ORDERED: ACETAMINOPHEN 325 MG TABLET (FP) ONE (10:23)
[2023-03-06] MEDS ORDERED: oxyCODONE HCL 5 MG TABLET ONE (10:30)
[2023-03-06 10:37] VITALS: RESP 18
[2023-03-06 10:43] VITALS: TEMP 98.7
[2023-03-06] MEDS ORDERED: oxyCODONE HCL 5 MG TABLET PO PRN (11:29)
[2023-03-06] MEDS ORDERED: ACETAMINOPHEN 325 MG TABLET (FP) PO PRN (11:29)
[2023-03-06 12:10] VITALS: BP 145/76; PULSE 61
== END 2023-03-06 11:15 | disposition home or self-care (01) ==
LOC: FASU 06:35
PROVIDERS: ATTEND Orthopaedic Surgery Hand Surgery
PROC: 01N50ZZ Release Median Nerve, Open Approach (ICD-10-PCS; principal; 2023-03-06 09:01)
DX: G56.01 Carpal tunnel syndrome, right upper limb (principal)

== ENCOUNTER 2023-04-15 05:40 | Day surgery (SDC) | payer OTHER ==
[2023-04-12 16:08] VITALS: BMI 30.8
[2023-04-15 13:06] VITALS: RESP 20
[2023-04-15] MEDS ORDERED: MIDAZOLAM HCL 2 MG/2 ML SINGLE DOSE VIAL ONE (14:38)
[2023-04-15] MEDS ORDERED: ONDANSETRON 4 MG/2 ML VIAL ONE (14:45)
[2023-04-15] MEDS ORDERED: ACETAMINOPHEN 500 MG TABLET (FP) ONE (15:18)
[2023-04-15] MEDS ORDERED: ACETAMINOPHEN 500 MG TABLET (FP) PO ONE (15:21)
[2023-04-15 16:30] VITALS: TEMP 98.1
[2023-04-15 16:32] VITALS: BP 135/84; PULSE 85
== END 2023-04-15 15:49 | disposition home or self-care (01) ==
LOC: JASU-SURG 05:40
PROVIDERS: ATTEND Urology
PROC: 0TF4XZZ Fragmentation in Left Kidney Pelvis, External Approach (ICD-10-PCS; principal; 2023-04-15 09:30)
DX: N20.0 Calculus of kidney (principal)

== ENCOUNTER 2023-04-22 14:14 | Emergency (ER) | payer OTHER ==
[2023-04-22 14:31] VITALS: RESP 16; TEMP 98.1; BMI 28.3
[2023-04-22] MEDS ORDERED: ACETAMINOPHEN 1000 MG/100 ML BAG IVPB ONE (15:07)
[2023-04-22] MEDS ORDERED: ACETAMINOPHEN INJECTION 100 ML IVPB ONE (15:24)
[2023-04-22] MEDS ORDERED: DIPHTH,PERTUSS(ACELL),TET 0.5 ML DISP.SYRIN IM ONE ×2 (15:29→15:57)
[2023-04-22 15:44] LABS: BASO % 0.3 % (0-2.0); EOS % 0.3 % (0-4.5); HEMATOCRIT 40.8 % (32.4-45.2); HEMOGLOBIN 13.8 GM/dL (10.7-15.3); LYMPH % 8.9 % (8-40); MCH 29.6 pg (25.7-33.7); MCHC 33.8 g/dl (32.0-36.0); MEAN CELL VOLUME 87.5 fl (80-96); MEAN PLT VOLUME 8.4 fl (7.5-11.1); MONO % 2.4 % (3.8-10.2); NEUT % 88.1 % (42.8-82.8); PLATELET COUNT 304 10^3/uL (134-434); RBC 4.66 M/mm3 (3.60-5.2); RDW 14.7 % (11.6-15.6); WHITE BLOOD COUNT 10.5 K/mm3 (4.0-10.0)
[2023-04-22 16:08] LABS: POTASSIUM 3.3 mmol/L (3.5-5.1)
[2023-04-22 16:11] LABS: ALBUMIN 3.9 g/dl (3.4-5.0); BLOOD UREA NITROGEN 22.8 mg/dL (7-18)
[2023-04-22 16:14] LABS: CREATININE 1.1 mg/dL (0.55-1.3)
[2023-04-22 16:15] LABS: BILIRUBIN,TOTAL 0.5 mg/dL (0.2-1); TOT PROT 8.4 g/dl (6.4-8.2)
[2023-04-22] MEDS ORDERED: traMADol HCL 50 MG TABLET ONE (17:56)
[2023-04-22] MEDS ORDERED: traMADol HCL 50 MG TABLET PO ONE (17:56)
[2023-04-22 19:03] VITALS: BP 155/90; PULSE 87
== END 2023-04-22 19:13 | disposition home or self-care (01) ==
LOC: JER 14:14
PROC: 3E033NZ Introduction of Analgesics, Hypnotics, Sedatives into Peripheral Vein, Percutaneous Approach (ICD-10-PCS; principal; 2023-04-22)
PROC: 3E0234Z Introduction of Serum, Toxoid and Vaccine into Muscle, Percutaneous Approach (ICD-10-PCS; 2023-04-22)
DX: R07.9 Chest pain, unspecified (principal); R06.02 Shortness of breath; R11.2 Nausea with vomiting, unspecified
CPT/HCPCS: 36415; 71045-TC-FY; 80053; 82962; 84484; 85025; 90715; 93005; 93010

== ENCOUNTER 2023-05-01 06:04 | Day surgery (SDC) | payer OTHER ==
[2023-04-23 09:31] VITALS: BMI 28.3
[2023-05-01 06:45] VITALS: TEMP 97
[2023-05-01] MEDS ORDERED: LIDOCAINE HCL 2% (20ML MULTI-DOSE VIAL) ONE (07:08)
[2023-05-01] MEDS ORDERED: PROPOFOL 20 ML ONE (07:28)
[2023-05-01] MEDS ORDERED: MIDAZOLAM HCL 2 MG/2 ML SINGLE DOSE VIAL ONE (07:29)
[2023-05-01] MEDS ORDERED: ONDANSETRON 4 MG/2 ML VIAL ONE (07:48)
[2023-05-01] MEDS ORDERED: DEXAMETHASONE SOD PHOSPHATE 4 MG/1 ML VIAL ONE (07:48)
[2023-05-01 08:39] VITALS: RESP 18
[2023-05-01 08:42] VITALS: PULSE 69
[2023-05-01 09:40] VITALS: BP 149/95
== END 2023-05-01 09:00 | disposition home or self-care (01) ==
LOC: FASU 06:04
PROVIDERS: ATTEND Orthopaedic Surgery Hand Surgery
PROC: 01N50ZZ Release Median Nerve, Open Approach (ICD-10-PCS; principal; 2023-05-01 07:53)
DX: G56.02 Carpal tunnel syndrome, left upper limb (principal)

== ENCOUNTER 2023-05-10 13:22 | Emergency (ER) | payer OTHER ==
[2023-05-10 13:38] VITALS: BP 132/96; PULSE 92; RESP 20; TEMP 98.3; BMI 29.5
[2023-05-10] MEDS ORDERED: ACETAMINOPHEN 1000 MG/100 ML BAG IVPB ONE (13:48)
[2023-05-10] MEDS ORDERED: ACETAMINOPHEN INJECTION 100 ML IVPB ONE (14:04)
[2023-05-10] MEDS ORDERED: SULFAMETHOXAZOLE/TRIMETHOPRIM 800MG/160MG D.S. TABLET PO ONE (14:17)
[2023-05-10] MEDS ORDERED: ACETAMINOPHEN 500 MG TABLET (FP) PO ONE (14:17)
[2023-05-10] MEDS ORDERED: ACETAMINOPHEN 500 MG TABLET (FP) ONE (14:17)
[2023-05-10] MEDS ORDERED: SULFAMETHOXAZOLE/TRIMETHOPRIM 800MG/160MG D.S. TABLET ONE (14:18)
== END 2023-05-10 14:28 | disposition home or self-care (01) ==
LOC: FER 13:22
PROC: 3E033NZ Introduction of Analgesics, Hypnotics, Sedatives into Peripheral Vein, Percutaneous Approach (ICD-10-PCS; principal; 2023-05-10)
DX: L76.32 Postprocedural hematoma of skin and subcutaneous tissue following other procedure (principal); L08.9 Local infection of the skin and subcutaneous tissue, unspecified
CPT/HCPCS: 99284-25

== ENCOUNTER 2023-05-21 12:00 | Emergency (ER) | payer OTHER ==
[2023-05-21 12:08] VITALS: BMI 29.2
[2023-05-21] MEDS ORDERED: SODIUM CHLORIDE 0.9% 500 ML INFUS.BAG IV ONE (13:29)
[2023-05-21] MEDS ORDERED: ACETAMINOPHEN 1000 MG/100 ML BAG IVPB ONE (13:29)
[2023-05-21] MEDS ORDERED: ACETAMINOPHEN INJECTION 100 ML IVPB ONE (13:42)
[2023-05-21] MEDS ORDERED: ONDANSETRON 4 MG/2 ML VIAL ONE (15:03)
[2023-05-21] MEDS ORDERED: ONDANSETRON 4 MG/2 ML VIAL IVPUSH ONE (15:07)
[2023-05-21] MEDS ORDERED: FAMOTIDINE 20 MG/50 ML IVPB 20 MG/50 ML MG IVPB ONE ×2 (15:27→15:30)
[2023-05-21 15:35] LABS: BASO % 0.5 % (0-2.0); EOS % 0.4 % (0-4.5); HEMATOCRIT 40.1 % (32.4-45.2); HEMOGLOBIN 13.7 GM/dL (10.7-15.3); LYMPH % 27.8 % (8-40); MCH 29.8 pg (25.7-33.7); MCHC 34.1 g/dl (32.0-36.0); MEAN CELL VOLUME 87.3 fl (80-96); MEAN PLT VOLUME 7.2 fl (7.5-11.1); MONO % 6.5 % (3.8-10.2); NEUT % 64.8 % (42.8-82.8); PLATELET COUNT 333 10^3/uL (134-434); RBC 4.59 M/mm3 (3.60-5.2); RDW 15.4 % (11.6-15.6); WHITE BLOOD COUNT 7.9 K/mm3 (4.0-10.0)
[2023-05-21 15:39] LABS: EPI CELLS 15 /uL (0-25.1); HYALINE CASTS 0 /uL (0-3.1); PH,URINE 5.5 (5.0-8.0); URINE APPEARANCE CLEAR; URINE BACTERIA 103 /uL (0-1359); URINE BILIRUBIN NEGATIVE (NEGATIVE); URINE COLOR YELLOW; URINE GLUCOSE (UA) NEGATIVE (NEGATIVE); URINE KETONE NEGATIVE (NEGATIVE); URINE LEUK ESTERASE NEGATIVE (NEGATIVE); URINE NITRITE NEGATIVE (NEGATIVE); URINE PROTEIN 1+ (NEGATIVE); URINE RBC 15 /uL (0-23.9); URINE UROBILINOGEN 0.2 mg/dL (0.2-1.0); URINE WBC 7 /uL (0-25.8)
[2023-05-21] MEDS ORDERED: IBUPROFEN 400 MG TABLET (FP) PO ONE ×3 (15:47→17:51)
[2023-05-21 16:01] LABS: POTASSIUM 3.8 mmol/L (3.5-5.1)
[2023-05-21 16:03] LABS: ALBUMIN 3.6 g/dl (3.4-5.0); BLOOD UREA NITROGEN 17.3 mg/dL (7-18); CALCIUM 9.1 mg/dL (8.5-10.1)
[2023-05-21 16:06] LABS: CREATININE 0.6 mg/dL (0.55-1.3)
[2023-05-21 16:08] LABS: BILIRUBIN,TOTAL 0.6 mg/dL (0.2-1)
[2023-05-21] MEDS ORDERED: traMADol HCL 50 MG TABLET PO ONE (18:13)
[2023-05-21] MEDS ORDERED: traMADol HCL 50 MG TABLET ONE (18:22)
[2023-05-21 19:45] VITALS: BP 138/76; PULSE 66; RESP 18; TEMP 98
== END 2023-05-21 19:10 | disposition home or self-care (01) ==
LOC: JER 12:00
PROC: 3E033GC Introduction of Other Therapeutic Substance into Peripheral Vein, Percutaneous Approach (ICD-10-PCS; principal; 2023-05-21)
PROC: 3E033NZ Introduction of Analgesics, Hypnotics, Sedatives into Peripheral Vein, Percutaneous Approach (ICD-10-PCS; 2023-05-21)
PROC: 3E033GC Introduction of Other Therapeutic Substance into Peripheral Vein, Percutaneous Approach (ICD-10-PCS; 2023-05-21)
DX: R10.13 Epigastric pain (principal); K62.5 Hemorrhage of anus and rectum; R11.2 Nausea with vomiting, unspecified; R30.0 Dysuria; R10.30 Lower abdominal pain, unspecified
CPT/HCPCS: 36415; 74176-TC; 80053; 81003; 82272; 83690; 85025; 87086; 99284-25

== ENCOUNTER 2023-06-17 04:55 | Day surgery (SDC) | payer OTHER ==
[2023-06-12 14:34] VITALS: BMI 30.6
[2023-06-17] MEDS ORDERED: DEXAMETHASONE SOD PHOSPHATE 10 MG/1 ML VIAL ONE ×2 (11:32→11:51)
[2023-06-17] MEDS ORDERED: LIDOCAINE HCL/PF 1% SDV 5ML VIAL ONE (11:32)
[2023-06-17] MEDS ORDERED: MIDAZOLAM HCL 2 MG/2 ML SINGLE DOSE VIAL ONE ×2 (13:24→13:28)
[2023-06-17] MEDS ORDERED: PROPOFOL 20 ML ONE (13:25)
[2023-06-17] MEDS ORDERED: BUPIVACAINE HCL/PF 0.25% (2.5MG/ML) 10 ML VIAL ONE (13:27)
[2023-06-17] MEDS ORDERED: LIDOCAINE HCL/PF 2% SDV 5ML VIAL ONE (13:28)
[2023-06-17] MEDS ORDERED: IOHEXOL 180 MG/1 ML ML IJ ONE ×2 (13:31→13:34)
[2023-06-17] MEDS ORDERED: BUPIVACAINE HCL/PF 2.5 MG/ML - 30 ML VIAL IJ ONE ×2 (13:31→13:34)
[2023-06-17] MEDS ORDERED: LIDOCAINE HCL 1% PRESERVATIVE FREE - 30ML VIAL IJ ONE (13:34)
[2023-06-17] MEDS ORDERED: ACETAMINOPHEN INJECTION 100 ML IVPB ONE (14:20)
[2023-06-17 14:37] VITALS: RESP 18
[2023-06-17] MEDS ORDERED: ACETAMINOPHEN 1000 MG/100 ML BAG IVPB ONE (15:30)
[2023-06-17 17:57] VITALS: BP 162/89; PULSE 68; TEMP 98.4
== END 2023-06-17 16:22 | disposition home or self-care (01) ==
LOC: JASU-SURG 04:55
PROVIDERS: ATTEND Physical Medicine & Rehabilitation
PROC: 3E0R3BZ Introduction of Anesthetic Agent into Spinal Canal, Percutaneous Approach (ICD-10-PCS; 2023-06-17)
PROC: 3E0R33Z Introduction of Anti-inflammatory into Spinal Canal, Percutaneous Approach (ICD-10-PCS; principal; 2023-06-17 12:30)
DX: M54.16 Radiculopathy, lumbar region (principal)
CPT/HCPCS: 76000-TC-FY; J1100

== ENCOUNTER 2023-07-11 14:40 | Emergency (ER) | payer OTHER ==
[2023-07-11 14:46] VITALS: RESP 18; TEMP 98.1; BMI 27.4
[2023-07-11] MEDS ORDERED: KETOROLAC TROMETHAMINE 30 MG/1 ML VIAL IM ONE (16:06)
[2023-07-11] MEDS ORDERED: CYCLOBENZAPRINE HCL 10 MG TABLET (FP) PO ONE (16:06)
[2023-07-11] MEDS ORDERED: LIDOCAINE 5% TOPICAL PATCH TP ONE (16:06)
[2023-07-11] MEDS ORDERED: LIDOCAINE 4% PATCH TP ONE (16:08)
[2023-07-11] MEDS ORDERED: CYCLOBENZAPRINE HCL 10 MG TABLET (FP) ONE (16:09)
[2023-07-11] MEDS ORDERED: KETOROLAC TROMETHAMINE 30 MG/1 ML VIAL ONE (16:09)
[2023-07-11 16:39] VITALS: BP 149/99; PULSE 77
[2023-07-11] MEDS ORDERED: LIDOCAINE PATCH REMOVAL MC ONE (22:00)
== END 2023-07-11 16:46 | disposition home or self-care (01) ==
LOC: JERFT 14:40
PROC: 3E0233Z Introduction of Anti-inflammatory into Muscle, Percutaneous Approach (ICD-10-PCS; principal; 2023-07-11)
DX: M25.561 Pain in right knee (principal)
CPT/HCPCS: 73562-TC-RT-FY; 99284-25

== ENCOUNTER 2023-08-12 04:10 | Day surgery (SDC) | payer OTHER ==
[2023-08-08 13:22] VITALS: BMI 29.7
[2023-08-12] MEDS ORDERED: MIDAZOLAM HCL 2 MG/2 ML SINGLE DOSE VIAL ONE (09:48)
[2023-08-12] MEDS ORDERED: ONDANSETRON 4 MG/2 ML VIAL ONE (09:51)
[2023-08-12] MEDS ORDERED: FENTANYL CITRATE/PF 50 MCG/ML VIAL ONE (09:51)
[2023-08-12] MEDS ORDERED: BUPIVACAINE HCL/PF 0.5% (5MG/ML) 10 ML VIAL IJ ONE (10:00)
[2023-08-12] MEDS ORDERED: LIDOCAINE 1% P/F 10 MG/ML VIAL INF ONE (10:00)
[2023-08-12] MEDS ORDERED: DEXAMETHASONE SOD PHOSPHATE 10 MG/1 ML VIAL IM ONE (10:02)
[2023-08-12] MEDS ORDERED: IOHEXOL 180 MG/1 ML ML IJ ONE (10:02)
[2023-08-12 12:09] VITALS: BP 116/82; PULSE 89; RESP 20; TEMP 97.8
== END 2023-08-12 12:20 | disposition home or self-care (01) ==
LOC: JASU-SURG 04:10
PROVIDERS: ATTEND Physical Medicine & Rehabilitation
PROC: 3E0T3BZ Introduction of Anesthetic Agent into Peripheral Nerves and Plexi, Percutaneous Approach (ICD-10-PCS; principal; 2023-08-12 10:00)
DX: M47.816 Spondylosis without myelopathy or radiculopathy, lumbar region (principal); M54.50 Low back pain, unspecified
CPT/HCPCS: 76000-TC-FY; J1100

== ENCOUNTER 2023-10-07 11:03 | Inpatient (IN) | payer OTHER ==
[2023-10-07 11:24] VITALS: BMI 28.8
[2023-10-07 12:27] LABS: BASO % 1.1 % (0-2.0); EOS % 2.2 % (0-4.5); HEMATOCRIT 39.6 % (32.4-45.2); HEMOGLOBIN 13.3 GM/dL (10.7-15.3); LYMPH % 20.2 % (8-40); MCH 30.6 pg (25.7-33.7); MCHC 33.7 g/dl (32.0-36.0); MEAN CELL VOLUME 90.8 fl (80-96); MEAN PLT VOLUME 7.3 fl (7.5-11.1); MONO % 5.5 % (3.8-10.2); PLATELET COUNT 415 10^3/uL (134-434); RBC 4.36 M/mm3 (3.60-5.2); RDW 14.5 % (11.6-15.6); WHITE BLOOD COUNT 10.6 K/mm3 (4.0-10.0)
[2023-10-07 12:43] LABS: POTASSIUM 3.6 mmol/L (3.5-5.1)
[2023-10-07 12:45] LABS: CALCIUM 10.5 mg/dL (8.5-10.1)
[2023-10-07 12:46] LABS: EPI CELLS >36 /uL (0-25.1); HYALINE CASTS 14 /uL (0-3.1); URINE APPEARANCE TURBID; URINE BILIRUBIN 2+ (NEGATIVE); URINE COLOR DK YELLOW; URINE GLUCOSE (UA) NEGATIVE (NEGATIVE); URINE KETONE TRACE (NEGATIVE); URINE LEUK ESTERASE TRACE (NEGATIVE); URINE NITRITE POSITIVE (NEGATIVE); URINE PROTEIN 2+ (NEGATIVE); URINE WBC 49 /uL (0-25.8)
[2023-10-07 12:46] LABS: ALBUMIN 3.7 g/dl (3.4-5.0); BLOOD UREA NITROGEN 17.9 mg/dL (7-18); MAGNESIUM 1.4 mg/dL (1.8-2.4)
[2023-10-07 12:47] LABS: URINE BACTERIA 909.8 /uL (0-1359); URINE RBC 37.9 /uL (0-23.9)
[2023-10-07 12:51] LABS: BILIRUBIN,TOTAL 0.5 mg/dL (0.2-1); TOT PROT 8.2 g/dl (6.4-8.2)
[2023-10-07] MEDS ORDERED: CEFTRIAXONE 1,000 MG in DEXTROSE 5%-WATER - 50 ML IVPB ONE (14:19)
[2023-10-07] MEDS ORDERED: CEFTRIAXONE 1 GM/50 ML BAG ONE (14:34)
[2023-10-07 15:08] LABS: N-TERMINAL BNP 66.6 pg/ml (5-125)
[2023-10-07] MEDS ORDERED: ACETAMINOPHEN 325 MG TABLET (FP) PO PRN (15:28)
[2023-10-07] MEDS ORDERED: oxyCODONE HCL 5 MG TABLET PO PRN (15:28)
[2023-10-07] MEDS ORDERED: MAGNESIUM SULFATE IN WATER 2 GM/50 ML IVPB IVPB ONE ×2 (15:29→15:59)
[2023-10-07] MEDS ORDERED: FUROSEMIDE 40 MG/4 ML INJECTABLE VIAL IVPUSH SCH (15:30)
[2023-10-07] MEDS ORDERED: FUROSEMIDE 40 MG/4 ML INJECTABLE VIAL ONE (15:59)
[2023-10-07] MEDS ORDERED: CYCLOBENZAPRINE HCL 5 MG TABLET ONE ×2 (15:59→21:05)
[2023-10-07] MEDS: CYCLOBENZAPRINE HCL 5 MG TABLET PO SCH ×2 (16:12→21:15)
[2023-10-07] MEDS: FUROSEMIDE 40 MG/4 ML INJECTABLE VIAL IVPUSH SCH (16:12)
[2023-10-07] MEDS ORDERED: ACETAMINOPHEN 500 MG TABLET (FP) ONE (19:00)
[2023-10-07] MEDS: ACETAMINOPHEN 500 MG TABLET (FP) PO PRN (19:02)
[2023-10-07] MEDS ORDERED: HEPARIN NA (PORCINE) 5,000 UNITS/ML 1ML VIAL ONE (21:05)
[2023-10-07] MEDS ORDERED: CARVEDILOL 12.5 MG TABLET (FP) ONE (21:05)
[2023-10-07] MEDS ORDERED: oxyCODONE HCL 5 MG TABLET ONE (21:11)
[2023-10-07] MEDS: HEPARIN NA (PORCINE) 5,000 UNITS/ML 1ML VIAL SQ SCH (21:15)
[2023-10-07] MEDS: CARVEDILOL 12.5 MG TABLET (FP) PO SCH (21:15)
[2023-10-07] MEDS: CALCIUM 500MG/VIT-D 200 UNITS COMBO TABLET (FP) PO SCH (21:36)
[2023-10-07] MEDS ORDERED: rOPINIRole HCL 0.5 MG TABLET PO SCH (22:00)
[2023-10-07] MEDS ORDERED: LIDOCAINE PATCH REMOVAL MC SCH (22:00)
[2023-10-08] MEDS ORDERED: ACETAMINOPHEN 500 MG TABLET (FP) ONE (02:12)
[2023-10-08] MEDS: ACETAMINOPHEN 500 MG TABLET (FP) PO PRN (02:23)
[2023-10-08] MEDS ORDERED: CYCLOBENZAPRINE HCL 5 MG TABLET ONE ×2 (06:08→14:24)
[2023-10-08] MEDS: CYCLOBENZAPRINE HCL 5 MG TABLET PO SCH ×2 (06:14→14:28)
[2023-10-08] MEDS ORDERED: LEVOTHYROXINE NA 25 MCG TABLET (FP) PO SCH (07:00)
[2023-10-08] MEDS ORDERED: LEVOTHYROXINE NA 25 MCG TABLET (FP) ONE (07:41)
[2023-10-08 08:13] LABS: BASO % 0.8 % (0-2.0); EOS % 4.4 % (0-4.5); HEMATOCRIT 35.5 % (32.4-45.2); HEMOGLOBIN 11.9 GM/dL (10.7-15.3); LYMPH % 30.8 % (8-40); MCHC 33.7 g/dl (32.0-36.0); MEAN CELL VOLUME 92.1 fl (80-96); MEAN PLT VOLUME 7.8 fl (7.5-11.1); MONO % 6.8 % (3.8-10.2); NEUT % 57.2 % (42.8-82.8); PLATELET COUNT 323 10^3/uL (134-434); RBC 3.85 M/mm3 (3.60-5.2); RDW 14.3 % (11.6-15.6); WHITE BLOOD COUNT 7.2 K/mm3 (4.0-10.0)
[2023-10-08 08:27] LABS: POTASSIUM 3.3 mmol/L (3.5-5.1)
[2023-10-08 08:30] LABS: BLOOD UREA NITROGEN 22.6 mg/dL (7-18); CALCIUM 9.5 mg/dL (8.5-10.1)
[2023-10-08] MEDS ORDERED: ACETAMINOPHEN 325 MG TABLET (FP) ONE (09:03)
[2023-10-08] MEDS ORDERED: oxyCODONE HCL 5 MG TABLET ONE (09:04)
[2023-10-08] MEDS ORDERED: LIDOCAINE 4% PATCH TP ONE (09:54)
[2023-10-08] MEDS ORDERED: CEFTRIAXONE 1 GM/50 ML BAG ONE (09:57)
[2023-10-08] MEDS ORDERED: PANTOPRAZOLE 40 MG TABLET PO SCH (10:00)
[2023-10-08] MEDS: CARVEDILOL 12.5 MG TABLET (FP) PO SCH (10:00)
[2023-10-08] MEDS ORDERED: LOSARTAN POTASSIUM 50 MG TABLET PO SCH (10:00)
[2023-10-08] MEDS ORDERED: CEFTRIAXONE 1 GM in DEXTROSE 5%-WATER - 50 ML IVPB SCH (10:00)
[2023-10-08] MEDS ORDERED: FAMOTIDINE 40 MG TABLET PO SCH (10:00)
[2023-10-08] MEDS ORDERED: LIDOCAINE 4% PATCH TP SCH (10:00)
[2023-10-08] MEDS ORDERED: CARVEDILOL 12.5 MG TABLET (FP) PO SCH (10:00)
[2023-10-08] MEDS: HEPARIN NA (PORCINE) 5,000 UNITS/ML 1ML VIAL SQ SCH (10:13)
[2023-10-08] MEDS: FUROSEMIDE 40 MG/4 ML INJECTABLE VIAL IVPUSH SCH (10:13)
[2023-10-08] MEDS: CALCIUM 500MG/VIT-D 200 UNITS COMBO TABLET (FP) PO SCH (10:14)
[2023-10-08] MEDS ORDERED: FUROSEMIDE 40 MG/4 ML INJECTABLE VIAL ONE (10:19)
[2023-10-08 14:31] VITALS: BP 133/72; PULSE 79; RESP 19; TEMP 97.9
[2023-10-08] MEDS ORDERED: SULFAMETHOXAZOLE/TRIMETHOPRIM 800MG/160MG D.S. TABLET PO SCH (22:00)
== END 2023-10-08 15:00 | disposition home or self-care (01) | DRG 690 ==
LOC: JER 11:03 → OBSVTOIN 14:14 → JERBED 14:14
PROVIDERS: ADMIT Internal Medicine; ATTEND Internal Medicine
DX: N39.0 Urinary tract infection, site not specified (principal); I42.0 Dilated cardiomyopathy; K51.90 Ulcerative colitis, unspecified, without complications; I50.32 Chronic diastolic (congestive) heart failure; R07.89 Other chest pain; I11.0 Hypertensive heart disease with heart failure; K21.9 Gastro-esophageal reflux disease without esophagitis; D50.9 Iron deficiency anemia, unspecified; E03.9 Hypothyroidism, unspecified; I25.10 Atherosclerotic heart disease of native coronary artery without angina pectoris; D25.9 Leiomyoma of uterus, unspecified; K75.81 Nonalcoholic steatohepatitis (NASH); F41.9 Anxiety disorder, unspecified; J45.909 Unspecified asthma, uncomplicated; E83.42 Hypomagnesemia; R16.0 Hepatomegaly, not elsewhere classified; M54.50 Low back pain, unspecified; E66.9 Obesity, unspecified; Z68.28 Body mass index [BMI] 28.0-28.9, adult; Z95.5 Presence of coronary angioplasty implant and graft
CPT/HCPCS: 0241U-QW; 36415; 71046-TC-FY; 71275-TC; 74174-TC; 80048; 80053; 81003; 83735; 83880; 84484; 85025; 87086; 93005; 93010; 99285-25; J1644; Q9967

== ENCOUNTER → 2023-12-16 | Day surgery (SDC) | payer OTHER ==
[2023-12-12 09:29] VITALS: BMI 30.9
[~2023-12-16] MED LIST changes: +BETAMET ACET/BETAMET NA PH 30 MG/5 ML VIAL ONE; -BUPIVACAINE HCL/PF 0.25% (2.5MG/ML) 10 ML VIAL IJ ONE; +BUPIVACAINE HCL/PF 0.25% (2.5MG/ML) 10 ML VIAL ONE; +BUPIVACAINE HCL/PF 0.5% (5MG/ML) 10 ML VIAL ONE; -DEXAMETHASONE SOD PHOSPHATE 10 MG/1 ML VIAL IVPUSH ONE; +DEXAMETHASONE SOD PHOSPHATE 10 MG/1 ML VIAL ONE; -IOHEXOL 180 MG/1 ML ML IJ ONE; -LIDOCAINE HCL 1%, 10 MG/ML (20ML VIAL) NR ONE; +LIDOCAINE HCL/PF 1% SDV 5ML VIAL ONE; +MIDAZOLAM HCL 2 MG/2 ML SINGLE DOSE VIAL ONE
[2023-12-16] MEDS: BUPIVACAINE HCL/PF 0.25% (2.5MG/ML) 10 ML VIAL IJ ONE (13:27)
[2023-12-16] MEDS: DEXAMETHASONE SOD PHOSPHATE 10 MG/1 ML VIAL IM ONE (13:27)
[2023-12-16] MEDS: IOHEXOL 180 MG/1 ML ML IJ ONE (13:27)
[2023-12-16] MEDS: LIDOCAINE HCL 1% PRESERVATIVE FREE - 30ML VIAL NR ONE (13:27)
[2023-12-16] MEDS: BUPIVACAINE HCL/PF 0.5% (5MG/ML) 10 ML VIAL NR ONE (13:27)
[2023-12-16 13:46] VITALS: RESP 20; TEMP 97.7
[2023-12-16 15:06] VITALS: BP 118/72; PULSE 78
== END | disposition home or self-care (01) ==
LOC: JASU-SURG 03:51
PROVIDERS: ATTEND Physical Medicine & Rehabilitation
PROC: 3E0R3BZ Introduction of Anesthetic Agent into Spinal Canal, Percutaneous Approach (ICD-10-PCS; 2023-12-16)
PROC: 3E0R33Z Introduction of Anti-inflammatory into Spinal Canal, Percutaneous Approach (ICD-10-PCS; principal; 2023-12-16 12:30)
DX: M54.16 Radiculopathy, lumbar region (principal)
CPT/HCPCS: 76000-TC-FY; J1100

== ENCOUNTER 2024-05-10 15:03 | Emergency (ER) | payer OTHER ==
[2024-05-10 15:15] VITALS: BP 139/89; PULSE 90; RESP 20; TEMP 98.4
== END 2024-05-10 17:57 | disposition home or self-care (01) ==
LOC: JER 15:03
DX: S93.401A Sprain of unspecified ligament of right ankle, initial encounter (principal); M25.461 Effusion, right knee; W01.0XXA Fall on same level from slipping, tripping and stumbling without subsequent striking against object, initial encounter; Y93.E5 Activity, floor mopping and cleaning; Y92.000 Kitchen of unspecified non-institutional (private) residence as the place of occurrence of the external cause
CPT/HCPCS: 73562-TC-RT-FY; 73610-TC-RT-FY; 73630-TC-RT-FY; 99283-25

== ENCOUNTER 2024-07-14 15:18 | Emergency (ER) | payer MEDICARE, OTHER ==
[2024-07-14 15:41] VITALS: BP 136/87; PULSE 88; RESP 16; TEMP 98.4; BMI 30.6
[2024-07-14 17:52] LABS: URINE APPEARANCE CLOUDY; URINE BILIRUBIN NEGATIVE (NEGATIVE); URINE COLOR DK YELLOW; URINE GLUCOSE (UA) NEGATIVE (NEGATIVE); URINE KETONE NEGATIVE (NEGATIVE)
[2024-07-14 17:53] LABS: EPI CELLS >36 /uL (0-25.1); HYALINE CASTS 5 /uL (0-3.1); PH,URINE 5.5 (5.0-8.0); URINE BACTERIA 2941 /uL (0-1359); URINE LEUK ESTERASE NEGATIVE (NEGATIVE); URINE NITRITE NEGATIVE (NEGATIVE); URINE PROTEIN 2+ (NEGATIVE)
[2024-07-14] MEDS ORDERED: ONDANSETRON 4 MG/2 ML VIAL ONE (18:17)
[2024-07-14] MEDS ORDERED: KETOROLAC TROMETHAMINE 30 MG/1 ML VIAL ONE (18:18)
[2024-07-14 18:19] LABS: BASO % 0.4 % (0-2.0); EOS % 2.6 % (0-4.5); HEMATOCRIT 34.6 % (32.4-45.2); HEMOGLOBIN 11.7 GM/dL (10.7-15.3); LYMPH % 28.4 % (8-40); MCH 29.1 pg (25.7-33.7); MCHC 33.7 g/dl (32.0-36.0); MEAN CELL VOLUME 86.2 fl (80-96); MEAN PLT VOLUME 7.2 fl (7.5-11.1); MONO % 6.8 % (3.8-10.2); NEUT % 61.8 % (42.8-82.8); PLATELET COUNT 221 10^3/uL (134-434); RBC 4.02 M/mm3 (3.60-5.2); RDW 14.5 % (11.6-15.6); WHITE BLOOD COUNT 6.6 K/mm3 (4.0-10.0)
[2024-07-14 18:38] LABS: POTASSIUM 3.5 mmol/L (3.5-5.1)
[2024-07-14] MEDS: SODIUM CHLORIDE 1,000 ML IV STA (18:38)
[2024-07-14 18:39] LABS: CALCIUM 9.7 mg/dL (8.5-10.1)
[2024-07-14] MEDS: KETOROLAC TROMETHAMINE 30 MG/1 ML VIAL IVPUSH ONE (18:39)
[2024-07-14] MEDS: ONDANSETRON 4 MG/2 ML VIAL IVPUSH ONE (18:39)
[2024-07-14 18:40] LABS: ALBUMIN 3.8 g/dl (3.4-5.0)
[2024-07-14 18:43] LABS: CREATININE 0.9 mg/dL (0.55-1.3)
[2024-07-14 18:45] LABS: BILIRUBIN,TOTAL 0.6 mg/dL (0.2-1); TOT PROT 8.1 g/dl (6.4-8.2)
[2024-07-14 19:34] LABS: HIV INTERPRETATION NEGATIVE (NEGATIVE)
[2024-07-14] MEDS ORDERED: CEFTRIAXONE 1 GM/50 ML BAG ONE (20:12)
[2024-07-14] MEDS: CEFTRIAXONE 1 GM in DEXTROSE 5%-WATER - 100 ML IVPB ONE (20:21)
[2024-07-14] MEDS ORDERED: traMADol HCL 50 MG TABLET ONE (20:39)
[2024-07-14 20:48] LABS: URINE RBC 114 /uL (0-23.9); URINE WBC 148 /uL (0-25.8)
[2024-07-14] MEDS: traMADol HCL 50 MG TABLET PO ONE (21:44)
== END 2024-07-14 21:45 | disposition home or self-care (01) ==
LOC: JER 15:18
PROC: 3E03329 Introduction of Other Anti-infective into Peripheral Vein, Percutaneous Approach (ICD-10-PCS; principal; 2024-07-14)
PROC: 3E0333Z Introduction of Anti-inflammatory into Peripheral Vein, Percutaneous Approach (ICD-10-PCS; 2024-07-14)
PROC: 3E033GC Introduction of Other Therapeutic Substance into Peripheral Vein, Percutaneous Approach (ICD-10-PCS; 2024-07-14)
DX: N30.90 Cystitis, unspecified without hematuria (principal); R10.9 Unspecified abdominal pain; R11.0 Nausea
CPT/HCPCS: 36415; 74176-TC; 80053; 81003; 83690; 85025; 86803; 87086; 87389; 96365; 96375; 99284-25

== ENCOUNTER 2024-12-25 05:19 | Day surgery (SDC) | payer OTHER ==
[2024-12-22 10:46] VITALS: BMI 31.8
[2024-12-25] MEDS ORDERED: MIDAZOLAM HCL 2 MG/2 ML SINGLE DOSE VIAL ONE ×2 (13:45→14:01)
[2024-12-25] MEDS: ceFAZolin SODIUM 1 GM VIAL IVPB ONE ×2 (13:58)
[2024-12-25] MEDS: LIDOCAINE HCL 1% PRESERVATIVE FREE - 30ML VIAL IJ ONE (14:08)
[2024-12-25] MEDS: LIDOCAINE HCL/PF 2% SDV 5ML VIAL INF ONE (14:16)
[2024-12-25] MEDS ORDERED: PROPOFOL 20 ML ONE ×5 (14:19→16:17)
[2024-12-25] MEDS ORDERED: ONDANSETRON 4 MG/2 ML VIAL IVPUSH PRN (17:18)
[2024-12-25] MEDS ORDERED: PROMETHAZINE HCL 25 MG/1 ML VIAL IVPB PRN (17:18)
[2024-12-25] MEDS ORDERED: oxyCODONE HCL 5 MG TABLET PO PRN (17:18)
[2024-12-25] MEDS ORDERED: LACTATED RINGERS SOLUTION 1,000 ML IV SCH (17:30)
[2024-12-25] MEDS: oxyCODONE HCL 5 MG TABLET PO PRN (18:05)
[2024-12-25] MEDS ORDERED: oxyCODONE HCL 5 MG TABLET ONE (18:06)
[2024-12-25 18:20] VITALS: RESP 20; TEMP 97
[2024-12-25 18:57] VITALS: BP 120/73; PULSE 62
== END 2024-12-25 19:45 | disposition home or self-care (01) ==
LOC: JASU-SURG 05:19
PROVIDERS: ATTEND Pain Medicine Pain Medicine
PROC: 015R3ZZ Destruction of Sacral Nerve, Percutaneous Approach (ICD-10-PCS; 2024-12-25)
PROC: 015B3ZZ Destruction of Lumbar Nerve, Percutaneous Approach (ICD-10-PCS; principal; 2024-12-25 14:03)
DX: M54.51 Vertebrogenic low back pain (principal)
CPT/HCPCS: 76000-TC-FY; 94760

== ENCOUNTER 2025-03-31 07:06 | Day surgery (SDC) | payer OTHER ==
[2025-03-31] MEDS: LIDOCAINE HCL 4% PRESERVE-FREE 5 ML AMP NR ONE ×2 (12:08→13:08)
[2025-03-31] MEDS: LIDOCAINE HCL 1% PRESERVATIVE FREE - 30ML VIAL INF ONE ×2 (12:08→13:08)
[2025-03-31] MEDS ORDERED: PROPOFOL 60 ML ONE (13:35)
[2025-03-31] MEDS ORDERED: MIDAZOLAM HCL 2 MG/2 ML SINGLE DOSE VIAL ONE ×3 (13:35→14:13)
[2025-03-31] MEDS ORDERED: KETAMINE HCL 200 MG/20 ML VIAL ONE (13:35)
[2025-03-31] MEDS ORDERED: LIDOCAINE HCL 2% 100 MG/5 ML DISP.SYRIN ONE (13:35)
[2025-03-31] MEDS ORDERED: GLYCOPYRROLATE 0.2 MG/1 ML VIAL ONE (13:35)
[2025-03-31] MEDS ORDERED: LIDOCAINE HCL 1%, 10 MG/ML (20ML VIAL) ONE (13:36)
[2025-03-31] MEDS ORDERED: LIDOCAINE HCL 2% (20ML MULTI-DOSE VIAL) ONE (13:37)
[2025-03-31] MEDS ORDERED: LIDOCAINE HCL/PF 2% SDV 5ML VIAL ONE (13:37)
[2025-03-31] MEDS ORDERED: LIDOCAINE HCL/PF 1% SDV 5ML VIAL ONE (13:41)
[2025-03-31] MEDS: ceFAZolin SODIUM 1 GM VIAL IVPB ONE (13:50)
[2025-03-31] MEDS ORDERED: ONDANSETRON 4 MG/2 ML VIAL IVPUSH PRN (15:33)
[2025-03-31] MEDS ORDERED: ACETAMINOPHEN INJECTION 100 ML ONE (15:38)
[2025-03-31] MEDS: ACETAMINOPHEN 1000 MG/100 ML BAG IVPB ONE (15:43)
[2025-03-31] MEDS: LACTATED RINGERS SOLUTION 1,000 ML IV SCH (15:44)
[2025-03-31] MEDS ORDERED: oxyCODONE HCL 5 MG TABLET ONE (17:54)
[2025-03-31] MEDS: oxyCODONE HCL 5 MG TABLET PO PRN (17:58)
[2025-03-31 18:16] VITALS: RESP 18; TEMP 97.3
[2025-03-31 18:38] VITALS: BP 160/87; PULSE 89
== END 2025-03-31 18:40 | disposition home or self-care (01) ==
LOC: JASU-SURG 07:06
PROVIDERS: ATTEND Pain Medicine Pain Medicine
PROC: 015B3ZZ Destruction of Lumbar Nerve, Percutaneous Approach (ICD-10-PCS; principal; 2025-03-31 12:30)
DX: M54.51 Vertebrogenic low back pain (principal)
CPT/HCPCS: 64628; C1889; 76000-TC-FY; 94760; C1886

== ENCOUNTER 2025-05-04 17:25 | Emergency (ER) | payer OTHER ==
[2025-05-04 17:34] VITALS: BP 134/89; PULSE 65; RESP 20; TEMP 98.4; BMI 32.8
[2025-05-04 18:45] LABS: ABSOLUTE IMMATURE GRANULOCYTES 0.03 x10^3/uL (0.0-0.031); BASOPHILS # 0.03 x10^3/uL (0.01-0.08); EOSINOPHIL % 1.3 % (0.7-5.8); EOSINOPHILS # 0.10 x10^3/uL (0.04-0.36); MCHC 32.3 g/dl (32.2-35.5); MEAN CELL VOLUME 88.6 fl (79.4-94.8); MEAN PLT VOLUME 9.3 fl (9.4-12.3); MONOCYTE # 0.56 x10^3/uL (0.24-0.86); MONOCYTE % 7.4 % (4.7-12.5); RDW 13.8 % (12.3-16.6)
[2025-05-04 19:25] LABS: CO2 24.0 mmol/L (21-32)
[2025-05-04 19:26] LABS: GLUCOSE,RANDOM 106.0 mg/dL (74-106)
[2025-05-04 19:28] LABS: SGOT/AST 21.0 U/L (15-37); SGPT/ALT 27.0 U/L (13-61)
[2025-05-04 19:29] LABS: CREATININE 0.9 mg/dL (0.55-1.3)
[2025-05-04 19:30] LABS: ALK PHOS 110.0 U/L (45-117); TOT PROT 7.9 g/dl (6.4-8.2)
[2025-05-04] MEDS: ACETAMINOPHEN WITH CODEINE 300MG/30MG TABLET PO ONE (20:57)
[2025-05-05 00:28] LABS: HIV INTERPRETATION NEGATIVE (NEGATIVE)
[2025-05-05 00:29] LABS: HCV DIAGNOSTIC IN-HOUSE W/RFLX NON-REACTIVE (NONREACTIVE)
== END 2025-05-04 21:02 | disposition home or self-care (01) ==
LOC: JER 17:25
DX: R07.89 Other chest pain (principal); R42 Dizziness and giddiness; R51.9 Headache, unspecified; M54.2 Cervicalgia; H53.8 Other visual disturbances
CPT/HCPCS: 36415; 71046-TC-FY; 80053; 83735; 84484; 85025; 86803; 87389; 93005; 93010; 99285-25

== ENCOUNTER 2025-07-19 15:24 | Emergency (ER) | payer OTHER ==
[2025-07-19 15:51] VITALS: BP 139/83; PULSE 58; RESP 18; TEMP 98.2; BMI 32.4
[2025-07-19 16:49] LABS: EPI CELLS 7 /uL (0-25.1); HYALINE CASTS 0 /uL (0-3.1); URINE APPEARANCE CLEAR; URINE BACTERIA 13 /uL (0-1359); URINE BILIRUBIN NEGATIVE (NEGATIVE); URINE COLOR YELLOW; URINE GLUCOSE (UA) NEGATIVE (NEGATIVE); URINE KETONE TRACE (NEGATIVE); URINE LEUK ESTERASE NEGATIVE (NEGATIVE); URINE NITRITE NEGATIVE (NEGATIVE); URINE PROTEIN 1+ (NEGATIVE); URINE RBC 33 /uL (0-23.9); URINE UROBILINOGEN 0.2 mg/dL (0.2-1.0); URINE WBC 5 /uL (0-25.8)
[2025-07-19] MEDS ORDERED: ONDANSETRON 4 MG/2 ML VIAL ONE (16:49)
[2025-07-19] MEDS ORDERED: KETOROLAC TROMETHAMINE 15 MG/ML VIAL ONE (16:49)
[2025-07-19] MEDS ORDERED: MORPHINE SULFATE 2 MG/ML SYRINGE ONE (16:49)
[2025-07-19 16:59] LABS: ABSOLUTE IMMATURE GRANULOCYTES 0.02 x10^3/uL (0.0-0.031); BASOPHILS # 0.05 x10^3/uL (0.01-0.08); EOSINOPHIL % 4.1 % (0.7-5.8); EOSINOPHILS # 0.30 x10^3/uL (0.04-0.36); MCHC 31.3 g/dl (32.2-35.5); MEAN CELL VOLUME 89.6 fl (79.4-94.8); MEAN PLT VOLUME 9.5 fl (9.4-12.3); MONOCYTE # 0.48 x10^3/uL (0.24-0.86); MONOCYTE % 6.6 % (4.7-12.5); RDW 13.8 % (12.3-16.6)
[2025-07-19] MEDS: SODIUM CHLORIDE 0.9% 500 ML INFUS.BAG IV ONE (17:06)
[2025-07-19] MEDS: morphine CARPU-JECT 2 MG/1 ML DISP.SYRIN IVPUSH ONE (17:06)
[2025-07-19] MEDS: ONDANSETRON 4 MG/2 ML VIAL IVPUSH ONE (17:06)
[2025-07-19] MEDS: KETOROLAC TROMETHAMINE 15 MG/ML VIAL IVPUSH ONE (17:06)
[2025-07-19 17:26] LABS: GLUCOSE,RANDOM 87.0 mg/dL (74-106)
[2025-07-19 17:27] LABS: TOT PROT 7.6 g/dl (6.4-8.2)
[2025-07-19 17:28] LABS: CO2 21.0 mmol/L (21-32)
[2025-07-19 17:29] LABS: ALK PHOS 95.0 U/L (40-150)
[2025-07-19 17:32] LABS: CREATININE 0.72 mg/dL (0.55-1.3); SGOT/AST 37.0 U/L (5-34); SGPT/ALT 18.0 U/L (0-55)
[2025-07-19 18:37] LABS: HCV DIAGNOSTIC IN-HOUSE W/RFLX NON-REACTIVE (NONREACTIVE); HIV INTERPRETATION NEGATIVE (NEGATIVE)
== END 2025-07-19 18:33 | disposition home or self-care (01) ==
LOC: JER 15:24
PROC: 3E0333Z Introduction of Anti-inflammatory into Peripheral Vein, Percutaneous Approach (ICD-10-PCS; principal; 2025-07-19)
PROC: 3E033NZ Introduction of Analgesics, Hypnotics, Sedatives into Peripheral Vein, Percutaneous Approach (ICD-10-PCS; 2025-07-19)
PROC: 3E033GC Introduction of Other Therapeutic Substance into Peripheral Vein, Percutaneous Approach (ICD-10-PCS; 2025-07-19)
DX: R10.11 Right upper quadrant pain (principal); R10.31 Right lower quadrant pain; R10.13 Epigastric pain; M54.50 Low back pain, unspecified; R30.0 Dysuria; R11.0 Nausea; R06.02 Shortness of breath
CPT/HCPCS: 36415; 71046-TC-FY; 74176-TC; 80053; 81003; 83880; 84484; 85025; 86803; 87086; 87389; 93005; 93010; 99285-25